=== PATIENT | female | born 1955 | race Caucasian/White ===

== ENCOUNTER 2023-06-05 15:57 | Inpatient (IN) | payer MEDICARE, SELFPAY ==
[2023-06-05] VITALS (20 sets, daily range): BP systolic 109–168; BP diastolic 80–96; PULSE 90–109; RESP 18–20; TEMP 36.7–37.1; O2SAT 92–98; BMI 31.0; BMI 30.3
--- NOTE | 2023-06-05 16:24 | ECG_ITS ---
[facility] Test Date: 2023-06-05 Pat Name: MIRANDA GILLILAND Department: Room: - Gender: Female Creative/Art Director: : 1955 Requested By: CIRO CLEARY Order Number: [id number] Reading MD: ANGELIKA MANUEL Measurements Intervals Hext Rate: 106 P: 78 LA: 152 QRS: 81 QRSD: 88 T: 79 QT: 334 QTc: 396 Interpretive Statements 1120 Sinus tachycardia 0102 ARTIFACT PRESENT 9140 abnormal rhythm ECG Compared to ECG 06/07/2021 00:46:59 No significant changes Electronically Signed On 06-06-2023 7:07:29 EST by ANGELIKA MANUEL
--- NOTE | 2023-06-05 16:25 | ED_ITS ---
Documented by User: Raya Stover 06/05/23 19:24 HPI - SOB/Dyspnea General Chief Complaint: Shortness of Breath/Dyspnea Stated Complaint: Shortness of Breath Time Seen by Provider: 06/05/23 16:24 Source: patient Mode of arrival: walk-in Limitations: no limitations History of Present Illness HPI Narrative: 67 year old female presents to the ED for cough, congestion, SOB, fatigue. Onset was 06/02/23. Denies fever, chills, edema, N/V/D. She was evaluated at an urgent care after the onset. States she tested negative for Covid-19 and influenza. She has hx asthma. She was placed on albuterol and a medrol Dosepak at the urgent care. Reports a pulmonary embolus 10 years ago. She is no longer on blood thinner medication. She was sent to the ED today by her pcp. Denies pain. MD elicited complaint: shortness of breath and cough Related Data Home Medications Medication Instructions Recorded Confirmed albuterol sulfate 90 mcg/actuation 1 inh inhalation DAILY PRN 06/05/23 06/05/23 aerosol inhaler bronchospasm lisinopril 10 1 tab PO DAILY 06/05/23 06/05/23 mg-hydrochlorothiazide 12.5 mg tablet methylprednisolone 4 mg tablets in 4 mg PO DAILY 06/05/23 06/05/23 a dose pack pyrilamine 7.5 mg-dextromethorphan 10 ml PO DAILY 06/05/23 06/05/23 7.5 mg/5 mL oral liquid (Talbott DM) Allergies Allergy/AdvReac Type Severity Reaction Status Date / Time No Known Drug Allergies Allergy Verified 06/05/23 16:10 Review of Systems ROS Constitutional Reports: chills and fatigue; Denies: fever Ears, nose, mouth, and throat Denies: throat pain or neck pain Cardiovascular Denies: chest pain, edema or lightheadedness Respiratory Reports: shortness of breath, cough and wheezing; Denies: stridor Gastrointestinal Denies: abdominal pain, nausea, vomiting or diarrhea Musculoskeletal Denies: back pain or neck pain Neurological Denies: headache, weakness in extremities or dizziness PFSH PFSH Social History Smoking status: Current every day smoker Exam Constitutional Vital Signs, click to edit/add: Last Vital Signs Pulse 100 H 06/05/23 19:48 Resp 20 06/05/23 19:48 BP 154/95 H 06/05/23 19:01 Pulse Ox 93 L 06/05/23 19:48 O2 Del Method Room Air 06/05/23 18:15 Common normals: oriented x3 General appearance: cooperative and ill appearing HENMT Nose: external nose normal External ear: external ears normal Mouth: oral and palatal mucosa normal, lip normal and tongue normal Eye Common normals: conjunctivae normal and no scleral icterus Neck & C-Spine Common normals: supple Chest Chest: symmetrical chest wall rise Respiratory Effort & inspection: tachypneic and labored; no stridor Auscultation: wheezes and diminished lung sounds Cardio Common normals: regular rhythm Rate: tachycardic Extremity General: no edema Neuro Common normals: oriented x3 Sensorium/orientation: awake and alert Course Vital Signs Vital signs: Vital Signs Pulse Rate 105 H 06/05/23 16:10 Respiratory Rate 06/05/23 16:10 Blood Pressure 130/96 H 06/05/23 16:10 Pulse Oximetry 93 L 06/05/23 16:10 Pulse Rate 100 H 06/05/23 19:48 Respiratory Rate 06/05/23 19:48 Blood Pressure 154/95 H 06/05/23 19:01 Pulse Oximetry 93 L 06/05/23 19:48 Oxygen Delivery Method Room Air 06/05/23 18:15 MDM - SOB/Dyspnea MDM Narrative Medical decision making narrative: Chest x-ray was negative for acute findings. Covid-19 and influenza were negative. The patient was given solumedrol, DuoNeb, and Albuterol with little improvement. She has been taking steroids and albuterol at home with no improvement. She has continued increased work of breathing, tachypnea. She will be admitted for further evaluation and treatment. I spoke with Eugenio Frank SANDING MACHINE OPERATOR who was covering for Dr. Duff. He accepted the patient for admission. Differential Diagnosis Differential diagnosis: Likely acute exacerbation of chronic obstructive airways disease, congestive heart failure, community acquired pneumonia, asthma with exacerbation and pulmonary embolism Medical Records Attestation: I reviewed the patient's medical records. Lab Data Attestation: I reviewed the patient's lab results. Labs: Lab Results 06/05/23 06/05/23 Range/Units 16:31 16:35 WBC 8.5 (4.0-11.0) 10^3/uL RBC 4.25 (4.20-5.40) 10^6/uL Hgb 14.4 (12.0-16.0) g/dL Hct 42.8 (36.0-48.0) % MCV 100.7 H (81.0-99.0) fL MCH 33.9 (26.7-34.0) pg MCHC 33.6 (29.9-35.2) g/dL RDW 12.8 (11.0-15.0) % Plt Count 192 (150-450) 10^3/uL MPV 9.1 L (9.5-13.5) fL Neut % (Auto) 82.8 H (43.0-75.0) % Lymph % (Auto) 10.9 L (20.5-60.0) % [place] % (Auto) 5.6 (1.7-12.0) % Eos % (Auto) 0.1 L (0.9-7.0) % Baso % (Auto) 0.4 (0.2-2.0) % Neut # (Auto) 7.1 H (1.4-6.5) 10^3/uL Lymph # (Auto) 0.9 L (1.2-3.8) 10^3/uL [place] # (Auto) 0.5 (0.3-0.8) 10^3/uL Eos # (Auto) 0.0 (0.0-0.7) 10^3/uL Baso # (Auto) 0.0 (0.0-0.1) 10^3/uL Abs Immat Gran (auto) 0.02 (0.00-0.03) 10^3/uL Imm/Tot Granulo (auto) 0.2 (0.0-0.5) % D-Dimer 0.26 (<=0.59) mg/L FEU Sodium 141 (136-145) mmol/L Potassium 4.2 (3.5-5.1) mmol/L Chloride 101 (98-107) mmol/L Carbon Dioxide 32.7 H (21.0-32.0) mmol/L Anion Gap 11.5 BUN 18.0 (7.0-18.0) mg/dL Creatinine 0.63 (0.55-1.02) mg/dL Est GFR ( Amer) >60 (>=60) Est GFR (Non-Af Amer) >60 (>=60) BUN/Creatinine Ratio 28.6 Glucose 104 (74-106) mg/dL Calcium 9.5 (8.5-10.1) mg/dL Troponin I High Sens 4.8 (4.0-51.3) pg/mL NT-Pro-B Natriuret Pep 235.0 (<=900.0) pg/mL SARS-CoV-2 (PCR) Negative (NEGATIVE) Influenza Type A Ag Negative Influenza Type B Ag Negative Imaging Data Chest x-ray: Attestation: I have reviewed the pertinent imaging results. Radiologist's impression: Procedure: XR chest 1V EXAM: XR chest 1V REASON FOR EXAM: Female, 67 years, cough, SOB. TECHNIQUE: A single AP view of the chest is performed. COMPARISON: 06/13/2021. FINDINGS: Cardiac monitoring leads overlie the chest. The lungs are expanded and clear. Normal pleura. The previously seen irregular cavitary lesion in the right upper lobe has resolved. Normal size heart. Normal mediastinum and sharon. Normal visualized pulmonary arteries. Normal visualized aortic arch and descending thoracic aorta. Normal visualized thoracic spine. Normal visualized ribs, clavicles, and shoulders. There is no demonstrated abnormality of the visualized soft tissue structures of the upper abdomen. XR/XR chest 1V IMPRESSION: No acute process in the chest. Electronically authenticated by: LILIANA AMAYA Date: 06/05/2023 17:41 ECG Data Attestation: ?I have reviewed the pertinent ECG results. Interpretation: Measurements Intervals Orr Rate: 106 P: 78 [place]: 152 QRS: 81 QRSD: 88 T: 79 QT: 334 QTc: 396 Interpretive Statements 1120 Sinus tachycardia 0102 ARTIFACT PRESENT 9140 abnormal rhythm ECG No previous ECG available for comparison Discharge Plan Discharge Chief Complaint: Shortness of Breath/Dyspnea Clinical Impression: Asthma with acute exacerbation Patient Disposition: Admitted as Observation Time of Disposition Decision: 18:32 Condition: Fair Documented by User: Slim Mensah MD 06/05/23 20:06 HPI - SOB/Dyspnea General Chief Complaint: Shortness of Breath/Dyspnea Stated Complaint: Shortness of Breath Time Seen by Provider: 06/05/23 16:24 Related Data Home Medications Medication Instructions Recorded Confirmed albuterol sulfate 90 mcg/actuation 1 inh inhalation DAILY PRN 06/05/23 06/05/23 aerosol inhaler bronchospasm lisinopril 10 1 tab PO DAILY 06/05/23 06/05/23 mg-hydrochlorothiazide 12.5 mg tablet methylprednisolone 4 mg tablets in 4 mg PO DAILY 06/05/23 06/05/23 a dose pack pyrilamine 7.5 mg-dextromethorphan 10 ml PO DAILY 06/05/23 06/05/23 7.5 mg/5 mL oral liquid (Talbott DM) Allergies Allergy/AdvReac Type Severity Reaction Status Date / Time No Known Drug Allergies Allergy Verified 06/05/23 16:10 [facility] Social History Smoking status: Current every day smoker Exam Constitutional Vital Signs, click to edit/add: Last Vital Signs Pulse 100 H 06/05/23 19:48 Resp 20 06/05/23 19:48 BP 154/95 H 06/05/23 19:01 Pulse Ox 93 L 06/05/23 19:48 O2 Del Method Room Air 06/05/23 18:15 Course Vital Signs Vital signs: Vital Signs Pulse Rate 105 H 06/05/23 16:10 Respiratory Rate 06/05/23 16:10 Blood Pressure 130/96 H 06/05/23 16:10 Pulse Oximetry 93 L 06/05/23 16:10 Pulse Rate 100 H 06/05/23 19:48 Respiratory Rate 20 06/05/23 19:48 Blood Pressure 154/95 H 06/05/23 19:01 Pulse Oximetry 93 L 06/05/23 19:48 Oxygen Delivery Method Room Air 06/05/23 18:15 MDM - SOB/Dyspnea MDM Narrative Medical decision making narrative: Chest x-ray was negative for acute findings. Covid-19 and influenza were negative. The patient was given solumedrol, DuoNeb, and Albuterol with little improvement. She has been taking steroids and albuterol at home with no improvement. She has continued increased work of breathing, tachypnea. She will be admitted for further evaluation and treatment. I spoke with Eugenio Frank SANDING MACHINE OPERATOR who was covering for Dr. Duff. He accepted the patient for admission. I, Dr Mensah, have reviewed the above progress note and course of action in the ER; agree with the above. I have personally seen and evaluated this patient, gone over history and physical, and discussed disposition and treatment plan with the patient. Lab Data Labs: Lab Results 06/05/23 06/05/23 Range/Units 16:31 16:35 WBC 8.5 (4.0-11.0) 10^3/uL RBC 4.25 (4.20-5.40) 10^6/uL Hgb 14.4 (12.0-16.0) g/dL Hct 42.8 (36.0-48.0) % MCV 100.7 H (81.0-99.0) fL MCH 33.9 (26.7-34.0) pg MCHC 33.6 (29.9-35.2) g/dL RDW 12.8 (11.0-15.0) % Plt Count 192 (150-450) 10^3/uL MPV 9.1 L (9.5-13.5) fL Neut % (Auto) 82.8 H (43.0-75.0) % Lymph % (Auto) 10.9 L (20.5-60.0) % [place] % (Auto) 5.6 (1.7-12.0) % Eos % (Auto) 0.1 L (0.9-7.0) % Baso % (Auto) 0.4 (0.2-2.0) % Neut # (Auto) 7.1 H (1.4-6.5) 10^3/uL Lymph # (Auto) 0.9 L (1.2-3.8) 10^3/uL [place] # (Auto) 0.5 (0.3-0.8) 10^3/uL Eos # (Auto) 0.0 (0.0-0.7) 10^3/uL Baso # (Auto) 0.0 (0.0-0.1) 10^3/uL Abs Immat Gran (auto) 0.02 (0.00-0.03) 10^3/uL Imm/Tot Granulo (auto) 0.2 (0.0-0.5) % D-Dimer 0.26 (<=0.59) mg/L FEU Sodium 141 (136-145) mmol/L Potassium 4.2 (3.5-5.1) mmol/L Chloride 101 (98-107) mmol/L Carbon Dioxide 32.7 H (21.0-32.0) mmol/L Anion Gap 11.5 BUN 18.0 (7.0-18.0) mg/dL Creatinine 0.63 (0.55-1.02) mg/dL Est GFR ( Amer) >60 (>=60) Est GFR (Non-Af Amer) >60 (>=60) BUN/Creatinine Ratio 28.6 Glucose 104 (74-106) mg/dL Calcium 9.5 (8.5-10.1) mg/dL Troponin I High Sens 4.8 (4.0-51.3) pg/mL NT-Pro-B Natriuret Pep 235.0 (<=900.0) pg/mL SARS-CoV-2 (PCR) Negative (NEGATIVE) Influenza Type A Ag Negative Influenza Type B Ag Negative ECG Data Attestation: I personally reviewed and interpreted this ECG as follows: (EKG interpretation. Sinus tachycardia at one 06, normal axis deviation. Artifact seen. QTC of 396.) Discharge Plan Discharge Chief Complaint: Shortness of Breath/Dyspnea Clinical Impression: Asthma with acute exacerbation Patient Disposition: Admitted as Observation Time of Disposition Decision: 18:32 Condition: Fair
[2023-06-05] MEDS: IPRATROPIUM/ALBUTEROL SULFATE 3 ML AMPUL.NEB IH ×2 (16:36→22:57)
[2023-06-05] MEDS: METHYLPREDNISOLONE SOD SUCC PF 125 MG/2 ML VIAL IVP (16:45)
[2023-06-05 16:52] LABS: Basophils Percent Auto 0.4 % (0.2-2.0); Eosinophils Percent Auto 0.1 % (0.9-7.0); Hematocrit 42.8 % (36.0-48.0); Hemoglobin 14.4 g/dL (12.0-16.0); Immature Granulocytes Abs Auto 0.02 10^3/uL (0.00-0.03); Immature Granulocytes Pct Auto 0.2 % (0.0-0.5); Lymphocytes Absolute Auto 0.9 10^3/uL (1.2-3.8); Lymphocytes Percent Auto 10.9 % (20.5-60.0); Mean Corpuscular HGB Conc 33.6 g/dL (29.9-35.2); Mean Corpuscular Hemoglobin 33.9 pg (26.7-34.0); Mean Corpuscular Volume 100.7 fL (81.0-99.0); Mean Platelet Volume 9.1 fL (9.5-13.5); Monocytes Absolute Auto 0.5 10^3/uL (0.3-0.8); Monocytes Percent Auto 5.6 % (1.7-12.0); Neutrophils Absolute Auto 7.1 10^3/uL (1.4-6.5); Neutrophils Percent Auto 82.8 % (43.0-75.0); Platelet Count 192 10^3/uL (150-450); Red Blood Count 4.25 10^6/uL (4.20-5.40); Red Cell Distribution Width 12.8 % (11.0-15.0); White Blood Count 8.5 10^3/uL (4.0-11.0)
--- NOTE | 2023-06-05 17:02 | XR_ITS ---
The [address] [address] Patient Name: MIRANAD GILLILAND MRN: [id number] date: 1955 Sex: F Assigned Patient Location: ED.MAIN Current Patient Location: ER Accession/Order Number: [id number] Exam Date: 06/05/2023 16:55 Report Date: 06/05/2023 17:41 At the request of: SATHYA HELM Procedure: XR chest 1V EXAM: XR chest 1V REASON FOR EXAM: Female, 67 years, cough, SOB. TECHNIQUE: A single AP view of the chest is performed. COMPARISON: 06/13/2021. FINDINGS: Cardiac monitoring leads overlie the chest. The lungs are expanded and clear. Normal pleura. The previously seen irregular cavitary lesion in the right upper lobe has resolved. Normal size heart. Normal mediastinum and sharon. Normal visualized pulmonary arteries. Normal visualized aortic arch and descending thoracic aorta. Normal visualized thoracic spine. Normal visualized ribs, clavicles, and shoulders. There is no demonstrated abnormality of the visualized soft tissue structures of the upper abdomen. XR/XR chest 1V IMPRESSION: No acute process in the chest. Electronically authenticated by: LILIANA AMAYA Date: 06/05/2023 17:41
[2023-06-05 17:06] LABS: D Dimer 0.26 mg/L FEU (<=0.59)
[2023-06-05 17:08] LABS: Influenza Virus A Antigen Negative; Influenza Virus B Antigen Negative; Internal Control Within Normal Limits; SARS-CoV-2 Ag NEGATIVE (NEGATIVE)
[2023-06-05 17:13] LABS: Anion Gap 11.5; BUN Creatinine Ratio 28.6; Calcium 9.5 mg/dL (8.5-10.1); Carbon Dioxide 32.7 mmol/L (21.0-32.0); Chloride 101 mmol/L (98-107); Estimated GFR (African America >60 (>=60); Estimated GFR (Non-African Ame >60 (>=60); Glucose 104 mg/dL (74-106); Potassium 4.2 mmol/L (3.5-5.1); Sodium 141 mmol/L (136-145); Troponin I High Sensitivity 4.8 pg/mL (4.0-51.3)
[2023-06-05] MEDS: ALBUTEROL SULFATE 2.5 MG/3 ML VIAL NEB IH (18:12)
[2023-06-05] MEDS: GUAIFENESIN 600 MG TAB.ER.12H PO (21:51)
[2023-06-06] VITALS (15 sets, daily range): BP systolic 148–185; BP diastolic 82–103; PULSE 89–107; RESP 18–20; TEMP 36.4–36.6; O2SAT 90–94; BMI 31.0
[2023-06-06] MEDS: METHYLPREDNISOLONE SOD SUCC PF 125 MG/2 ML VIAL 60 MG IVP ×3 (01:32→17:26)
[2023-06-06] MEDS: IPRATROPIUM/ALBUTEROL SULFATE 3 ML AMPUL.NEB IH ×6 (04:02→23:56)
[2023-06-06 05:26] LABS: Hematocrit 40.7 % (36.0-48.0); Hemoglobin 13.7 g/dL (12.0-16.0); Mean Corpuscular HGB Conc 33.7 g/dL (29.9-35.2); Mean Corpuscular Hemoglobin 33.6 pg (26.7-34.0); Mean Corpuscular Volume 99.8 fL (81.0-99.0); Mean Platelet Volume 9.2 fL (9.5-13.5); Platelet Count 162 10^3/uL (150-450); Red Blood Count 4.08 10^6/uL (4.20-5.40); Red Cell Distribution Width 12.6 % (11.0-15.0); White Blood Count 4.4 10^3/uL (4.0-11.0)
[2023-06-06 05:34] LABS: Anion Gap 9.9; BUN Creatinine Ratio 23.2; Calcium 9.4 mg/dL (8.5-10.1); Carbon Dioxide 32.6 mmol/L (21.0-32.0); Chloride 100 mmol/L (98-107); Estimated GFR (African America >60 (>=60); Estimated GFR (Non-African Ame >60 (>=60); Glucose 170 mg/dL (74-106); Potassium 3.5 mmol/L (3.5-5.1); Sodium 139 mmol/L (136-145)
[2023-06-06 05:47] LABS: Atypical Lymphocytes Abs Man 0.26; Lymphocytes Absolute Manual 0.22 10^3/uL (1.20-3.80); Monocytes Absolute Manual 0.04 10^3/uL (0.30-0.80); Segmented Neut Absolute Manual 3.87 10^3/uL (1.4-6.5)
[2023-06-06] MEDS: LISINOPRIL 10 MG TABLET PO (09:02)
[2023-06-06] MEDS: ENOXAPARIN SODIUM 40 MG/0.4 ML SYRINGE SUBQ (09:02)
[2023-06-06] MEDS: HYDROCHLOROTHIAZIDE 25 MG TABLET 12.5 MG PO (09:02)
[2023-06-06] MEDS: GUAIFENESIN 600 MG TAB.ER.12H PO ×2 (09:03→20:56)
--- NOTE | 2023-06-06 09:10 | CT_ITS ---
[address] [address] Patient Name: MIRANDA GILLILAND MRN: [id number] date: 1955 Sex: F Assigned Patient Location: [place] Current Patient Location: [place] Accession/Order Number: [id number] Exam Date: 06/06/2023 09:40 Report Date: 06/06/2023 10:08 At the request of: CIRO CLEARY Procedure: CT angio chest EXAMINATION: CT angio chest HISTORY: SOB, History of PE COMPARISON: 06/05/2023 chest x-ray. 06/13/2021 CT chest TECHNIQUE: Multi-planar CT images were created with IV contrast. Axial, Coronal, and Sagittal images. Dose reduction techniques were achieved by using automated exposure control and/or adjustment of mA and/or kV according to patient size and/or use of iterative reconstruction technique. FINDINGS: LUNGS: Resolution of the previously identified right upper lobe abscess with linear opacities likely representing residual scarring. Mild peribronchial thickening. Scattered punctate opacities with a peripheral predominance measuring up to 5 mm in size. PLEURA: Incidental azygos fissure. VASCULATURE: Normal postcontrast opacification of the central pulmonary arterial tree with no filling defects AFSHIN: No mass or adenopathy. MEDIASTINUM: No mass or adenopathy. CARDIAC: No enlargement or pericardial effusion. Moderate to heavy coronary atherosclerosis AORTA: No aneurysm or dissection. Moderate atherosclerosis CHEST WALL: No mass or axillary adenopathy. BONES: No bone lesion or fracture. LIMITED ABDOMEN: No suspicious findings. Limited images of the upper abdomen. OTHER: Negative. CT/CT angio chest IMPRESSION: No central pulmonary thromboembolic disease Scattered peripheral patchy infiltrates, consider atypical pneumonia/bronchiolitis Electronically authenticated by: CALI BRITO Date: 06/06/2023 10:08
[2023-06-06 09:31] LABS: Adenovirus NOT DETECTED (NOT DETECTE); Bordetella parapertussis NOT DETECTED (NOT DETECTE); Coronavirus 229E NOT DETECTED (NOT DETECTE); Coronavirus HKU1 NOT DETECTED (NOT DETECTE); Coronavirus NL63 NOT DETECTED (NOT DETECTE); Coronavirus OC43 NOT DETECTED (NOT DETECTE); Human Metapneumovirus NOT DETECTED (NOT DETECTE); Human Rhinovirus/Enterovirus NOT DETECTED (NOT DETECTE); Influenza A NOT DETECTED (NOT DETECTE); Influenza B NOT DETECTED (NOT DETECTE); Mycoplasma pneumoniae NOT DETECTED (NOT DETECTE); Parainfluenza Virus 1 NOT DETECTED (NOT DETECTE); Parainfluenza Virus 2 NOT DETECTED (NOT DETECTE); Parainfluenza Virus 3 NOT DETECTED (NOT DETECTE); Parainfluenza Virus 4 NOT DETECTED (NOT DETECTE); SARS-CoV-2 NOT DETECTED (NOT DETECTE)
--- NOTE | 2023-06-06 10:11 | CM.NOTE ---
Rounding with Dr. Duff. Pt. sitting up on the edge of bed. No oxygen on at this time. Discussed recent CT of chest and Dr. Duff awaiting results and respiratory panel. Patient discussed son passing away and patient getting custody of 16 year old grandson and feeling stressed. Nurse Giles does not feel patient needs a PT or OT eval, getting up around room without difficulty. No noted discharge needs at this time. Will continue to follow.
[2023-06-06 10:41] LABS: Respiratory Syncytial Virus DETECTED (NOT DETECTE)
--- NOTE | 2023-06-06 11:30 | CM.NOTE ---
Important Message From Medicare discussed with pt, pt verbalizes understanding and signs paper. Original given to pt and copy placed on pt's chart.
--- NOTE | 2023-06-06 11:44 | P.HP_ITS ---
H&P: HPI History of Present Illness Chief complaint: Shortness of Breath Asthma excerbation Narrative: 67 y/o female sent to ER for SOB. C/o cough, congestion, and rhinorrhea for several days. Seen at urgent care and Covid negative. Given albuterol and medrol but no improvement. Continued to have severe SOB and fatigue with exertion. Chest tight and hard to catch breath. Frequent dry cough. Scheduled in office but on arrival noticed to have increased work of breathing and tachypnea and directed to ER. Normal SpO2 on room air. Given solu-medrol and DuoNeb but continued symptoms. Chest x-ray and d-dimer negative. Admitted for treatment. Started solu-medrol and DuoNeb. History of PE and cavitary pneumonia in past and CT performed which showed atypical pneumonia. Feels slightly better this am but continued SOB. Review of Systems ROS Constitutional Denies: fever, chills or night sweats Cardiovascular Denies: chest pain, palpitations or edema Respiratory Reports: shortness of breath, cough and wheezing Gastrointestinal Denies: abdominal pain, nausea, vomiting or diarrhea Genitourinary Denies: painful urination [facility] [place] Medical History (Updated 06/06/23 @ 11:44 by Piter Duff MD) Prediabetes ?R73.03 - Prediabetes (ICD-10) COPD (chronic obstructive pulmonary disease) ?J44.9 - Chronic obstructive pulmonary disease, unspecified (ICD-10) Asthma with acute exacerbation ?J45.901 - Unspecified asthma with (acute) exacerbation (ICD-10) 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, unspecified ear (ICD-10) Pulmonary embolism ?I26.99 - Other pulmonary embolism without acute cor pulmonale (ICD-10) Surgical History (Updated 06/05/23 @ 21:12 by Ludy Graham RN) H/O tubal ligation ?Z98.51 - Tubal ligation status (ICD-10) History of tonsillectomy ?Z90.89 - Acquired absence of other organs (ICD-10) Family History (Updated 06/05/23 @ 21:13 by Ludy Graham RN) Mother Family history of cancer Father Family history of CHF (congestive heart failure) Family history of hypertension Family history of myocardial infarction Social History (Updated 06/05/23 @ 21:17 by Ludy Graham RN) Within the past year, how often did you have a drink containing alcohol: monthly or less Within the past year, how many standard drinks containing alcohol did you have on a typical day: 1 or 2 Within the past year, how often did you have six or more drinks on one occasion: never Total score: 0 Score interpretation: A score less than 3 is consistent with normal alcohol consumption. 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 Known occupational exposures/hazards: Yes Known occupational exposures/hazards details: silica , dust particles Highest level of school completed/degree received: high school graduate Are you now , , , , never or living with a partner: In a typical week, how many times do you talk on the telephone with family, friends, or neighbors: 3 or more times per week How often do you get together with friends or relatives: once per week How often do you attend caodaism or confucianism services: never Do you belong to any clubs or organizations such as caodaism groups unions, [employer] or athletic groups, or school groups: no Total score: 1 Score interpretation: A score of less than or equal to 1 indicates the most socially isolated. Little interest or pleasure in doing things: several days Feeling down, depressed, or hopeless: several days Feel stressed/tense/nervous/anxious/difficulty sleeping: to some extent Life stressors: recent of family or friend Life stressor details: son Do you think of yourself as: straight/heterosexual Gender Identity: female Meds Home Medications and Allergies Home Medications Medication Instructions Recorded Confirmed Type albuterol sulfate 90 mcg/actuation 2 inh inhalation Q4H PRN 06/05/23 06/06/23 History aerosol inhaler bronchospasm lisinopril 10 1 tab PO DAILY 06/05/23 06/05/23 History mg-hydrochlorothiazide 12.5 mg tablet methylprednisolone 4 mg tablets in 4 mg PO DAILY 06/05/23 06/06/23 History a dose pack omeprazole .ROUTE 06/05/23 History pyrilamine 7.5 mg-dextromethorphan 10 ml PO DAILY 06/05/23 06/06/23 History 7.5 mg/5 mL oral liquid ([place] [facility]) Allergies Allergy/AdvReac Type Severity Reaction Status Date / Time No Known Drug Allergies Allergy Verified 06/05/23 16:10 Exam Constitutional Vital Signs, click to edit/add: Last Vital Signs Temp 97.8 F 06/06/23 07:48 Pulse 89 06/06/23 07:48 Resp 18 06/06/23 07:49 BP 185/91 H 06/06/23 07:48 Pulse Ox 94 L 06/06/23 11:17 O2 Del Method Room Air 06/06/23 11:17 O2 Flow Rate 2 06/05/23 20:42 Documenting provider has reviewed patient's vital signs: yes Common normals: no apparent distress, oriented x3 and alert HENMT Common normals: normocephalic Eye Common normals: PERRL and EOMs intact bilaterally Respiratory Auscultation: wheezes and diminished lung sounds Cardio Common normals: regular rate, regular rhythm, no gallops, no murmurs and no rub GI Common normals: Normal to inspection, nondistended, normoactive bowel sounds present and non-tender Extremity Common normals: no pedal edema Results Labs Labs: Short CBC 06/05/23 06/06/23 Range/Units 16:31 05:06 WBC 8.5 4.4 (4.0-11.0) 10^3/uL Hgb 14.4 13.7 (12.0-16.0) g/dL Hct 42.8 40.7 (36.0-48.0) % Plt Count 192 162 (150-450) 10^3/uL BMP 06/05/23 06/06/23 16:31 05:06 Sodium 141 139 Potassium 4.2 3.5 Chloride 101 100 Carbon Dioxide 32.7 H 32.6 H BUN 18.0 16.0 Creatinine 0.63 0.69 Glucose 104 170 H Calcium 9.[address] scan - chest: Attestation: I have reviewed the pertinent imaging results. Assessment and Plan Assessment and Plan (1) COPD exacerbation: (2) RSV (respiratory syncytial virus infection): (3) Hypertension: (4) Personal history of pulmonary embolism: Plan Continue Solu-medrol and DuoNeb for COPD. CT showed pneumonia and respiratory panel positive for RSV. Add levaquin for possible bacterial infection. Resume home medication. Continued chest tightness and poor air movement and add PEP. Patient will require at least 2 midnights in the hospital for treatment which qualifies for inpatient status.
[2023-06-06] MEDS: LEVOFLOXACIN IN DEXTROSE 5 % 750 MG/150 ML IV.SOLN 100 MG IV (12:20)
--- OUTSIDE RECORDS SUMMARY | 2023-06-06 13:51 | XMS_ITS | CCD ---
Author Name Unknown Address [address] [facility] [address] [place] [address] Organization [facility] Care Team Providers Care Merchandise Processor Name Role Phone TORRES, DR REAGAN Vance Consulting Unavailable NADERER, DR CIRO Berg Admitting Unavailable NADERER, DR CIRO Berg Attending Unavailable [place], DR CALI Anthony Consulting Unavailable NADERER, DR CIRO Berg Consulting Unavailable SAMSA, OXANA Consulting Unavailable Policaro, Mulu Consulting Unavailable Fernando, Terell Consulting Unavailable ROBIN, DR ASTRID Vance Consulting Unavailable NADERERajiv, DR CIRO Berg Admitting Unavailable NADERERajiv, DR CIRO Berg Attending Unavailable NADERER, DR CIRO Berg Consulting Unavailable Problems Problem Classification Problem Date Documented Da te Episodic/Chronic Asthma (1 source) Mild intermittent asthma, uncomplicated; Translations: [MILD INTERMIT ASTHMA UNCOMPLICATED] Onset: 06-22-2021 Chronic Chronic obstructive pulmonary disease and bronchiectasis (1 source) Centrilobular emphysema; Translations: [CENTRILOBULAR EMPHYSEMA] Onset: 06-22-2021 Chronic E Codes: Adverse effects of medical drugs (1 source) Adverse effect of glucocorticoids and synthetic analogues, initial encounter; Translations: [ADVRS EFF GLUCOCORT SYN ANALOG INIT] Onset: 06-22-2021 Episodic Esophageal disorders (1 source) Gastro-esophageal reflux disease without esophagitis; Translations: [GERD WITHOUT ESOPHAGITIS] Onset: 06-22-2021 Chronic Mycoses (1 source) Candidal stomatitis; Translations: [CANDIDAL STOMATITIS] Onset: 06-22-2021 Episodic Other congenital anomalies (1 source) Accessory lobe of lung; Translations: [ACCESSORY LOBE OF LUNG] Onset: 06-22-2021 Chronic Other gastrointestinal disorders (4 sources) Other specified symptoms and signs involving the digestive system and abdomen; Translations: [OTH SPEC SX SIGNS DIGESTV SYS ABD] Onset: 05-16-2021 Episodic Pleurisy; pneumothorax; pulmonary collapse (1 source) Pyothorax without fistula; Translations: [PYOTHORAX WITHOUT FISTULA] Onset: 06-22-2021 Episodic Pneumonia (except that caused by tuberculosis or sexually transmitted disease) (3 sources) Pneumonia, unspecified organism; Translations: [PNEUMONIA UNSPECIFIED ORGANISM] Onset: 06-07-2021 Episodic Respiratory failure; insufficiency; arrest (adult) (1 source) Acute respiratory failure with hypoxia; Translations: [ACUTE RESPIRATORY FAIL W/HYPOXIA] Onset: 06-22-2021 Episodic Septicemia (except in labor) (2 sources) Sepsis due to Methicillin susceptible Staphylococcus aureus; Translations: [Severe sepsis without septic shock] Onset: 06-22-2021 Episodic Substance-related disorders (1 source) Nicotine dependence, cigarettes, uncomplicated; Translations: [NICOTINE DEPEND CIGARETTES UNCOMP] Onset: 06-22-2021 Chronic Unclassified (1 source) CONTACT W/AND (SUSP) EXPOS COVID-19; Translations: [CONTACT W/AND (SUSP) EXPOS COVID-19] Onset: 06-22-2021 Results Test Name Value Interpretation Reference Range Facility [id number] [facility] 06-14-2021 [id number], Serum 266 mg/dL Critically high 101-187 [facility] Comment on above: Result Comment: Perf ormed at: CB Performed By: #### C [facility] #### [facility] [address] [place] [address] Dr. Jessica Gonzalez Phenotype (PI) MM Normal [facility] Comment on above: Result Comment: Phen otype Population A-1-AT Concentration* Incidence % % of MM (Typical Range) MM 86.5% 100% (96 - 189) MS 8.0% 86% (83 - 161) MZ 3.9% 61% (60 - 111) FM 0.4% 100% (93 - 191) SZ 0.3% 41% (42 - 75) SS 0.1% 64% (62 - 119) ZZ 0.05% 19% (16 - 38) FS 0.05% 70% (70 - 128) FZ Unknown 46% (44 - 88) FF Unknown Unknown *A-1-AT concentration in the homozygous MM phenotype is taken as the reference normal. Percent deficiency in each phenotype is reported relative to this reference. Ranges used to confirm phenotype. Performed at: BN Performed By: #### C VDTB #### [facility] [address] [place] [address] Dr. Jessica Gonzalez CBC W MANUAL DIFFon 06-14-19 22 ATYPICAL LYMPH # Normal [facility] Comment on above: Performed By: #### C PATTIEMAN #### [facility] [address] [place] [address] Dr. Jessica Gonzalez ATYPICAL LYMPH % Normal [facility] Comment on above: Performed By: #### C PATTIEMAN #### [facility] [address] [place] [address] Dr. Jessica Gonzalez BAND # 1.2 103/ul Critically high 0.0-0.3 [facility] Comment on above: Performed By: #### C ANDRES #### [facility] [address] [place] [address] Dr. Jessica Gonzalez BAND % 6 % Critically high 0-5 [facility] Comment on above: Performed By: #### C ANDRES #### [facility] [address] [place] [address] Dr. Jessica Gonzalez BASOM # 0.00 103/ul Normal 0.00-0.10 [facility] Comment on above: Performed By: #### C ANDRES #### [facility] [address] [place] [address] Dr. Jessica Gonzalez BASOM % 0.0 % Critically low 0.2-2.0 [facility] Comment on above: Performed By: #### C ANDRES #### [facility] [address] [place] [address] Dr. Jessica Gonzalez BLAST # Normal [facility] Comment on above: Performed By: #### C ANDRES #### [facility] [address] [place] [address] Dr. Jessica Gonzalez BLAST % Normal [facility] Comment on above: Performed By: #### C ANDRES #### [facility] [address] [place] [address] Dr. Jessica Gonzalez CORRECTED WBC Normal 4.0-11.0 [facility] Comment on above: Performed By: #### C ANDRES #### [facility] [address] [address] [address] Jessica Gonzalez EOS # 0.00 103/ul Normal 0.00-0.70 [facility] Comment on above: Performed By: #### C ANDRES #### [facility] [address] [address] [address] Jessica Gonzalez EOS% 0.0 % Critically low 0.9-7.0 [facility] Comment on above: Performed By: #### C ANDRES #### [facility] [address] [address] [address] Jessica Gonzalez HCT 37.7 % Normal 36.0-48.0 [facility] Comment on above: Performed By: #### C ANDRES #### [facility] [address] [place] [address] Dr. Jessica Gonzalez HGB 12.6 g/dl Normal 12.0-16.0 [facility] Comment on above: Performed By: #### C ANDRES #### [facility] [address] [place] [address] Dr. Jessica Gonzalez LYMPHM # 1.76 103/ul Normal 1.20-3.80 [facility] Comment on above: Performed By: #### C ANDRES #### [facility] [address] [place] [address] Dr. Jessica Gonzalez LYMPHM% 9.0 % Critically low 20.5-60.0 [facility] Comment on above: Performed By: #### C ANDRES #### [facility] [address] [place] [address] Dr. Jessica Gonzalez MCH 33.4 pg Normal 26.7-34.0 [facility] Comment on above: Performed By: #### C ANDRES #### [facility] [address] [place] [address] Dr. Jessica Gonzalez MCHC 33.4 g/dl Normal 29.9-35.2 [facility] Comment on above: Performed By: #### C ANDRES #### [facility] [address] [place] [address] Dr. Jessica Gonzalez MCV 100.0 fL Critically high 81.0-99.0 [facility] Comment on above: Performed By: #### C BCMAN #### [facility] [address] [place] [address] Dr. Jessica Gonzalez METAMYELOCYTE # Normal [facility] Comment on above: Performed By: #### C BCMAN #### [facility] [address] [place] [address] Dr. Jessica Gonzalez METAMYELOCYTE % Normal [facility] Comment on above: Performed By: #### C ANDRES #### [facility] [address] [place] [address] Dr. Jessica Gonzalez MONOM# 0.98 103/ul Critically high 0.30-0.80 [facility] Comment on above: Performed By: #### C ANDRES #### [facility] [address] [place] [address] Dr. Jessica Gonzalez MONOM% 5.0 % Normal 1.7-12.0 [facility] Comment on above: Performed By: #### C ANDRES #### [facility] [address] [place] [address] Dr. Jessica Gonzalez MPV 9.3 fL Critically low 9.5-13.5 [facility] Comment on above: Performed By: #### C ANDRES #### [facility] [address] [place] [address] Dr. Jessica Gonzalez MYELOCYTE # Normal [facility] Comment on above: Performed By: #### C ANDRES #### [facility] [address] [place] [address] Dr. Jessica Gonzalez MYELOCYTE % Normal [facility] Comment on above: Performed By: #### C ANDRES #### [facility] [address] [place] [address] Dr. Jessica Gonzalez NRBC Normal [facility] Comment on above: Performed By: #### C ANDRES #### [facility] [address] [place] [address] Dr. Jessica Gonzalez PLT 271 103/ul Normal 150-450 [facility] Comment on above: Performed By: #### C BCMAN #### [facility] [address] [address] [address] Jessica Gonzalez RBC 3.77 106/ul Critically low 4.20-5.40 [facility] Comment on above: Performed By: #### C BCMAN #### [facility] [address] [address] [address] Jessica Gonzalez RDW 13.6 % Normal 11.0-15.0 [facility] Comment on above: Performed By: #### C BCMAN #### [facility] [address] [address] [address] Jessica Gonzalez SEG # 15.68 103/ul Critically high 1.40-6.50 [facility] Comment on above: Performed By: #### C PATTIEMAN #### [facility] [address] [address] [address] Jessica Gonzalez SEG % 80.0 % Critically high 43.0-75.0 [facility] Comment on above: Performed By: #### C BCMAN #### [facility] [address] [address] [address] Jessica Gonzalez WBC 19.6 103/ul Critically high 4.0-11.0 [facility] Comment on above: Performed By: #### C ANDRES #### [facility] [address] [address] [address] Jessica Gonzalez PROF CHEM 8 (BAS METB)on Anion gap [Moles/Vol] 12.0 mmol/L Normal [facility] Comment on above: Performed By: #### B MP #### [facility] [address] [address] [address] Jessica Gonzalez Calcium [Mass/Vol] 8.7 mg/dL Normal 8.4-10.2 [facility] Comment on above: Performed By: #### B MP #### [facility] [address] [address] [address] Jessica Gonzalez Chloride [Moles/Vol] 103 mmol/L Normal 98-107 [facility] Comment on above: Performed By: #### B MP #### [facility] [address] [address] [address] Jessica Gonzalez CO2 [Moles/Vol] 27.7 mmol/L Normal 22.0-30.0 [facility] Comment on above: Performed By: #### B MP #### [facility] [address] [address] [address] Jessica Gonzalez Creatinine [Mass/Vol] 0.85 mg/dL Normal 0.52-1.04 [facility] Comment on above: Performed By: #### B MP #### [facility] [address] [address] [address] Jessica Gonzalez EGFR-AF MAURITANIAN >60 Normal >=60 [facility] Comment on above: Performed By: #### B MP #### [facility] [address] [address] [address] Jessica Gonzalez EGFR-NON AF MAURITANIAN >60 Normal >=60 [facility] Comment on above: Performed By: #### B MP #### [facility] [address] [address] [address] Jessica Gonzalez Glucose [Mass/Vol] 156 mg/dL Critically high 74-106 [facility] Comment on above: Performed By: #### B MP #### [facility] [address] [address] [address] Jessica Gonzalez Potassium [Moles/Vol] 3.7 mmol/L Normal 3.4-5.0 [facility] Comment on above: Performed By: #### B MP #### [facility] [address] [address] [address] Jessica Gonzalez Sodium [Moles/Vol] 139 mmol/L Normal 137-145 [facility] Comment on above: Performed By: #### B MP #### [facility] [address] [address] [address] Jessica Gonzalez Urea nitrogen [Mass/Vol] 18.0 mg/dL Critically high 7.0-17.0 [facility] Comment on above: Performed By: #### B MP #### [facility] [address] [place] [address] Dr. Jessica Gonzalez Urea nitrogen/Creatinine [Mass ratio] 21.2 mg/mg Normal [facility] Comment on above: Performed By: #### B MP #### [facility] [address] [place] [address] Dr. Jessica Gonzalez CBC W MANUAL DIFFon 06-13-19 22 ATYPICAL LYMPH # Normal [facility] Comment on above: Performed By: #### C VDTBH #### [facility] [address] [place] [address] Dr. Jessica Gonzalez ATYPICAL LYMPH % Normal [facility] Comment on above: Performed By: #### C VDTBH #### [facility] [address] [place] [address] Dr. Jessica Gonzalez BAND # 2.0 103/ul Critically high 0.0-0.3 [facility] Comment on above: Performed By: #### C VDTBH #### [facility] [address] [place] [address] Dr. Jessica Gonzalez BAND % 11 % Critically high 0-5 [facility] Comment on above: Performed By: #### C VDTBH #### [facility] [address] [place] [address] Dr. Jessica Gonzalez BASOM # 0.00 103/ul Normal 0.00-0.10 [facility] Comment on above: Performed By: #### C VDTBH #### [facility] [address] [place] [address] Dr. Jessica Gonzalez BASOM % 0.0 % Critically low 0.2-2.0 [facility] Comment on above: Performed By: #### C VDTBH #### [facility] [address] [place] [address] Dr. Jessica Gonzalez BLAST # Normal [facility] Comment on above: Performed By: #### C VDTBH #### [facility] [address] [place] [address] Dr. Jessica Gonzalez BLAST % Normal [facility] Comment on above: Performed By: #### C VDTBH #### [facility] [address] [place] [address] Dr. Jessica Gonzalez CORRECTED WBC Normal 4.0-11.0 [facility] Comment on above: Performed By: #### C VDTBH #### [facility] [address] [place] [address] Dr. Jessica Gonzalez EOS # 0.18 103/ul Normal 0.00-0.70 [facility] Comment on above: Performed By: #### C VDTBH #### [facility] [address] [place] [address] Dr. Jessica Gonzalez EOS% 1.0 % Normal 0.9-7.0 [facility] Comment on above: Performed By: #### C VDTBH #### [facility] [address] [place] [address] Dr. Jessica Gonzalez HCT 37.5 % Normal 36.0-48.0 [facility] Comment on above: Performed By: #### C VDTBH #### [facility] [address] [place] [address] Dr. Jessica Gonzalez HGB 12.5 g/dl Normal 12.0-16.0 [facility] Comment on above: Performed By: #### C VDTBH #### [facility] [address] [place] [address] Dr. Jessica Gonzalez LYMPHM # 2.00 103/ul Normal 1.20-3.80 [facility] Comment on above: Performed By: #### C VDTBH #### [facility] [address] [place] [address] Dr. Jessica Gonzalez LYMPHM% 11.0 % Critically low 20.5-60.0 [facility] Comment on above: Performed By: #### C VDTBH #### [facility] [address] [place] [address] Dr. Jessica Gonzalez MCH 33.2 pg Normal 26.7-34.0 [facility] Comment on above: Performed By: #### C VDTBH #### [facility] [address] [place] [address] Dr. Jessica Gonzalez MCHC 33.3 g/dl Normal 29.9-35.2 [facility] Comment on above: Performed By: #### C VDTBH #### [facility] [address] [place] [address] Dr. Jessica Gonzalez MCV 99.7 fL Critically high 81.0-99.0 [facility] Comment on above: Performed By: #### C VDTBH #### [facility] [address] [place] [address] Dr. Jessica Gonzalez METAMYELOCYTE # Normal [facility] Comment on above: Performed By: #### C VDTBH #### [facility] [address] [place] [address] Dr. Jessica Gonzalez METAMYELOCYTE % Normal [facility] Comment on above: Performed By: #### C VDTBH #### [facility] [address] [place] [address] Dr. Jessica Gonzalez MONOM# 1.46 103/ul Critically high 0.30-0.80 [facility] Comment on above: Performed By: #### C VDTBH #### [facility] [address] [place] [address] Dr. Jessica Gonzalez MONOM% 8.0 % Normal 1.7-12.0 [facility] Comment on above: Performed By: #### C VDTBH #### [facility] [address] [place] [address] Dr. Jessica Gonzalez MPV 10.2 fL Normal 9.5-13.5 [facility] Comment on above: Performed By: #### C VDTBH #### [facility] [address] [place] [address] Dr. Jessica Gonzalez MYELOCYTE # Normal [facility] Comment on above: Performed By: #### C VDTBH #### [facility] [address] [place] [address] Dr. Jessica Gonzalez MYELOCYTE % Normal [facility] Comment on above: Performed By: #### C VDTBH #### [facility] [address] [place] [address] Dr. Jessica Gonzalez NRBC Normal [facility] Comment on above: Performed By: #### C VDTBH #### [facility] [address] [place] [address] Dr. Jessica Gonzalez PLT 223 103/ul Normal 150-450 [facility] Comment on above: Performed By: #### C VDTBH #### [facility] [address] [place] [address] Dr. Jessica Gonzalez RBC 3.76 106/ul Critically low 4.20-5.40 [facility] Comment on above: Performed By: #### C VDTBH #### [facility] [address] [place] [address] Dr. Jessica Gonzalez RDW 13.8 % Normal 11.0-15.0 [facility] Comment on above: Performed By: #### C VDTBH #### [facility] [address] [place] [address] Dr. Jessica Gonzalez SEG # 12.56 103/ul Critically high 1.40-6.50 [facility] Comment on above: Performed By: #### C VDTBH #### [facility] [address] [place] [address] Dr. Jessica Gonzalez SEG % 69.0 % Normal 43.0-75.0 [facility] Comment on above: Performed By: #### C VDTBH #### [facility] [address] [place] [address] Dr. Jessica Gonzalez WBC 18.2 103/ul Critically high 4.0-11.0 [facility] Comment on above: Performed By: #### C VDTBH #### [facility] [address] [place] [address] CHEST WO CONon 06-13-2021 CT CHEST WO CON EXAMINATION: CT CHES T WO CON HISTORY: SHORTNESS OF BREATH , right upper lobe pneumonia COMPARISON: 06/07/2021 TECHNIQUE: Multi-planar CT images were created with IV contrast. Axial, Coronal, and Sagittal images. Dose reduction techniques were achieved by using automated exposure control and/or adjustment of mA and/or kV according to patient size and/or use of iterative reconstruction technique. FINDINGS: LUNGS: There is been marked change in appearance of the right upper lobe infiltrate with a new 8.5 x 4.2 x 9.3 cm cavitary lesion having an irregular thickened wall with multiple septations. The wall measures up to 2.2 cm inferiorly. Some surrounding groundglass attenuation is noted. PLEURA: No mass, effusion, or pneumothorax. VASCULATURE: No abnormality. AFSHIN: No pathologic lymphadenopathy MEDIASTINUM: No pathologic lymphadenopathy CARDIAC: No enlargement or pericardial effusion. Moderate coronary atherosclerosis AORTA: No aortic aneurysm. Atherosclerosis. CHEST WALL: No mass or axillary adenopathy. BONES: No bone lesion or fracture. Moderate degenerative spondylosis LIMITED ABDOMEN: 2.1 cm hypodensity of the left kidney possibly a cyst. Extensive atherosclerosis. OTHER: Negative. IMPRESSION: New thick walled irregular cavitary lesion in the right upper lobe. Pulmonary abscess is favored Electronically authenticated by: CALI BRITO Date: 2021-06-13 09:23 Normal [facility] PROF CHEM 8 (BAS METB)on Anion gap [Moles/Vol] 11.7 mmol/L Normal [facility] Comment on above: Performed By: #### C VDTBH #### [facility] [address] [place] [address] Dr. Jessica Gonzalez Calcium [Mass/Vol] 8.9 mg/dL Normal 8.4-10.2 [facility] Comment on above: Performed By: #### C VDTBH #### [facility] [address] [place] [address] Dr. Jessica Gonzalez Chloride [Moles/Vol] 106 mmol/L Normal 98-107 [facility] Comment on above: Performed By: #### C VDTBH #### [facility] [address] [address] [address] Jessica Gonzalez CO2 [Moles/Vol] 26.1 mmol/L Normal 22.0-30.0 [facility] Comment on above: Performed By: #### C VDTBH #### [facility] [address] [address] [address] Jessica Gonzalez Creatinine [Mass/Vol] 0.81 mg/dL Normal 0.52-1.04 [facility] Comment on above: Performed By: #### C VDTBH #### [facility] [address] [address] [address] Jessica Gonzalez EGFR-AF MAURITANIAN >60 Normal >=60 [facility] Comment on above: Performed By: #### C VDTBH #### [facility] [address] [address] [address] Jessica Gonzalez EGFR-NON AF MAURITANIAN >60 Normal >=60 [facility] Comment on above: Performed By: #### C VDTBH #### [facility] [address] [address] [address] Jessica Gonzalez Glucose [Mass/Vol] 167 mg/dL Critically high 74-106 [facility] Comment on above: Performed By: #### C VDTBH #### [facility] [address] [place] [address] Dr. Jessica Gonzalez Potassium [Moles/Vol] 3.8 mmol/L Normal 3.4-5.0 [facility] Comment on above: Performed By: #### C VDTBH #### [facility] [address] [address] [address] Jessica Gonzalez Sodium [Moles/Vol] 140 mmol/L Normal 137-145 [facility] Comment on above: Performed By: #### C VDTBH #### [facility] [address] [address] [address] Jessica Gonzalez Urea nitrogen [Mass/Vol] 19.0 mg/dL Critically high 7.0-17.0 [facility] Comment on above: Performed By: #### C VDTBH #### [facility] [address] [address] [address] Jessica Gonzalez Urea nitrogen/Creatinine [Mass ratio] 23.5 mg/mg Normal [facility] Comment on above: Performed By: #### C VDTBH #### [facility] [address] [address] [address] Jessica Gnozalez XR CHEST 2 Von 06-13-2021 XR CHEST 2 V EXAM: XR CHEST 2 V HISTORY: Organized pneumonia COMPARISON: 06/10/2021 TECHNIQUE: PA and lateral FINDINGS: LUNGS: Interval improvement of right upper lobe pneumonia. The left lung is clear. VASCULATURE: No increased pulmonary vasculature. PLEURA: No pneumothorax, effusion, or pleural thickening. CARDIAC: No cardiomegaly or cardiac silhouette abnormality. MEDIASTINUM: No visible mass or adenopathy. BONES: No fracture or visible bone lesion. OTHER: Negative. IMPRESSION: Interval improvement of right upper lobe pneumonia Electronically authenticated by: CALI BRITO Date: 2021-06-13 07:00 Normal The [facility] CBC W MANUAL DIFFon 06-12-19 22 ATYPICAL LYMPH # Normal [facility] Comment on above: Performed By: #### C VDTBH #### [facility] [address] [place] [address] Dr. Jessica Gonzalez ATYPICAL LYMPH % Normal [facility] Comment on above: Performed By: #### C VDTBH #### [facility] [address] [place] [address] Dr. Jessica Gonzalez BAND # 1.3 103/ul Critically high 0.0-0.3 [facility] Comment on above: Performed By: #### C VDTBH #### [facility] [address] [place] [address] Dr. Jessica Gonzalez BAND % 8 % Critically high 0-5 [facility] Comment on above: Performed By: #### C VDTBH #### [facility] [address] [place] [address] Dr. Jessica Gonzalez BASOM # 0.00 103/ul Normal 0.00-0.10 [facility] Comment on above: Performed By: #### C VDTBH #### [facility] [address] [place] [address] Dr. Jessica Gonzalez BASOM % 0.0 % Critically low 0.2-2.0 The [facility] Comment on above: Performed By: #### C VDTBH #### [facility] [address] [place] [address] Dr. Jesscia Gonzalez BLAST # Normal [facility] Comment on above: Performed By: #### C VDTBH #### [facility] [address] [place] [address] Dr. Jessica Gonzalez BLAST % Normal [facility] Comment on above: Performed By: #### C VDTBH #### [facility] [address] [place] [address] Dr. Jessica Gonzalez CORRECTED WBC Normal 4.0-11.0 [facility] Comment on above: Performed By: #### C VDTBH #### [facility] [address] [place] [address] Dr. Jessica Gonzalez EOS # 0.00 103/ul Normal 0.00-0.70 [facility] Comment on above: Performed By: #### C VDTBH #### [facility] [address] [place] [address] Dr. Jessica Gonzalez EOS% 0.0 % Critically low 0.9-7.0 [facility] Comment on above: Performed By: #### C VDTBH #### [facility] [address] [place] [address] Dr. Jessica Gonzalez HCT 35.4 % Critically low 36.0-48.0 [facility] Comment on above: Performed By: #### C VDTBH #### [facility] [address] [place] [address] Dr. Jessica Gonzalez HGB 11.9 g/dl Critically low 12.0-16.0 [facility] Comment on above: Performed By: #### C VDTBH #### [facility] [address] [place] [address] Dr. Jessica Gonzalez LYMPHM # 0.63 103/ul Critically low 1.20-3.80 [facility] Comment on above: Performed By: #### C VDTBH #### [facility] [address] [place] [address] Dr. Jessica Gonzalez LYMPHM% 4.0 % Critically low 20.5-60.0 [facility] Comment on above: Performed By: #### C VDTBH #### [facility] [address] [place] [address] Dr. Jessica Gonzalez MCH 33.3 pg Normal 26.7-34.0 [facility] Comment on above: Performed By: #### C VDTBH #### [facility] [address] [place] [address] Dr. Jessica Gonzalez MCHC 33.6 g/dl Normal 29.9-35.2 [facility] Comment on above: Performed By: #### C VDTBH #### [facility] [address] [address] [address] Jessica Gonzalez MCV 99.2 fL Critically high 81.0-99.0 [facility] Comment on above: Performed By: #### C VDTBH #### [facility] [address] [place] [address] Dr. Jessica Gonzalez METAMYELOCYTE # Normal [facility] Comment on above: Performed By: #### C VDTBH #### [facility] [address] [place] [address] Dr. Jessica Gonzalez METAMYELOCYTE % Normal [facility] Comment on above: Performed By: #### C VDTBH #### [facility] [address] [place] [address] Dr. Jessica Gonzalze MONOM# 0.79 103/ul Normal 0.30-0.80 [facility] Comment on above: Performed By: #### C VDTBH #### [facility] [address] [place] [address] Dr. Jessica Gonzalez MONOM% 5.0 % Normal 1.7-12.0 [facility] Comment on above: Performed By: #### C VDTBH #### [facility] [address] [place] [address] Dr. Jessica Gonzalez MPV 9.4 fL Critically low 9.5-13.5 [facility] Comment on above: Performed By: #### C VDTBH #### [facility] [address] [place] [address] Dr. Jessica Gonzalez MYELOCYTE # Normal [facility] Comment on above: Performed By: #### C VDTBH #### [facility] [address] [address] [address] Jessica Gonzalez MYELOCYTE % Normal [facility] Comment on above: Performed By: #### C VDTBH #### [facility] [address] [id number] Jessica Gonzalez NRBC Normal [facility] Comment on above: Performed By: #### C VDTBH #### [facility] [address] [address] [address] Jessica Gonzalez PLT 241 103/ul Normal 150-450 [facility] Comment on above: Performed By: #### C VDTBH #### [facility] [address] [address] [address] Jessica Gonzalez RBC 3.57 106/ul Critically low 4.20-5.40 [facility] Comment on above: Performed By: #### C VDTBH #### [facility] [address] [address] [address] Jessica Gonzalez RDW 13.5 % Normal 11.0-15.0 [facility] Comment on above: Performed By: #### C VDTBH #### [facility] [address] [address] [address] Jessica Gonzalez SEG # 13.11 103/ul Critically high 1.40-6.50 [facility] Comment on above: Performed By: #### C VDTBH #### [facility] [address] [address] [address] Jessica Gonzalez SEG % 83.0 % Critically high 43.0-75.0 [facility] Comment on above: Performed By: #### C VDTBH #### [facility] [address] [address] [address] Jessica Gonzalez WBC 15.8 103/ul Critically high 4.0-11.0 [facility] Comment on above: Performed By: #### C VDTBH #### [facility] [address] [address] [address] Jessica Gonzalez PROF CHEM 8 (BAS METB)on Anion gap [Moles/Vol] 12.6 mmol/L Normal [facility] Comment on above: Performed By: #### B MP #### [facility] [address] [address] [address] Jessica Gonzalez Calcium [Mass/Vol] 8.9 mg/dL Normal 8.4-10.2 [facility] Comment on above: Performed By: #### B MP #### [facility] [address] [address] [address] Jessica Gonzalez Chloride [Moles/Vol] 106 mmol/L Normal 98-107 [facility] Comment on above: Performed By: #### B MP #### [facility] [address] [address] [address] Jessica Gonzalez CO2 [Moles/Vol] 26.0 mmol/L Normal 22.0-30.0 [facility] Comment on above: Performed By: #### B MP #### [facility] [address] [address] [address] Jessica Gonzalez Creatinine [Mass/Vol] 0.72 mg/dL Normal 0.52-1.04 [facility] Comment on above: Performed By: #### B MP #### [facility] [address] [address] [address] Jessica Gonzalez EGFR-AF MAURITANIAN >60 Normal >=60 [facility] Comment on above: Performed By: #### B MP #### [facility] [address] [address] [address] Jessica Gonzalez EGFR-NON AF MAURITANIAN >60 Normal >=60 [facility] Comment on above: Performed By: #### B MP #### [facility] [address] [address] [address] Jessica Gonzalez Glucose [Mass/Vol] 132 mg/dL Critically high 74-106 [facility] Comment on above: Performed By: #### B MP #### [facility] [address] [address] [address] Jessica Gonzalez Potassium [Moles/Vol] 3.6 mmol/L Normal 3.4-5.0 [facility] Comment on above: Performed By: #### B MP #### [facility] [address] [place] [address] Dr. Jessica Gonzalez Sodium [Moles/Vol] 141 mmol/L Normal 137-145 [facility] Comment on above: Performed By: #### B MP #### [facility] [address] [place] [address] Dr. Jessica Gonzalez Urea nitrogen [Mass/Vol] 21.0 mg/dL Critically high 7.0-17.0 [facility] Comment on above: Performed By: #### B MP #### [facility] [address] [place] [address] Dr. Jessica Gonzalez Urea nitrogen/Creatinine [Mass ratio] 29.2 mg/mg Normal [facility] Comment on above: Performed By: #### B MP #### [facility] [address] [place] [address] Dr. Jessica Gonzalez CBC AUTO DIFFon 06-11-2021 BASO # 0.0 103/ul Normal 0.0-0.1 [facility] Comment on above: Performed By: #### C VDTBH #### [facility] [address] [place] [address] Dr. Jessica Gonzalez Basophils/100 WBC (Bld) 0.1 % Critically low 0.2-2.0 [facility] Comment on above: Performed By: #### C VDTBH #### [facility] [address] [place] [address] Dr. Jessica Gonzalez EO # 0.0 103/ul Normal 0.0-0.7 [facility] Comment on above: Performed By: #### C VDTBH #### [facility] [address] [place] [address] Dr. Jessica Gonzalez Eosinophils/100 WBC (Bld) 0.1 % Critically low 0.9-7.0 [facility] Comment on above: Performed By: #### C VDTBH #### [facility] [address] [place] [address] Dr. Jessica Gonzalez Erythrocyte distribution width (RBC) [Ratio] 13.2 % Normal 11.0-15.0 [facility] Comment on above: Performed By: #### C VDTBH #### [facility] [address] [address] [address] Jessica Gonzalez Hematocrit (Bld) [Volume fraction] 36.3 % Normal 36.0-48.0 [facility] Comment on above: Performed By: #### C VDTBH #### [facility] [address] [place] [address] Dr. Jessica Gonzalez Hemoglobin (Bld) [Mass/Vol] 12.1 g/dL Normal 12.0-16.0 [facility] Comment on above: Performed By: #### C VDTBH #### [facility] [address] [place] [address] Dr. Jessica Gonzalez IG # 1.99 10e3/ul Critically high 0.00-0.03 [facility] Comment on above: Performed By: #### C VDTBH #### [facility] [address] [place] [address] Dr. Jessica Gonzalez IG % 11.1 % Critically high 0.0-0.5 [facility] Comment on above: Performed By: #### C VDTBH #### [facility] [address] [place] [address] Dr. Jessica Gonzalez LYMPH # 1.1 103/ul Critically low 1.2-3.8 [facility] Comment on above: Performed By: #### C VDTBH #### [facility] [address] [place] [address] Dr. Jessica Gonzalez Lymphocytes/100 WBC (Bld) 6.1 % Critically low 20.5-60.0 [facility] Comment on above: Performed By: #### C VDTBH #### [facility] [address] [place] [address] Dr. Jessica Gonzalez MANUAL DIFF REQ NO Normal [facility] Comment on above: Performed By: #### C VDTBH #### [facility] [address] [place] [address] Dr. Jessica Gonzalez MCH (RBC) [Entitic mass] 33.0 pg Normal 26.7-34.0 [facility] Comment on above: Performed By: #### C VDTBH #### [facility] [address] [place] [address] Dr. Jessica Gonzalez MCHC (RBC) [Mass/Vol] 33.3 g/dL Normal 29.9-35.2 [facility] Comment on above: Performed By: #### C VDTBH #### [facility] [address] [place] [address] Dr. Jessica Gonzalez MCV (RBC) [Entitic vol] 98.9 fL Normal 81.0-99.0 [facility] Comment on above: Performed By: #### C VDTBH #### [facility] [address] [place] [address] Dr. Jessica Gonzalez MONO # 0.5 103/ul Normal 0.3-0.8 [facility] Comment on above: Performed By: #### C VDTBH #### [facility] [address] [place] [address] Dr. Jessica Gonzalez Monocytes/100 WBC (Bld) 2.8 % Normal 1.7-12.0 [facility] Comment on above: Performed By: #### C VDTBH #### [facility] [address] [place] [address] Dr. Jessica Gonzalez NEUT # 14.3 103/ul Critically high 1.4-6.5 [facility] Comment on above: Performed By: #### C VDTBH #### [facility] [address] [place] [address] Dr. Jessica Gonzalez Neutrophils/100 WBC (Bld) 79.8 % Critically high 43.0-75.0 [facility] Comment on above: Performed By: #### C VDTBH #### [facility] [address] [place] [address] Dr. Jessica Gonzalez Platelet mean volume (Bld) [Entitic vol] 9.6 fL Normal 9.5-13.5 [facility] Comment on above: Performed By: #### C VDTBH #### [facility] [address] [place] [address] Dr. Jessica Gonzalez PLT 237 103/ul Normal 150-450 [facility] Comment on above: Performed By: #### C VDTBH #### [facility] [address] [place] [address] Dr. Jessica Gonzalez RBC 3.67 106/ul Critically low 4.20-5.40 [facility] Comment on above: Performed By: #### C VDTBH #### [facility] [address] [place] [address] Dr. Jessica Gonzalez WBC 18.0 103/ul Critically high 4.0-11.0 [facility] Comment on above: Performed By: #### C VDTBH #### [facility] [address] [place] [address] Dr. Jessica Gonzalez CULTURE SPUTUMon 06-11-2021 CULTURE SPUTUM Culture Observations : Normal respiratory eugenio also seen. Isolate 1 Staphylococcus aureus Moderate growth of ORGANISM 1 Staphylococcus aureus ANTIBIOTIC M.I.C RX STATUS Beta-Lactamase Pos POS F Cefoxitin Screen Neg NEG F Benzylpenicillin >=0.5 R F Gentamicin <=0.5 S F Ciprofloxacin 4 R F Levofloxacin 4 I F Moxifloxacin 1 S F Inducible Clindamycin Resistance Neg NEG F Erythromycin >=8 R F Clindamycin <=0.25 S F Quinupristin/Dalfopri stin <=0.25 S F Linezolid 1 S F Vancomycin <=0.5 S F Tetracycline <=1 S F Rifampicin <=0.5 S F Trimethoprim/Sulfamet hoxazole <=10 S F Oxacillin <=0.25 S F Normal [facility] Comment on above: Performed By: #### B MP #### [facility] [address] [place] [address] [id number] [address] Jessica Gonzalez PROF CHEM 8 (BAS METB)on Anion gap [Moles/Vol] 12.5 mmol/L Normal [facility] Comment on above: Performed By: #### B MP #### [facility] [address] [place] [address] Dr. Jessica Gonzalez Calcium [Mass/Vol] 9.2 mg/dL Normal 8.4-10.2 [facility] Comment on above: Performed By: #### B MP #### [facility] [address] [address] [address] Jessica Gonzalez Chloride [Moles/Vol] 107 mmol/L Normal 98-107 [facility] Comment on above: Performed By: #### B MP #### [facility] [address] [address] [address] Jessica Gonzalez CO2 [Moles/Vol] 25.3 mmol/L Normal 22.0-30.0 [facility] Comment on above: Performed By: #### B MP #### [facility] [address] [address] [address] Jessica Gonzalez Creatinine [Mass/Vol] 0.77 mg/dL Normal 0.52-1.04 [facility] Comment on above: Performed By: #### B MP #### [facility] [address] [address] [address] Jessica Gonzalez EGFR-AF MAURITANIAN >60 Normal >=60 [facility] Comment on above: Performed By: #### B MP #### [facility] [address] [address] [address] Jessica Gonzalez EGFR-NON AF MAURITANIAN >60 Normal >=60 [facility] Comment on above: Performed By: #### B MP #### [facility] [address] [address] [address] Jessica Gonzalez Glucose [Mass/Vol] 163 mg/dL Critically high 74-106 [facility] Comment on above: Performed By: #### B MP #### [facility] [address] [address] [address] Jessica Gonzalez Potassium [Moles/Vol] 3.8 mmol/L Normal 3.4-5.0 [facility] Comment on above: Performed By: #### B MP #### [facility] [address] [place] [address] Dr. Jessica Gonzalez Sodium [Moles/Vol] 141 mmol/L Normal 137-145 [facility] Comment on above: Performed By: #### B MP #### [facility] [address] [address] [address] Jessica Gonzalez Urea nitrogen [Mass/Vol] 19.0 mg/dL Critically high 7.0-17.0 [facility] Comment on above: Performed By: #### B MP #### [facility] [address] [place] [address] Dr. Jessica Gonzalez Urea nitrogen/Creatinine [Mass ratio] 24.7 mg/mg Normal [facility] Comment on above: Performed By: #### B MP #### [facility] [address] [place] [address] Dr. Jessica Gonzalez VANCOMYCIN TROUGHon 06-11-19 22 VANCOMYCIN TROUGH 9.1 ug/ml Normal 5.0-20.0 [facility] Comment on above: Performed By: #### V ANCT #### [facility] [address] [place] [address] Dr. Jessica Gonzalez CBC W MANUAL DIFFon 06-10-19 22 ATYPICAL LYMPH # Normal [facility] Comment on above: Performed By: #### B MP #### [facility] [address] [place] [address] Dr. Jessica Gonzalez ATYPICAL LYMPH % Normal [facility] Comment on above: Performed By: #### B MP #### [facility] [address] [place] [address] Dr. Jessica Gonzalez BAND # 1.2 103/ul Critically high 0.0-0.3 [facility] Comment on above: Performed By: #### B MP #### [facility] [address] [place] [address] Dr. Jessica Gonzalez BAND % 6 % Critically high 0-5 [facility] Comment on above: Performed By: #### B MP #### [facility] [address] [place] [address] Dr. Jessica Gonzalez BASOM # 0.00 103/ul Normal 0.00-0.10 [facility] Comment on above: Performed By: #### B MP #### [facility] [address] [place] [address] Dr. Jessica Gonzalez BASOM % 0.0 % Critically low 0.2-2.0 [facility] Comment on above: Performed By: #### B MP #### [facility] [address] [address] [address] Jessica Gonzalez BLAST # Normal [facility] Comment on above: Performed By: #### B MP #### [facility] [address] [address] [address] Jessica Gonzalez BLAST % Normal [facility] Comment on above: Performed By: #### B MP #### [facility] [address] [place] [address] Dr. Jessica Gonzalez CORRECTED WBC Normal 4.0-11.0 [facility] Comment on above: Performed By: #### B MP #### [facility] [address] [place] [address] Dr. Jessica Gonzalez EOS # 0.00 103/ul Normal 0.00-0.70 [facility] Comment on above: Performed By: #### B MP #### [facility] [address] [place] [address] Dr. Jessica Gonzalez EOS% 0.0 % Critically low 0.9-7.0 [facility] Comment on above: Performed By: #### B MP #### [facility] [address] [place] [address] Dr. Jessica Gonzalez HCT 34.2 % Critically low 36.0-48.0 [facility] Comment on above: Performed By: #### B MP #### [facility] [address] [place] [address] Dr. Jessica Gonzalez HGB 11.6 g/dl Critically low 12.0-16.0 [facility] Comment on above: Performed By: #### B MP #### [facility] [address] [place] [address] Dr. Jessica Gonzalez LYMPHM # 0.60 103/ul Critically low 1.20-3.80 [facility] Comment on above: Performed By: #### B MP #### [facility] [address] [place] [address] Dr. Jessica Gonzalez LYMPHM% 3.0 % Critically low 20.5-60.0 [facility] Comment on above: Performed By: #### B MP #### [facility] [address] [place] [address] Dr. Jessica Gonzalez MCH 33.5 pg Normal 26.7-34.0 [facility] Comment on above: Performed By: #### B MP #### [facility] [address] [place] [address] Dr. Jessica Gonzalez MCHC 33.9 g/dl Normal 29.9-35.2 [facility] Comment on above: Performed By: #### B MP #### [facility] [address] [place] [address] Dr. Jessica Gonzalez MCV 98.8 fL Normal 81.0-99.0 [facility] Comment on above: Performed By: #### B MP #### [facility] [address] [place] [address] Dr. Jessica Gonzalez METAMYELOCYTE # 0.2 103/ul Normal [facility] Comment on above: Performed By: #### B MP #### [facility] [address] [place] [address] Dr. Jessica Gonzalez METAMYELOCYTE % 1 % Normal [facility] Comment on above: Performed By: #### B MP #### [facility] [address] [place] [address] Dr. Jessica Gonzalez MONOM# 0.60 103/ul Normal 0.30-0.80 [facility] Comment on above: Performed By: #### B MP #### [facility] [address] [place] [address] Dr. Jessica Gonzalez MONOM% 3.0 % Normal 1.7-12.0 [facility] Comment on above: Performed By: #### B MP #### [facility] [address] [place] [address] Dr. Jessica Gonzalez MPV 9.7 fL Normal 9.5-13.5 [facility] Comment on above: Performed By: #### B MP #### [facility] [address] [place] [address] Dr. Jessica Gonzalez MYELOCYTE # Normal [facility] Comment on above: Performed By: #### B MP #### [facility] [address] [address] [address] Jessica Gonzalez MYELOCYTE % Normal [facility] Comment on above: Performed By: #### B MP #### [facility] [address] [address] [address] Jessica Gonzalez NRBC Normal [facility] Comment on above: Performed By: #### B MP #### [facility] [address] [address] [address] Jessica Gonzalez PLT 233 103/ul Normal 150-450 [facility] Comment on above: Performed By: #### B MP #### [facility] [address] [address] [address] Jessica Gonzalez RBC 3.46 106/ul Critically low 4.20-5.40 [facility] Comment on above: Performed By: #### B MP #### [facility] [address] [address] [address] Jessica Gonzalez RDW 13.1 % Normal 11.0-15.0 [facility] Comment on above: Performed By: #### B MP #### [facility] [address] [address] [address] Jessica Gonzalez SEG # 17.31 103/ul Critically high 1.40-6.50 [facility] Comment on above: Performed By: #### B MP #### [facility] [address] [address] [address] Jessica Gonzalez SEG % 87.0 % Critically high 43.0-75.0 [facility] Comment on above: Performed By: #### B MP #### [facility] [id number] Jessica Gonzalez WBC 19.9 103/ul Critically high 4.0-11.0 [facility] Comment on above: Performed By: #### B MP #### [facility] [address] [address] [address] Jessica Gonzalez PROF CHEM 8 (BAS METB)on Anion gap [Moles/Vol] 11.7 mmol/L Normal [facility] Comment on above: Performed By: #### C VDTBH #### [facility] [address] [place] [address] Dr. Jessica Gonzalez Calcium [Mass/Vol] 9.5 mg/dL Normal 8.4-10.2 [facility] Comment on above: Performed By: #### C VDTBH #### [facility] [address] [place] [address] Dr. Jessica Gonzalez Chloride [Moles/Vol] 104 mmol/L Normal 98-107 [facility] Comment on above: Performed By: #### C VDTBH #### [facility] [address] [place] [address] Dr. Jessica Gonzalez CO2 [Moles/Vol] 27.0 mmol/L Normal 22.0-30.0 [facility] Comment on above: Performed By: #### C VDTBH #### [facility] [address] [place] [address] Dr. Jessica Gonzalez Creatinine [Mass/Vol] 0.69 mg/dL Normal 0.52-1.04 [facility] Comment on above: Performed By: #### C VDTBH #### [facility] [address] [place] [address] Dr. Jessica Gonzalez EGFR-AF MAURITANIAN >60 Normal >=60 [facility] Comment on above: Performed By: #### C VDTBH #### [facility] [address] [place] [address] Dr. Jessica Gonzalez EGFR-NON AF MAURITANIAN >60 Normal >=60 [facility] Comment on above: Performed By: #### C VDTBH #### [facility] [address] [place] [address] Dr. Jessica Gonzalez Glucose [Mass/Vol] 163 mg/dL Critically high 74-106 [facility] Comment on above: Performed By: #### C VDTBH #### [facility] [address] [place] [address] Dr. Jessica Gonzalez Potassium [Moles/Vol] 3.7 mmol/L Normal 3.4-5.0 [facility] Comment on above: Performed By: #### C VDTBH #### [facility] [address] [place] [address] Dr. Jessica Gonzalez Sodium [Moles/Vol] 139 mmol/L Normal 137-145 [facility] Comment on above: Performed By: #### C VDTBH #### [facility] [address] [place] [address] Dr. Jessica Gonzalez Urea nitrogen [Mass/Vol] 20.0 mg/dL Critically high 7.0-17.0 [facility] Comment on above: Performed By: #### C VDTBH #### [facility] [address] [place] [address] Dr. Jessica Gonzalez Urea nitrogen/Creatinine [Mass ratio] 29.0 mg/mg Normal [facility] Comment on above: Performed By: #### C VDTBH #### [facility] [address] [place] [address] Dr. Jessica Gonzalez XR CHEST 2 Von 06-10-2021 XR CHEST 2 V EXAM: XR CHEST 2 V HISTORY: SHORTNESS OF BREATH COMPARISON: 06/08/2021 TECHNIQUE: PA and lateral FINDINGS: LUNGS: Moderate right upper lobe infiltrate, stable from the prior exam. The left lung is clear. VASCULATURE: No increased pulmonary vasculature. PLEURA: No pneumothorax, effusion, or pleural thickening. CARDIAC: No cardiomegaly or cardiac silhouette abnormality. MEDIASTINUM: No visible mass or adenopathy. BONES: No fracture or visible bone lesion. OTHER: Negative. IMPRESSION: Stable right upper lobe pneumonia Electronically authenticated by: CALI BRITO Date: 2021-06-10 07:02 Normal The [facility] AUTO DIFFon 06-09-2021 BASO # 0.1 103/ul Normal 0.0-0.1 [facility] Comment on above: Performed By: #### C BC #### [facility] [address] [place] [address] Dr. Jessica Gonzalez Basophils/100 WBC (Bld) 0.4 % Normal 0.2-2.0 [facility] Comment on above: Performed By: #### C BC #### [facility] [address] [place] [address] Dr. Jessica Gonzalez EO # 0.0 103/ul Normal 0.0-0.7 [facility] Comment on above: Performed By: #### C BC #### [facility] [address] [place] [address] Dr. Jessica Gonzalez Eosinophils/100 WBC (Bld) 0.0 % Critically low 0.9-7.0 [facility] Comment on above: Performed By: #### C BC #### [facility] [address] [place] [address] Dr. Jessica Gonzalez Erythrocyte distribution width (RBC) [Ratio] 12.8 % Normal 11.0-15.0 [facility] Comment on above: Performed By: #### C BC #### [facility] [address] [place] [address] Dr. Jessica Gonzalez Hematocrit (Bld) [Volume fraction] 37.2 % Normal 36.0-48.0 [facility] Comment on above: Performed By: #### C BC #### [facility] [address] [place] [address] Dr. Jessica Gonzalez Hemoglobin (Bld) [Mass/Vol] 12.6 g/dL Normal 12.0-16.0 [facility] Comment on above: Performed By: #### C BC #### [facility] [address] [place] [address] Dr. Jessica Gonzalez IG # 0.22 10e3/ul Critically high 0.00-0.03 [facility] Comment on above: Performed By: #### C BC #### [facility] [address] [place] [address] Dr. Jessica Gonzalez IG % 1.2 % Critically high 0.0-0.5 [facility] Comment on above: Performed By: #### C BC #### [facility] [address] [place] [address] Dr. Jessica Gonzalez LYMPH # 0.8 103/ul Critically low 1.2-3.8 [facility] Comment on above: Performed By: #### C BC #### [facility] [address] [address] [address] Jessica Gonzalez Lymphocytes/100 WBC (Bld) 4.2 % Critically low 20.5-60.0 [facility] Comment on above: Performed By: #### C BC #### [facility] [address] [address] [address] Jessica Gonzalez MANUAL DIFF REQ NO Normal [facility] Comment on above: Performed By: #### C BC #### [facility] [address] [address] [address] Jessica Gonzalez MCH (RBC) [Entitic mass] 33.4 pg Normal 26.7-34.0 [facility] Comment on above: Performed By: #### C BC #### [facility] [address] [place] [address] Dr. Jessica Gonzalez MCHC (RBC) [Mass/Vol] 33.9 g/dL Normal 29.9-35.2 [facility] Comment on above: Performed By: #### C BC #### [facility] [address] [place] [address] Dr. Jessica Gonzalez MCV (RBC) [Entitic vol] 98.7 fL Normal 81.0-99.0 [facility] Comment on above: Performed By: #### C BC #### [facility] [address] [place] [address] Dr. Jessica Gonzalez MONO # 0.4 103/ul Normal 0.3-0.8 [facility] Comment on above: Performed By: #### C BC #### [facility] [address] [place] [address] Dr. Jessica Gonzalez Monocytes/100 WBC (Bld) 2.3 % Normal 1.7-12.0 [facility] Comment on above: Performed By: #### C BC #### [facility] [address] [place] [address] Dr. Jessica Gonzalez NEUT # 17.0 103/ul Critically high 1.4-6.5 [facility] Comment on above: Performed By: #### C BC #### [facility] [address] [address] [address] Jessica Gonzalez Neutrophils/100 WBC (Bld) 91.9 % Critically high 43.0-75.0 [facility] Comment on above: Performed By: #### C BC #### [facility] [address] [address] [address] Jessica Gonzalez Platelet mean volume (Bld) [Entitic vol] 9.9 fL Normal 9.5-13.5 [facility] Comment on above: Performed By: #### C BC #### [facility] [address] [address] [address] Jessica Gonzalez PLT 247 103/ul Normal 150-450 [facility] Comment on above: Performed By: #### C BC #### [facility] [address] [place] [address] Dr. Jessica Gonzalez RBC 3.77 106/ul Critically low 4.20-5.40 [facility] Comment on above: Performed By: #### C BC #### [facility] [address] [address] [address] Jessica Gonzalez WBC 18.5 103/ul Critically high 4.0-11.0 [facility] Comment on above: Performed By: #### C BC #### [facility] [address] [place] [address] Dr. Jessica Gonzalez PROF CHEM 8 (BAS METB)on Anion gap [Moles/Vol] 15.3 mmol/L Normal [facility] Comment on above: Performed By: #### C VDTBH #### [facility] [address] [place] [address] Dr. Jessica Gonzalez Calcium [Mass/Vol] 9.8 mg/dL Normal 8.4-10.2 [facility] Comment on above: Performed By: #### C VDTBH #### [facility] [address] [place] [address] Dr. Jessica Gonzalez Chloride [Moles/Vol] 102 mmol/L Normal 98-107 [facility] Comment on above: Performed By: #### C VDTBH #### [facility] [address] [address] [address] Jessica Gonzalez CO2 [Moles/Vol] 24.1 mmol/L Normal 22.0-30.0 [facility] Comment on above: Performed By: #### C VDTBH #### [facility] [address] [address] [address] Jessica Gonzalez Creatinine [Mass/Vol] 0.83 mg/dL Normal 0.52-1.04 [facility] Comment on above: Performed By: #### C VDTBH #### [facility] [address] [address] [address] Jessica Gonzalez EGFR-AF MAURITANIAN >60 Normal >=60 [facility] Comment on above: Performed By: #### C VDTBH #### [facility] [address] [place] [address] Dr. Jessica Gonzalez EGFR-NON AF MAURITANIAN >60 Normal >=60 [facility] Comment on above: Performed By: #### C VDTBH #### [facility] [address] [place] [address] Dr. Jessica Gonzalez Glucose [Mass/Vol] 165 mg/dL Critically high 74-106 [facility] Comment on above: Performed By: #### C VDTBH #### [facility] [address] [place] [address] Dr. Jessica Gonzalez Potassium [Moles/Vol] 3.4 mmol/L Normal 3.4-5.0 [facility] Comment on above: Performed By: #### C VDTBH #### [facility] [address] [place] [address] Dr. Jessica Gonzalez Sodium [Moles/Vol] 138 mmol/L Normal 137-145 [facility] Comment on above: Performed By: #### C VDTBH #### [facility] [address] [place] [address] Dr. Jessica Gonzalez Urea nitrogen [Mass/Vol] 21.0 mg/dL Critically high 7.0-17.0 [facility] Comment on above: Performed By: #### C VDTBH #### [facility] [address] [place] [address] Dr. Jessica Gonzalez Urea nitrogen/Creatinine [Mass ratio] 25.3 mg/mg Normal [facility] Comment on above: Performed By: #### C VDTB #### [facility] [address] [place] [address] Dr. Jessica Gonzalez RESPIRATORY PANEL PLUSon Adenovirus Not detected Normal NOT DETECTED [facility] Comment on above: Performed By: #### S PUTGS #### [facility] [address] [place] [address] Dr. Jessica Jack. Parapertusis Not detected Normal NOT DETECTED [facility] Comment on above: Performed By: #### S PUTGS #### [facility] [address] [place] [address] Dr. Jessica Jack. Pertussis Not detected Normal NOT DETECTED [facility] Comment on above: Performed By: #### S PUTGS #### [facility] [address] [place] [address] Dr. Jessica Gonzalez Chlamydia Pneumoniae Not detected Normal NOT DETECTED [facility] Comment on above: Performed By: #### S PUTGS #### [facility] [address] [place] [address] Dr. Jessica Gonzalez Coronavirus 229E Not detected Normal NOT DETECTED The [facility] Comment on above: Performed By: #### S PUTGS #### [facility] [address] [place] [address] Dr. Jessica Gonzalez Coronavirus HKU1 Not detected Normal NOT DETECTED The [facility] Comment on above: Performed By: #### S PUTGS #### [facility] [address] [place] [address] Dr. Jessica Gonzalez Coronavirus NL63 Not detected Normal NOT DETECTED The [facility] Comment on above: Performed By: #### S PUTGS #### [facility] [address] [place] [address] Dr. Jessica Gonzalez Coronavirus OC43 Not detected Normal NOT DETECTED The [facility] Comment on above: Performed By: #### S PUTGS #### [facility] [address] [address] [address] Jessica Gonzalez Influenza A H1 2009 Not detected Normal NOT DETECTED [facility] Comment on above: Performed By: #### S PUTGS #### [facility] [address] [address] [address] Jessica Gonzalez Influenza A H3 Not detected Normal NOT DETECTED [facility] Comment on above: Performed By: #### S PUTGS #### [facility] [address] [address] [address] Jessica Gonzalez Influenza B Not detected Normal NOT DETECTED [facility] Comment on above: Performed By: #### S PUTGS #### [facility] [address] [place] [address] Dr. Jessica Gonzalez Metapneumovirus Not detected Normal NOT DETECTED [facility] Comment on above: Performed By: #### S PUTGS #### [facility] [address] [place] [address] Dr. Jessica Gonzalez Mycoplas. Pneumoniae Not detected Normal NOT DETECTED [facility] Comment on above: Performed By: #### S PUTGS #### [facility] [address] [place] [address] Dr. Jessica Gonzalez Parainfluenza 1 Not detected Normal NOT DETECTED [facility] Comment on above: Performed By: #### S PUTGS #### [facility] [address] [place] [address] Dr. Jessica Gonzalez Parainfluenza 2 Not detected Normal NOT DETECTED [facility] Comment on above: Performed By: #### S PUTGS #### [facility] [address] [place] [address] Dr. Jessica Gonzalez Parainfluenza 3 Not detected Normal NOT DETECTED [facility] Comment on above: Performed By: #### S PUTGS #### [facility] [address] [place] [address] Dr. Jessica Gonzalez Parainfluenza 4 Not detected Normal NOT DETECTED [facility] Comment on above: Performed By: #### S PUTGS #### [facility] [address] [place] [address] Dr. Jessica Gonzalez Rhino/Enterovirus Not detected Normal NOT DETECTED The [facility] Comment on above: Performed By: #### S PUTGS #### [facility] [address] [place] [address] Dr. Jessica Gonzalez RP2 Header 1 RESPIRATORY PANEL: VIRUSES Normal [facility] Comment on above: Performed By: #### S PUTGS #### [facility] [address] [place] [address] Dr. Jessica Gonzalez RP2 Header 2 RESPIRATORY PANEL: BACTERIA Normal [facility] Comment on above: Performed By: #### S PUTGS #### [facility] [address] [place] [address] Dr. Jessica Gonzalez RSV Not detected Normal NOT DETECTED [facility] Comment on above: Performed By: #### S PUTGS #### [facility] [address] [place] [address] Dr. Jessica Gonzalez SARS-CoV-2 (COVID-19) RNA MASON+probe Ql (Unsp spec) Not detected Normal NOT DETECTED The [facility] Comment on above: Performed By: #### S PUTGS #### [facility] [address] [place] [address] Dr. Jessica Gonzalez CBC W MANUAL DIFFon 06-08-19 22 ATYPICAL LYMPH # Normal [facility] Comment on above: Performed By: #### C VDTBH #### [facility] [address] [place] [address] Dr. Jessica Gonzalez ATYPICAL LYMPH % Normal [facility] Comment on above: Performed By: #### C VDTBH #### [facility] [address] [place] [address] Dr. Jessica Gonzalez BAND # 1.2 103/ul Critically high 0.0-0.3 [facility] Comment on above: Performed By: #### C VDTBH #### [facility] [address] [place] [address] Dr. Jessica Gonzalez BAND % 7 % Critically high 0-5 [facility] Comment on above: Performed By: #### C VDTBH #### [facility] [address] [place] [address] Dr. Jessica Gonzalez BASOM # 0.00 103/ul Normal 0.00-0.10 [facility] Comment on above: Performed By: #### C VDTBH #### [facility] [address] [place] [address] Dr. Jessica Gonzalez BASOM % 0.0 % Critically low 0.2-2.0 [facility] Comment on above: Performed By: #### C VDTBH #### [facility] [address] [place] [address] Dr. Jessica Gonzalez BLAST # Normal [facility] Comment on above: Performed By: #### C VDTBH #### [facility] [address] [place] [address] Dr. Jessica Gonzalez BLAST % Normal [facility] Comment on above: Performed By: #### C VDTBH #### [facility] [address] [place] [address] Dr. Jessica Gonzalez CORRECTED WBC Normal 4.0-11.0 [facility] Comment on above: Performed By: #### C VDTBH #### [facility] [address] [place] [address] Dr. Jessica Gonzalez EOS # 0.00 103/ul Normal 0.00-0.70 [facility] Comment on above: Performed By: #### C VDTBH #### [facility] [address] [place] [address] Dr. Jessica Gonzalez EOS% 0.0 % Critically low 0.9-7.0 [facility] Comment on above: Performed By: #### C VDTBH #### [facility] [address] [place] [address] Dr. Jessica Gonzalez HCT 37.1 % Normal 36.0-48.0 [facility] Comment on above: Performed By: #### C VDTBH #### [facility] [address] [place] [address] Dr. Jesscia Gonzalez HGB 12.3 g/dl Normal 12.0-16.0 [facility] Comment on above: Performed By: #### C VDTBH #### [facility] [address] [place] [address] Dr. Jessica Gonzalez LYMPHM # 1.17 103/ul Critically low 1.20-3.80 [facility] Comment on above: Performed By: #### C VDTBH #### [facility] [address] [place] [address] Dr. Jessica Gonzalez LYMPHM% 7.0 % Critically low 20.5-60.0 [facility] Comment on above: Performed By: #### C VDTBH #### [facility] [address] [place] [address] Dr. Jessica Gonzalez MCH 33.2 pg Normal 26.7-34.0 [facility] Comment on above: Performed By: #### C VDTBH #### [facility] [address] [place] [address] Dr. Jessica Gonzalez MCHC 33.2 g/dl Normal 29.9-35.2 [facility] Comment on above: Performed By: #### C VDTBH #### [facility] [address] [place] [address] Dr. Jessica Gonzalez MCV 100.3 fL Critically high 81.0-99.0 [facility] Comment on above: Performed By: #### C VDTBH #### [facility] [address] [place] [address] Dr. Jessica Gonzalez METAMYELOCYTE # Normal [facility] Comment on above: Performed By: #### C VDTBH #### [facility] [address] [place] [address] Dr. Jessica Gonzalez METAMYELOCYTE % Normal [facility] Comment on above: Performed By: #### C VDTBH #### [facility] [address] [place] [address] Dr. Jessica Gonzalez MONOM# 0.67 103/ul Normal 0.30-0.80 [facility] Comment on above: Performed By: #### C VDTBH #### [facility] [address] [place] [address] Dr. Jessica Gonzalez MONOM% 4.0 % Normal 1.7-12.0 [facility] Comment on above: Performed By: #### C VDTBH #### [facility] [address] [place] [address] Dr. Jessica Gonzalez MPV 9.5 fL Normal 9.5-13.5 [facility] Comment on above: Performed By: #### C VDTBH #### [facility] [address] [place] [address] Dr. Jessica Gonzalez MYELOCYTE # Normal [facility] Comment on above: Performed By: #### C VDTBH #### [facility] [address] [place] [address] Dr. Jessica Gonzalez MYELOCYTE % Normal [facility] Comment on above: Performed By: #### C VDTBH #### [facility] [address] [place] [address] Dr. Jessica Gonzalez NRBC Normal [facility] Comment on above: Performed By: #### C VDTBH #### [facility] [address] [place] [address] Dr. Jessica Gonzalez PLT 206 103/ul Normal 150-450 [facility] Comment on above: Performed By: #### C VDTBH #### [facility] [address] [place] [address] Dr. Jessica Gonzalez RBC 3.70 106/ul Critically low 4.20-5.40 [facility] Comment on above: Performed By: #### C VDTBH #### [facility] [address] [place] [address] Dr. Jessica Gonzalez RDW 12.4 % Normal 11.0-15.0 [facility] Comment on above: Performed By: #### C VDTBH #### [facility] [address] [place] [address] Dr. Jessica Gonzalez SEG # 13.69 103/ul Critically high 1.40-6.50 [facility] Comment on above: Performed By: #### C VDTBH #### [facility] [address] [place] [address] Dr. Jessica Gonzalez SEG % 82.0 % Critically high 43.0-75.0 [facility] Comment on above: Performed By: #### C VDTBH #### [facility] [address] [place] [address] Dr. Jessica Gonzalez WBC 16.7 103/ul Critically high 4.0-11.0 [facility] Comment on above: Performed By: #### C VDTBH #### [facility] [address] [place] [address] Dr. Jessica Gonzalez PROF CHEM 8 (BAS METB)on Anion gap [Moles/Vol] 14.4 mmol/L Normal [facility] Comment on above: Performed By: #### S PUTGS #### [facility] [address] [place] [address] Dr. Jessica Gonzalez Calcium [Mass/Vol] 9.8 mg/dL Normal 8.4-10.2 [facility] Comment on above: Performed By: #### S PUTGS #### [facility] [address] [place] [address] Dr. Jessica Gonzalez Chloride [Moles/Vol] 100 mmol/L Normal 98-107 [facility] Comment on above: Performed By: #### S PUTGS #### [facility] [address] [place] [address] Dr. Jessica Gonzalez CO2 [Moles/Vol] 25.7 mmol/L Normal 22.0-30.0 [facility] Comment on above: Performed By: #### S PUTGS #### [facility] [address] [place] [address] Dr. Jessica Gonzalez Creatinine [Mass/Vol] 0.87 mg/dL Normal 0.52-1.04 [facility] Comment on above: Performed By: #### S PUTGS #### [facility] [address] [place] [address] Dr. Jessica Gonzalez EGFR-AF MAURITANIAN >60 Normal >=60 [facility] Comment on above: Performed By: #### S PUTGS #### [facility] [address] [place] [address] Dr. Jessica Gonzalez EGFR-NON AF MAURITANIAN >60 Normal >=60 [facility] Comment on above: Performed By: #### S PUTGS #### [facility] [address] [address] [address] Jessica Gonzalez Glucose [Mass/Vol] 194 mg/dL Critically high 74-106 [facility] Comment on above: Performed By: #### S PUTGS #### [facility] [address] [address] [address] Jessica Gonzalez Potassium [Moles/Vol] 3.1 mmol/L Critically low 3.4-5.0 [facility] Comment on above: Performed By: #### S PUTGS #### [facility] [address] [address] [address] Jessica Gonzalez Sodium [Moles/Vol] 137 mmol/L Normal 137-145 [facility] Comment on above: Performed By: #### S PUTGS #### [facility] [address] [address] [address] Jessica Gonzalez Urea nitrogen [Mass/Vol] 17.0 mg/dL Normal 7.0-17.0 [facility] Comment on above: Performed By: #### S PUTGS #### [facility] [address] [place] [address] Dr. Jessica Gonzalez Urea nitrogen/Creatinine [Mass ratio] 19.5 mg/mg Normal [facility] Comment on above: Performed By: #### S PUTGS #### [facility] [address] [address] [address] Jessica Gonzalez SPUTUM GRAM STAINon 06-08-19 COMMENTS Normal [facility] Comment on above: Performed By: #### S PUTGS #### [facility] [address] [place] [address] Dr. Jessica Gonzalez DIPHTHEROIDS Normal [facility] Comment on above: Performed By: #### S PUTGS #### [facility] [address] [place] [address] Dr. Jessica Gonzalez EPITHELIALS <25 [facility] Comment on above: Performed By: #### S PUTGS #### [facility] [address] [address] [address] Jessica Gonzalez FUNGAL ELEMENTS Normal [facility] Comment on above: Performed By: #### S PUTGS #### [facility] [address] [address] [address] Jessica Gonzalez GRAM NEG BACILLI Normal [facility] Comment on above: Performed By: #### S PUTGS #### [facility] [address] [address] [address] Jessica Gonzalez GRAM NEG DIPPLOCOCCI Normal [facility] Comment on above: Performed By: #### S PUTGS #### [facility] [address] [address] [address] Jessica WILLIS POS BACILLI RARE Normal [facility] Comment on above: Performed By: #### S PUTGS #### [facility] [address] [place] [address] Dr. Jessica Gonzalez GRAM POSITIVE COCCI FEW Normal [facility] Comment on above: Performed By: #### S PUTGS #### [facility] [address] [address] [address] Jessica Gonzalez WBC (Bld) [#/Vol] 10*3/uL Normal [facility] Comment on above: Performed By: #### S PUTGS #### [facility] [address] [place] [address] Dr. Jessica Gonzalez XR CHEST 2 Von 06-08-2021 XR CHEST 2 V EXAM: XR CHEST 2 V HISTORY: SHORTNESS OF BREATH COMPARISON: 06/07/2021 TECHNIQUE: PA and lateral FINDINGS: LUNGS: Significant interval progression of right lower lobe infiltrate marginating the fissures. The left lung is clear. VASCULATURE: No increased pulmonary vasculature. PLEURA: No pneumothorax, effusion, or pleural thickening. CARDIAC: No cardiomegaly or cardiac silhouette abnormality. MEDIASTINUM: No visible mass or adenopathy. BONES: No fracture or visible bone lesion. OTHER: Negative. IMPRESSION: Progression of right upper lobar pneumonia Electronically authenticated by: CALI BRITO Date: 2021-06-08 06:56 Normal [facility] CBC AUTO DIFFon 06-07-2021 BASO # 0.0 103/ul Normal 0.0-0.1 [facility] Comment on above: Performed By: #### C BC #### [facility] [address] [place] [address] Dr. Jessica Gonzalez Basophils/100 WBC (Bld) 0.3 % Normal 0.2-2.0 [facility] Comment on above: Performed By: #### C BC #### [facility] [address] [place] [address] Dr. Jessica Gonzalez EO # 0.1 103/ul Normal 0.0-0.7 [facility] Comment on above: Performed By: #### C BC #### [facility] [address] [place] [address] Dr. Jessica Gonzalez Eosinophils/100 WBC (Bld) 0.5 % Critically low 0.9-7.0 [facility] Comment on above: Performed By: #### C BC #### [facility] [address] [place] [address] Dr. Jessica Gonzalez Erythrocyte distribution width (RBC) [Ratio] 12.4 % Normal 11.0-15.0 [facility] Comment on above: Performed By: #### C BC #### [facility] [address] [place] [address] Dr. Jessica Gonzalez Hematocrit (Bld) [Volume fraction] 40.5 % Normal 36.0-48.0 [facility] Comment on above: Performed By: #### C BC #### [facility] [address] [place] [address] Dr. Jessica Gonzalez Hemoglobin (Bld) [Mass/Vol] 14.0 g/dL Normal 12.0-16.0 [facility] Comment on above: Performed By: #### C BC #### [facility] [address] [place] [address] Dr. Jessica Gonzalez IG # 0.26 10e3/ul Critically high 0.00-0.03 [facility] Comment on above: Performed By: #### C BC #### [facility] [address] [place] [address] Dr. Jessica Gonzalez IG % 1.7 % Critically high 0.0-0.5 [facility] Comment on above: Performed By: #### C BC #### [facility] [address] [place] [address] Dr. Jessica Gonzalez LYMPH # 0.7 103/ul Critically low 1.2-3.8 [facility] Comment on above: Performed By: #### C BC #### [facility] [address] [place] [address] Dr. Jessica Gonzalez Lymphocytes/100 WBC (Bld) 4.6 % Critically low 20.5-60.0 [facility] Comment on above: Performed By: #### C BC #### [facility] [address] [place] [address] Dr. Jessica Gonzalez MANUAL DIFF REQ NO Normal [facility] Comment on above: Performed By: #### C BC #### [facility] [address] [place] [address] Dr. Jessica Gonzalez MCH (RBC) [Entitic mass] 34.2 pg Critically high 26.7-34.0 [facility] Comment on above: Performed By: #### C BC #### [facility] [address] [place] [address] Dr. Jessica Gonzalez MCHC (RBC) [Mass/Vol] 34.6 g/dL Normal 29.9-35.2 [facility] Comment on above: Performed By: #### C BC #### [facility] [address] [place] [address] Dr. Jessica Gonzalez MCV (RBC) [Entitic vol] 99.0 fL Normal 81.0-99.0 [facility] Comment on above: Performed By: #### C BC #### [facility] [address] [place] [address] Dr. Jessica Gonzalez MONO # 0.4 103/ul Normal 0.3-0.8 [facility] Comment on above: Performed By: #### C BC #### [facility] [address] [place] [address] Dr. Jessica Gonzalez Monocytes/100 WBC (Bld) 2.5 % Normal 1.7-12.0 [facility] Comment on above: Performed By: #### C BC #### [facility] [address] [place] [address] Dr. Jessica Gonzalez NEUT # 14.0 103/ul Critically high 1.4-6.5 [facility] Comment on above: Performed By: #### C BC #### [facility] [address] [place] [address] Dr. Jessica Gonzalez Neutrophils/100 WBC (Bld) 90.4 % Critically high 43.0-75.0 [facility] Comment on above: Performed By: #### C BC #### [facility] [address] [place] [address] Dr. Jessica Gonzalez Platelet mean volume (Bld) [Entitic vol] 9.6 fL Normal 9.5-13.5 [facility] Comment on above: Performed By: #### C BC #### [facility] [address] [place] [address] Dr. Jessica Gonzalez PLT 168 103/ul Normal 150-450 [facility] Comment on above: Performed By: #### C BC #### [facility] [address] [place] [address] Dr. Jessica Gonzalez RBC 4.09 106/ul Critically low 4.20-5.40 [facility] Comment on above: Performed By: #### C BC #### [facility] [address] [place] [address] Dr. Jessica Gonzalez WBC 15.5 103/ul Critically high 4.0-11.0 [facility] Comment on above: Performed By: #### C BC #### [facility] [address] [place] [address] Dr. Jessica Gonzalez CTA CHEST WO W CONon 022 CTA CHEST WO W CON CTA OF THE CHEST HISTORY: Chest pain COMPARISON: None. TECHNIQUE: CT angiography of the pulmonary arteries following the administration of intravenous contrast. Coronal and sagittal MIP images were performed. Dose reduction techniques were achieved by using automated exposure control and/or adjustment of mA and/or kV according to patient size and/or use of iterative reconstruction technique. FINDINGS: There is no acute pulmonary embolism. The evaluation of the thoracic aorta is limited with no IV contrast. There is an enlarged right hilar lymph node measuring 2.1 x 1.6 cm There is no pericardial effusion. There are emphysematous changes. There is a large right upper lobe consolidation. There is minimal bilateral pleural effusions. There are no pleural effusions. There is no pneumothorax. The liver is fatty. There are bilateral renal cysts. There are no acute bony abnormalities. IMPRESSION: No acute pulmonary embolism. Large right upper lobe pneumonia. Recommend follow-up to resolution. Right hilar enlarged lymph node measuring 2.1 x 1.6 cm which is likely reactive however this can be reassessed on a follow posttreatment chest CT. Emphysema. Fatty liver. Bilateral renal cysts. Electronically authenticated by: MULU GARCIA Date: 2021-06-07 05:08 Normal [facility] CULTURE BLOODon 06-07-2021 Microscopic examination of blood, culture Culture Observations: No growth at 5 days. Normal [facility] Comment on above: Performed By: #### B MP #### [facility] [address] [place] [address] Dr. Jessica Gonzalez Covid-19 PCR (CVDTBH)on SARS-CoV-2 (COVID-19) RNA MASON+probe Ql (Unsp spec) Not detected Normal NOT DETECTED [facility] Comment on above: Result Comment: When diagnostic testing is negative, the possibility of a false negative should be considered in the context of a patient's recent exposures and the presence of clinical signs and symptoms consistent with SARS-CoV-2. This test is not yet approved or cleared by the [place] FDA. When there are no FDA-approved or cleared tests available, and other criteria are met, FDA can make tests available under an emergency access mechanism called an Emergency Use Authorization (EUA). The EUA for this test is supported by the [place] of Health and Human Service's declaration that circumstances exist to justify the emergency use of in vitro diagnostics for the detection and/or diagnosis of the virus that causes COVID-19. This EUA will remain in effect for the duration of the COVID-19 declaration justifying emergency of IVDs, unless it is terminated or revoked by the FDA (after which the test may no longer be used). Performed By: #### C VDTBH #### [facility] [address] [place] [address] Dr. Jessica Gonzalez LACTATE/LACTIC ACIDon 2021 Lactate [Moles/Vol] 1.8 mmol/L Normal 0.7-2.0 [facility] Comment on above: Performed By: #### C VDTBH #### [facility] [address] [place] [address] Dr. Jessica Gonzalez PROF 14(COMP METB)on 022 Albumin [Mass/Vol] 3.1 g/dL Critically low 3.5-5.0 [facility] Comment on above: Performed By: #### C MP #### [facility] [address] [place] [address] Dr. Jessica Gonzalez Albumin/Globulin [Mass ratio] 0.8 {ratio} Normal [facility] Comment on above: Performed By: #### C MP #### [facility] [address] [place] [address] Dr. Jessica Gonzalez ALP [Catalytic activity/Vol] 89 U/L Normal 38-126 [facility] Comment on above: Performed By: #### C MP #### [facility] [address] [place] [address] Dr. Jessica Gonzalez ALT [Catalytic activity/Vol] 21 U/L Normal 9-52 [facility] Comment on above: Performed By: #### C MP #### [facility] [address] [place] [address] Dr. Jessica Gonzalez Anion gap [Moles/Vol] 13.2 mmol/L Normal [facility] Comment on above: Performed By: #### C MP #### [facility] [address] [place] [address] Dr. Jessica Gonzalez AST [Catalytic activity/Vol] 15 U/L Normal 14-36 [facility] Comment on above: Performed By: #### C MP #### [facility] [address] [place] [address] Dr. Jessica Gonzalez Bilirubin [Mass/Vol] 1.2 mg/dL Normal 0.2-1.3 [facility] Comment on above: Performed By: #### C MP #### [facility] [address] [address] [address] Jessica Gonzalez Calcium [Mass/Vol] 9.0 mg/dL Normal 8.4-10.2 [facility] Comment on above: Performed By: #### C MP #### [facility] [address] [address] [address] Jessica Gonzalez Chloride [Moles/Vol] 102 mmol/L Normal 98-107 [facility] Comment on above: Performed By: #### C MP #### [facility] [address] [address] [address] Jessica Gonzalez CO2 [Moles/Vol] 27.4 mmol/L Normal 22.0-30.0 [facility] Comment on above: Performed By: #### C MP #### [facility] [address] [address] [address] Jessica Gonzalez Creatinine [Mass/Vol] 1.05 mg/dL Critically high 0.52-1.04 [facility] Comment on above: Performed By: #### C MP #### [facility] [address] [address] [address] Jessica Gonzalez EGFR-AF MAURITANIAN >60 Normal >=60 [facility] Comment on above: Performed By: #### C MP #### [facility] [address] [address] [address] Jessica Gonzalez EGFR-NON AF MAURITANIAN 53 mL/min/1.73m2 Critically low >=60 [facility] Comment on above: Performed By: #### C MP #### [facility] [address] [address] [address] Jessica Gonzalez Globulin (S) [Mass/Vol] 3.9 g/dL Normal [facility] Comment on above: Performed By: #### C MP #### [facility] [address] [address] [address] Jessica Gonzalez Glucose [Mass/Vol] 133 mg/dL Critically high 74-106 [facility] Comment on above: Performed By: #### C MP #### [facility] [address] [address] [address] Jessica Gonzalez Potassium [Moles/Vol] 3.6 mmol/L Normal 3.4-5.0 [facility] Comment on above: Performed By: #### C MP #### [facility] [address] [address] [address] Jessica Gonzalez Protein [Mass/Vol] 7.0 g/dL Normal 6.1-8.2 [facility] Comment on above: Performed By: #### C MP #### [facility] [address] [address] [address] Jessica Gonzalez Sodium [Moles/Vol] 139 mmol/L Normal 137-145 [facility] Comment on above: Performed By: #### C MP #### [facility] [address] [address] [address] Jessica Gonzalez Urea nitrogen [Mass/Vol] 14.0 mg/dL Normal 7.0-17.0 [facility] Comment on above: Performed By: #### C MP #### [facility] [address] [address] [address] Jessica Gonzalez Urea nitrogen/Creatinine [Mass ratio] 13.3 mg/mg Normal [facility] Comment on above: Performed By: #### C MP #### [facility] [address] [address] [address] Jessica Gonzalez XR CHEST 1 Von 06-07-2021 XR CHEST 1 V EXAM: XR CHEST 1 V HISTORY: SHORTNESS OF BREATH acute dyspnea, cough COMPARISON: None. TECHNIQUE: Single frontal view chest x-ray FINDINGS:Right upper lobe pulmonary opacity/consolidation . No large effusions or pneumothorax. No acute bony abnormality. Cardiac size unremarkable. IMPRESSION: Right upper lobe pulmonary opacity/consolidation concerning for pneumonia versus focal edema although underlying lung lesion not excluded. CT chest to further clarify as indicated. Electronically authenticated by: TERELL BENITEZ Date: 2021-06-07 02:24 Normal [facility] Encounters Encounter Date Encounter Type Care Provider Facility Start: 06-07-2021 End: 06-15-2021 Evaluation and management of inpatient DR REAGAN MACDONALD Facility:[facility] Start: 05-16-2021 End: 05-17-[address] ASTRID KELLY Facility:[facility] Payers Date Payer Category Payer Unknown [id number] 1955 Unknown [id number] 1955 Unknown [id number] Clinical Note 05-16-2021 Note Date & Type Note Facility 05-16-2021 Note PROCEDURE: XR GI UPP ER AIR KUB DUAL CONTRAST, XR CINERADIOGRAPHY COMPARISON: None. HISTORY: Digestive system finding ; epigastric pain, sensation of food getting stuck in proximal esophagus, chronic symptoms which are increasing in frequency TECHNIQUE: An air contrast upper gastrointestinal series was performed in the usual manner. Standard level fluoroscopic mode of operation utilized. 1.5 minutes; 13 images FINDINGS: ESOPHAGUS: Several episodes of gastroesophageal reflux extending to midthoracic level. No visible mucosal irregularity, stricture,, dilatation, or hernia STOMACH: No obstruction, mass, or ulceration. Normal motility. DUODENUM:No ulceration or diverticulum. OTHER: Negative. IMPRESSION: 1. Moderate gastroesophageal reflux which may contribute to patient's symptoms by causing esophageal spasm. Electronically authenticated by: ASTRID KELLY Date: 2021-05-16 09:51 [facility] Clinical Note 05-16-2021 Note Date & Type Note Facility 05-16-2021 Note PROCEDURE: XR GI UPP ER AIR KUB DUAL CONTRAST, XR CINERADIOGRAPHY COMPARISON: None. HISTORY: Digestive system finding ; epigastric pain, sensation of food getting stuck in proximal esophagus, chronic symptoms which are increasing in frequency TECHNIQUE: An air contrast upper gastrointestinal series was performed in the usual manner. Standard level fluoroscopic mode of operation utilized. 1.5 minutes; 13 images FINDINGS: ESOPHAGUS: Several episodes of gastroesophageal reflux extending to midthoracic level. No visible mucosal irregularity, stricture,, dilatation, or hernia STOMACH: No obstruction, mass, or ulceration. Normal motility. DUODENUM:No ulceration or diverticulum. OTHER: Negative. IMPRESSION: 1. Moderate gastroesophageal reflux which may contribute to patient's symptoms by causing esophageal spasm. Electronically authenticated by: ASTRID KELLY Date: 2021-05-16 09:51 [facility] Summary Purpose Family History No Family History Records Found Advance Directives No Advanced Directives Records Found Additional Source Comments INFORMATION SOURCE (unrecogn ized section and content) DATE CREATED AUTHOR 06/23/2021 [facility] FOR RECORDS PERTAINING TO PATIENTS WHO ARE OR HAVE BEEN ENROLLED IN A CHEMICAL DEPENDENCY/SUBSTANCEABUSE PROGRAM, SOME INFORMATION MAY BE OMITTED. This clinical summary was aggregated from multiple sources. Caution should be exercised in using it in the provision of clinical care. This summary normalizes information from multiple sources, and as a consequence, information in this document may materially change the coding, format and clinical context of patient data. In addition, data may be omitted in some cases. CLINICAL DECISIONS SHOULD BE BASED ON THE PRIMARY CLINICAL RECORDS. [facility] [employer] [facility]. provides no warranty or guarantee of the accuracy or completeness of information in this document.
[2023-06-06] MEDS: CODEINE 10 MG/GUAIFENESIN 100 MG 5 ML CUP 10 ML PO (20:56)
[2023-06-06] MEDS: HYDRALAZINE HCL 20 MG/ML VIAL 10 MG IVP (22:20)
[2023-06-07 00:10] VITALS: PULSE 111; RESP 20; O2SAT 95
[2023-06-07] MEDS: METHYLPREDNISOLONE SOD SUCC PF 125 MG/2 ML VIAL 60 MG IVP ×2 (00:40→10:20)
[2023-06-07 04:04] VITALS: PULSE 100; RESP 20; O2SAT 90
[2023-06-07] MEDS: IPRATROPIUM/ALBUTEROL SULFATE 3 ML AMPUL.NEB IH ×3 (04:04→11:25)
[2023-06-07 04:16] VITALS: PULSE 110; RESP 20; O2SAT 94
[2023-06-07 04:31] VITALS: BP 148/83; PULSE 115; RESP 20; TEMP 36.6; O2SAT 93
[2023-06-07] MEDS: ACETAMINOPHEN 325 MG TABLET 650 MG PO (04:40)
[2023-06-07 06:00] LABS: Basophils Percent Auto 0.1 % (0.2-2.0); Hematocrit 44.4 % (36.0-48.0); Hemoglobin 14.6 g/dL (12.0-16.0); Immature Granulocytes Abs Auto 0.09 10^3/uL (0.00-0.03); Lymphocytes Absolute Auto 1.2 10^3/uL (1.2-3.8); Lymphocytes Percent Auto 12.2 % (20.5-60.0); Mean Corpuscular HGB Conc 32.9 g/dL (29.9-35.2); Mean Corpuscular Volume 100.2 fL (81.0-99.0); Mean Platelet Volume 9.3 fL (9.5-13.5); Monocytes Absolute Auto 0.1 10^3/uL (0.3-0.8); Neutrophils Absolute Auto 8.1 10^3/uL (1.4-6.5); Neutrophils Percent Auto 85.7 % (43.0-75.0); Platelet Count 234 10^3/uL (150-450); Red Blood Count 4.43 10^6/uL (4.20-5.40); Red Cell Distribution Width 12.6 % (11.0-15.0); White Blood Count 9.5 10^3/uL (4.0-11.0)
[2023-06-07 06:09] LABS: Anion Gap 12.3; BUN Creatinine Ratio 16.7; Calcium 10.2 mg/dL (8.5-10.1); Carbon Dioxide 32.5 mmol/L (21.0-32.0); Chloride 100 mmol/L (98-107); Estimated GFR (African America >60 (>=60); Estimated GFR (Non-African Ame >60 (>=60); Glucose 160 mg/dL (74-106); Potassium 3.8 mmol/L (3.5-5.1); Sodium 141 mmol/L (136-145)
[2023-06-07 07:36] VITALS: PULSE 102; O2SAT 92
[2023-06-07] MEDS: ENOXAPARIN SODIUM 40 MG/0.4 ML SYRINGE SUBQ (10:20)
[2023-06-07] MEDS: LISINOPRIL 10 MG TABLET PO (10:21)
[2023-06-07] MEDS: HYDROCHLOROTHIAZIDE 25 MG TABLET 12.5 MG PO (10:21)
[2023-06-07] MEDS: GUAIFENESIN 600 MG TAB.ER.12H PO (10:21)
--- NOTE | 2023-06-07 10:55 | CM.NOTE ---
Rounding with Dr. Duff, discussed discharge to home today. No discharge needs identified.
[2023-06-07 11:26] VITALS: PULSE 100; O2SAT 93
--- NOTE | 2023-06-07 12:01 | P.DS_ITS ---
DS: Providers Provider Date of admission: 06/06/23 11:21 Primary care physician: Piter Duff MD Consults: 06/05/23 Consult to Dietitian Routine Reason For Exam: over 30 pounds lost recently Reason for consultation: weight loss DS: Diagnosis Discharge Diagnosis (1) COPD exacerbation: (2) RSV (respiratory syncytial virus infection): (3) Hypertension: (4) Personal history of pulmonary embolism: DS: Summary Hospital Course Hospital Course: Reason for admission: See H&P for details. 67 y/o female sent to ER for SOB. C/o cough, congestion, and rhinorrhea for several days. Seen at urgent care and Covid negative. Given albuterol and medrol but no improvement. Continued to have severe SOB and fatigue with exertion. Chest tight and hard to catch breath. Frequent dry cough. Scheduled in office but on arrival noticed to have increased work of breathing and tachypnea and directed to ER. Normal SpO2 on room air. Given solu-medrol and DuoNeb but continued symptoms. Chest x-ray and d-dimer negative. Admitted for treatment. Hospital course: Started solu-medrol and DuoNeb. History of PE and cavitary pneumonia in past and CT performed which showed atypical pneumonia. Added levaquin. Respiratory panel obtained and positive for RSV. Patient slowly improved. Normal SpO2 on room air. Continued to have SOB and cough with exertion. Mild SOB with speech. Ambulating around room without difficulty. Afebrile. Discharged home in stable condition. Will take levaquin x 7 days and prednisone tapered over 12 days. Use DuoNeb aerosols every 4 hours PRN. Resume home medication as directed. F/u in office next week as scheduled. Time Spent with Patient Time attestation: Total time spent providing and/or coordinating discharge services: Exam Constitutional Vital Signs, click to edit/add: Last Vital Signs Temp 97.8 F 06/07/23 04:31 Pulse 100 H 06/07/23 11:26 Resp 20 06/07/23 04:31 BP 148/83 H 06/07/23 04:31 Pulse Ox 93 L 06/07/23 11:26 O2 Del Method Room Air 06/07/23 11:26 O2 Flow Rate 2 06/05/23 20:42 Documenting provider has reviewed patient's vital signs: yes Common normals: no apparent distress, oriented x3 and alert HENMT Common normals: normocephalic Eye Common normals: PERRL and EOMs intact bilaterally Respiratory Auscultation: wheezes and diminished lung sounds Cardio Common normals: regular rate, regular rhythm, no clicks, no murmurs and no rub GI Common normals: Normal to inspection, nondistended, normoactive bowel sounds present and non-tender Extremity Common normals: no pedal edema DS: Data Data Completed and Pending Labs on day of discharge: Labs from last 24 hours 06/07/23 05:00 WBC 9.5 RBC 4.43 Hgb 14.6 Hct 44.4 MCV 100.2 H MCH 33.0 MCHC 32.9 RDW 12.6 Plt Count 234 MPV 9.3 L Neut % (Auto) 85.7 H Lymph % (Auto) 12.2 L [place] % (Auto) 1.0 L Eos % (Auto) 0.0 L Baso % (Auto) 0.1 L Neut # (Auto) 8.1 H Lymph # (Auto) 1.2 [place] # (Auto) 0.1 L Eos # (Auto) 0.0 Baso # (Auto) 0.0 Abs Immat Gran (auto) 0.09 H Imm/Tot Granulo (auto) 1.0 H Sodium 141 Potassium 3.8 Chloride 100 Carbon Dioxide 32.5 H Anion Gap 12.3 BUN 15.0 Creatinine 0.90 Est GFR ( Amer) >60 Est GFR (Non-Af Amer) >60 BUN/Creatinine Ratio 16.7 Glucose 160 H Calcium 10.2 H Discharge Plan Discharge Disposition: Home, Self-Care Condition: Fair Discharge Medications: New ipratropium-albuterol 0.5 mg-3 mg(2.5 mg base)/3 mL Solution For Nebulization 3 ml inhalation Q4H PRN (Reason: Bronchospasm) Qty: 180 0RF prednisone 10 mg tablets,dose pack 10 mg PO DAILY Qty: 39 0RF Rx Instructions: 6 PO daily x 3 days, then 4 PO daily x 3 days, then 2 PO daily x 3 days, then 1 PO daily x 3 days levofloxacin 750 mg tablet 750 mg PO DAILY 7 Days Qty: 7 0RF Continued albuterol sulfate 90 mcg/actuation HFA aerosol inhaler 2 inh INHALATION Q4H PRN (Reason: bronchospasm) Rx Instructions: Q4-6 hours prn lisinopril-hydrochlorothiazide 10-12.5 mg tablet 1 tab PO DAILY [place] DM 7.5-7.5 mg/5 mL liquid 10 ml PO DAILY Rx Instructions: if taken as directed, therapy should last until 06/08/2023 omeprazole .ROUTE Discontinued methylprednisolone 4 mg tablets,dose pack 4 mg PO DAILY Rx Instructions: therapy should be finished by 06/09/2023 if taken as directed Activity: resume usual activities as tolerated Diet: advance to your usual diet Forms: Portal Instructions Follow Up Appointments: Jun.12 @ 1:45pm with Dr. Duff [phone]
== END 2023-06-07 12:37 | disposition home or self-care (01) | DRG 193 ==
LOC: ER 18:55 → MS 06-06 13:42
PROVIDERS: Nurse Practitioner Acute Care; Nurse Practitioner Family; Admitting Provider Family Medicine; Emergency Provider Emergency Medicine; PCP Family Medicine; Visit Provider Family Medicine
DX: J12.1 Respiratory syncytial virus pneumonia (principal); E43 Unspecified severe protein-calorie malnutrition; J44.0 Chronic obstructive pulmonary disease with (acute) lower respiratory infection; J44.1 Chronic obstructive pulmonary disease with (acute) exacerbation; I10 Essential (primary) hypertension; F17.200 Nicotine dependence, unspecified, uncomplicated; Z86.711 Personal history of pulmonary embolism; Z68.31 Body mass index [BMI] 31.0-31.9, adult; Z87.01 Personal history of pneumonia (recurrent); Z82.49 Family history of ischemic heart disease and other diseases of the circulatory system; Z63.4 Disappearance and death of family member; Z79.899 Other long term (current) drug therapy
CPT/HCPCS: 0202U; 36415; 71045; 71275; 80048; 83880; 84484; 85007; 85025; 85027; 85378; 87635; 87804; 87811; 93005; 94640; 94667; 94668; 94761; 96365; 96372; 96375; 96376; 99285; G0378; J0360; J1650; J2930; Q9967

== ENCOUNTER 2023-12-05 08:15 | Outpatient (OUT) | payer MEDICARE, SELFPAY ==
--- OUTSIDE RECORDS SUMMARY | 2023-12-05 08:24 | XMS_ITS | CCD ---
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 Name Role Phone TORRES, DR REAGAN Vance Consulting Unavailable NADJEFFRY, DR CIRO Berg Admitting Unavailable NADERERajiv, DR CIRO Berg Attending Unavailable ALISHA, DR CALI Anthony Consulting Unavailable NADERERajiv, DR CIRO Berg Consulting Unavailable SAM, OXANA Consulting Unavailable Policaro, Mulu Consulting Unavailable Terell King Consulting Unavailable ZIGLORY, DR ASTRID Vance Consulting Unavailable MADIHA, DR CIRO Berg Admitting Unavailable MADIHA, DR CIRO Berg Attending Unavailable MADIHA, DR CIRO Berg Consulting Unavailable Erma Shields Unavailable MADIHA, CIRO Attending Unavailable MADIHA, CIRO Attending Unavailable Medications Current Medications Medication Drug Class(es) Dates Sig (Normalized) Sig (Original) [id number] actuat albuterol 0.09 mg/actuat metered dose inhaler (2 sources) beta2-Adrenergic Agonist Start: 06-03-2023 take 2 puff(s) by inhalation every four to six hours as needed Albuterol Sulfate HFA 108 (90 Base) MCG/ACT 2 puffs as needed Inhalation every 4-6 hours for 14 days May, Active take 2 puff(s) by in halation every four hours as needed Ventolin HFA 108 (90 Base) MCG/ACT 2 puffs as needed Inhalation every 4 hrs Active dextromethorphan hydrobromide 1.5 mg/ml / pyrilamine maleate 1.5 mg/ml oral solution (1 source) Uncompetitive D-enxtwy-B-aspartate Receptor Antagonist, Sigma-1 Agonist Start: 06-03-2023 take 10 mL by mouth every eight hours [place] DM 7.5-7.5 MG/5ML 10 mL Orally every 8 hours for 5 days May, Active 60 actuat formoterol fumarate 0.005 mg/actuat / mometasone furoate 0.2 mg/actuat metered dose inhaler (1 source) Corticosteroid, beta2-Adrenergic Agonist take 2 puff(s) by inhalation twice daily Dulera 200-5 MCG/ACT 2 puffs Inhalation Twice a day Active lisinopril 20 mg oral tablet (1 source) Angiotensin Converting Enzyme Inhibitor take 1 tablet by mouth every twenty-four hours Lisinopril 20 MG 1 tablet Orally Once a day Active methylPREDNISolone 4 mg oral tablet (1 source) Corticosteroid Start: 06-03-2023 methylPREDNISolone 4 MG as directed Orally for 6 May, Active Completed/Discontinued Medications Medication Drug Class(es) Dates Sig (Normalized) Sig (Original) Dexamethasone (1 source) Corticosteroid Start: 06-03-2023 DEXAMETHASONE May, 1.5 mg nitrofurantoin, macrocrystals 25 mg / nitrofurantoin, monohydrate 75 mg oral capsule (1 source) Nitrofuran Antibacterial Start: 05-14-2016 take 1 capsule by mouth every twelve hours Macrobid 100 MG 1 capsule with food Orally every 12 hrs for 7 day(s) May, Not-Taking/PRN phenazopyridine hydrochloride 200 mg oral tablet (1 source) Start: 05-14-2016 take 1 tablet by mouth every eight hours Pyridium 200 MG 1 tablet after meals Orally Three times a day for 2 day(s) May, Not-Taking/PRN Problems Active Problems Problem Classification Problem Date Documented Da te Episodic/Chronic Asthma (3 sources) Mild intermittent asthma, uncomplicated; Translations: [Mild intermittent asthma] Onset: 06-22-2021 Chronic Chronic obstructive pulmonary disease [...] [CONTACT W/AND (SUSP) EXPOS COVID-19] Onset: 06-22-2021 Past or Other Problems Problem Classification Problem Date Documented Da te Episodic/Chronic Unclassified (1 source) Acute cough R05.1 Results Test Name Value Interpretation Reference Range Facility COVID + FLU Quick Testingon 06-03-2023 SARS-CoV-2 (COVID-19) RNA MASON+probe Ql (Unsp spec) Negative [employer] Other COVID + FLU Quick Testing Negative [employer] Other PTHIT-[id number] PHENOTYP INGon 06-14-2021 Tcfbi-9-[id number], Serum 266 mg/dL Critically high 101-187 [facility] Comment on above: Result Comment: Perf ormed at: CB Performed By: #### [facility] #### [facility] [address] [place] [address] Dr. Jessica Masters (PI) MM Normal [facility] Comment on above: Result Comment: Phen otype [...] BN Performed By: #### C VDTB #### [facility] [address] [place] [address] Dr. Jessica Gonzalez CBC W MANUAL DIFFon 06-14-19 22 ATYPICAL LYMPH # Normal [facility] Comment on above: Performed By: #### C ANDRES #### [facility] [address] [place] [address] Dr. Jessica Gonzalez ATYPICAL LYMPH % Normal [facility] Comment on above: Performed By: #### C ANDRES #### [facility] [address] [place] [address] Dr. Jessica Gonzalez BAND # 1.2 103/ul Critically high 0.0-0.3 [facility] [place] Comment on above: Performed By: #### C ANDRES #### [facility] [address] [place] [address] Dr. Jessica Gonzalez BAND % 6 % Critically high 0-5 [facility] [place] Comment on above: Performed By: #### C ANDRES #### [facility] [address] [place] [address] Dr. Jessica Gonzalez BASOM # 0.00 103/ul Normal 0.00-0.10 [facility] Comment on above: Performed By: #### C ANDRES #### [facility] [address] [place] [address] Dr. Jessica Gonzalez BASOM % 0.0 % Critically low 0.2-2.0 [facility] Comment on above: Performed By: #### C BCRODY #### [facility] [address] [place] [address] Dr. Jessica Gonzalez BLAST # Normal [facility] Comment on above: Performed By: #### C ANDRES #### [facility] [address] [place] [address] Dr. Jessica Gonzalez BLAST % Normal [facility] Comment on above: Performed By: #### C BCRODY #### [facility] [address] [place] [address] Dr. Jessica Gonzalez CORRECTED WBC Normal 4.0-11.0 [facility] Comment on above: Performed By: #### C ANDRES #### [facility] [address] [place] [address] Dr. Jessica Gonzalez EOS # 0.00 103/ul Normal 0.00-0.70 [facility] Comment on above: Performed By: #### C ANDRES #### [facility] [address] [place] [address] Dr. Jessica Gonzalez EOS% 0.0 % Critically low 0.9-7.0 [facility] Comment on above: Performed By: #### C ANDRES #### [facility] [address] [place] [address] Dr. Jessica Gonzalez HCT 37.7 % Normal 36.0-48.0 [facility] Comment on above: Performed By: #### C ANDRES #### [facility] [address] [place] [address] Dr. Jessica Gonzalez HGB 12.6 g/dl Normal 12.0-16.0 [facility] Comment on above: Performed By: #### C ANDRES #### [facility] [address] [place] [address] Dr. Jessica Gonzalez LYMPHM # 1.76 103/ul Normal 1.20-3.80 [facility] Comment on above: Performed By: #### C ANDRES #### [facility] [address] [place] [address] Dr. Jessica Gonzalez LYMPHM% 9.0 % Critically low 20.5-60.0 [facility] Comment on above: Performed By: #### C ANDRES #### [facility] [address] [address] [address] Jessica Gonzalez MCH 33.4 pg Normal 26.7-34.0 [facility] Comment on above: Performed By: #### C ANDRES #### [facility] [address] [address] [address] Jessica Gonzalez MCHC 33.4 g/dl Normal 29.9-35.2 [facility] Comment on above: Performed By: #### C ANDRES #### [facility] [address] [place] [address] Dr. Jessica Gonzalez MCV 100.0 fL Critically high 81.0-99.0 [facility] [place] Comment on above: Performed By: #### C ANDRES #### [facility] [address] [place] [address] Dr. Jessica Gonzalez METAMYELOCYTE # Normal [facility] [place] Comment on above: Performed By: #### C ANDRES #### [facility] [address] [place] [address] Dr. Jessica Gonzalez METAMYELOCYTE % Normal [facility] [place] Comment on above: Performed By: #### C ANDRES #### [facility] [address] [place] [address] Dr. Jessica Gonzalez MONOM# 0.98 103/ul Critically high 0.30-0.[address] [facility] Comment on above: Performed By: #### C ANDRES #### [facility] [address] [place] [address] Dr. Jessica Gonzalez MONOM% 5.0 % Normal 1.7-12.0 [facility] Comment on above: Performed By: #### C ANDRES #### [facility] [address] [place] [address] Dr. Jessica Gonzalez MPV 9.3 fL Critically low 9.5-13.5 [facility] Comment on above: Performed By: #### C ANDRES #### [facility] [address] [address] [address] Jessica Gonzalez MYELOCYTE # Normal [facility] Comment on above: Performed By: #### C ANDRES #### [facility] [address] [address] [address] Jessica Gonzalez MYELOCYTE % Normal [facility] Comment on above: Performed By: #### C ANDRES #### [facility] [address] [address] [address] Jessica Gonzalez NRBC Normal [facility] Comment on above: Performed By: #### C ANDRES #### [facility] [address] [address] [address] Jessica Gonzalez PLT 271 103/ul Normal 150-450 [facility] Comment on above: Performed By: #### C ANDRES #### [facility] [address] [address] [address] Jessica Gonzalez RBC 3.77 106/ul Critically low 4.20-5.40 [facility] Comment on above: Performed By: #### C ANDRES #### [facility] [address] [address] [address] Jessica Gonzalez RDW 13.6 % Normal 11.0-15.0 [facility] Comment on above: Performed By: #### C ANDRES #### [facility] [address] [address] [address] Jessica Gonzalez SEG # 15.68 103/ul Critically high 1.40-6.50 [facility] Comment on above: Performed By: #### C ANDRES #### [facility] [address] [address] [address] Jessica Gonzalez SEG % 80.0 % Critically high 43.0-75.0 [facility] [place] Comment on above: Performed By: #### C ANDRES #### [facility] [address] [address] [address] Jessica Gonzalez WBC 19.6 103/ul Critically high 4.0-11.[address] [facility] Comment on above: Performed By: #### C ANDRES #### [facility] [address] [address] [address] Jessica Gonzalez PROF CHEM 8 (BAS METB)on Anion gap [Moles/Vol] 12.0 mmol/L Normal [facility] Comment on above: Performed By: #### B MP #### [facility] [address] [address] [address] Jessica Gonzalez Calcium [Mass/Vol] 8.7 mg/dL Normal 8.4-10.2 [facility] Comment on above: Performed By: #### B MP #### [facility] [address] [address] [address] Jessica Gonzalez Chloride [Moles/Vol] 103 mmol/L Normal 98-107 [facility] Comment on above: Performed By: #### B MP #### [facility] [address] [place] [address] Dr. Jessica Gonzalez CO2 [Moles/Vol] 27.7 mmol/L Normal 22.0-30.[address] [facility] Comment on above: Performed By: #### B MP #### [facility] [address] [place] [address] Dr. Jessica Gonzalez Creatinine [Mass/Vol] 0.85 mg/dL Normal 0.52-1.04 [facility] Comment on above: Performed By: #### B MP #### [facility] [address] [place] [address] Dr. Jessica Gonzalez EGFR-AF MONTSERRATIAN >60 Normal >=[address] [facility] Comment on above: Performed By: #### B MP #### [facility] [address] [place] [address] Dr. Jessica Gonzalez EGFR-NON AF MONTSERRATIAN >60 Normal >=60 [facility] Comment on above: Performed By: #### B MP #### [facility] [address] [place] [address] Dr. Jessica Gonzalez Glucose [Mass/Vol] 156 mg/dL Critically high 74-106 [facility] Comment on above: Performed By: #### B MP #### [facility] [address] [address] [address] Jessica Gonzalez Potassium [Moles/Vol] 3.7 mmol/L Normal 3.4-5.0 [facility] Comment on above: Performed By: #### B MP #### [facility] [address] [place] [address] Dr. Jessica Gonzalez Sodium [Moles/Vol] 139 mmol/L Normal 137-145 [facility] Comment on above: Performed By: #### B MP #### [facility] [address] [place] [address] Dr. Jessica Gonzalez Urea nitrogen [Mass/Vol] 18.0 mg/dL Critically high 7.0-17.0 [facility] Comment on above: Performed By: #### B MP #### [facility] [address] [place] [address] Dr. Jessica Gonzalez Urea nitrogen/Creatinine [Mass ratio] 21.2 mg/mg Normal [facility] Comment on above: Performed By: #### B MP #### [facility] [address] [place] [address] Dr. Jessica Gonzalez CBC W MANUAL DIFFon 06-13-19 22 ATYPICAL LYMPH # Normal [facility] Comment on above: Performed By: #### C VDTBH #### [facility] [address] [place] [address] Dr. Jessica Gonzalez ATYPICAL LYMPH % Normal [facility] Comment on above: Performed By: #### C VDTBH #### [facility] [address] [place] [address] Dr. Jessica Gonzalez BAND # 2.0 103/ul Critically high 0.0-0.3 [facility] [place] Comment on above: Performed By: #### C VDTBH #### [facility] [address] [place] [address] Dr. Jessica Gonzalez BAND % 11 % Critically high 0-5 [facility] [place] Comment on above: Performed By: #### C VDTBH #### [facility] [address] [place] [address] Dr. Jessica Gonzalez BASOM # 0.00 103/ul Normal 0.00-0.10 [facility] Comment on above: Performed By: #### C VDTBH #### [facility] [address] [place] [address] Dr. Jessica Gonzalez BASOM % 0.0 % Critically low 0.2-2.0 [facility] Comment on above: Performed By: #### C VDTBH #### [facility] [address] [place] [address] Dr. Jessica Gonzalez BLAST # Normal [facility] Comment on above: Performed By: #### C VDTBH #### [facility] [address] [place] [address] Dr. Jessica Gonzalez BLAST % Normal [facility] Comment on above: Performed By: #### C VDTBH #### [facility] [address] [place] [address] Dr. Jsesica Gonzalez CORRECTED WBC Normal 4.0-11.0 [facility] Comment on above: Performed By: #### C VDTBH #### [facility] [address] [place] [address] Dr. Jessica Gonzalez EOS # 0.18 103/ul Normal 0.00-0.70 [facility] Comment on above: Performed By: #### C VDTBH #### [facility] [address] [place] [address] Dr. Jessica Gonzalez EOS% 1.0 % Normal 0.9-7.0 [facility] Comment on above: Performed By: #### C VDTBH #### [facility] [address] [place] [address] Dr. Jessica Gonzalez HCT 37.5 % Normal 36.0-48.0 [facility] Comment on above: Performed By: #### C VDTBH #### [facility] [address] [place] [address] Dr. Jessica Gonzalez HGB 12.5 g/dl Normal 12.0-16.0 [facility] Comment on above: Performed By: #### C VDTBH #### [facility] [address] [place] [address] Dr. Jessica Gonzalez LYMPHM # 2.00 103/ul Normal 1.20-3.80 [facility] Comment on above: Performed By: #### C VDTBH #### [facility] [address] [place] [address] Dr. Jessica Gonzalez LYMPHM% 11.0 % Critically low 20.5-60.0 [facility] Comment on above: Performed By: #### C VDTBH #### [facility] [address] [place] [address] Dr. Jessica Gonzalez MCH 33.2 pg Normal 26.7-34.0 [facility] Comment on above: Performed By: #### C VDTBH #### [facility] [address] [place] [address] Dr. Jessica Gonzalez MCHC 33.3 g/dl Normal 29.9-35.2 [facility] Comment on above: Performed By: #### C VDTBH #### [facility] [address] [place] [address] Dr. Jessica Gonzalez MCV 99.7 fL Critically high 81.0-99.0 [facility] Comment on above: Performed By: #### C VDTBH #### [facility] [address] [place] [address] Dr. Jessica Gonzalez METAMYELOCYTE # Normal [facility] [place] Comment on above: Performed By: #### C VDTBH #### [facility] [address] [place] [address] Dr. Jessica Gonzalez METAMYELOCYTE % Normal [facility] [place] Comment on above: Performed By: #### C VDTBH #### [facility] [address] [place] [address] Dr. Jessica Gonzalez MONOM# 1.46 103/ul Critically high 0.30-0.80 [facility] Comment on above: Performed By: #### C VDTBH #### [facility] [address] [place] [address] Dr. Jessica Gonzalez MONOM% 8.0 % Normal 1.7-12.0 [facility] Comment on above: Performed By: #### C VDTBH #### [facility] [address] [address] [address] Jessica Gonzalez MPV 10.2 fL Normal 9.5-13.5 [facility] Comment on above: Performed By: #### C VDTBH #### [facility] [address] [address] [address] Jessica Gonzalez MYELOCYTE # Normal [facility] Comment on above: Performed By: #### C VDTBH #### [facility] [address] [address] [address] Jessica Gonzalez MYELOCYTE % Normal [facility] Comment on above: Performed By: #### C VDTBH #### [facility] [address] [place] [address] Dr. Jessica Gonzalez NRBC Normal [facility] Comment on above: Performed By: #### C VDTBH #### [facility] [address] [place] [address] Dr. Jessica Gonzalez PLT 223 103/ul Normal 150-450 [facility] Comment on above: Performed By: #### C VDTBH #### [facility] [address] [address] [address] Jessica Gonzalez RBC 3.76 106/ul Critically low 4.20-5.40 [facility] Comment on above: Performed By: #### C VDTBH #### [facility] [address] [place] [address] Dr. Jessica Gonzalez RDW 13.8 % Normal 11.0-15.0 [facility] Comment on above: Performed By: #### C VDTBH #### [facility] [address] [place] [address] Dr. Jessica Gonzalez SEG # 12.56 103/ul Critically high 1.40-6.50 [facility] Comment on above: Performed By: #### C VDTBH #### [facility] [address] [address] [address] Jessica Gonzalez SEG % 69.0 % Normal 43.0-75.0 [facility] Comment on above: Performed By: #### C VDTBH #### [facility] [address] [address] [address] Jessica Gonzalez WBC 18.2 103/ul Critically high 4.0-11.[address] [facility] Comment on above: Performed By: #### C VDTBH #### [facility] [address] [address] [address] CHEST WO CONon 06-13-2021 CT CHEST WO CON EXAMINATION: CT CHEST WO CON HISTORY: SHORTNESS OF BREATH , [...] CALI BRITO Date: 2021-06-13 09:23 Normal [facility] PROF CHEM 8 (BAS METB)on Anion gap [Moles/Vol] 11.7 mmol/L Normal [facility] Comment on above: Performed By: #### C VDTBH #### [facility] [address] [place], [place] [address] Dr. Jessica Gonzalez Calcium [Mass/Vol] 8.9 mg/dL Normal 8.4-10.2 [facility] Comment on above: Performed By: #### C VDTBH #### [facility] [address] [address] [address] Jessica Gonzalez Chloride [Moles/Vol] 106 mmol/L Normal 98-107 [facility] Comment on above: Performed By: #### C VDTBH #### [facility] [address] [address] [address] Jessica Gonzalez CO2 [Moles/Vol] 26.1 mmol/L Normal 22.0-30.[address] [facility] Comment on above: Performed By: #### C VDTBH #### [facility] [address] [address] [address] Jessica Gonzalez Creatinine [Mass/Vol] 0.81 mg/dL Normal 0.52-1.04 [facility] Comment on above: Performed By: #### C VDTBH #### [facility] [address] [place] [address] Dr. Jessica Gonzalez EGFR-AF MONTSERRATIAN >60 Normal >=[address] [facility] Comment on above: Performed By: #### C VDTBH #### [facility] [address] [place] [address] Dr. Jessica Gonzalez EGFR-NON AF MONTSERRATIAN >60 Normal >=60 [facility] Comment on above: Performed By: #### C VDTBH #### [facility] [address] [address] [address] Jessica Gonzalez Glucose [Mass/Vol] 167 mg/dL Critically high 74-106 [facility] Comment on above: Performed By: #### C VDTBH #### [facility] [address] [place] [address] Dr. Jessica Gonzalez Potassium [Moles/Vol] 3.8 mmol/L Normal 3.4-5.0 [facility] Comment on above: Performed By: #### C VDTBH #### [facility] [address] [address] [address] Jessica Gonzalez Sodium [Moles/Vol] 140 mmol/L Normal 137-145 [facility] Comment on above: Performed By: #### C VDTBH #### [facility] [address] [address] [address] Jessica Gonzalez Urea nitrogen [Mass/Vol] 19.0 mg/dL Critically high 7.0-17.0 [facility] Comment on above: Performed By: #### C VDTBH #### [facility] [address] [address] [address] Jessica Gonzalez Urea nitrogen/Creatinine [Mass ratio] 23.5 mg/mg Normal [facility] Comment on above: Performed By: #### C VDTBH #### [facility] [address] [address] [address] Jessica Gonzalez XR CHEST 2 Von 06-13-2021 XR CHEST [...] CALI BRITO Date: 2021-06-13 07:00 Normal [facility] CBC W MANUAL DIFFon 06-12-19 22 ATYPICAL LYMPH # Normal [facility] Comment on above: Performed By: #### C VDTBH #### [facility] [address] [place] [address] Dr. Jessica Gonzalez ATYPICAL LYMPH % Normal [facility] Comment on above: Performed By: #### C VDTBH #### [facility] [address] [address] [address] Jessica Gonzalez BAND # 1.3 103/ul Critically high 0.0-0.3 [facility] [place] Comment on above: Performed By: #### C VDTBH #### [facility] [address] [address] [address] Jessica Gonzalez BAND % 8 % Critically high 0-5 [facility] [place] Comment on above: Performed By: #### C VDTBH #### [facility] [address] [address] [address] Jessica Gonzalez BASOM # 0.00 103/ul Normal 0.00-0.10 [facility] Comment on above: Performed By: #### C VDTBH #### [facility] [address] [place] [address] Dr. Jessica Gonzalez BASOM % 0.0 % Critically low 0.2-2.0 [facility] Comment on above: Performed By: #### C VDTBH #### [facility] [address] [place] [address] Dr. Jessica Gonzalez BLAST # Normal [facility] Comment on above: Performed By: #### C VDTBH #### [facility] [address] [place] [address] Dr. Jessica Gonzalez BLAST % Normal [facility] Comment on above: Performed By: #### C VDTBH #### [facility] [address] [place] [address] Dr. Jessica Gonzalez CORRECTED WBC Normal 4.0-11.0 [facility] Comment on above: Performed By: #### C VDTBH #### [facility] [address] [place] [address] Dr. Jessica Gonzalez EOS # 0.00 103/ul Normal 0.00-0.70 [facility] Comment on above: Performed By: #### C VDTBH #### [facility] [address] [place] [address] Dr. Jessica Gonzalez EOS% 0.0 % Critically low 0.9-7.0 [facility] Comment on above: Performed By: #### C VDTBH #### [facility] [address] [place] [address] Dr. Jessica Gonzalez HCT 35.4 % Critically low 36.0-48.0 [facility] Comment on above: Performed By: #### C VDTBH #### [facility] [address] [place] [address] Dr. Jessica Gonzalez HGB 11.9 g/dl Critically low 12.0-16.0 [facility] Comment on above: Performed By: #### C VDTBH #### [facility] [address] [address] [address] Jessica Gonzalez LYMPHM # 0.63 103/ul Critically low 1.20-3.80 [facility] Comment on above: Performed By: #### C VDTBH #### [facility] [address] [address] [address] Jessica Gonzalez LYMPHM% 4.0 % Critically low 20.5-60.0 [facility] Comment on above: Performed By: #### C VDTBH #### [facility] [address] [address] [address] Jessica Gonzalez MCH 33.3 pg Normal 26.7-34.0 [facility] Comment on above: Performed By: #### C VDTBH #### [facility] [address] [address] [address] Jessica Gonzalez MCHC 33.6 g/dl Normal 29.9-35.2 [facility] Comment on above: Performed By: #### C VDTBH #### [facility] [address] [address] [address] Jessica Gonzalez MCV 99.2 fL Critically high 81.0-99.0 [facility] Comment on above: Performed By: #### C VDTBH #### [facility] [address] [address] [address] Jessica Gonzalez METAMYELOCYTE # Normal [facility] [place] Comment on above: Performed By: #### C VDTBH #### [facility] [address] [address] [address] Jessica Gonzalez METAMYELOCYTE % Normal [facility] [place] Comment on above: Performed By: #### C VDTBH #### [facility] [address] [address] [address] Jessica Gonzalez MONOM# 0.79 103/ul Normal 0.30-0.80 [facility] Comment on above: Performed By: #### C VDTBH #### [facility] [address] [address] [address] Jessica Gonzalez MONOM% 5.0 % Normal 1.7-12.0 [facility] Comment on above: Performed By: #### C VDTBH #### [facility] [address] [place] [address] Dr. Jessica Gonzalez MPV 9.4 fL Critically low 9.5-13.5 [facility] Comment on above: Performed By: #### C VDTBH #### [facility] [address] [place] [address] Dr. Jessica Gonzalez MYELOCYTE # Normal [facility] Comment on above: Performed By: #### C VDTBH #### [facility] [address] [place] [address] Dr. Jessica Gonzalez MYELOCYTE % Normal [facility] Comment on above: Performed By: #### C VDTBH #### [facility] [address] [place] [address] Dr. Jessica Gonzalez NRBC Normal [facility] Comment on above: Performed By: #### C VDTBH #### [facility] [address] [place] [address] Dr. Jessica Gonzalez PLT 241 103/ul Normal 150-450 [facility] Comment on above: Performed By: #### C VDTBH #### [facility] [address] [place] [address] Dr. Jessica Gonzalez RBC 3.57 106/ul Critically low 4.20-5.40 [facility] [place] Comment on above: Performed By: #### C VDTBH #### [facility] [address] [place] [address] Dr. Jessica Gonzalez RDW 13.5 % Normal 11.0-15.0 [facility] Comment on above: Performed By: #### C VDTBH #### [facility] [address] [place] [address] Dr. Jessica Gonzalez SEG # 13.11 103/ul Critically high 1.40-6.50 [facility] Comment on above: Performed By: #### C VDTBH #### [facility] [address] [place] [address] Dr. Jessica Gonzalez SEG % 83.0 % Critically high 43.0-75.0 [facility] [place] Comment on above: Performed By: #### C VDTBH #### [facility] [address] [place] [address] Dr. Jessica Gonzalez WBC 15.8 103/ul Critically high 4.0-11.[address] [facility] Comment on above: Performed By: #### C VDTBH #### [facility] [address] [place] [address] Dr. Jessica Gonzalez PROF CHEM 8 (BAS METB)on Anion gap [Moles/Vol] 12.6 mmol/L Normal [facility] Comment on above: Performed By: #### B MP #### [facility] [address] [place] [address] Dr. Jessica Gonzalez Calcium [Mass/Vol] 8.9 mg/dL Normal 8.4-10.2 [facility] Comment on above: Performed By: #### B MP #### [facility] [address] [place] [address] Dr. Jessica Gonzalez Chloride [Moles/Vol] 106 mmol/L Normal 98-107 [facility] Comment on above: Performed By: #### B MP #### [facility] [address] [place] [address] Dr. Jessica Gonzalez CO2 [Moles/Vol] 26.0 mmol/L Normal 22.0-30.0 [facility] Comment on above: Performed By: #### B MP #### [facility] [address] [place] [address] Dr. Jessica Gonzalez Creatinine [Mass/Vol] 0.72 mg/dL Normal 0.52-1.04 [facility] Comment on above: Performed By: #### B MP #### [facility] [address] [place] [address] Dr. Jessica Gonzalez EGFR-AF MONTSERRATIAN >60 Normal >=60 [facility] Comment on above: Performed By: #### B MP #### [facility] [address] [address] [address] Jessica Gonzalez EGFR-NON AF MONTSERRATIAN >60 Normal >=60 [facility] Comment on above: Performed By: #### B MP #### [facility] [address] [address] [address] Jessica Gonzalez Glucose [Mass/Vol] 132 mg/dL Critically high 74-106 [facility] Comment on above: Performed By: #### B MP #### [facility] [address] [address] [address] Jessica Gonzalez Potassium [Moles/Vol] 3.6 mmol/L Normal 3.4-5.0 [facility] Comment on above: Performed By: #### B MP #### [facility] [address] [place] [address] [address] Jessica Gonzalez Sodium [Moles/Vol] 141 mmol/L Normal 137-145 [facility] Comment on above: Performed By: #### B MP #### [facility] [address] [address] [address] Jessica Gonzalez Urea nitrogen [Mass/Vol] 21.0 mg/dL Critically high 7.0-17.0 [facility] Comment on above: Performed By: #### B MP #### [facility] [address] [address] [address] Jessica Gonzalez Urea nitrogen/Creatinine [Mass ratio] 29.2 mg/mg Normal [facility] Comment on above: Performed By: #### B MP #### [facility] [address] [address] [address] Jessica Gonzalez CBC AUTO DIFFon 06-11-2021 BASO # 0.0 103/ul Normal 0.0-0.1 [facility] Comment on above: Performed By: #### C VDTBH #### [facility] [address] [address] [address] Jessica Gonzalez Basophils/100 WBC (Bld) 0.1 % Critically low 0.2-2.0 [facility] Comment on above: Performed By: #### C VDTBH #### [facility] [address] [place] [address] Dr. Jessica Gonzalez EO # 0.0 103/ul Normal 0.0-0.7 [facility] Comment on above: Performed By: #### C VDTBH #### [facility] [address] [place] [address] Dr. Jessica Gonzalez Eosinophils/100 WBC (Bld) 0.1 % Critically low 0.9-7.0 [facility] Comment on above: Performed By: #### C VDTBH #### [facility] [address] [place] [address] Dr. Jessica Gonzalez Erythrocyte distribution width (RBC) [Ratio] 13.2 % Normal 11.0-15.0 [facility] Comment on above: Performed By: #### C VDTBH #### [facility] [address] [place] [address] Dr. Jessica Gonzalez Hematocrit (Bld) [Volume fraction] 36.3 % Normal 36.0-48.0 [facility] Comment on above: Performed By: #### C VDTBH #### [facility] [address] [place] [address] Dr. Jessica Gonzalez Hemoglobin (Bld) [Mass/Vol] 12.1 g/dL Normal 12.0-16.0 [facility] Comment on above: Performed By: #### C VDTBH #### [facility] [address] [place] [address] Dr. Jessica Gonzalez IG # 1.99 10e3/ul Critically high 0.00-0.03 [facility] Comment on above: Performed By: #### C VDTBH #### [facility] [address] [place] [address] Dr. Jessica Gonzalez IG % 11.1 % Critically high 0.0-0.5 [facility] [place] Comment on above: Performed By: #### C VDTBH #### [facility] [address] [place] [address] Dr. Jessica Gonzalez LYMPH # 1.1 103/ul Critically low 1.2-3.8 [facility] Comment on above: Performed By: #### C VDTBH #### [facility] [address] [place] [address] Dr. Jessica Gonzalez Lymphocytes/100 WBC (Bld) 6.1 % Critically low 20.5-60.0 [facility] Comment on above: Performed By: #### C VDTBH #### [facility] [address] [place] [address] Dr. Jessica Gonzalez MANUAL DIFF REQ NO Normal [facility] [place] Comment on above: Performed By: #### C VDTBH #### [facility] [address] [place] [address] Dr. Jessica Gonzalez MCH (RBC) [Entitic mass] 33.0 pg Normal 26.7-34.0 [facility] Comment on above: Performed By: #### C VDTBH #### [facility] [address] [place] [address] Dr. Jessica Gonzalez MCHC (RBC) [Mass/Vol] 33.3 g/dL Normal 29.9-35.2 [facility] Comment on above: Performed By: #### C VDTBH #### [facility] [address] [place] [address] Dr. Jessica Gonzalez MCV (RBC) [Entitic vol] 98.9 fL Normal 81.0-99.0 [facility] Comment on above: Performed By: #### C VDTBH #### [facility] [address] [place] [address] Dr. Jessica Gonzalez MONO # 0.5 103/ul Normal 0.3-0.8 [facility] Comment on above: Performed By: #### C VDTBH #### [facility] [address] [place] [address] Dr. Jessica Gonzalez Monocytes/100 WBC (Bld) 2.8 % Normal 1.7-12.0 [facility] Comment on above: Performed By: #### C VDTBH #### [facility] [address] [place] [address] Dr. Jessica Gonzalez NEUT # 14.3 103/ul Critically high 1.4-6.5 [facility] Comment on above: Performed By: #### C VDTBH #### [facility] [address] [address] [address] Jessica Gonzalez Neutrophils/100 WBC (Bld) 79.8 % Critically high 43.0-75.0 [facility] Comment on above: Performed By: #### C VDTBH #### [facility] [address] [address] [address] Jessica Gonzalez Platelet mean volume (Bld) [Entitic vol] 9.6 fL Normal 9.5-13.5 [facility] Comment on above: Performed By: #### C VDTBH #### [facility] [address] [address] [address] Jessica Gonzalez PLT 237 103/ul Normal 150-450 [facility] Comment on above: Performed By: #### C VDTBH #### [facility] [address] [address] [address] Jessica Gonzalez RBC 3.67 106/ul Critically low 4.20-5.40 [facility] Comment on above: Performed By: #### C VDTBH #### [facility] [address] [address] [address] Jessica Gonzalez WBC 18.0 103/ul Critically high 4.0-11.[address] [facility] Comment on above: Performed By: #### C VDTBH #### [facility] [address] [address] [address] Jessica Gonzalez CULTURE SPUTUMon 06-11-2021 CULTURE SPUTUM Culture Observations: Normal respiratory eugenio also seen. Isolate 1 Staphylococcus aureus Moderate growth of ORGANISM 1 Staphylococcus aureus ANTIBIOTIC M.I.C RX STATUS Beta-Lactamase Pos POS F Cefoxitin Screen Neg NEG F Benzylpenicillin >=0.5 R F Gentamicin <=0.5 S F Ciprofloxacin 4 R F Levofloxacin 4 I F Moxifloxacin 1 S F Inducible Clindamycin Resistance Neg NEG F Erythromycin >=8 R F Clindamycin <=0.25 S F Quinupristin/Dalfopr istin <=0.25 S F Linezolid 1 S F Vancomycin <=0.5 S F Tetracycline <=1 S F Rifampicin <=0.5 S F Trimethoprim/Sulfame thoxazole <=10 S F Oxacillin <=0.25 S F Normal [facility] Comment on above: Performed By: #### B MP #### [facility] [address] [place] [address] Dr. Jessica Gonzalez PROF CHEM 8 (BAS METB)on Anion gap [Moles/Vol] 12.5 mmol/L Normal [facility] Comment on above: Performed By: #### B MP #### [facility] [address] [place] [address] Dr. Jessica Gonzalez Calcium [Mass/Vol] 9.2 mg/dL Normal 8.4-10.2 [facility] Comment on above: Performed By: #### B MP #### [facility] [address] [place] [address] Dr. Jessica Gonzalez Chloride [Moles/Vol] 107 mmol/L Normal 98-107 [facility] Comment on above: Performed By: #### B MP #### [facility] [address] [place] [address] Dr. Jessica Gonzalez CO2 [Moles/Vol] 25.3 mmol/L Normal 22.0-30.[address] [facility] Comment on above: Performed By: #### B MP #### [facility] [address] [place] [address] Dr. Jessica Gonzalez Creatinine [Mass/Vol] 0.77 mg/dL Normal 0.52-1.04 [facility] Comment on above: Performed By: #### B MP #### [facility] [address] [place] [address] Dr. Jessica Gonzalez EGFR-AF MONTSERRATIAN >60 Normal >=60 [facility] Comment on above: Performed By: #### B MP #### [facility] [address] [place] [address] Dr. Jessica Gonzalez EGFR-NON AF MONTSERRATIAN >60 Normal >=60 [facility] Comment on above: Performed By: #### B MP #### [facility] [address] [place] [address] Dr. Jessica Gonzalez Glucose [Mass/Vol] 163 mg/dL Critically high 74-106 [facility] Comment on above: Performed By: #### B MP #### [facility] [address] [address] [address] Jessica Gonzalez Potassium [Moles/Vol] 3.8 mmol/L Normal 3.4-5.0 [facility] Comment on above: Performed By: #### B MP #### [facility] [address] [address] [address] Jessica Gonzalez Sodium [Moles/Vol] 141 mmol/L Normal 137-145 [facility] Comment on above: Performed By: #### B MP #### [facility] [address] [place] [address] Dr. Jessica Gonzalez Urea nitrogen [Mass/Vol] 19.0 mg/dL Critically high 7.0-17.0 [facility] Comment on above: Performed By: #### B MP #### [facility] [address] [place] [address] Dr. Jessica Gonzalez Urea nitrogen/Creatinine [Mass ratio] 24.7 mg/mg Normal [facility] Comment on above: Performed By: #### B MP #### [facility] [address] [place] [address] Dr. Jessica Gonzalez VANCOMYCIN TROUGHon 06-11-19 22 VANCOMYCIN TROUGH 9.1 ug/ml Normal 5.0-20.0 [facility] Comment on above: Performed By: #### V ANCT #### [facility] [address] [place] [address] Dr. Jessica Gonzalez CBC W MANUAL DIFFon 06-10-19 22 ATYPICAL LYMPH # Normal [facility] Comment on above: Performed By: #### B MP #### [facility] [address] [place] [address] Dr. Jessica Gonzalez ATYPICAL LYMPH % Normal [facility] Comment on above: Performed By: #### B MP #### [facility] [address] [place] [address] Dr. Jessica Gonzalez BAND # 1.2 103/ul Critically high 0.0-0.3 [facility] Comment on above: Performed By: #### B MP #### [facility] [address] [address] [address] Jessica Gonzalez BAND % 6 % Critically high 0-5 [facility] Comment on above: Performed By: #### B MP #### [facility] [address] [address] [address] Jessica Gonzalez BASOM # 0.00 103/ul Normal 0.00-0.10 [facility] Comment on above: Performed By: #### B MP #### [facility] [address] [address] [address] Jessica Gonzalez BASOM % 0.0 % Critically low 0.2-2.0 [facility] Comment on above: Performed By: #### B MP #### [facility] [address] [place] [address] Dr. Jessica Gonzalez BLAST # Normal [facility] Comment on above: Performed By: #### B MP #### [facility] [address] [address] [address] Jessica Gonzalez BLAST % Normal [facility] Comment on above: Performed By: #### B MP #### [facility] [address] [place] [address] Dr. Jessica Gonzalez CORRECTED WBC Normal 4.0-11.0 [facility] Comment on above: Performed By: #### B MP #### [facility] [address] [place] [address] Dr. Jessica Gonzalez EOS # 0.00 103/ul Normal 0.00-0.70 [facility] Comment on above: Performed By: #### B MP #### [facility] [address] [place] [address] Dr. Jessica Gonzalez EOS% 0.0 % Critically low 0.9-7.0 [facility] Comment on above: Performed By: #### B MP #### [facility] [address] [place] [address] Dr. Jessica Gonzalez HCT 34.2 % Critically low 36.0-48.0 [facility] Comment on above: Performed By: #### B MP #### [facility] [address] [address] [address] Jessica Gonzalez HGB 11.6 g/dl Critically low 12.0-16.0 [facility] Comment on above: Performed By: #### B MP #### [facility] [address] [address] [address] Jessica Gonzalez LYMPHM # 0.60 103/ul Critically low 1.20-3.80 [facility] [place] Comment on above: Performed By: #### B MP #### [facility] [address] [place] [address] Dr. Jessica Gonzalez LYMPHM% 3.0 % Critically low 20.5-60.0 [facility] Comment on above: Performed By: #### B MP #### [facility] [address] [place] [address] Dr. Jessica Gonzalez MCH 33.5 pg Normal 26.7-34.0 [facility] Comment on above: Performed By: #### B MP #### [facility] [address] [place] [address] Dr. Jessica Gonzalez MCHC 33.9 g/dl Normal 29.9-35.2 [facility] Comment on above: Performed By: #### B MP #### [facility] [address] [place] [address] Dr. Jessica Gonzalez MCV 98.8 fL Normal 81.0-99.0 [facility] Comment on above: Performed By: #### B MP #### [facility] [address] [place] [address] Dr. Jessica Gonzalez METAMYELOCYTE # 0.2 103/ul Normal [facility] [place] Comment on above: Performed By: #### B MP #### [facility] [address] [place] [address] Dr. Jessica Gonzalez METAMYELOCYTE % 1 % Normal [facility] [place] Comment on above: Performed By: #### B MP #### [facility] [address] [place] [address] Dr. Jessica Gonzalez MONOM# 0.60 103/ul Normal 0.30-0.80 [facility] Comment on above: Performed By: #### B MP #### [facility] [address] [address] [address] Jessica Gonzalez MONOM% 3.0 % Normal 1.7-12.0 [facility] Comment on above: Performed By: #### B MP #### [facility] [address] [address] [address] Jessica Gonzalez MPV 9.7 fL Normal 9.5-13.5 [facility] Comment on above: Performed By: #### B MP #### [facility] [address] [address] [address] Jessica Gonzalez MYELOCYTE # Normal [facility] Comment on above: Performed By: #### B MP #### [facility] [address] [place] [address] Dr. Jessica Gonzalez MYELOCYTE % Normal [facility] Comment on above: Performed By: #### B MP #### [facility] [address] [place] [address] Dr. Jessica Gonzalez NRBC Normal [facility] Comment on above: Performed By: #### B MP #### [facility] [address] [place] [address] Dr. Jessica Gonzalez PLT 233 103/ul Normal 150-450 [facility] Comment on above: Performed By: #### B MP #### [facility] [address] [place] [address] Dr. Jessica Gonzalez RBC 3.46 106/ul Critically low 4.20-5.40 [facility] Comment on above: Performed By: #### B MP #### [facility] [address] [place] [address] Dr. Jessica Gonzalez RDW 13.1 % Normal 11.0-15.0 [facility] Comment on above: Performed By: #### B MP #### [facility] [address] [place] [address] Dr. Jessica Gonzalez SEG # 17.31 103/ul Critically high 1.40-6.50 [facility] Comment on above: Performed By: #### B MP #### [facility] [address] [address] [address] Jessica Gonzalez SEG % 87.0 % Critically high 43.0-75.0 [facility] Comment on above: Performed By: #### B MP #### [facility] [address] [address] [address] Jessica Gonzalez WBC 19.9 103/ul Critically high 4.0-11.[address] [facility] Comment on above: Performed By: #### B MP #### [facility] [address] [address] [address] Jessica Gonzalez PROF CHEM 8 (BAS METB)on Anion gap [Moles/Vol] 11.7 mmol/L Normal [facility] Comment on above: Performed By: #### C VDTBH #### [facility] [address] [place] [address] Dr. Jessica Gonzalez Calcium [Mass/Vol] 9.5 mg/dL Normal 8.4-10.2 [facility] Comment on above: Performed By: #### C VDTBH #### [facility] [address] [address] [address] Jessica Gonzalze Chloride [Moles/Vol] 104 mmol/L Normal 98-107 [facility] Comment on above: Performed By: #### C VDTBH #### [facility] Laboratory [address] [address] [address] Jessica Gonzalez CO2 [Moles/Vol] 27.0 mmol/L Normal 22.0-30.0 [facility] Comment on above: Performed By: #### C VDTBH #### [facility] [address] [address] [address] Jessica Gonzalez Creatinine [Mass/Vol] 0.69 mg/dL Normal 0.52-1.04 [facility] Comment on above: Performed By: #### C VDTBH #### [facility] [address] [address] [address] Jessica Gonzalez EGFR-AF MONTSERRATIAN >60 Normal >=[address] [facility] Comment on above: Performed By: #### C VDTBH #### [facility] [address] [address] [address] Jessica Gonzalez EGFR-NON AF MONTSERRATIAN >60 Normal >=60 [facility] Comment on above: Performed By: #### C VDTBH #### [facility] [address] [address] [address] Jessica Gonzalez Glucose [Mass/Vol] 163 mg/dL Critically high 74-106 [facility] Comment on above: Performed By: #### C VDTBH #### [facility] [address] [address] [address] Jessica Gonzalez Potassium [Moles/Vol] 3.7 mmol/L Normal 3.4-5.0 [facility] Comment on above: Performed By: #### C VDTBH #### [facility] [address] [place] [address] Dr. Jessica Gonzalez Sodium [Moles/Vol] 139 mmol/L Normal 137-145 [facility] Comment on above: Performed By: #### C VDTBH #### [facility] [address] [address] [address] Jessica Gonzalez Urea nitrogen [Mass/Vol] 20.0 mg/dL Critically high 7.0-17.0 [facility] Comment on above: Performed By: #### C VDTBH #### [facility] [address] [address] [address] Jessica Gonzalez Urea nitrogen/Creatinine [Mass ratio] 29.0 mg/mg Normal [facility] Comment on above: Performed By: #### C VDTBH #### [facility] [address] [address] [address] Jessica Gonzalez XR CHEST 2 Von [...] CALI BRITO Date: 2021-06-10 07:02 Normal [facility] CBC AUTO DIFFon 06-09-2021 BASO # 0.1 103/ul Normal 0.0-0.1 [facility] Comment on above: Performed By: #### C BC #### [facility] [address] [address] [address] Jessica Gonzalez Basophils/100 WBC (Bld) 0.4 % Normal 0.2-2.0 [facility] Comment on above: Performed By: #### C BC #### [facility] [address] [place] [address] Dr. Jessica Gonzalez EO # 0.0 103/ul Normal 0.0-0.7 [facility] Comment on above: Performed By: #### C BC #### [facility] [address] [place] [address] Dr. Jessica Gonzalez Eosinophils/100 WBC (Bld) 0.0 % Critically low 0.9-7.0 [facility] Comment on above: Performed By: #### C BC #### [facility] [address] [place] [address] Dr. Jessica Gonzalez Erythrocyte distribution width (RBC) [Ratio] 12.8 % Normal 11.0-15.0 [facility] Comment on above: Performed By: #### C BC #### [facility] [address] [place] [address] Dr. Jessica Gonzalez Hematocrit (Bld) [Volume fraction] 37.2 % Normal 36.0-48.0 [facility] Comment on above: Performed By: #### C BC #### [facility] [address] [place] [address] Dr. Jessica Gonzalez Hemoglobin (Bld) [Mass/Vol] 12.6 g/dL Normal 12.0-16.0 [facility] Comment on above: Performed By: #### C BC #### [facility] [address] [place] [address] Dr. Jessica Gonzalez IG # 0.22 10e3/ul Critically high 0.00-0.03 [facility] Comment on above: Performed By: #### C BC #### [facility] [address] [place] [address] Dr. Jessica Gonzalez IG % 1.2 % Critically high 0.0-0.5 [facility] Comment on above: Performed By: #### C BC #### [facility] [address] [place] [address] Dr. Jessica Gonzalez LYMPH # 0.8 103/ul Critically low 1.2-3.8 [facility] Comment on above: Performed By: #### C BC #### [facility] [address] [place] [address] Dr. Jessica Gonzalez Lymphocytes/100 WBC (Bld) 4.2 % Critically low 20.5-60.0 [facility] Comment on above: Performed By: #### C BC #### [facility] [address] [place] [address] Dr. Jessica Gonzalez MANUAL DIFF REQ NO Normal [facility] Comment on above: Performed By: #### C BC #### [facility] [address] [place] [address] Dr. Jessica Gonzalez MCH (RBC) [Entitic mass] 33.4 pg Normal 26.7-34.0 [facility] Comment on above: Performed By: #### C BC #### [facility] [address] [place] [address] Dr. Jessica Gonzalez MCHC (RBC) [Mass/Vol] 33.9 g/dL Normal 29.9-35.2 [facility] Comment on above: Performed By: #### C BC #### [facility] [address] [place] [address] Dr. Jessica Gonzalez MCV (RBC) [Entitic vol] 98.7 fL Normal 81.0-99.0 [facility] Comment on above: Performed By: #### C BC #### [facility] [address] [place] [address] Dr. Jessica Gonzalez MONO # 0.4 103/ul Normal 0.3-0.8 [facility] Comment on above: Performed By: #### C BC #### [facility] [address] [place] [address] Dr. Jessica Gonzalez Monocytes/100 WBC (Bld) 2.3 % Normal 1.7-12.0 [facility] Comment on above: Performed By: #### C BC #### [facility] [address] [place] [address] Dr. Jessica Gonzalez NEUT # 17.0 103/ul Critically high 1.4-6.[address] [facility] Comment on above: Performed By: #### C BC #### [facility] [address] [place] [address] Dr. Jessica Gonzalez Neutrophils/100 WBC (Bld) 91.9 % Critically high 43.0-75.0 [facility] Comment on above: Performed By: #### C BC #### [facility] [address] [place] [address] Dr. Jessica Gonzalez Platelet mean volume (Bld) [Entitic vol] 9.9 fL Normal 9.5-13.5 [facility] Comment on above: Performed By: #### C BC #### [facility] [address] [place] [address] Dr. Jessica Gonzalez PLT 247 103/ul Normal 150-450 [facility] Comment on above: Performed By: #### C BC #### [facility] [address] [place] [address] Dr. Jessica Gonzalez RBC 3.77 106/ul Critically low 4.20-5.40 [facility] [place] Comment on above: Performed By: #### C BC #### [facility] [address] [place] [address] Dr. Jessica Gonzalez WBC 18.5 103/ul Critically high 4.0-11.0 [facility] Comment on above: Performed By: #### C BC #### [facility] [address] [place] [address] Dr. Jessica Gonzalez PROF CHEM 8 (BAS METB)on Anion gap [Moles/Vol] 15.3 mmol/L Normal [facility] Comment on above: Performed By: #### C VDTBH #### [facility] [address] [place] [address] Dr. Jessica Gonzalez Calcium [Mass/Vol] 9.8 mg/dL Normal 8.4-10.2 [facility] Comment on above: Performed By: #### C VDTBH #### [facility] [address] [place] [address] Dr. Jessica Gonzalez Chloride [Moles/Vol] 102 mmol/L Normal 98-107 [facility] Comment on above: Performed By: #### C VDTBH #### [facility] [address] [place] [address] Dr. Jessica Gonzalez CO2 [Moles/Vol] 24.1 mmol/L Normal 22.0-30.[address] [facility] Comment on above: Performed By: #### C VDTBH #### [facility] [address] [place] [address] Dr. Jessica Gonzalez Creatinine [Mass/Vol] 0.83 mg/dL Normal 0.52-1.04 [facility] Comment on above: Performed By: #### C VDTBH #### [facility] [address] [place] [address] Dr. Jessica Gonzalez EGFR-AF MONTSERRATIAN >60 Normal >=[address] [facility] Comment on above: Performed By: #### C VDTBH #### [facility] [address] [place] [address] Dr. Jessica Gonzalez EGFR-NON AF MONTSERRATIAN >60 Normal >=60 [facility] Comment on above: Performed By: #### C VDTBH #### [facility] [address] [place] [address] Dr. Jessica Gonzalez Glucose [Mass/Vol] 165 mg/dL Critically high 74-106 [facility] Comment on above: Performed By: #### C VDTBH #### [facility] [address] [place] [address] Dr. Jessica Gonzalez Potassium [Moles/Vol] 3.4 mmol/L Normal 3.4-5.0 [facility] Comment on above: Performed By: #### C VDTBH #### [facility] [address] [place] [address] Dr. Jessica Gonzalez Sodium [Moles/Vol] 138 mmol/L Normal 137-145 [facility] Comment on above: Performed By: #### C VDTBH #### [facility] [address] [place] [address] Dr. Jessica Gonzalez Urea nitrogen [Mass/Vol] 21.0 mg/dL Critically high 7.0-17.0 [facility] Comment on above: Performed By: #### C VDTBH #### [facility] [address] [place] [address] Dr. Jessica Gonzalez Urea nitrogen/Creatinine [Mass ratio] 25.3 mg/mg Normal [facility] Comment on above: Performed By: #### C VDTBH #### [facility] [address] [place] [address] Dr. Jessica Gonzalez RESPIRATORY PANEL PLUSon Adenovirus Not detected Normal NOT DETECTED [facility] Comment on above: Performed By: #### S PUTGS #### [facility] [address] [place] [address] Dr. Jessica Jack. Parapertusis Not detected Normal NOT DETECTED [facility] Comment on above: Performed By: #### S PUTGS #### [facility] [address] [place] [address] Dr. Jessica Jack. Pertussis Not detected Normal NOT DETECTED [facility] Comment on above: Performed By: #### S PUTGS #### [facility] [address] [place] [address] Dr. Jessica Gonzalez Chlamydia Pneumoniae Not detected Normal NOT DETECTED [facility] Comment on above: Performed By: #### S PUTGS #### [facility] [address] [place] [address] Dr. Jessica Gonzalez Coronavirus 229E Not detected Normal NOT DETECTED [facility] Comment on above: Performed By: #### S PUTGS #### [facility] [address] [place] [address] Dr. Jessica Gonzalez Coronavirus HKU1 Not detected Normal NOT DETECTED [facility] Comment on above: Performed By: #### S PUTGS #### [facility] [address] [address] [address] Jessica Gonzalez Coronavirus NL63 Not detected Normal NOT DETECTED [facility] Comment on above: Performed By: #### S PUTGS #### [facility] [address] [place] [address] Dr. Jessica Gonzalez Coronavirus OC43 Not detected Normal NOT DETECTED [facility] Comment on above: Performed By: #### S PUTGS #### [facility] [address] [place] [address] Dr. Jessica Gonzalez Influenza A H1 2009 Not detected Normal NOT DETECTED [facility] Comment on above: Performed By: #### S PUTGS #### [facility] [address] [place] [address] Dr. Jessica Gonzalez Influenza A H3 Not detected Normal NOT DETECTED [facility] Comment on above: Performed By: #### S PUTGS #### [facility] [address] [place] [address] Dr. Jessica Gonzalez Influenza B Not detected Normal NOT DETECTED [facility] [place] Comment on above: Performed By: #### S PUTGS #### [facility] [address] [place] [address] Dr. Jessica Gonzalez Metapneumovirus Not detected Normal NOT DETECTED [facility] Comment on above: Performed By: #### S PUTGS #### [facility] [address] [place] [address] Dr. Jessica Gonzalez Mycoplas. Pneumoniae Not detected Normal NOT DETECTED [facility] Comment on above: Performed By: #### S PUTGS #### [facility] [address] [place] [address] Dr. Jessica Gonzalez Parainfluenza 1 Not detected Normal NOT DETECTED [facility] Comment on above: Performed By: #### S PUTGS #### [facility] [address] [place] [address] Dr. Jessica Gonzalez Parainfluenza 2 Not detected Normal NOT DETECTED [facility] Comment on above: Performed By: #### S PUTGS #### [facility] [address] [place] [address] Dr. Jessica Gonzalez Parainfluenza 3 Not detected Normal NOT DETECTED [facility] Comment on above: Performed By: #### S PUTGS #### [facility] [address] [place] [address] Dr. Jessica Gonzalez Parainfluenza 4 Not detected Normal NOT DETECTED [facility] Comment on above: Performed By: #### S PUTGS #### [facility] [address] [place] [address] Dr. Jessica Gonzalez Rhino/Enterovirus Not detected Normal NOT DETECTED [facility] Comment on above: Performed By: #### S PUTGS #### [facility] [address] [place] [address] Dr. Jessica Gonzalez RP2 Header 1 RESPIRATORY PANEL: VIRUSES Normal [facility] Comment on above: Performed By: #### S PUTGS #### [facility] [address] [place] [address] Dr. Jessica Gonzalez RP2 Header 2 RESPIRATORY PANEL: BACTERIA Normal [facility] Comment on above: Performed By: #### S PUTGS #### [facility] [address] [place] [address] Dr. Jessica Gonzalez RSV Not detected Normal NOT DETECTED [facility] Comment on above: Performed By: #### S PUTGS #### [facility] [address] [place] [address] Dr. Jessica Gonzalez SARS-CoV-2 (COVID-19) RNA MASON+probe Ql (Unsp spec) Not detected Normal NOT DETECTED [facility] Comment on above: Performed By: #### S PUTGS #### [facility] [address] [place] [address] Dr. Jessica Gonzalez CBC W MANUAL DIFFon 06-08-19 22 ATYPICAL LYMPH # Normal [facility] Comment on above: Performed By: #### C VDTBH #### [facility] [address] [place] [address] Dr. Jessica Gonzalez ATYPICAL LYMPH % Normal [facility] Comment on above: Performed By: #### C VDTBH #### [facility] [address] [place] [address] Dr. Jessica Gonzalez BAND # 1.2 103/ul Critically high 0.0-0.3 [facility] Comment on above: Performed By: #### C VDTBH #### [facility] [address] [place] [address] Dr. Jessica Gonzalez BAND % 7 % Critically high 0-5 [facility] Comment on above: Performed By: #### C VDTBH #### [facility] [address] [place] [address] Dr. Jessica Gonzalez BASOM # 0.00 103/ul Normal 0.00-0.10 [facility] Comment on above: Performed By: #### C VDTBH #### [facility] [address] [place] [address] Dr. Jessica Gonzalez BASOM % 0.0 % Critically low 0.2-2.0 [facility] Comment on above: Performed By: #### C VDTBH #### [facility] [address] [place] [address] Dr. Jessica Gonzalez BLAST # Normal [facility] Comment on above: Performed By: #### C VDTBH #### [facility] [address] [place] [address] Dr. Jessica Gonzalez BLAST % Normal [facility] Comment on above: Performed By: #### C VDTBH #### [facility] [address] [place] [address] Dr. Jessica Gonzalez CORRECTED WBC Normal 4.0-11.0 [facility] Comment on above: Performed By: #### C VDTBH #### [facility] [address] [place] [address] Dr. Jessica Gonzalez EOS # 0.00 103/ul Normal 0.00-0.70 [facility] Comment on above: Performed By: #### C VDTBH #### [facility] [address] [place], [place] [id number] Dr. Jessica Gonzalez EOS% 0.0 % Critically low 0.9-7.0 [facility] Comment on above: Performed By: #### C VDTBH #### [facility] [address] [place] [address] Dr. Jessica Gonzalez HCT 37.1 % Normal 36.0-48.0 [facility] Comment on above: Performed By: #### C VDTBH #### [facility] [address] [place] [address] Dr. Jessica Gonzalez HGB 12.3 g/dl Normal 12.0-16.0 [facility] Comment on above: Performed By: #### C VDTBH #### [facility] [address] [place] [address] Dr. Jessica Gonzalez LYMPHM # 1.17 103/ul Critically low 1.20-3.80 [facility] Comment on above: Performed By: #### C VDTBH #### [facility] [address] [place] [address] Dr. Jessica Gonzalez LYMPHM% 7.0 % Critically low 20.5-60.0 [facility] Comment on above: Performed By: #### C VDTBH #### [facility] [address] [place] [address] Dr. Jessica Gonzalez MCH 33.2 pg Normal 26.7-34.0 [facility] Comment on above: Performed By: #### C VDTBH #### [facility] [address] [place] [address] Dr. Jessica Gonzalez MCHC 33.2 g/dl Normal 29.9-35.2 [facility] Comment on above: Performed By: #### C VDTBH #### [facility] [address] [place] [address] Dr. Jessica Gonzalez MCV 100.3 fL Critically high 81.0-99.0 [facility] Comment on above: Performed By: #### C VDTBH #### [facility] [address] [place] [address] Dr. Jessica Gonzalez METAMYELOCYTE # Normal [facility] Comment on above: Performed By: #### C VDTBH #### [facility] [address] [place] [address] Dr. Jessica Gonzalez METAMYELOCYTE % Normal [facility] Comment on above: Performed By: #### C VDTBH #### [facility] [address] [address] [address] Jessica Gonzalez MONOM# 0.67 103/ul Normal 0.30-0.80 [facility] Comment on above: Performed By: #### C VDTBH #### [facility] [address] [place] [address] Dr. Jessica Gonzalez MONOM% 4.0 % Normal 1.7-12.0 [facility] Comment on above: Performed By: #### C VDTBH #### [facility] [address] [place] [address] Dr. Jessica Gonzalez MPV 9.5 fL Normal 9.5-13.5 [facility] Comment on above: Performed By: #### C VDTBH #### [facility] [address] [place] [address] Dr. Jessica Gonzalez MYELOCYTE # Normal [facility] Comment on above: Performed By: #### C VDTBH #### [facility] [address] [place] [address] Dr. Jessica Gonzalez MYELOCYTE % Normal [facility] Comment on above: Performed By: #### C VDTBH #### [facility] [address] [place] [address] Dr. Jessica Gonzalez NRBC Normal [facility] Comment on above: Performed By: #### C VDTBH #### [facility] [address] [place] [address] Dr. Jessica Gonzalez PLT 206 103/ul Normal 150-450 [facility] Comment on above: Performed By: #### C VDTBH #### [facility] [address] [place] [address] Dr. Jessica Gonzalez RBC 3.70 106/ul Critically low 4.20-5.40 [facility] Comment on above: Performed By: #### C VDTBH #### [facility] [address] [address] [address] Jessica Gonzalez RDW 12.4 % Normal 11.0-15.0 [facility] Comment on above: Performed By: #### C VDTBH #### [facility] [address] [address] [address] Jessica Gonzalez SEG # 13.69 103/ul Critically high 1.40-6.50 [facility] Comment on above: Performed By: #### C VDTBH #### [facility] [address] [address] [address] Jessica Gonzalez SEG % 82.0 % Critically high 43.0-75.0 [facility] [place] Comment on above: Performed By: #### C VDTBH #### [facility] [address] [address] [address] Jessica Gonzalez WBC 16.7 103/ul Critically high 4.0-11.[address] [facility] Comment on above: Performed By: #### C VDTBH #### [facility] [address] [address] [address] Jessica Gonzalez PROF CHEM 8 (BAS METB)on Anion gap [Moles/Vol] 14.4 mmol/L Normal [facility] Comment on above: Performed By: #### S PUTGS #### [facility] [address] [address] [address] Jessica Gonzalez Calcium [Mass/Vol] 9.8 mg/dL Normal 8.4-10.2 [facility] Comment on above: Performed By: #### S PUTGS #### [facility] [address] [address] [address] Jessica Gonzalez Chloride [Moles/Vol] 100 mmol/L Normal 98-107 [facility] Comment on above: Performed By: #### S PUTGS #### [facility] [address] [address] [address] Jessica Gonzalez CO2 [Moles/Vol] 25.7 mmol/L Normal 22.0-30.0 [facility] Comment on above: Performed By: #### S PUTGS #### [facility] [address] [address] [address] Jessica Gonzalez Creatinine [Mass/Vol] 0.87 mg/dL Normal 0.52-1.04 [facility] Comment on above: Performed By: #### S PUTGS #### [facility] [address] [address] [address] Jessica Gonzalez EGFR-AF MONTSERRATIAN >60 Normal >=[address] [facility] Comment on above: Performed By: #### S PUTGS #### [facility] [address] [address] [address] Jessica Gonzalez EGFR-NON AF MONTSERRATIAN >60 Normal >=60 [facility] Comment on above: Performed By: #### S PUTGS #### [facility] [address] [place] [address] Dr. Jessica Gonzalez Glucose [Mass/Vol] 194 mg/dL Critically high 74-106 [facility] Comment on above: Performed By: #### S PUTGS #### [facility] [address] [address] [address] Jessica Gonzalez Potassium [Moles/Vol] 3.1 mmol/L Critically low 3.4-5.0 [facility] Comment on above: Performed By: #### S PUTGS #### [facility] [address] [address] [address] Jessica Gonzalez Sodium [Moles/Vol] 137 mmol/L Normal 137-145 [facility] Comment on above: Performed By: #### S PUTGS #### [facility] [address] [address] [address] Jessica Gonzalez Urea nitrogen [Mass/Vol] 17.0 mg/dL Normal 7.0-17.0 [facility] Comment on above: Performed By: #### S PUTGS #### [facility] [address] [address] [address] Jessica Gonzalez Urea nitrogen/Creatinine [Mass ratio] 19.5 mg/mg Normal [facility] Comment on above: Performed By: #### S PUTGS #### [facility] [address] [address] [address] Jessica Gonzalez SPUTUM GRAM STAINon 06-08-19 COMMENTS Normal [facility] [facility] Comment on above: Performed By: #### S PUTGS #### [facility] [address] [address] [address] Jessica Gonzalez DIPHTHEROIDS Normal [facility] Comment on above: Performed By: #### S PUTGS #### [facility] [address] [address] [address] Jessica Gonzalez EPITHELIALS <25 Normal [facility] Comment on above: Performed By: #### S PUTGS #### [facility] [address] [address] [address] Jessica Gonzalez FUNGAL ELEMENTS Normal [facility] Comment on above: Performed By: #### S PUTGS #### [facility] [address] [address] [address] Jessica Gonzalez GRAM NEG BACILLI [facility] Comment on above: Performed By: #### S PUTGS #### [facility] [address] [address] [address] Jessica WILLIS NEG DIPPLOCOCCI Normal [facility] Comment on above: Performed By: #### S PUTGS #### [facility] [address] [address] [address] Jessica WILLIS POS BACILLI RARE [facility] Comment on above: Performed By: #### S PUTGS #### [facility] [address] [address] [address] Jessica Gonzalez GRAM POSITIVE COCCI FEW Normal [facility] Comment on above: Performed By: #### S PUTGS #### [facility] [address] [address] [address] Jessica Gonzalez WBC (Bld) [#/Vol] 10*3/uL Normal [facility] Comment on above: Performed By: #### S PUTGS #### [facility] [address] [address] [address] Jessica Gonzalez XR CHEST 2 Von [...] CALI BRITO Date: 2021-06-08 06:56 Normal [facility] CBC AUTO DIFFon 06-07-2021 BASO # 0.0 103/ul Normal 0.0-0.1 [facility] Comment on above: Performed By: #### C BC #### [facility] [address] [place] [address] Dr. Jessica Gonzalez Basophils/100 WBC (Bld) 0.3 % Normal 0.2-2.0 [facility] Comment on above: Performed By: #### C BC #### [facility] [address] [place] [address] Dr. Jessica Gonzalez EO # 0.1 103/ul Normal 0.0-0.7 [facility] Comment on above: Performed By: #### C BC #### [facility] [address] [place] [address] Dr. Jessica Gonzalez Eosinophils/100 WBC (Bld) 0.5 % Critically low 0.9-7.0 [facility] Comment on above: Performed By: #### C BC #### [facility] [address] [place] [address] Dr. Jessica Gonzalez Erythrocyte distribution width (RBC) [Ratio] 12.4 % Normal 11.0-15.0 [facility] Comment on above: Performed By: #### C BC #### [facility] [address] [place] [address] Dr. Jessica Gonzalez Hematocrit (Bld) [Volume fraction] 40.5 % Normal 36.0-48.0 [facility] Comment on above: Performed By: #### C BC #### [facility] [address] [address] [address] Jessica Gonzalez Hemoglobin (Bld) [Mass/Vol] 14.0 g/dL Normal 12.0-16.0 [facility] Comment on above: Performed By: #### C BC #### [facility] [address] [place] [address] Dr. Jessica Gonzalez IG # 0.26 10e3/ul Critically high 0.00-0.03 [facility] Comment on above: Performed By: #### C BC #### [facility] [address] [place] [address] Dr. Jessica Gonzalez IG % 1.7 % Critically high 0.0-0.5 [facility] Comment on above: Performed By: #### C BC #### [facility] [address] [place] [address] Dr. Jessica Gonzalez LYMPH # 0.7 103/ul Critically low 1.2-3.8 [facility] Comment on above: Performed By: #### C BC #### [facility] [address] [place] [address] Dr. Jessica Gonzalez Lymphocytes/100 WBC (Bld) 4.6 % Critically low 20.5-60.0 [facility] Comment on above: Performed By: #### C BC #### [facility] [address] [place] [address] Dr. Jessica Gonzalez MANUAL DIFF REQ NO Normal [facility] Comment on above: Performed By: #### C BC #### [facility] [address] [place] [address] Dr. Jessica Gonzalez MCH (RBC) [Entitic mass] 34.2 pg Critically high 26.7-34.0 [facility] Comment on above: Performed By: #### C BC #### [facility] [address] [place] [address] Dr. Jessica Gonzalez MCHC (RBC) [Mass/Vol] 34.6 g/dL Normal 29.9-35.2 [facility] Comment on above: Performed By: #### C BC #### [facility] [address] [address] [address] Jessica Gonzalez MCV (RBC) [Entitic vol] 99.0 fL Normal 81.0-99.0 [facility] Comment on above: Performed By: #### C BC #### [facility] [address] [address] [address] Jessica Gonzalez MONO # 0.4 103/ul Normal 0.3-0.8 [facility] Comment on above: Performed By: #### C BC #### [facility] [address] [address] [address] Jessica Gonzalez Monocytes/100 WBC (Bld) 2.5 % Normal 1.7-12.0 [facility] Comment on above: Performed By: #### C BC #### [facility] [address] [address] [address] Jessica Gonzalez NEUT # 14.0 103/ul Critically high 1.4-6.5 [facility] Comment on above: Performed By: #### C BC #### [facility] [address] [place] [address] Dr. Jessica Gonzalez Neutrophils/100 WBC (Bld) 90.4 % Critically high 43.0-75.0 [facility] Comment on above: Performed By: #### C BC #### [facility] [address] [address] [address] Jessica Gonzalez Platelet mean volume (Bld) [Entitic vol] 9.6 fL Normal 9.5-13.5 [facility] Comment on above: Performed By: #### C BC #### [facility] [address] [address] [address] Jessica Gonzalez PLT 168 103/ul Normal 150-450 [facility] Comment on above: Performed By: #### C BC #### [facility] [address] [address] [address] Jessica Gonzalez RBC 4.09 106/ul Critically low 4.20-5.40 [facility] [place] Comment on above: Performed By: #### C BC #### [facility] [address] [address] [address] Jessica Gonzalez WBC 15.5 103/ul Critically high 4.0-11.0 [facility] Comment on above: Performed By: #### C BC #### [facility] [address] [address] [address] Jessica Gonzalez CTA CHEST WO W [...] by: MULU GARCIA Date: 2021-06-07 05:08 Normal [facility] CULTURE BLOODon 06-07-2021 Microscopic examination of blood, culture Culture Observations: No growth at 5 days. Normal [facility] Comment on above: Performed By: #### B MP #### [facility] [address] [address] [address] Jessica Gonzalez Covid-19 PCR ([facility])on SARS-CoV-2 (COVID-19) RNA MASON+probe Ql (Unsp spec) Not detected Normal NOT DETECTED [facility] Comment on above: Result Comment: When [...] for this test is supported by the Engineering Production Worker of Health and Human Service's declaration that [...] longer be used). Performed By: #### C VDTB #### [facility] [address] [place] [address] Dr. Jessica Gonzalez LACTATE/LACTIC ACIDon 2021 Lactate [Moles/Vol] 1.8 mmol/L Normal 0.7-2.0 [facility] Comment on above: Performed By: #### C VDTB #### [facility] [address] [place] [address] Dr. Jessica Gonzalez PROF 14(COMP METB)on 022 Albumin [Mass/Vol] 3.1 g/dL Critically low 3.5-5.0 [facility] Comment on above: Performed By: #### C MP #### [facility] [address] [place] [address] Dr. Jessica Gonzalez Albumin/Globulin [Mass ratio] 0.8 {ratio} Normal [facility] Comment on above: Performed By: #### C MP #### [facility] [address] [place] [address] Dr. Jessica Gonzalez ALP [Catalytic activity/Vol] 89 U/L Normal 38-126 [facility] Comment on above: Performed By: #### C MP #### [facility] [address] [place] [address] Dr. Jessica Gonzlaez ALT [Catalytic activity/Vol] 21 U/L Normal 9-52 [facility] Comment on above: Performed By: #### C MP #### [facility] [address] [address] [address] Jessica Gonzalez Anion gap [Moles/Vol] 13.2 mmol/L Normal [facility] Comment on above: Performed By: #### C MP #### [facility] [address] [place] [address] Dr. Jessica Gonzalez AST [Catalytic activity/Vol] 15 U/L Normal 14-36 [facility] Comment on above: Performed By: #### C MP #### [facility] [address] [place] [address] Dr. Jessica Gonzalez Bilirubin [Mass/Vol] 1.2 mg/dL Normal 0.2-1.3 [facility] Comment on above: Performed By: #### C MP #### [facility] [address] [place] [address] Dr. Jessica Gonzalez Calcium [Mass/Vol] 9.0 mg/dL Normal 8.4-10.2 [facility] Comment on above: Performed By: #### C MP #### [facility] [address] [place] [address] Dr. Jessica Gonzalez Chloride [Moles/Vol] 102 mmol/L Normal 98-107 [facility] Comment on above: Performed By: #### C MP #### [facility] [address] [place] [address] Dr. Jessica Gonzalez CO2 [Moles/Vol] 27.4 mmol/L Normal 22.0-30.0 [facility] Comment on above: Performed By: #### C MP #### [facility] [address] [place] [address] Dr. Jessica Gonzalez Creatinine [Mass/Vol] 1.05 mg/dL Critically high 0.52-1.04 [facility] Comment on above: Performed By: #### C MP #### [facility] [address] [place] [address] Dr. Jessica Gonzalez EGFR-AF MONTSERRATIAN >60 Normal >=60 [facility] Comment on above: Performed By: #### C MP #### [facility] [address] [place] [address] Dr. Jessiac Gonzalez EGFR-NON AF MONTSERRATIAN 53 mL/min/1.73m2 Critically low >=60 [facility] Comment on above: Performed By: #### C MP #### [facility] [address] [address] [address] Jessica Gonzalez Globulin (S) [Mass/Vol] 3.9 g/dL Normal [facility] Comment on above: Performed By: #### C MP #### [facility] [address] [address] [address] Jessica Gonzalez Glucose [Mass/Vol] 133 mg/dL Critically high 74-106 [facility] Comment on above: Performed By: #### C MP #### [facility] [address] [address] [address] Jessica Gonzalez Potassium [Moles/Vol] 3.6 mmol/L Normal 3.4-5.0 [facility] Comment on above: Performed By: #### C MP #### [facility] [address] [address] [address] Jessica Gonzalez Protein [Mass/Vol] 7.0 g/dL Normal 6.1-8.2 [facility] Comment on above: Performed By: #### C MP #### [facility] [address] [address] [address] Jessica Gonzalez Sodium [Moles/Vol] 139 mmol/L Normal 137-145 [facility] Comment on above: Performed By: #### C MP #### [facility] [address] [address] [address] Jessica Gonzalez Urea nitrogen [Mass/Vol] 14.0 mg/dL Normal 7.0-17.0 [facility] Comment on above: Performed By: #### C MP #### [facility] [address] [place] [address] Dr. Jessica Gonzalez Urea nitrogen/Creatinine [Mass ratio] 13.3 mg/mg Normal [facility] Comment on above: Performed By: #### C MP #### [facility] [address] [place] [address] Dr. Jessica Gonzalez XR CHEST 1 Von 06-07-2021 XR CHEST 1 V EXAM: XR CHEST 1 V HISTORY: SHORTNESS OF BREATH acute dyspnea, cough COMPARISON: None. TECHNIQUE: Single frontal view chest x-ray FINDINGS:Right upper lobe pulmonary opacity/consolidatio n. No large effusions or pneumothorax. No acute bony abnormality. Cardiac size unremarkable. IMPRESSION: Right upper lobe pulmonary opacity/consolidatio n concerning for pneumonia versus focal edema although underlying lung lesion not excluded. CT chest to further clarify as indicated. Electronically authenticated by: TERLEL KING Date: 2021-06-07 02:24 Normal [facility] Vital Signs Date Time Vital Sign Value Performing Clinician Facility 06-03-2023 14:45-0500 Body height 172.72 cm Erma Shields Other [facility] Other 06-03-2023 14:45-0500 Body mass index (BMI) [Ratio] 31.17 kg/m2 Erma Shields Other [facility] Other 06-03-2023 14:45-0500 Body temperature 98.1 [degF] Erma Shields Other [facility] Other 06-03-2023 14:45-0500 Body weight 92.99 kg Erma Shields Other [facility] Other 06-03-2023 14:45-0500 Respiratory rate 18 /min Erma Shields Other [facility] [employer] [facility] [employer] [facility] Other 06-03-2023 14:45-0500 SaO2% (BldA) [Mass fraction] 95 % Erma Shields Other [facility] [employer] [facility] Other Encounters Encounter Date Encounter Type Care Provider Facility Start: 12-03-2023 End: 12-03-2023 ambulatory CIRO CLEARY Not Available Start: 06-12-2023 End: 06-12-2023 ambulatory CIRO CLEARY Not Available Start: 06-03-2023 End: 06-03-2023 ambulatory Erma Shields Other [facility] Other Start: 06-03-2023 Office outpatient ne w 30 minutes Erma Shields [facility] Start: 06-07-2021 End: 06-15-2021 Evaluation and management of inpatient DR REAGAN MACDONALD Facility:[facility] Start: 05-16-2021 End: 05-17-[address] ASTRID KELLY Facility:[facility] Payers Date Payer Category Payer Medicare [id number] 2023 Medicare [id number]. [id number] 1959 Unknown [id number] 1955 Unknown [id number] 1957 Unknown [id number] 1957 Unknown [id number] 1957 Unknown [id number] [id number] Social History Date Type Detail Facility Sex Assigned At [facility] Other Evaluation note 06-03-2023 Note Date & Type Note Facility 06-03-2023 Evaluation note Encounter Date Diagnosis Assessment Notes May, Mild intermittent asthma with acute exacerbation (ICD-10 - J45.21) Advised patient that rapid COVID/influenza A/B test was negative today in office. Discussed diagnosis with patient today in office. Dexamethasone injection provided in office. Advised that physical exam is consistent with acute asthma exacerbation. Will send in Rx of steroid. Advised patient to take medications as prescribed, reviewed side effects of steroid, take with food and plenty of water. Supportive care as directed, push fluids and rest, may use Tylenol as needed for fever/discomfort , cool mist humidifier. May use [place] as needed for cough, do not take any other OTCs while using [place]. Use Albuterol inhaler as directed. Patient to follow up with PCP in 2-3 days. Immediate eval if SOB, difficulty breathing, chest pain, dizziness, or other concerning symptoms. Patient verbalizes understanding and is agreeable to treatment plan. May, Acute cough (ICD-10 - R05.1) [facility] [employer] [facility] [employer] Other Clinical Note 05-16-2021 Note Date & Type [...] authenticated by: ASTRID KELLY Date: 2021-05-16 09:51 [facility] Clinical Note 05-16-2021 Note Date & Type [...] authenticated by: ASTRID KELLY Date: 2021-05-16 09:51 [facility] History general Narrative - Reported Note Date & Type Note Facility History general Narrative - Reported Type Medical History hypertension Medical History asthma Surgical History tonsillectomy Surgical History reconstructive ear surgery Surgical History neuroma in right foot Surgical History tubal ligation Surgical History vein ablasion right leg Hospitalization History cellulitis Hospitalization History [facility] Other Summary Purpose Family History No Family History Records FoundNo Family History Records Found Advance Directives No Advanced Directives Records FoundNo Advanced Directives Records Found Additional Source Comments INFORMATION SOURCE (unrecogn ized section and content) DATE CREATED AUTHOR 06/23/2021 [facility] DATE CREATED AUTHOR AUTHOR'S ORGANIZ ATION 12/04/2023 [facility] EPIC REASON FOR VISIT (unrecogniz ed section and content) FEVER, SOB, COUGH - HAS ASTH MA FOR RECORDS PERTAINING TO PATIENTS WHO ARE [...] BE BASED ON THE PRIMARY CLINICAL RECORDS. [employer] provides no warranty or guarantee of the accuracy or completeness of information in this document.
[2023-12-05 09:00] LABS: Basophils Percent Auto 0.7 % (0.2-2.0); Eosinophils Absolute Auto 0.1 10^3/uL (0.0-0.7); Eosinophils Percent Auto 1.1 % (0.9-7.0); Hematocrit 40.2 % (36.0-48.0); Hemoglobin 13.6 g/dL (12.0-16.0); Immature Granulocytes Abs Auto 0.01 10^3/uL (0.00-0.03); Immature Granulocytes Pct Auto 0.2 % (0.0-0.5); Lymphocytes Absolute Auto 1.5 10^3/uL (1.2-3.8); Lymphocytes Percent Auto 32.6 % (20.5-60.0); Mean Corpuscular HGB Conc 33.8 g/dL (29.9-35.2); Mean Corpuscular Hemoglobin 33.2 pg (26.7-34.0); Monocytes Absolute Auto 0.3 10^3/uL (0.3-0.8); Monocytes Percent Auto 5.5 % (1.7-12.0); Neutrophils Absolute Auto 2.7 10^3/uL (1.4-6.5); Neutrophils Percent Auto 59.9 % (43.0-75.0); Platelet Count 221 10^3/uL (150-450); Red Cell Distribution Width 12.6 % (11.0-15.0); White Blood Count 4.5 10^3/uL (4.0-11.0)
[2023-12-05 10:04] LABS: Estimated Average Glucose 108 mg/dL; Glycohemoglobin A1C 5.4 % (4.5-6.2)
[2023-12-05 10:18] LABS: Alanine Aminotransferase 25 U/L (14-59); Albumin Globulin Ratio 1.3; Albumin Level 3.4 g/dL (3.4-5.0); Alkaline Phosphatase 78 U/L (46-116); Anion Gap 10.1; Aspartate Amino Transferase 20 U/L (15-37); BUN Creatinine Ratio 20.3; Bilirubin Direct 0.1 mg/dL (0.0-0.2); Bilirubin Total 0.7 mg/dL (0.2-1.0); Calcium 8.9 mg/dL (8.5-10.1); Chloride 103 mmol/L (98-107); Chol HDL Ratio 5.5; Cholesterol 266 mg/dL (<=200); Estimated GFR (African America >60 (>=60); Estimated GFR (Non-African Ame >60 (>=60); Globulin 2.7 g/dL; Glucose 89 mg/dL (74-106); HDL Cholesterol 48 mg/dL (40-60); Potassium 4.1 mmol/L (3.5-5.1); Sodium 140 mmol/L (136-145); Thyroid Stimulating Hormone 1.023 uIU/mL (0.358-3.740); Total Protein 6.1 g/dL (6.4-8.2); Triglycerides 167 mg/dL (<=150); VLDL CHOLESTEROL 33.4 mg/dL
== END 2023-12-05 08:16 | disposition home or self-care (01) ==
LOC: LAB 08:16
PROVIDERS: PCP Family Medicine; Visit Provider Family Medicine
DX: R73.03 Prediabetes (principal); Z79.899 Other long term (current) drug therapy; E78.5 Hyperlipidemia, unspecified; E66.9 Obesity, unspecified
CPT/HCPCS: 36415; 80048; 80061; 80076; 83036; 84443; 85025

== ENCOUNTER 2024-07-04 08:31 | Outpatient (OUT) | payer MEDICARE, SELFPAY ==
--- OUTSIDE RECORDS SUMMARY | 2024-07-04 08:38 | XMS_ITS | CCD ---
Author Organization [facility] Care Team Providers Care Boarding Room Fixer Name Role Phone TORRES, DR REAGAN Vance Consulting Unavailable NADJEFFRY, DR PITER Berg Admitting Unavailable MADIHA, DR PITER Berg Attending Unavailable ALISHA, DR CALI Anthony Consulting Unavailable MADIHA, DR PITER Berg Consulting Unavailable SAMSA, OXANA Consulting Unavailable Policaro, Mulu Consulting Unavailable Benitez, Terell Consulting Unavailable ZIEBER, DR ASTRID Vance Consulting Unavailable MADIHA, DR PITER Berg Admitting Unavailable MADIHA, DR PITER Berg Attending Unavailable MADIHA, DR PITER Berg Consulting Unavailable Erma Shields Unavailable Piter Cleary MD Primary Care Provider [phone] PITER CLEARY Attending Unavailable PITER CLEARY Attending Unavailable MAGUI DOUGLAS Attending Unavailable PITER CLEARY Referring Unavailable MAGUI DOUGLAS Attending Unavailable MAGUI DOUGLAS Attending Unavailable MAGUI DOUGLAS Attending Unavailable PITER CLEARY Attending Unavailable Medications Current Medications Medication Drug Class(es) Dates Sig (Normalized) Sig (Original) [id number] 200 actuat albuterol 0.09 mg/actuat metered dose inhaler (8 sources) beta2-Adrenergic Agonist Start: 01-06-2024 Albuterol Sulfate Active 1 PUFF INHALATION every 6 to 8 hours January 06, 2024 12:00am Start: 06-03-2023 take 2 puff(s) by in halation every four hours albuterol HFA 90 mcg/act inhaler Inhale 2 puffs every 4 (four) hours if needed 06/03/2023 Active Start: 06-03-2023 take 2 puff(s) by in halation every four to six hours as needed Albuterol Sulfate HFA 108 (90 Base) MCG/ACT 2 puffs as needed Inhalation every 4-6 hours for 14 days May, Active take 2 puff(s) by in halation every four hours as needed Ventolin HFA 108 (90 Base) MCG/ACT 2 puffs as needed Inhalation every 4 hrs Active 24 hr buPROPion hydrochloride 150 mg extended release oral tablet (2 sources) Aminoketone take 1 tablet by mouth once daily buPROPion XL (Wellbutrin XL) 150 MG 24 hr tablet Take 150 mg by mouth Daily Active cholecalciferol 0.05 mg oral capsule (1 source) Vitamin D Start: take 50 ug by mouth once daily Cholecalciferol (Vitamin D3) Active 50 MCG PO Daily January 06, 2024 12:00am dextromethorphan hydrobromide 1.5 mg/ml / pyrilamine maleate 1.5 mg/ml oral solution (1 source) Uncompetitive R-qmesvi-G-aspartate Receptor Antagonist, Sigma-1 Agonist Start: take 10 mL by mouth every eight hours [place] DM 7.5-7.5 MG/5ML 10 mL Orally every 8 hours for 5 days May, Active Fluticasone Furoate-Vilanterol (6 sources) Corticosteroid, beta2-Adrenergic Agonist Start: Fluticasone Furoate-Vilanterol (Breo Ellipta) 200-25 mcg/dose blister with device Active 1 INH INHALATION Daily January 06, 2024 12:00am Start: 03-05-2023 End: 06-05-2024 take 1 puff(s) by inhalation in the morning Breo Ellipta 200-25 MCG/ACT aerosol powder Inhale 1 puff in the morning and 1 puff before bedtime. 03/05/2023 06/05/2024 Discontinued 60 actuat formoterol fumarate 0.005 mg/actuat / mometasone furoate 0.2 mg/actuat metered dose inhaler (1 source) Corticosteroid, beta2-Adrenergic Agonist take 2 puff(s) by inhalation twice daily Dulera 200-5 MCG/ACT 2 puffs Inhalation Twice a day Active hydroCHLOROthiazide 12.5 mg / lisinopril 20 mg oral tablet (6 sources) Thiazide Diuretic, Angiotensin Converting Enzyme Inhibitor Start: 2023 take 1 tablet by mouth once daily Lisinopril-[place] chlorothiazide Active 1 TAB PO Daily January 06, 2024 12:00am Start: 10-16-2023 End: 10-15-2024 take 1 tablet by mouth once daily lisinopril-hydroCHLOROthiazide 10-12.5 M G tablet Indications: Benign hypertension (CMS/HCC) Take 1 tablet by mouth Daily 30 tablet 11 10/16/2023 10/15/2024 Active ibuprofen 200 mg oral tablet (1 source) Nonsteroidal Anti-inflammatory Drug Start: 01-06-2024 take 200 mg by mouth every six hours Ibuprofen Active 200 MG PO Every 6 hours January 06, 2024 12:00am lisinopril 20 mg oral tablet (1 source) Angiotensin Converting Enzyme Inhibitor take 1 tablet by mouth every twenty-four hours Lisinopril 20 MG 1 tablet Orally Once a day Active magnesium oxide 250 mg oral tablet (1 source) Start: 01-06-2024 take 250 mg by mouth once daily Magnesium Oxide Active 250 MG PO Daily January 06, 2024 12:00am methylPREDNISolone 4 mg oral tablet (1 source) Corticosteroid Start: 06-03-2023 methylPREDNISolone 4 MG as directed Orally for May, Active Multivitamin (Daily Multi-Vitamin) tablet (1 source) Start: 01-06-2024 take 1 tablet by mouth once daily Multivitamin (Daily Multi-Vitamin) tablet Active 1 TAB PO Daily January 06, 2024 12:00am omeprazole 20 mg delayed release oral tablet (5 sources) Proton Pump Inhibitor take 1 tablet by mouth before mealtime omeprazole OTC (PriLOSEC OTC) 20 MG EC tablet Take 20 mg by mouth in the morning. Take before meals. Do not crush, chew, or split.. Active polymyxin b 23947 unt/ml / trimethoprim 1 mg/ml ophthalmic solution (1 source) Dihydrofolate Reductase Inhibitor Antibacterial, Polymyxin-class Antibacterial Start: 01-06-2024 Polymyxin B Sulf-Trimethoprim Active 1 DROPS OPHTHALMIC Every three hours 10 7 January 06, 2024 12:00am Apply 1 drop in each eye every 3 hours while awake, do not exceed 6 doses in a 24 hr period potassium citrate 99 mg oral tablet (1 source) Start: 01-06-2024 take 99 mg by mouth twice daily Potassium Citrate Active 99 MG PO Twice daily January 06, 2024 12:00am Trelegy Ellipta 200-62.5-25 MCG/ACT aerosol powder (2 sources) Start: 01-29-2024 Trelegy Ellipta 200-62.5-25 MCG/ACT aerosol powder 1 puff 1 (one) time each day at the same time 01/29/2024 Active triamcinolone acetonide 5 mg/ml topical cream (6 sources) Corticosteroid Start: 12-03-2023 triamcinolone (Kenalog) 0.5 % cream Indications: Dermatitis Apply topically 3 (three) times a day 30 g 1 12/03/2023 Active Vitamin B Complex (1 source) Start: 01-06-2024 take 1 tablet by mouth once daily Vitamin B Complex Active 1 TAB PO Daily January 06, 2024 12:00am Vitamins A,C,N-Jkuv-Avrjjg (Preservision Areds) 4,296 mcg-226 mg-90 mg capsule (1 source) Start: 01-06-2024 take 1 capsule by mouth once Vitamins A,C,W-Drxd-Kpapwf (Preservision Areds) 4,296 mcg-226 mg-90 mg capsule Active 1 CAP PO Once January 06, 2024 12:00am Completed/Discontinued Medications Medication Drug Class(es) Dates Sig [...] Classification Problem Date Documented Da te Episodic/Chronic Anxiety disorders (8 sources) Generalized anxiety disorder; Translations: [Generalized anxiety disorder] Onset: 12-03-2023 12-03-2023 Chronic Asthma (3 sources) Mild intermittent asthma, uncomplicated; Translations: [Mild intermittent asthma] Onset: 06-22-2021 Chronic Chronic obstructive pulmonary disease and bronchiectasis (13 sources) Centrilobular emphysema; Translations: [Chronic obstructive lung disease] Onset: 06-22-2021 Resolved: 12-03-2023 06-12-2023 Chronic Disorders of lipid metabolism (5 sources) Dyslipidemia; Translations: [Hyperlipidemia, unspecified] Onset: 06-05-2023 06-05-2023 Chronic E Codes: Adverse effects of medical drugs (1 source) Adverse effect of glucocorticoids and synthetic analogues, initial encounter; Translations: [ADVRS EFF GLUCOCORT SYN ANALOG INIT] Onset: 06-22-2021 Episodic Esophageal disorders (8 sources) Gastro-esophageal reflux disease without esophagitis; Translations: [Gastroesophageal reflux disease] Onset: 06-22-2021 06-05-2023 Chronic Essential hypertension (7 sources) Benign hypertension; Translations: [Essential (primary) hypertension] Onset: 06-05-2023 06-05-2023 Chronic Inflammation; infection of eye (except that caused by tuberculosis or sexually transmitteddisease) (2 sources) Acute conjunctivitis; Translations: [Unspecified acute conjunctivitis, bilateral] 01-06-2024 Episodic Mycoses (1 source) Candidal stomatitis; Translations: [CANDIDAL STOMATITIS] Onset: 06-22-2021 Episodic Other congenital anomalies (1 source) Accessory lobe of lung; Translations: [ACCESSORY LOBE OF LUNG] Onset: 06-22-2021 Chronic Other gastrointestinal disorders (4 sources) Other specified symptoms and signs involving the digestive system and abdomen; Translations: [OTH SPEC SX SIGNS DIGESTV SYS ABD] Onset: 05-16-2021 Episodic Other nutritional; endocrine; and metabolic disorders (5 sources) Body mass index 30+ - obesity; Translations: [Obesity, unspecified] Onset: 12-03-2023 12-03-2023 Chronic Other upper respiratory disease (5 sources) Allergic rhinitis due to pollen; Translations: [Allergic rhinitis due to pollen] Onset: 06-12-2023 06-12-2023 Chronic Pleurisy; pneumothorax; pulmonary collapse (1 source) Pyothorax without fistula; Translations: [PYOTHORAX WITHOUT FISTULA] Onset: 06-22-2021 Episodic Residual codes; unclassified (7 sources) Edema of lower extremity; Translations: [Localized edema] Onset: 06-05-2023 06-05-2023 Episodic Respiratory failure; insufficiency; arrest (adult) (1 [...] Classification Problem Date Documented Da te Episodic/Chronic Diabetes mellitus without complication (5 sources) Prediabetes; Translations: [Prediabetes] Onset: 06-05-2023 06-05-2023 Episodic Other aftercare (2 sources) Patient encounter status; Translations: [Other chcf (current) drug therapy] Onset: 12-03-2023 12-03-2023 Episodic Other aftercare (3 sources) Long-term current use of drug therapy; Translations: [Other chcf (current) drug therapy] Onset: 12-03-2023 12-03-2023 Episodic Pneumonia (except that caused by tuberculosis or sexually transmitted disease) (8 sources) Pneumonia, unspecified organism; Translations: [Pneumonia due to respiratory syncytial virus] Onset: 06-07-2021 Resolved: 12-03-2023 Episodic Unclassified (1 source) Acute cough R05.1 Results Test Name Value Interpretation Reference Range Facility COVID + FLU Quick Testingon 06-03-2023 SARS-CoV-2 (COVID-19) RNA MASON+probe Ql (Unsp spec) Negative [facility] Other COVID + FLU Quick Testing Negative [facility] Other [id number] PHENOTYP INGon 06-14-2021 [id number], Serum 266 mg/dL Critically high 101-187 [facility] Comment on above: Result Comment: Perf ormed at: CB Performed By: #### C [facility] #### [facility] [address] [place] [address] Dr. Jessica Gonzalez Phenotype (PI) MM Normal [facility] Comment on above: Result Comment: Phen otype [...] BN Performed By: #### C VDTB #### [facility] [address] [place] [address] Dr. Jessica Gonzalez CBC W MANUAL DIFFon 06-14-19 22 ATYPICAL LYMPH # Normal [facility] Comment on above: Performed By: #### C ANDRES #### [facility] [address] [place] [address] Dr. Jessica Gonzalez ATYPICAL LYMPH % Normal [facility] Comment on above: Performed By: #### C ANDRES #### [facility] [address] [place] [address] Dr. Jessica Gonzalez BAND # 1.2 103/ul Critically high 0.0-0.3 [facility] Comment on above: Performed By: #### C ANDRES #### [facility] [address] [place] [address] Dr. Jessica Gonzalez BAND % 6 % Critically high 0-5 [facility] Comment on above: Performed By: #### C ANDRES #### [facility] [address] [place] [address] Dr. Jessica Gonzalez BASOM # 0.00 103/ul Normal 0.00-0.10 [facility] Comment on above: Performed By: #### C BCRODY #### [facility] [address] [place] [address] Dr. Jessica Gonzalez BASOM % 0.0 % Critically low 0.2-2.0 [facility] Comment on above: Performed By: #### C BCRODY #### [facility] [address] [place] [address] Dr. Jessica Gonzalez BLAST # Normal [facility] Comment on above: Performed By: #### C ANDRES #### [facility] [address] [place] [address] Dr. Jessica Gonzalez BLAST % Normal [facility] Comment on above: Performed By: #### C ANDRES #### [facility] [address] [place] [address] Dr. Jesscia Gonzalez CORRECTED WBC Normal 4.0-11.0 [facility] Comment on above: Performed By: #### C ANDRES #### [facility] [address] [place] [address] Dr. Jessica Gonzalez EOS # 0.00 103/ul Normal 0.00-0.70 [facility] Comment on above: Performed By: #### C ANDRES #### [facility] [address] [place] [address] Dr. Jessica Gonzalez EOS% 0.0 % Critically low 0.9-7.0 [facility] Comment on above: Performed By: #### C ANDRES #### [facility] [address] [place] [address] Dr. Jessica Gonzalez HCT 37.7 % Normal 36.0-48.0 [facility] Comment on above: Performed By: #### C ANDRES #### [facility] [address] [place] [address] Dr. Jessica Gonzalez HGB 12.6 g/dl Normal 12.0-16.0 [facility] Comment on above: Performed By: #### C ANDRES #### [facility] [address] [place] [address] Dr. Jessica Gonzalez LYMPHM # 1.76 103/ul Normal 1.20-3.80 [facility] Comment on above: Performed By: #### C ANDRES #### [facility] [address] [address] [address] Jessica Gonzalez LYMPHM% 9.0 % Critically low 20.5-60.0 [facility] Comment on above: Performed By: #### C ANDRES #### [facility] [address] [place] [address] Dr. Jessica Gonzalez MCH 33.4 pg Normal 26.7-34.0 [facility] Comment on above: Performed By: #### C ANDRES #### [facility] [address] [place] [address] Dr. Jessica Gonzalez MCHC 33.4 g/dl Normal 29.9-35.2 [facility] Comment on above: Performed By: #### C ANDRES #### [facility] [address] [place] [address] Dr. Jessica Gonzalez MCV 100.0 fL Critically high 81.0-99.0 [facility] Comment on above: Performed By: #### C ANDRES #### [facility] [address] [place] [address] Dr. Jessica Gonzalez METAMYELOCYTE # Normal [facility] Comment on above: Performed By: #### C ANDRES #### [facility] [address] [place] [address] Dr. Jessica Gonzalez METAMYELOCYTE % Normal [facility] Comment on above: Performed By: #### C ANDRES #### [facility] [address] [address] [address] Jessica Gonzalez MONOM# 0.98 103/ul Critically high 0.30-0.80 [facility] Comment on above: Performed By: #### C ANDRES #### [facility] [address] [place] [address] Dr. Jessica Gonzalez MONOM% 5.0 % Normal 1.7-12.0 [facility] Comment on above: Performed By: #### C ANDRES #### [facility] [address] [place] [address] Dr. Jessica Gonzalez MPV 9.3 fL Critically low 9.5-13.5 [facility] Comment on above: Performed By: #### C ANDRES #### [facility] [address] [address] [address] Jessica Gonzalez MYELOCYTE # Normal [facility] Comment on above: Performed By: #### C ANDRES #### [facility] [address] [id number] [address] Jessica Gonzalez MYELOCYTE % Normal [facility] Comment on above: Performed By: #### C ANDRES #### [facility] [address] [address] [address] Jessica Gonzalez NRBC Normal [facility] Comment on above: Performed By: #### C ANDRES #### [facility] [address] [place] [address] Dr. Jessica Gonzalez PLT 271 103/ul Normal 150-450 [facility] Comment on above: Performed By: #### C ANDRES #### [facility] [address] [place] [address] Dr. Jessica Gonzalez RBC 3.77 106/ul Critically low 4.20-5.40 [facility] Comment on above: Performed By: #### C ANDRES #### [facility] [address] [place] [address] Dr. Jessica Gonzalez RDW 13.6 % Normal 11.0-15.0 [facility] Comment on above: Performed By: #### C ANDRES #### [facility] [address] [place] [address] Dr. Jessica Gonzalez SEG # 15.68 103/ul Critically high 1.40-6.50 [facility] Comment on above: Performed By: #### C ANDRES #### [facility] [address] [place] [address] Dr. Jessica Gonzalez SEG % 80.0 % Critically high 43.0-75.0 [facility] Comment on above: Performed By: #### C ANDRES #### [facility] [address] [place] [address] Dr. Jessica Gonzalez WBC 19.6 103/ul Critically high 4.0-11.0 [facility] Comment on above: Performed By: #### C BCMAN #### [facility] [address] [address] [address] Jessica Gonzalez PROF CHEM 8 (BAS METB)on Anion gap [Moles/Vol] 12.0 mmol/L Normal [facility] Comment on above: Performed By: #### B MP #### [facility] [address] [address] [address] Jessica Gonzalez Calcium [Mass/Vol] 8.7 mg/dL Normal 8.4-10.2 [facility] Comment on above: Performed By: #### B MP #### [facility] [address] [place] [address] Dr. Jessica Gonzalez Chloride [Moles/Vol] 103 mmol/L Normal 98-107 [facility] Comment on above: Performed By: #### B MP #### [facility] [address] [address] [address] Jessica Gonzalez CO2 [Moles/Vol] 27.7 mmol/L Normal 22.0-30.0 [facility] Comment on above: Performed By: #### B MP #### [facility] [address] [place] [address] Dr. Jessica Gonzalez Creatinine [Mass/Vol] 0.85 mg/dL Normal 0.52-1.04 [facility] Comment on above: Performed By: #### B MP #### [facility] [address] [place] [address] Dr. Jessica Gonzalez EGFR-AF NEW ZEALANDER >60 Normal >=60 [facility] Comment on above: Performed By: #### B MP #### [facility] [address] [place] [address] Dr. Jessica Gonzalez EGFR-NON AF NEW ZEALANDER >60 Normal >=60 [facility] Comment on above: Performed By: #### B MP #### [facility] [address] [place] [address] Dr. Jessica Gonzalez Glucose [Mass/Vol] 156 mg/dL Critically high 74-106 [facility] Comment on above: Performed By: #### B MP #### [facility] [address] [address] [address] Jessica Gonzalez Potassium [Moles/Vol] 3.7 mmol/L Normal 3.4-5.0 [facility] Comment on above: Performed By: #### B MP #### [facility] [address] [address] [address] Jessica Gonzalez Sodium [Moles/Vol] 139 mmol/L Normal 137-145 [facility] Comment on above: Performed By: #### B MP #### [facility] [address] [address] [address] Jessica Gonzalez Urea nitrogen [Mass/Vol] 18.0 mg/dL Critically high 7.0-17.0 [facility] Comment on above: Performed By: #### B MP #### [facility] [address] [address] [address] Jessica Gonzalez Urea nitrogen/Creatinine [Mass ratio] 21.2 mg/mg Normal [facility] Comment on above: Performed By: #### B MP #### [facility] [address] [address] [address] Jessica Gonzalez CBC W MANUAL DIFFon 06-13-19 22 ATYPICAL LYMPH # Normal [facility] Comment on above: Performed By: #### C VDTBH #### [facility] [address] [address] [address] Jessica Gonzalez ATYPICAL LYMPH % Normal [facility] Comment on above: Performed By: #### C VDTBH #### [facility] [address] [address] [address] Jessica Gonzalez BAND # 2.0 103/ul Critically high 0.0-0.3 [facility] Comment on above: Performed By: #### C VDTBH #### [facility] [address] [address] [address] Jessica Gonzalez BAND % 11 % Critically high 0-5 [facility] Comment on above: Performed By: #### C VDTBH #### [facility] [address] [place] [address] Dr. Jessica Gonzalez BASOM # 0.00 103/ul Normal 0.00-0.10 [facility] Comment on above: Performed By: #### C VDTBH #### [facility] [address] [place] [address] Dr. Jessica Gonzalez BASOM % 0.0 % Critically low 0.2-2.0 [facility] Comment on above: Performed By: #### C VDTBH #### [facility] [address] [place] [address] Dr. Jessica Gonzalez BLAST # Normal [facility] Comment on above: Performed By: #### C VDTBH #### [facility] [address] [place] [address] Dr. Jessica Gonzalez BLAST % Normal [facility] Comment on above: Performed By: #### C VDTBH #### [facility] [address] [place] [address] Dr. Jessica Gonzalez CORRECTED WBC Normal 4.0-11.0 [facility] Comment on above: Performed By: #### C VDTBH #### [facility] [address] [place] [address] Dr. Jessica Gonzalez EOS # 0.18 103/ul Normal 0.00-0.70 [facility] Comment on above: Performed By: #### C VDTBH #### [facility] [address] [place] [address] Dr. Jessica Gonzalez EOS% 1.0 % Normal 0.9-7.0 [facility] Comment on above: Performed By: #### C VDTBH #### [facility] [address] [place] [address] Dr. Jessica Gonzalez HCT 37.5 % Normal 36.0-48.0 [facility] Comment on above: Performed By: #### C VDTBH #### [facility] [address] [place] [address] Dr. Jessica Gonzalez HGB 12.5 g/dl Normal 12.0-16.0 [facility] Comment on above: Performed By: #### C VDTBH #### [facility] [address] [address] [address] Jessica Gonzalez LYMPHM # 2.00 103/ul Normal 1.20-3.80 [facility] Comment on above: Performed By: #### C VDTBH #### [facility] [address] [address] [address] Jessica Gonzalez LYMPHM% 11.0 % Critically low 20.5-60.0 [facility] Comment on above: Performed By: #### C VDTBH #### [facility] [address] [place] [address] Dr. Jessica Gonzalez MCH 33.2 pg Normal 26.7-34.0 [facility] Comment on above: Performed By: #### C VDTBH #### [facility] [address] [place] [address] Dr. Jessica Gonzalez MCHC 33.3 g/dl Normal 29.9-35.2 [facility] Comment on above: Performed By: #### C VDTBH #### [facility] [facility] [address] [place] [address] Dr. Jessica Gonzalez MCV 99.7 fL Critically high 81.0-99.0 [facility] Comment on above: Performed By: #### C VDTBH #### [facility] [address] [place] [address] Dr. Jessica Gonzalez METAMYELOCYTE # Normal [facility] Comment on above: Performed By: #### C VDTBH #### [facility] [address] [place] [address] Dr. Jessica Gonzalez METAMYELOCYTE % Normal [facility] Comment on above: Performed By: #### C VDTBH #### [facility] [address] [place] [address] Dr. Jessica Gonzalez MONOM# 1.46 103/ul Critically high 0.30-0.80 [facility] Comment on above: Performed By: #### C VDTBH #### [facility] [address] [place] [address] Dr. Jessica Gonzalez MONOM% 8.0 % Normal 1.7-12.0 [facility] Comment on above: Performed By: #### C VDTBH #### [facility] [address] [place] [address] Dr. Jessica Gonzalez MPV 10.2 fL Normal 9.5-13.5 [facility] Comment on above: Performed By: #### C VDTBH #### [facility] [address] [place] [address] Dr. Jessica Gonzalez MYELOCYTE # Normal [facility] Comment on above: Performed By: #### C VDTBH #### [facility] [address] [place] [address] Dr. Jessica Gonzalez MYELOCYTE % Normal [facility] Comment on above: Performed By: #### C VDTBH #### [facility] [address] [place] [address] Dr. Jessica Gonzalez NRBC Normal [facility] Comment on above: Performed By: #### C VDTBH #### [facility] [address] [place] [address] Dr. Jessica Gonzalez PLT 223 103/ul Normal 150-450 [facility] Comment on above: Performed By: #### C VDTBH #### [facility] [address] [place] [address] Dr. Jessica Gonzalez RBC 3.76 106/ul Critically low 4.20-5.40 [facility] Comment on above: Performed By: #### C VDTBH #### [facility] [address] [place] [address] Dr. Jessica Gonzalez RDW 13.8 % Normal 11.0-15.0 [facility] Comment on above: Performed By: #### C VDTBH #### [facility] [address] [place] [address] Dr. Jessica Gonzalez SEG # 12.56 103/ul Critically high 1.40-6.50 [facility] Comment on above: Performed By: #### C VDTBH #### [facility] [address] [place] [address] Dr. Jessica Gonzalez SEG % 69.0 % Normal 43.0-75.0 [facility] Comment on above: Performed By: #### C VDTBH #### [facility] [address] [place] [id number] [address] Jessica Gonzalez WBC 18.2 103/ul Critically high 4.0-11.0 [facility] Comment on above: Performed By: #### C VDTBH #### [facility] [address] [place] [id number] CHEST WO CONon [...] CALI BRITO Date: 2021-06-13 09:23 Normal [facility] PROF CHEM 8 (BAS METB)on Anion gap [Moles/Vol] 11.7 mmol/L Normal [facility] Comment on above: Performed By: #### C VDTBH #### [facility] [address] [place] [address] [id number] [address] Jessica Gonzalez Calcium [Mass/Vol] 8.9 mg/dL Normal 8.4-10.2 [facility] Comment on above: Performed By: #### C VDTBH #### [facility] [address] [place] [address] Dr. Jessica Gonzalez Chloride [Moles/Vol] 106 mmol/L Normal 98-107 [facility] Comment on above: Performed By: #### C VDTBH #### [facility] [address] [place] [address] Dr. Jessica Gonzalez CO2 [Moles/Vol] 26.1 mmol/L Normal 22.0-30.0 [facility] Comment on above: Performed By: #### C VDTBH #### [facility] [address] [place] [address] Dr. Jessica Gonzalez Creatinine [Mass/Vol] 0.81 mg/dL Normal 0.52-1.04 [facility] Comment on above: Performed By: #### C VDTBH #### [facility] [address] [place] [address] Dr. Jessica Gonzalez EGFR-AF NEW ZEALANDER >60 Normal >=60 [facility] Comment on above: Performed By: #### C VDTBH #### [facility] [address] [place] [address] Dr. Jessica Gonzalez EGFR-NON AF NEW ZEALANDER >60 Normal >=60 [facility] Comment on above: Performed By: #### C VDTBH #### [facility] [address] [place] [address] Dr. Jessica Gonzalez Glucose [Mass/Vol] 167 mg/dL Critically high 74-[address] [facility] Comment on above: Performed By: #### C VDTBH #### [facility] [address] [address] [address] Jessica Gonzalez Potassium [Moles/Vol] 3.8 mmol/L Normal 3.4-5.0 [facility] Comment on above: Performed By: #### C VDTBH #### [facility] [address] [place] [address] Dr. Jessica Gonzalez Sodium [Moles/Vol] 140 mmol/L Normal 137-145 [facility] Comment on above: Performed By: #### C VDTBH #### [facility] [address] [address] [address] Jessica Gonzalez Urea nitrogen [Mass/Vol] 19.0 mg/dL Critically high 7.0-17.0 [facility] Comment on above: Performed By: #### C VDTBH #### [facility] [address] [place] [address] Dr. Jessica Gonzalez Urea nitrogen/Creatinine [Mass ratio] 23.5 mg/mg Normal [facility] Comment on above: Performed By: #### C VDTBH #### [facility] [address] [place] [address] Dr. Jessica Gonzalez XR CHEST 2 Von [...] CALI BRITO Date: 2021-06-13 07:00 Normal [facility] CBC W MANUAL DIFFon 06-12-19 22 ATYPICAL LYMPH # Normal [facility] Comment on above: Performed By: #### C VDTBH #### [facility] [address] [place] [address] Dr. Jessica Gonzalez ATYPICAL LYMPH % Normal [facility] Comment on above: Performed By: #### C VDTBH #### [facility] [address] [place] [address] Dr. Jessica Gonzalez BAND # 1.3 103/ul Critically high 0.0-0.3 [facility] Comment on above: Performed By: #### C VDTBH #### [facility] [address] [place] [address] Dr. Jessica Gonzalez BAND % 8 % Critically high 0-5 [facility] Comment on above: Performed By: #### C VDTBH #### [facility] [address] [address] [address] Jessica Gonzalez BASOM # 0.00 103/ul Normal 0.00-0.10 [facility] Comment on above: Performed By: #### C VDTBH #### [facility] [address] [place] [address] Dr. Jessica Gonzalez BASOM % 0.0 % Critically low 0.2-2.0 [facility] Comment on above: Performed By: #### C VDTBH #### [facility] [address] [place] [address] Dr. Jessica Gonzalez BLAST # Normal [facility] Comment on above: Performed By: #### C VDTBH #### [facility] [address] [place] [address] Dr. Jessica Gonzalez BLAST % Normal [facility] Comment on above: Performed By: #### C VDTBH #### [facility] [address] [place] [address] Dr. Jessica Gonzalez CORRECTED WBC Normal 4.0-11.0 [facility] Comment on above: Performed By: #### C VDTBH #### [facility] [address] [place] [address] Dr. Jessica Gonzalez EOS # 0.00 103/ul Normal 0.00-0.70 [facility] Comment on above: Performed By: #### C VDTBH #### [facility] [address] [place] [address] Dr. Jessica Gonzalez EOS% 0.0 % Critically low 0.9-7.0 [facility] Comment on above: Performed By: #### C VDTBH #### [facility] [address] [place] [address] Dr. Jessica Gonzalez HCT 35.4 % Critically low 36.0-48.0 [facility] Comment on above: Performed By: #### C VDTBH #### [facility] [address] [place] [address] Dr. Jessica Gonzalez HGB 11.9 g/dl Critically low 12.0-16.0 [facility] Comment on above: Performed By: #### C VDTBH #### [facility] [address] [address] [address] Jessica Gonzalez LYMPHM # 0.63 103/ul Critically low 1.20-3.80 [facility] Comment on above: Performed By: #### C VDTBH #### [facility] [address] [address] [address] Jessica Gonzalez LYMPHM% 4.0 % Critically low 20.5-60.0 [facility] Comment on above: Performed By: #### C VDTBH #### [facility] [address] [place] [address] Dr. Jessica Gonzalez MCH 33.3 pg Normal 26.7-34.0 [facility] Comment on above: Performed By: #### C VDTBH #### [facility] [address] [address] [address] Jessica Gonzalez MCHC 33.6 g/dl Normal 29.9-35.2 [facility] Comment on above: Performed By: #### C VDTBH #### [facility] [address] [address] [address] Jessica Gonzalez MCV 99.2 fL Critically high 81.0-99.0 [facility] Comment on above: Performed By: #### C VDTBH #### [facility] [address] [address] [address] Jessica Gonzalez METAMYELOCYTE # Normal [facility] Comment on above: Performed By: #### C VDTBH #### [facility] [address] [address] [address] Jessica Gonzalez METAMYELOCYTE % Normal [facility] Comment on above: Performed By: #### C VDTBH #### [facility] [address] [address] [address] Jessica Gonzalez MONOM# 0.79 103/ul Normal 0.30-0.80 [facility] Comment on above: Performed By: #### C VDTBH #### [facility] [address] [address] [address] Jessica Gonzalez MONOM% 5.0 % Normal 1.7-12.0 [facility] Comment on above: Performed By: #### C VDTBH #### [facility] [address] [address] [address] Jessica Gonzalez MPV 9.4 fL Critically low 9.5-13.5 [facility] Comment on above: Performed By: #### C VDTBH #### [facility] [address] [place] [address] Dr. Jessica Gonzalez MYELOCYTE # Normal [facility] Comment on above: Performed By: #### C VDTBH #### [facility] [address] [place] [address] Dr. Jessica Gonzalez MYELOCYTE % Normal [facility] Comment on above: Performed By: #### C VDTBH #### [facility] [address] [place] [address] Dr. Jessica Gonzalez NRBC Normal [facility] Comment on above: Performed By: #### C VDTBH #### [facility] [address] [place] [address] Dr. Jessica Gonzalez PLT 241 103/ul Normal 150-450 [facility] Comment on above: Performed By: #### C VDTBH #### [facility] [address] [place] [address] Dr. Jessica Gonzalez RBC 3.57 106/ul Critically low 4.20-5.40 [facility] Comment on above: Performed By: #### C VDTBH #### [facility] [address] [address] [address] Jessica Gonzalez RDW 13.5 % Normal 11.0-15.0 [facility] Comment on above: Performed By: #### C VDTBH #### [facility] [address] [place] [address] Dr. Jessica Gonzalez SEG # 13.11 103/ul Critically high 1.40-6.50 [facility] Comment on above: Performed By: #### C VDTBH #### [facility] [address] [address] [address] Jessica Gonzalez SEG % 83.0 % Critically high 43.0-75.0 [facility] Comment on above: Performed By: #### C VDTBH #### [facility] [address] [address] [address] Jessica Gonzalez WBC 15.8 103/ul Critically high 4.0-11.0 [facility] Comment on above: Performed By: #### C VDTBH #### [facility] [address] [address] [address] Jessica Gonzalez PROF CHEM 8 (BAS METB)on Anion gap [Moles/Vol] 12.6 mmol/L Normal [facility] Comment on above: Performed By: #### B MP #### [facility] [address] [place] [address] Dr. Jessica Gonzalez Calcium [Mass/Vol] 8.9 mg/dL Normal 8.4-10.2 [facility] Comment on above: Performed By: #### B MP #### [facility] [address] [place] [address] Dr. Jessica Gonzalez Chloride [Moles/Vol] 106 mmol/L Normal 98-107 [facility] Comment on above: Performed By: #### B MP #### [facility] [address] [address] [address] Jessica Gonzalez CO2 [Moles/Vol] 26.0 mmol/L Normal 22.0-30.0 [facility] Comment on above: Performed By: #### B MP #### [facility] [address] [place] [address] Dr. Jessica Gonzalez Creatinine [Mass/Vol] 0.72 mg/dL Normal 0.52-1.04 [facility] Comment on above: Performed By: #### B MP #### [facility] [address] [place] [address] Dr. Jessica Gonzalez EGFR-AF NEW ZEALANDER >60 Normal >=60 [facility] Comment on above: Performed By: #### B MP #### [facility] [address] [address] [address] Jessica Gonzalez EGFR-NON AF NEW ZEALANDER >60 Normal >=60 [facility] Comment on above: Performed By: #### B MP #### [facility] [address] [address] [address] Jessica Gonzalez Glucose [Mass/Vol] 132 mg/dL Critically high 74-106 [facility] Comment on above: Performed By: #### B MP #### [facility] [address] [address] [address] Jessica Gonzalez Potassium [Moles/Vol] 3.6 mmol/L Normal 3.4-5.0 [facility] Comment on above: Performed By: #### B MP #### [facility] [address] [place] [address] Dr. Jessica Gonzalez Sodium [Moles/Vol] 141 mmol/L Normal 137-145 [facility] Comment on above: Performed By: #### B MP #### [facility] [address] [address] [address] Jessica Gonzalez Urea nitrogen [Mass/Vol] 21.0 mg/dL Critically high 7.0-17.0 [facility] Comment on above: Performed By: #### B MP #### [facility] [address] [address] [address] Jessica Gonzalez Urea nitrogen/Creatinine [Mass ratio] 29.2 mg/mg Normal [facility] Comment on above: Performed By: #### B MP #### [facility] [address] [address] [address] Jessica Gonzalez CBC AUTO DIFFon 06-11-2021 BASO # 0.0 103/ul Normal 0.0-0.1 [facility] Comment on above: Performed By: #### C VDTB #### [facility] [address] [address] [address] Jessica Gonzalez Basophils/100 WBC (Bld) 0.1 % Critically low 0.2-2.0 [facility] Comment on above: Performed By: #### C VDTBH #### [facility] [address] [place] [address] Dr. Jessica Gonzalez EO # 0.0 103/ul Normal 0.0-0.7 [facility] Comment on above: Performed By: #### C VDTBH #### [facility] [address] [place] [address] Dr. Jessica Gonzalez Eosinophils/100 WBC (Bld) 0.1 % Critically low 0.9-7.0 [facility] Comment on above: Performed By: #### C VDTBH #### [facility] [address] [place] [address] Dr. Jessica Gonzalez Erythrocyte distribution width (RBC) [Ratio] 13.2 % Normal 11.0-15.0 [facility] Comment on above: Performed By: #### C VDTBH #### [facility] [address] [place] [address] Dr. Jessica Gonzalez Hematocrit (Bld) [Volume fraction] 36.3 % Normal 36.0-48.0 [facility] Comment on above: Performed By: #### C VDTBH #### [facility] [address] [place] [address] Dr. Jessica Gonzalez Hemoglobin (Bld) [Mass/Vol] 12.1 g/dL Normal 12.0-16.0 [facility] Comment on above: Performed By: #### C VDTBH #### [facility] [address] [place] [address] Dr. Jessica Gonzalez IG # 1.99 10e3/ul Critically high 0.00-0.03 [facility] Comment on above: Performed By: #### C VDTBH #### [facility] [address] [place] [address] Dr. Jessica Gonzalez IG % 11.1 % Critically high 0.0-0.5 [facility] Comment on above: Performed By: #### C VDTBH #### [facility] [address] [place] [address] Dr. Jessica Gonzalez LYMPH # 1.1 103/ul Critically low 1.2-3.8 [facility] Comment on above: Performed By: #### C VDTBH #### [facility] [address] [place] [address] Dr. Jessica Gonzalez Lymphocytes/100 WBC (Bld) 6.1 % Critically low 20.5-60.0 [facility] Comment on above: Performed By: #### C VDTBH #### [facility] [address] [place] [address] Dr. Jessica Gonzalez MANUAL DIFF REQ NO Normal [facility] Comment on above: Performed By: #### C VDTBH #### [facility] [address] [place] [address] Dr. Jessica Gonzalez MCH (RBC) [Entitic mass] 33.0 pg Normal 26.7-34.0 [facility] Comment on above: Performed By: #### C VDTBH #### [facility] [address] [place] [address] Dr. Jessica Gonzalez MCHC (RBC) [Mass/Vol] 33.3 g/dL Normal 29.9-35.2 [facility] Comment on above: Performed By: #### C VDTBH #### [facility] [address] [place] [address] Dr. Jessica Gonzalez MCV (RBC) [Entitic vol] 98.9 fL Normal 81.0-99.0 [facility] Comment on above: Performed By: #### C VDTBH #### [facility] [address] [place] [address] Dr. Jessica Gonzalez MONO # 0.5 103/ul Normal 0.3-0.8 [facility] Comment on above: Performed By: #### C VDTBH #### [facility] [address] [place] [address] Dr. Jessica Gonzalez Monocytes/100 WBC (Bld) 2.8 % Normal 1.7-12.0 [facility] Comment on above: Performed By: #### C VDTBH #### [facility] [address] [place] [address] Dr. Jessiac Gonzalez NEUT # 14.3 103/ul Critically high 1.4-6.5 [facility] Comment on above: Performed By: #### C VDTBH #### [facility] [address] [place] [address] Dr. Jessica Gonzalez Neutrophils/100 WBC (Bld) 79.8 % Critically high 43.0-75.0 [facility] Comment on above: Performed By: #### C VDTBH #### [facility] [address] [address] [address] Jessica Gonzalez Platelet mean volume (Bld) [Entitic vol] 9.6 fL Normal 9.5-13.5 [facility] Comment on above: Performed By: #### C VDTBH #### [facility] [address] [place] [address] Dr. Jessica Gonzalez PLT 237 103/ul Normal 150-450 [facility] Comment on above: Performed By: #### C VDTBH #### [facility] [address] [place] [address] Dr. Jessica Gonzalez RBC 3.67 106/ul Critically low 4.20-5.40 [facility] Comment on above: Performed By: #### C VDTBH #### [facility] [address] [place] [address] Dr. Jessica Gonzalez WBC 18.0 103/ul Critically high 4.0-11.0 [facility] Comment on above: Performed By: #### C VDTBH #### [facility] [address] [place] [address] Dr. Jessica Gonzalez CULTURE SPUTUMon 06-11-2021 CULTURE [...] S F Oxacillin <=0.25 S F Normal [facility] Comment on above: Performed By: #### B MP #### [facility] [address] [address] [address] Jessica Gonzalez PROF CHEM 8 (BAS METB)on Anion gap [Moles/Vol] 12.5 mmol/L Normal [facility] Comment on above: Performed By: #### B MP #### [facility] [address] [address] [address] Jessica Gonzalez Calcium [Mass/Vol] 9.2 mg/dL Normal 8.4-10.2 [facility] Comment on above: Performed By: #### B MP #### [facility] [address] [place] [address] Dr. Jessica Gonzalez Chloride [Moles/Vol] 107 mmol/L Normal 98-107 [facility] Comment on above: Performed By: #### B MP #### [facility] [address] [address] [address] Jessica Gonzalez CO2 [Moles/Vol] 25.3 mmol/L Normal 22.0-30.0 [facility] Comment on above: Performed By: #### B MP #### [facility] [address] [address] [address] Jessica Gonzalez Creatinine [Mass/Vol] 0.77 mg/dL Normal 0.52-1.04 [facility] Comment on above: Performed By: #### B MP #### [facility] [address] [place] [address] Dr. Jessica Gonzalez EGFR-AF NEW ZEALANDER >60 Normal >=60 [facility] Comment on above: Performed By: #### B MP #### [facility] [address] [place] [address] Dr. Jessica Gonzalez EGFR-NON AF NEW ZEALANDER >60 Normal >=60 [facility] Comment on above: Performed By: #### B MP #### [facility] [address] [address] [address] Jessica Gonzalez Glucose [Mass/Vol] 163 mg/dL Critically high 74-[address] [facility] Comment on above: Performed By: #### B MP #### [facility] [address] [address] [address] Jessica Gonzalez Potassium [Moles/Vol] 3.8 mmol/L Normal 3.4-5.0 [facility] Comment on above: Performed By: #### B MP #### [facility] [address] [address] [address] Jessica Gonzalez Sodium [Moles/Vol] 141 mmol/L Normal 137-145 [facility] Comment on above: Performed By: #### B MP #### [facility] Laboratory [address] [place] [address] Dr. Jessica Gonzalez Urea nitrogen [Mass/Vol] 19.0 mg/dL Critically high 7.0-17.0 [facility] Comment on above: Performed By: #### B MP #### [facility] [address] [address] [address] Jessica Gonzalez Urea nitrogen/Creatinine [Mass ratio] 24.7 mg/mg Normal [facility] Comment on above: Performed By: #### B MP #### [facility] [address] [place] [address] Dr. Jessica Gonzalez VANCOMYCIN TROUGHon 06-11-19 22 VANCOMYCIN TROUGH 9.1 ug/ml Normal 5.0-20.0 [facility] Comment on above: Performed By: #### V ANCT #### [facility] [address] [place] [address] Dr. Jessica Gonzalez CBC W MANUAL DIFFon 06-10-19 22 ATYPICAL LYMPH # Normal [facility] Comment on above: Performed By: #### B MP #### [facility] [address] [place] [address] Dr. Jessica Gonzalez ATYPICAL LYMPH % Normal [facility] Comment on above: Performed By: #### B MP #### [facility] [address] [place] [address] Dr. Jessica Gonzalez BAND # 1.2 103/ul Critically high 0.0-0.3 [facility] Comment on above: Performed By: #### B MP #### [facility] [address] [place] [address] Dr. Jessica Gonzalez BAND % 6 % Critically high 0-5 [facility] Comment on above: Performed By: #### B MP #### [facility] [address] [place] [address] Dr. Jessica Gonzalez BASOM # 0.00 103/ul Normal 0.00-0.10 [facility] Comment on above: Performed By: #### B MP #### [facility] [address] [place] [address] Dr. Jessica Gonzalez BASOM % 0.0 % Critically low 0.2-2.0 [facility] Comment on above: Performed By: #### B MP #### [facility] [address] [place] [address] Dr. Jessica Gonzalez BLAST # Normal [facility] Comment on above: Performed By: #### B MP #### [facility] [address] [place] [address] Dr. Jessica Gonzalez BLAST % Normal [facility] Comment on above: Performed By: #### B MP #### [facility] [address] [place] [address] Dr. Jessica Gonzalez CORRECTED WBC Normal 4.0-11.0 [facility] Comment on above: Performed By: #### B MP #### [facility] [address] [place] [address] Dr. Jessica Gonzalez EOS # 0.00 103/ul Normal 0.00-0.70 [facility] Comment on above: Performed By: #### B MP #### [facility] [address] [place] [address] Dr. Jessica Gonzalez EOS% 0.0 % Critically low 0.9-7.0 [facility] Comment on above: Performed By: #### B MP #### [facility] [address] [place] [address] Dr. Jessica Gonzalez HCT 34.2 % Critically low 36.0-48.0 [facility] Comment on above: Performed By: #### B MP #### [facility] [address] [place] [address] Dr. Jessica Gonzalez HGB 11.6 g/dl Critically low 12.0-16.0 [facility] Comment on above: Performed By: #### B MP #### [facility] [address] [place] [address] Dr. Jessica Gonzalez LYMPHM # 0.60 103/ul Critically low 1.20-3.80 [facility] Comment on above: Performed By: #### B MP #### [facility] [address] [place] [address] Dr. Jessica Gonzalez LYMPHM% 3.0 % Critically low 20.5-60.0 [facility] Comment on above: Performed By: #### B MP #### [facility] [address] [place] [address] Dr. Jessica Gonzalez MCH 33.5 pg Normal 26.7-34.0 [facility] Comment on above: Performed By: #### B MP #### [facility] [address] [place] [address] Dr. Jessica Gonzalez MCHC 33.9 g/dl Normal 29.9-35.2 [facility] Comment on above: Performed By: #### B MP #### [facility] [address] [place] [address] Dr. Jessica Gonzalez MCV 98.8 fL Normal 81.0-99.0 [facility] Comment on above: Performed By: #### B MP #### [facility] [address] [place] [address] Dr. Jessica Gonzalez METAMYELOCYTE # 0.2 103/ul Normal [facility] Comment on above: Performed By: #### B MP #### [facility] [address] [place] [address] Dr. Jessica Gonzalez METAMYELOCYTE % 1 % Normal [facility] Comment on above: Performed By: #### B MP #### [facility] [address] [place] [address] Dr. Jessica Gonzalez MONOM# 0.60 103/ul Normal 0.30-0.80 [facility] Comment on above: Performed By: #### B MP #### [facility] [address] [place] [address] Dr. Jessica Gonzalez MONOM% 3.0 % Normal 1.7-12.0 [facility] Comment on above: Performed By: #### B MP #### [facility] [address] [place] [address] Dr. Jessica Gonzalez MPV 9.7 fL Normal 9.5-13.5 [facility] Comment on above: Performed By: #### B MP #### [facility] [address] [place] [address] Dr. Jessica Gonzalez MYELOCYTE # Normal [facility] Comment on above: Performed By: #### B MP #### [facility] [address] [place] [address] Dr. Jessica Gonzalez MYELOCYTE % Normal [facility] Comment on above: Performed By: #### B MP #### [facility] [address] [place] [address] Dr. Jessica Gonzalez NRBC Normal [facility] Comment on above: Performed By: #### B MP #### [facility] [address] [place] [address] Dr. Jessica Gonzalez PLT 233 103/ul Normal 150-450 [facility] Comment on above: Performed By: #### B MP #### [facility] [address] [place] [address] Dr. Jessica Gonzalez RBC 3.46 106/ul Critically low 4.20-5.40 [facility] Comment on above: Performed By: #### B MP #### [facility] [address] [place] [address] Dr. Jessica Gonzalez RDW 13.1 % Normal 11.0-15.0 [facility] Comment on above: Performed By: #### B MP #### [facility] [address] [place] [address] Dr. Jessica Gonzalez SEG # 17.31 103/ul Critically high 1.40-6.50 [facility] Comment on above: Performed By: #### B MP #### [facility] [address] [place] [address] Dr. Jessica Gonzalez SEG % 87.0 % Critically high 43.0-75.0 [facility] Comment on above: Performed By: #### B MP #### [facility] [address] [place] [address] Dr. Jessica Gonzalez WBC 19.9 103/ul Critically high 4.0-11.0 [facility] Comment on above: Performed By: #### B MP #### [facility] [address] [place] [address] Dr. Jessica Gonzalez PROF CHEM 8 (BAS METB)on Anion gap [Moles/Vol] 11.7 mmol/L Normal [facility] Comment on above: Performed By: #### C VDTBH #### [facility] [address] [place] [address] Dr. Jessica Gonzalez Calcium [Mass/Vol] 9.5 mg/dL Normal 8.4-10.2 [facility] Comment on above: Performed By: #### C VDTBH #### [facility] [address] [place] [address] Dr. Jessica Gonzalez Chloride [Moles/Vol] 104 mmol/L Normal 98-107 [facility] Comment on above: Performed By: #### C VDTBH #### [facility] [address] [place] [address] Dr. Jessica Gonzalez CO2 [Moles/Vol] 27.0 mmol/L Normal 22.0-30.0 [facility] Comment on above: Performed By: #### C VDTBH #### [facility] [address] [place] [address] Dr. Jessica Gonzalez Creatinine [Mass/Vol] 0.69 mg/dL Normal 0.52-1.04 [facility] Comment on above: Performed By: #### C VDTBH #### [facility] [address] [address] [address] Jessica Gonzalez EGFR-AF NEW ZEALANDER >60 Normal >=60 [facility] Comment on above: Performed By: #### C VDTBH #### [facility] [address] [place] [address] Dr. Jessica Gonzalez EGFR-NON AF NEW ZEALANDER >60 Normal >=60 [facility] Comment on above: Performed By: #### C VDTBH #### [facility] [address] [place] [address] Dr. Jessica Gonzalez Glucose [Mass/Vol] 163 mg/dL Critically high 74-[address] [facility] Comment on above: Performed By: #### C VDTBH #### [facility] [address] [place] [address] Dr. Jessica Gonzalez Potassium [Moles/Vol] 3.7 mmol/L Normal 3.4-5.0 [facility] Comment on above: Performed By: #### C VDTBH #### [facility] [address] [place] [address] Dr. Jessica Gonzalez Sodium [Moles/Vol] 139 mmol/L Normal 137-145 [facility] Comment on above: Performed By: #### C VDTBH #### [facility] [address] [place] [address] Dr. Jessica Gonzalez Urea nitrogen [Mass/Vol] 20.0 mg/dL Critically high 7.0-17.0 [facility] Comment on above: Performed By: #### C VDTBH #### [facility] [address] [place] [address] Dr. Jessica Gonzalez Urea nitrogen/Creatinine [Mass ratio] 29.0 mg/mg Normal [facility] Comment on above: Performed By: #### C VDTBH #### [facility] [address] [place] [address] Dr. Jessica Gonzalez XR CHEST 2 Von [...] CALI BRITO Date: 2021-06-10 07:02 Normal [facility] CBC AUTO DIFFon 06-09-2021 BASO # 0.1 103/ul Normal 0.0-0.1 [facility] Comment on above: Performed By: #### C BC #### [facility] [address] [place] [address] Dr. Jessica Gonzalez Basophils/100 WBC (Bld) 0.4 % Normal 0.2-2.0 [facility] Comment on above: Performed By: #### C BC #### [facility] [address] [place] [address] Dr. Jessica Gonzalez EO # 0.0 103/ul Normal 0.0-0.7 [facility] Comment on above: Performed By: #### C BC #### [facility] [address] [place] [address] Dr. Jessica Gonzalez Eosinophils/100 WBC (Bld) 0.0 % Critically low 0.9-7.0 [facility] Comment on above: Performed By: #### C BC #### [facility] [address] [place] [address] Dr. Jessica Gonzalez Erythrocyte distribution width (RBC) [Ratio] 12.8 % Normal 11.0-15.0 [facility] Comment on above: Performed By: #### C BC #### [facility] [address] [place] [address] Dr. Jessica Gonzalez Hematocrit (Bld) [Volume fraction] 37.2 % Normal 36.0-48.0 [facility] Comment on above: Performed By: #### C BC #### [facility] [address] [place] [address] Dr. Jessica Gonzalez Hemoglobin (Bld) [Mass/Vol] 12.6 g/dL Normal 12.0-16.0 [facility] Comment on above: Performed By: #### C BC #### [facility] [address] [address] [address] Jessica Gonzalez IG # 0.22 10e3/ul Critically high 0.00-0.03 [facility] Comment on above: Performed By: #### C BC #### [facility] [address] [place] [address] Dr. Jessica Gonzalez IG % 1.2 % Critically high 0.0-0.5 [facility] Comment on above: Performed By: #### C BC #### [facility] [address] [place] [address] Dr. Jessica Gonzalez LYMPH # 0.8 103/ul Critically low 1.2-3.8 [facility] Comment on above: Performed By: #### C BC #### [facility] [address] [place] [address] Dr. Jessica Gonzalez Lymphocytes/100 WBC (Bld) 4.2 % Critically low 20.5-60.0 [facility] Comment on above: Performed By: #### C BC #### [facility] [address] [place] [address] Dr. Jessica Gonzalez MANUAL DIFF REQ NO Normal [facility] Comment on above: Performed By: #### C BC #### [facility] [address] [place] [address] Dr. Jessica Gonzalez MCH (RBC) [Entitic mass] 33.4 pg Normal 26.7-34.0 [facility] Comment on above: Performed By: #### C BC #### [facility] [address] [place] [address] Dr. Jessica Gonzalez MCHC (RBC) [Mass/Vol] 33.9 g/dL Normal 29.9-35.2 [facility] Comment on above: Performed By: #### C BC #### [facility] [address] [place] [address] Dr. Jessica Gonzalez MCV (RBC) [Entitic vol] 98.7 fL Normal 81.0-99.0 [facility] Comment on above: Performed By: #### C BC #### [facility] [address] [address] [address] Jessica Gonzalez MONO # 0.4 103/ul Normal 0.3-0.8 [facility] Comment on above: Performed By: #### C BC #### [facility] [address] [address] [address] Jessica Gonzalez Monocytes/100 WBC (Bld) 2.3 % Normal 1.7-12.0 [facility] Comment on above: Performed By: #### C BC #### [facility] [address] [place] [address] Dr. Jessica Gonzalez NEUT # 17.0 103/ul Critically high 1.4-6.5 [facility] Comment on above: Performed By: #### C BC #### [facility] [address] [place] [address] Dr. Jessica Gonzalez Neutrophils/100 WBC (Bld) 91.9 % Critically high 43.0-75.0 [facility] Comment on above: Performed By: #### C BC #### [facility] [address] [place] [address] Dr. Jessica Gonzalez Platelet mean volume (Bld) [Entitic vol] 9.9 fL Normal 9.5-13.5 [facility] Comment on above: Performed By: #### C BC #### [facility] [address] [place] [address] Dr. Jessica Gonzalez PLT 247 103/ul Normal 150-450 [facility] Comment on above: Performed By: #### C BC #### [facility] [address] [place] [address] Dr. Jessica Gonzalez RBC 3.77 106/ul Critically low 4.20-5.40 [facility] Comment on above: Performed By: #### C BC #### [facility] [address] [place] [address] Dr. Jessica Gonzalez WBC 18.5 103/ul Critically high 4.0-11.0 [facility] Comment on above: Performed By: #### C BC #### [facility] [address] [place] [address] Dr. Jessica Gonzalez PROF CHEM 8 (BAS METB)on Anion gap [Moles/Vol] 15.3 mmol/L Normal [facility] Comment on above: Performed By: #### C VDTBH #### [facility] [address] [place] [address] Dr. Jessica Gonzalez Calcium [Mass/Vol] 9.8 mg/dL Normal 8.4-10.2 [facility] Comment on above: Performed By: #### C VDTBH #### [facility] [address] [place] [address] Dr. Jessica Gonzalez Chloride [Moles/Vol] 102 mmol/L Normal 98-107 [facility] Comment on above: Performed By: #### C VDTBH #### [facility] [address] [place] [address] Dr. Jessica Gonzalez CO2 [Moles/Vol] 24.1 mmol/L Normal 22.0-30.0 [facility] Comment on above: Performed By: #### C VDTBH #### [facility] [address] [place] [address] Dr. Jessica Gonzalez Creatinine [Mass/Vol] 0.83 mg/dL Normal 0.52-1.04 [facility] Comment on above: Performed By: #### C VDTBH #### [facility] [address] [place] [address] Dr. Jessica Gonzalez EGFR-AF NEW ZEALANDER >60 Normal >=60 [facility] Comment on above: Performed By: #### C VDTBH #### [facility] [address] [place] [address] Dr. Jessica Gonzalez EGFR-NON AF NEW ZEALANDER >60 Normal >=60 [facility] Comment on above: Performed By: #### C VDTBH #### [facility] [address] [place] [address] Dr. Jessica Gonzalez Glucose [Mass/Vol] 165 mg/dL Critically high 74-106 [facility] Comment on above: Performed By: #### C VDTBH #### [facility] [address] [place] [address] Dr. Jessica Gonzalez Potassium [Moles/Vol] 3.4 mmol/L Normal 3.4-5.0 [facility] Comment on above: Performed By: #### C VDTBH #### [facility] [address] [place] [address] Dr. Jessica Gonzalez Sodium [Moles/Vol] 138 mmol/L Normal 137-145 [facility] Comment on above: Performed By: #### C VDTBH #### [facility] [address] [place] [address] Dr. Jessica Gonzalez Urea nitrogen [Mass/Vol] 21.0 mg/dL Critically high 7.0-17.0 [facility] Comment on above: Performed By: #### C VDTBH #### [facility] [address] [place] [address] Dr. Jessica Gonzalez Urea nitrogen/Creatinine [Mass ratio] 25.3 mg/mg Normal [facility] Comment on above: Performed By: #### C VDTBH #### [facility] [address] [place] [address] Dr. Jessica Gonzalez RESPIRATORY PANEL PLUSon Adenovirus Not detected Normal NOT DETECTED [facility] Comment on above: Performed By: #### S PUTGS #### [facility] [address] [place] [address] Dr. Jessica Jack. Parapertusis Not detected Normal NOT DETECTED [facility] Comment on above: Performed By: #### S PUTGS #### [facility] [address] [place] [address] Dr. Jessica Gonzalez B. Pertussis Not detected Normal NOT DETECTED [facility] Comment on above: Performed By: #### S PUTGS #### [facility] [address] [place] [address] Dr. Jessica Gonzalez Chlamydia Pneumoniae Not detected Normal NOT DETECTED [facility] Comment on above: Performed By: #### S PUTGS #### [facility] [address] [place] [address] Dr. Jessica Gonzalez Coronavirus 229E Not detected Normal NOT DETECTED [facility] Comment on above: Performed By: #### S PUTGS #### [facility] [address] [address] [address] Jessica Gonzalez Coronavirus HKU1 Not detected Normal NOT DETECTED [facility] Comment on above: Performed By: #### S PUTGS #### [facility] [address] [address] [address] Jessica Gonzalez Coronavirus NL63 Not detected Normal NOT DETECTED [facility] Comment on above: Performed By: #### S PUTGS #### [facility] [address] [address] [address] Jessica Gonzalez Coronavirus OC43 Not detected Normal NOT DETECTED [facility] Comment on above: Performed By: #### S PUTGS #### [facility] [address] [place] [address] Dr. Jessica Gonzalez Influenza A H1 2009 Not detected Normal NOT DETECTED [facility] Comment on above: Performed By: #### S PUTGS #### [facility] [address] [place] [address] Dr. Jessica Gonzalez Influenza A H3 Not detected Normal NOT DETECTED [facility] Comment on above: Performed By: #### S PUTGS #### [facility] [address] [place] [address] Dr. Jessica Gonzalez Influenza B Not detected Normal NOT DETECTED [facility] Comment on above: Performed By: #### S PUTGS #### [facility] [address] [place] [address] Dr. Jessica Gonzalez Metapneumovirus Not detected Normal NOT DETECTED [facility] Comment on above: Performed By: #### S PUTGS #### [facility] [address] [address] [address] Jessica Gonzalez Mycoplas. Pneumoniae Not detected Normal NOT DETECTED [facility] Comment on above: Performed By: #### S PUTGS #### [facility] [address] [place] [address] Dr. Jessica Gonzalez Parainfluenza 1 Not detected Normal NOT DETECTED [facility] Comment on above: Performed By: #### S PUTGS #### [facility] [address] [place] [address] Dr. Jessica Gonzalez Parainfluenza 2 Not detected Normal NOT DETECTED [facility] Comment on above: Performed By: #### S PUTGS #### [facility] [address] [place] [address] Dr. Jessica Gonzalez Parainfluenza 3 Not detected Normal NOT DETECTED [facility] Comment on above: Performed By: #### S PUTGS #### [facility] [address] [place] [address] Dr. Jessica Gonzalez Parainfluenza 4 Not detected Normal NOT DETECTED [facility] Comment on above: Performed By: #### S PUTGS #### [facility] [address] [place] [address] Dr. Jessica Gonzalez Rhino/Enterovirus Not detected Normal NOT DETECTED [facility] Comment on above: Performed By: #### S PUTGS #### [facility] [address] [place] [address] Dr. Jessica Gonzalez RP2 Header 1 RESPIRATORY PANEL: VIRUSES Normal [facility] Comment on above: Performed By: #### S PUTGS #### [facility] [address] [place] [address] Dr. Jessica Gonzalez RP2 Header 2 RESPIRATORY PANEL: BACTERIA Normal [facility] Comment on above: Performed By: #### S PUTGS #### [facility] [address] [place] [address] Dr. Jessica Gonzalez RSV Not detected Normal NOT DETECTED [facility] Comment on above: Performed By: #### S PUTGS #### [facility] [address] [place] [address] Dr. Jessica Gonzalez SARS-CoV-2 (COVID-19) RNA MASON+probe Ql (Unsp spec) Not detected Normal NOT DETECTED [facility] Comment on above: Performed By: #### S PUTGS #### [facility] [address] [place] [address] Dr. Jessica Gonzalez CBC W MANUAL DIFFon 06-08-19 22 ATYPICAL LYMPH # Normal [facility] Comment on above: Performed By: #### C VDTBH #### [facility] [address] [address] [address] Jessica Gonzalez ATYPICAL LYMPH % Normal [facility] Comment on above: Performed By: #### C VDTBH #### [facility] [address] [address] [address] Jessica Gonzalez BAND # 1.2 103/ul Critically high 0.0-0.3 [facility] Comment on above: Performed By: #### C VDTBH #### [facility] [address] [address] [address] Jessica Gonzalez BAND % 7 % Critically high 0-5 [facility] Comment on above: Performed By: #### C VDTBH #### [facility] [address] [place] [address] Dr. Jessica Gonzalez BASOM # 0.00 103/ul Normal 0.00-0.10 [facility] Comment on above: Performed By: #### C VDTBH #### [facility] [address] [place] [address] Dr. Jessica Gonzalez BASOM % 0.0 % Critically low 0.2-2.0 [facility] Comment on above: Performed By: #### C VDTBH #### [facility] [address] [place] [address] Dr. Jessica Gonzalez BLAST # Normal [facility] Comment on above: Performed By: #### C VDTBH #### [facility] [address] [place] [address] Dr. Jessica Gonzalez BLAST % Normal [facility] Comment on above: Performed By: #### C VDTBH #### [facility] [address] [address] [address] Jessica Gonzalez CORRECTED WBC Normal 4.0-11.0 [facility] Comment on above: Performed By: #### C VDTBH #### [facility] [address] [place] [address] Dr. Jessica Gonzalez EOS # 0.00 103/ul Normal 0.00-0.70 [facility] Comment on above: Performed By: #### C VDTBH #### [facility] [address] [address] [address] Jessica Gonzalez EOS% 0.0 % Critically low 0.9-7.0 [facility] Comment on above: Performed By: #### C VDTBH #### [facility] [address] [address] [address] Jessica Gonzalez HCT 37.1 % Normal 36.0-48.0 [facility] Comment on above: Performed By: #### C VDTBH #### [facility] [address] [address] [address] Jessica Gonzalez HGB 12.3 g/dl Normal 12.0-16.0 [facility] Comment on above: Performed By: #### C VDTBH #### [facility] [address] [address] [address] Jessica Gonzalez LYMPHM # 1.17 103/ul Critically low 1.20-3.80 [facility] Comment on above: Performed By: #### C VDTBH #### [facility] [address] [address] [address] Jessica Gonzalez LYMPHM% 7.0 % Critically low 20.5-60.0 [facility] Comment on above: Performed By: #### C VDTBH #### [facility] [address] [address] [address] Jessica Gonzalez MCH 33.2 pg Normal 26.7-34.0 [facility] Comment on above: Performed By: #### C VDTBH #### [facility] [address] [address] [address] Jessica Gonzalez MCHC 33.2 g/dl Normal 29.9-35.2 [facility] Comment on above: Performed By: #### C VDTBH #### [facility] [address] [address] [address] Jessica Gonzalez MCV 100.3 fL Critically high 81.0-99.0 [facility] Comment on above: Performed By: #### C VDTBH #### [facility] [address] [place] [address] Dr. Jessica Gonzalez METAMYELOCYTE # Normal [facility] Comment on above: Performed By: #### C VDTBH #### [facility] [address] [place] [address] Dr. Jessica Gonzalez METAMYELOCYTE % Normal [facility] Comment on above: Performed By: #### C VDTBH #### [facility] [address] [place] [address] Dr. Jessica Gonzalez MONOM# 0.67 103/ul Normal 0.30-0.80 [facility] Comment on above: Performed By: #### C VDTBH #### [facility] [address] [place] [address] Dr. Jessica Gonzalez MONOM% 4.0 % Normal 1.7-12.0 [facility] Comment on above: Performed By: #### C VDTBH #### [facility] [address] [place] [address] Dr. Jessica Gonzalez MPV 9.5 fL Normal 9.5-13.5 [facility] Comment on above: Performed By: #### C VDTBH #### [facility] [address] [place] [address] Dr. Jessica Gonzalez MYELOCYTE # Normal [facility] Comment on above: Performed By: #### C VDTB #### [facility] [address] [place] [address] Dr. Jessica Gonzalez MYELOCYTE % Normal [facility] Comment on above: Performed By: #### C VDTBH #### [facility] [address] [place] [address] Dr. Jessica Gonzalez NRBC Normal [facility] Comment on above: Performed By: #### C VDTBH #### [facility] [address] [place] [address] Dr. Jessica Gonzalez PLT 206 103/ul Normal 150-450 [facility] Comment on above: Performed By: #### C VDTBH #### [facility] [address] [place] [address] Dr. Jessica Gonzalez RBC 3.70 106/ul Critically low 4.20-5.40 [facility] Comment on above: Performed By: #### C VDTBH #### [facility] [address] [address] [address] Jessica Gonzalez RDW 12.4 % Normal 11.0-15.0 [facility] Comment on above: Performed By: #### C VDTBH #### [facility] [address] [address] [address] Jessica Gonzalez SEG # 13.69 103/ul Critically high 1.40-6.50 [facility] Comment on above: Performed By: #### C VDTBH #### [facility] [address] [address] [address] Jessica Gonzalez SEG % 82.0 % Critically high 43.0-75.0 [facility] Comment on above: Performed By: #### C VDTBH #### [facility] [address] [address] [address] Jessica Gonzalez WBC 16.7 103/ul Critically high 4.0-11.0 [facility] Comment on above: Performed By: #### C VDTBH #### [facility] [address] [place] [address] Dr. Jessica Gonzalez PROF CHEM 8 (BAS METB)on Anion gap [Moles/Vol] 14.4 mmol/L Normal [facility] Comment on above: Performed By: #### S PUTGS #### [facility] [address] [place] [address] Dr. Jessica Gonzalez Calcium [Mass/Vol] 9.8 mg/dL Normal 8.4-10.2 [facility] Comment on above: Performed By: #### S PUTGS #### [facility] [address] [place] [address] Dr. Jessica Gonzalez Chloride [Moles/Vol] 100 mmol/L Normal 98-107 [facility] Comment on above: Performed By: #### S PUTGS #### [facility] [address] [address] [address] Jessica Gonzalez CO2 [Moles/Vol] 25.7 mmol/L Normal 22.0-30.0 [facility] Comment on above: Performed By: #### S PUTGS #### [facility] [address] [place] [address] Dr. Jessica Gonzalez Creatinine [Mass/Vol] 0.87 mg/dL Normal 0.52-1.04 [facility] Comment on above: Performed By: #### S PUTGS #### [facility] [address] [place] [address] Dr. Jessica Gonzalez EGFR-AF NEW ZEALANDER >60 Normal >=60 [facility] Comment on above: Performed By: #### S PUTGS #### [facility] [address] [place] [address] Dr. Jessica Gonzalez EGFR-NON AF NEW ZEALANDER >60 Normal >=60 [facility] Comment on above: Performed By: #### S PUTGS #### [facility] [address] [place] [address] Dr. Jessica Gonzalez Glucose [Mass/Vol] 194 mg/dL Critically high 74-[address] [facility] Comment on above: Performed By: #### S PUTGS #### [facility] [address] [place] [address] Dr. Jessica Gonzalez Potassium [Moles/Vol] 3.1 mmol/L Critically low 3.4-5.0 [facility] Comment on above: Performed By: #### S PUTGS #### [facility] [address] [place] [address] Dr. Jessica Gonzalez Sodium [Moles/Vol] 137 mmol/L Normal 137-145 [facility] Comment on above: Performed By: #### S PUTGS #### [facility] [address] [place] [address] Dr. Jessica Gonzalez Urea nitrogen [Mass/Vol] 17.0 mg/dL Normal 7.0-17.0 [facility] Comment on above: Performed By: #### S PUTGS #### [facility] [address] [place] [address] Dr. Jessica Gonzalez Urea nitrogen/Creatinine [Mass ratio] 19.5 mg/mg Normal [facility] Comment on above: Performed By: #### S PUTGS #### [facility] [address] [address] [address] Jessica Gonzalez SPUTUM GRAM STAINon 06-08-19 COMMENTS Normal [facility] Comment on above: Performed By: #### S PUTGS #### [facility] [address] [address] [address] Jessica Gonzalez DIPHTHEROIDS Normal [facility] Comment on above: Performed By: #### S PUTGS #### [facility] [address] [address] [address] Jessica Gonzalez EPITHELIALS <25 Normal [facility] Comment on above: Performed By: #### S PUTGS #### [facility] [address] [place] [address] Dr. Jessica Gonzalez FUNGAL ELEMENTS Normal [facility] Comment on above: Performed By: #### S PUTGS #### [facility] [address] [address] [address] Jessica Gonzalez GRAM NEG BACILLI [facility] Comment on above: Performed By: #### S PUTGS #### [facility] [address] [address] [address] Jessica Gonzalez GRAM NEG DIPPLOCOCCI Normal [facility] Comment on above: Performed By: #### S PUTGS #### [facility] [address] [place] [address] Dr. Jessica Gonzalez GRAM POS BACILLI RARE Normal [facility] Comment on above: Performed By: #### S PUTGS #### [facility] [address] [address] [address] Jessica Gonzalez GRAM POSITIVE COCCI FEW Normal [facility] Comment on above: Performed By: #### S PUTGS #### [facility] [address] [address] [address] Jessica Gonzalez WBC (Bld) [#/Vol] 10*3/uL [facility] Comment on above: Performed By: #### S PUTGS #### [facility] [address] [place] [address] Dr. Jessica Gonzalez XR CHEST 2 Von [...] CALI BRITO Date: 2021-06-08 06:56 Normal [facility] CBC AUTO DIFFon 06-07-2021 BASO # 0.0 103/ul Normal 0.0-0.1 [facility] Comment on above: Performed By: #### C BC #### [facility] [address] [place] [address] Dr. Jessica Gonzalez Basophils/100 WBC (Bld) 0.3 % Normal 0.2-2.0 [facility] Comment on above: Performed By: #### C BC #### [facility] [address] [place] [address] Dr. Jessica Gonzalez EO # 0.1 103/ul Normal 0.0-0.7 [facility] Comment on above: Performed By: #### C BC #### [facility] [address] [place] [address] Dr. Jessica Gonzalez Eosinophils/100 WBC (Bld) 0.5 % Critically low 0.9-7.0 [facility] Comment on above: Performed By: #### C BC #### [facility] [address] [place] [address] Dr. Jessica Gonzalez Erythrocyte distribution width (RBC) [Ratio] 12.4 % Normal 11.0-15.0 [facility] Comment on above: Performed By: #### C BC #### [facility] [address] [place] [address] Dr. Jessica Gonzalez Hematocrit (Bld) [Volume fraction] 40.5 % Normal 36.0-48.0 [facility] Comment on above: Performed By: #### C BC #### [facility] [address] [place] [address] Dr. Jessica Gonzalez Hemoglobin (Bld) [Mass/Vol] 14.0 g/dL Normal 12.0-16.0 [facility] Comment on above: Performed By: #### C BC #### [facility] [address] [address] [address] Jessica Gonzalez IG # 0.26 10e3/ul Critically high 0.00-0.03 [facility] Comment on above: Performed By: #### C BC #### [facility] [address] [place] [address] Dr. Jessica Gonzalez IG % 1.7 % Critically high 0.0-0.5 [facility] Comment on above: Performed By: #### C BC #### [facility] [address] [address] [address] Jessica Gonzalez LYMPH # 0.7 103/ul Critically low 1.2-3.8 [facility] Comment on above: Performed By: #### C BC #### [facility] [address] [place] [address] Dr. Jessica Gonzalez Lymphocytes/100 WBC (Bld) 4.6 % Critically low 20.5-60.0 [facility] Comment on above: Performed By: #### C BC #### [facility] [address] [place] [address] Dr. Jessica Gonzalez MANUAL DIFF REQ NO Normal [facility] Comment on above: Performed By: #### C BC #### [facility] [address] [place] [address] Dr. Jessica Gonzalez MCH (RBC) [Entitic mass] 34.2 pg Critically high 26.7-34.0 [facility] Comment on above: Performed By: #### C BC #### [facility] [address] [place] [address] Dr. Jessica Gonzalez MCHC (RBC) [Mass/Vol] 34.6 g/dL Normal 29.9-35.2 [facility] Comment on above: Performed By: #### C BC #### [facility] [address] [place] [address] Dr. Jessica Gonzalez MCV (RBC) [Entitic vol] 99.0 fL Normal 81.0-99.0 [facility] Comment on above: Performed By: #### C BC #### [facility] [address] [place] [address] Dr. Jessica Gonzalez MONO # 0.4 103/ul Normal 0.3-0.8 [facility] Comment on above: Performed By: #### C BC #### [facility] [address] [place] [address] Dr. Jessica Gonzalez Monocytes/100 WBC (Bld) 2.5 % Normal 1.7-12.0 [facility] Comment on above: Performed By: #### C BC #### [facility] [address] [place] [address] Dr. Jessica Gonzalez NEUT # 14.0 103/ul Critically high 1.4-6.5 [facility] Comment on above: Performed By: #### C BC #### [facility] [address] [place] [address] Dr. Jessica Gonzalez Neutrophils/100 WBC (Bld) 90.4 % Critically high 43.0-75.0 [facility] Comment on above: Performed By: #### C BC #### [facility] [address] [place] [address] Dr. Jessica Gonzalez Platelet mean volume (Bld) [Entitic vol] 9.6 fL Normal 9.5-13.5 [facility] Comment on above: Performed By: #### C BC #### [facility] [address] [place] [address] Dr. Jessica Gonzalez PLT 168 103/ul Normal 150-450 [facility] Comment on above: Performed By: #### C BC #### [facility] [address] [place] [address] Dr. Jessica Gonzalez RBC 4.09 106/ul Critically low 4.20-5.40 [facility] Comment on above: Performed By: #### C BC #### [facility] [address] [place], [place] [address] Dr. Jessica Gonzalez WBC 15.5 103/ul Critically high 4.0-11.0 [facility] Comment on above: Performed By: #### C BC #### [facility] [address] [place], [place] [address] Dr. Jessica Gonzalez CTA CHEST WO W [...] MULU GARCIA Date: 2021-06-07 05:08 Normal [facility] CULTURE BLOODon 06-07-2021 Microscopic examination of blood, culture Culture Observations: No growth at 5 days. Normal [facility] Comment on above: Performed By: #### B MP #### [facility] [address] [place], [place] [address] Dr. Jessica Gonzalez [facility]on SARS-CoV-2 (COVID-19) RNA MASON+probe Ql (Unsp spec) Not detected Normal NOT DETECTED [facility] Comment on above: Result Comment: When diagnostic [...] for this test is supported by the W[employer] and Human Service's declaration that [...] used). Performed By: #### C VDTBH #### [facility] [address] [place] [address] Dr. Jessica Gonzalez LACTATE/LACTIC ACIDon 2021 Lactate [Moles/Vol] 1.8 mmol/L Normal 0.7-2.0 [facility] Comment on above: Performed By: #### C VDTB #### [facility] [address] [place] [address] Dr. Jessica Gonzalez PROF 14(COMP METB)on 022 Albumin [Mass/Vol] 3.1 g/dL Critically low 3.5-5.0 [facility] Comment on above: Performed By: #### C MP #### [facility] [address] [place] [address] Dr. Jessica Gonzalez Albumin/Globulin [Mass ratio] 0.8 {ratio} Normal [facility] Comment on above: Performed By: #### C MP #### [facility] [address] [place] [address] Dr. Jessica Gonzalez ALP [Catalytic activity/Vol] 89 U/L Normal 38-126 [facility] Comment on above: Performed By: #### C MP #### [facility] [address] [place] [address] Dr. Jessica Gonzalez ALT [Catalytic activity/Vol] 21 U/L Normal 9-52 [facility] Comment on above: Performed By: #### C MP #### [facility] [address] [address] [address] Jessica Gonzalez Anion gap [Moles/Vol] 13.2 mmol/L Normal [facility] Comment on above: Performed By: #### C MP #### [facility] [address] [address] [address] Jessica Gonzalez AST [Catalytic activity/Vol] 15 U/L Normal 14-36 [facility] Comment on above: Performed By: #### C MP #### [facility] [address] [address] [address] Jessica Gonzalez Bilirubin [Mass/Vol] 1.2 mg/dL Normal 0.2-1.3 [facility] Comment on above: Performed By: #### C MP #### [facility] [address] [address] [address] Jessica Gonzalez Calcium [Mass/Vol] 9.0 mg/dL Normal 8.4-10.2 [facility] Comment on above: Performed By: #### C MP #### [facility] [address] [address] [address] Jessica Gonzalez Chloride [Moles/Vol] 102 mmol/L Normal 98-107 [facility] Comment on above: Performed By: #### C MP #### [facility] [address] [address] [address] Jessica Gonzalez CO2 [Moles/Vol] 27.4 mmol/L Normal 22.0-30.0 [facility] Comment on above: Performed By: #### C MP #### [facility] [address] [address] [address] Jessica Gonzalez Creatinine [Mass/Vol] 1.05 mg/dL Critically high 0.52-1.04 [facility] Comment on above: Performed By: #### C MP #### [facility] [address] [address] [address] Jessica Gonzalez EGFR-AF NEW ZEALANDER >60 Normal >=60 [facility] Comment on above: Performed By: #### C MP #### [facility] [address] [address] [address] Jessica Gonzalez EGFR-NON AF NEW ZEALANDER 53 mL/min/1.73m2 Critically low >=60 [facility] Comment on above: Performed By: #### C MP #### [facility] [address] [address] [address] Jessica Gonzalez Globulin (S) [Mass/Vol] 3.9 g/dL Normal [facility] Comment on above: Performed By: #### C MP #### [facility] [address] [address] [address] Jessica Gonzalez Glucose [Mass/Vol] 133 mg/dL Critically high 74-106 [facility] Comment on above: Performed By: #### C MP #### [facility] [address] [address] [address] Jessica Gonzalez Potassium [Moles/Vol] 3.6 mmol/L Normal 3.4-5.0 [facility] Comment on above: Performed By: #### C MP #### [facility] [address] [address] [address] Jessica Gonzalez Protein [Mass/Vol] 7.0 g/dL Normal 6.1-8.2 [facility] Comment on above: Performed By: #### C MP #### [facility] [address] [address] [address] Jessica Gonzalez Sodium [Moles/Vol] 139 mmol/L Normal 137-145 [facility] Comment on above: Performed By: #### C MP #### [facility] [address] [address] [address] Jessica Gonzalez Urea nitrogen [Mass/Vol] 14.0 mg/dL Normal 7.0-17.0 [facility] Comment on above: Performed By: #### C MP #### [facility] [address] [address] [address] Jessica Gonzalez Urea nitrogen/Creatinine [Mass ratio] 13.3 mg/mg Normal [facility] Comment on above: Performed By: #### C MP #### [facility] [address] [address] [address] Jessica Gonzalez XR CHEST 1 Von [...] by: TERELL BENITEZ Date: 2021-06-07 02:24 Normal [facility] Vital Signs Date Time Vital Sign Value Performing Clinician Facility 06-05-2024 09:22-0500 Body height 172.7 cm Piter Cleary MD Work Phone: [facility] 06-05-2024 09:22-0500 Body mass index (BMI) [Ratio] 32.08 kg/m2 Piter Cleary MD Work Phone: [facility] 06-05-2024 09:22-0500 Body temperature 97.11 [degF] Piter Cleary MD Work Phone: [facility] 06-05-2024 09:22-0500 Body weight 95.71 kg Piter Cleary MD Work Phone: [facility] 06-05-2024 09:22-0500 Diastolic blood pressure 68 mm[Hg] Piter Cleary MD Work Phone: [facility] 06-05-2024 09:22-0500 Heart rate 91 /min Piter Cleary MD Work Phone: [facility] 06-05-2024 09:22-0500 Respiratory rate 20 /min Piter Cleary MD Work Phone: [facility] 06-05-2024 09:22-0500 SaO2% (BldA) [Mass fraction] 97 % Piter Cleary MD Work Phone: [facility] 06-05-2024 09:22-0500 Systolic blood pressure 124 mm[Hg] Piter Cleary MD Work Phone: [facility] 01-06-2024 10:42-0400 Body height 172.72 cm [facility] 01-06-2024 10:42-0400 Body mass index (BMI) [Ratio] 29.8 kg/m2 [facility] 01-06-2024 10:42-0400 Body temperature 98.2 [degF] [facility] 01-06-2024 10:42-0400 Body weight 89.07 kg [facility] 01-06-2024 10:42-0400 Diastolic blood pressure 87 mm[Hg] [facility] 01-06-2024 10:42-0400 Heart rate 75 /min [facility] 01-06-2024 10:42-0400 Respiratory rate 16 /min [facility] 01-06-2024 10:42-0400 SaO2% (BldA) [Mass fraction] 96 % [facility] 01-06-2024 10:42-0400 Systolic blood pressure 146 mm[Hg] [facility] 06-03-2023 14:45-0500 Body height 172.72 cm Erma Cornelius Other [employer] [facility] [employer] Other 06-03-2023 14:45-0500 Body mass index (BMI) [Ratio] 31.17 kg/m2 Erma Shields Other [employer] Other 06-03-2023 14:45-0500 Body temperature 98.1 [degF] Erma Shields Other [employer] Other 06-03-2023 14:45-0500 Body weight 92.99 kg Erma Shields Other [employer] Other 06-03-2023 14:45-0500 Respiratory rate 18 /min Erma Shields Other [employer] Other 06-03-2023 14:45-3594 SaO2% (BldA) [Mass fraction] 95 % Erma Shields Other [facility] [employer] Other Encounters Encounter Date Encounter Type Care Provider Facility Start: 06-05-2024 End: 06-05-2024 Bamboo flowsyojana Cleary MD Work Phone: [facility] Start: 06-05-2024 End: 06-05-2024 Bamboo flowsyojana Cleary MD Work Phone: [facility] Start: 06-05-2024 End: 06-05-2024 Office outpatient visit 25 minutes Piter Cleary MD Work Phone: [facility] Comment on above: Benign hypertension (CMS/HCC) (Primary Dx); SHAN (generalized anxiety disorder) (CMS/HCC); Chronic obstructive pulmonary disease, unspecified COPD type (CMS/HCC); Lower extremity edema; Gastroesophageal reflux disease without esophagitis Start: 06-05-2024 End: 06-05-2024 ambulatory PITER CLEARY Not Available Start: 02-05-2024 End: 02-05-2024 Bamboo flowsheet Magui S Maspeth TEMPLATE LAYOUT WORKER-S Work Phone: [facility] Start: 02-05-2024 End: 02-05-2024 Bamboo flowsheet Magui S Stella TEMPLATE LAYOUT WORKER-S Work Phone: [facility] Start: 02-05-2024 End: 02-05-2024 ambulatory MAGUI S STELLA Not Available Start: 01-17-2024 End: 01-17-2024 ambulatory MAGUI S STELLA Not Available Start: 01-10-2024 End: 01-10-2024 ambulatory MAGUI S STELLA Not Available Start: 01-06-2024 End: 01-06-2024 ambulatory [facility] Work Phone: Start: 01-06-2024 End: 01-06-2024 Patient encounter procedure [facility] Work Phone: Start: 12-27-2023 End: 12-27-2023 ambulatory MAGUI DOUGLAS Not Available Start: 12-03-2023 End: 12-03-2023 ambulatory PITER MADIHA Not Available Start: 06-12-2023 End: 06-12-2023 ambulatory PITER CLEARY Not Available Start: 06-03-2023 End: 06-03-2023 ambulatory Erma Shields Other [employer] Other Start: 06-03-2023 Office outpatient ne w 30 minutes Erma Shields [facility] Start: 06-07-2021 End: 06-15-2021 Evaluation and management of inpatient DR REAGAN MACDONALD Facility:[facility]1 Start: 05-16-2021 End: 05-17-[address] ASTRID KELLY Facility:[facility]1 Procedures Date Procedure Procedure Detail Performing Clinician Start: 02-05-2024 End: 02-05-2024 Psychotherapy w/patient 60 minutes SHAN (generalized anxiety disorder) (CMS/HCC) Magui Adrian Stella TEMPLATE LAYOUT WORKER-S Work Phone: Comment on above: SHAN (generalized anx iety disorder) (CMS/HCC) Plan of Treatment Date Care Activity Detail Author Start: 10-23-2025 Screening for malign ant neoplasm of colon [facility] Start: 11-03-2024 End: 11-03-2024 Patient encounter procedure 11/03/2024 11:30 AM EDT Office Visit [facility] [address] [place] [id number] Piter Cleary MD [address] [place] [address] [facility] Start: 10-30-2024 Medicare Annual Well ness (AWV) Medicare Annual Wellness (AWV) [facility] Start: 06-09-2024 Screening for malign ant neoplasm of breast Mammogram [facility] Comment on above: Postponed from 10/02 (Patient Refused) Start: 06-05-2024 End: 06-05-2024 Patient encounter procedure [facility] Comment on above: Arrived Start: 02-05-2024 End: 02-05-2024 Social Work 02/05/2024 8:00 AM EDT Social Work [facility] [address] [place] [address] Magui Douglas LISW-S [address] [place] [address] Arrived [facility] Comment on above: Arrived Start: 02-03-2024 Influenza vaccination Influenza Vacc ine (#1) [facility] Start: 10-03-1961 Pneumococcal Vaccine : 65+ Years (1 of 2 - PCV) Pneumococcal Vaccine: 65+ Years (1 of 2 - PCV) [facility] Start: 1955 Screening for malign ant neoplasm of colon [facility] Immunizations Immunization Date Immunization Notes Care Provider Fa cility 05-09-2024 Pneumococcal Conjuga te PCV 20 Piter Cleary MD Work Phone: [facility] 03-03-2024 RSV, recombinant, pr otein subunit RSVpreF, adjuvant reconstitu, 120mcg/0.5mL, PF (Arexvy) Piter Cleary MD Work Phone: [facility] 02-15-2024 influenza, high dose seasonal, preservative-free Piter Cleary MD Work Phone: [facility] 02-15-2024 influenza virus vacc ine, unspecified formulation Piter Cleary MD Work Phone: [facility] 04-11-2023 influenza virus vacc ine, unspecified formulation Magui AVERYS Work Phone: [facility] Payers Date Payer Category Payer Medicare [id number] 2023 Medicare [employer] MEDICARE ADVANTAGE [facility] MEDICARE ADVANTAGE [id number] 2023-Present [address] [place] [address] [id number] 2023 Medicare (Managed Care) SKIP ALVAREZ ADVANTAGE [id number] 2023 Medicare [id number] 1959 Unknown [id number] 1955 Unknown [id number] .2.593 1957 Unknown [id number] [id number] .2.593 1957 Unknown [id number] [id number] .2.9 1957 Unknown [id number] [id number] .2.1259 1957 Unknown [id number] [id number] .2.1258 1957 Unknown [id number] [id number] .2.1259 1957 Unknown [id number] 2.16.840.1.260165.3.579 .2.1258 1957 Unknown [id number] 2.16.840.1.700947.3.579 .2.9 1957 Unknown [id number] [id number] .2.1259 Unknown Broadalbin [id number] Social History Date Type Detail Facility Start: 12-03-2023 End: 06-05-2024 Sex Assigned At [facility] Julian trivedi [employer] Other Start: 01-06-2024 [facility] Start: 1955 Sex Assigned At Female F [facility] Start: 06-12-[address] [facility] Ex-smoker [facility] History of tobacco use Cigarette Smoker [facility] Start: 06-12-2023 End: 06-05-2024 Cigarettes smoked current (pack per day) - Reported 0.5 [facility] Start: 1955 Sex assigned at Not on file [facility] History of Present illness Narrative 06-05-2024 Piter Cleary MD - 06/05/2024 10:05 AM Odette Cleary MD - 06/05/2024 10:05 AM Odette Cleary MD - 06/05/2024 10:04 AM Odette Cleary MD - 06/05/2024 10:04 AM EST Note Date & Type Note Facility 06-05-2024 History of Presen t illness Narrative Associated Problem(s): Lower extremity edema Edema stable and elevate legs PRN. Associated Problem(s): Gastroesophageal reflux disease Symptoms controlled with medication and continue. Associated Problem(s): SHAN (generalized anxiety disorder) ([facility]) Symptoms improved with wellbutrin and continue. Associated Problem(s): COPD (chronic obstructive pulmonary disease) (CMS/HCC) Breathing stable and continue trelegy. 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 Associated Problem(s): Benign hypertension (CMS/HCC) BP controlled and monitor PRN. Images from the original note were not included. Subjective Patient ID: Xuan Hidalgo is a 68 y.o. female who presents for Follow-up (6m). F/u HTN, anxiety, edema, COPD and GERD. Patient doing well today. Checking BP PRN and typically controlled. BP normal today. Taking medication daily and tolerating without side effects. Anxiety stable. Pulmonology added wellbutrin and seems to help. Not as stressed out or overwhelmed. Not as nervous or worry as much. Not as mendenhall or irritable. Edema controlled with medication. Mild swelling at end of day and if on feet a lot. Edema improved in am and with elevation. COPD controlled with inhalers. Mild SOB with exertion. No cough or sputum. Back on trelegy and helps with symptoms. GERD controlled with omeprazole. Denies epigastric pain or burning and not waking up with symptoms. Review of Systems Respiratory: Negative for cough, shortness of breath and wheezing. Cardiovascular: Negative for chest pain and palpitations. Gastrointestinal: Negative for abdominal pain, diarrhea, nausea and vomiting. Genitourinary: Negative for dysuria. Objective Physical Exam Constitutional: General: She is not in acute distress. Appearance: Normal appearance. HENT: Head: Normocephalic. Right Ear: Tympanic membrane normal. Left Ear: Tympanic membrane normal. Eyes: Extraocular Movements: Extraocular movements intact. Pupils: Pupils are equal, round, and reactive to light. Cardiovascular: Rate and Rhythm: Normal rate and regular rhythm. Heart sounds: No murmur heard. No friction rub. No gallop. Pulmonary: Effort: Pulmonary effort is normal. Breath sounds: Normal breath sounds. No wheezing, rhonchi or rales. Abdominal: General: Bowel sounds are normal. There is no distension. Palpations: Abdomen is soft. Tenderness: There is no abdominal tenderness. There is no guarding or rebound. Musculoskeletal: Cervical back: Neck supple. Right lower leg: No edema. Left lower leg: No edema. Neurological: Mental Status: She is alert. Assessment/Plan Problem List Items Addressed This Visit Benign hypertension (CMS/HCC) - Primary BP controlled and monitor PRN. Lower extremity edema Edema stable and elevate legs PRN. Gastroesophageal reflux disease Symptoms controlled with medication and continue. COPD (chronic obstructive pulmonary disease) (CMS/HCC) Breathing stable and continue trelegy. 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 SHAN (generalized anxiety disorder) ([facility]) Symptoms improved with wellbutrin and continue. documented in this encounter [facility] Evaluation note 06-03-2023 Note Date & Type [...] fever/discomfort , cool mist humidifier. May use Miramonte as needed for cough, do not take any other OTCs while using Miramonte. Use Albuterol inhaler as directed. Patient to follow up with PCP in 2-3 days. Immediate eval if SOB, difficulty breathing, chest pain, dizziness, or other concerning symptoms. Patient verbalizes understanding and is agreeable to treatment plan. May, Acute cough (ICD-10 - R05.1) [employer] Other Clinical Note 05-16-2021 Note Date & [...] authenticated by: ASTRID KELLY Date: 2021-05-16 09:51 [facility] Clinical Note 05-16-2021 Note Date [...] authenticated by: ASTRID KELLY Date: 2021-05-16 09:51 [facility] Evaluation note Note Date & Type Note Facility Evaluation note Diagnosis Onset Date Acute conjunctivitis, bilateral acute [facility] Work Phone: Evaluation note Note Date & Type Note Facility Evaluation note Diagnosis SHAN (generalized anxiety disorder) (CMS/HCC) Generalized anxiety disorder documented in this encounter [facility] Evaluation note Note Date & Type Note Facility Evaluation note Diagnosis RSV (respiratory syncytial virus pneumonia)- Primary Pneumonia due to respiratory syncytial virus COPD with acute exacerbation (CMS/HCC) Benign hypertension (CMS/HCC) Essential hypertension, benign Gastroesophageal reflux disease without esophagitis Esophageal reflux Chronic obstructive pulmonary disease, unspecified COPD type (CMS/HCC) Benign hypertension (CMS/HCC)- Primary Essential hypertension, benign Lower extremity edema Edema Chronic obstructive pulmonary disease, unspecified COPD type (CMS/HCC) Gastroesophageal reflux disease without esophagitis Esophageal reflux SHAN (generalized anxiety disorder) ([facility]) Generalized anxiety disorder Dyslipidemia ([facility]) Other and unspecified hyperlipidemia Encounter for long-term current use of medication Pre-diabetes Other abnormal glucose Obesity (BMI 30-39.9) Dermatitis Contact dermatitis and other eczema, due to unspecified cause Benign hypertension ([facility])- Primary Essential hypertension, benign SHAN (generalized anxiety disorder) ([facility]) Generalized anxiety disorder Chronic obstructive pulmonary disease, unspecified COPD type ([facility]) Lower extremity edema Edema Gastroesophageal reflux disease without esophagitis Esophageal reflux documented in this encounter [facility] History general Narrative - Reported Note Date & Type Note Facility History general Narrative - Reported Type Medical History hypertension Medical History asthma Surgical History tonsillectomy Surgical History reconstructive ear surgery Surgical History neuroma in right foot Surgical History tubal ligation Surgical History vein ablasion right leg Hospitalization History cellulitis Hospitalization History [facility] Other Summary Purpose Family History No Family History Records Found Relationship Condition Age at Onset Recorded Date/T anali father Unknown Advance Directives No Advanced Directives Records Found Advance Directive Response Recorded Date/ Time Advance Directives No January 05 024 9:43am Chief Complaint and Reason for Visit Chief Complaint Poss [place]art eye Reason for Visit Acute conjunctivitis , bilateral Additional Source Comments INFORMATION SOURCE (unrecogn ized section and content) DATE CREATED AUTHOR 06/23/2021 [facility] DATE CREATED AUTHOR AUTHOR'S ORGANIZ ATION 06/06/2024 [facility] EPIC REASON FOR VISIT (unrecogniz ed section and content) Reason Comments counseling session Reason Comments Follow-up 6m Care Teams (unrecognized sec tion and content) Team Status: Active Member Role Status Dates Piter Cleary MD Primary Care Provider Active Team Status: Inactive Member Role Status Dates Piter Cleary MD Primary Care Provider Active S tart: January 06, 2024 End: January 06, 2024 Gissel Perez APRN Attending Provider Active S tart: January 06, 2024 End: January 06, 2024 Boarding Room Fixer Relationship Specialty Start Date End Date Piter Cleary MD [address] [place] [address] PCP - General Family Medicine 12/03/23 Boarding Room Fixer Relationship Specialty Start Date End Date Piter Cleary MD [address] [place] [address] PCP - [facility] Medicine 12/03/23 Boarding Room Fixer Relationship Specialty Start Date End Date Piter Cleary MD [address] [place] [address] PCP - [facility] 12/03/23 Boarding Room Fixer Relationship Specialty Start Date End Date Piter Cleary MD [address] [place] [address] PCP - [facility] 12/03/23 Goals (unrecognized section and content) Goals may be documented in a n alternate section FOR RECORDS PERTAINING TO PATIENTS WHO ARE [...] PRIMARY CLINICAL RECORDS. [facility] [employer] [facility]. provides no warranty or guarantee of the accuracy or completeness of information in this document.
--- NOTE | 2024-07-04 08:39 | CT_ITS ---
The [address] [address] Patient Name: MIRANDA GILLILAND MRN: [id number] date: 1955 Sex: F Assigned Patient Location: CT Current Patient Location: CT Accession/Order Number: [id number] Exam Date: 07/04/2024 08:42 Report Date: 07/04/2024 09:09 At the request of: OXANA NEW Procedure: CT lung screening low-dose EXAM: CT lung screening low-dose HISTORY: Nicotine Dependence COMPARISON: CTA chest dated 06/06/[address] chest dated 06/13/2021. TECHNIQUE: Routine low-dose CT lung screen without intravenous contrast. Dose reduction techniques were achieved by using automated exposure control and/or adjustment of mA and/or kV according to patient size and/or use of iterative reconstruction technique. FINDINGS: Cardiovascular: There is a small pericardial effusion along the anterior aspect of the heart measuring up to 6.6 mm in thickness. Severe multivessel coronary calcifications. Mild to moderate aortic valvular calcification. Moderate atheromatous calcification or a second proximal abdominal aorta and the great vessels off the aortic arch and severe atheromatous calcification splenic artery. Lung: Centrilobular and paraseptal emphysema. Mild peribronchial thickening consistent with acute and/or chronic bronchitis. Stable stellate parenchymal scar within the right upper lung zone. Azygos lobe, a variant of normal. Nodules: Stable 2.9 mm noncalcified right upper lobe nodular density (series 4 image 35). Stable 2.8 mm noncalcified right upper lobe nodular density (series 4 image 92). Stable 2.1 mm noncalcified right middle lobe nodule (series 4 image 107). Lymphadenopathy: There are no pathologically enlarged lymph nodes. Other: The trachea, esophagus and imaged portions of the thyroid gland are unremarkable. Upper abdomen: Atherosclerotic disease as described. Osseous: The bony structures are osteopenic. There are bulky bridging paravertebral ossifications at numerous levels along the spine with the morphologic appearance of DISH. There are also mild discogenic degenerative changes at several levels along the spine. CT/CT lung screening low-dose IMPRESSION: Centrilobular and paraseptal emphysema. Mild peribronchial thickening consistent with acute and/or chronic bronchitis. Stable stellate parenchymal scar within the right upper lung zone. Stable noncalcified nodules ranging from 2.1 mm the 2.9 mm. There are no pathologically enlarged lymph nodes. There is a small pericardial effusion along the anterior aspect of the heart measuring up to 6.6 mm. There are severe multivessel coronary calcifications. Atherosclerotic disease as otherwise described. Chronic osseous findings as described. Lung rads score 2. A low-dose CT lung screen examination in 12 months is recommended. Electronically authenticated by: JENNIFER BARBA Date: 07/04/2024 09:09
== END 2024-07-04 08:32 | disposition home or self-care (01) ==
LOC: CT 08:31
PROVIDERS: PCP Family Medicine; Visit Provider Internal Medicine
DX: F17.219 Nicotine dependence, cigarettes, with unspecified nicotine-induced disorders (principal); Z12.2 Encounter for screening for malignant neoplasm of respiratory organs; J43.8 Other emphysema; I31.39 Other pericardial effusion (noninflammatory)
CPT/HCPCS: 71271

== ENCOUNTER 2024-11-07 08:33 | Outpatient (OUT) | payer MEDICARE, SELFPAY ==
--- OUTSIDE RECORDS SUMMARY | 2024-11-07 08:55 | XMS_ITS | CCD ---
Author Organization [facility] Care Team Providers Care Finish Carpenter Name Role Phone TORRES, DR REAGAN Vance Consulting Unavailable NADERERajiv, DR PIETR Berg Admitting Unavailable NADERERajiv, DR PITER Berg Attending Unavailable ALISHA, DR CALI Anthony Consulting Unavailable NADJEFFRY, DR PITER Berg Consulting Unavailable SAMSA, OXANA Consulting Unavailable Policaro, Mulu Consulting Unavailable Benitez, Terell Consulting Unavailable ZIEBER, DR ASTRID Vance Consulting Unavailable MADIHA, DR PITER Berg Admitting Unavailable MADIHA, DR PITER Berg Attending Unavailable MADIHA, DR IPTER Berg Consulting Unavailable Erma Shields Unavailable Piter Cleary MD Primary Care Provider Piter Cleary MD Unavailable PITER CLEARY Attending Unavailable PITER CLEARY Attending Unavailable MAGUI DOUGLAS Attending Unavailable PITER CLEARY Referring Unavailable MAGUI DOUGLAS Attending Unavailable MAGUI DOUGLAS Attending Unavailable MAGUI DOUGLAS Attending Unavailable PITER CLEARY Attending Unavailable Medications Current Medications Medication Drug Class(es) Dates Sig (Normalized) Sig (Original) [id number] 200 actuat albuterol 0.09 mg/actuat metered dose inhaler (12 sources) beta2-Adrenergic Agonist Start: 01-06-2024 Albuterol Sulfate [...] hydrochloride 150 mg extended release oral tablet (6 sources) Aminoketone End: 11-03-2024 take 1 tablet by mouth once daily buPROPion XL (Wellbutrin XL) 150 MG 24 hr tablet Take 150 mg by mouth Daily 11/03/2024 Discontinued cholecalciferol 0.05 mg oral capsule (1 source) Vitamin D Start: 01-06-2024 take 50 ug by mouth once daily Cholecalciferol (Vitamin D3) Active 50 MCG PO Daily January 06, 2024 12:00am dextromethorphan hydrobromide 1.5 mg/ml / pyrilamine maleate 1.5 mg/ml oral solution (1 source) Uncompetitive R-phucvh-X-asparta te Receptor Antagonist, Sigma-1 Agonist Start: 06-03-2023 take 10 mL by mouth every eight hours [place] DM 7.5-7.5 MG/5ML 10 mL Orally every 8 hours for 5 days May, Active Fluticasone Furoate-Vilanterol (6 sources) Corticosteroid, beta2-Adrenergic Agonist Start: 01-06-2024 Fluticasone Furoate-Vilanterol (Breo Ellipta) 200-25 mcg/dose blister [...] day Active hydroCHLOROthiazide 12.5 mg / lisinopril 10 mg oral tablet (12 sources) Thiazide Diuretic, Angiotensin Converting Enzyme Inhibitor Start: 2024 take 1 tablet by mouth once daily lisinopril-hydroC HLOROthiazide 10-12.5 MG tablet Indications: Benign hypertension (CMS/HCC) Take 1 tablet by mouth Daily 90 tablet 3 11/03/2024 Active Start: 11-03-2024 take 1 tablet by bin th once daily lisinopril-hydroCHLOROthiazide 10-12.5 M G tablet Indications: Benign hypertension (CMS/HCC) Take 1 tablet by mouth Daily 90 tablet 3 11/03/2024 Active Start: 01-06-2024 take 1 tablet by bin th once daily Lisinopril-Hydrochlorothiazide Active 1 TAB PO Daily January 06, 2024 12:00am Start: 10-16-2023 End: 08-28-2025 take 1 tablet by mouth once daily lisinopril-hydroCHLOROthiazide 10-12.5 M G tablet Indications: Benign hypertension (CMS/HCC) Take 1 tablet by mouth Daily 30 tablet 11 08/28/2024 11/03/2024 Discontinued ibuprofen 200 mg oral tablet (1 source) [...] omeprazole 20 mg delayed release oral tablet (9 sources) Proton Pump Inhibitor take 1 tablet by mouth before mealtime omeprazole OTC (PriLOSEC OTC) 20 MG EC tablet Take 20 mg by mouth in the morning. Take before meals. Do not crush, chew, or split.. Active polymyxin b 24383 unt/ml / trimethoprim 1 mg/ml ophthalmic solution [...] 12:00am Trelegy Ellipta 200-62.5-25 MCG/ACT aerosol powder (6 sources) Start: 01-29-2024 Trelegy Ellipta 200-62.5-25 MCG/ACT aerosol powder 1 puff 1 (one) time each day at the same time 01/29/2024 Active triamcinolone acetonide 5 mg/ml topical cream (10 sources) Corticosteroid Start: 12-03-2023 triamcinolone (Kenalog) 0.5 % cream Indications: Dermatitis Apply topically 3 (three) times a day 30 g 1 12/03/2023 Active Vitamin B Complex (1 source) Start: 01-06-2024 take 1 tablet by mouth once daily Vitamin B Complex Active 1 TAB PO Daily January 06, 2024 12:00am Vitamins A,C,S-Hgzx-Pnqfhf (Preservision Areds) 4,296 mcg-226 mg-90 mg capsule (1 source) Start: 01-06-2024 take 1 capsule by mouth once Vitamins A,C,J-Qaqr-Qmsvdg (Preservision Areds) 4,296 mcg-226 mg-90 mg capsule [...] Date Documented Da te Episodic/Chronic Anxiety disorders (12 sources) Generalized anxiety disorder; Translations: [Generalized anxiety disorder] Onset: 12-03-2023 12-03-2023 Chronic Asthma (3 sources) Mild intermittent asthma, uncomplicated; Translations: [Mild intermittent asthma] Onset: 06-22-2021 Chronic Chronic obstructive pulmonary disease and bronchiectasis (20 sources) Centrilobular emphysema; Translations: [Chronic obstructive lung disease] Onset: 06-22-2021 Resolved: 12-03-2023 06-12-2023 Chronic Diabetes mellitus without complication (11 sources) Prediabetes; Translations: [Prediabetes] Onset: 06-05-2023 06-05-2023 Episodic Disorders of lipid metabolism (11 sources) Dyslipidemia; Translations: [Hyperlipidemia, unspecified] Onset: 06-05-2023 06-05-2023 Chronic E Codes: Adverse effects of medical drugs (1 source) Adverse effect of glucocorticoids and synthetic analogues, initial encounter; Translations: [ADVRS EFF GLUCOCORT SYN ANALOG INIT] Onset: 06-22-2021 Episodic Esophageal disorders (12 sources) Gastro-esophageal reflux disease without esophagitis; Translations: [Gastroesophageal reflux disease] Onset: 06-22-2021 06-05-2023 Chronic Essential hypertension (13 sources) Benign hypertension; Translations: [Essential (primary) hypertension] Onset: 06-05-2023 06-05-2023 Chronic Inflammation; infection of eye (except that caused by tuberculosis or sexually transmitteddisease) (2 sources) Acute conjunctivitis; Translations: [Unspecified acute conjunctivitis, bilateral] 01-06-2024 Episodic Mycoses (1 source) Candidal stomatitis; Translations: [CANDIDAL STOMATITIS] Onset: 06-22-2021 Episodic Other aftercare (9 sources) Long-term current use of drug therapy; Translations: [Other nursing home (current) drug therapy] Onset: 12-03-2023 12-03-2023 Episodic Other congenital anomalies (1 source) Accessory lobe of lung; Translations: [ACCESSORY LOBE OF LUNG] Onset: 06-22-2021 Chronic Other gastrointestinal disorders (4 sources) Other specified symptoms and signs involving the digestive system and abdomen; Translations: [OTH SPEC SX SIGNS DIGESTV SYS ABD] Onset: 05-16-2021 Episodic Other nutritional; endocrine; and metabolic disorders (7 sources) Body mass index 30+ - obesity; Translations: [Obesity, unspecified] Onset: 12-03-2023 12-03-2023 Chronic Other nutritional; endocrine; and metabolic disorders (4 sources) Obesity caused by energy imbalance; Translations: [Class 1 obesity due to excess calories with serious comorbidity and body mass index (BMI) of 32.0 to 32.9 in adult] Onset: 12-03-2023 11-03-2024 Chronic Other upper respiratory disease (9 sources) Allergic rhinitis due to pollen; Translations: [Allergic rhinitis due to pollen] Onset: 06-12-2023 06-12-2023 Chronic Pleurisy; pneumothorax; pulmonary collapse (1 source) Pyothorax without fistula; Translations: [PYOTHORAX WITHOUT FISTULA] Onset: 06-22-2021 Episodic Respiratory failure; insufficiency; arrest (adult) (1 [...] Classification Problem Date Documented Da te Episodic/Chronic Mood disorders (2 sources) Mood disorders Onset: 11-03-2024 11-03-2024 Other aftercare (2 sources) Patient encounter status; Translations: [Other intermission coordinator (current) drug therapy] Onset: 12-03-2023 12-03-2023 Episodic Pneumonia (except that caused by tuberculosis or sexually transmitted disease) (12 sources) Pneumonia, unspecified organism; Translations: [Pneumonia due to respiratory syncytial virus] Onset: 06-07-2021 Resolved: 12-03-2023 Episodic Residual codes; unclassified (11 sources) Edema of lower extremity; Translations: [Localized edema] Onset: 06-05-2023 06-05-2023 Episodic Unclassified (1 source) Acute cough R05.1 Results Test Name Value Interpretation Reference Range Facility CT LUNG SCREENING LOW DOSEon 07-04-2024 [place] [address] CT Scan Report Signed Patient: MIRANDA GILLILAND MR#: [id number] : 1955 Acct:[id number] Age/Sex: 68 / F ADM Date: 07/04/24 Loc: CT Attending Dr: Oxana New D.O. Ordering Physician: Oxana New D.O. Date of Service: 07/04/24 Procedure(s): CT lung screening low-dose Accession Number(s): [id number] cc: Piter Cleary M.D. [place] [address] Patient Name: MIRANDA GILLILAND MRN: [id number] date: 1955 Sex: F Assigned Patient Location: CT Current Patient Location: CT Accession/Order Number: [id number] Exam Date: 07/04/2024 08:42 Report Date: 07/04/2024 09:09 At the request of: OXANA NEW Procedure: CT lung screening low-dose EXAM: CT lung screening low-dose HISTORY: Nicotine Dependence COMPARISON: CTA chest dated 06/06/[address] chest dated 06/13/2021. TECHNIQUE: Routine low-dose CT lung screen without intravenous contrast. Dose reduction techniques were achieved by using automated exposure control and/or adjustment of mA and/or kV according to patient size and/or use of iterative reconstruction technique. FINDINGS: Cardiovascular: There is a small pericardial effusion along the anterior aspect of the heart measuring up to 6.6 mm in thickness. Severe multivessel coronary calcifications. Mild to moderate aortic valvular calcification. Moderate atheromatous calcification or a second proximal abdominal aorta and the great vessels off the aortic arch and severe atheromatous calcification splenic artery. Lung: Centrilobular and paraseptal emphysema. Mild peribronchial thickening consistent with acute and/or chronic bronchitis. Stable stellate parenchymal scar within the right upper lung zone. Azygos lobe, a variant of normal. Nodules: Stable 2.9 mm noncalcified right upper lobe nodular density (series 4 image 35). Stable 2.8 mm noncalcified right upper lobe nodular density (series 4 image 92). Stable 2.1 mm noncalcified right middle lobe nodule (series 4 image 107). Lymphadenopathy: There are no pathologically enlarged lymph nodes. Other: The trachea, esophagus and imaged portions of the thyroid gland are unremarkable. Upper abdomen: Atherosclerotic disease as described. Osseous: The bony structures are osteopenic. There are bulky bridging paravertebral ossifications at numerous levels along the spine with the morphologic appearance of DISH. There are also mild discogenic degenerative changes at several levels along the spine. CT/CT lung screening low-dose IMPRESSION: Centrilobular and paraseptal emphysema. Mild peribronchial thickening consistent with acute and/or chronic bronchitis. Stable stellate parenchymal scar within the right upper lung zone. Stable noncalcified nodules ranging from 2.1 mm the 2.9 mm. There are no pathologically enlarged lymph nodes. There is a small pericardial effusion along the anterior aspect of the heart measuring up to 6.6 mm. There are severe multivessel coronary calcifications. Atherosclerotic disease as otherwise described. Chronic osseous findings as described. Lung rads score 2. A low-dose CT lung screen examination in 12 months is recommended. Electronically authenticated by: JENNIFER SMALLS Date: 07/04/2024 09:09 Dictated By: Jennifer Smalls M.D. Signed By: 07/04/24910 DD/ 8 TD/TT: Entry Level Manager: [facility] Radiology, Radiologist, MD - 07/04/[address] [address] [address] Scan Report Signed Patient: MIRANDA GILLILAND MR#: [id number] : 1955 Acct:[id number] Age/Sex: 68 / F ADM Date: 07/04/24 Loc: CT Attending Dr: Oxana New D.O. Ordering Physician: Oxana New D.O. Date of Service: 07/04/24 Procedure(s): CT lung screening low-dose Accession Number(s): [id number] cc: Piter Cleary M.D. [address] [address] Patient Name: MIRANDA GILLILAND MRN: [id number] date: 1955 Sex: F Assigned Patient Location: CT Current Patient Location: CT Accession/Order Number: [id number] Exam Date: 07/04/2024 08:42 Report Date: 07/04/2024 09:09 At the request of: OXANA NEW Procedure: CT lung screening low-dose EXAM: CT lung screening low-dose HISTORY: Nicotine Dependence COMPARISON: CTA chest dated 06/06/[address] chest dated 06/13/2021. TECHNIQUE: Routine low-dose CT lung screen without intravenous contrast. Dose reduction techniques were achieved by using automated exposure control and/or adjustment of mA and/or kV according to patient size and/or use of iterative reconstruction technique. FINDINGS: Cardiovascular: There is a small pericardial effusion along the anterior aspect of the heart measuring up to 6.6 mm in thickness. Severe multivessel coronary calcifications. Mild to moderate aortic valvular calcification. Moderate atheromatous calcification or a second proximal abdominal aorta and the great vessels off the aortic arch and severe atheromatous calcification splenic artery. Lung: Centrilobular and paraseptal emphysema. Mild peribronchial thickening consistent with acute and/or chronic bronchitis. Stable stellate parenchymal scar within the right upper lung zone. Azygos lobe, a variant of normal. Nodules: Stable 2.9 mm noncalcified right upper lobe nodular density (series 4 image 35). Stable 2.8 mm noncalcified right upper lobe nodular density (series 4 image 92). Stable 2.1 mm noncalcified right middle lobe nodule (series 4 image 107). Lymphadenopathy: There are no pathologically enlarged lymph nodes. Other: The trachea, esophagus and imaged portions of the thyroid gland are unremarkable. Upper abdomen: Atherosclerotic disease as described. Osseous: The bony structures are osteopenic. There are bulky bridging paravertebral ossifications at numerous levels along the spine with the morphologic appearance of DISH. There are also mild discogenic degenerative changes at several levels along the spine. CT/CT lung screening low-dose IMPRESSION: Centrilobular and paraseptal emphysema. Mild peribronchial thickening consistent with acute and/or chronic bronchitis. Stable stellate parenchymal scar within the right upper lung zone. Stable noncalcified nodules ranging from 2.1 mm the 2.9 mm. There are no pathologically enlarged lymph nodes. There is a small pericardial effusion along the anterior aspect of the heart measuring up to 6.6 mm. There are severe multivessel coronary calcifications. Atherosclerotic disease as otherwise described. Chronic osseous findings as described. Lung rads score 2. A low-dose CT lung screen examination in 12 months is recommended. Electronically authenticated by: JENNIFER SMALLS Date: 07/04/2024 09:09 Dictated By: Jennifer Smalls M.D. Signed By: 07/04/24910 DD/ 8 TD/TT: Entry Level Manager: [facility] Radiology Study observation (narrative) [facility] CT LUNG SCREENING LOW DOSEOr dered By: Radiologist Radiology on 07-04-2024 [facility] [employer] Work Phone: COVID + FLU Quick Testingon 06-03-2023 SARS-CoV-2 (COVID-19) RNA MASON+probe Ql (Unsp spec) Negative [facility] [employer] Other COVID + FLU Quick Testing Negative [employer] Other [id number] PHENOTYP INGon 06-14-2021 Qnokm-3-[id number], Serum 266 mg/dL Critically high 101-187 [facility] Comment on above: Result Comment: Perf ormed at: CB Performed By: #### C [facility] #### [facility] [address] [place] [address] [address] Jessica Gonzalez Phenotype (PI) MM Normal [facility] Comment on above: Result Comment: Phen otype [...] BN Performed By: #### C VDTB #### [facility] [address] [place] [address] Dr. Jessica Gonzalez CBC W MANUAL DIFFon 06-14-19 22 ATYPICAL LYMPH # Normal [facility] Comment on above: Performed By: #### C ANDRES #### [facility] [address] [place] [address] Dr. Jessica Gonzalez ATYPICAL LYMPH % Normal [facility] Comment on above: Performed By: #### C ANDRES #### [facility] [address] [place] [address] Dr. Jessica Gonzalez BAND # 1.2 103/ul Critically high 0.0-0.3 [facility] Comment on above: Performed By: #### C ANDRES #### [facility] [address] [place] [address] Dr. Jessica Gonzalez BAND % 6 % Critically high 0-5 [facility] Comment on above: Performed By: #### C ANDRES #### [facility] [address] [place] [address] Dr. Jessica Gonzalez BASOM # 0.00 103/ul Normal 0.00-0.10 [facility] Comment on above: Performed By: #### C ANDRES #### [facility] [address] [place] [address] Dr. Jessica Gonzalez BASOM % 0.0 % Critically low 0.2-2.0 [facility] Comment on above: Performed By: #### C ANDRES #### [facility] [address] [place] [address] Dr. Jessica Gonzalez BLAST # Normal [facility] Comment on above: Performed By: #### C ANDRES #### [facility] [address] [place] [address] Dr. Jessica Gonzalez BLAST % Normal [facility] Comment on above: Performed By: #### C ANDRES #### [facility] [address] [place] [address] Dr. Jessica Gonzalez CORRECTED WBC Normal 4.0-11.0 [facility] Comment on above: Performed By: #### C ANDRES #### [facility] [address] [place] [address] Dr. Jessica Gonzalez EOS # 0.00 103/ul Normal 0.00-0.70 [facility] Comment on above: Performed By: #### C ANDRES #### [facility] [address] [place] [address] Dr. Jessica Gonzalez EOS% 0.0 % Critically low 0.9-7.0 [facility] Comment on above: Performed By: #### C ANDRES #### [facility] [address] [place] [address] Dr. Jessica Gonzalez HCT 37.7 % Normal 36.0-48.0 [facility] Comment on above: Performed By: #### C ANDRES #### [facility] [address] [place] [address] Dr. Jessica Gonzalez HGB 12.6 g/dl Normal 12.0-16.0 [facility] Comment on above: Performed By: #### C ANDRES #### [facility] [address] [place] [address] Dr. Jessica Gonzalez LYMPHM # 1.76 103/ul Normal 1.20-3.[address] [facility] Comment on above: Performed By: #### C ANDRES #### [facility] [address] [place] [address] Dr. Jessica Gonzalez LYMPHM% 9.0 % Critically low 20.5-60.0 [facility] Comment on above: Performed By: #### C ANDRES #### [facility] [address] [place] [address] Dr. Jessica Gonzalez MCH 33.4 pg Normal 26.7-34.0 [facility] Comment on above: Performed By: #### C BCMAN #### [facility] [address] [place] [address] Dr. Jessica Gonzalez MCHC 33.4 g/dl Normal 29.9-35.2 [facility] Comment on above: Performed By: #### C BCMAN #### [facility] [address] [place] [address] Dr. Jessica Gonzalez MCV 100.0 fL Critically high 81.0-99.0 [facility] Comment on above: Performed By: #### C BCMAN #### [facility] [address] [place] [address] Dr. Jessica Gonzalez METAMYELOCYTE # Normal [facility] Comment on above: Performed By: #### C ANDRES #### [facility] [address] [place] [address] Dr. Jessica Gonzalez METAMYELOCYTE % Normal [facility] Comment on above: Performed By: #### C BCRODY #### [facility] [address] [place] [address] Dr. Jessica Gonzalez MONOM# 0.98 103/ul Critically high 0.30-0.80 [facility] Comment on above: Performed By: #### C BCMAN #### [facility] [address] [place] [address] Dr. Jessica Gonzalez MONOM% 5.0 % Normal 1.7-12.0 [facility] Comment on above: Performed By: #### C BCMAN #### [facility] [address] [place] [address] Dr. Jessica Gonzalez MPV 9.3 fL Critically low 9.5-13.5 [facility] Comment on above: Performed By: #### C BCMAN #### [facility] [address] [place] [address] Dr. Jessica Gonzalez MYELOCYTE # Normal [facility] Comment on above: Performed By: #### C ANDRES #### [facility] [address] [place] [address] Dr. Jessica Gonzalez MYELOCYTE % Normal [facility] Comment on above: Performed By: #### C ANDRES #### [facility] [address] [address] [address] Jessica Gonzalez NRBC Normal [facility] Comment on above: Performed By: #### C ANDRES #### [facility] [address] [place] [address] [address] Jessica Gonzalez PLT 271 103/ul Normal 150-[address] [facility] Comment on above: Performed By: #### C ANDRES #### [facility] [address] [address] [address] Jessica Gonzalez RBC 3.77 106/ul Critically low 4.20-5.40 [facility] Comment on above: Performed By: #### C ANDRES #### [facility] [address] [place] [address] Dr. Jessica Gonzalez RDW 13.6 % Normal 11.0-15.0 [facility] Comment on above: Performed By: #### C ANDRES #### [facility] [address] [place] [address] Dr. Jessica Gonzalez SEG # 15.68 103/ul Critically high 1.40-6.50 [facility] Comment on above: Performed By: #### C ANDRES #### [facility] [address] [place] [address] Dr. Jessica Gonzalez SEG % 80.0 % Critically high 43.0-75.0 [facility] Comment on above: Performed By: #### C ANDRES #### [facility] [address] [place] [address] Dr. Jessica Gonzalez WBC 19.6 103/ul Critically high 4.0-11.0 [facility] Comment on above: Performed By: #### C ANDRES #### [facility] [address] [place] [address] Dr. Jessica Gonzalez PROF CHEM 8 (BAS METB)on Anion gap [Moles/Vol] 12.0 mmol/L Normal [facility] Comment on above: Performed By: #### B MP #### [facility] [address] [place] [address] [address] Jessica Gonzalez Calcium [Mass/Vol] 8.7 mg/dL Normal 8.4-10.2 [facility] Comment on above: Performed By: #### B MP #### [facility] [address] [place] [address] [address] Jessica Gonzalez Chloride [Moles/Vol] 103 mmol/L Normal 98-107 [facility] Comment on above: Performed By: #### B MP #### [facility] [address] [address] [address] Jessica Gonzalez CO2 [Moles/Vol] 27.7 mmol/L Normal 22.0-30.0 [facility] Comment on above: Performed By: #### B MP #### [facility] [address] [place] [address] Dr. Jessica Gonzalez Creatinine [Mass/Vol] 0.85 mg/dL Normal 0.52-1.04 [facility] Comment on above: Performed By: #### B MP #### [facility] [address] [address] [address] Jessica Gonzalez EGFR-AF BURUNDIAN >60 Normal >=60 [facility] Comment on above: Performed By: #### B MP #### [facility] [address] [place] [address] Dr. Jessica Gonzalez EGFR-NON AF BURUNDIAN >60 Normal >=60 [facility] Comment on above: Performed By: #### B MP #### [facility] [address] [address] [address] Jessica Gonzalez Glucose [Mass/Vol] 156 mg/dL Critically high 74-106 [facility] Comment on above: Performed By: #### B MP #### [facility] [address] [address] [address] Jessica Gonzalez Potassium [Moles/Vol] 3.7 mmol/L Normal 3.4-5.0 [facility] Comment on above: Performed By: #### B MP #### [facility] [address] [address] [address] Jessica Gonzalez Sodium [Moles/Vol] 139 mmol/L Normal 137-145 [facility] Comment on above: Performed By: #### B MP #### [facility] [address] [place] [address] Dr. Jessica Gonzaelz Urea nitrogen [Mass/Vol] 18.0 mg/dL Critically high 7.0-17.0 [facility] Comment on above: Performed By: #### B MP #### [facility] [address] [place] [address] Dr. Jessica Gonzalez Urea nitrogen/Creatinine [Mass ratio] 21.2 mg/mg Normal [facility] Comment on above: Performed By: #### B MP #### [facility] [address] [place] [address] Dr. Jessica Gonzalez CBC W MANUAL DIFFon 06-13-19 22 ATYPICAL LYMPH # Normal [facility] Comment on above: Performed By: #### C VDTBH #### [facility] [address] [place] [address] Dr. Jessica Gonzalez ATYPICAL LYMPH % Normal [facility] Comment on above: Performed By: #### C VDTBH #### [facility] [address] [place] [address] Dr. Jessica Gonzalez BAND # 2.0 103/ul Critically high 0.0-0.3 [facility] Comment on above: Performed By: #### C VDTBH #### [facility] [address] [place] [address] Dr. Jessica Gonzalez BAND % 11 % Critically high 0-5 [facility] Comment on above: Performed By: #### C VDTBH #### [facility] [address] [place] [address] Dr. Jessica Gonzalez BASOM # 0.00 103/ul Normal 0.00-0.[address] [facility] Comment on above: Performed By: #### C VDTBH #### [facility] [address] [place] [address] Dr. Jessica Gonzalez BASOM % 0.0 % Critically low 0.2-2.0 [facility] Comment on above: Performed By: #### C VDTBH #### [facility] [address] [place] [address] Dr. Jessica Gonzalez BLAST # Normal [facility] Comment on above: Performed By: #### C VDTBH #### [facility] [address] [place] [address] Dr. Jessica Gonzalez BLAST % Normal [facility] Comment on above: Performed By: #### C VDTBH #### [facility] [address] [place] [address] Dr. Jessica Gonzalez CORRECTED WBC Normal 4.0-11.0 [facility] Comment on above: Performed By: #### C VDTBH #### [facility] [address] [place] [address] Dr. Jessica Gonzalez EOS # 0.18 103/ul Normal 0.00-0.70 [facility] Comment on above: Performed By: #### C VDTBH #### [facility] [address] [place] [address] Dr. Jessica Gonzalez EOS% 1.0 % Normal 0.9-7.0 [facility] Comment on above: Performed By: #### C VDTBH #### [facility] [address] [place] [address] Dr. Jessica Gonzalez HCT 37.5 % Normal 36.0-48.0 [facility] Comment on above: Performed By: #### C VDTBH #### [facility] [address] [place] [address] Dr. Jessica Gonzalez HGB 12.5 g/dl Normal 12.0-16.0 [facility] Comment on above: Performed By: #### C VDTBH #### [facility] [address] [place] [address] Dr. Jessica Gonzalez LYMPHM # 2.00 103/ul Normal 1.20-3.80 [facility] Comment on above: Performed By: #### C VDTBH #### [facility] [address] [place] [address] Dr. Jessica Gonzalez LYMPHM% 11.0 % Critically low 20.5-60.0 [facility] Comment on above: Performed By: #### C VDTBH #### [facility] [address] [place] [address] Dr. Jessica Gonzalez MCH 33.2 pg Normal 26.7-34.0 [facility] Comment on above: Performed By: #### C VDTBH #### [facility] [address] [place] [address] Dr. Jessica Gonzalez MCHC 33.3 g/dl Normal 29.9-35.2 [facility] Comment on above: Performed By: #### C VDTBH #### [facility] [address] [place] [address] Dr. Jessica Gonzalez MCV 99.7 fL Critically high 81.0-99.0 [facility] Comment on above: Performed By: #### C VDTBH #### [facility] [address] [place] [address] Dr. Jessica Gonzalez METAMYELOCYTE # Normal [facility] Comment on above: Performed By: #### C VDTBH #### [facility] [address] [place] [address] Dr. Jessica Gonzalez METAMYELOCYTE % Normal [facility] Comment on above: Performed By: #### C VDTBH #### [facility] [address] [place] [address] Dr. Jessica Gonzalez MONOM# 1.46 103/ul Critically high 0.30-0.80 [facility] Comment on above: Performed By: #### C VDTBH #### [facility] [address] [place] [address] Dr. Jessica Gonzalez MONOM% 8.0 % Normal 1.7-12.0 [facility] Comment on above: Performed By: #### C VDTBH #### [facility] [address] [place] [address] Dr. Jessica Gonzalez MPV 10.2 fL Normal 9.5-13.5 [facility] Comment on above: Performed By: #### C VDTBH #### [facility] [address] [address] [address] Jessica Gonzalez MYELOCYTE # Normal [facility] Comment on above: Performed By: #### C VDTBH #### [facility] [address] [address] [address] Jessica Gonzalez MYELOCYTE % Normal [facility] Comment on above: Performed By: #### C VDTBH #### [facility] [address] [address] [address] Jessica Gonzalez NRBC Normal [facility] Comment on above: Performed By: #### C VDTBH #### [facility] [address] [address] [address] Jessica Gonzalez PLT 223 103/ul Normal 150-450 [facility] Comment on above: Performed By: #### C VDTBH #### [facility] [address] [place] [address] Dr. Jessica Gonzalez RBC 3.76 106/ul Critically low 4.20-5.40 [facility] Comment on above: Performed By: #### C VDTBH #### [facility] [address] [place] [address] Dr. Jessica Gonzalez RDW 13.8 % Normal 11.0-15.0 [facility] Comment on above: Performed By: #### C VDTBH #### [facility] [address] [place] [address] Dr. Jessica Gonzalez SEG # 12.56 103/ul Critically high 1.40-6.50 [facility] Comment on above: Performed By: #### C VDTBH #### [facility] [address] [place] [address] Dr. Jessica Gonzalez SEG % 69.0 % Normal 43.0-75.0 [facility] Comment on above: Performed By: #### C VDTBH #### [facility] [address] [place] [address] Dr. Jessica Gonzalez WBC 18.2 103/ul Critically high 4.0-11.0 [facility] Comment on above: Performed By: #### C VDTBH #### [facility] [address] [address] [address] CHEST WO CONon [...] CALI BRITO Date: 2021-06-13 09:[address] [facility] PROF CHEM 8 (BAS METB)on Anion gap [Moles/Vol] 11.7 mmol/L Normal [facility] Comment on above: Performed By: #### C VDTBH #### [facility] [address] [place] [address] Dr. Jessica Gonzalez Calcium [Mass/Vol] 8.9 mg/dL Normal 8.4-10.2 [facility] Comment on above: Performed By: #### C VDTBH #### [facility] [address] [address] [address] Jessica Gonzalez Chloride [Moles/Vol] 106 mmol/L Normal 98-107 [facility] Comment on above: Performed By: #### C VDTBH #### [facility] [address] [address] [address] Jessica Gonzalez CO2 [Moles/Vol] 26.1 mmol/L Normal 22.0-30.0 [facility] Comment on above: Performed By: #### C VDTBH #### [facility] [address] [address] [address] Jessica Gonzalez Creatinine [Mass/Vol] 0.81 mg/dL Normal 0.52-1.04 [facility] Comment on above: Performed By: #### C VDTBH #### [facility] [address] [address] [address] Jessica Gonzalez EGFR-AF BURUNDIAN >60 Normal >=60 [facility] Comment on above: Performed By: #### C VDTBH #### [facility] [address] [place] [address] Dr. Jessica Gonzalez EGFR-NON AF BURUNDIAN >60 Normal >=60 [facility] Comment on above: Performed By: #### C VDTBH #### [facility] [address] [address] [address] Jessica Gonzalez Glucose [Mass/Vol] 167 mg/dL Critically high 74-106 [facility] Comment on above: Performed By: #### C VDTBH #### [facility] [address] [address] [address] Jessica Gonzalez Potassium [Moles/Vol] 3.8 mmol/L Normal 3.4-5.0 [facility] Comment on above: Performed By: #### C VDTBH #### [facility] [address] [address] [address] Jessica Gonzalez Sodium [Moles/Vol] 140 mmol/L Normal 137-145 [facility] Comment on above: Performed By: #### C VDTBH #### [facility] [address] [address] [address] Jessica Gonzalez Urea nitrogen [Mass/Vol] 19.0 mg/dL Critically high 7.0-17.0 [facility] Comment on above: Performed By: #### C VDTBH #### [facility] [address] [place] [address] Dr. Jessica Gonzalez Urea nitrogen/Creatinine [Mass ratio] 23.5 mg/mg Normal [facility] Comment on above: Performed By: #### C VDTBH #### [facility] [address] [place] [address] Dr. Jessica Gonzalez XR CHEST 2 Von [...] CALI BRITO Date: 2021-06-13 07:[address] [facility] CBC W MANUAL DIFFon 06-12-19 22 ATYPICAL LYMPH # Normal [facility] Comment on above: Performed By: #### C VDTBH #### [facility] [address] [place] [address] Dr. Jessica Gonzalez ATYPICAL LYMPH % Normal [facility] Comment on above: Performed By: #### C VDTBH #### [facility] [address] [place] [address] Dr. Jessica Gonzalez BAND # 1.3 103/ul Critically high 0.0-0.3 [facility] Comment on above: Performed By: #### C VDTBH #### [facility] [address] [place] [address] Dr. Jessica Gonzalez BAND % 8 % Critically high 0-5 [facility] Comment on above: Performed By: #### C VDTBH #### [facility] [address] [place] [address] Dr. Jessica Gonzalez BASOM # 0.00 103/ul Normal 0.00-0.[address] [facility] Comment on above: Performed By: #### C VDTBH #### [facility] [address] [place] [address] Dr. Jessica Gonzalez BASOM % 0.0 % Critically low 0.2-2.0 [facility] Comment on above: Performed By: #### C VDTBH #### [facility] [address] [place] [address] Dr. Jessica Gonzalez BLAST # Normal [facility] Comment on above: Performed By: #### C VDTBH #### [facility] [address] [address] [address] Jessica Gonzalez BLAST % Normal [facility] Comment on above: Performed By: #### C VDTBH #### [facility] [address] [address] [address] Jessica Gonzalez CORRECTED WBC Normal 4.0-11.0 [facility] Comment on above: Performed By: #### C VDTBH #### [facility] [address] [place] [address] Dr. Jessica Gonzalez EOS # 0.00 103/ul Normal 0.00-0.70 [facility] Comment on above: Performed By: #### C VDTBH #### [facility] [address] [place] [address] Dr. Jessica Gonzalez EOS% 0.0 % Critically low 0.9-7.0 [facility] Comment on above: Performed By: #### C VDTBH #### [facility] [address] [place] [address] Dr. Jessica Gonzalez HCT 35.4 % Critically low 36.0-48.0 [facility] Comment on above: Performed By: #### C VDTBH #### [facility] [address] [place] [address] Dr. Jessica Gonzalez HGB 11.9 g/dl Critically low 12.0-16.0 [facility] Comment on above: Performed By: #### C VDTBH #### [facility] [address] [place] [address] Dr. Jessica Gonzalez LYMPHM # 0.63 103/ul Critically low 1.20-3.80 [facility] Comment on above: Performed By: #### C VDTBH #### [facility] [address] [place] [address] Dr. Jessica Gonzalez LYMPHM% 4.0 % Critically low 20.5-60.0 [facility] Comment on above: Performed By: #### C VDTBH #### [facility] [address] [place] [address] Dr. Jessica Gonzalez MCH 33.3 pg Normal 26.7-34.0 [facility] Comment on above: Performed By: #### C VDTBH #### [facility] [address] [place] [address] Dr. Jessica Gonzalez MCHC 33.6 g/dl Normal 29.9-35.2 [facility] Comment on above: Performed By: #### C VDTBH #### [facility] [address] [place] [address] Dr. Jessica Gonzalez MCV 99.2 fL Critically high 81.0-99.0 [facility] Comment on above: Performed By: #### C VDTBH #### [facility] [address] [place] [address] Dr. Jessica Gonzalez METAMYELOCYTE # Normal [facility] Comment on above: Performed By: #### C VDTBH #### [facility] [address] [place] [address] Dr. Jessica Gonzalez METAMYELOCYTE % Normal [facility] Comment on above: Performed By: #### C VDTBH #### [facility] [address] [place] [address] Dr. Jessica Gonzalez MONOM# 0.79 103/ul Normal 0.30-0.80 [facility] Comment on above: Performed By: #### C VDTBH #### [facility] [address] [place] [address] Dr. Jessica Gonzalez MONOM% 5.0 % Normal 1.7-12.0 [facility] Comment on above: Performed By: #### C VDTBH #### [facility] [address] [place] [address] Dr. Jessica Gonzalez MPV 9.4 fL Critically low 9.5-13.5 [facility] Comment on above: Performed By: #### C VDTBH #### [facility] [address] [place] [address] Dr. Jessica Gonzalez MYELOCYTE # Normal [facility] Comment on above: Performed By: #### C VDTBH #### [facility] [address] [address] [address] Jessica Gonzalez MYELOCYTE % Normal [facility] Comment on above: Performed By: #### C VDTBH #### [facility] [address] [place] [address] Dr. Jessica Gonzalez NRBC Normal [facility] Comment on above: Performed By: #### C VDTBH #### [facility] [address] [place] [address] Dr. Jessica Gonzalez PLT 241 103/ul Normal 150-450 [facility] Comment on above: Performed By: #### C VDTBH #### [facility] [address] [place] [address] Dr. Jessica Gonzalez RBC 3.57 106/ul Critically low 4.20-5.40 [facility] Comment on above: Performed By: #### C VDTBH #### [facility] [address] [place] [address] Dr. Jessica Gonzalez RDW 13.5 % Normal 11.0-15.0 [facility] Comment on above: Performed By: #### C VDTBH #### [facility] [address] [place] [address] Dr. Jessica Gonzalez SEG # 13.11 103/ul Critically high 1.40-6.50 [facility] Comment on above: Performed By: #### C VDTBH #### [facility] [address] [place] [address] Dr. Jessica Gonzalez SEG % 83.0 % Critically high 43.0-75.0 [facility] Comment on above: Performed By: #### C VDTBH #### [facility] [address] [place] [address] Dr. Jessica Gonzalez WBC 15.8 103/ul Critically high 4.0-11.0 [facility] Comment on above: Performed By: #### C VDTB #### [facility] [address] [place] [address] Dr. Jessica Gonzalez PROF CHEM 8 (BAS METB)on Anion gap [Moles/Vol] 12.6 mmol/L Normal [facility] Comment on above: Performed By: #### B MP #### [facility] [address] [place] [address] Dr. Jessica Gonzalez Calcium [Mass/Vol] 8.9 mg/dL Normal 8.4-10.2 [facility] Comment on above: Performed By: #### B MP #### [facility] [address] [place] [address] Dr. Jessica Gonzalez Chloride [Moles/Vol] 106 mmol/L Normal 98-107 [facility] Comment on above: Performed By: #### B MP #### [facility] [address] [place] [address] Dr. Jessica Gonzalez CO2 [Moles/Vol] 26.0 mmol/L Normal 22.0-30.0 [facility] Comment on above: Performed By: #### B MP #### [facility] [address] [place] [address] Dr. Jessica Gonzalez Creatinine [Mass/Vol] 0.72 mg/dL Normal 0.52-1.04 [facility] Comment on above: Performed By: #### B MP #### [facility] [address] [place] [address] Dr. Jessica Gonzalez EGFR-AF BURUNDIAN >60 Normal >=60 [facility] Comment on above: Performed By: #### B MP #### [facility] [address] [place] [address] Dr. Jessica Gonzalez EGFR-NON AF BURUNDIAN >60 Normal >=60 [facility] Comment on above: Performed By: #### B MP #### [facility] [address] [place] [address] Dr. Jessica Gonzalez Glucose [Mass/Vol] 132 mg/dL Critically high 74-106 [facility] Comment on above: Performed By: #### B MP #### [facility] [address] [place] [address] Dr. Jessica Gonzalez Potassium [Moles/Vol] 3.6 mmol/L Normal 3.4-5.0 [facility] Comment on above: Performed By: #### B MP #### [facility] [address] [place] [address] Dr. Jessica Gonzalez Sodium [Moles/Vol] 141 mmol/L Normal 137-145 [facility] Comment on above: Performed By: #### B MP #### [facility] [address] [place] [address] Dr. Jessica Gonzalez Urea nitrogen [Mass/Vol] 21.0 mg/dL Critically high 7.0-17.0 [facility] Comment on above: Performed By: #### B MP #### [facility] [address] [place] [address] Dr. Jessica Gonzalez Urea nitrogen/Creatinine [Mass ratio] 29.2 mg/mg Normal [facility] Comment on above: Performed By: #### B MP #### [facility] [address] [place] [address] Dr. Jessica Gonzalez CBC AUTO DIFFon 06-11-2021 BASO # 0.0 103/ul Normal 0.0-0.1 [facility] Comment on above: Performed By: #### C VDTBH #### [facility] [address] [place] [address] Dr. Jessica Gonzalez Basophils/100 WBC (Bld) 0.1 % Critically low 0.2-2.0 [facility] Comment on above: Performed By: #### C VDTBH #### [facility] [address] [place] [address] Dr. Jessica Gonzalez EO # 0.0 103/ul Normal 0.0-0.7 [facility] Comment on above: Performed By: #### C VDTBH #### [facility] [address] [place] [address] Dr. Jessica Gonzalez Eosinophils/100 WBC (Bld) 0.1 % Critically low 0.9-7.0 [facility] Comment on above: Performed By: #### C VDTBH #### [facility] [address] [place] [address] Dr. Jessica Gonzalez Erythrocyte distribution width (RBC) [Ratio] 13.2 % Normal 11.0-15.0 [facility] Comment on above: Performed By: #### C VDTBH #### [facility] [address] [place] [address] Dr. Jessica Gonzalez Hematocrit (Bld) [Volume fraction] 36.3 % Normal 36.0-48.0 [facility] Comment on above: Performed By: #### C VDTBH #### [facility] [address] [place] [address] Dr. Jessica Gonzalez Hemoglobin (Bld) [Mass/Vol] 12.1 g/dL Normal 12.0-16.0 [facility] Comment on above: Performed By: #### C VDTBH #### [facility] [address] [place] [address] Dr. Jessica Gonzalez IG # 1.99 10e3/ul Critically high 0.00-0.03 [facility] Comment on above: Performed By: #### C VDTBH #### [facility] [address] [place] [address] Dr. Jessica Gonzalez IG % 11.1 % Critically high 0.0-0.5 [facility] Comment on above: Performed By: #### C VDTBH #### [facility] [address] [place] [address] Dr. Jessica Gonzalez LYMPH # 1.1 103/ul Critically low 1.2-3.8 [facility] Comment on above: Performed By: #### C VDTBH #### [facility] [address] [place] [address] Dr. Jessica Gonzalez Lymphocytes/100 WBC (Bld) 6.1 % Critically low 20.5-60.0 [facility] Comment on above: Performed By: #### C VDTBH #### [facility] [address] [place] [address] Dr. Jessica Gonzalez MANUAL DIFF REQ NO Normal [facility] Comment on above: Performed By: #### C VDTBH #### [facility] [address] [place] [address] Dr. Jessica Gonzalez MCH (RBC) [Entitic mass] 33.0 pg Normal 26.7-34.[address] [facility] Comment on above: Performed By: #### C VDTBH #### [facility] [address] [place] [address] Dr. Jessica Gonzalez MCHC (RBC) [Mass/Vol] 33.3 g/dL Normal 29.9-35.[address] [facility] Comment on above: Performed By: #### C VDTBH #### [facility] [address] [place] [address] Dr. Jessica Gonzalez MCV (RBC) [Entitic vol] 98.9 fL Normal 81.0-99.[address] [facility] Comment on above: Performed By: #### C VDTBH #### [facility] [address] [place] [address] Dr. Jessica Gonzalez MONO # 0.5 103/ul Normal 0.3-0.[address] [facility] Comment on above: Performed By: #### C VDTBH #### [facility] [address] [place] [address] Dr. Jessica Gonzalez Monocytes/100 WBC (Bld) 2.8 % Normal 1.7-12.[address] [facility] Comment on above: Performed By: #### C VDTBH #### [facility] [address] [place] [address] Dr. Jessica Gonzalez NEUT # 14.3 103/ul Critically high 1.4-6.5 [facility] Comment on above: Performed By: #### C VDTBH #### [facility] [address] [place] [address] Dr. Jessica Gonzalez Neutrophils/100 WBC (Bld) 79.8 % Critically high 43.0-75.[address] [facility] Comment on above: Performed By: #### C VDTBH #### [facility] [address] [address] [address] Jessica Gonzalez Platelet mean volume (Bld) [Entitic vol] 9.6 fL Normal 9.5-13.5 [facility] Comment on above: Performed By: #### C VDTBH #### [facility] [address] [address] [address] Jessica Gonzalez PLT 237 103/ul Normal 150-[address] [facility] Comment on above: Performed By: #### C VDTBH #### [facility] [address] [address] [address] Jessica Gonzalez RBC 3.67 106/ul Critically low 4.20-5.40 [facility] Comment on above: Performed By: #### C VDTBH #### [facility] [address] [place] [address] Dr. Jessica Gonzalez WBC 18.0 103/ul Critically high 4.0-11.0 [facility] Comment on above: Performed By: #### C VDTBH #### [facility] [address] [place] [address] Dr. Jessica Gonzalez CULTURE SPUTUMon 06-11-2021 CULTURE [...] S F Oxacillin <=0.25 S F Normal [facility] Comment on above: Performed By: #### B MP #### [facility] [address] [address] [address] Jessica Gonzalez PROF CHEM 8 (BAS METB)on Anion gap [Moles/Vol] 12.5 mmol/L Normal [facility] Comment on above: Performed By: #### B MP #### [facility] [address] [address] [address] Jessica Gonzalez Calcium [Mass/Vol] 9.2 mg/dL Normal 8.4-10.2 [facility] Comment on above: Performed By: #### B MP #### [facility] [address] [address] [address] Jessica Gonzalez Chloride [Moles/Vol] 107 mmol/L Normal 98-107 [facility] Comment on above: Performed By: #### B MP #### [facility] [address] [address] [address] Jessica Gonzalez CO2 [Moles/Vol] 25.3 mmol/L Normal 22.0-30.0 [facility] Comment on above: Performed By: #### B MP #### [facility] [address] [address] [address] Jessica Gonzalez Creatinine [Mass/Vol] 0.77 mg/dL Normal 0.52-1.04 [facility] Comment on above: Performed By: #### B MP #### [facility] [address] [address] [address] Jessica Gonzalez EGFR-AF BURUNDIAN >60 Normal >=60 [facility] Comment on above: Performed By: #### B MP #### [facility] [address] [address] [address] Jessica Gonzalez EGFR-NON AF [place]URUNDIAN >60 Normal >=60 [facility] Comment on above: Performed By: #### B MP #### [facility] Laboratory [address] [address] [address] Jessica Gonzalez Glucose [Mass/Vol] 163 mg/dL Critically high 74-106 [facility] Comment on above: Performed By: #### B MP #### [facility] [address] [place] [address] Dr. Jessica Gonzalez Potassium [Moles/Vol] 3.8 mmol/L Normal 3.4-5.0 [facility] Comment on above: Performed By: #### B MP #### [facility] [address] [address] [address] Jessica Gonzalez Sodium [Moles/Vol] 141 mmol/L Normal 137-145 [facility] Comment on above: Performed By: #### B MP #### [facility] [address] [address] [address] Jessica Gonzalez Urea nitrogen [Mass/Vol] 19.0 mg/dL Critically high 7.0-17.0 [facility] Comment on above: Performed By: #### B MP #### [facility] [address] [address] [address] Jessica Gonzalez Urea nitrogen/Creatinine [Mass ratio] 24.7 mg/mg Normal [facility] Comment on above: Performed By: #### B MP #### [facility] [address] [address] [address] Jessica Gonzalez VANCOMYCIN TROUGHon 06-11-19 22 VANCOMYCIN TROUGH 9.1 ug/ml Normal 5.0-20.0 [facility] Comment on above: Performed By: #### V ANCT #### [facility] [address] [address] [address] Jessica Gonzalez CBC W MANUAL DIFFon 06-10-19 22 ATYPICAL LYMPH # Normal [facility] Comment on above: Performed By: #### B MP #### [facility] [address] [address] [address] Jessica Gonzalez ATYPICAL LYMPH % Normal [facility] Comment on above: Performed By: #### B MP #### [facility] [address] [address] [address] Jessica Gonzalez BAND # 1.2 103/ul Critically high 0.0-0.3 [facility] Comment on above: Performed By: #### B MP #### [facility] [address] [address] [address] Jessica Gonzalez BAND % 6 % Critically high 0-5 [facility] Comment on above: Performed By: #### B MP #### [facility] [address] [address] [address] Jessica Gonzalez BASOM # 0.00 103/ul Normal 0.00-0.[address] [facility] Comment on above: Performed By: #### B MP #### [facility] [address] [place] [address] Dr. Jessica Gonzalez BASOM % 0.0 % Critically low 0.2-2.0 [facility] Comment on above: Performed By: #### B MP #### [facility] [address] [address] [address] Jessica Gonzalez BLAST # Normal [facility] Comment on above: Performed By: #### B MP #### [facility] [address] [place] [address] Dr. Jessica Gonzalez BLAST % Normal [facility] Comment on above: Performed By: #### B MP #### [facility] [address] [place] [address] Dr. Jessica Gonzalez CORRECTED WBC Normal 4.0-11.0 [facility] Comment on above: Performed By: #### B MP #### [facility] [address] [place] [address] Dr. Jessica Gonzalez EOS # 0.00 103/ul Normal 0.00-0.70 [facility] Comment on above: Performed By: #### B MP #### [facility] [address] [place] [address] Dr. Jessica Gonzalez EOS% 0.0 % Critically low 0.9-7.0 [facility] Comment on above: Performed By: #### B MP #### [facility] [address] [place] [address] Dr. Jessica Gonzalez HCT 34.2 % Critically low 36.0-48.0 [facility] Comment on above: Performed By: #### B MP #### [facility] [address] [place] [address] Dr. Jessica Gonzalez HGB 11.6 g/dl Critically low 12.0-16.0 [facility] Comment on above: Performed By: #### B MP #### [facility] [address] [address] [address] Jessica Gonzalez LYMPHM # 0.60 103/ul Critically low 1.20-3.80 [facility] Comment on above: Performed By: #### B MP #### [facility] [address] [place] [address] Dr. Jessica Gonzalez LYMPHM% 3.0 % Critically low 20.5-60.0 [facility] Comment on above: Performed By: #### B MP #### [facility] [address] [place] [address] Dr. Jessica Gonzalez MCH 33.5 pg Normal 26.7-34.0 [facility] Comment on above: Performed By: #### B MP #### [facility] [address] [place] [address] Dr. Jessica Gonzalez MCHC 33.9 g/dl Normal 29.9-35.[address] [facility] Comment on above: Performed By: #### B MP #### [facility] [address] [place] [address] Dr. Jessica Gonzalez MCV 98.8 fL Normal 81.0-99.[address] [facility] Comment on above: Performed By: #### B MP #### [facility] [address] [place] [address] Dr. Jessica Gonzalez METAMYELOCYTE # 0.2 103/ul Normal [facility] Comment on above: Performed By: #### B MP #### [facility] [address] [place] [address] Dr. Jessica Gonzalez METAMYELOCYTE % 1 % Normal [facility] Comment on above: Performed By: #### B MP #### [facility] [address] [place] [address] Dr. Jessica Gonzalez MONOM# 0.60 103/ul Normal 0.30-0.[address] [facility] Comment on above: Performed By: #### B MP #### [facility] [address] [place] [address] Dr. Jessica Gonzalez MONOM% 3.0 % Normal 1.7-12.[address] [facility] Comment on above: Performed By: #### B MP #### [facility] [address] [address] [address] Jessica Gonzalez MPV 9.7 fL Normal 9.5-13.5 [facility] Comment on above: Performed By: #### B MP #### [facility] [address] [address] [address] Jessica Gonzalez MYELOCYTE # Normal [facility] Comment on above: Performed By: #### B MP #### [facility] [address] [address] [address] Jessica Gonzalez MYELOCYTE % Normal [facility] Comment on above: Performed By: #### B MP #### [facility] [address] [place] [address] Dr. Jessica Gonzalez NRBC Normal [facility] Comment on above: Performed By: #### B MP #### [facility] [address] [place] [address] Dr. Jessica Gonzalez PLT 233 103/ul Normal 150-450 [facility] Comment on above: Performed By: #### B MP #### [facility] [address] [address] [address] Jessica Gonzalez RBC 3.46 106/ul Critically low 4.20-5.40 [facility] Comment on above: Performed By: #### B MP #### [facility] [address] [place] [address] Dr. Jessica Gonzalez RDW 13.1 % Normal 11.0-15.0 [facility] Comment on above: Performed By: #### B MP #### [facility] [address] [address] [address] Jessica Gonzalez SEG # 17.31 103/ul Critically high 1.40-6.50 [facility] Comment on above: Performed By: #### B MP #### [facility] [address] [place] [address] Dr. Jessica Gonzalez SEG % 87.0 % Critically high 43.0-75.0 [facility] Comment on above: Performed By: #### B MP #### [facility] [address] [place] [address] Dr. Jessica Gonzalez WBC 19.9 103/ul Critically high 4.0-11.0 [facility] Comment on above: Performed By: #### B #### [facility] [address] [place] [address] Dr. Jessica Gonzalez PROF CHEM 8 (BAS METB)on Anion gap [Moles/Vol] 11.7 mmol/L Normal [facility] Comment on above: Performed By: #### C VDTBH #### [facility] [address] [place] [address] Dr. Jessica Gonzalez Calcium [Mass/Vol] 9.5 mg/dL Normal 8.4-10.2 [facility] Comment on above: Performed By: #### C VDTBH #### [facility] [address] [place] [address] Dr. Jessica Gonzalez Chloride [Moles/Vol] 104 mmol/L Normal 98-107 [facility] Comment on above: Performed By: #### C VDTB #### [facility] [address] [place] [address] Dr. Jessica Gonzalez CO2 [Moles/Vol] 27.0 mmol/L Normal 22.0-30.0 [facility] Comment on above: Performed By: #### C VDTBH #### [facility] [address] [place] [address] Dr. Jessica Gonzalez Creatinine [Mass/Vol] 0.69 mg/dL Normal 0.52-1.04 [facility] Comment on above: Performed By: #### C VDTBH #### [facility] [address] [place] [address] Dr. Jessica Gonzalez EGFR-AF BURUNDIAN >60 Normal >=60 [facility] Comment on above: Performed By: #### C VDTBH #### [facility] [address] [place] [address] Dr. Jessica Gonzalez EGFR-NON AF BURUNDIAN >60 Normal >=[address] [facility] Comment on above: Performed By: #### C VDTBH #### [facility] [address] [address] [address] Jessica Gonzalez Glucose [Mass/Vol] 163 mg/dL Critically high 74-106 [facility] Comment on above: Performed By: #### C VDTBH #### [facility] [address] [place] [address] Dr. Jessica Gonzalez Potassium [Moles/Vol] 3.7 mmol/L Normal 3.4-5.0 [facility] Comment on above: Performed By: #### C VDTBH #### [facility] [address] [place] [address] Dr. Jessica Gonzalez Sodium [Moles/Vol] 139 mmol/L Normal 137-145 [facility] Comment on above: Performed By: #### C VDTBH #### [facility] [address] [place] [address] Dr. Jessica Gonzalez Urea nitrogen [Mass/Vol] 20.0 mg/dL Critically high 7.0-17.0 [facility] Comment on above: Performed By: #### C VDTBH #### [facility] [address] [place] [address] Dr. Jessica Gonzalez Urea nitrogen/Creatinine [Mass ratio] 29.0 mg/mg Normal [facility] Comment on above: Performed By: #### C VDTBH #### [facility] [address] [place] [address] Dr. Jessica Gonzalez XR CHEST 2 Von [...] by: CALI BRITO Date: 2021-06-10 07:02 Normal [facility] CBC AUTO DIFFon 06-09-2021 BASO # 0.1 103/ul Normal 0.0-0.1 [facility] Comment on above: Performed By: #### C BC #### [facility] [address] [place] [address] Dr. Jessica Gonzalez Basophils/100 WBC (Bld) 0.4 % Normal 0.2-2.0 [facility] Comment on above: Performed By: #### C BC #### [facility] [address] [place] [address] Dr. Jessica Gonzalez EO # 0.0 103/ul Normal 0.0-0.7 [facility] Comment on above: Performed By: #### C BC #### [facility] [address] [place] [address] Dr. Jessica Gonzalez Eosinophils/100 WBC (Bld) 0.0 % Critically low 0.9-7.0 [facility] Comment on above: Performed By: #### C BC #### [facility] [address] [place] [address] Dr. Jessica Gonzalez Erythrocyte distribution width (RBC) [Ratio] 12.8 % Normal 11.0-15.0 [facility] Comment on above: Performed By: #### C BC #### [facility] [address] [place] [address] Dr. Jessica Gonzalez Hematocrit (Bld) [Volume fraction] 37.2 % Normal 36.0-48.0 [facility] Comment on above: Performed By: #### C BC #### [facility] [address] [place] [address] Dr. Jessica Gonzalez Hemoglobin (Bld) [Mass/Vol] 12.6 g/dL Normal 12.0-16.0 [facility] Comment on above: Performed By: #### C BC #### [facility] [address] [place] [address] Dr. Jessica Gonzalez IG # 0.22 10e3/ul Critically high 0.00-0.03 [facility] Comment on above: Performed By: #### C BC #### [facility] [address] [place] [address] Dr. Jessica Gonzalez IG % 1.2 % Critically high 0.0-0.5 [facility] Comment on above: Performed By: #### C BC #### [facility] [address] [place] [address] Dr. Jessica Gonzalez LYMPH # 0.8 103/ul Critically low 1.2-3.8 [facility] Comment on above: Performed By: #### C BC #### [facility] [address] [place] [address] Dr. Jessica Gonzalez Lymphocytes/100 WBC (Bld) 4.2 % Critically low 20.5-60.0 [facility] Comment on above: Performed By: #### C BC #### [facility] [address] [place] [address] Dr. Jessica Gonzalez MANUAL DIFF REQ NO Normal [facility] Comment on above: Performed By: #### C BC #### [facility] [address] [place] [address] Dr. Jessica Gonzalez MCH (RBC) [Entitic mass] 33.4 pg Normal 26.7-34.0 [facility] Comment on above: Performed By: #### C BC #### [facility] [address] [place] [address] Dr. Jessica Gonzalez MCHC (RBC) [Mass/Vol] 33.9 g/dL Normal 29.9-35.2 [facility] Comment on above: Performed By: #### C BC #### [facility] [address] [place] [address] Dr. Jessica Gonzalez MCV (RBC) [Entitic vol] 98.7 fL Normal 81.0-99.0 [facility] Comment on above: Performed By: #### C BC #### [facility] [address] [place] [address] Dr. Jessica Gonzalez MONO # 0.4 103/ul Normal 0.3-0.8 [facility] Comment on above: Performed By: #### C BC #### [facility] [address] [place] [address] Dr. Jessica Gonzalez Monocytes/100 WBC (Bld) 2.3 % Normal 1.7-12.0 [facility] Comment on above: Performed By: #### C BC #### [facility] [address] [address] [address] Jessica Gonzalez NEUT # 17.0 103/ul Critically high 1.4-6.5 [facility] Comment on above: Performed By: #### C BC #### [facility] [address] [address] [address] Jessica Gonzalez Neutrophils/100 WBC (Bld) 91.9 % Critically high 43.0-75.0 [facility] Comment on above: Performed By: #### C BC #### [facility] [address] [address] [address] Jessica Gonzalez Platelet mean volume (Bld) [Entitic vol] 9.9 fL Normal 9.5-13.5 [facility] Comment on above: Performed By: #### C BC #### [facility] [address] [place] [address] Dr. Jessica Gonzalez PLT 247 103/ul Normal 150-450 [facility] Comment on above: Performed By: #### C BC #### [facility] [address] [address] [address] Jessica Gonzalez RBC 3.77 106/ul Critically low 4.20-5.40 [facility] Comment on above: Performed By: #### C BC #### [facility] [address] [address] [address] Jessica Gonzalez WBC 18.5 103/ul Critically high 4.0-11.0 [facility] Comment on above: Performed By: #### C BC #### [facility] [address] [place] [address] Dr. Jessica Gonzalez PROF CHEM 8 (BAS METB)on Anion gap [Moles/Vol] 15.3 mmol/L Normal [facility] Comment on above: Performed By: #### C VDTBH #### [facility] [address] [address] [address] Jessica Gonzalez Calcium [Mass/Vol] 9.8 mg/dL Normal 8.4-10.2 [facility] Comment on above: Performed By: #### C VDTBH #### [facility] [address] [address] [address] Jessica Gonzalez Chloride [Moles/Vol] 102 mmol/L Normal 98-107 [facility] Comment on above: Performed By: #### C VDTBH #### [facility] [address] [address] [address] Jessica Gonzalez CO2 [Moles/Vol] 24.1 mmol/L Normal 22.0-30.0 [facility] Comment on above: Performed By: #### C VDTBH #### [facility] [address] [address] [address] Jessica Gonzalez Creatinine [Mass/Vol] 0.83 mg/dL Normal 0.52-1.04 [facility] Comment on above: Performed By: #### C VDTBH #### [facility] [address] [place] [address] Dr. Jessica Gonzalez EGFR-AF BURUNDIAN >60 Normal >=60 [facility] Comment on above: Performed By: #### C VDTBH #### [facility] [address] [place] [address] Dr. Jessica Gonzalez EGFR-NON AF BURUNDIAN >60 Normal >=60 [facility] Comment on above: Performed By: #### C VDTBH #### [facility] [address] [place] [address] Dr. Jessica Gonzalez Glucose [Mass/Vol] 165 mg/dL Critically high 74-106 [facility] Comment on above: Performed By: #### C VDTBH #### [facility] [address] [address] [address] Jessica Gonzalez Potassium [Moles/Vol] 3.4 mmol/L Normal 3.4-5.0 [facility] Comment on above: Performed By: #### C VDTBH #### [facility] [address] [place] [address] Dr. Jessica Gonzalez Sodium [Moles/Vol] 138 mmol/L Normal 137-145 [facility] Comment on above: Performed By: #### C VDTBH #### [facility] [address] [place] [address] Dr. Jessica Gonzalez Urea nitrogen [Mass/Vol] 21.0 mg/dL Critically high 7.0-17.0 [facility] Comment on above: Performed By: #### C VDTBH #### [facility] [address] [place] [address] Dr. Jessica Gonzalez Urea nitrogen/Creatinine [Mass ratio] 25.3 mg/mg Normal [facility] Comment on above: Performed By: #### C VDTBH #### [facility] [address] [place] [address] Dr. Jessica Gonzalez RESPIRATORY PANEL PLUSon Adenovirus Not detected Normal NOT DETECTED [facility] Comment on above: Performed By: #### S PUTGS #### [facility] [address] [place] [address] Dr. Jessica Jack. Parapertusis Not detected Normal NOT DETECTED [facility] Comment on above: Performed By: #### S PUTGS #### [facility] [address] [place] [address] Dr. Jessica Geller Pertussis Not detected Normal NOT DETECTED [facility] Comment on above: Performed By: #### S PUTGS #### [facility] [address] [place] [address] Dr. Jessica Gonzalez Chlamydia Pneumoniae Not detected Normal NOT DETECTED [facility] Comment on above: Performed By: #### S PUTGS #### [facility] [address] [place] [address] Dr. Jessica Gonzalez Coronavirus 229E Not detected Normal NOT DETECTED [facility] Comment on above: Performed By: #### S PUTGS #### [facility] [address] [place] [address] Dr. Jessica Gonzalez Coronavirus HKU1 Not detected Normal NOT DETECTED [facility] Comment on above: Performed By: #### S PUTGS #### [facility] [address] [place] [address] Dr. Jessica Gonzalez Coronavirus NL63 Not detected Normal NOT DETECTED [facility] Comment on above: Performed By: #### S PUTGS #### [facility] [address] [address] [address] Jessica Gonzalez Coronavirus OC43 Not detected Normal NOT DETECTED [facility] Comment on above: Performed By: #### S PUTGS #### [facility] [address] [address] [address] Jessica Gonzalez Influenza A H1 2009 Not detected Normal NOT DETECTED [facility] Comment on above: Performed By: #### S PUTGS #### [facility] [address] [address] [address] Jessica Gonzalez Influenza A H3 Not detected Normal NOT DETECTED [facility] Comment on above: Performed By: #### S PUTGS #### [facility] [address] [place] [address] Dr. Jessica Gonzalez Influenza B Not detected Normal NOT DETECTED [facility] Comment on above: Performed By: #### S PUTGS #### [facility] [address] [place] [address] Dr. Jessica Gonzalez Metapneumovirus Not detected Normal NOT DETECTED [facility] Comment on above: Performed By: #### S PUTGS #### [facility] [address] [place] [address] Dr. Jessica Gonzalez Mycoplas. Pneumoniae Not detected Normal NOT DETECTED [facility] Comment on above: Performed By: #### S PUTGS #### [facility] [address] [place] [address] Dr. Jessica Gonzalez Parainfluenza 1 Not detected Normal NOT DETECTED [facility] Comment on above: Performed By: #### S PUTGS #### [facility] [address] [address] [address] Jessica Gonzalez Parainfluenza 2 Not detected Normal NOT DETECTED [facility] Comment on above: Performed By: #### S PUTGS #### [facility] [address] [place] [address] Dr. Jessica Gonzalez Parainfluenza 3 Not detected Normal NOT DETECTED [facility] Comment on above: Performed By: #### S PUTGS #### [facility] [address] [place] [address] Dr. Jessica Gonzalez Parainfluenza 4 Not detected Normal NOT DETECTED [facility] Comment on above: Performed By: #### S PUTGS #### [facility] [address] [place] [address] Dr. Jessica Gonzalez Rhino/Enterovirus Not detected Normal NOT DETECTED [facility] Comment on above: Performed By: #### S PUTGS #### [facility] [address] [place] [address] Dr. Jessica Gonzalez RP2 Header 1 RESPIRATORY PANEL: VIRUSES Normal [facility] Comment on above: Performed By: #### S PUTGS #### [facility] [address] [place] [address] Dr. Jessica Gonzalez RP2 Header 2 RESPIRATORY PANEL: BACTERIA Normal [facility] Comment on above: Performed By: #### S PUTGS #### [facility] [address] [place] [address] Dr. Jessica Gonzalez RSV Not detected Normal NOT DETECTED [facility] Comment on above: Performed By: #### S PUTGS #### [facility] [address] [place] [address] Dr. Jessica Gonzalez SARS-CoV-2 (COVID-19) RNA MASON+probe Ql (Unsp spec) Not detected Normal NOT DETECTED [facility] Comment on above: Performed By: #### S PUTGS #### [facility] [address] [place] [address] Dr. Jessica Gonzalez CBC W MANUAL DIFFon 06-08-19 22 ATYPICAL LYMPH # Normal [facility] Comment on above: Performed By: #### C VDTBH #### [facility] [address] [place] [address] Dr. Jessica Gonzalez ATYPICAL LYMPH % Normal [facility] Comment on above: Performed By: #### C VDTBH #### [facility] [address] [place] [address] Dr. Jessica Gonzalez BAND # 1.2 103/ul Critically high 0.0-0.3 [facility] Comment on above: Performed By: #### C VDTBH #### [facility] [address] [address] [address] Jessica Gonzalez BAND % 7 % Critically high 0-5 [facility] Comment on above: Performed By: #### C VDTBH #### [facility] [address] [place] [address] Dr. Jessica Gonzalez BASOM # 0.00 103/ul Normal 0.00-0.10 [facility] Comment on above: Performed By: #### C VDTBH #### [facility] [address] [place] [address] Dr. Jessica Gonzalez BASOM % 0.0 % Critically low 0.2-2.0 [facility] Comment on above: Performed By: #### C VDTBH #### [facility] [address] [place] [address] Dr. Jessica Gonzalez BLAST # Normal [facility] Comment on above: Performed By: #### C VDTBH #### [facility] [address] [place] [address] Dr. Jessica Gonzalez BLAST % Normal [facility] Comment on above: Performed By: #### C VDTBH #### [facility] [address] [place] [address] Dr. Jessica Gonzalez CORRECTED WBC Normal 4.0-11.0 [facility] Comment on above: Performed By: #### C VDTBH #### [facility] [address] [place] [address] Dr. Jessica Gonzalez EOS # 0.00 103/ul Normal 0.00-0.70 [facility] Comment on above: Performed By: #### C VDTBH #### [facility] [address] [place] [address] Dr. Jessica Gonzalez EOS% 0.0 % Critically low 0.9-7.0 [facility] Comment on above: Performed By: #### C VDTBH #### [facility] [address] [place] [address] Dr. Jessica Gonzalez HCT 37.1 % Normal 36.0-48.0 [facility] Comment on above: Performed By: #### C VDTBH #### [facility] [address] [place] [address] Dr. Jessica Gonzalez HGB 12.3 g/dl Normal 12.0-16.0 [facility] Comment on above: Performed By: #### C VDTBH #### [facility] [address] [place] [address] Dr. Jessica Gonzalez LYMPHM # 1.17 103/ul Critically low 1.20-3.80 [facility] Comment on above: Performed By: #### C VDTBH #### [facility] [address] [place] [address] Dr. Jessica Gonzalez LYMPHM% 7.0 % Critically low 20.5-60.0 [facility] Comment on above: Performed By: #### C VDTBH #### [facility] [address] [place] [address] Dr. Jessica Gonzalez MCH 33.2 pg Normal 26.7-34.0 [facility] Comment on above: Performed By: #### C VDTBH #### [facility] [address] [place] [address] Dr. Jessica Gonzalez MCHC 33.2 g/dl Normal 29.9-35.2 [facility] Comment on above: Performed By: #### C VDTBH #### [facility] [address] [place] [address] Dr. Jessica Gonzalez MCV 100.3 fL Critically high 81.0-99.0 [facility] Comment on above: Performed By: #### C VDTBH #### [facility] [address] [place] [address] Dr. Jessica Gonzalez METAMYELOCYTE # Normal [facility] Comment on above: Performed By: #### C VDTBH #### [facility] [address] [place] [address] Dr. Jessica Gonzalez METAMYELOCYTE % Normal [facility] Comment on above: Performed By: #### C VDTBH #### [facility] [address] [place] [address] Dr. Jessica Gonzalez MONOM# 0.67 103/ul Normal 0.30-0.80 [facility] Comment on above: Performed By: #### C VDTBH #### [facility] [address] [place] [address] Dr. Jessica Gonzalez MONOM% 4.0 % Normal 1.7-12.0 [facility] Comment on above: Performed By: #### C VDTBH #### [facility] [address] [place] [address] Dr. Jessica Gonzalez MPV 9.5 fL Normal 9.5-13.5 [facility] Comment on above: Performed By: #### C VDTBH #### [facility] [address] [place] [address] Dr. Jessica Gonzalez MYELOCYTE # Normal [facility] Comment on above: Performed By: #### C VDTBH #### [facility] [address] [place] [address] Dr. Jessica Gonzalez MYELOCYTE % Normal [facility] Comment on above: Performed By: #### C VDTBH #### [facility] [address] [place] [address] Dr. Jessica Gonzalez NRBC Normal [facility] Comment on above: Performed By: #### C VDTBH #### [facility] [address] [place] [address] Dr. Jessica Gonzalez PLT 206 103/ul Normal 150-450 [facility] Comment on above: Performed By: #### C VDTBH #### [facility] [address] [place] [address] Dr. Jessica Gonzalez RBC 3.70 106/ul Critically low 4.20-5.40 [facility] Comment on above: Performed By: #### C VDTBH #### [facility] [address] [place] [address] Dr. Jessica Gonzalez RDW 12.4 % Normal 11.0-15.0 [facility] Comment on above: Performed By: #### C VDTBH #### [facility] [address] [address] [address] Jessica Gonzalez SEG # 13.69 103/ul Critically high 1.40-6.50 [facility] Comment on above: Performed By: #### C VDTBH #### [facility] [address] [address] [address] Jessica Gonzalez SEG % 82.0 % Critically high 43.0-75.0 [facility] Comment on above: Performed By: #### C VDTBH #### [facility] [address] [address] [address] Jessica Gonzalez WBC 16.7 103/ul Critically high 4.0-11.0 [facility] Comment on above: Performed By: #### C VDTBH #### [facility] [address] [place] [address] Dr. Jessica Gonzalez PROF CHEM 8 (BAS METB)on Anion gap [Moles/Vol] 14.4 mmol/L Normal [facility] Comment on above: Performed By: #### S PUTGS #### [facility] [address] [place] [address] Dr. Jessica Gonzalez Calcium [Mass/Vol] 9.8 mg/dL Normal 8.4-10.2 [facility] Comment on above: Performed By: #### S PUTGS #### [facility] [address] [place] [address] Dr. Jessica Gonzalez Chloride [Moles/Vol] 100 mmol/L Normal 98-[address] [facility] Comment on above: Performed By: #### S PUTGS #### [facility] [address] [place] [address] Dr. Jessica Gonzalez CO2 [Moles/Vol] 25.7 mmol/L Normal 22.0-30.0 [facility] Comment on above: Performed By: #### S PUTGS #### [facility] [address] [place] [address] Dr. Jessica Gonzalez Creatinine [Mass/Vol] 0.87 mg/dL Normal 0.52-1.04 [facility] Comment on above: Performed By: #### S PUTGS #### [facility] [address] [address] [address] Jessica Gonzalez EGFR-AF BURUNDIAN >60 Normal >=60 [facility] Comment on above: Performed By: #### S PUTGS #### [facility] [address] [address] [address] Jessica Gonzalez EGFR-NON AF BURUNDIAN >60 Normal >=60 [facility] Comment on above: Performed By: #### S PUTGS #### [facility] [address] [address] [address] Jessica Gonzalez Glucose [Mass/Vol] 194 mg/dL Critically high 74-106 [facility] Comment on above: Performed By: #### S PUTGS #### [facility] [address] [address] [address] Jessica Gonzalez Potassium [Moles/Vol] 3.1 mmol/L Critically low 3.4-5.0 [facility] Comment on above: Performed By: #### S PUTGS #### [facility] [address] [address] [address] Jessica Gonzalez Sodium [Moles/Vol] 137 mmol/L Normal 137-145 [facility] Comment on above: Performed By: #### S PUTGS #### [facility] [address] [address] [address] Jessica Gonzalez Urea nitrogen [Mass/Vol] 17.0 mg/dL Normal 7.0-17.0 [facility] Comment on above: Performed By: #### S PUTGS #### [facility] [address] [address] [address] Jessica Gonzalez Urea nitrogen/Creatinine [Mass ratio] 19.5 mg/mg Normal [facility] Comment on above: Performed By: #### S PUTGS #### [facility] [address] [address] [address] Jessica Gonzalez SPUTUM GRAM STAINon 06-08-19 COMMENTS Normal [facility] Comment on above: Performed By: #### S PUTGS #### [facility] [address] [address] [address] Jessica Gonzalez DIPHTHEROIDS Normal [facility] Comment on above: Performed By: #### S PUTGS #### [facility] [address] [address] [address] Jessica Gonzalez EPITHELIALS <[address] [facility] Comment on above: Performed By: #### S PUTGS #### [facility] [address] [address] [address] Jessica Gonzalez FUNGAL ELEMENTS Normal [facility] Comment on above: Performed By: #### S PUTGS #### [facility] [address] [address] [address] Jessica Gonzalez GRAM NEG BACILLI Normal [facility] Comment on above: Performed By: #### S PUTGS #### [facility] [address] [place] [address] Dr. Jessica Gonzalez GRAM NEG DIPPLOCOCCI Normal [facility] Comment on above: Performed By: #### S PUTGS #### [facility] [address] [address] [address] Jessica Gonzalez GRAM POS BACILLI RARE Normal [facility] Comment on above: Performed By: #### S PUTGS #### [facility] [address] [address] [address] Jessica Gonzalez GRAM POSITIVE COCCI FEW Normal [facility] Comment on above: Performed By: #### S PUTGS #### [facility] [address] [address] [address] Jessica Gonzalez WBC (Bld) [#/Vol] 10*3/uL Normal [facility] Comment on above: Performed By: #### S PUTGS #### [facility] [address] [address] [address] Jessica Gonzalez XR CHEST 2 Von [...] CALI BRITO Date: 2021-06-08 06:[address] [facility] CBC AUTO DIFFon 06-07-2021 BASO # 0.0 103/ul Normal 0.0-0.[address] [facility] Comment on above: Performed By: #### C BC #### [facility] [address] [place] [address] Dr. Jessica Gonzalez Basophils/100 WBC (Bld) 0.3 % Normal 0.2-2.[address] [facility] Comment on above: Performed By: #### C BC #### [facility] [address] [place] [address] Dr. Jessica Gonzalez EO # 0.1 103/ul Normal 0.0-0.[address] [facility] Comment on above: Performed By: #### C BC #### [facility] [address] [place] [address] Dr. Jessica Gonzalez Eosinophils/100 WBC (Bld) 0.5 % Critically low 0.9-7.[address] [facility] Comment on above: Performed By: #### C BC #### [facility] [address] [place] [address] Dr. Jessica Gonzalez Erythrocyte distribution width (RBC) [Ratio] 12.4 % Normal 11.0-15.[address] [facility] Comment on above: Performed By: #### C BC #### [facility] [address] [place] [address] Dr. Jessica Gonzalez Hematocrit (Bld) [Volume fraction] 40.5 % Normal 36.0-48.[address] [facility] Comment on above: Performed By: #### C BC #### [facility] [address] [place] [address] Dr. Jessica Gonzalez Hemoglobin (Bld) [Mass/Vol] 14.0 g/dL Normal 12.0-16.[address] [facility] Comment on above: Performed By: #### C BC #### [facility] [address] [address] [address] Jessica Gonzalez IG # 0.26 10e3/ul Critically high 0.00-0.03 [facility] Comment on above: Performed By: #### C BC #### [facility] [address] [address] [address] Jessica Gonzalez IG % 1.7 % Critically high 0.0-0.5 [facility] Comment on above: Performed By: #### C BC #### [facility] [address] [address] [address] Jessica Gonzalez LYMPH # 0.7 103/ul Critically low 1.2-3.8 [facility] Comment on above: Performed By: #### C BC #### [facility] [address] [place] [address] Dr. Jessica Gonzalez Lymphocytes/100 WBC (Bld) 4.6 % Critically low 20.5-60.0 [facility] Comment on above: Performed By: #### C BC #### [facility] [address] [address] [address] Jessica Gonzalez MANUAL DIFF REQ NO Normal [facility] Comment on above: Performed By: #### C BC #### [facility] [address] [address] [address] Jessica Gonzalez MCH (RBC) [Entitic mass] 34.2 pg Critically high 26.7-34.0 [facility] Comment on above: Performed By: #### C BC #### [facility] [address] [address] [address] Jessica Gonzalez MCHC (RBC) [Mass/Vol] 34.6 g/dL Normal 29.9-35.[address] [facility] Comment on above: Performed By: #### C BC #### [facility] [address] [place] [address] Dr. Jessica Gonzalez MCV (RBC) [Entitic vol] 99.0 fL Normal 81.0-99.0 [facility] Comment on above: Performed By: #### C BC #### [facility] [address] [address] [address] Jessica Gonzalez MONO # 0.4 103/ul Normal 0.3-0.8 [facility] Comment on above: Performed By: #### C BC #### [facility] [address] [place] [address] Dr. Jessica Gonzalez Monocytes/100 WBC (Bld) 2.5 % Normal 1.7-12.0 [facility] Comment on above: Performed By: #### C BC #### [facility] [address] [place] [address] Dr. Jessica Gonzalez NEUT # 14.0 103/ul Critically high 1.4-6.5 [facility] Comment on above: Performed By: #### C BC #### [facility] [address] [place] [address] Dr. Jessica Gonzalez Neutrophils/100 WBC (Bld) 90.4 % Critically high 43.0-75.0 [facility] Comment on above: Performed By: #### C BC #### [facility] [address] [place] [address] Dr. Jessica Gonzalez Platelet mean volume (Bld) [Entitic vol] 9.6 fL Normal 9.5-13.[address] [facility] Comment on above: Performed By: #### C BC #### [facility] [address] [place] [address] Dr. Jessica Gonzalez PLT 168 103/ul Normal 150-[address] [facility] Comment on above: Performed By: #### C BC #### [facility] [address] [place] [address] Dr. Jessica Gonzalez RBC 4.09 106/ul Critically low 4.20-5.40 [facility] Comment on above: Performed By: #### C BC #### [facility] [address] [place] [address] Dr. Jessica Gonzalez WBC 15.5 103/ul Critically high 4.0-11.0 [facility] Comment on above: Performed By: #### C BC #### [facility] [address] [place] [address] Dr. Jessica Gonzalez CTA CHEST WO W [...] MULU GARCIA Date: 2021-06-07 05:[address] [facility] CULTURE BLOODon 06-07-2021 Microscopic examination of blood, culture Culture Observations: No growth at [address] [facility] Comment on above: Performed By: #### B MP #### [facility] [address] [address] [address] Jessica Gonzalez [facility]on SARS-CoV-2 (COVID-19) RNA MASON+probe Ql (Unsp spec) Not detected Normal NOT DETECTED [facility] Comment on above: Result Comment: When [...] for this test is supported by the [employer] of [employer] and Human Service's declaration that [...] used). Performed By: #### C VDTBH #### [facility] [address] [place] [address] Dr. Jessica Gonzalez LACTATE/LACTIC ACIDon 2021 Lactate [Moles/Vol] 1.8 mmol/L Normal 0.7-2.0 [facility] Comment on above: Performed By: #### C VDTBH #### [facility] [address] [place] [address] Dr. Jessica Gonzalez PROF 14(COMP METB)on 022 Albumin [Mass/Vol] 3.1 g/dL Critically low 3.5-5.[address] [facility] Comment on above: Performed By: #### C MP #### [facility] [address] [place] [address] Dr. Jessica Gonzalez Albumin/Globulin [Mass ratio] 0.8 {ratio} Normal [facility] Comment on above: Performed By: #### C MP #### [facility] [address] [place] [address] Dr. Jessica Gonzalez ALP [Catalytic activity/Vol] 89 U/L Normal 38-126 [facility] Comment on above: Performed By: #### C MP #### [facility] [address] [place] [address] Dr. Jessica Gonzalez ALT [Catalytic activity/Vol] 21 U/L Normal 9-52 [facility] Comment on above: Performed By: #### C MP #### [facility] [address] [place] [address] Dr. Jessica Gonzalez Anion gap [Moles/Vol] 13.2 mmol/L Normal [facility] Comment on above: Performed By: #### C MP #### [facility] [address] [place] [address] Dr. Jessica Gonzalez AST [Catalytic activity/Vol] 15 U/L Normal 14-36 [facility] Comment on above: Performed By: #### C MP #### [facility] [address] [address] [address] Jessica Gonzalez Bilirubin [Mass/Vol] 1.2 mg/dL Normal 0.2-1.3 [facility] Comment on above: Performed By: #### C MP #### [facility] [address] [address] [address] Jessica Gonzalez Calcium [Mass/Vol] 9.0 mg/dL Normal 8.4-10.2 [facility] Comment on above: Performed By: #### C MP #### [facility] [address] [address] [address] Jessica Gonzalez Chloride [Moles/Vol] 102 mmol/L Normal 98-107 [facility] Comment on above: Performed By: #### C MP #### [facility] [address] [address] [address] Jessica Gonzalez CO2 [Moles/Vol] 27.4 mmol/L Normal 22.0-30.0 [facility] Comment on above: Performed By: #### C MP #### [facility] [address] [address] [address] Jessica Gonzalez Creatinine [Mass/Vol] 1.05 mg/dL Critically high 0.52-1.04 [facility] Comment on above: Performed By: #### C MP #### [facility] [address] [address] [address] Jessica Gonzalez EGFR-AF BURUNDIAN >60 Normal >=60 [facility] Comment on above: Performed By: #### C MP #### [facility] [address] [address] [address] Jessica Gonzalez EGFR-NON AF BURUNDIAN 53 mL/min/1.73m2 Critically low >=60 [facility] Comment on above: Performed By: #### C MP #### [facility] [address] [address] [address] Jessica Gonzalez Globulin (S) [Mass/Vol] 3.9 g/dL Normal [facility] Comment on above: Performed By: #### C MP #### [facility] [address] [address] [address] Jessica Gonzalez Glucose [Mass/Vol] 133 mg/dL Critically high 74-106 [facility] Comment on above: Performed By: #### C MP #### [facility] [address] [address] [address] Jessica Gonzalez Potassium [Moles/Vol] 3.6 mmol/L Normal 3.4-5.0 [facility] Comment on above: Performed By: #### C MP #### [facility] [address] [address] [address] Jessica Gonzalez Protein [Mass/Vol] 7.0 g/dL Normal 6.1-8.2 [facility] Comment on above: Performed By: #### C MP #### [facility] [address] [address] [address] Jessica Gonzalez Sodium [Moles/Vol] 139 mmol/L Normal 137-145 [facility] Comment on above: Performed By: #### C MP #### [facility] [address] [address] [address] Jessica Gonzalez Urea nitrogen [Mass/Vol] 14.0 mg/dL Normal 7.0-17.0 [facility] Comment on above: Performed By: #### C MP #### [facility] [address] [address] [address] Jessica Gonzalez Urea nitrogen/Creatinine [Mass ratio] 13.3 mg/mg Normal [facility] Comment on above: Performed By: #### C MP #### [facility] [id number] Jessica Gonzalez XR CHEST 1 Von [...] by: TERELL BENITEZ Date: 2021-06-07 02:24 Normal [facility] Vital Signs Date Time Vital Sign Value Performing Clinician Facility 11-03-2024 11:37-0400 Body height 172.7 cm Piter Cleary MD Work Phone: [facility] 11-03-2024 11:37-0400 Body mass index (BMI) [Ratio] 32.39 kg/m2 Piter Cleary MD Work Phone: [facility] 11-03-2024 11:37-0400 Body temperature 97.11 [degF] Piter Cleary MD Work Phone: [facility] 11-03-2024 11:37-0400 Body weight 96.62 kg Piter Cleary MD Work Phone: [facility] 11-03-2024 11:37-0400 Diastolic blood pressure 68 mm[Hg] Piter Cleary MD Work Phone: [facility] 11-03-2024 11:37-0400 Heart rate 61 /min Piter Cleary MD Work Phone: [facility] 11-03-2024 11:37-0400 Respiratory rate 20 /min Piter Cleary MD Work Phone: [facility] 11-03-2024 11:37-0400 SaO2% (BldA) [Mass fraction] 97 % Piter Cleary MD Work Phone: [facility] 11-03-2024 11:37-0400 Systolic blood pressure 122 mm[Hg] Piter Cleary MD Work Phone: [facility] 06-05-2024 09:22-0500 Body height 172.7 cm Piter Cleary MD Work Phone: [facility] 06-05-2024 09:22-0500 Body mass index (BMI) [Ratio] 32.08 kg/m2 Piter Cleary MD Work Phone: [facility] 06-05-2024 09:22-0500 Body temperature 97.11 [degF] Piter Cleary MD Work Phone: [facility] 06-05-2024 09:22-0500 Body weight 95.71 kg Piter Cleary MD Work Phone: [facility] 06-05-2024 09:22-0500 Diastolic blood pressure 68 mm[Hg] Piter Cleary MD Work Phone: [facility] 06-05-2024 09:22-0500 Heart rate 91 /min Piter Cleary MD Work Phone: [facility] 06-05-2024 09:22-0500 Respiratory rate 20 /min Piter Cleary MD Work Phone: [facility] 06-05-2024 09:22-0500 SaO2% (BldA) [Mass fraction] 97 % Piter Cleary MD Work Phone: [facility] 06-05-2024 09:22-0500 Systolic blood pressure 124 mm[Hg] Piter Cleary MD Work Phone: [facility] 01-06-2024 10:42-0400 Body height 172.72 cm [facility] 01-06-2024 10:42-0400 Body mass index (BMI) [Ratio] 29.8 kg/m2 [facility] 01-06-2024 10:42-0400 Body temperature 98.2 [degF] [facility] 01-06-2024 10:42-0400 Body weight 89.07 kg [facility] 01-06-2024 10:42-0400 Diastolic blood pressure 87 mm[Hg] [facility] 01-06-2024 10:42-0400 Heart rate 75 /min [facility] 01-06-2024 10:42-0400 Respiratory rate 16 /min [facility] 01-06-2024 10:42-0400 SaO2% (BldA) [Mass fraction] 96 % [facility] 01-06-2024 10:42-0400 Systolic blood pressure 146 mm[Hg] [facility] 06-03-2023 14:45-0500 Body height 172.72 cm Erma Shields Other [employer] Other 06-03-2023 14:45-0500 Body mass index (BMI) [Ratio] 31.17 kg/m2 Erma Shields Other [employer] Other 06-03-2023 14:45-0500 Body temperature 98.1 [degF] Erma Shields Other [employer] Other 06-03-2023 14:45-0500 Body weight 92.99 kg Erma Shields Other [employer] Other 06-03-2023 14:45-0500 Respiratory rate 18 /min Erma Shields Other [employer] Other 06-03-2023 14:45-0500 SaO2% (BldA) [Mass fraction] 95 % Erma Shields Other [employer] Other Encounters Encounter Date Encounter Type Care Provider Facility Start: 11-03-2024 End: 11-03-2024 Bamboo flowsheet Piter Cleary MD Work Phone: [facility] Start: 11-03-2024 End: 11-03-2024 Bamboo flowsheet Piter Cleary MD Work Phone: [facility] Start: 11-03-2024 End: 11-03-2024 Patient encounter procedure Piter Cleary MD Work Phone: [facility] Work Phone: Start: 11-03-2024 End: 11-03-2024 Postop follow up visit related to original px Piter Cleary MD Work Phone: [facility] Comment on above: Medicare annual well ness visit, subsequent (Primary Dx); Benign hypertension (CMS/HCC); Class 1 obesity due to excess calories with serious comorbidity and body mass index (BMI) of 32.0 to 32.9 in adult; Chronic obstructive pulmonary disease, unspecified COPD type (CMS/HCC); Dyslipidemia (CMS/HCC); Encounter for long-term current use of medication; Pre-diabetes Start: 11-03-2024 End: 11-03-2024 ambulatory PITER CLEARY Not Available Start: 07-04-2024 End: 07-04-2024 Clinisync Result Encounter Generic External Data Provider [facility] Unsolicited Start: 07-04-2024 End: 07-04-2024 Clinisync Result Encounter Generic External Data Provider [facility] External [facility] Unsolicited Start: 06-05-2024 End: 06-05-2024 Bamboo flowsheet Piter Cleary MD Work Phone: [facility] Start: 06-05-2024 End: 06-05-2024 Bamboo flowsheet Piter Cleary MD Work Phone: [facility] Start: 06-05-2024 End: 06-05-2024 Office outpatient visit 25 minutes Piter Cleary MD Work Phone: [facility] Comment on above: Benign hypertension (CMS/HCC) (Primary Dx); SHAN (generalized anxiety disorder) (CMS/HCC); Chronic obstructive pulmonary disease, unspecified COPD type (CMS/HCC); Lower extremity edema; Gastroesophageal reflux disease without esophagitis Start: 06-05-2024 End: 06-05-2024 ambulatory PITER CLEARY Not Available Start: 02-05-2024 End: 02-05-2024 Bamboo flowsheet Magui Douglas [employer] Work Phone: [facility] Start: 02-05-2024 End: 02-05-2024 Bamboo flowsheet Magui Douglas [employer] Work Phone: [facility] Start: 02-05-2024 End: 02-05-2024 ambulatory MAGUI ARDONLIN Not Available Start: 01-17-2024 End: 01-17-2024 ambulatory MAGUI ARDONLIN Not Available Start: 01-10-2024 End: 01-10-2024 ambulatory MAGUI ARDONLIN Not Available Start: 01-06-2024 End: 01-06-2024 ambulatory [facility] Work Phone: Start: 01-06-2024 End: 01-06-2024 Patient encounter procedure [facility] Work Phone: Start: 12-27-2023 End: 12-27-2023 ambulatory MAGUI DOUGLAS Not Available Start: 12-03-2023 End: 12-03-2023 ambulatory PITER ROHITHJEFFRY Not Available Start: 06-03-2023 End: 06-03-2023 ambulatory Erma Shields Other [employer] Other Start: 06-03-2023 Office outpatient ne w 30 minutes Erma Shields [facility] Start: 06-07-2021 End: 06-15-2021 Evaluation and management of inpatient DR REAGAN MACDONALD Facility:H1 Start: 05-16-2021 End: 05-17-[address] ASTRID KELLY Facility:H1 Procedures Date Procedure Procedure Detail Performing Clinician Start: 07-04-2024 CT LUNG SCREENING LO W DOSE Generic External Data Provider Start: 02-05-2024 End: 02-05-2024 Psychotherapy w/patient 60 minutes SHAN (generalized anxiety disorder) (CMS/HCC) Magui Ardonlin [employer] Work Phone: Comment on above: SHAN (generalized anx iety disorder) (CMS/HCC) Plan of Treatment Date Care Activity Detail Author Start: 10-23-2025 Screening for malign ant neoplasm of colon [facility] Start: 05-07-2025 End: 05-07-2025 Patient encounter procedure 05/07/2025 9:00 AM EST Office Visit [facility] [address] [place] [address] Piter Cleary MD [address] [place] [address] [facility] Start: 11-03-2024 End: 11-03-2025 Basic metabolic 1998 panel - Serum or Plasma Basic metabolic panel Lab Routine Benign hypertension (CMS/HCC) Expected: 11/03/2024 (Approximate), Expires: 11/03/2025 [facility] Comment on above: Expected: 11/03/2024 (Approximate), Expires: 11/03/2025 Start: 11-03-2024 End: 11-03-2025 CBC W Auto Differential panel - Blood CBC and differential Lab Routine Encounter for long-term current use of medication Expected: 11/03/2024 (Approximate), Expires: 11/03/2025 [facility] Comment on above: Expected: 11/03/2024 (Approximate), Expires: 11/03/2025 Start: 11-03-2024 End: 11-03-2025 Hemoglobin A1c/Hemoglobin.total in Blood Hemoglobin A1c Lab Routine Pre-diabetes Expected: 11/03/2024 (Approximate), Expires: 11/03/2025 [facility] Work Phone: Comment on above: Expected: 11/03/2024 (Approximate), Expires: 11/03/2025 Start: 11-03-2024 End: 11-03-2025 Hepatic function 2000 panel - Serum or Plasma Hepatic function panel Lab Routine Encounter for long-term current use of medication Expected: 11/03/2024 (Approximate), Expires: 11/03/2025 [facility] Comment on above: Expected: 11/03/2024 (Approximate), Expires: 11/03/2025 Start: 11-03-2024 End: 11-03-2025 Lipid 1996 panel - Serum or Plasma Lipid panel Lab Routine Dyslipidemia (CMS/HCC) Expected: 11/03/2024 (Approximate), Expires: 11/03/2025 [facility] Comment on above: Expected: 11/03/2024 (Approximate), Expires: 11/03/2025 Start: 11-03-2024 End: 11-03-2025 Thyrotropin [Units/volume] in Serum or Plasma TSH Lab Routine Class 1 obesity due to excess calories with serious comorbidity and body mass index (BMI) of 32.0 to 32.9 in adult Expected: 11/03/2024 (Approximate), Expires: 11/03/2025 [facility] Comment on above: Expected: 11/03/2024 (Approximate), Expires: 11/03/2025 Start: 11-03-2024 End: 11-03-2024 Patient encounter procedure [facility] Comment on above: Arrived Start: 10-30-2024 Medicare Annual Wellness (AWV) Medicare Annual Wellness (AWV) [facility] Start: 06-09-2024 Screening for malign ant neoplasm of breast Mammogram [facility] Comment on above: Postponed from 10/02 (Patient Refused) Start: 06-05-2024 End: 06-05-2024 [facility] on above: Ar[facility] Start: 02-05-2024 End: 02-05-2024 Social Work 02/05/2024 8:[address] EDT Social Work [facility] [address] [place] [address] Magui Douglas, JAIRO-S [address] [place] [address] [facility] Comment on above: Arrived Start: 02-03-2024 Influenza vaccination Influenza Vacc ine (#1) [facility] Start: 10-03-1963 Pneumococcal Vaccine : 65+ Years (1 of 2 - PCV) Pneumococcal Vaccine: 65+ Years (1 of 2 - PCV) [facility] Start: 1955 Screening for malign ant neoplasm of colon [facility] Immunizations Immunization Date Immunization Notes Care Provider Fa cility 05-09-2024 Pneumococcal Conjuga te PCV 20 Piter Cleary MD Work Phone: [facility] 03-03-2024 RSV, recombinant, pr otein subunit RSVpreF, adjuvant reconstitu, 120mcg/0.5mL, PF (Arexvy) Piter Cleary MD Work Phone: [facility] 09-13-2024 influenza, high dose seasonal, preservative-free Piter Cleary MD Work Phone: [facility] 02-15-2024 influenza virus vacc ine, unspecified formulation Piter Cleary MD Work Phone: [facility] 04-11-2023 influenza virus vacc ine, unspecified formulation Magui GILLMayankS Work Phone: [facility] Healthcare Payers Date Payer Category Payer Medicare [employer] [id number] 2023-Present [address] [id number] 2023 Medicare (Managed Care) [facility] ADVANTAGE [id number] 2023 Medicare [id number] 1959 Unknown [id number] 1955 Unknown [id number] .[id number] 1957 Unknown [id number] .[id number] 1957 Unknown [id number] .2.1259 1957 Unknown [id number] .2.1259 1957 Unknown [id number] .2.1258 1957 Unknown [id number] [id number] .2.9 1957 Unknown [id number] [id number] .2.1258 1957 Unknown [id number] [id number] .2.1258 1957 Unknown [id number] .2.1258 Unknown Beason [id number] Social History Date Type Detail Facility Start: 12-03-2023 End: 11-03-2024 Sex Assigned At Latty [id number] Other Start: 01-06-2024 Tobacco smoking stat [facility] Smoker (finding) [facility] Start: 1955 Sex Assigned At Female F [facility] Start: 06-12-2023 Tobacco smoking stat [facility] Ex-smoker [facility] History of tobacco use Cigarette Smoker [facility] Start: 06-12-2023 End: 11-03-2024 Cigarettes smoked current (pack per day) - Reported 0.5 [facility] Start: 1955 Sex assigned at Not on file N [facility] Functional Status Date Assessment Result Facility 11-03-2024 Patient Health Quest ionnaire 2 item (PHQ-2) [Reported] [facility] History of Present illness Narrative 11-03-2024 Piter Cleary MD - 11/03/2024 12:15 PM Ciara Cleary MD - 11/03/2024 12:14 PM Ciara Cleary MD - 11/03/2024 12:14 PM Ciara Cleary MD - 11/03/2024 12:14 PM EDT Note Date & Type Note Facility 11-03-2024 History of Presen t illness Narrative Associated Problem(s): Medicare annual wellness visit, subsequent Due for labs. Discussed proper diet and regular aerobic exercise. Need aerobic exercise 5-6 days a week for 30 minutes at a time. Smaller portions and limit total calories. Cologuard normal October 2022. Tetanus every 10 years. Advised not to smoke. Associated Problem(s): COPD (chronic obstructive pulmonary disease) (CMS/[facility]) Breathing stable and continue trelegy. Follow up with habilitation assistant. Associated Problem(s): Class 1 obesity due to excess calories with serious comorbidity and body mass index (BMI) of 32.0 to 32.9 in adult Weight loss indicated. Associated Problem(s): Benign hypertension (CMS/[facility]) BP controlled and monitor PRN. Images from the original note were not included. Subjective Patient ID: Miranda Gilliland is a 69 y.o. female who presents for Medicare Annual Wellness Visit Subsequent (Wellness/). Presents for medicare annual wellness visit. Weight up 15 pounds in the past year. Active around house but no regular exercise or activity. Tries to watch diet and eat healthy. Increased fruits and vegetables. Smaller portions and limits snacking. Tries to limit total daily calories. Due for labs. Review of Systems Respiratory: Negative for cough, [...] There is no guarding or rebound. Musculoskeletal: General: No swelling or tenderness. Cervical back: Neck supple. Right lower leg: No edema. Left lower leg: No edema. Skin: Findings: No erythema or rash. Neurological: General: No focal deficit present. Mental Status: She is alert and oriented to person, place, and time. Cranial Nerves: No cranial nerve deficit. Motor: No weakness. Gait: Gait normal. Assessment/Plan Problem List Items Addressed This Visit Benign hypertension ([facility]/HCC) BP controlled and monitor PRN. Relevant Medications lisinopril-hydroCHLOROthiazide 10-12.5 MG tablet Other Relevant Orders Basic metabolic panel Dyslipidemia (CMS/HCC) Relevant Orders Lipid panel Pre-diabetes Relevant Orders Hemoglobin A1c COPD (chronic obstructive pulmonary disease) (CMS/HCC) Breathing stable and continue trelegy. Follow up with habilitation assistant. Encounter for long-term current use of medication Relevant Orders CBC and differential Hepatic function panel Class 1 obesity due to excess calories with serious comorbidity and body mass index (BMI) of 32.0 to 32.9 in adult Weight loss indicated. Relevant Orders TSH Medicare annual wellness visit, subsequent - Primary Due for labs. Discussed proper diet and regular aerobic exercise. Need aerobic exercise 5-6 days a week for 30 minutes at a time. Smaller portions and limit total calories. Cologuard normal October 2022. Tetanus every 10 years. Advised not to smoke. documented in this encounter [facility] History of Present illness Narrative 06-05-2024 [...] continue. Associated Problem(s): SHAN (generalized anxiety disorder) (CMS/HCC) Symptoms improved with wellbutrin and continue. Associated Problem(s): COPD (chronic obstructive pulmonary disease) (CMS/HCC) Breathing stable and continue trelegy. Refer to local habilitation assistant. Associated Problem(s): Benign hypertension (CMS/HCC) BP controlled and monitor PRN. Images from the original note were not included. Subjective Patient ID: Miranda Gilliland is a 68 y.o. female who presents [...] stable and continue trelegy. Refer to local habilitation assistant. SHAN (generalized anxiety disorder) (CMS/HCC) Symptoms improved with wellbutrin and continue. documented in this encounter [facility] Evaluation note 06-03-2023 Note Date & Type [...] fever/discomfort , cool mist humidifier. May use [place] as needed for cough, do not take any other OTCs while using [place]. Use Albuterol inhaler as directed. Patient to follow up with PCP in 2-3 days. Immediate eval if SOB, difficulty breathing, chest pain, dizziness, or other concerning symptoms. Patient verbalizes understanding and is agreeable to treatment plan. May, Acute cough (ICD-10 - R05.1) [employer] Other Clinical Note 05-16-2021 Note Date & [...] authenticated by: ASTRID KELLY Date: 2021-05-16 09:51 [facility] Clinical Note 05-16-2021 Note Date & [...] by: ASTRID KELLY Date: 2021-05-16 09:[address] [facility] Evaluation note Note Date & Type Note Facility Evaluation note Diagnosis Onset Date Acute conjunctivitis, bilateral acute [facility] Work Phone: Evaluation note Note Date & Type Note Facility Evaluation note Diagnosis SHAN (generalized anxiety disorder) ([facility]) Generalized anxiety disorder documented in this encounter [facility] Evaluation note Note Date & Type Note Facility Evaluation note Diagnosis RSV (respiratory syncytial virus pneumonia)- Primary Pneumonia due to respiratory syncytial virus COPD with acute exacerbation (CMS/HCC) Benign hypertension (CMS/HCC) Essential hypertension, benign Gastroesophageal reflux disease without esophagitis Esophageal reflux Chronic obstructive pulmonary disease, unspecified COPD type ([facility]/HCC) Benign hypertension ([facility]/HCC)- Primary Essential hypertension, benign Lower extremity edema Edema Chronic obstructive pulmonary disease, unspecified COPD type (CMS/HCC) Gastroesophageal reflux disease without esophagitis Esophageal reflux SHAN (generalized anxiety disorder) ([facility]) Generalized anxiety disorder Dyslipidemia ([facility]) Other and unspecified hyperlipidemia Encounter for long-term current use of medication Pre-diabetes Other abnormal glucose Obesity (BMI 30-39.9) Dermatitis Contact dermatitis and other eczema, due to unspecified cause Benign hypertension ([facility]/HCC)- Primary Essential hypertension, benign SHAN (generalized anxiety disorder) ([facility]/HCC) Generalized anxiety disorder Chronic obstructive pulmonary disease, unspecified COPD type ([facility]/HCC) Lower extremity edema Edema Gastroesophageal reflux disease without esophagitis Esophageal reflux documented in this encounter [facility] Evaluation note Note Date & Type Note Facility Evaluation note Diagnosis RSV (respiratory syncytial virus pneumonia)- Primary Pneumonia due to respiratory syncytial virus COPD with acute exacerbation (CMS/HCC) Benign hypertension ([facility]/HCC) Essential hypertension, benign Gastroesophageal reflux disease without esophagitis Esophageal reflux Chronic obstructive pulmonary disease, unspecified COPD type (CMS/HCC) Benign hypertension ([facility]/HCC)- Primary Essential hypertension, benign Lower extremity edema Edema Chronic obstructive pulmonary disease, unspecified COPD type (CMS/HCC) Gastroesophageal reflux disease without esophagitis Esophageal reflux SHAN (generalized anxiety disorder) ([facility]) Generalized anxiety disorder Dyslipidemia ([facility]) Other and unspecified hyperlipidemia Encounter for long-term current use of medication Pre-diabetes Other abnormal glucose Obesity (BMI 30-39.9) Dermatitis Contact dermatitis and other eczema, due to unspecified cause Benign hypertension ([facility])- Primary Essential hypertension, benign SHAN (generalized anxiety disorder) ([facility]) Generalized anxiety disorder Chronic obstructive pulmonary disease, unspecified COPD type ([facility]) Lower extremity edema Edema Gastroesophageal reflux disease without esophagitis Esophageal reflux Medicare annual wellness visit, subsequent- Primary Benign hypertension ([facility]) Essential hypertension, benign Class 1 obesity due to excess calories with serious comorbidity and body mass index (BMI) of 32.0 to 32.9 in adult Chronic obstructive pulmonary disease, unspecified COPD type ([facility]) Dyslipidemia ([facility]) Other and unspecified hyperlipidemia Encounter for long-term current use of medication Pre-diabetes Other abnormal glucose documented in this encounter [facility] History general Narrative - Reported Note Date & Type Note Facility History general Narrative - Reported Type Medical History hypertension Medical History asthma Surgical History tonsillectomy Surgical History reconstructive ear surgery Surgical History neuroma in right foot Surgical History tubal ligation Surgical History vein ablasion right leg Hospitalization History cellulitis Hospitalization History [facility] Other Summary Purpose Family History No Family History Records Found Relationship Condition Age at Onset Recorded Date/T anali father Unknown Advance Directives No Advanced Directives Records Found Advance Directive Response Recorded Date/ Time Advance Directives No January 05 9:43am Chief Complaint and Reason for Visit Chief Complaint Poss Nyssa eye Reason for Visit Acute conjunctivitis , bilateral Additional Source Comments INFORMATION SOURCE (unrecogn ized section and content) DATE CREATED AUTHOR 06/23/[address] [facility] [facility] DATE CREATED AUTHOR AUTHOR'S ORGANIZ ATION 11/03/2024 [facility] d[facility] Specialists EPIC REASON FOR VISIT (unrecogniz ed section and content) Reason Comments counseling session Reason Comments Follow-up 6m Reason Comments Medicare Annual Wellness Visit Subsequen t Wellness Care Teams (unrecognized sec tion and content) Team Status: Active Member Role Status Dates Piter Cleary MD Primary Care Provider Active Team Status: Inactive Member Role Status Dates Piter Cleary MD Primary Care Provider Active S tart: January 06, 2024 End: January 06, 2024 Gissel M Chris , [employer] Attending Provider Active S tart: January 06, 2024 End: January 06, 2024 Finish Carpenter Relationship Specialty Start Date End Date Piter Cleary MD [address] [place] [address] PCP - General Family Medicine 12/03/23 Finish Carpenter Relationship Specialty Start Date End Date Piter Cleary MD [address] [place] [address] PCP - General Family Medicine 12/03/23 Finish Carpenter Relationship Specialty Start Date End Date Piter Cleary MD [address] [place] [address] PCP - General Family Medicine 12/03/23 Finish Carpenter Relationship Specialty Start Date End Date Piter Cleary MD [address] [place] [address] PCP - General Family Medicine 12/03/23 Finish Carpenter Relationship Specialty Start Date End Date Piter Cleary MD [address] [place] [address] PCP - General Family Medicine 12/03/23 Finish Carpenter Relationship Specialty Start Date End Date Piter Cleary MD [address] [place] [address] PCP - General Family Medicine 12/03/23 Piter Cleary MD [address] [place] [address] PCP - Gregg YATES 06/04/24 Finish Carpenter Relationship Specialty Start Date End Date Piter Cleary MD [address] [place] [address] PCP - General Family Medicine 12/03/23 Piter Cleary MD [address] [place] [address] PCP - Gregg YATES 06/04/24 Goals (unrecognized section and content) Goals may [...] BE BASED ON THE PRIMARY CLINICAL RECORDS. [employer] [facility]. provides no warranty or guarantee of the accuracy or completeness of information in this document.
[2024-11-07 09:02] LABS: Basophils Percent Auto 0.6 % (0.2-2.0); Eosinophils Absolute Auto 0.1 10^3/uL (0.0-0.7); Eosinophils Percent Auto 1.3 % (0.9-7.0); Hematocrit 40.4 % (36.0-48.0); Hemoglobin 14.2 g/dL (12.0-16.0); Immature Granulocytes Abs Auto 0.01 10^3/uL (0.00-0.03); Immature Granulocytes Pct Auto 0.2 % (0.0-0.5); Lymphocytes Absolute Auto 1.3 10^3/uL (1.2-3.8); Lymphocytes Percent Auto 27.2 % (20.5-60.0); Mean Corpuscular HGB Conc 35.1 g/dL (29.9-35.2); Mean Corpuscular Hemoglobin 34.5 pg (26.7-34.0); Mean Corpuscular Volume 98.1 fL (81.0-99.0); Mean Platelet Volume 9.1 fL (9.5-13.5); Monocytes Absolute Auto 0.3 10^3/uL (0.3-0.8); Monocytes Percent Auto 5.9 % (1.7-12.0); Neutrophils Absolute Auto 3.1 10^3/uL (1.4-6.5); Neutrophils Percent Auto 64.8 % (43.0-75.0); Platelet Count 190 10^3/uL (150-450); Red Blood Count 4.12 10^6/uL (4.20-5.40); Red Cell Distribution Width 12.6 % (11.0-15.0); White Blood Count 4.8 10^3/uL (4.0-11.0)
[2024-11-07 10:30] LABS: Alanine Aminotransferase 26 U/L (14-59); Albumin Globulin Ratio 1.2; Albumin Level 3.3 g/dL (3.4-5.0); Alkaline Phosphatase 85 U/L (46-116); Anion Gap 9.6; Aspartate Amino Transferase 18 U/L (15-37); Bilirubin Direct 0.1 mg/dL (0.0-0.2); Bilirubin Total 0.4 mg/dL (0.2-1.0); Calcium 9.3 mg/dL (8.5-10.1); Carbon Dioxide 30.5 mmol/L (21.0-32.0); Chloride 106 mmol/L (98-107); Chol HDL Ratio 5.6; Cholesterol 231 mg/dL (<=200); Estimated GFR (African America >60 (>=60 mL/min/1.73m^2); Estimated GFR (Non-African Ame >60 (>=60 mL/min/1.73m^2); Globulin 2.8 g/dL; Glucose 100 mg/dL (74-106); HDL Cholesterol 41 mg/dL (40-60); Potassium 4.1 mmol/L (3.5-5.1); Sodium 142 mmol/L (136-145); Thyroid Stimulating Hormone 0.894 uIU/mL (0.358-3.740); Total Protein 6.1 g/dL (6.4-8.2); Triglycerides 321 mg/dL (<=150); VLDL CHOLESTEROL 64.2 mg/dL
[2024-11-07 13:02] LABS: Estimated Average Glucose 105 mg/dL; Glycohemoglobin A1C 5.3 % (4.5-6.2)
== END 2024-11-07 08:34 | disposition home or self-care (01) ==
LOC: LAB 08:35
PROVIDERS: PCP Family Medicine; Visit Provider Family Medicine
DX: R73.03 Prediabetes (principal); I10 Essential (primary) hypertension; Z79.899 Other long term (current) drug therapy; E78.5 Hyperlipidemia, unspecified; E66.811 Obesity, class 1; E66.09 Other obesity due to excess calories; Z68.32 Body mass index [BMI] 32.0-32.9, adult
CPT/HCPCS: 36415; 80048; 80061; 80076; 83036; 84443; 85025

== ENCOUNTER 2025-04-02 20:45 | Emergency (ER) | payer MEDICARE, SELFPAY ==
--- OUTSIDE RECORDS SUMMARY | 2012-10-23 06:48 | XMS_ITS | Continuity of Care Document ---
Author Organization [employer] [facility] Address [address] [facility] [place] [address] Phone Care Team Providers Care Key Account Executive Name Role Phone Unavailable Unavailable Unavailable Allergies, Adverse Reactions, Alerts Substance Reaction Status Criticality No Known allergies Medications Medication Instructions Dosage Effective Dates (start - stop) Status Comments Crestor 20 mg tablet take 1 tablet by oral route every day 20 MG - Active Joanne 180 mg tablet take 1 tablet by oral route every day - Active Trilipix 135 mg capsule,delayed release take 1 capsule by oral route every day - Active CoQ-10 100 mg capsule - Active ProAir HFA 90 mcg/actuation Aerosol Inhaler inhale 2 puff by inhalation route 2 times every day as needed 2 puff - Active montelukast 10 mg tablet take 1 tablet by oral route every day in the evening 10 MG - Active lisinopril-hydrochlo rothiazide 20 mg-12.5 mg tablet take 1 tablet by oral route every day 1.00 tablet - Active aspirin, buffered 81 mg tablet take by Oral route every day - Active Symbicort 80 mcg-4.5 mcg/actuation HFA Aerosol Inhaler inhale 2 puff by inhalation route 2 times every day in the morning and evening 2.00 puff - Active Procedures Procedure Date OFFICE/OUTPATIENT VISIT, EST OFFICE/OUTPATIENT VISIT, EST OFFICE/OUTPATIENT VISIT, EST OFFICE/OUTPATIENT VISIT, EST ROCEPHIN PER 250 MG Advance Directives Directive Yes / No Effective Date File Name Resuscitation Not Answered N/A N/A Life Support Not Answered N/A N/A Intubation Not Answered N/A N/A Antibiotics Not Answered N/A N/A IV Fluid Support Not Answered N/A N/A Tube Feed Not Answered N/A N/A Other Directive N/A N/A WARNING:The information contained in this section is historical and is provided for information only and does not constitute a legal document or any assurance that the information is still accurate. Please verify the information with the whitten of the legal document before using it for clinical purposes. Encounters Encounter Description Practice Location Reason(s) For Visit Diagnoses Date Provider Providers Copied on Encounter [facility], [address] [place] [address] [address], [place], [place], [id number] , tel:[phone] [facility] Hypertension, UnspecifiedAsth maOsteoarthrosi s, unspecified whether generalized or localized, involving unspecified siteCAD, UnspecifiedOthe r malignant neoplasm of unspecified siteDiabetes Mellitus Type 2, UncomplicatedGE RDRenal Insufficiency, AcuteUnspecifie d disorder of liverUnspecifie d disorder of thyroidVenous embolism and thrombosis of unspecified deep vessels of lower extremityAllerg ic rhinitis, cause unspecified No Information OFFICE/OUTPA TIENT VISIT, [facility], [address] [place] [address] [address], [place], [place], [id number] , [place] [phone] [facility] No Information 3 Corporate Phys[employer]. [address] [place] [address] [address], [place], [place], [id number], [place]. tel:[phone] Referring Provider: Physician , [address] [place] [address] [address], [place], [address] . tel:[phone] OFFICE/OUTPA TIENT VISIT, [facility], [address] [place] [address] B, [place], [place], [id number] , [place] [phone] [facility] No Information 2 Corporate Phys[employer]. [address] [place] [address] B, [place], [place], [id number], [place]. tel:[phone] Referring Provider: Physician , [address] [place] [address] B, [place], [address] . tel:[phone] OFFICE/OUTPA TIENT VISIT, [facility], [address] [place] [address] [address], [place], [place], [id number] , tel:[phone] [facility] No Information 2 1 2 Corporate Physician. [address] [place] [address] [address], [place], [place], [id number], [place]. tel:[phone] Referring Provider: Physician , [address] [place] [address] B, [place], [address] . tel:[phone] OFFICE/OUTPA TIENT VISIT, [facility], [address] [place] [address] [address], [place], [place], [id number] , tel:[phone] [facility] No Information 2 Corporate Physician. [address] [place] [address] B, [place], [place], [id number], [place]. tel:[phone] Referring Provider: Physician , [address] [place] [address] [address], [place], [address] . tel:[phone] Family History Family Member Type Diagnosis Age At Onset No Information Payers Payer name Insurance type Covered alliance party ID Vinny samaniego(s) [facility] [id number] Social History Type Description Quantity Date Captured Comments Sex Female Smoking Status No Information Chief Complaint And Reason For Visit No Information Reason For Referral Reason For Referral No Information History Of Present Illness Encounter Date Complaint History Of Prese nt Illness No Information Functional Status Date Functional Assessmen t No Information Instructions Date Instruction Additional Infor mation No Information Assessments Type Assessment Date No Information Patient Care Teams Name Effective Dates (start - stop) Status Members No Information
--- OUTSIDE RECORDS SUMMARY | 2024-07-21 05:00 | XMS_ITS ---
Author Organization [facility] [place] Address [address] [place] [address] Care Team Providers Care Genetic Counselor Name Role Phone Omega SPENCER, Piter Primary Care Provider Unavailab Cindi Mayberry Unavailable [phone] REASON FOR VISIT 6-12m Asthma f/u Encounters Encounter Location Date Provider Diagnosis [facility] [address] [place] [address] [address] [place] [address] 07/21/2024 Cindi Mccullough Plan Of Treatment No Information Progress Notes * KATHRODYXuan ADOB:06/1955 (69 yo F)Acc No.[id number]:07/21/2024 UNLOCKED PROGRESS NOTE Progress Note Patient: Xuan PERRY :?Cindi Mccullough NPDOB:1955???Age:68 Y ???Sex:FemaleDate:07/21/2024Phone:[phone]:[address] [place], [place]-[address]Pcp:Piter Duff MD Subjective: * Chief Complaints: * 1 . 6-12m Asthma f/u. * Medical History: Objective: * Vitals: Assessment: Plan: * Treatment: * * Electronic signature of Cindi Mccullough NP, [id number] on 04/02/2025 at 09:23 PM EDTSign off status: PendingVisit Status:?CANC (Cancelled) * Provider: Jez Mccullough NP Date: 0 07/21/2024 Generated for Printing/Faxing/eTransmitting on:?04/02/2025 09:23 PM EDT
[2025-04-02] VITALS (16 sets, daily range): BP systolic 138–233; BP diastolic 73–98; PULSE 76–98; TEMP 36.5; O2SAT 94–99; BMI 33.5
--- NOTE | 2025-04-02 21:02 | ECG_ITS ---
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 Measurements Intervals [place] Rate: 90 P: 90 SD: 152 QRS: 77 QRSD: 86 T: 78 QT: 346 QTc: 394 Interpretive Statements 1100 Sinus rhythm 0102 ARTIFACT PRESENT 9110 normal ECG Compared to ECG 06/05/2023 16:18:03 Sinus tachycardia no longer present Electronically Signed On 04-03-2025 6:28:19 EDT by KASSI AREVALO M.D.
--- NOTE | 2025-04-02 21:02 | XR_ITS ---
The [address] [address] Patient Name: MIRANDA GILLILAND MRN: [id number] date: 1955 Sex: F Assigned Patient Location: ER Current Patient Location: Accession/Order Number: [id number] Exam Date: 04/02/2025 21:27 Report Date: 04/02/2025 22:53 At the request of: SATHYA HELM Procedure: XR chest 1V PA CHEST: CLINICAL HISTORY: cough, SOB COMPARISON: CT chest 06/06/2023 Unremarkable cardiomediastinal. Lungs clear. No effusion or pneumothorax. XR/XR chest 1V IMPRESSION: Negative acute pleural-parenchymal disease. Impression dictated by: Jemal Serra M.D. 04/02/2025 10:53 PM Dictation Location: [place] [address] Electronically authenticated by: [id number] Date: 04/02/2025 22:53
--- NOTE | 2025-04-02 21:03 | ED_ITS ---
HPI - SOB/Dyspnea General Chief Complaint: Shortness of Breath/Dyspnea Stated Complaint: SOB Time Seen by Provider: 04/02/25 20:57 Source: patient Mode of arrival: walk-in History of Present Illness HPI Narrative: 69 year old female presents to the ED for SOB. She has had cough, sinus congestion/drainage, and SOB for 2-3 days. The SOB became worse today. She has hx COPD and asthma. She has been using her nebulizer without relief. Denies fever, chills, edema, N/V/D. Related Data Home Medications ?Medication ?Instructions ?Recorded ?Confirmed albuterol sulfate 90 mcg/actuation 2 inh inhalation Q4 H PRN 06/05/23 04/02/25 aerosol inhaler bronchospasm lisinopril 10 1 tab PO DAILY 06/05/2303/0625 mg-hydrochlorothiazide 12.5 mg tablet fluticasone fur. 200 mcg-umeclid 1 inh inhalation CESILIA Y 04/02/25 04/02/25 62.5 mcg-vilant 25 mcg inhalat.powder (Trelegy Ellipta) Previous Rx's ?Medication ?Instructions ?Recorded ipratropium 0.5 mg-albuterol 3 mg 3 ml inhalation Q4H PRN 06/07/23 (2.5 mg base)/3 mL nebulization Bronchospasm #180 mL soln levofloxacin 750 mg tablet 750 mg PO DAILY 7 days #7 t abs 06/07/23 Held on 04/02/25. Instructions: Doctor's Order azithromycin 250 mg tablet See Rx Instructions PO .COM PLEX #6 04/02/25 (Zithromax Z-[place]) tabs prednisone 10 mg tablet See Rx Instructions .Route 1 .COMPLEX #30 tabs Allergies Allergy/AdvReac Type Severity Reaction Status Date / Time No Known Drug Allergies Allergy Verified 06/05/23 16:10 Review of Systems ROS Constitutional Reports: fatigue; Denies: fever or chills Ears, nose, mouth, and throat Reports: nasal discharge and nasal congestion; Denies: throat pain, neck pain, ear pain or ear discharge Cardiovascular Denies: chest pain, palpitations, edema, swelling of feet/ankles or lightheadedness Respiratory Reports: shortness of breath, cough and wheezing Gastrointestinal Denies: abdominal pain, nausea, vomiting or diarrhea Musculoskeletal Denies: back pain Neurological Denies: headache or dizziness PFSH PFS Medical History (Updated 04/02/25 @ 22:10 by Raya Stover) COPD exacerbation ?J44.1 - Chronic obstructive pulmonary disease with (acute) exacerbation (ICD-10) Personal history of pulmonary embolism ?Z86.711 - Personal history of pulmonary embolism (ICD-10) Hypertension ?I10 - Essential (primary) hypertension (ICD-10) Prediabetes ?R73.03 - Prediabetes (ICD-10) COPD (chronic obstructive pulmonary disease) ?J44.9 - Chronic obstructive pulmonary disease, unspecified (ICD-10) Asthma with acute exacerbation ?J45.901 - Unspecified asthma with (acute) exacerbation (ICD-10) 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, unspecified ear (ICD-10) Pulmonary embolism ?I26.99 - Other pulmonary embolism without acute cor pulmonale (ICD-10) Surgical History (Updated 06/05/23 @ 21:12 by Ludy Graham RN) H/O tubal ligation ?Z98.51 - Tubal ligation status (ICD-10) History of tonsillectomy ?Z90.89 - Acquired absence of other organs (ICD-10) Family History (Updated 06/05/23 @ 21:13 by Ludy Graham RN) Mother Family history of cancer Father Family history of CHF (congestive heart failure) Family history of hypertension Family history of myocardial infarction Social History (Updated 06/05/23 @ 21:17 by Ludy Graham RN) Within the past year, how often did you have a drink containing alcohol: monthly or less Within the past year, how many standard drinks containing alcohol did you have on a typical day: 1 or 2 Within the past year, how often did you have six or more drinks on one occasion: never Total score: 0 Score interpretation: A score less than 3 is consistent with normal alcohol consumption. 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 Known occupational exposures/hazards: Yes Known occupational exposures/hazards details: silica , dust particles Highest level of school completed/degree received: high school graduate Are you now , , , , never or living with a partner: In a typical week, how many times do you talk on the telephone with family, friends, or neighbors: 3 or more times per week How often do you get together with friends or relatives: once per week How often do you attend gnosticism or cheondoism services: never Do you belong to any clubs or organizations such as gnosticism groups unions, fraternal or athletic groups, or school groups: no Total score: 1 Score interpretation: A score of less than or equal to 1 indicates the most socially isolated. Little interest or pleasure in doing things: several days Feeling down, depressed, or hopeless: several days Feel stressed/tense/nervous/anxious/difficulty sleeping: to some extent Life stressors: recent of family or friend Life stressor details: son Do you think of yourself as: straight/heterosexual Gender Identity: female Exam Constitutional Vital Signs, click to edit/add: Last Vital Signs Temp 97.7 F 04/02/25 20:48 Pulse 87 04/02/25 22:44 Resp 20 04/02/25 22:44 BP 162/87 H 04/02/25 22:44 Pulse Ox 95 04/02/25 22:44 O2 Del Method Room Air 04/02/25 22:44 Common normals: no apparent distress General appearance: cooperative HENMT Common normals: moist oral mucous membranes and oropharynx normal Eye Common normals: conjunctivae normal and no scleral icterus Respiratory Effort & inspection: tachypneic; not able to speak in complete sentences and no stridor Auscultation: wheezes and diminished lung sounds Cardio Common normals: regular rate and regular rhythm Extremity Common normals: no pedal edema Neuro Common normals: oriented x3 and moves all extremities Sensorium/orientation: awake and alert Course Vital Signs Vital signs: Vital Signs Temperature 97.7 F 04/02/25 20:48 Pulse Rate 98 H 04/02/25 20:48 Respiratory Rate 26 H 04/02/25 20:48 Blood Pressure 233/98 H 04/02/25 20:48 Pulse Oximetry 95 04/02/25 20:48 Oxygen Delivery Method Room Air 04/02/25 20:48 Temperature 97.7 F 04/02/25 20:48 Pulse Rate 87 04/02/25 22:44 Respiratory Rate 20 04/02/25 22:44 Blood Pressure 162/87 H 04/02/25 22:44 Pulse Oximetry 95 10/30/25 22:44 Oxygen Delivery Method Room Air 04/02/25 22:44 MDM - SOB/Dyspnea MDM Narrative Medical decision making narrative: Covid-19 and influenza were negative. She was given solumedrol and DuoNeb here in the ED. Medical Records Attestation: I reviewed the patient's medical records. Lab Data Attestation: I reviewed the patient's lab results. Labs: Lab Results 04/02/25 04/02/25 Range/Units 21:05 21:10 WBC 3.7 L (4.0-11.0) 10^3/uL RBC 4.06 L (4.20-5.40) 10^6/uL Hgb 13.9 (12.0-16.0) g/dL Hct 40.5 (36.0-48.0) % MCV 99.8 H (81.0-99.0) fL MCH 34.2 H (26.7-34.0) pg MCHC 34.3 (29.9-35.2) g/dL RDW 12.4 (11.0-15.0) % Plt Count 151 (150-450) 10^3/uL MPV 9.4 L (9.5-13.5) fL Neut % (Auto) 45.7 (43.0-75.0) % Lymph % (Auto) 43.6 (20.5-60.0) % [place] % (Auto) 9.6 (1.7-12.0) % Eos % (Auto) 0.8 L (0.9-7.0) % Baso % (Auto) 0.3 (0.2-2.0) % Neut # (Auto) 1.7 (1.4-6.5) 10^3/uL Lymph # (Auto) 1.6 (1.2-3.8) 10^3/uL [place] # (Auto) 0.4 (0.3-0.8) 10^3/uL Eos # (Auto) 0.0 (0.0-0.7) 10^3/uL Baso # (Auto) 0.0 (0.0-0.1) 10^3/uL Abs Immat Gran (auto) 0.00 (0.00-0.03) 10^3/uL Imm/Tot Granulo (auto) 0.0 (0.0-0.5) % Sodium 141 (136-145) mmol/L Potassium 3.9 (3.5-5.1) mmol/L Chloride 102 (98-107) mmol/L Carbon Dioxide 30.1 (21.0-32.0) mmol/L Anion Gap 12.8 BUN 13.0 (7.0-18.0) mg/dL Creatinine 0.87 (0.55-1.02) mg/dL Est GFR ( Amer) >60 (>=60 mL/min/1.73m^2) Est GFR (Non-Af Amer) >60 (>=60 mL/min/1.73m^2) BUN/Creatinine Ratio 14.9 Glucose 111 H (74-106) mg/dL Calcium 8.8 (8.5-10.1) mg/dL Total Bilirubin 0.3 (0.2-1.0) mg/dL AST 21 (15-37) U/L ALT 22 (14-59) U/L Alkaline Phosphatase 87 (46-116) U/L Troponin I High Sens 7.5 (4.0-51.3) pg/mL NT-Pro-B Natriuret Pep 55.0 (<=900.0) pg/mL Total Protein 6.6 (6.4-8.2) g/dL Albumin 3.5 (3.4-5.0) g/dL Globulin 3.1 g/dL Albumin/Globulin Ratio 1.1 Influenza Type A Ag Negative Influenza Type B Ag Negative SARS-CoV-2 Ag (CV2AG) Negative (NEGATIVE) Imaging Data Chest x-ray: Radiologist's impression: ITS Impressions Chest X-Ray 04/02/25 21:02 IMPRESSION: Negative acute pleural-parenchymal disease. Impression dictated by: Jemal Serra M.D. 04/02/2025 10:53 PM Dictation Location: [place] [address] Electronically authenticated by: [id number] Y Date: 04/02/2025 22:53 ECG Data Attestation: ?I have reviewed the pertinent ECG results. (EKG was reviewed by the attending physician. It showed sinus rhythm at a rate of 90. ) Interpretation: Measurements Intervals [place] Rate: 90 P: 90 NE: 152 QRS: 77 QRSD: 86 T: 78 QT: 346 QTc: 394 Interpretive Statements 1100 Sinus rhythm 0102 ARTIFACT PRESENT 9110 normal ECG No previous ECG available for comparison Discharge Plan Discharge Chief Complaint: Shortness of Breath/Dyspnea Clinical Impression: COPD exacerbation Patient Disposition: Home, Self-Care Time of Disposition Decision: 22:10 Condition: Good Mode of Transportation: Private Vehicle Prescriptions / Home Meds: New azithromycin [Zithromax Z-[place]] 250 mg tablet See Rx Instructions .ROUTE .COMPLEX Qty: 6 0RF Rx Instructions: For 250 mg dose pack: take 500 mg today (day 1), then 250 mg for 4 days (days 2-5) prednisone 10 mg tablet See Rx Instructions .ROUTE .COMPLEX Qty: 30 0RF Rx Instructions: Take 5 tablets on days 1-2, 4 tabs on days 3-4, 3 tabs on days 5-6, 2 tabs on days 7-8, 1 tab on days 9-10. No Action albuterol sulfate 90 mcg/actuation HFA aerosol inhaler 2 inh INHALATION Q4H PRN (Reason: bronchospasm) Rx Instructions: Q4-6 hours prn lisinopril-hydrochlorothiazide 10-12.5 mg tablet 1 tab PO DAILY ipratropium-albuterol 0.5 mg-3 mg(2.5 mg base)/3 mL Solution For Nebulization 3 ml inhalation Q4H PRN (Reason: Bronchospasm) Qty: 180 0RF levofloxacin 750 mg tablet 750 mg PO DAILY 7 Days Qty: 7 0RF Trelegy Ellipta 200-62.5-25 mcg blister with device 1 inh INHALATION DAILY Print Language: B[place] Instructions: COPD (Chronic Obstructive Pulmonary Disease) (ED) Additional Instructions: Return to the ED if condition worsens. Referrals: Piter Duff MD [Primary Care Provider, Family Practice] - 1 week Discharge Date/Time: 04/02/25 22:44
[2025-04-02] MEDS: IPRATROPIUM/ALBUTEROL SULFATE 3 ML AMPUL.NEB IH (21:21)
--- OUTSIDE RECORDS SUMMARY | 2025-04-02 21:22 | XMS_ITS | CCD ---
Author Organization [facility] Care Team Providers Care Hazardous Waste Material Technician Name Role Phone TORRES, DR REAGAN [employer] Unavailable MADIHA, DR PITER Berg [...] Attending Unavailable PITER CLEARY Attending Unavailable MAGUI MURDOCK Attending Unavailable MAGUI MURDOCK Attending Unavailable MAGUI MURDOCK Attending Unavailable PITER CLEARY Attending Unavailable Medications Current Medications MedicationDrug Class(es)DatesSig (Normalized)Sig (Original)[id number] 200 actuat albuterol 0.09 mg/actuat metered dose inhaler (16 sources)beta2-Adrenergic AgonistStart: 75-28-1807Rjyjvozfl Sulfate Active 1 PUFF INHALATION every 6 to 8 hours January 06, 2024 12:00amStart: 15-86-1931bsxl 2 puff(s) by inhalation every four hoursalbuterol HFA 90 mcg/act inhaler Inhale 2 puffs every 4 (four) hours if needed 06/03/2023 ActiveStart: 48-01-9565ocao 2 puff(s) by inhalation every four to six hours as neededAlbuterol Sulfate HFA 108 (90 Base) MCG/ACT 2 puffs as needed Inhalation every 4-6 hours for 14 days May, Activetake 2 puff(s) by inhalation every four hours as neededVentolin HFA 108 (90 Base) MCG/ACT 2 puffs as needed Inhalation every 4 hrs Bskkgf00 hr buPROPion hydrochloride 150 mg extended release oral tablet (6 sources)Aminoketone End: 82-36-9030srsm 1 tablet by mouth once dailybuPROPion XL (Wellbutrin XL) 150 MG 24 hr tablet Take 150 mg by mouth Daily 11/03/2024 Discontinued cholecalciferol 0.05 mg oral capsule (1 source)Vitamin DStart: 78-53-4537nsql 50 ug by mouth once daily Cholecalciferol (Vitamin D3) Active 50 MCG PO Daily January 06, 2024 12:00am dextromethorphan hydrobromide 1.5 mg/ml / pyrilamine maleate 1.5 mg/ml oral solution (1 source)Uncompetitive O-ubxadv-F-aspartate Receptor Antagonist, Sigma-1 AgonistStart: 18-84-9262tuvj 10 mL by mouth every eight hoursCapron DM 7.5-7.5 MG/5ML 10 mL Orally every 8 hours for 5 days May, Activefluticasone propionate 0.05 mg/actuat metered dose nasal spray (2 sources)CorticosteroidStart: 83-52-3301kzqv 2 spray(s) nasal route once daily fluticasone (Flonase) 50 MCG/ACT nasal spray Indications: Seasonal allergic rhinitis due to pollen Administer 2 sprays into each nostril Daily Shake gently. Before first use, prime pump. After use, clean tip and replace cap. 16 g 2 12/30/2024 ActiveFluticasone Furoate-Vilanterol (6 sources)Corticosteroid, beta2-Adrenergic AgonistStart: 98-79-7534Zxdqrnwxtit Furoate-Vilanterol (Breo Ellipta) 200-25 mcg/dose blister with device Active 1 INH INHALATION Daily January 06, 2024 12:00amStart: 03-05-2023 End: 67-20-7170btjg 1 puff(s) by inhalation in the morningBreo Ellipta 200-25 MCG/ACT aerosol powder Inhale 1 puff in the morning and 1 puff before bedtime. 1 06/05/2024 Zwwzfcgbvejv40 actuat formoterol fumarate 0.005 mg/actuat / mometasone furoate 0.2 mg/actuat metered dose inhaler (1 source)Corticosteroid, beta2-Adrenergic Agonisttake 2 puff(s) by inhalation twice dailyDulera 200-5 MCG/ACT 2 puffs Inhalation Twice a day Active hydroCHLOROthiazide 12.5 mg / lisinopril 10 mg oral tablet (16 sources)Thiazide Diuretic, Angiotensin Converting Enzyme InhibitorStart: 44-54-1107bwyq 1 tablet by mouth once dailyLisinopril-Hydrochlorothiazide Active 1 TAB PO Daily January 06, 2024 12:00amStart: 10-16-2023 End: 60-69-6245yjkh 1 tablet by mouth once dailylisinopril-hydroCHLOROthiazide 10-12.5 MG tablet Indications: Benign hypertension Take 1 tablet by mouth Daily 90 tablet 3 11/03/2024 Activeibuprofen 200 mg oral tablet (1 source)Nonsteroidal Anti-inflammatory DrugStart: 50-14-6441hrve 200 mg by mouth every six hoursIbuprofen Active 200 MG PO Every 6 hours January 06, 2024 12:00amlisinopril 20 mg oral tablet (1 source)Angiotensin Converting Enzyme Inhibitortake 1 tablet by mouth every twenty-four hoursLisinopril 20 MG 1 tablet Orally Once a day Activemagnesium oxide 250 mg oral tablet (1 source)Start: 70-46-9079uijp 250 mg by mouth once dailyMagnesium Oxide Active 250 MG PO Daily January 06, 2024 12:00ammethylPREDNISolone 4 mg oral tablet (1 source)CorticosteroidStart: 43-29-6728ytslyhFNCOCUHotwwr 4 MG as directed Orally for May, ActiveMultivitamin (Daily Multi-Vitamin) tablet (1 source)Start: 88-60-1437wgqn 1 tablet by mouth once dailyMultivitamin (Daily Multi-Vitamin) tablet Active 1 TAB PO Daily January 06, 2024 12:00amomeprazole 20 mg delayed release oral tablet (13 sources)Proton Pump Inhibitortake 1 tablet by mouth before mealtime omeprazole OTC (PriLOSEC OTC) 20 MG EC tablet Take 20 mg by mouth in the morning. Take before meals. Do not crush, chew, or split.. Activepolymyxin b 33383 unt/ml / trimethoprim 1 mg/ml ophthalmic solution (1 source)Dihydrofolate Reductase Inhibitor Antibacterial, Polymyxin-class AntibacterialStart: 16-48-4170Egvhyiobf B Sulf-Trimethoprim Active 1 DROPS OPHTHALMIC Every three hours 10 January 06, 2024 12:00am Apply 1 drop in each eye every 3 hours while awake, do not exceed 6 doses in a 24 hr periodpotassium citrate 99 mg oral tablet (1 source)Start: 30-85-9373yiue 99 mg by mouth twice dailyPotassium Citrate Active 99 MG PO Twice daily January 06, 2024 12:00amTrelegy Ellipta 200-62.5-25 MCG/ACT aerosol powder (10 sources)Start: 92-75-3186Oouqrva Ellipta 200-62.5-25 MCG/ACT aerosol powder 1 puff 1 (one) time each day at the same time 01/29/2024 Activetriamcinolone acetonide 5 mg/ml topical cream (14 sources)CorticosteroidStart: 32-81-8463rxcuqcrtvgxtx (Kenalog) 0.5 % cream Indications: Dermatitis Apply topically 3 (three) times a day 30 g 1 12/03/2023 ActiveVitamin B Complex (1 source)Start: 26-46-9937grge 1 tablet by mouth once dailyVitamin B Complex Active 1 TAB PO Daily January 06, 2024 12:00amVitamins A,C,F-Kcby-Rgychr (Preservision Areds) 4,296 mcg-226 mg-90 mg capsule (1 source)Start: 92-53-7131oqzv 1 capsule by mouth onceVitamins A,C,T-Vkwu-Dgfdll (Preservision Areds) 4,296 mcg-226 mg-90 mg capsule Active 1 CAP PO OnceAugust 2023 12:00am Completed/Discontinued Medications MedicationDrug Class(es)DatesSig (Normalized)Sig (Original)Dexamethasone (1 source)CorticosteroidStart: 12-55-6951OEWYVVJUDNTNH May, 1.5 mg nitrofurantoin, macrocrystals 25 mg / nitrofurantoin, monohydrate 75 mg oral capsule (1 source)Nitrofuran AntibacterialStart: 14-89-8675uvhi 1 capsule by mouth every twelve hoursMacrobid 100 MG 1 capsule with food Orally every 12 hrs for 7 day(s) May, Not-Taking/PRNphenazopyridine hydrochloride 200 mg oral tablet (1 source)Start: 98-57-7631obuq 1 tablet by mouth every eight hoursPyridium 200 MG 1 tablet after meals Orally Three times a day for 2 day(s) May, Not-Taking/PRN Problems Active Problems Problem ClassificationProblemDateDocumented DateEpisodic/ChronicAnxiety disorders (16 sources)Generalized anxiety disorder; Translations: [Generalized anxiety disorder]Onset: 961158-39-0153MrmwmhlHjgogt (3 sources)Mild intermittent asthma, uncomplicated; Translations: [Mild intermittent asthma]Onset: 59-28-0655NzlnqbwTscuzgq obstructive pulmonary disease and bronchiectasis (20 sources)Centrilobular emphysema; Translations: [Chronic obstructive lung disease]Onset: 06-22-2021 Resolved: 831933-40-5139QaoowgrXielqghxxp associated with dizziness or vertigo (4 sources)Lightheadedness; Translations: [Dizziness and giddiness]Onset: 151212-67-0180KlskqbfqQlqxrkeze of lipid metabolism (15 sources)Dyslipidemia; Translations: [Hyperlipidemia, unspecified]Onset: 952044-87-0158WcnujerS Codes: Adverse effects of medical drugs (1 source)Adverse effect of glucocorticoids and synthetic analogues, initial encounter; Translations: [ADVRS EFF GLUCOCORT SYN ANALOG INIT]Onset: 06-22-2021 EpisodicEsophageal disorders (16 sources)Gastro-esophageal reflux disease without esophagitis; Translations: [Gastroesophageal reflux disease]Onset: 995115-46-7636TwrxckhZaozkvxpf hypertension (17 sources)Benign hypertension; Translations: [Essential (primary) hypertension]Onset: 835759-45-3417MhvwvjnEnlgxhyruwhi; infection of eye (except that caused by tuberculosis or sexually transmitteddisease) (2 sources)Acute conjunctivitis; Translations: [Unspecified acute conjunctivitis, bilateral]68-94-4471XmqfdykhWiptimu (1 source)Candidal stomatitis; Translations: [CANDIDAL STOMATITIS]Onset: 63-01-8742SroobxkfFzxgv congenital anomalies (1 source)Accessory lobe of lung; Translations: [ACCESSORY LOBE OF LUNG]Onset: 85-38-6981NonhcqeTpamj gastrointestinal disorders (4 sources)Other specified symptoms and signs involving the digestive system and abdomen; Translations: [OTH SPEC SX SIGNS DIGESTV SYS ABD]Onset: 05-16-2021 EpisodicOther nutritional; endocrine; and metabolic disorders (7 sources)Body mass index 30+ - obesity; Translations: [Obesity, unspecified] Onset: 966685-81-6430NplldxnLrgux nutritional; endocrine; and metabolic disorders (8 sources)Obesity caused by energy imbalance; Translations: [Class 1 obesity due to excess calories with serious comorbidity and body mass index (BMI) of 32.0 to 32.9 in adult]Onset: 799763-26-7090EzwrgozZefjz upper respiratory disease (15 sources)Allergic rhinitis due to pollen; Translations: [Allergic rhinitis due to pollen]Onset: 637560-70-1159MfcrmfrYfpakivq; pneumothorax; pulmonary collapse (1 source)Pyothorax without fistula; Translations: [PYOTHORAX WITHOUT FISTULA] Onset: 04-17-0073ZzbxuklbNgzbyxrmumc failure; insufficiency; arrest (adult) (1 source)Acute respiratory failure with hypoxia; Translations: [ACUTE RESPIRATORY FAIL W/HYPOXIA]Onset: 28-02-2285WpnwttptIroodrvxdk (except in labor) (2 sources)Sepsis due to Methicillin susceptible Staphylococcus aureus; Translations: [Severe sepsis without septic shock]Onset: 65-12-3083Mbnnyeuv Substance-related disorders (1 source)Nicotine dependence, cigarettes, uncomplicated; Translations: [NICOTINE DEPEND CIGARETTES UNCOMP]Onset: 72-23-3093TivydsvNzlktmagikve (1 source)CONTACT W/AND (SUSP) EXPOS COVID-19; Translations: [CONTACT W/AND (SUSP) EXPOS COVID-19]Onset: 06-22-2021 Past or Other Problems Problem ClassificationProblemDateDocumented DateEpisodic/ChronicDiabetes mellitus without complication (15 sources)Prediabetes; Translations: [Prediabetes]Onset: 642888-21-4007 EpisodicMood disorders (6 sources)Mood disordersOnset: 175541-14-0632Favic aftercare (2 sources)Patient encounter status; Translations: [Other terminal carman (current) drug therapy]Onset: 635919-60-3694UmzuyremSjwgz aftercare (13 sources)Long-term current use of drug therapy; Translations: [Other correction (current) drug therapy]Onset: 028216-75-4954RpodeqsdRjgmtijfl (except that caused by tuberculosis or sexually transmitted disease) (16 sources)Pneumonia, unspecified organism; Translations: [Pneumonia due to respiratory syncytial virus]Onset: 06-07-2021 Resolved: 57-15-6952QdpdxppgDktfnyur codes; unclassified (15 sources)Edema of lower extremity; Translations: [Localized edema]Onset: 595317-59-1574QnozmshcXkedjvkyweah (1 source)Acute cough R05.1 Results Test NameValueInterpretationReference RangeFacilityALL CBC WITH AUTO DIFFon 81-68-0051CTUCNSAON ABSOLUTE OVBF1MMMD HealthcareBasophils/100 WBC (Bld)0.6 %0.2 - 2.0 %NOMS HealthcareEosinophils/100 WBC (Bld)1.3 %0.9 - 7.0 %[facility] Erythrocyte distribution width (RBC) [Ratio]12.6 %11.0 - 15.0 %[facility] Hematocrit (Bld) [Volume fraction]40.4 %36.0 - 48.0 %NOMSalem Memorial District HospitalHemoglobin (Bld) [Mass/Vol]14.2 g/dL12.0 - 16.0 g/dLNOSaint John's Breech Regional Medical CenterIMMATURE GRANULOCYTES ABS AUTO0.01NOMS HealthcareImmature granulocytes/100 WBC (Bld)0.2 %0.0 - 0.5 % [facility] HospitalInterpretation and review of laboratory resultsAbnormalNOAL HealthcareLYMPHOCYTES ABSOLUTE AUTO1.3NOMS HealthcareLymphocytes/100 WBC (Bld) 27.2 %20.5 - 60.0 %[facility] HospitalMCH (RBC) [Entitic mass]34.5 frYwap05.7 - 34.0 pgNOSaint John's Breech Regional Medical CenterMCHC (RBC) [Mass/Vol]35.1 g/dL29.9 - 35.2 g/dLNOMS Healthcare MCV (RBC) [Entitic vol]98.1 fL81.0 - 99.0 fLNOMS HealthcareMONOCYTES ABSOLUTE AUTO0.3NOMS HealthcareMonocytes/100 WBC (Bld)5.9 %1.7 - 12.0 %[facility] NEUTROPHILS ABSOLUTE AUTO3.1NOMS HealthcareNeutrophils/100 WBC (Bld)64.8 %43.0 - 75.0 %[facility] HealthcarePlatelet mean volume (Bld) [Entitic vol]9.1 fLLow9.5 - 13.5 fLNOMS HealthcareTBH EO #0.1NOMS HealthcareTBH [id number] HealthcareTBH RBC4.12 LowNOMS HealthcareTBH WBC4.8NOMS HealthcareCLINISYNCNMCALESTER REGIONAL [facility] [place] HealthcareCT LUNG SCREENING LOW DOSEon 00-05-8866UfyZelienople, [place] [address] CT Scan Report Signed Patient: MIRANDA GILLILAND MR#: [id number] : 1955 Acct:[id number] Age/Sex: 68 / F ADM Date: 07/04/24 Loc: CT Attending Dr: Oxana New D.O. Ordering Physician: Oxana New D.O. Date of Service: 07/04/24 Procedure(s): CT lung screening low-dose Accession Number(s): [id number] cc: Piter Cleary M.D. [place] [address] Patient Name: MIRANDA GILLILAND MRN: [facility]:[id number] date: 1955 Sex: F Assigned Patient Location: CT Current Patient Location: CT Accession/Order Number: [id number] Exam Date: 07/04/2024 08:42 Report Date: 07/04/2024 [...] months is recommended. Electronically authenticated by: JENNIFER BARBA Date: 07/04/2024 09:09 Dictated By: Jennifer Barba M.D. Signed By: 07/04/24910 DD/ 8 TD/TT: Pacs Administrator:TBHRadiology, Radiologist, - 07/04/[address] [place] [address] CT Scan Report Signed Patient: MIRANDA GILLILAND MR#: [id number] : 1955 Acct:[id number] Age/Sex: 68 / F ADM Date: 07/04/24 Loc: CT Attending Dr: Oxana New D.O. Ordering Physician: Oxana New D.O. Date of Service: 07/04/24 Procedure(s): CT lung screening low-dose Accession Number(s): [id number] cc: Piter Cleary M.D. [address] [address] Patient Name: MIRANDA GILLILAND MRN: [id number] date: 1955 Sex: F Assigned Patient Location: CT Current Patient Location: CT Accession/Order Number: [id number] Exam Date: 07/04/2024 08:42 Report Date: 07/04/2024 [...] months is recommended. Electronically authenticated by: JENNIFER BARBA Date: 07/04/2024 09:09 Dictated By: Jennifer Barba M.D. Signed By: 07/04/24910 DD/ 8 TD/TT: Pacs Administrator: [facility] HealthcareRadiology Study observation (narrative)[facility] HealthcareCT LUNG SCREENING LOW DOSEOrdered By: Radiologist Radiology on 85-63-5225RTHP [employer] Work Phone: cOVID + FLU Quick Testingon 57-47-6451MOYT-CoV-2 (COVID-19) RNA MASON+probe Ql (Unsp spec)NegativeNort [employer] Other COVID + FLU Quick TestingNegativeNokindred hospital [employer] Other [id number]-5-ANTITRYPSIN PHENOTYPINGon 06-14-2021 Dalfu-7-Fqmwkwoyoph, Lroki603 mg/dLCritically eqbi209-635VbcNationwide Children'S Hospital Comment on above:Result Comment: Performed at: CBPerformed By: #### CVDTBH #### [facility] [address] [place] [address] Dr. Jessiac GonzalezPhenotype (PI)MMSt. Mary's Medical CenterComment on above: Result Comment: Phenotype Population A-1-AT Concentration* Incidence % % of [...] Ranges used to confirm phenotype. Performed at: BNPerformed By: #### CVDTBH #### [facility] [address] [place] [address] Dr. Jessica Dowling W MANUAL DIFFon 54-81-7783THNEXUXO LYMPH #NormalNationwide Children'S HospitalComment on above:Performed By: #### CBCMAN #### [facility] [address] [place] [address] Dr. Jessica GonzalezATYPICAL LYMPH %NormalNationwide Children'S HospitalComment on above: Performed By: #### CBCMAN #### [facility] [address] [place] [address] Dr. Jessica Zaidi #1.2 103/ulCritically high0.0-0.3TUniversity Hospitals [facility] Comment on above:Performed By: #### CBCMAN #### [facility] [address] [place] [address] Dr. Jessica Zaidi %6 %Critically high0-5The [facility] HospitalComment on above: Performed By: #### CBCMAN #### [facility] [address] [place] [address] Dr. Jessica Jaime #0.00 103/ulNormal0.00-0.10The [facility] HospitalComment on above:Performed By: #### CBCMAN #### [facility] [address] [place] [address] Dr. Jessica Jaime %0.0 %Critically low0.2-2.0The [facility] HospitalComment on above:Performed By: #### CBCSUE #### [facility] [address] [place] [address] Dr. Jessica Sellers #NormalThe [facility] HospitalComment on above:Performed By: #### JAGRUTI #### [facility] [address] [place] [address] Dr. Jessica GonzalezBLAST %NormalThe [facility] HospitalComment on above:Performed By: #### JAGRUTI #### [facility] [address] [place] [address] Dr. Jessica GonzalezCORRECTED WBCNormal4.0-11.0The [facility] HospitalComment on above: Performed By: #### JAGRUTI #### [facility] [address] [place] [address] Dr. Jessica Chowdhury #0.00 103/ulNormal0.00-0.70The [facility] HospitalComment on above:Performed By: #### JAGRUTI #### [facility] [address] [place] [address] Dr. Jessica Chowdhury%0.0 %Critically low0.9-7.0The [facility] HospitalComment on above:Performed By: #### JAGRUTI #### [facility] [address] [place] [address] Dr. Jessica GonzalezHCT37.7 %Ijxule24.0-48.0The [facility] HospitalComment on above: Performed By: #### JAGRUTI #### [facility] [address] [place] [address] Dr. Jessica GonzalezHGB12.6 g/pmBynhqu96.0-16.0The [facility] HospitalComment on above: Performed By: #### JAGRUTI #### [facility] [address] [place] [address] Dr. Jessica Rodriguez #1.76 103/ulNormal1.20-3.80The [facility] HospitalComment on above:Performed By: #### JAGRUTI #### [facility] [address] [address] [address] Jessica Rodriguez%9.0 %Critically low20.5-60.0The [facility] HospitalComment on above:Performed By: #### CBCSUE #### [facility] [address] [address] [address] Jessica MeadH33.4 pzLoonjw65.7-34.0The [facility] HospitalComment on above: Performed By: #### CBCSUE #### [facility] [address] [address] [address] Jessica MeadHC33.4 g/aiIkawfr17.9-35.2The [facility] HospitalComment on above:Performed By: #### JAGRUTI #### [facility] [address] [address] [address] Jessica MeadV100.0 fLCritically high81.0-99.0The [facility] HospitalComment on above:Performed By: #### CBCSUE #### [facility] [address] [place] [address] Dr. Jessica TellesELOCYTE #NormalThe [facility] HospitalComment on above: Performed By: #### JAGRUTI #### [facility] [address] [place] [address] Dr. Jessica TellesELOCYTE %NormalThe [facility] HospitalComment on above: Performed By: #### JAGRUTI #### [facility] [address] [place] [address] Dr. Jessica Downing#0.98 103/ulCritically high0.30-0.80The [facility] Comment on above:Performed By: #### JAGRUTI #### [facility] [address] [place] [address] Dr. Jessica Downing%5.0 %Normal1.7-12.0The [facility] HospitalComment on above: Performed By: #### CBCSUE #### [facility] [address] [address] [address] Jessica LunaV9.3 fLCritically low9.5-13.5The [facility] HospitalComment on above:Performed By: #### JAGRUTI #### [facility] [address] [address] [address] Jessica Perez #NormalNationwide Children'S HospitalComment on above:Performed By: #### JAGRUTI #### [facility] [address] [address] [address] Jessica De AndaOCYTE %NormalThe [facility] HospitalComment on above:Performed By: #### JAGRUTI #### [facility] [address] [address] [address] Jessica ReyesNoMiddletown HospitalComment on above:Performed By: #### JAGRUTI #### [facility] [address] [place] [address] Dr. Jessica SahuT271 103/zyFnnual264-325Pdj [facility] HospitalComment on above: Performed By: #### JAGRUTI #### [facility] [address] [place] [address] Dr. Jessica DimasC3.77 106/ulCritically low4.20-5.40The [facility] HospitalComment on above:Performed By: #### JAGRUTI #### [facility] [address] [place] [address] Dr. Jessica GonzalezRDW13.6 %Vlvpnx10.0-15.0The [facility] HospitalComment on above: Performed By: #### JAGRUTI #### [facility] [address] [place] [address] Dr. Jessica Raygoza #15.68 103/ulCritically high1.40-6.50The [facility] on above:Performed By: #### JAGRUTI #### [facility] [address] [place] [address] Dr. Jessica Raygoza %80.0 %Critically high43.0-75.0The [facility] HospitalComment on above:Performed By: #### JAGRUTI #### [facility] [address] [place] [address] Dr. Jessica PérezBC19.6 103/ulCritically high4.0-11.0The [facility] HospitalComment on above:Performed By: #### CBCMAN #### [facility] [address] [place] [address] Dr. Jessica GonzalzePROF CHEM 8 (BAS METB)on 07-19-2472Pjeok gap [Moles/Vol]12.0 mmol/LNormalThe [facility] HospitalComment on above:Performed By: #### BMP #### [facility] [address] [place] [address] Dr. Jessica GonzalezCalcium [Mass/Vol]8.7 mg/dLNormal8.4-10.2The [facility] Comment on above:Performed By: #### BMP #### [facility] [address] [place] [address] Dr. Jessica GonzalezChloride [Moles/Vol]103 mmol/BLpbcij09-898Vpb [facility] Comment on above:Performed By: #### BMP #### [facility] [address] [place] [address] Dr. Jessica GonzalezCO2 [Moles/Vol]27.7 mmol/HUedkeo41.0-30.0The [facility] Comment on above:Performed By: #### BMP #### [facility] [address] [place] [address] Dr. Jessica GonzalezCreatinine [Mass/Vol]0.85 mg/dLNormal0.52-1.04The [facility] HospitalComment on above:Performed By: #### BMP #### [facility] [address] [place] [address] Dr. Jessica GaviriaGFR-AF EMIRATI>60Normal>=60The [facility] HospitalComment on above:Performed By: #### BMP #### [facility] [address] [place] [address] Dr. Jessica GaviriaGFR-NON AF EMIRATI>60Normal>=60The [facility] HospitalComment on above:Performed By: #### BMP #### [facility] [address] [place] [address] Dr. Jessica GonzalezGlucose [Mass/Vol]156 mg/dLCritically jdom86-099Pdx [facility] HospitalComment on above:Performed By: #### BMP #### [facility] [address] [place] [address] Dr. Jessica GonzalezPotassium [Moles/Vol]3.7 mmol/LNormal3.4-5.0[facility] Comment on above:Performed By: #### BMP #### [facility] [address] [place] [address] Dr. Jessica Garzadium [Moles/Vol]139 mmol/CXmquzb292-213GclNationwide Children'S Hospital Comment on above:Performed By: #### BMP #### [facility] [address] [place] [address] Dr. Jessica GonzalezUrea nitrogen [Mass/Vol]18.0 mg/dLCritically high7.0-17.0The [facility] HospitalComment on above:Performed By: #### BMP #### [facility] [address] [place] [address] Dr. Jessica Cantu nitrogen/Creatinine [Mass ratio]21.2 mg/mgNormalThSt. Anthony's HospitalComment on above:Performed By: #### BMP #### [facility] [address] [place] [address] Dr. Jessica Dowling W MANUAL DIFFon [id number] LYMPH #NormalNationwide Children'S HospitalComment on above:Performed By: #### CVDTBH #### [facility] [address] [place] [address] Dr. Jessica ChouYPICAL LYMPH %NormalThe [facility] HospitalComment on above: Performed By: #### CVDTBH #### [facility] [address] [place] [address] Dr. Jessica Zaidi #2.0 103/ulCritically high0.0-0.3TUniversity Hospitals [facility] Comment on above:Performed By: #### CVDTBH #### [facility] [address] [place] [address] Dr. Jessica Zaidi %11 %Critically high0-5The [facility] HospitalComment on above:Performed By: #### CVDTBH #### [facility] [address] [place] [address] Dr. Jessica Jaime #0.00 103/ulNormal0.00-0.10The [facility] HospitalComment on above:Performed By: #### CVDTBH #### [facility] [address] [place] [address] Dr. Jsesica Jaime %0.0 %Critically low0.2-2.0The [facility] HospitalComment on above:Performed By: #### CVDTBH #### [facility] [address] [place] [address] Dr. Jessica Sellers #NormalThe [facility] HospitalComment on above:Performed By: #### CVDTBH #### [facility] [address] [place] [address] Dr. Jessica Sellers %NormalThe [facility] HospitalComment on above:Performed By: #### CVDTBH #### [facility] [address] [place] [address] Dr. Jessica GonzalezCORRECTED WBCNormal4.0-11.0The [facility] HospitalComment on above: Performed By: #### CVDTBH #### [facility] [address] [place] [address] Dr. Jessica Chowdhury #0.18 103/ulNormal0.00-0.70The [facility] HospitalComment on above:Performed By: #### CVDTBH #### [facility] [address] [place] [address] Dr. Jessica Chowdhury%1.0 %Normal0.9-7.0The [facility] HospitalComment on above: Performed By: #### CVDTBH #### [facility] [address] [place] [address] Dr. Jessica GonzalezHCT37.5 %Iqbpmg68.0-48.0The [facility] HospitalComment on above: Performed By: #### CVDTBH #### [facility] [address] [place] [address] Dr. Jessica GonzalezHGB12.5 g/bkOdffel73.0-16.0The [facility] HospitalComment on above: Performed By: #### CVDTBH #### [facility] [address] [place] [address] Dr. Jessica Rodriguez #2.00 103/ulNormal1.20-3.80The [facility] HospitalComment on above:Performed By: #### CVDTBH #### [facility] [address] [place] [address] Dr. Jessica Rodriguez%11.0 %Critically low20.5-60.0The [facility] HospitalComment on above:Performed By: #### CVDTBH #### [facility] [address] [place] [address] Dr. Jessica MeadH33.2 heMibkes80.7-34.0The [facility] HospitalComment on above: Performed By: #### NOEMÍTBH #### [facility] [address] [place] [address] Dr. Jessica MeadHC33.3 g/lcQlxnvz38.9-35.2The [facility] HospitalComment on above:Performed By: #### CVDTBH #### [facility] [address] [place] [address] Dr. Jessica MeadV99.7 fLCritically high81.0-99.0The [facility] HospitalComment on above:Performed By: #### NOEMÍTBH #### [facility] [address] [place] [address] Dr. Jessica IbrahimOCYTE #NormalThe [facility] HospitalComment on above: Performed By: #### CVDTBH #### [facility] [address] [place] [address] Dr. Jessica IbrahimOCYTE %NormalThe [facility] HospitalComment on above: Performed By: #### CVDTBH #### [facility] [address] [place] [address] Dr. Jessica Downing#1.46 103/ulCritically high0.30-0.80The [facility] Comment on above:Performed By: #### CVDTBH #### [facility] [address] [address] [address] Jessica Downing%8.0 %Normal1.7-12.0The [facility] HospitalComment on above: Performed By: #### CVDTBH #### [facility] [address] [address] [address] Jessica GonzalezMPV10.2 fLNormal9.5-13.5The [facility] HospitalComment on above: Performed By: #### CVDTBH #### [facility] [address] [place] [address] Dr. Jessica De AndaOCYTE #NormalThe [facility] HospitalComment on above:Performed By: #### CVDTBH #### [facility] [address] [place] [address] Dr. Jessica De AndaOCYTE %NormalThe [facility] HospitalComment on above:Performed By: #### CVDTBH #### [facility] [address] [place] [address] Dr. Jessica GonzalezNRBCNormalThe [facility] HospitalComment on above:Performed By: #### CVDTBH #### [facility] [address] [place] [address] Dr. Jessica SahuT223 103/suNprkpp753-690Qcx [facility] HospitalComment on above: Performed By: #### CVDTBH #### [facility] [address] [place] [address] Dr. Jessica DimasC3.76 106/ulCritically low4.20-5.40The [facility] HospitalComment on above:Performed By: #### CVDTBH #### [facility] [address] [place] [address] Dr. Jessica GonzalezRDW13.8 %Kbkhjb89.0-15.0The [facility] HospitalComment on above: Performed By: #### CVDTBH #### [facility] [address] [place] [address] Dr. Jessica Raygoza #12.56 103/ulCritically high1.40-6.50The [facility] Comment on above:Performed By: #### CVDTBH #### [facility] [address], [place] [address] Dr. Jessica Raygoza %69.0 %Lprhjt77.0-75.0The [facility] HospitalComment on above: Performed By: #### CVDTBH #### [facility] [address] [place], [place] [address] Dr. Jessica GonzalezWBC18.2 103/ulCritically high4.0-11.0The [facility] HospitalComment on above:Performed By: #### CVDTBH #### [facility] [address] [place], [place] [address] Dr. Jessica GonzalezCT CHEST WO CONon [id number] CHEST WO CONEXAMINATION: CT CHEST WO CON HISTORY: SHORTNESS OF [...] Electronically authenticated by: CALI BRITO Date: 2021-06-13 09:23[facility] CenterPROF CHEM 8 (BAS METB)on [id number] gap [Moles/Vol]11.7 mmol/LNormalThe [facility] HospitalComment on above:Performed By: #### CVDTBH #### [facility] [address] [place] [address] Dr. Jessica GonzalezCalcium [Mass/Vol]8.9 mg/dLNormal8.4-10.2The [facility] Comment on above:Performed By: #### CVDTBH #### [facility] [address] [place] [address] Dr. Jessica GonzalezChloride [Moles/Vol]106 mmol/HQrwlfg48-294Kma [facility] Comment on above:Performed By: #### CVDTBH #### [facility] [address] [place] [address] Dr. Jessica GonzalezCO2 [Moles/Vol]26.1 mmol/YKngepx46.0-30.0The [facility] Comment on above:Performed By: #### CVDTBH #### [facility] [address] [place] [address] Dr. Jessica GonzalezCreatinine [Mass/Vol]0.81 mg/dLNormal0.52-1.04The [facility] HospitalComment on above:Performed By: #### CVDTBH #### [facility] [address] [place] [address] Dr. Jessica GaviriaGFR-AF EMIRATI>60Normal>=60The [facility] HospitalComment on above:Performed By: #### CVDTBH #### [facility] [address] [place] [address] Dr. Jessica GaviriaGFR-NON AF EMIRATI>60Normal>=60The [facility] HospitalComment on above:Performed By: #### CVDTBH #### [facility] [address] [place] [address] Dr. Jessica GonzalezGlucose [Mass/Vol]167 mg/dLCritically nusw83-861Kxq [facility] HospitalComment on above:Performed By: #### CVDTBH #### [facility] [address] [place] [address] Dr. Jessica GonzalezPotassium [Moles/Vol]3.8 mmol/LNormal3.4-5.0The [facility] Comment on above:Performed By: #### CVDTBH #### [facility] [address] [place] [address] Dr. Jessica GonzalezSodium [Moles/Vol]140 mmol/JQzrhaj115-917Dqx [facility] Comment on above:Performed By: #### CVDTBH #### [facility] [address] [place] [address] Dr. Jessica Cantu nitrogen [Mass/Vol]19.0 mg/dLCritically high7.0-17.0The [facility] HospitalComment on above:Performed By: #### CVDTBH #### [facility] [address] [place] [address] Dr. Jessica Cantu nitrogen/Creatinine [Mass ratio]23.5 mg/mgSt. Mary's Medical CenterComment on above:Performed By: #### CVDTBH #### [facility] [address] [place] [address] Dr. Jessica GonzalezXR CHEST 2 Von [id number] CHEST 2 VEXAM: XR CHEST 2 V HISTORY: Organized pneumonia [...] Electronically authenticated by: CALI BRITO Date: 2021-06-13 07:00[facility] W MANUAL DIFFon [id number] LYMPH #NormalThe [facility] HospitalComment on above:Performed By: #### CVDTBH #### [facility] [address] [place] [address] Dr. Jessica GonzalezATYPICAL LYMPH %NormalThe [facility] HospitalComment on above: Performed By: #### CVDTBH #### [facility] [address] [place] [address] Dr. Jessica Zaidi #1.3 103/ulCritically high0.0-0.3The [facility] Comment on above:Performed By: #### CVDTBH #### [facility] [address] [place] [address] Dr. Jessica Zaidi %8 %Critically high0-5The [facility] HospitalComment on above: Performed By: #### CVDTBH #### [facility] [address] [place] [address] Dr. Jessica Jaime #0.00 103/ulNormal0.00-0.10The [facility] HospitalComment on above:Performed By: #### CVDTBH #### [facility] [address] [place] [address] Dr. Jessica Jaime %0.0 %Critically low0.2-2.0The [facility] HospitalComment on above:Performed By: #### CVDTBH #### [facility] [address] [place] [address] Dr. Jessica Sellers #NormalThe [facility] HospitalComment on above:Performed By: #### CVDTBH #### [facility] [address] [place] [address] Dr. Jessica Sellers %NormalGalion Community Hospital HospitalComment on above:Performed By: #### CVDTBH #### [facility] [address] [place] [address] Dr. Jessica GonzalezCORRECTED WBCNormal4.0-11.0The [facility] HospitalComment on above: Performed By: #### CVDTBH #### [facility] [address] [place] [address] Dr. Jessica Chowdhury #0.00 103/ulNormal0.00-0.70The [facility] HospitalComment on above:Performed By: #### CVDTBH #### [facility] [address] [place] [address] Dr. Jessica Chowdhury%0.0 %Critically low0.9-7.0The [facility] HospitalComment on above:Performed By: #### CVDTBH #### [facility] [address] [address] [address] Jessica GonzalezHCT35.4 %Critically low36.0-48.0The [facility] HospitalComment on above:Performed By: #### CVDTBH #### [facility] [address] [address] [address] Jessica GonzalezHGB11.9 g/dlCritically low12.0-16.0The [facility] HospitalComment on above:Performed By: #### CVDTBH #### [facility] [address] [address] [address] Jessica Rodriguez #0.63 103/ulCritically low1.20-3.80The [facility] Comment on above:Performed By: #### CVDTBH #### [facility] [address] [address] [address] Jessica Rodriguez%4.0 %Critically low20.5-60.0The [facility] HospitalComment on above:Performed By: #### CVDTBH #### [facility] [address] [address] [address] Jessica MeadH33.3 whZxaxbj51.7-34.0The [facility] HospitalComment on above: Performed By: #### CVDTBH #### [facility] [address] [address] [address] Jessica MeadHC33.6 g/cdCsnonx34.9-35.2The [facility] HospitalComment on above:Performed By: #### CVDTBH #### [facility] [address] [address] [address] Jessica MeadV99.2 fLCritically high81.0-99.0The [facility] HospitalComment on above:Performed By: #### CVDTBH #### [facility] [address] [place] [address] Dr. Jessica NarvaezDECATUR MORGAN HOSPITAL-PARKWAY CAMPUSELOCYTE #NormalThe [facility] HospitalComment on above: Performed By: #### CVDTBH #### [facility] [address] [place] [address] Dr. Jessica NarvaezAMYELOCYTE %NormalNationwide Children'S HospitalComment on above: Performed By: #### CVDTBH #### [facility] [address] [place] [address] Dr. Jessica Downing#0.79 103/ulNormal0.30-0.80The [facility] HospitalComment on above:Performed By: #### CVDTBH #### [facility] [address] [place] [address] Dr. Jessica Downing%5.0 %Normal1.7-12.0The [facility] HospitalComment on above: Performed By: #### CVDTBH #### [facility] [address] [place] [address] Dr. Jessica GonzalezMPV9.4 fLCritically low9.5-13.5The [facility] HospitalComment on above:Performed By: #### CVDTBH #### [facility] [address] [place] [address] Dr. Jessica De AndaOCYTE #NormalThe [facility] HospitalComment on above:Performed By: #### CVDTBH #### [facility] [address] [place] [address] Dr. Jessica De AndaOCYTE %NormalThe [facility] HospitalComment on above:Performed By: #### CVDTBH #### [facility] [address] [place] [address] Dr. Jessica GonzalezNRBCNormalThe [facility] HospitalComment on above:Performed By: #### CVDTBH #### [facility] [address] [place] [address] Dr. Jessica GonzalezPLT241 103/gyWsjrvb305-853Gzm Mobile HospitalComment on above: Performed By: #### CVDTBH #### [facility] [address] [place] [address] Dr. Jessica GonzalezRBC3.57 106/ulCritically low4.20-5.40The [facility] HospitalComment on above:Performed By: #### CVDTBH #### [facility] [address] [address] [address] Jessica GonzalezRDW13.5 %Hnnwnx90.0-15.0The [facility] HospitalComment on above: Performed By: #### CVDTBH #### [facility] [address] [place] [address] Dr. Jessica Raygoza #13.11 103/ulCritically high1.40-6.50The [facility] Comment on above:Performed By: #### CVDTBH #### [facility] [address] [place] [address] Dr. Jessica Raygoza %83.0 %Critically high43.0-75.0The [facility] HospitalComment on above:Performed By: #### CVDTBH #### [facility] [address] [place] [address] Dr. Jessica GonzalezWBC15.8 103/ulCritically high4.0-11.0The [facility] HospitalComment on above:Performed By: #### CVDTBH #### [facility] [address] [place] [address] Dr. Jessica GonzalezPROF CHEM 8 (BAS METB)on [id number] gap [Moles/Vol]12.6 mmol/LNormalNationwide Children'S HospitalComment on above:Performed By: #### BMP #### [facility] [address] [place] [address] Dr. Jessica GonzalezCalcium [Mass/Vol]8.9 mg/dLNormal8.4-10.2[facility] Comment on above:Performed By: #### BMP #### [facility] [address] [place] [address] Dr. Jessica GonzalezChloride [Moles/Vol]106 mmol/QJtluut91-616Fne [facility] Comment on above:Performed By: #### BMP #### [facility] [address] [place] [address] Dr. Jessica GonzalezCO2 [Moles/Vol]26.0 mmol/PZgggpf81.0-30.0The [facility] Comment on above:Performed By: #### BMP #### [facility] [address] [address] [address] Jessica GonzalezCreatinine [Mass/Vol]0.72 mg/dLNormal0.52-1.04The [facility] HospitalComment on above:Performed By: #### BMP #### [facility] [address] [address] [address] Lopez ChangEGFR-AF EMIRATI>60Normal>=60The [facility] HospitalComment on above:Performed By: #### BMP #### [facility] [address] [address] [address] Jessica GaviriaGFR-NON AF EMIRATI>60Normal>=60The [facility] HospitalComment on above:Performed By: #### BMP #### [facility] [address] [address] [address] Jessica GonzalezGlucose [Mass/Vol]132 mg/dLCritically nsqi03-257Yyp [facility] HospitalComment on above:Performed By: #### BMP #### [facility] [address] [address] [address] Jessica GonzalezPotassium [Moles/Vol]3.6 mmol/LNormal3.4-5.0The [facility] Comment on above:Performed By: #### BMP #### [facility] [address] [place] [address] Dr. Jessica GonzalezSodium [Moles/Vol]141 mmol/KUwsgxc141-469Nvj [facility] Comment on above:Performed By: #### BMP #### [facility] [address] [address] [address] Jessica GonzalezUrea nitrogen [Mass/Vol]21.0 mg/dLCritically high7.0-17.0The [facility] HospitalComment on above:Performed By: #### BMP #### [facility] [address] [address] [address] Jessica GonzalezUrea nitrogen/Creatinine [Mass ratio]29.2 mg/mgNormalThe [facility] HospitalComment on above:Performed By: #### BMP #### [facility] [address] [place] [address] Dr. Jessica Dowling AUTO DIFFon [id number] #0.0 103/ulNormal0.0-0.1The [facility] HospitalComment on above:Performed By: #### CVDTBH #### [facility] [address] [place] [address] Dr. Jessica GonzalezBasophils/100 WBC (Bld)0.1 %Critically low0.2-2.0The [facility] HospitalComment on above:Performed By: #### CVDTBH #### [facility] [address] [place] [address] Dr. Jessica Golden #0.0 103/ulNormal0.0-0.7The [facility] HospitalComment on above: Performed By: #### CVDTBH #### [facility] [address] [place] [address] Dr. Jessica Gaviriaosinophils/100 WBC (Bld)0.1 %Critically low0.9-7.0The [facility] HospitalComment on above:Performed By: #### CVDTBH #### [facility] [address] [place] [address] Dr. Jessica Gaviriarythrocyte distribution width (RBC) [Ratio]13.2 %Sceilu15.0-15.[address] [facility] HospitalComment on above:Performed By: #### CVDTBH #### [facility] [address] [place] [address] Dr. Jessica GonzaelzHematocrit (Bld) [Volume fraction]36.3 %Oukjyo46.0-48.0Nationwide Children'S HospitalComment on above:Performed By: #### CVDTBH #### [facility] [address] [place] [address] Dr. Jessica GonzalezHemoglobin (Bld) [Mass/Vol]12.1 g/fNGsjxxw09.0-16.0N[facility] Children'S HospitalComment on above:Performed By: #### CVDTBH #### [facility] [address] [place] [address] Dr. Yilan ChangIG #1.99 10e3/ulCritically high0.00-0.03[facility] Comment on above:Performed By: #### CVDTBH #### [facility] [address] [place] [address] Dr. Jessica Davidson %11.1 %Critically high0.0-0.5The [facility] HospitalComment on above:Performed By: #### CVDTBH #### [facility] [address] [place] [address] Dr. Jessica Bonds #1.1 103/ulCritically low1.2-3.8The [facility] Comment on above:Performed By: #### CVDTBH #### [facility] [address] [place] [address] Dr. Jessica Galvanhocytes/100 WBC (Bld)6.1 %Critically low20.5-60.0The [facility] HospitalComment on above:Performed By: #### CVDTBH #### [facility] [address] [place] [address] Dr. Jessica ValenciaUAL DIFF REQNONormalThe [facility] HospitalComment on above: Performed By: #### CVDTBH #### [facility] [address] [place] [address] Dr. Jessica Mead (RBC) [Entitic mass]33.0 efCzsqql91.7-34.0The [facility] HospitalComment on above:Performed By: #### CVDTBH #### [facility] [address] [place] [address] Dr. Jessica Mead (RBC) [Mass/Vol]33.3 g/yZWpvdsy85.9-35.2The [facility] HospitalComment on above:Performed By: #### CVDTBH #### [facility] [address] [place] [address] Dr. Jessica Mead (RBC) [Entitic vol]98.9 jOFiwdba92.0-99.0The [facility] HospitalComment on above:Performed By: #### CVDTBH #### [facility] [address] [place] [address] Dr. Jessica Manriquez #0.5 103/ulNormal0.3-0.8The [facility] HospitalComment on above:Performed By: #### CVDTBH #### [facility] [address] [place] [address] Dr. Jessica Eastocytes/100 WBC (Bld)2.8 %Normal1.7-12.0[facility] Comment on above:Performed By: #### CVDTBH #### [facility] [address] [place] [address] Dr. Jessica Martin #14.3 103/ulCritically high1.4-6.5The [facility] Comment on above:Performed By: #### CVDTBH #### [facility] [address] [place] [address] Dr. Jessica Valdezutrophils/100 WBC (Bld)79.8 %Critically high43.0-75.0The [facility] HospitalComment on above:Performed By: #### CVDTBH #### [facility] [address] [place] [address] Dr. Jessica Quezada mean volume (Bld) [Entitic vol]9.6 fLNormal9.5-13.5The [facility] HospitalComment on above:Performed By: #### CVDTBH #### [facility] [address] [place] [address] Dr. Jessica GonzalezPLT237 103/eoMaqhvh111-564Tin [facility] HospitalComment on above: Performed By: #### CVDTBH #### [facility] [address] [place] [address] Dr. Jessica GonzalezRBC3.67 106/ulCritically low4.20-5.40The [facility] HospitalComment on above:Performed By: #### CVDTBH #### [facility] [address] [place] [address] Dr. Jessica GonzalezWBC18.0 103/ulCritically high4.0-11.0The [facility] HospitalComment on above:Performed By: #### CVDTBH #### [facility] [address] [place] [address] Dr. Jessica Proctor SPUTUMon [id number] SPUTUMCulture Observations: Normal respiratory eugenio also seen. Isolate [...] >=8 R F Clindamycin <=0.25 S F Quinupristin/Dalfopristin <=0.25 S F Linezolid 1 S F Vancomycin <=0.5 S F Tetracycline <=1 S F Rifampicin <=0.5 S F Trimethoprim/Sulfamethoxazole <=10 S F Oxacillin <=0.[address] [facility] HospitalComment on above:Performed By: #### BMP #### [facility] [address] [place] [address] Dr. Jessica GonzalezPROF CHEM 8 (BAS METB)on [id number] gap [Moles/Vol]12.5 mmol/LNormalNationwide Children'S HospitalComment on above:Performed By: #### BMP #### [facility] [address] [place] [address] Dr. Jessica GonzalezCalcium [Mass/Vol]9.2 mg/dLNormal8.4-10.2[facility] Comment on above:Performed By: #### BMP #### [facility] [address] [place] [address] Dr. Jessica GonzalezChloride [Moles/Vol]107 mmol/LToxafw10-169YmxNationwide Children'S Hospital Comment on above:Performed By: #### BMP #### [facility] [address] [place] [address] Dr. Jessica GonzalezCO2 [Moles/Vol]25.3 mmol/NIyaugg27.0-30.0[facility] Comment on above:Performed By: #### BMP #### [facility] [address] [place], [place] [id number] Dr. Jessica GonzalezCreatinine [Mass/Vol]0.77 mg/dLNormal0.52-1.04The [facility] HospitalComment on above:Performed By: #### BMP #### [facility] [address] [place] [address] Dr. Jessica GaviriaGFR-AF EMIRATI>60Normal>=60The [facility] HospitalComment on above:Performed By: #### BMP #### [facility] [address] [place] [address] Dr. Jessica GaviriaGFR-NON AF EMIRATI>60Normal>=60The [facility] HospitalComment on above:Performed By: #### BMP #### [facility] [address] [place] [address] Dr. Jessica GonzalezGlucose [Mass/Vol]163 mg/dLCritically rvsr02-201Wvu [facility] HospitalComment on above:Performed By: #### BMP #### [facility] [address] [place] [address] Dr. Jessica GonzalezPotassium [Moles/Vol]3.8 mmol/LNormal3.4-5.0The [facility] Comment on above:Performed By: #### BMP #### [facility] [address] [place] [address] Dr. Jessica GonzalezSodium [Moles/Vol]141 mmol/IJvlekf081-136Xyi [facility] Comment on above:Performed By: #### BMP #### [facility] [address] [place] [address] Dr. Jessica GonzalezUrea nitrogen [Mass/Vol]19.0 mg/dLCritically high7.0-17.0The [facility] HospitalComment on above:Performed By: #### BMP #### [facility] [address] [place] [address] Dr. Jessica Cantu nitrogen/Creatinine [Mass ratio]24.7 mg/mgNormalThe [facility] HospitalComment on above:Performed By: #### BMP #### [facility] [address] [place] [address] Dr. Jessica GonzalezVANCOMYCIN TROUGHon [id number] TROUGH9.1 ug/mlNormal 5.0-20.0The [facility] HospitalComment on above:Performed By: #### VANCT #### [facility] [address] [address] [address] Jessica Dowling W MANUAL DIFFon [id number] LYMPH #NormalThe Mobile HospitalComment on above:Performed By: #### BMP #### [facility] [address] [address] [address] Jessica ChouYPICAL LYMPH %NormalGalion Community Hospital HospitalComment on above: Performed By: #### BMP #### [facility] [address] [place] [address] Dr. Jessica Zaidi #1.2 103/ulCritically high0.0-0.3The [facility] Comment on above:Performed By: #### BMP #### [facility] [address] [place] [address] Dr. Jessica Zaidi %6 %Critically high0-5The [facility] HospitalComment on above: Performed By: #### BMP #### [facility] [address] [place] [address] Dr. Jessica Jaime #0.00 103/ulNormal0.00-0.10The [facility] HospitalComment on above:Performed By: #### BMP #### [facility] [address] [address] [address] Jessica Jaime %0.0 %Critically low0.2-2.0The [facility] HospitalComment on above:Performed By: #### BMP #### [facility] [address] [address] [address] Jessica Sellers #NormalGalion Community Hospital HospitalComment on above:Performed By: #### BMP #### [facility] [address] [place] [address] Dr. Jessica Sellers %NormalGalion Community Hospital HospitalComment on above:Performed By: #### BMP #### [facility] [address] [place] [address] Dr. Jessica MejiaRRECTED WBCNormal4.0-11.0The [facility] HospitalComment on above: Performed By: #### BMP #### [facility] [address] [place] [address] Dr. Jessica Chowdhury #0.00 103/ulNormal0.00-0.70The [facility] HospitalComment on above:Performed By: #### BMP #### [facility] [address] [place] [address] Dr. Jessica Chowdhury%0.0 %Critically low0.9-7.0The [facility] HospitalComment on above:Performed By: #### BMP #### [facility] [address] [place] [address] Dr. Jessica GuajardoT34.2 %Critically low36.0-48.0The [facility] HospitalComment on above:Performed By: #### BMP #### [facility] [address] [place] [address] Dr. Jessica GonzalezHGB11.6 g/dlCritically low12.0-16.0The [facility] HospitalComment on above:Performed By: #### BMP #### [facility] [address] [place] [address] Dr. Jessica Rodriguez #0.60 103/ulCritically low1.20-3.80The [facility] Comment on above:Performed By: #### BMP #### [facility] [address] [place] [address] Dr. Jessica Rodriguez%3.0 %Critically low20.5-60.0The [facility] HospitalComment on above:Performed By: #### BMP #### [facility] [address] [place] [address] Dr. Jessica MeadH33.5 xiQahvbg15.7-34.0The [facility] HospitalComment on above: Performed By: #### BMP #### [facility] [address] [place] [address] Dr. Jessica MeadHC33.9 g/pkWjkuaa46.9-35.2The [facility] HospitalComment on above:Performed By: #### BMP #### [facility] [address] [address] [address] Jessica MeadV98.8 iULnurct79.0-99.0The [facility] HospitalComment on above: Performed By: #### BMP #### [facility] [address] [address] [address] Jessica IbrahimOCYTE #0.2 103/ulNoMiddletown HospitalComment on above:Performed By: #### BMP #### [facility] [address] [place] [address] Dr. Jessica IbrahimOCYTE %1 %NormalNationwide Children'S HospitalComment on above: Performed By: #### BMP #### [facility] [address] [place] [address] Dr. Jessica Downing#0.60 103/ulNormal0.30-0.80The [facility] HospitalComment on above:Performed By: #### BMP #### [facility] [address] [place] [address] Dr. Jessica Downing%3.0 %Normal1.7-12.0[facility]S HospitalComwalter p. [facility] on above: Performed By: #### BMP #### [facility] [address] [place] [address] Dr. Jessica Palomino9.7 fLNormal9.5-13.5The [facility] HospitalComment on above: Performed By: #### BMP #### [facility] [address] [place] [address] Dr. Jessica Perez #NormalNationwide Children'S HospitalComwalter p. reuther psychiatric hospital on above:Performed By: #### BMP #### [facility] [address] [place] [address] Dr. Jessica Perez %NormalNationwide Children'S HospitalComment on above:Performed By: #### BMP #### [facility] [address] [place] [address] Dr. Jessica GonzalezNRPATTIENormalThe Nima HospitalComment on above:Performed By: #### BMP #### [facility] [address] [address] [address] Jessica GonzalezPLT233 103/qoQfhklp450-963Hjc [facility] HospitalComment on above: Performed By: #### BMP #### [facility] [address] [address] [address] Jessica GonzalezRBC3.46 106/ulCritically low4.20-5.40The [facility] HospitalComment on above:Performed By: #### BMP #### [facility] [address] [place] [address] Dr. Jessica GonzalezRDW13.1 %Bsjmdo84.0-15.0The [facility] HospitalComment on above: Performed By: #### BMP #### [facility] [address] [place] [address] Dr. Jessica Raygoza #17.31 103/ulCritically high1.40-6.50The [facility] Comment on above:Performed By: #### BMP #### [facility] [address] [place] [address] Dr. Jessica Raygoza %87.0 %Critically high43.0-75.0The [facility] HospitalComment on above:Performed By: #### BMP #### [facility] [address] [place] [address] Dr. Jessica GonzalezWBC19.9 103/ulCritically high4.0-11.0The [facility] HospitalComment on above:Performed By: #### BMP #### [facility] [address] [place] [address] Dr. Jessica GonzalezPROF CHEM 8 (BAS METB)on 21-97-6271Xmfsd gap [Moles/Vol]11.7 mmol/LNormalThe [facility] HospitalComment on above:Performed By: #### CVDTBH #### [facility] [address] [place] [address] Dr. Jessica GonzalezCalcium [Mass/Vol]9.5 mg/dLNormal8.4-10.2The [facility] Comment on above:Performed By: #### CVDTBH #### [facility] [address] [address] [address] Jessica GonzalezChloride [Moles/Vol]104 mmol/KGbzagt15-729Xsk [facility] Comment on above:Performed By: #### CVDTBH #### [facility] [address] [address] [address] Jessica GonzalezCO2 [Moles/Vol]27.0 mmol/NPkjbsr54.0-30.0The [facility] Comment on above:Performed By: #### CVDTBH #### [facility] [address] [address] [address] Jessica GonzalezCreatinine [Mass/Vol]0.69 mg/dLNormal0.52-1.04The [facility] HospitalComment on above:Performed By: #### CVDTBH #### [facility] [address] [address] [address] Jessica GaviriaGFR-AF EMIRATI>60Normal>=60The [facility] HospitalComment on above:Performed By: #### CVDTBH #### [facility] [address] [address] [address] Jessica GaviriaGFR-NON AF EMIRATI>60Normal>=60The [facility] HospitalComment on above:Performed By: #### CVDTBH #### [facility] [address] [address] [address] Jessica GonzalezGlucose [Mass/Vol]163 mg/dLCritically cfhc58-537Epx [facility] HospitalComment on above:Performed By: #### CVDTBH #### [facility] [address] [address] [address] Jessica GonzalezPotassium [Moles/Vol]3.7 mmol/LNormal3.4-5.0The [facility] Comment on above:Performed By: #### CVDTBH #### [facility] [address] [address] [address] Jessica GonzalezSodium [Moles/Vol]139 mmol/OBkesfk322-826Gcz [facility] Comment on above:Performed By: #### CVDTBH #### [facility] [address] [address] [address] Jessica GonzalezUrea nitrogen [Mass/Vol]20.0 mg/dLCritically high7.0-17.0The [facility] HospitalComment on above:Performed By: #### CVDTBH #### [facility] [address] [place] [address] Dr. Jessica GonzalezUrea nitrogen/Creatinine [Mass ratio]29.0 mg/mgNormMartin Memorial HospitalComment on above:Performed By: #### CVDTBH #### [facility] [address] [place] [address] Dr. Jessica GonzalezXR CHEST 2 Von [id number] CHEST 2 VEXAM: XR CHEST 2 V HISTORY: SHORTNESS OF [...] Electronically authenticated by: CALI BRITO Date: 2021-06-10 07:02[facility] AUTO DIFFon [id number] #0.1 103/ulNormal0.0-0.1The [facility] HospitalComment on above:Performed By: #### CBC #### [facility] [address] [place] [address] Dr. Jessica GonzalezBasophils/100 WBC (Bld)0.4 %Normal0.2-2.0The [facility] Comment on above:Performed By: #### CBC #### [facility] [address] [place] [address] Dr. Jessica Golden #0.0 103/ulNormal0.0-0.7The [facility] HospitalComment on above: Performed By: #### CBC #### [facility] [address] [place], [place] [address] Dr. Jessica Gaviriaosinophils/100 WBC (Bld)0.0 %Critically low0.9-7.0The [facility] HospitalComment on above:Performed By: #### CBC #### [facility] [address] [place] [address] Dr. Jessica Gaviriarythrocyte distribution width (RBC) [Ratio]12.8 %Woagub67.0-15.[address] [facility] HospitalComment on above:Performed By: #### CBC #### [facility] [address] [place] [address] Dr. Jessica GonzalezHematocrit (Bld) [Volume fraction]37.2 %Cuvcmn47.0-48.0The [facility] HospitalComment on above:Performed By: #### CBC #### [facility] [address] [place] [address] Dr. Jessica GonzalezHemoglobin (Bld) [Mass/Vol]12.6 g/kBQshgxm01.0-16.0The [facility] HospitalComment on above:Performed By: #### CBC #### [facility] [address] [place] [address] Dr. Jessica Davidson #0.22 10e3/ulCritically high0.00-0.03[facility] Comment on above:Performed By: #### CBC #### [facility] [address] [place] [address] Dr. Jessica Davidson %1.2 %Critically high0.0-0.5The [facility] HospitalComment on above:Performed By: #### CBC #### [facility] [address] [place] [address] Dr. Jessica PateMPH #0.8 103/ulCritically low1.2-3.8The [facility] Comment on above:Performed By: #### CBC #### [facility] [address] [place] [address] Dr. Jessica Patemphocytes/100 WBC (Bld)4.2 %Critically low20.5-60.0The [facility] HospitalComment on above:Performed By: #### CBC #### [facility] [address] [place] [address] Dr. Jessica Esapña DIFF REQNONormalThe [facility] HospitalComment on above: Performed By: #### CBC #### [facility] [address] [place] [address] Dr. Jessica Mead (RBC) [Entitic mass]33.4 zfInbthj25.7-34.0The [facility] HospitalComment on above:Performed By: #### CBC #### [facility] [address] [place] [address] Dr. Jessica Mead (RBC) [Mass/Vol]33.9 g/gGDgvxho26.9-35.2The [facility] HospitalComment on above:Performed By: #### CBC #### [facility] [address] [place] [address] Dr. Jessica Mead (RBC) [Entitic vol]98.7 rQKouwsg28.0-99.0[facility] HospitalComment on above:Performed By: #### CBC #### [facility] [address] [place] [address] Dr. Jessica Manriquez #0.4 103/ulNormal0.3-0.8The [facility] on above:Performed By: #### CBC #### [facility] [address] [place] [address] Dr. Jessica Eastocytes/100 WBC (Bld)2.3 %Normal1.7-12.0[facility] Comment on above:Performed By: #### CBC #### [facility] [address] [place] [address] Dr. Jessica Martin #17.0 103/ulCritically high1.4-6.5The [facility] Comment on above:Performed By: #### CBC #### [facility] [address] [place] [address] Dr. Jessica Valdezutrophils/100 WBC (Bld)91.9 %Critically high43.0-75.0The [facility] HospitalComment on above:Performed By: #### CBC #### [facility] [address] [address] [address] Jessica GonzalezPlatelet mean volume (Bld) [Entitic vol]9.9 fLNormal9.5-13.5The [facility] HospitalComment on above:Performed By: #### CBC #### [facility] [address] [address] [address] Jessica GonzalezPLT247 103/nhZjnpuc347-582Pzr [facility] HospitalComment on above: Performed By: #### CBC #### [facility] [address] [place] [address] Dr. Jessica GonzalezRBC3.77 106/ulCritically low4.20-5.40The [facility] HospitalComment on above:Performed By: #### CBC #### [facility] [address] [place] [address] Dr. Jessica GonzalezWBC18.5 103/ulCritically high4.0-11.0The [facility] HospitalComment on above:Performed By: #### CBC #### [facility] [address] [place] [address] Dr. Jessica GonzalezPROF CHEM 8 (BAS METB)on 97-73-1938Lefkg gap [Moles/Vol]15.3 mmol/LNormalThe [facility] HospitalComment on above:Performed By: #### CVDTBH #### [facility] [address] [place] [address] Dr. Jessica GonzalezCalcium [Mass/Vol]9.8 mg/dLNormal8.4-10.2The [facility] Comment on above:Performed By: #### CVDTBH #### [facility] [address] [place] [address] Dr. Jessica GonzalezChloride [Moles/Vol]102 mmol/XYvqbmx85-805Uml [facility] Comment on above:Performed By: #### CVDTBH #### [facility] [address] [place] [address] Dr. Jessica GonzalezCO2 [Moles/Vol]24.1 mmol/OUjkwea02.0-30.0[facility] Comment on above:Performed By: #### CVDTBH #### [facility] [address] [address] [address] Jessica GonzalezCreatinine [Mass/Vol]0.83 mg/dLNormal0.52-1.04The [facility] HospitalComment on above:Performed By: #### CVDTBH #### [facility] [address] [address] [address] Jessica GaviriaGFR-AF EMIRATI>60Normal>=60The [facility] HospitalComment on above:Performed By: #### CVDTBH #### [facility] [address] [place] [address] Dr. Jessica GaviriaGFR-NON AF EMIRATI>60Normal>=60The [facility] HospitalComment on above:Performed By: #### CVDTBH #### [facility] [address] [place] [address] Dr. Jessica GonzalezGlucose [Mass/Vol]165 mg/dLCritically jsmt66-944Vri [facility] HospitalComment on above:Performed By: #### CVDTBH #### [facility] [address] [place] [address] Dr. Jessica GonzalezPotassium [Moles/Vol]3.4 mmol/LNormal3.4-5.0[facility] Comment on above:Performed By: #### CVDTBH #### [facility] [address] [address] [address] Jessica GonzalezSodium [Moles/Vol]138 mmol/BJxmwyz128-852Jye [facility] Comment on above:Performed By: #### CVDTBH #### [facility] [address] [address] [address] Jessica GonzalezUrea nitrogen [Mass/Vol]21.0 mg/dLCritically high7.0-17.0The [facility] HospitalComment on above:Performed By: #### CVDTBH #### [facility] [address] [place] [address] Dr. Jessica GonzalezUrea nitrogen/Creatinine [Mass ratio]25.3 mg/mgNormalThe [facility] HospitalComment on above:Performed By: #### CVDTBH #### [facility] [address] [place] [address] Dr. Jessica GonzalezRESPIRATORY PANEL PLUSon [id number] detectedNormal NOT DETECTEDThe [facility] HospitalComment on above:Performed By: #### SPUTGS #### [facility] [address] [place] [address] Dr. Jessica Penn ParapertusisNot detectedNormalNOT DETECTEDThe [facility] HospitalComment on above:Performed By: #### SPUTGS #### [facility] [address] [place] [address] Dr. Jessica Penn PertussisNot detectedNormalNOT DETECTEDThe [facility] on above:Performed By: #### SPUTGS #### [facility] [address] [place] [address] Dr. Jessica GonzalezChlamydia PneumoniaeNot detectedNormalNOT DETECTEDThe [facility] HospitalComment on above:Performed By: #### SPUTGS #### [facility] [address] [place] [address] Dr. Jessica GonzalezCoronavirus 229ENot detectedNormalNOT DETECTEDThe [facility] HospitalComwalter p. [facility] on above:Performed By: #### SPUTGS #### [facility] [address] [place] [address] Dr. Jessica GonzalezCoronavirus VGE9Tec detectedNormalNOT DETECTEDThe [facility] HospitalComment on above:Performed By: #### SPUTGS #### [facility] [address] [place] [address] Dr. Jessica GonzalezCoronavirus AN91Gxj detectedNormalNOT DETECTEDThe [facility] HospitalComment on above:Performed By: #### SPUTGS #### [facility] [address] [place] [address] Dr. Jessica GonzalezCoronavirus GC96Dgr detectedNormalNOT DETECTEDThe [facility] HospitalComment on above:Performed By: #### SPUTGS #### [facility] [address] [place] [address] Dr. Jessica Berg H1 2009Not detectedNormalNOT DETECTEDThe [facility] HospitalComment on above:Performed By: #### SPUTGS #### [facility] [address] [address] [address] Jessica Berg H3Not detectedNormalNOT DETECTEDThe [facility] Comment on above:Performed By: #### SPUTGS #### [facility] [address] [address] [address] Jessica Powell BNot detectedNormalNOT DETECTEDThe [facility] Comment on above:Performed By: #### SPUTGS #### [facility] [address] [address] [address] Jessica CarrilloneumovirusNot detectedNormalNOT DETECTEDThe [facility] HospitalComwalter p[facility] on above:Performed By: #### SPUTGS #### [facility] [address] [address] [address] Jessica Garcia. PneumoniaeNot detectedNormalNOT DETECTEDThe [facility] HospitalComwalter p[facility] on above:Performed By: #### SPUTGS #### [facility] [address] [address] [address] Jessica Renteria 1Not detectedNormalNOT DETECTEDThe [facility] HospitalComwalter p[facility] on above:Performed By: #### SPUTGS #### [facility] [address] [address] [address] Jessica Renteria 2Not detectedNormalNOT DETECTEDThe [facility] HospitalComwalter p[facility] on above:Performed By: #### SPUTGS #### [facility] [address] [address] [address] Jessica Renteria 3Not detectedNormalNOT DETECTEDThe [facility] HospitalComwalter p[facility] on above:Performed By: #### SPUTGS #### [facility] [address] [address] [address] Jessica Renteria 4Not detectedNormalNOT DETECTEDThe [facility] HospitalComwalter p[facility] on above:Performed By: #### SPUTGS #### [facility] [address] [place] [address] Dr. Jessica Griffin/EnterovirusNot detectedNormalNOT DETECTEDThe [facility] HospitalComment on above:Performed By: #### SPUTGS #### [facility] [address] [place] [address] Dr. Jessica Watson Header 1RESPIRATORY PANEL: VIRUSESSt. [facility] Comment on above:Performed By: #### SPUTGS #### [facility] [address] [place] [address] Dr. Jessica Watson Header 2RESPIRATORY PANEL: BACTERIANoMiddletown HospitalComment on above:Performed By: #### SPUTGS #### [facility] [address] [place] [address] Dr. Jessica Traylor detectedNormalNOT DETECTEDThe [facility] HospitalComment on above:Performed By: #### SPUTSALIMA #### [facility] [address] [place] [address] Dr. Jessica Mmoin-CoV-2 (COVID-19) RNA MASON+probe Ql (Unsp spec)Not detected NormalNOT DETECTEDThe [facility] HospitalComment on above:Performed By: #### SPUTSALIMA #### [facility] [address] [place] [address] Dr. Jessica Dowling W MANUAL DIFFon [id number] LYMPH #NormalNationwide Children'S HospitalComwalter p. [facility] on above:Performed By: #### NOEMÍTBH #### [facility] [address] [place] [address] Dr. Jessica ChouYPICAL LYMPH %NormalThe [facility] HospitalComment on above: Performed By: #### NOEMÍTBH #### [facility] [address] [place] [address] Dr. Jessica Zaidi #1.2 103/ulCritically high0.0-0.3TUniversity Hospitals [facility] Comment on above:Performed By: #### NOEMÍTBH #### [facility] [address] [place] [address] Dr. Jessica Zaidi %7 %Critically high0-5The [facility] HospitalComment on above: Performed By: #### CVDTBH #### [facility] [address] [place] [address] Dr. Jessica Jaime #0.00 103/ulNormal0.00-0.10The [facility] HospitalComment on above:Performed By: #### CVDTBH #### [facility] [address] [place] [address] Dr. Jessica Jaime %0.0 %Critically low0.2-2.0The [facility] HospitalComment on above:Performed By: #### CVDTBH #### [facility] [address] [place] [address] Dr. Jessica Sellers #NormalThe [facility] HospitalComment on above:Performed By: #### CVDTBH #### [facility] [address] [place] [address] Dr. Jessica Sellers %NormalThe [facility] HospitalComment on above:Performed By: #### CVDTBH #### [facility] [address] [place] [address] Dr. Jessica GonzalezCORRECTED WBCNormal4.0-11.0The [facility] HospitalComment on above: Performed By: #### CVDTBH #### [facility] [address] [place] [address] Dr. Jessica Chowdhury #0.00 103/ulNormal0.00-0.70The [facility] HospitalComment on above:Performed By: #### CVDTBH #### [facility] [address] [place] [address] Dr. Jessica Chowdhury%0.0 %Critically low0.9-7.0The [facility] HospitalComment on above:Performed By: #### CVDTBH #### [facility] [address] [place] [address] Dr. Jessica GonzalezHCT37.1 %Rswjlh27.0-48.0The [facility] HospitalComment on above: Performed By: #### CVDTBH #### [facility] [address] [place] [address] Dr. Jessica GonzalezHGB12.3 g/cnIwenes90.0-16.0The [facility] HospitalComment on above: Performed By: #### CVDTBH #### [facility] [address] [place] [address] Dr. Jessica Rodriguez #1.17 103/ulCritically low1.20-3.80The [facility] Comment on above:Performed By: #### CVDTBH #### [facility] [address] [address] [address] Jessica Rodriguez%7.0 %Critically low20.5-60.0The [facility] HospitalComment on above:Performed By: #### CVDTBH #### [facility] [address] [place] [address] Dr. Jessica MeadH33.2 npKepmqr36.7-34.0The [facility] HospitalComment on above: Performed By: #### CVDTBH #### [facility] [address] [place] [address] Dr. Jessica MeadHC33.2 g/yoQewmkp15.9-35.2The [facility] HospitalComment on above:Performed By: #### CVDTBH #### [facility] [address] [place] [address] Dr. Jessica MeadV100.3 fLCritically high81.0-99.0The [facility] HospitalComment on above:Performed By: #### CVDTBH #### [facility] [address] [place] [address] Dr. Jessica IbrahimOCYTE #NormalThe [facility] HospitalComment on above: Performed By: #### CVDTBH #### [facility] [address] [place] [address] Dr. Jessica IbrahimOCYTE %NormalThe [facility] HospitalComment on above: Performed By: #### CVDTBH #### [facility] [address] [place] [address] Dr. Jessica Downing#0.67 103/ulNormal0.30-0.80The [facility] HospitalComment on above:Performed By: #### CVDTBH #### [facility] [address] [address] [address] Jessica Downing%4.0 %Normal1.7-12.0The [facility] HospitalComment on above: Performed By: #### CVDTBH #### [facility] [address] [place] [address] Dr. Jessica GonzalezMPV9.5 fLNormal9.5-13.5The [facility] HospitalComment on above: Performed By: #### CVDTBH #### [facility] [address] [place] [address] Dr. Jessica De AndaOCYTE #NormalThe [facility] HospitalComment on above:Performed By: #### CVDTBH #### [facility] [address] [place] [address] Dr. Jessica De AndaOCYTE %NormalThe [facility] HospitalComment on above:Performed By: #### CVDTBH #### [facility] [address] [place] [address] Dr. Jessica GonzalezNRBCNormalThe [facility] HospitalComment on above:Performed By: #### CVDTBH #### [facility] [address] [place] [address] Dr. Jessica SahuT206 103/jpZzpmqo125-662Xsa [facility] HospitalComment on above: Performed By: #### CVDTBH #### [facility] [address] [place] [address] Dr. Jessica GonzalezRBC3.70 106/ulCritically low4.20-5.40The [facility] HospitalComment on above:Performed By: #### CVDTBH #### [facility] [address] [place] [address] Dr. Jessica GonzalezRDW12.4 %Cauaht09.0-15.0The [facility] HospitalComment on above: Performed By: #### CVDTBH #### [facility] [address] [place] [address] Dr. Jessica Raygoza #13.69 103/ulCritically high1.40-6.50[facility] Comment on above:Performed By: #### CVDTBH #### [facility] [address] [place] [address] Dr. Jessica Raygoza %82.0 %Critically high43.0-75.0The [facility] HospitalComment on above:Performed By: #### CVDTBH #### [facility] [address] [place] [address] Dr. Jessica GonzalezWBC16.7 103/ulCritically high4.0-11.0The [facility] HospitalComment on above:Performed By: #### CVDTBH #### [facility] [address] [place] [address] Dr. Jessica LucasF CHEM 8 (BAS METB)on [id number] gap [Moles/Vol]14.4 mmol/LNormalThe [facility] HospitalComment on above:Performed By: #### SPUTGS #### [facility] [address] [place] [address] Dr. Jessica GonzalezCalcium [Mass/Vol]9.8 mg/dLNormal8.4-10.2[facility] Comment on above:Performed By: #### SPUTGS #### [facility] [address] [place] [address] Dr. Jessica GonzalezChloride [Moles/Vol]100 mmol/UZwpggf62-298PmwNationwide Children'S Hospital Comment on above:Performed By: #### SPUTGS #### [facility] [address] [place] [address] Dr. Jessica GonzalezCO2 [Moles/Vol]25.7 mmol/JKobaxx83.0-30.0[facility] Comment on above:Performed By: #### SPUTGS #### [facility] [address] [place] [address] Dr. Jessica GonzalezCreatinine [Mass/Vol]0.87 mg/dLNormal0.52-1.04The [facility] HospitalComment on above:Performed By: #### SPUTGS #### [facility] [address] [place] [address] Dr. Jessica GaviriaGFR-AF EMIRATI>60Normal>=60The [facility] HospitalComment on above:Performed By: #### SPUTGS #### [facility] [address] [place] [address] Dr. Jessica GaviriaGFR-NON AF EMIRATI>60Normal>=60The [facility] HospitalComment on above:Performed By: #### SPUTGS #### [facility] [address] [place] [address] Dr. Jessica GonzalezGlucose [Mass/Vol]194 mg/dLCritically qeja15-145Znc [facility] HospitalComment on above:Performed By: #### SPUTGS #### [facility] [address] [place] [address] Dr. Jessica GonzalezPotassium [Moles/Vol]3.1 mmol/LCritically low3.4-5.0[facility]S HospitalComment on above:Performed By: #### SPUTGS #### [facility] [address] [place] [address] Dr. Jessica GonzalezSodium [Moles/Vol]137 mmol/JJbmlip282-069UwyNationwide Children'S Hospital Comment on above:Performed By: #### SPUTGS #### [facility] [address] [place] [address] Dr. Jessica GonzalezUrea nitrogen [Mass/Vol]17.0 mg/dLNormal7.0-17.0[facility]S HospitalComwalter p. [facility] on above:Performed By: #### SPUTGS #### [facility] [address] [place] [address] Dr. Jessica GonzalezUrea nitrogen/Creatinine [Mass ratio]19.5 mg/mgNoMiddletown HospitalComwalter p. [facility] psychiatric hospital on above:Performed By: #### SPUTGS #### [facility] [address] [place] [address] Dr. Jessica PorterUTUM GRAM STAINon [id number] [place] [address] Comment on above:Performed By: #### SPUTGS #### [facility] [address] [place] [address] Dr. Jessica PughPHTHEROIDSSt. Mary's Medical CenterComment on above:Performed By: #### SPUTGS #### [facility] [address] [address] [address] Lopez ChangEPITHELIALS<25St. Mary's Medical CenterComment on above: Performed By: #### SPUTGS #### [facility] [address] [place] [address] Dr. Jessica GonzalezFUNGAL ELEMENTSSt. Mary's Medical CenterComment on above: Performed By: #### SPUTGS #### [facility] [address] [address] [address] Jessica Leslie NEG BACILLISt. Mary's Medical CenterComment on above: Performed By: #### SPUTGS #### [facility] [address] [place] [address] Dr. Jessica Leslie NEG DIPPLOCOCCISt. Mary's Medical CenterComment on above: Performed By: #### SPUTGS #### [facility] [address] [address] [address] Jessica Leslie POS BACILLIRARENormalNationwide Children'S HospitalComment on above: Performed By: #### SPUTGS #### [facility] [address] [address] [address] Jessica Leslie POSITIVE COCCIFEWSt. Mary's Medical CenterComment on above:Performed By: #### SPUTGS #### [facility] [address] [place] [address] Dr. Jessica Barrow (Bld) [#/Vol]10*3/uLSt. Mary's Medical CenterComment on above:Performed By: #### SPUTGS #### [facility] [address] [place] [address] Dr. Jessica GonzalezXR CHEST 2 Von [id number] CHEST 2 VEXAM: XR CHEST 2 V HISTORY: SHORTNESS OF [...] Electronically authenticated by: CALI BRITO Date: 2021-06-08 06:56[facility] AUTO DIFFon [id number] #0.0 103/ulNormal0.0-0.1The [facility] HospitalComment on above:Performed By: #### CBC #### [facility] [address] [place] [address] Dr. Jessica GonzalezBasophils/100 WBC (Bld)0.3 %Normal0.2-2.0The [facility] Comment on above:Performed By: #### CBC #### [facility] [address] [place] [address] Dr. Jessica Golden #0.1 103/ulNormal0.0-0.7The [facility] HospitalComment on above: Performed By: #### CBC #### [facility] [address] [address] [address] Jessica Gaviriaosinophils/100 WBC (Bld)0.5 %Critically low0.9-7.0The [facility] HospitalComment on above:Performed By: #### CBC #### [facility] [address] [place] [address] Dr. Jessica Gaviriarythrocyte distribution width (RBC) [Ratio]12.4 %Tcieaf63.0-15.[address] [facility] HospitalComment on above:Performed By: #### CBC #### [facility] [address] [place] [address] Dr. Jessica GonzalezHematocrit (Bld) [Volume fraction]40.5 %Uyeugo18.0-48.0The [facility] HospitalComment on above:Performed By: #### CBC #### [facility] [address] [place] [address] Dr. Jessica GonzalezHemoglobin (Bld) [Mass/Vol]14.0 g/cICytpyf02.0-16.0The [facility] HospitalComment on above:Performed By: #### CBC #### [facility] [address] [address] [address] Jessica Davidson #0.26 10e3/ulCritically high0.00-0.03The [facility] Comment on above:Performed By: #### CBC #### [facility] [address] [address] [address] Jessica Davidson %1.7 %Critically high0.0-0.5The [facility] HospitalComment on above:Performed By: #### CBC #### [facility] [address] [address] [address] Jessica Bonds #0.7 103/ulCritically low1.2-3.8The [facility] Comment on above:Performed By: #### CBC #### [facility] [address] [place] [address] Dr. Jessica Galvanhocytes/100 WBC (Bld)4.6 %Critically low20.5-60.0The [facility] HospitalComment on above:Performed By: #### CBC #### [facility] [address] [place] [address] Dr. Jessica España DIFF REQNONormalThe [facility] HospitalComment on above: Performed By: #### CBC #### [facility] [address] [address] [address] Jessica Mead (RBC) [Entitic mass]34.2 pgCritically high26.7-34.0The [facility] HospitalComment on above:Performed By: #### CBC #### [facility] [address] [place] [address] Dr. Jessica Mead (RBC) [Mass/Vol]34.6 g/aANzcrrr59.9-35.2The [facility] HospitalComment on above:Performed By: #### CBC #### [facility] [address] [place] [address] Dr. Jessica Mead (RBC) [Entitic vol]99.0 aNJzqlzc61.0-99.0The [facility] HospitalComment on above:Performed By: #### CBC #### [facility] [address] [place] [address] Dr. Jessica Manriquez #0.4 103/ulNormal0.3-0.8The [facility] HospitalComment on above:Performed By: #### CBC #### [facility] [address] [place] [address] Dr. Jessica Eastocytes/100 WBC (Bld)2.5 %Normal1.7-12.0[facility] Comment on above:Performed By: #### CBC #### [facility] [address] [place] [address] Dr. Jessica Martin #14.0 103/ulCritically high1.4-6.5The [facility] Comment on above:Performed By: #### CBC #### [facility] [address] [place] [address] Dr. Jessica Valdezutrophils/100 WBC (Bld)90.4 %Critically high43.0-75.0The [facility] HospitalComment on above:Performed By: #### CBC #### [facility] [address] [place] [address] Dr. Jessica Quezada mean volume (Bld) [Entitic vol]9.6 fLNormal9.5-13.5ThSt. Anthony's HospitalComment on above:Performed By: #### CBC #### [facility] [address] [place] [address] Dr. Jessica GonzalezPLT168 103/grDwtqia032-597Cun [facility] HospitalComment on above: Performed By: #### CBC #### [facility] [address] [place] [address] Dr. Jessica GonzalezRBC4.09 106/ulCritically low4.20-5.40The [facility] HospitalComment on above:Performed By: #### CBC #### [facility] [address] [place] [address] Dr. Jessica GonzalezWBC15.5 103/ulCritically high4.0-11.0The [facility] HospitalComment on above:Performed By: #### CBC #### [facility] [address] [place], [place] [address] Dr. Jessica Alvarenga CHEST WO W CONon [id number] CHEST WO W CONCTA OF THE CHEST HISTORY: Chest pain COMPARISON: [...] Electronically authenticated by: MULU GARCIA Date: 2021-06-07 05:08[facility] CenterCULTURE BLOODon [id number] examination of blood, cultureCulture Observations: No growth at [address] [facility] HospitalComment on above:Performed By: #### BMP #### [facility] [address] [place], [place] [address] Dr. Jessica Esquiveld-19 PCR (CVDTB)on [id number]-CoV-2 (COVID-19) RNA MASON+probe Ql (Unsp spec)Not detectedNormalNOT DETECTEDThe [facility] Comment on above:Result Comment: When diagnostic testing is negative, the [...] for this test is supported by the Customs Port Director of Health and Human Service's declaration that circumstances exist to justify the emergency use of in vitro diagnostics for the detection and/or diagnosis of the virus that causes COVID-19. This EUA will remain in effect for the duration of the COVID-19 declaration justifying emergency of IVDs, unless it is terminated or revoked by the FDA (after which the test may no longer be used).Performed By: #### CVDTBH #### [facility] [address] [place] [address] Dr. Jessica GonzalezLACTATE/LACTIC ACIDon 90-86-5114Exxkzpd [Moles/Vol]1.8 mmol/L Normal0.7-2.0The [facility] HospitalComment on above:Performed By: #### CVDTBH #### [facility] [address] [place] [address] Dr. Jessica GonzalezPROF 14(COMP METB)on [id number] [Mass/Vol]3.1 g/dL Critically low3.5-5.0The [facility] HospitalComment on above:Performed By: #### CMP #### [facility] [address] [place] [address] Dr. Jessica GonzalezAlbumin/Globulin [Mass ratio]0.8 {ratio}NormalThe [facility] HospitalComment on above:Performed By: #### CMP #### [facility] [address] [place] [address] Dr. Jessica Hartman [Catalytic activity/Vol]89 U/PXqrqve98-420Bzx [facility] HospitalComment on above:Performed By: #### CMP #### [facility] [address] [place] [address] Dr. Jessica Asif [Catalytic activity/Vol]21 U/LNormal9-52The [facility] Comment on above:Performed By: #### CMP #### [facility] [address] [address] [address] Jessica Mandujano gap [Moles/Vol]13.2 mmol/LNormalNationwide [facility] Comment on above:Performed By: #### CMP #### [facility] [address] [address] [address] Jessica GonzalezAST [Catalytic activity/Vol]15 U/CEcrpib71-97Was [facility] HospitalComment on above:Performed By: #### CMP #### [facility] [address] [address] [address] Jessica GonzalezBilirubin [Mass/Vol]1.2 mg/dLNormal0.2-1.3The [facility] Comment on above:Performed By: #### CMP #### [facility] [address] [place] [address] Dr. Jessica GonzalezCalcium [Mass/Vol]9.0 mg/dLNormal8.4-10.2[facility] Comment on above:Performed By: #### CMP #### [facility] [address] [place] [address] Dr. Jessica GonzalezChloride [Moles/Vol]102 mmol/TBtntcb34-304AzwNationwide Children'S Hospital Comment on above:Performed By: #### CMP #### [facility] [address] [place] [address] Dr. Jessica GonzalezCO2 [Moles/Vol]27.4 mmol/TAijzop55.0-30.0[facility] Comment on above:Performed By: #### CMP #### [facility] [address] [address] [address] Jessica GonzalezCreatinine [Mass/Vol]1.05 mg/dLCritically high0.52-1.04The [facility] HospitalComment on above:Performed By: #### CMP #### [facility] [address] [place] [address] Dr. Jessica GaviriaGFR-AF EMIRATI>60Normal>=60The [facility] HospitalComment on above:Performed By: #### CMP #### [facility] [address] [place] [address] Dr. Jessica GaviriaGFR-NON AF WPKAXNBQ74 mL/min/1.61k8Githraihhx low>=60The [facility] HospitalComment on above:Performed By: #### CMP #### [facility] [address] [address] [address] Jessica GonzalezGlobulin (S) [Mass/Vol]3.9 g/dLNormMartin Memorial HospitalComment on above:Performed By: #### CMP #### [facility] [address] [address] [address] Jessica GonzalezGlucose [Mass/Vol]133 mg/dLCritically mjun18-553Uuj [facility] HospitalComment on above:Performed By: #### CMP #### [facility] [address] [place] [address] Dr. Jessica GonzalezPotassium [Moles/Vol]3.6 mmol/LNormal3.4-5.0The [facility] Comment on above:Performed By: #### CMP #### [facility] [address] [place] [address] Dr. Jessica GonzalezProtein [Mass/Vol]7.0 g/dLNormal6.1-8.2The [facility] Comment on above:Performed By: #### CMP #### [facility] [address] [place] [address] Dr. Jessica GonzalezSodium [Moles/Vol]139 mmol/CFnlouo506-699Wln [facility] Comment on above:Performed By: #### CMP #### [facility] [address] [place] [address] Dr. Jessica GonzalezUrea nitrogen [Mass/Vol]14.0 mg/dLNormal7.0-17.0The [facility] HospitalComment on above:Performed By: #### CMP #### [facility] [address] [place] [address] Dr. Jessica GonzalezUrea nitrogen/Creatinine [Mass ratio]13.3 mg/mgNormMartin Memorial HospitalComment on above:Performed By: #### CMP #### [facility] [address] [place] [address] Dr. Yilan ChangXR CHEST 1 Von [id number] CHEST 1 VEXAM: XR CHEST 1 V HISTORY: SHORTNESS OF BREATH acute dyspnea, cough COMPARISON: None. TECHNIQUE: Single frontal view chest x-ray FINDINGS:Right upper lobe pulmonary opacity/consolidation. No large effusions or pneumothorax. No acute bony abnormality. Cardiac size unremarkable. IMPRESSION: Right upper lobe pulmonary opacity/consolidation concerning for pneumonia versus focal edema although underlying lung lesion not excluded. CT chest to further clarify as indicated. Electronically authenticated by: TERELL BENITEZ Date: 2021-06-07 02:24[facility] Vital Signs Date TimeVital SignValuePerforming ErmoquommLsnpaeun79-32-1218 13:44-0400Body sozjhp098.7 cmPiter Cleary MD Work Phone: [facility] [id number] 13:44-0400Body mass index (BMI) [Ratio]31.63 kg/m2Piter Cleary MD Work Phone: [facility] HospitalKhfxbaphzs04-42-6023 13:44-0400Body temperature 97.3 [degF]Piter Cleary MD Work Phone: [facility] HospitalTknjiqdupt85-47-4634 13:44-0400Body .35 kgPiter Cleary MD Work Phone: [facility] HospitalRcjdrnvkbr44-60-0590 13:44-0400Diastolic blood nhisyuqf27 mm[Hg]Piter Cleary MD Work Phone: [facility] HospitalTaxchmoois02-72-6259 13:44-0400Heart rate78 /min Piter Cleary MD Work Phone: [facility] HospitalOjxmcslmdk56-29-3416 13:44-0400Respiratory rate20 /minPiter Cleary MD Work Phone: [facility] HospitalBhtdhpvmnj21-15-8910 13:44-1922QoJ4% (BldA) [Mass fraction]97 %Piter Cleary MD Work Phone: [facility] HospitalGpxwkwcqql56-96-9202 13:44-0400Systolic blood xutwyhub583 mm[Hg]Piter Cleary MD Work Phone: [facility] HospitalFsgvrcoqbm55-23-8205 11:37-0400Body agmvsv350.7 cmPiter Cleary MD Work Phone: [facility] HospitalNryuqkvhcf34-18-4575 11:37-0400Body mass index (BMI) [Ratio]32.39 kg/m2Piter Cleary MD Work Phone: [facility] HospitalVyqbqcjlxw22-06-8481 11:37-0400Body temperature 97.11 [degF]Piter Cleary MD Work Phone: [facility] HospitalXvqfhwhuya25-54-4927 11:37-0400Body eaezwr96.62 kgPiter Cleary MD Work Phone: [facility] HospitalGxexzdosvx50-71-9655 11:37-0400Diastolic blood bfiueqrr97 mm[Hg]Piter Cleary MD Work Phone: [facility] HospitalNtnnruhvuy05-43-9065 11:37-0400Heart rate61 /min Piter Cleary MD Work Phone: [facility] HospitalIuyngczola47-77-6896 11:37-0400Respiratory rate20 /minPiter Cleary MD Work Phone: [facility] HospitalKosjoucuwm39-87-3434 11:37-6695RvX8% (BldA) [Mass fraction]97 %Piter Cleary MD Work Phone: [facility] HospitalKtmwlexfqy17-66-7289 11:37-0400Systolic blood idxedvug647 mm[Hg]Piter Cleary MD Work Phone: [facility] HospitalTmebwfrggw38-60-5170 09:22-0500Body .7 cmPiter Cleary MD Work Phone: [facility] HospitalWbdurpjuuj81-54-5932 09:22-0500Body mass index (BMI) [Ratio]32.08 kg/m2Piter Cleary MD Work Phone: [facility] HospitalXhotkzraii26-43-0102 09:22-0500Body temperature 97.11 [degF]Piter Cleary MD Work Phone: [facility] HospitalAailwhfwkp83-41-4924 09:22-0500Body lacpyx48.71 kgPiter Cleary MD Work Phone: [facility] HospitalRwdrlsqajx36-32-7862 09:22-0500Diastolic blood ntqajbzg69 mm[Hg]Piter Cleary MD Work Phone: [facility] HospitalBrvhhmyeap00-85-6852 09:22-0500Heart rate91 /min Piter Cleary MD Work Phone: [facility] HospitalJhxwgunppv45-25-9442 09:22-0500Respiratory rate20 /minPiter Cleary MD Work Phone: [facility] HospitalCcrvgevuxy35-92-9231 09:22-2455HlJ5% (BldA) [Mass fraction]97 %Piter Cleary MD Work Phone: [facility] HospitalMhgtwtmowc43-81-9646 09:22-0500Systolic blood aqycweyf219 mm[Hg]Piter Cleary MD Work Phone: [facility] HospitalDhuumaompc76-30-4525 10:42-0400Body [facility]aokri156.72 [facility] 10:42-0400Body mass index (BMI) [Ratio]29.8 kg/r3NmnyhjjneSub[facility]08-04-2024 10:42-0400Body fyttktrnsqr74.2 [degF][facility]08-04-2024 10:42-0400Body bjlpfa25.07 kgSub[facility]08-04-2024 10:42-0400Diastolic blood lczxxevs03 mm[Hg][facility]08-04-2024 10:42-0400 Heart rate75 /[facility]08-04-2024 10:42-0400 Respiratory rate16 /[facility]08-04-2024 10:42-0400 SaO2% (BldA) [Mass fraction]96 %[facility]08-04-2024 10:42-0400Systolic blood wcowswxc811 mm[Hg][facility] 06-03-2023 14:45-0500Body ewarje149.72 cmAdenny Shields Other [employer] Other 12-31-2023 14:45-0500Body mass index (BMI) [Ratio] 31.17 kg/c8JyviiErma Shields Other [employer] Other 12-31-2023 14:45-0500Body yaokfbotxir79.1 [degF]Erma Shields Other [employer] Other 12-31-2023 14:45-0500Body .99 kgErma Shields Other [employer] Other 12-31-2023 14:45-0500Respiratory rate18 /minErma Cornelius Other [facility] [employer] Other 12-31-2023 14:45-3562QaF3% (BldA) [Mass fraction]95 % Erma Shields Other [employer] Other Encounters Encounter DateEncounter TypeCare ProviderFacilityStart: 12-30-2024 End: 28-71-3909Lzigfn flowsAngelique Cleary MD Work Phone: [facility] CWM FMStart: 12-30-2024 End: 59-61-4858Ogyaog flowsheetPiter Cleary MD Work Phone: [facility] CWM FMStart: 12-30-2024 End: 67-40-1165Tsgcsg outpatient visit 15 minutesPiter Cleary MD Work Phone: [facility] CW FMComment on above:Lightheadedness (Primary Dx); Seasonal allergic rhinitis due to pollenStart: 12-30-2024 End: 09-78-3361gskktqopkuLPOZ NADERERNot AvailableStart: 11-07-2024 End: 53-75-3812Btvbihpip Result EncounterPiter Cleary MD Work Phone: [facility] External Department UnsolicitedStart: 11-07-2024 End: 49-38-4262Jtlyvdehm Result EncounterPiter Cleary MD Work Phone: [facility] External Department UnsolicitedStart: 11-03-2024 End: 35-77-8063Oklscj flowsAngelique Cleary MD Work Phone: [facility] CWM FMStart: 11-03-2024 End: 35-11-5912Ocdlga [place] Cleary MD Work Phone: [facility] CWM FMStart: 11-03-2024 End: 59-00-4123Mujmduq encounter procedurePiter Cleary MD Work Phone: [facility] Work Phone: Start: 11-03-2024 End: 49-09-2071Mjqtgg follow up visit related to original Nickie Cleary MD Work Phone: [facility] FMComment on above:Medicare annual wellness visit, subsequent (Primary Dx); Benign hypertension (CMS/HCC); Class 1 obesity due to excess calories with serious comorbidity and body mass index (BMI) of 32.0 to 32.9 in adult; Chronic obstructive pulmonary disease, unspecified COPD type (CMS/HCC); Dyslipidemia (CMS/HCC); Encounter for long-term current use of medication; Pre-diabetesStart: 11-03-2024 End: 21-43-8884cnvoegontbMKWB NADERERNot AvailableStart: 07-04-2024 End: 85-17-0624Hdzmyxmiu Result EncounterGeneric External Data ProviderNOMS External Department UnsolicitedStart: 07-04-2024 End: 74-96-1140Ohswzloei Result EncounterGeneric External Data ProviderNOMS External Department UnsolicitedStart: 06-05-2024 End: 49-94-1328Jnxxxq [place] Cleary MD Work Phone: [facility] CWM FMStart: 06-05-2024 End: 35-97-3207Wwkxoe flowsheetPiter Cleary MD Work Phone: [facility] CWM FMStart: 06-05-2024 End: 16-29-1363Rrcero outpatient visit 25 minutesPiter Cleary MD Work Phone: [facility] CWM FMComment on above:Benign hypertension (CMS/HCC) (Primary Dx); SHAN (generalized anxiety disorder) (CMS/HCC); Chronic obstructive pulmonary disease, unspecified COPD type (CMS/HCC); Lower extremity edema; Gastroesophageal reflux disease without esophagitisStart: 06-05-2024 End: 00-45-2755lepxazzvgiMSFW NADERERNot AvailableStart: 02-05-2024 End: 49-40-9428Asyqjr flowsheetKylie S Windsor [employer]FFIC CONTROL [employer]GER-S Work Phone: [facility] FNR BHStart: 02-05-2024 End: 67-30-2998Cmzfwh flowsheetKylie S Stella [employer] CONTR[employer]GER-S Work Phone: [facility] FNR BHStart: 02-05-2024 End: 80-64-1849kvsufhtbsuGLDPQ S LAUGHLINNot AvailableStart: 01-17-2024 End: 22-15-5954djxbwqwzeyXRPGK S LAUGHLINNot AvailableStart: 01-10-2024 End: 21-33-6343bafmvzwiwlYKELB S LAUGHLINNot AvailableStart: 01-06-2024 End: 16-40-5154vlposnpmibVdsmquddbPar[facility] Work Phone: Start: 01-06-2024 End: 05-80-0757Binlcec encounter procedureScionhealth [facility] Work Phone: Start: 06-03-2023 End: 10-28-6170ysqzbrvqdiFuyei Keller Other [place] [employer] Other Start: 85-44-7851Jxrhap outpatient new 30 minutesAmber KellerFPG Urgent Care ClydeStart: 06-07-2021 End: 35-04-0427Giilzdkhkj and management of inpatientDR REAGAN MACDONALDFacility:H1 Start: 05-16-2021 End: 68-26-1631mhgkuntqhlLL ASTRID Vance ROBINFacility:H1 Procedures DateProcedureProcedure DetailPerforming ClinicianStart: 25-10-9239FOL CBC WITH AUTO DIFFMarc Madiha SPENCER Work Phone: Start: 35-33-7969HC LUNG SCREENING LOW DOSEGeneric External Data ProviderStart: 02-05-2024 End: 61-64-9241Nqlyvolqpilng w/patient 60 minutesGAD (generalized anxiety disorder) ([facility]/HCC)Magui BOWDEN Work Phone: Comment on above:SHAN (generalized anxiety disorder) ([facility]) Plan of Treatment DateCare ActivityDetailAuthorStart: 06-02-2026Medicare Annual Wellness (AWV) Medicare Annual Wellness (AWV)[facility] HealthcareStart: 94-27-0950Pvkescnbp for malignant neoplasm of colonNOMS HealthcareStart: 05-07-2025 End: 07-09-9500Rtsokkb encounter /04/2025 9:00 AM EST Office Visit [facility] [address] [place] [address] Piter Cleary MD [address] [place] [id number] [facility] CW FMStart: 55-47-5100Kgzfshgoy vaccinationInfluenza Vaccine (#1)[facility] HealthcareStart: 12-30-2024 End: 36-79-5310Tfspfqh encounter kaanewhmw77/29/2025 1:45 PM EDT Office Visit [facility] [address] [place] [phone] Piter Cleary MD [address] [place] [address] [facility] FMComment on above:ArrivedStart: 11-03-2024 End: 42-83-0995Qawub metabolic 1998 panel - Serum or PlasmaBasic metabolic panel Lab Routine Benign hypertension (CMS/HCC) Expected: 11/03/2024 (Approximate), Expires: 11/03/2025[facility] HealthcareComment on above:Expected: 11/03/2024 (Approximate), Expires: 11/03/2025Start: 11-03-2024 End: 19-25-2055HXH W Auto Differential panel - BloodCBC and differential Lab Routine Encounter for long-term current use of medication Expected: 11/03/2024 (Approximate), Expires: 11/03/2025[facility] HealthcareComment on above:Expected: 11/03/2024 (Approximate), Expires: 11/03/2025Start: 11-03-2024 End: 95-19-0261Ybklkyzmyu A1c/Hemoglobin.total in BloodHemoglobin A1c Lab Routine Pre-diabetes Expected: 11/03/2024 (Approximate), Expires: 11/03/2025[facility] Healthcare Work Phone: Comment on above:Expected: 11/03/2024 (Approximate), Expires: 11/03/2025Start: 11-03-2024 End: 00-02-4938Zwyxqld function 2000 panel - Serum or PlasmaHepatic function panel Lab Routine Encounter for long-term current use of medication Expected: 11/03/2024 (Approximate), Expires: 11/03/2025[facility] HealthcareComment on above: Expected: 11/03/2024 (Approximate), Expires: 11/03/2025Start: 11-03-2024 End: 05-07-4779Hlizr 1996 panel - Serum or PlasmaLipid panel Lab Routine Dyslipidemia (CMS/HCC) Expected: 11/03/2024 (Approximate), Expires: 11/03/2025 [facility] HealthcareComment on above:Expected: 11/03/2024 (Approximate), Expires: 11/03/2025Start: 11-03-2024 End: 92-71-8051Lucvwfnssty [Units/volume] in Serum or PlasmaTSH Lab Routine Class 1 obesity due to excess calories with serious comorbidity and body mass index(BMI) of 32.0 to 32.9 in adult Expected: 11/03/2024 (Approximate), Expires: 11/03/2025[facility] HealthcareComment on above:Expected: 11/03/2024 (Approximate), Expires: 11/03/2025Start: 11-03-2024 End: 81-30-1568Nbxjyfh encounter procedureNOMS CWM FMComment on above:Arrived Start: 05-29-2025Medicare Annual Wellness (AWV)Medicare Annual Wellness (AWV) NOM HealthcareStart: 89-64-7477Baqrdmaay for malignant neoplasm of breast MammogramNOMS HealthcareComment on above:Postponed from 1997 (Patient Refused)Start: 06-05-2024 End: 52-83-1783Aqpinah encounter procedureNOMS CWM FMComment on above:Arrived Start: 02-05-2024 End: 85-78-4664Azpjkv Work02/05/2024 8:00 AM EDT Social Work [facility] [address] [place] [address] Magui Murdock, JAIRO-S [address] [place] [address] [facility] Comment on above:ArrivedStart: 22-72-1328Xmakcwdqw vaccinationInfluenza Vaccine (#1)[facility] HealthcareStart: 93-95-0402Wrmembkqcyvk Vaccine: 65+ Years (1 of 2 - PCV)Pneumococcal Vaccine: 65+ Years (1 of 2 - PCV)[facility] HealthcareStart: 43-09-4890Dtdojawkl for malignant neoplasm of colonNOAL Healthcare Immunizations Immunization DateImmunizationNotesCare OskopqldNfdazcly11-24-3938Trrsinhnsgcv Conjugate PCV 20Marc Madiha SPENCER Work Phone: [facility] Xzfpasylci08-97-9004JCA, recombinant, protein subunit RSVpreF, adjuvant reconstitu, 120mcg/0.5mL, PF (Arexvy)Piter Cleary MD Work Phone: [facility] HospitalDziujauitp60-22-0653tjhepsfqj, high dose seasonal, preservative-freePiter Cleary MD Work Phone: [facility] HospitalYkfhqzwsdt64-97-7482udefrctfp virus vaccine, unspecified formulationPiter Cleary MD Work Phone: noSaint [facility] CenterFbfobknwpj20-92-8469wpkhdkhia virus vaccine, unspecified formulationMagui BOWDEN Work Phone: [facility] Payers DatePayer CategoryPayerPolicy [id number] MEDICARE ADVANTAGE AN[employer]M MEDICARE ADVANTAGE [id number] 2023-Present [address] [place] [id number] 2024Medicare (Managed Care)[employer]IC[employer] ADVANTAGE Member Subscriber Plan / Payer (Effective 2023-) Name: Marielysue Miranda Relation to Subscriber: Self Name: Miranda Gilliland Payer ID: Not on file Group ID: [id number] Type: Not on file Address: [address] [place] [id number] .[id number] [id number] .[id number] .[id number] 2.16.840.1.215576.3.57[id number] 2.16.840.1.467410.3.57[id number] 2.16.840.1.589657.3.57[id number] 2.16.840.1.307720.3.57[id number] 2.16.840.1.813573.3.57[id number] 2.16.840.1.740073.3.57[id number] Social History DateTypeDetailFacilityStart: 12-03-2023 End: 74-57-3840Aev Assigned At BirthNokindred hospital [employer] Other Start: 45-46-9715Ldfmngh smoking status NHISSmoker (finding)[facility] Centertart: 46-15-3883Bih Assigned At [facility] Systemtart: 36-95-3909Mygaovp smoking status NHISEx-smokerNOMS HealthcareHistory of tobacco useCigarette SmokerNOAL HealthcareStart: 06-12-2023 End: 99-32-9491Wmrwvarovf smoked current (pack per day) - Reported0.5NOAL HealthcareStart: 54-86-0834Xkq assigned at birthNot on [facility] Functional Status LzcxLxhyfssiwgAfhotmSnvlctjj45-15-5329Dlrvdkh Health Questionnaire 2 item (PHQ- 2) [Reported][facility] Clinical Notes 05-16-2021 to 12-30-2024 Note Date & PuywSpdkJwyqqqyw06-59-6837 History of Present illness Narrative* Piter Cleary MD - 12/30/2024 2:18 PM EDTAssociated Problem(s): Seasonal allergic rhinitis due to pollen Increased symptoms and add flonase. * Piter Cleary MD - 12/30/2024 2:18 PM EDTAssociated Problem(s): Lightheadedness Symptoms with position changes and possibly related to sinus symptoms. Add flonase and monitor. If persist will stop hydrochlorothiazide. * Piter Cleary MD - 12/30/2024 1:45 PM EDT Images from the original note were not included. Subjective Patient ID: Miranda Gilliland is a 69 y.o. female who presents for Vertigo (Dizziness after sittingfor prolonged time/Twitch in face) and Cough. C/o lightheaded off and on for almost 2 months. Notice when sitting then stand up. Feels very lightheaded and like will pass out of worsens. No motion or spinning. No palpitations or heart racing. Notice if active and only sit few minutes doesn't happen. If sit for an hour or more then stand will have severe symptoms. Often need to stay still and resolves after few seconds. C/o increased congestion and sinus symptoms. Developed cough from postnasal drip. No SOB. Ears plugged. Using OTC allergy pill but no change. Review of Systems Respiratory: Negative for cough, [...] Assessment/Plan Problem List Items Addressed This Visit Seasonal allergic rhinitis due to pollen Increased symptoms and add flonase. Relevant Medications fluticasone (Flonase) 50 MCG/ACT nasal spray Lightheadedness - Primary Symptoms with position changes and possibly related to sinus symptoms. Add flonase and monitor. If persist will stop hydrochlorothiazide. documented in this encounterWright Memorial HospitalQchkxdktko98-67-8012 History of Present illness Narrative* Piter Cleary MD - 11/03/2024 12:15 PM EDTAssociated Problem(s): Medicare annual wellness visit, subsequent Due for labs. Discussed proper diet and regular aerobic exercise. Need aerobic exercise 5-6 days a week for 30 minutes at a time. Smaller portions and limit total calories. Cologuard normal October 2022.Tetanus every 10 years. Advised not to smoke. * Piter Cleary MD - 11/03/2024 12:14 PM EDTAssociated Problem(s): COPD (chronic obstructive pulmonary disease) ([facility]) Breathing stable and continue trelegy. Follow up with slide fastener repairer. * Piter Cleary MD - 11/03/2024 12:14 PM EDTAssociated Problem(s): Class 1 obesity due to excess calories with serious comorbidity and body mass index (BMI) of 32.0 to 32.9 in adult Weight loss indicated. * Piter Cleary MD - 11/03/2024 12:14 PM EDTAssociated Problem(s): Benign hypertension (CMS/HCC) BP controlled and monitor PRN. * Piter Cleary MD - 11/03/2024 11:30 AM EDT Images from the original note were not [...] List Items Addressed This Visit Benign hypertension ([facility]) BP controlled and monitor PRN. Relevant Medications lisinopril-hydroCHLOROthiazide 10-12.5 MG tablet Other Relevant Orders Basic metabolic panel Dyslipidemia ([facility]/HCC) Relevant Orders Lipid panel Pre-diabetes Relevant Orders Hemoglobin A1c COPD (chronic obstructive pulmonary disease) ([facility]) Breathing stable and continue trelegy. Follow up with slide fastener repairer. Encounter for long-term current use of medication [...] and limit total calories. Cologuard normal October 2022.Tetanus every 10 years. Advised not to smoke. documented in this encounterWright Memorial HospitalVyrrhhdssd04-28-2211 History of Present illness Narrative* Piter Cleary MD - 06/05/2024 10:05 AM ESTAssociated Problem(s): Lower extremity edema Edema stable and elevate legs PRN. * Piter Cleary MD - 06/05/2024 10:05 AM ESTAssociated Problem(s): Gastroesophageal reflux disease Symptoms controlled with medication and continue. * Piter Cleary MD - 06/05/2024 10:04 AM ESTAssociated Problem(s): SHAN (generalized anxiety disorder) ([facility]) Symptoms improved with wellbutrin and continue. * Piter Cleary MD - 06/05/2024 10:04 AM ESTAssociated Problem(s): COPD (chronic obstructive pulmonary disease) (CMS/HCC) Breathing stable and continue trelegy. Refer to local slide fastener repairer. * Piter Cleary MD - 06/05/2024 10:04 AM ESTAssociated Problem(s): Benign hypertension (CMS/HCC) BP controlled and monitor PRN. * Piter Cleary MD - 06/05/2024 9:15 AM EST Images from the original note were not [...] stable and continue trelegy. Refer to local slide fastener repairer. SHAN (generalized anxiety disorder) ([facility]) Symptoms improved with wellbutrin and continue. documented in this encounterWright Memorial HospitalRzxcbyzqei42-77-7252 Evaluation note* Encounter Date Diagnosis Assessment Notes Treatment Notes Treatment Clinical Notes May, Mild intermittent asthma with ac klamath exacerbation (ICD-10 - J45.21) Advised patient that [...] rest, may use Tylenol as needed for fever/discomfort, cool mist humidifier. May use [place] as needed for cough, do not take any other OTCs while using [place]. Use Albuterol inhaler as directed. Patient to follow up with PCP in 2-3 days. Immediate eval if SOB, difficulty breathing, chest pain, dizziness, or other concerning symptoms. Patient verbalizes understanding and is agreeable to treatment plan. 31 Dec, 2023Acute cough (ICD-10 - R05.1) [employer] Other 12-13-2021 NotePROCEDURE: XR GI UPPER AIR KUB DUAL CONTRAST, XR CINERADIOGRAPHY COMPARISON: [...] Electronically authenticated by: ASTRID KELLY Date: 2021-05-16 09:51[facility]12-13-2021 NotePROCEDURE: XR GI UPPER AIR KUB DUAL CONTRAST, XR CINERADIOGRAPHY COMPARISON: [...] Electronically authenticated by: ASTRID KELLY Date: 2021-05-16 09:51[facility]* Diagnosis Onset Date Resolution Status Acute conjunctivitis, bilateral acute [facility] Work Phone: Evaluation note* Diagnosis SHAN (generalized anxiety disorder) ([facility]/HCC) Generalized anxiety disorder documented in this encounter [facility] HealthcareEvaluation note* Diagnosis RSV (respiratory syncytial virus pneumonia)- Primary Pneumonia due to respiratory syncytial virus COPD with acute exacerbation ([facility]) Benign hypertension ([facility]) Essential hypertension, benign Gastroesophageal reflux disease without esophagitis Esophageal reflux Chronic obstructive pulmonary disease, unspecified COPD type ([facility]) Benign hypertension ([facility])- Primary Essential hypertension, benign Lower extremity edema Edema Chronic obstructive pulmonary disease, unspecified COPD type ([facility]) Gastroesophageal reflux disease without esophagitis Esophageal reflux SHAN (generalized anxiety disorder) ([facility]) Generalized anxiety disorder Dyslipidemia ([facility]) Other and unspecified hyperlipidemia Encounter for long-term current use of medication Pre-diabetes Other abnormal glucose Obesity (BMI 30-39.9) Dermatitis Contact dermatitis and other eczema, due to unspecified cause Benign hypertension ([facility])- Primary Essential hypertension, benign SHAN (generalized anxiety disorder) ([facility]) Generalized anxiety disorder Chronic obstructive pulmonary disease, unspecified COPD type ([facility]) Lower extremity edema Edema Gastroesophageal reflux disease without esophagitis Esophageal reflux documented in this encounter [facility] HealthcareEvaluation note* Diagnosis RSV (respiratory syncytial virus pneumonia)- Primary Pneumonia due to respiratory syncytial virus COPD with acute exacerbation ([facility]) Benign hypertension ([facility]) Essential hypertension, benign Gastroesophageal reflux disease without esophagitis Esophageal reflux Chronic obstructive pulmonary disease, unspecified COPD type ([facility]) Benign hypertension ([facility])- Primary Essential hypertension, benign Lower extremity edema Edema Chronic obstructive pulmonary disease, unspecified COPD type ([facility]) Gastroesophageal reflux disease without esophagitis Esophageal reflux SHAN (generalized anxiety disorder) ([facility]) Generalized anxiety disorder Dyslipidemia ([facility]) Other and unspecified hyperlipidemia Encounter for long-term current use of medication Pre-diabetes Other abnormal glucose Obesity (BMI 30-39.9) Dermatitis Contact dermatitis and other eczema, due to unspecified cause Benign hypertension ([facility])- Primary Essential hypertension, benign SHAN (generalized anxiety disorder) ([facility]) Generalized anxiety disorder Chronic obstructive pulmonary disease, unspecified COPD type ([facility]) Lower extremity edema Edema Gastroesophageal reflux disease without esophagitis Esophageal reflux Medicare annual wellness visit, subsequent- Primary Benign hypertension ([facility]) Essential hypertension, benign Class 1 obesity due to excess calories with serious comorbidity and body mass index (BMI) of 32.0 to 32.9 in adult Chronic obstructive pulmonary disease, unspecified COPD type ([facility]) Dyslipidemia ([facility]) Other and unspecified hyperlipidemia Encounter for long-term current use of medication Pre-diabetes Other abnormal glucose documented in this encounter [facility] HealthcareEvaluation note* Diagnosis RSV (respiratory syncytial virus pneumonia)- Primary Pneumonia due to respiratory syncytial virus COPD with acute exacerbation (HCC) Benign hypertension Essential hypertension, benign Gastroesophageal reflux disease without esophagitis Esophageal reflux Chronic obstructive pulmonary disease, unspecified COPD type (HCC) Benign hypertension- Primary Essential hypertension, benign Lower extremity edema Edema Chronic obstructive pulmonary disease, unspecified COPD type (HCC) Gastroesophageal reflux disease without esophagitis Esophageal reflux SHAN (generalized anxiety disorder) Generalized anxiety disorder Dyslipidemia Other and unspecified hyperlipidemia Encounter for long-term current use of medication Pre-diabetes Other abnormal glucose Obesity (BMI 30-39.9) Dermatitis Contact dermatitis and other eczema, due to unspecified cause Benign hypertension- Primary Essential hypertension, benign SHAN (generalized anxiety disorder) Generalized anxiety disorder Chronic obstructive pulmonary disease, unspecified COPD type (HCC) Lower extremity edema Edema Gastroesophageal reflux disease without esophagitis Esophageal reflux Medicare annual wellness visit, subsequent- Primary Benign hypertension Essential hypertension, benign Class 1 obesity due to excess calories with serious comorbidity and body mass index (BMI) of 32.0 to 32.9 in adult Chronic obstructive pulmonary disease, unspecified COPD type (HCC) Dyslipidemia Other and unspecified hyperlipidemia Encounter for long-term current use of medication Pre-diabetes Other abnormal glucose Lightheadedness- Primary Dizziness and giddiness Seasonal allergic rhinitis due to pollen documented in this encounter [facility] N[facility]ative - Reported* Type Description Date Medical History hypertension Medical HistoryasthmaSurgical HistorytonsillectomySurgical Historyreconstructive ear surgerySurgical Historyneuroma in right footSurgical Historytubal ligation Surgical Historyvein ablasion right legHospitalization Historycellulitis Hospitalization History [facility] Other Summary Purpose Family History No Family History Records Found Relationship Condition Age at Onset Recorded Date/T anali father Unknown Advance Directives No Advanced Directives Records Found Advance Directive Response Recorded Date/ Time Advance Directives No January 05 024 9:43am Chief Complaint and Reason for Visit Chief Complaint Poss Nebo eye Reason for Visit Acute conjunctivitis , bilateral Additional Source Comments INFORMATION SOURCE (unrecogn ized section and content) DATE CREATED AUTHOR 06/23/[address] [facility] DATE CREATED AUTHOR AUTHOR'S ORGANIZ ATION 01/01/2025 [facility] EPIC REASON FOR VISIT (unrecogniz ed section and content) ReasonCommentscounseling sessionReasonCommentsFollow-up6mReasonCommentsMedicare Annual Wellness Visit SubsequentWellnessReasonCommentsVertigoDizziness after sitting for prolonged timeTwitch in faceCough Care Teams (unrecognized sec tion and content) Team Status: Active Member Role Status Dates Piter Cleary MD Primary Care Provider Active Team Status: Inactive Member Role Status Dates Piter Cleary MD Primary Care Provider Active S tart: January 06, 2024 End: January 05manda Francie Perez , APRNAttending ProviderActiveStart: January 06, 2024 End: January 06, 2024Team MemberRelationshipSpecialtyStart DateEnd Date Piter Cleary MD [address] [place] [address] PCP - GeneralFamily Medicine12/03/23Team MemberRelationshipSpecialtyStart DateEnd Date Piter Cleary MD [address] [place] [address] PCP - GeneralFamily Medicine12/03/23Team MemberRelationshipSpecialtyStart DateEnd Date Piter Cleary MD [address] [place] [address] PCP - GeneralFamily Medicine12/03/23Team MemberRelationshipSpecialtyStart DateEnd Date Piter Cleary MD [address] [place] [address] PCP - GeneralFamily Medicine12/03/23Team MemberRelationshipSpecialtyStart DateEnd Date Piter Cleary MD [address] [place] [address] PCP - GeneralFamily Medicine12/03/23Team MemberRelationshipSpecialtyStart DateEnd Date Piter Cleary MD [address] [place] [address] PCP - [facility]12/03/23 Piter Cleary MD [address] [place] [address] PCP - [place]06/04/24Team MemberRelationshipSpecialtyStart DateEnd Date Piter Cleary MD [address] [place] [address] PCP - [facility]12/03/23 Piter Cleary MD [address] [place] [address] PCP - [place]06/04/24Team MemberRelationshipSpecialtyStart DateEnd Date Piter Cleary MD [address] [place] [address] PCP - [facility]12/03/23 Piter Cleary MD [address] [place] [address] PCP - [place]06/04/24Team MemberRelationshipSpecialtyStart DateEnd Date Piter Cleary MD [address] [place] [address] PCP - [facility]12/03/23 Piter Cleary MD [address] [place] [address] PCP - Gregg YATES06/04/24Team MemberRelationshipSpecialtyStart DateEnd Date Piter Cleary MD [address] [place] [address] [facility] Piter Cleary MD [address] [place] [address] PCP - Gregg YATES06/04/24 Goals (unrecognized section and content) Goals may [...] BE BASED ON THE PRIMARY CLINICAL RECORDS. [facility]. provides no warranty or guarantee of the accuracy or completeness of information in this document.
--- OUTSIDE RECORDS SUMMARY | 2025-04-02 21:23 | XMS_ITS | Clinical Summary ---
Author Organization [facility] Address [address] [place] [address] Care Team Providers Care Laborer Yard Name Role Phone Unavailable Primary Care Provider Unavailabl e Social History Tobacco UseTypesPacks/DayYears UsedDateSmoking Tobacco: Never AssessedUT Safety & EnvironmentAnswerDate RecordedFear of Current or Ex-PartnerNot on file 07/26/2023Emotionally AbusedNot on file07/26/2023hysically AbusedNot on file 07/26/2023Sexually AbusedNot on file07/26/2023hysically or Sexually AbusedNot on file07/26/2023CommentsUnknownSex and Gender InformationValueDate RecordedSex Assigned at BirthNot on fileLegal FevMlqlst68/30/2022 12:42 AM EDT Gender IdentityNot on fileSexual OrientationNot on file Plan of Treatment Not on file
--- OUTSIDE RECORDS SUMMARY | 2025-04-02 21:24 | XMS_ITS | Clinical Summary ---
Author Organization [facility] Address [id number] [place] [address] Care Team Providers Care Multimedia Designer Name Role Phone Piter Duff MD Primary Care Provider [phone] Allergies Active AllergyReactionsCriticalityNoted DateCommentsCat DanderEye Swelling 06/15/2021 Medications * This document contains information received from the source organization and may not represent a complete record from that organization. MedicationSigDispense QuantityRefillsLast FilledStart DateEnd DateStatus PROAIR HFA 90 mcg/actuation inhaler Indications:chronic obstructive pulmonary diseaseInhale 2 puffs 4 (four) times a day Indications: chronic obstructive pulmonary disease. 04/16/2018Active lisinopril-hydroCHLOROthiazide (PRINZIDE,ZESTORETIC) 20-12.5 mg per tablet Take 1 tablet by mouth daily.Active omeprazole (PriLOSEC) 40 mg capsule Indications:gastroesophageal reflux diseaseTake 40 mg by mouth daily Indications: gastroesophageal reflux disease.Active fluticasone furoate-vilanteroL (BREO ELLIPTA) 200-25 mcg/dose blister with device Inhale 1 puff daily. 30 each 06/19/2021ctive ipratropium-albuteroL (DUO-NEB) 0.5 mg-3 mg(2.5 mg base)/3 mL nebulizer Indications:Cavitary lesion of lungInhale 3 mL by nebulization every 4 (four) hours as needed for wheezing. 60 mL 06/18/2021ctive furosemide (LASIX) 40 mg tablet Take 1 tablet (40 mg total) by mouth daily. 30 tablet 06/18/2021ctive Additional Information Patient not taking.Reported on 07/14/2021 Active Problems ProblemNoted DateDiagnosed DateAbscess of upper lobe of right lung without ngqrbcoyo58/04/2022OVID-19008/05/2021cute respiratory failure with hypoxia 2Cavitary lesion of lung06/15/2021 Overview (06/15/2021): Added automatically from request for surgery [id number] Resolved Problems ProblemNoted DateDiagnosed DateResolved DateAdjustment disorder with anxiety Immunizations ImmunizationAdministration DatesNext DueInfluenza, Im Trivalent Preservative 03/24/2021 Family History Medical HistoryRelationNameCommentsBipolar disorderMotherRelationNameStatus CommentsMother Social History Tobacco UseTypesPacks/DayYears UsedDateSmoking Tobacco: Every DayCigarettes Smokeless Tobacco: FormerAlcohol UseStandard Drinks/WeekCommentsYes0 (1 standard drink = 0.6 oz pure alcohol)rareChildcareAnswerDate RecordedChildcareUnknown 11/01/2018EmploymentAnswerDate RgglxehdVkgrsrbmoiGgbaife09/31/2019Purpose - Life AnswerDate RecordedPurpose and direction in yfpdWazdtmp36/11/2021 CommentsNoSex and Gender InformationValueDate RecordedSex Assigned at BirthNot on fileLegal CkhOjdydf19/06/2015 11:59 AM EDTGender IdentityNot on fileSexual OrientationNot on file Last Filed Vital Signs Vital SignReadingTime TakenCommentsBlood Gskxktal805/7203 9:51 AM EST Mqvex0653 9:51 AM AQGBtqpahnaiws94 ??C (96.8 ??F)08/04/2021 9:51 AM EST Respiratory Zwre257107/14/2021 9:00 AM ESTOxygen Yrysytgvhv54%08/04/2021 9:51 AM ESTInhaled Oxygen Concentration--Yfttsy57.8 kg (220 lb)07/14/2021 9:00 AM EST Yiehfi189.7 cm (5' 8 )07/14/2021 9:00 AM ESTBody Mass Index33.45007/14/2021 9:00 AM EST Plan of Treatment Health MaintenanceDue DateLast DoneCommentsDepression Ytsxwxaou76/01/1970Tobacco Wdcxlodxp04/01/1970Adult BMI Nymmuygpw75/01/1976DTaP,Tdap and Td Vaccines (1 - Tdap)1976Zoster (Shingles) Vaccine (1 of 2)10/03/2007Fall Risk Screening 2022Influenza Wofmlah19/ Medical Devices Not on file Insurance Advance Directives * Full Code (Latest Code Status on File) Date ActivatedDate InactivatedComments06/15/2021 2:23 AM06/18/2021 8:05 PM Care Teams Team MemberRelationshipSpecialtyStart DateEnd Date Piter Duff MD PCP - GeneralFamily Medicine07/11/18
--- OUTSIDE RECORDS SUMMARY | 2025-04-02 21:24 | XMS_ITS | Clinical Summary ---
Author Organization [facility] Address [address] [place] [address], [address] [place] [address] Care Team Providers Care Appointment Clerk Name Role Phone Unavailable Primary Care Provider Unavailabl e Social History Tobacco UseTypesPacks/DayYears UsedDateSmoking Tobacco: Never Assessed CommentsUnknownSex and Gender InformationValueDate RecordedSex Assigned at Not on fileLegal JffJtqskl21/12/2013 8:37 PM ESTGender IdentityNot on fileSexual OrientationNot on file Plan of Treatment Not on file
--- OUTSIDE RECORDS SUMMARY | 2025-04-02 21:24 | XMS_ITS | Clinical Summary ---
Author Organization [facility] Address [address] [place] [address] Care Team Providers Care Spinning Operator Name Role Phone Piter Duff MD Primary Care Provider [phone] Piter Duff MD Unavailable Allergies No known active allergies Medications MedicationSigDispense QuantityRefillsLast FilledStart DateEnd DateStatus albuterol HFA 90 mcg/act inhaler Inhale 2 puffs every 4 (four) hours if danfdh923Active omeprazole OTC (PriLOSEC OTC) 20 MG EC tablet Take 20 mg by mouth in the morning. Take before meals. Do not crush, chew, or split..Active triamcinolone (Kenalog) 0.5 % cream Indications:DermatitisApply topically 3 (three) times a day 30 g 4Active Trelegy Ellipta 200-62.5-25 MCG/ACT aerosol powder 1 puff 1 (one) time each day at the same time4Active lisinopril-hydroCHLOROthiazide 10-12.5 MG tablet Indications:Benign hypertensionTake 1 tablet by mouth Daily 90 tablet 5Active fluticasone (Flonase) 50 MCG/ACT nasal spray Indications:Seasonal allergic rhinitis due to pollenAdminister 2 sprays into each nostril Daily Shake gently. Before first use, prime pump. After use, clean tip and replace cap. 16 g 5Active Active Problems ProblemNoted DateDiagnosed UipmLopwfjiekxcdybk21/29/2025 Assessment & Plan (12/30/2024 2:18 PM EDT): Symptoms with position changes and possibly related to sinus symptoms. Add flonase and monitor. If persist will stop hydrochlorothiazide. Medicare annual wellness visit, qprnrirwny22/02/2025 Assessment & Plan (11/03/2024 12:15 PM EDT): Due for labs. Discussed proper diet and regular aerobic exercise. Need aerobic exercise 5-6 days a week for 30 minutes at a time. Smaller portions and limit total calories. Cologuard normal October 2022.Tetanus every 10 years. Advised not to smoke. Encounter for long-term current use of mqcefqlntg61/01/2024lass 1 obesity due to excess calories with serious comorbidity and body mass index (BMI) of 32.0 to 32.9 in adult12/03/2023 Assessment & Plan (11/03/2024 12:14 PM EDT): Weight loss indicated. SHAN (generalized anxiety disorder)12/03/2023 Assessment & Plan (06/05/2024 10:04 AM EST): Symptoms improved with wellbutrin and continue. Assessment & Plan (12/03/2023 1:57 PM EDT): Increased symptoms and refer for counseling. COPD (chronic obstructive pulmonary disease)06/12/2023 Assessment & Plan (11/03/2024 12:14 PM EDT): Breathing stable and continue trelegy. Follow up with escalator mechanic. Assessment & Plan (06/05/2024 10:04 AM EST): Breathing stable and continue trelegy. Refer to local escalator mechanic. Assessment & Plan (12/03/2023 1:57 PM EDT): Breathing stable and continue breo. Refer to local escalator mechanic. Assessment & Plan (06/12/2023 2:15 PM EST): Breathing stable and continue breo. Refer to local escalator mechanic. Seasonal allergic rhinitis due to fatdqr9106/12/2023 Assessment & Plan (12/30/2024 2:18 PM EDT): Increased symptoms and add flonase. Benign zcpnlgwzigyc04/02/2024 Assessment & Plan (11/03/2024 12:14 PM EDT): BP controlled and monitor PRN. Assessment & Plan (06/05/2024 10:04 AM EST): BP controlled and monitor PRN. Assessment & Plan (12/03/2023 1:56 PM EDT): BP controlled and monitor PRN. Assessment & Plan (06/12/2023 2:14 PM EST): BP elevated but previously controlled and monitor PRN. Lower extremity edema06/05/2023 Assessment & Plan (06/05/2024 10:05 AM EST): Edema stable and elevate legs PRN. Assessment & Plan (12/03/2023 1:57 PM EDT): Edema stable and elevate legs PRN. Riudigrqtsqe60/02/2024Gastroesophageal reflux qdngpzg5306/05/2023 Assessment & Plan (06/05/2024 10:05 AM EST): Symptoms controlled with medication and continue. Assessment & Plan (12/03/2023 1:57 PM EDT): Symptoms controlled with medication and continue. Assessment & Plan (06/12/2023 2:15 PM EST): Symptoms controlled with medication and continue. Pre-czxjvhem86/02/2024 Resolved Problems ProblemNoted DateDiagnosed DateResolved DateRSV (respiratory syncytial virus pneumonia)/06/2023 Assessment & Plan (06/12/2023 2:15 PM EST): Recent infection and improving. Monitor. COPD with acute vkmdmvvtuhcz76 Assessment & Plan (06/12/2023 2:15 PM EST): Recent exacerbation but improved. Complete medication as directed. Immunizations ImmunizationAdministration DatesNext DueInfluenza, High Dose Seasonal, Preservative Free02/15/2024neumococcal Conjugate PCV 4RSV, recombinant, protein subunit RSVpreF, adjuvant reconstitu, 120mcg/0.5mL, PF (Arexvy)03/03/2024 Family History Medical HistoryRelationNameCommentsHeart diseaseFatherHypertensionFatherOther FatherCerebrovascular DiseaseCancerMotherColon cancerRelationNameStatusComments FatherDeceasedMother Social History Tobacco UseTypesPacks/DayYears UsedDateSmoking Tobacco: FormerCigarettes0.530 Tobacco Cessation:Counseling Given: Not Answered PHQ-2AnswerDate RecordedPatient Health Questionnaire-2 Ldfmm986 CommentsUnknownSex and Gender InformationValueDate RecordedSex Assigned at Not on fileLegal ShyHcuxkq72/11/2023 8:07 AM ESTGender IdentityNot on fileSexual OrientationNot on file Last Filed Vital Signs Vital SignReadingTime TakenCommentsBlood Zufjnict555/8412/30/2024 1:44 PM EDT Qlysn762312/30/2024 1:44 PM TKPNgawzhxurmq14.3 ??C (97.3 ??F)12/30/2024 1:44 PM EDTRespiratory Ttgw968012/30/2024 1:44 PM EDTOxygen Yyudrxujwg17%12/30/2024 1:44 PM EDTInhaled Oxygen Concentration--Zjvtyf77.3 kg (208 lb)12/30/2024 1:44 PM EDT Ablemy401.7 cm (5' 8 )12/30/2024 1:44 PM EDTBody Mass Index31.63012/30/2024 1:44 PM EDT Plan of Treatment Health MaintenanceDue DateLast DoneCommentsCT Hsymotvymydo78/01/1958Colonoscopy 1957FIT1957FOBT1957 7343Chcqobikbbazy65/01/1958Influenza Vaccine (#1)/2024, 04/11/2023, 03/24/2021olorectal Cancer Screening 10/23/2025FIT-DNA6010/23/2022Medicare Annual Wellness (AWV)11/03/2025 11/03/2024, 10/31/2023, 10/10/2022neumococcal Vaccine: 65+ YearsCompleted 05/09/2024MammogramDiscontinued Insurance Care Teams Team MemberRelationshipSpecialtyStart DateEnd Date Piter Dfuf MD [facility] - [facility] Piter Duff MD [address] [facility] [place] [address] PCP - Gregg YATES06/04/24
--- OUTSIDE RECORDS SUMMARY | 2025-04-02 21:24 | XMS_ITS | Patient Health Record ---
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 Phone Piter Duff MD Primary Care Provider Unavail Cindi Mayberry Unavailable [phone] [facility] Unavailable [phone] Allergies Allergen (clinical drug ingredient) Drug/Non Drug Allergy documented on EMR Reaction Allergy Type Onset Date Status Cat dander Cats (uncoded) Unknown Allergy ActiveMolds (uncoded)UnknownAllergyActivePerfumePerfume (uncoded)UnknownAllergy Active Results Component Value Reference Range Notes CT Chest Low Dose for Screen ing* Reviewed date:07/07/2024 08:04:55 AM Interpretation: Performing Lab: Notes/Report: CT lung screening low-dose Reviewed date:07/08/2024 07:35:03 AM Interpretation: Performing Lab: Notes/Report: Source Facility: [place] [address] [place] [address] CT Scan Report Signed Patient: MIRANDA GILLILAND MR#: [id number] : 1955 Acct:[id number] Age/Sex: 68 / F ADM Date: 07/04/24 Loc: CT Attending Dr: Oxana New D.O. Ordering Physician: [facility]ana New D.O. Date of Service: 07/04/24 Procedure(s): CT lung screening low-dose Accession Number(s): [id number] cc: Piter Duff M.D. The [address] [address] Patient Name: MIRANDA GILLILAND MRN: [id number] date: 1955 Sex: F Assigned Patient Location: CT Current Patient Location: CT Accession/Order Number: [id number] Exam Date: 07/04/2024 08:42 Report Date: 07/04/2024 [...] M.D. 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: Reason For Referral No Information Medications Medication SIG (Take, Route, Frequency, Duration) Notes Start Date End Date Status Joanne 180 mg 1 tablet Oral QD ActiveVitamin C 500 mg1 capsule QD ActiveVitamin DActive Ibuprofen 200 lzflgstac81/01/1900ActiveVitamin E 400 unit1 capsule QD ActiveLisinopril-hydroCHLOROthiazide 20-12.5 MG1 tablet Orally Once a day; Duration: 30 day(s)ActiveMagnesiumActiveMultivitamintablet Oral Active [place] 3 350-400 mg1 capsule Oral QD ActivePotassiumActivePreserVision AREDS -as directed OrallyActiveAlbuterol Sulfate HFA 108 (90 Base) MCG/ACT2 puffs as needed for SOB Inhalation Q4H; Duration: 90 daysActiveAlbuterol Sulfate (2.5 MG/3ML) 0.083%3mL Inhalation QID; Duration: 3 days01/29/2024ctiveTrelegy Ellipta 200-62.5-25 MCG/ACT 1 puff Inhalation Once a day; Duration: 90 days Rinse after use 01/29/2024ctive Immunizations Vaccine Route Administration Date Status Comme nts Arexvy Unknown 03/03/2024 Administered Flu, Fluad (85530) 65 yrs + High Dose Seasonal (0326-9992)Udruffx1402/15/2024 AdministeredFlu, Fluad (84438) 65 yrs+, single-dose syringe (1210-2878)Unknown 04/11/2023dministeredPneumococcal (Prevnar 20)Hipdoev1205/09/2024dministered Social History Tobacco Use: Social History Observation Description Date Details (start date - stop date) Current Smoker NA - NA Tobacco Control (Standard) Question Answer Notes Tobacco use: Current every day smoker Additional Findings: Tobacco userLight cigarette smoker (1-9 cigs/day) Problems Problem Type SNOMED Code ICD Code Onset Dates Problem Status W/U Status Risk Notes Problem Centrilobular emphysema (43130450) Centri lobular emphysema (J43.2) ActiveconfirmedProblemUncomplicated moderate persistent asthma (649799309) Moderate persistent asthma, uncomplicated (J45.40)ActiveconfirmedProblemLong- term current use of inhaled steroid (690380598)prison (current) use of inhaled steroids (Z79.51)ActiveconfirmedProblemAllergic rhinitis (04337430) Allergic rhinitis (J30.9)ActiveconfirmedProblemMental disorder caused by drug (352217076)Cigarette nicotine dependence with nicotine-induced disorder (F17.219)ActiveconfirmedProblemHistory of pulmonary embolus (173035755)History of pulmonary embolism (Z86.711)ActiveconfirmedProblemHistory of respiratory disease (708824780)History of lung abscess (Z87.09)ActiveconfirmedProblem Multiple pulmonary nodules (210100891)Multiple pulmonary nodules (R91.8)Active confirmedProblemUncomplicated moderate persistent asthma (391172092)Moderate persistent asthma in adult without complication (J45.40)ActiveconfirmedProblem 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)Activeconfirmed Vital Signs Heart Rate 86 /min 10/28/2024 Nibxofxcsaw96.8 degrees Cridqlflsl37/27/2025Respiratory Rate18 /min10/28/2024 Blood pressure gxrziwplm28 mm Hg10/28/20248771Bzlhqxpq56 %10/28/20242551Axcjay14 in 10/28/2024lood pressure qiqzzync228 mm Hg10/28/20247769Vycxza105.8 lbs10/28/2024MI 32.5 kg/m210/28/2024 Procedures Procedure Date Ordered Date Performed Result Body Sit e Smoking/Tobacco Counseling 3 min up to 10-performed 10/28/2024 10/28/2024 N/A Encounters Encounter Location Date Provider Diagnosis [facility] [address] [place] [address] 04/30/2024 [facility] Moderate persistent asthma in adult without complication J45.40 ; Centrilobular emphysema J43.2 ; Cigarette nicotine dependence with nicotine-induced disorder F17.219 ; Encounter for immunization Z23 ; Encounter for screening for malignant neoplasm of respiratory organs Z12.2 ; Azygos lobe Q33.1 ; History of lung abscess Z87.09 ; History of pulmonary embolism Z86.711 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.51 [facility] [address] [place] [address] 10/28/2024 [facility] Moderate persistent asthma in adult without complication J45.40 ; Centrilobular emphysema J43.2 ; Cigarette nicotine dependence with nicotine-induced disorder F17.219 ; Multiple pulmonary nodules R91.8 ; Encounter for screening for malignant neoplasm of respiratory organs Z12.2 ; Azygos lobe Q33.1 ; History of lung abscess Z87.09 ; History of pulmonary embolism Z86.711 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 04/30/2024Moderate persistent asthma in adult without complication (ICD-10 - J45.40) Prior treatments: Trelegy > Breo greater than Dulera, Symbicort; albuterol, Primatene Mist Patient has had excellent symptom control with Trelegy, unfortunately is quite expensive. She did pay dfz-ws-nebvml the nearly $500 for 3-month supply. She does want a look into any alternatives thatI mentioned last visit. I stated that she can look into having Breo plus Spiriva Respimat 1.25, or even Incruse (which would then literally equal Trelegy). I wrote these names down for her and she states she is going to contact her insurance about coverage. She does have a several month supply of Trelegy left, and that gives us some wiggle room to figure out a more affordable option for her. 10/28/2024entrilobular emphysema (ICD-10 - J43.2) Asthma-COPD overlap. 10/28/2024Moderate persistent asthma in adult without complication (ICD-10 - J45.40) Prior treatments: Trelegy > Breo greater than Dulera, Symbicort; albuterol, Primatene Mist Trelegy is helping, but continues to require albuterol HFA 3-4 times a day, and when really bad, using the nebulizer. Next step after this would be to look into biologics, but she has never had an elevated eosinophil count, so that eliminates completely Nucala and Fasenra. She does not feel she requires prednisone, so no to Dupixent. Ohtuvayre is available for her COPD component. Explained the easiest and cheapest option is to quit smoking - she is near that point with the #/day she smokes. Sheelected to remain on Trelegy and work at smoking cessation. Mrbf-ug-wfji encounter performed with the patient to document continued need for a nebulizer with nebulized medications. -Current nebulized medications: Albuterol -Symptom control: Improved with use -Reported side or adverse effects: Denies -Recommendations: Renew, replace, reorder nebulizer and supplies as needed. 10/28/2024igarette nicotine dependence with nicotine-induced disorder (ICD-10 - F17.219) Discussed smoking yet cessation again for 4 minutes. Wellbutrin XL 300mg caused jitters, no issues at 150mg strength. Smoking 1/4ppd or less. She is asking about stopping Wellbutrin altogether. This is not my recommendation since she is still trying to stop smoking, but she was fairly committed to this. As this is her choice, will stop Wellbutrin XL. I brought up alternatives such as nicotine replacement therapy. She has dentures, so did not want the gum. With the amount of cigarettes she is smoking, even step 3 7mg patch may be too much. Discussed her breathing may never improve until she completely stops smoking. She elected to just work on it on her own at this time. 04/30/2024igarette nicotine dependence with nicotine-induced disorder (ICD-10 - F17.219) Discussed smoking cessation again. She has had benefit from Wellbutrin XL 150, which she has been able to decrease cigarette use to 1 pack lasting for about 5 days. She asked about a higher dose. We started at the lower dose to see it was tolerable, and she states she had no adverse effects. She just had a 150mg prescription filled, so I suggested she double up on the dose for 1-2 weeks to see how she is. If she tolerates it, then I will send in 300mg dose. She was advised to continue working on smoking cessation. 04/30/2024Encounter for immunization (ICD-10 - Z23) Discussed pulmonary-related vaccines today which involved shared clinical decision-making with the patient. -Influenza: Patient is up-to-date. -Pneumococcal: Reviewed the patient's pneumococcal vaccination record. The CDC currently recommendsPCV-20 vaccination regardless of past pneumococcal vaccinations.Patient voiced agreement to proceedwith vaccine. Prevnar 20 was sent into her pharmacy. -Respiratory Syncytial Virus (RSV): Arexvy was filled this morning. -Tdap: Last Tdap was 5 years ago, so she has coverage for another 5 years. -COVID-19: This is the most contentious vaccine. There are case reports of serious adverse events with the COVID-19 vaccines. There are risks with david COVID-19 as well, with the potential fordeath. I explained that the CDC recommends vaccination with boosters and I deferred the choice to the patient. 10/28/2024Multiple pulmonary nodules (ICD-10 - R91.8) Unchanged nodules, largest @ 2.9mm from 07/04/2024 compared to 06/06/2023. Next LDCT due 06/2025. 04/30/2024Encounter for screening for malignant neoplasm of respiratory organs (ICD-10 - Z12.2) LDCT scheduled for June 2024. 10/28/2024Encounter for screening for malignant neoplasm of respiratory organs (ICD-10 - Z12.2) ~1ppd x 35 years Low-dose CT (LDCT) was recommended for lung cancer screening. The patient meets criteria including age 50-77, a smoking history of at least 20 pack-years, is currently smoking or has ceased smoking within the past 15 years, and has no signs or symptoms of lung cancer. Shared decision making performed with the patient. After LDCT has been completed, will review report and/or imaging and provide appropriate recommendations for the patient, including additional follow up if needed. Patient was counseled on smoking cessation/continued tobacco abstinence. LDCT due 06/2025. 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 10/28/2024zygos lobe (ICD-10 - Q33.1) Incidental finding. 04/30/2024History of lung abscess (ICD-10 - Z87.09) June 2021. Attributed to MSSA and presumptive anaerobic bacteria from aspiration. She did not require thoracotomy. Follow-up chest CT in 06/05/2023 shows resolution of the right upper lobe abscess with remnant scarring. No further follow-up is required. 10/28/2024History of lung abscess (ICD-10 - Z87.09) June 2021. Attributed to MSSA and presumptive anaerobic bacteria from aspiration. She did not require thoracotomy. Completely resolved on subsequent imaging. 10/28/2024History of pulmonary embolism (ICD-10 - Z86.711)04/30/2024History of pulmonary embolism (ICD-10 - Z86.711)04/30/2024Long term (current) use of inhaled steroids (ICD-10 - Z79.51) Patient was counseled to rinse & gargle with water after inhaled corticosteroid use. 10/28/2024Long term (current) use of inhaled steroids (ICD-10 - Z79.51) Patient was counseled to rinse & gargle with water after inhaled corticosteroid use. 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
[2025-04-02 21:29] LABS: Hematocrit 40.5 % (36.0-48.0); Hemoglobin 13.9 g/dL (12.0-16.0); Immature Granulocytes Abs Auto 0.00 10^3/uL (0.00-0.03); Immature Granulocytes Pct Auto 0.0 % (0.0-0.5); Lymphocytes Absolute Auto 1.6 10^3/uL (1.2-3.8); Mean Corpuscular HGB Conc 34.3 g/dL (29.9-35.2); Mean Corpuscular Hemoglobin 34.2 pg (26.7-34.0); Mean Corpuscular Volume 99.8 fL (81.0-99.0); Platelet Count 151 10^3/uL (150-450); Red Blood Count 4.06 10^6/uL (4.20-5.40); White Blood Count 3.7 10^3/uL (4.0-11.0)
[2025-04-02] MEDS: METHYLPREDNISOLONE SOD SUCC PF 125 MG/2 ML VIAL IVP (21:40)
[2025-04-02 21:43] LABS: SARS-CoV-2 Ag NEGATIVE (NEGATIVE)
[2025-04-02 21:52] LABS: Alanine Aminotransferase 22 U/L (14-59); Albumin Globulin Ratio 1.1; Albumin Level 3.5 g/dL (3.4-5.0); Alkaline Phosphatase 87 U/L (46-116); Anion Gap 12.8; Aspartate Amino Transferase 21 U/L (15-37); Blood Urea Nitrogen 13.0 mg/dL (7.0-18.0); Calcium 8.8 mg/dL (8.5-10.1); Carbon Dioxide 30.1 mmol/L (21.0-32.0); Chloride 102 mmol/L (98-107); Estimated GFR (African America >60 (>=60 mL/min/1.73m^2); Estimated GFR (Non-African Ame >60 (>=60 mL/min/1.73m^2); Globulin 3.1 g/dL; Glucose 111 mg/dL (74-106); NT Pro B Type Natriuretic Pept 55.0 pg/mL (<=900.0); Potassium 3.9 mmol/L (3.5-5.1); Sodium 141 mmol/L (136-145); Total Protein 6.6 g/dL (6.4-8.2)
== END 2025-04-02 22:44 | disposition home or self-care (01) ==
PROVIDERS: Nurse Practitioner Family; Emergency Provider Internal Medicine; PCP Family Medicine
DX: J44.1 Chronic obstructive pulmonary disease with (acute) exacerbation (principal); F17.200 Nicotine dependence, unspecified, uncomplicated
CPT/HCPCS: 36415; 71045; 80053; 83880; 84484; 85025; 87804; 87811; 93005; 94640; 96374; 99285; J2919

== ENCOUNTER 2025-04-03 15:47 | Inpatient (IN) | payer MEDICARE, SELFPAY ==
--- OUTSIDE RECORDS SUMMARY | 2012-10-23 06:48 | XMS_ITS | Continuity of Care Document ---
Author Organization [employer] [facility] Address [address] [facility] [place] [address] Phone Care Team Providers Care Choir Accompanist Name Role Phone Unavailable Unavailable Unavailable Allergies, Adverse Reactions, Alerts Substance Reaction Status Criticality No Known allergies Medications Medication Instructions Dosage Effective Dates (start - stop) Status Comments ProAir HFA 90 mcg/actuation Aerosol Inhaler inhale 2 puff by inhalation route 2 times every day as needed 2 puff - Active CoQ-10 100 mg capsule - Active Trilipix 135 mg capsule,delayed release take 1 capsule by oral route every day - Active Joanne 180 mg tablet take 1 tablet by oral route every day - Active Crestor 20 mg tablet take 1 tablet by oral route every day 20 MG - Active montelukast 10 mg tablet take [...] Diagnoses Date Provider Providers Copied on Encounter [facility] [employer] [facility], [address] [place] [address] [address], [place], [place], [id number] , tel:[phone] [facility] Hypertension, UnspecifiedAsth maOsteoarthrosi s, unspecified whether generalized or localized, involving unspecified siteCAD, UnspecifiedOthe r malignant neoplasm of unspecified siteDiabetes Mellitus Type 2, UncomplicatedGE RDRenal Insufficiency, AcuteUnspecifie d disorder of liverUnspecifie d disorder of thyroidVenous embolism and thrombosis of unspecified deep vessels of lower extremityAllerg ic rhinitis, cause unspecified No Information OFFICE/OUTPA TIENT VISIT, [facility] [employer] [facility], [address] [place] [address] [address], [place], [place], [id number] , [place] [phone] [facility] No Information 3 Corporate Physician. [address] [place] [address] [address], [place], [place], [id number], [place]. tel:[phone] Referring Provider: Physician , [address] [place] [address] [address], [place], [address] . tel:[phone] OFFICE/OUTPA TIENT VISIT, [facility] [employer] [facility], [address] [place] [address] B, [place], [place], [id number] , [place] [phone] [facility] No Information 2 Corporate Physician. [address] [place] [address] B, [place], [place], [id number], [place]. tel:[phone] Referring Provider: Physician , [address] [place] [address] B, [place], [address] . tel:[phone] OFFICE/OUTPA TIENT VISIT, [facility], [address] [place] [address] [address], [place], [place], [id number] , tel:[phone] [facility] No Information 2 1 2 Corporate Physician. [address] [place] [address] [address], [place], [place], [id number], [place]. tel:[phone] Referring Provider: Physician , [address] [place] [address] B, [place], [address] . tel:[phone] OFFICE/OUTPA TIENT VISIT, [facility], [address] [place] [address] [address], [place], [place], [id number] , tel:[phone] [facility] No Information 2 Corporate Physician. [address] [place] [address] B, [place], [place], [id number], [place]. tel:[phone] Referring Provider: Physician , [address] [place] [address] [address], [place], [address] . tel:[phone] Family History Family Member Type Diagnosis Age At Onset No Information Payers Payer name Insurance type Covered constitution party ID Vinny samaniego(s) [facility] [id number] Social History Type Description Quantity Date Captured [...]
--- OUTSIDE RECORDS SUMMARY | 2024-07-21 05:00 | XMS_ITS ---
Author Organization [facility] in [place] Address [address] [place] [address] Care Team Providers Care Concrete Conveyor Operator Name Role Phone Omega SPENCER, Piter Primary Care Provider Unavailab Cindi Mayberry Unavailable [phone] REASON FOR VISIT 6-12m Asthma f/u Encounters Encounter Location Date Provider Diagnosis [facility] [address] [place] [address] [address] [place] [address] 07/21/2024 Cindi Mccullough Plan Of Treatment No Information Progress Notes * KATHRODYXuan ADOB:06/1955 (69 yo F)Acc No.[id number]:07/21/2024 UNLOCKED PROGRESS NOTE Progress Note Patient: Xuan PERRY :?Cindi Mccullough NPDOB:1955???Age:68 Y ???Sex:FemaleDate:07/21/2024Phone:[phone]:[address] [place], [place]-[address]Pcp:Piter Duff MD Subjective: * Chief Complaints: * 1 . 6-12m Asthma f/u. * Medical History: Objective: * Vitals: Assessment: Plan: * Treatment: * * Electronic signature of Cindi Mccullough NP, [id number] on 04/03/2025 at 04:30 PM EDTSign off status: PendingVisit Status:?CANC (Cancelled) * Provider: Jez Mccullough NP Date: 0 07/21/2024 Generated for Printing/Faxing/eTransmitting on:?04/03/2025 04:30 PM EDT
[2025-04-03] VITALS (20 sets, daily range): BP systolic 154–167; BP diastolic 90–101; PULSE 88–120; TEMP 36.9–37; O2SAT 89–98; BMI 33.5; BMI 31.0
--- NOTE | 2025-04-03 16:04 | ECG_ITS ---
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 Measurements Intervals [place] Rate: 111 P: 80 DE: 156 QRS: 81 QRSD: 90 T: 77 QT: 328 QTc: 394 Interpretive Statements 1120 Sinus tachycardia 0102 ARTIFACT PRESENT 9140 abnormal rhythm ECG Compared to ECG 04/02/2025 20:56:37 Sinus rhythm no longer present Electronically Signed On 04-03-2025 18:08:44 EDT by KASSI AREVALO M.D.
--- NOTE | 2025-04-03 16:05 | XR_ITS ---
The [address] [address] Patient Name: MIRANDA GILLILAND MRN: [id number] date: 1955 Sex: F Assigned Patient Location: ER Current Patient Location: ED.MAIN Accession/Order Number: [id number] Exam Date: 04/03/2025 16:55 Report Date: 04/03/2025 18:05 At the request of: MALAIKA RAMIREZ MD Procedure: XR chest 1V PA CHEST: CLINICAL HISTORY: sob COMPARISON: 04/02/2025 Unremarkable cardiomediastinal silhouette. Lungs clear. No effusion or pneumothorax. XR/XR chest 1V IMPRESSION: NEGATIVE FOR ACUTE PLEURAL-PARENCHYMAL DISEASE Impression dictated by: Jemal Serra M.D. 04/03/2025 6:05 PM Dictation Location: [place] [address] Electronically authenticated by: [id number] Y Date: 04/03/2025 18:05
[2025-04-03 16:18] LABS: Hematocrit 43.9 % (36.0-48.0); Hemoglobin 15.3 g/dL (12.0-16.0); Immature Granulocytes Abs Auto 0.03 10^3/uL (0.00-0.03); Immature Granulocytes Pct Auto 0.4 % (0.0-0.5); Lymphocytes Absolute Auto 0.9 10^3/uL (1.2-3.8); Mean Corpuscular HGB Conc 34.9 g/dL (29.9-35.2); Mean Corpuscular Hemoglobin 33.8 pg (26.7-34.0); Mean Corpuscular Volume 97.1 fL (81.0-99.0); Platelet Count 186 10^3/uL (150-450); Red Blood Count 4.52 10^6/uL (4.20-5.40); White Blood Count 8.5 10^3/uL (4.0-11.0)
[2025-04-03 16:22] LABS: ABG PCO2 39.7 mmHg (35.0-45.0); Allen Test POSITIVE (POSITIVE); HCO3 ABG 26.0 mmol/L (22.0-26.0); Oxygen Saturation ABG 98.2 %; PO2 ABG 95.5 mmHg (80.0-100.0)
[2025-04-03 16:23] LABS: Liters per Minute 2L; O2 Mode NC; Puncture Site RR
[2025-04-03] MEDS: IPRATROPIUM/ALBUTEROL SULFATE 3 ML AMPUL.NEB IH ×2 (16:26→18:48)
--- OUTSIDE RECORDS SUMMARY | 2025-04-03 16:30 | XMS_ITS | Clinical Summary ---
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 Role Phone Unavailable Primary Care Provider Unavailabl e Social History Tobacco UseTypesPacks/DayYears UsedDateSmoking Tobacco: Never AssessedUT Safety & EnvironmentAnswerDate RecordedFear of Current or Ex-PartnerNot on file 07/26/2023Emotionally AbusedNot on file07/26/2023hysically AbusedNot on file 07/26/2023Sexually AbusedNot on file07/26/2023hysically or Sexually AbusedNot on file07/26/2023CommentsUnknownSex and Gender InformationValueDate RecordedSex Assigned at BirthNot on fileLegal DzzYsvbxm52/30/2022 12:42 AM EDT Gender IdentityNot on fileSexual OrientationNot on file Plan of Treatment Not on file
--- OUTSIDE RECORDS SUMMARY | 2025-04-03 16:31 | XMS_ITS | CCD ---
Author Organization [facility] Care Team Providers Care Beater Out Leveling Machine Name Role Phone TORRES, DR REAGAN Vance [...] Unavailable Medications Current Medications MedicationDrug Class(es)DatesSig (Normalized)Sig (Original)[id number] 200 actuat albuterol 0.09 mg/actuat metered dose inhaler (16 sources)beta2-Adrenergic AgonistStart: 27-95-3937Kdkfxtjbg Sulfate Active 1 PUFF INHALATION every 6 to 8 hours January 06, 2024 12:00amStart: 78-85-1213nnxs 2 puff(s) by inhalation every four hoursalbuterol HFA 90 mcg/act inhaler Inhale 2 puffs every 4 (four) hours if needed 06/03/2023 ActiveStart: 88-52-0256wecy 2 puff(s) by inhalation every four to six hours as neededAlbuterol Sulfate HFA 108 (90 Base) MCG/ACT 2 puffs as needed Inhalation every 4-6 hours for 14 days May, Activetake 2 puff(s) by inhalation every four hours as neededVentolin HFA 108 (90 Base) MCG/ACT 2 puffs as needed Inhalation every 4 hrs Gyadrv52 hr buPROPion hydrochloride 150 mg extended release oral tablet (6 sources)Aminoketone End: 11-00-1611tbrt 1 tablet by mouth once dailybuPROPion XL (Wellbutrin XL) 150 MG 24 hr tablet Take 150 mg by mouth Daily 11/03/2024 Discontinued cholecalciferol 0.05 mg oral capsule (1 source)Vitamin DStart: 70-68-1277vyos 50 ug by mouth once daily Cholecalciferol (Vitamin D3) Active 50 MCG PO Daily January 06, 2024 12:00am dextromethorphan hydrobromide 1.5 mg/ml / pyrilamine maleate 1.5 mg/ml oral solution (1 source)Uncompetitive G-ewsfaj-R-aspartate Receptor Antagonist, Sigma-1 AgonistStart: 69-55-1871rakf 10 mL by mouth every eight hoursCapron DM 7.5-7.5 MG/5ML 10 mL Orally every 8 hours for 5 days May, Activefluticasone propionate 0.05 mg/actuat metered dose nasal spray (2 sources)CorticosteroidStart: 17-13-3121uqko 2 spray(s) nasal route once daily fluticasone (Flonase) 50 MCG/ACT nasal spray Indications: Seasonal allergic rhinitis due to pollen Administer 2 sprays into each nostril Daily Shake gently. Before first use, prime pump. After use, clean tip and replace cap. 16 g 2 12/30/2024 ActiveFluticasone Furoate-Vilanterol (6 sources)Corticosteroid, beta2-Adrenergic AgonistStart: 72-96-8571Seywsrdldgy Furoate-Vilanterol (Breo Ellipta) 200-25 mcg/dose blister with device Active 1 INH INHALATION Daily January 06, 2024 12:00amStart: 03-05-2023 End: 66-56-5197obsa 1 puff(s) by inhalation in the morningBreo Ellipta 200-25 MCG/ACT aerosol powder Inhale 1 puff in the morning and 1 puff before bedtime. 1 06/05/2024 Wxgjegfyxssi26 actuat formoterol fumarate 0.005 mg/actuat / mometasone furoate 0.2 mg/actuat metered dose inhaler (1 source)Corticosteroid, beta2-Adrenergic Agonisttake 2 puff(s) by inhalation twice dailyDulera 200-5 MCG/ACT 2 puffs Inhalation Twice a day Active hydroCHLOROthiazide 12.5 mg / lisinopril 10 mg oral tablet (16 sources)Thiazide Diuretic, Angiotensin Converting Enzyme InhibitorStart: 96-17-8537tsws 1 tablet by mouth once dailyLisinopril-Hydrochlorothiazide Active 1 TAB PO Daily January 06, 2024 12:00amStart: 10-16-2023 End: 47-58-9656cpge 1 tablet by mouth once dailylisinopril-hydroCHLOROthiazide 10-12.5 MG tablet Indications: Benign hypertension Take 1 tablet by mouth Daily 90 tablet 3 11/03/2024 Activeibuprofen 200 mg oral tablet (1 source)Nonsteroidal Anti-inflammatory DrugStart: 13-63-6210wznp 200 mg by mouth every six hoursIbuprofen Active 200 MG PO Every 6 hours January 06, 2024 12:00amlisinopril 20 mg oral tablet (1 source)Angiotensin Converting Enzyme Inhibitortake 1 tablet by mouth every twenty-four hoursLisinopril 20 MG 1 tablet Orally Once a day Activemagnesium oxide 250 mg oral tablet (1 source)Start: 51-37-8202xdcc 250 mg by mouth once dailyMagnesium Oxide Active 250 MG PO Daily January 06, 2024 12:00ammethylPREDNISolone 4 mg oral tablet (1 source)CorticosteroidStart: 97-21-6974hbwdvcKYJGZGTnlcam 4 MG as directed Orally for May, ActiveMultivitamin (Daily Multi-Vitamin) tablet (1 source)Start: 93-67-5139dxhf 1 tablet by mouth once dailyMultivitamin (Daily Multi-Vitamin) tablet Active 1 TAB PO Daily January 06, 2024 12:00amomeprazole 20 mg delayed release oral tablet (13 sources)Proton Pump Inhibitortake 1 tablet by mouth before mealtime omeprazole OTC (PriLOSEC OTC) 20 MG EC tablet Take 20 mg by mouth in the morning. Take before meals. Do not crush, chew, or split.. Activepolymyxin b 16564 unt/ml / trimethoprim 1 mg/ml ophthalmic solution (1 source)Dihydrofolate Reductase Inhibitor Antibacterial, Polymyxin-class AntibacterialStart: 61-78-0190Lemparjxc B Sulf-Trimethoprim Active 1 DROPS OPHTHALMIC Every three hours 10 January 06, 2024 12:00am Apply 1 drop in each eye every 3 hours while awake, do not exceed 6 doses in a 24 hr periodpotassium citrate 99 mg oral tablet (1 source)Start: 62-32-3280zyjx 99 mg by mouth twice dailyPotassium Citrate Active 99 MG PO Twice daily January 06, 2024 12:00amTrelegy Ellipta 200-62.5-25 MCG/ACT aerosol powder (10 sources)Start: 03-44-3565Mshmsqz Ellipta 200-62.5-25 MCG/ACT aerosol powder 1 puff 1 (one) time each day at the same time 01/29/2024 Activetriamcinolone acetonide 5 mg/ml topical cream (14 sources)CorticosteroidStart: 25-70-1602ouhhbctfskcnv (Kenalog) 0.5 % cream Indications: Dermatitis Apply topically 3 (three) times a day 30 g 1 12/03/2023 ActiveVitamin B Complex (1 source)Start: 54-84-2704yyaa 1 tablet by mouth once dailyVitamin B Complex Active 1 TAB PO Daily January 06, 2024 12:00amVitamins A,C,P-Ljkt-Mlfkxe (Preservision Areds) 4,296 mcg-226 mg-90 mg capsule (1 source)Start: 45-39-4840yyme 1 capsule by mouth onceVitamins A,C,T-Zxuu-Zacwri (Preservision Areds) 4,296 mcg-226 mg-90 mg capsule Active 1 CAP PO OnceAugust 2023 12:00am Completed/Discontinued Medications MedicationDrug Class(es)DatesSig (Normalized)Sig (Original)Dexamethasone (1 source)CorticosteroidStart: 74-50-0319SLRFKCCKNRHPV May, 1.5 mg nitrofurantoin, macrocrystals 25 mg / nitrofurantoin, monohydrate 75 mg oral capsule (1 source)Nitrofuran AntibacterialStart: 43-54-5139uyyk 1 capsule by mouth every twelve hoursMacrobid 100 MG 1 capsule with food Orally every 12 hrs for 7 day(s) May, Not-Taking/PRNphenazopyridine hydrochloride 200 mg oral tablet (1 source)Start: 48-19-2864apqk 1 tablet by mouth every eight hoursPyridium 200 MG 1 tablet after meals Orally Three times a day for 2 day(s) May, Not-Taking/PRN Problems Active Problems Problem ClassificationProblemDateDocumented DateEpisodic/ChronicAnxiety disorders (16 sources)Generalized anxiety disorder; Translations: [Generalized anxiety disorder]Onset: 566132-79-0143JwkdimsHbsoti (3 sources)Mild intermittent asthma, uncomplicated; Translations: [Mild intermittent asthma]Onset: 21-68-8240EtawjpyBscdjeh obstructive pulmonary disease and bronchiectasis (20 sources)Centrilobular emphysema; Translations: [Chronic obstructive lung disease]Onset: 06-22-2021 Resolved: 700236-67-9347HfbktviSycrydlwlf associated with dizziness or vertigo (4 sources)Lightheadedness; Translations: [Dizziness and giddiness]Onset: 242719-79-1694IdgpfejfDsrhzaiti of lipid metabolism (15 sources)Dyslipidemia; Translations: [Hyperlipidemia, unspecified]Onset: 710103-60-8055TbcltzbJ Codes: Adverse effects of medical drugs (1 source)Adverse effect of glucocorticoids and synthetic analogues, initial encounter; Translations: [ADVRS EFF GLUCOCORT SYN ANALOG INIT]Onset: 06-22-2021 EpisodicEsophageal disorders (16 sources)Gastro-esophageal reflux disease without esophagitis; Translations: [Gastroesophageal reflux disease]Onset: 779944-68-2732TjsbmasMrkmtgsov hypertension (17 sources)Benign hypertension; Translations: [Essential (primary) hypertension]Onset: 639963-15-2267RcvwxvmXdqnxyalmxha; infection of eye (except that caused by tuberculosis or sexually transmitteddisease) (2 sources)Acute conjunctivitis; Translations: [Unspecified acute conjunctivitis, bilateral]39-77-1162CrvuwpgdCfoofwn (1 source)Candidal stomatitis; Translations: [CANDIDAL STOMATITIS]Onset: 18-07-6726AycjhkuqCcpzb congenital anomalies (1 source)Accessory lobe of lung; Translations: [ACCESSORY LOBE OF LUNG]Onset: 75-62-9310LesvetnNxncr gastrointestinal disorders (4 sources)Other specified symptoms and signs involving the digestive system and abdomen; Translations: [OTH SPEC SX SIGNS DIGESTV SYS ABD]Onset: 05-16-2021 EpisodicOther nutritional; endocrine; and metabolic disorders (7 sources)Body mass index 30+ - obesity; Translations: [Obesity, unspecified] Onset: 690626-11-6826TexnkurZnajz nutritional; endocrine; and metabolic disorders (8 sources)Obesity caused by energy imbalance; Translations: [Class 1 obesity due to excess calories with serious comorbidity and body mass index (BMI) of 32.0 to 32.9 in adult]Onset: 908237-05-5459AdmeismCifnx upper respiratory disease (15 sources)Allergic rhinitis due to pollen; Translations: [Allergic rhinitis due to pollen]Onset: 626440-20-7988VttcrnjTwrtiuqo; pneumothorax; pulmonary collapse (1 source)Pyothorax without fistula; Translations: [PYOTHORAX WITHOUT FISTULA] Onset: 09-15-8184AlohqueuWmhxdfgbivk failure; insufficiency; arrest (adult) (1 source)Acute respiratory failure with hypoxia; Translations: [ACUTE RESPIRATORY FAIL W/HYPOXIA]Onset: 49-59-4781MdcpgyxsBnxbfubfwx (except in labor) (2 sources)Sepsis due to Methicillin susceptible Staphylococcus aureus; Translations: [Severe sepsis without septic shock]Onset: 73-32-6556Wnfifwhs Substance-related disorders (1 source)Nicotine dependence, cigarettes, uncomplicated; Translations: [NICOTINE DEPEND CIGARETTES UNCOMP]Onset: 82-69-3243XumnytfCgherlxrrbyi (1 source)CONTACT W/AND (SUSP) EXPOS COVID-19; Translations: [CONTACT W/AND (SUSP) EXPOS COVID-19]Onset: 06-22-2021 Past or Other Problems Problem ClassificationProblemDateDocumented DateEpisodic/ChronicDiabetes mellitus without complication (15 sources)Prediabetes; Translations: [Prediabetes]Onset: 053177-53-4047 EpisodicMood disorders (6 sources)Mood disordersOnset: 221423-09-0201Kswef aftercare (2 sources)Patient encounter status; Translations: [Other exterminator (current) drug therapy]Onset: 196871-68-2947AvayajihJpnpn aftercare (13 sources)Long-term current use of drug therapy; Translations: [Other chcf (current) drug therapy]Onset: 974558-29-7095YtudcqwfEleejborl (except that caused by tuberculosis or sexually transmitted disease) (16 sources)Pneumonia, unspecified organism; Translations: [Pneumonia due to respiratory syncytial virus]Onset: 06-07-2021 Resolved: 70-80-2586YuqkjppuGoncuubr codes; unclassified (15 sources)Edema of lower extremity; Translations: [Localized edema]Onset: 489348-31-9567BnyuqqvwKvkkpagyibjn (1 source)Acute cough R05.1 Results Test NameValueInterpretationReference RangeFacilityALL CBC WITH AUTO DIFFon 26-40-2930KBFXJEJGU ABSOLUTE QUCD9YFFX HealthcareBasophils/100 WBC (Bld)0.6 %0.2 - 2.0 %NOMS HealthcareEosinophils/100 WBC (Bld)1.3 %0.9 - 7.0 %[facility] Erythrocyte distribution width (RBC) [Ratio]12.6 %11.0 - 15.0 %[facility] Hematocrit (Bld) [Volume fraction]40.4 %36.0 - 48.0 %NOMSaint John'S Breech Regional Medical CenterHemoglobin (Bld) [Mass/Vol]14.2 g/dL12.0 - 16.0 g/dLNOSainte Genevieve County Memorial HospitalIMMATURE GRANULOCYTES ABS AUTO0.01NOMS HealthcareImmature granulocytes/100 WBC (Bld)0.2 %0.0 - 0.5 % [facility] HospitalInterpretation and review of laboratory resultsAbnormalNOAR HealthcareLYMPHOCYTES ABSOLUTE AUTO1.3NOMS HealthcareLymphocytes/100 WBC (Bld) 27.2 %20.5 - 60.0 %[facility] HospitalMCH (RBC) [Entitic mass]34.5 cmMkwp34.7 - 34.0 pgNOSainte Genevieve County Memorial HospitalMCHC (RBC) [Mass/Vol]35.1 g/dL29.9 - 35.2 g/dLNOMS Healthcare MCV (RBC) [Entitic vol]98.1 fL81.0 - 99.0 fLNOMS HealthcareMONOCYTES ABSOLUTE AUTO0.3NOMS HealthcareMonocytes/100 WBC (Bld)5.9 %1.7 - 12.0 %[facility] NEUTROPHILS ABSOLUTE AUTO3.1NOMS HealthcareNeutrophils/100 WBC (Bld)64.8 %43.0 - 75.0 %[facility] HealthcarePlatelet mean volume (Bld) [Entitic vol]9.1 fLLow9.5 - 13.5 fLNOMS HealthcareTBH EO #0.1NOMS HealthcareTBH FHR540OTGQ HealthcareTBH RBC4.12 LowNOMS HealthcareTBH WBC4.8NOMS HealthcareCLINISYNCNOU MEDICAL [facility] HealthcareCT LUNG SCREENING LOW DOSEon 20-04-0549[place] [address] [place] Scan Report Signed Patient: MIRANDA GILLILAND MR#: [id number] : 1955 Acct:[id number] Age/Sex: 68 / F ADM Date: 07/04/24 Loc: CT Attending Dr: Oxana New D.O. Ordering Physician: Oxana New D.O. Date of Service: 07/04/24 Procedure(s): CT lung screening low-dose Accession Number(s): [id number] cc: Piter Cleary M.D. [place] [address] Patient Name: MIRANDA GILLILAND MRN: [facility]:[id number] date: 1955 Sex: F Assigned Patient Location: CT Current Patient Location: CT Accession/Order Number: [id number] Exam Date: 07/04/2024 08:42 Report Date: 07/04/2024 [...] M.D. Signed By: 07/04/24910 DD/ 8 TD/TT: Substation Manager:TBHRadiology, Radiologist, - 07/04/[address] [place] [address] CT Scan Report Signed Patient: MIRANDA GILLILAND MR#: [id number] : 1955 Acct:[id number] Age/Sex: 68 / F ADM Date: 07/04/24 Loc: CT Attending Dr: Oxana New D.O. Ordering Physician: Oxana New D.O. Date of Service: 07/04/24 Procedure(s): CT lung screening low-dose Accession Number(s): [id number] cc: Piter Cleary M.D. [address] [address] Patient Name: MIRANDA GILLILAND MRN: [id number] date: 1955 Sex: F Assigned Patient Location: CT Current Patient Location: CT Accession/Order Number: [id number] Exam Date: 07/04/2024 08:42 Report Date: 07/04/2024 [...] M.D. Signed By: 07/04/24910 DD/ 8 TD/TT: Substation Manager: [facility] HealthcareRadiology Study observation (narrative)[facility] HealthcareCT LUNG SCREENING LOW DOSEOrdered By: Radiologist Radiology on 61-81-4925OPHD [employer] Work Phone: cOVID + FLU Quick Testingon 88-79-6012NMDI-CoV-2 (COVID-19) RNA MASON+probe Ql (Unsp spec)NegativeNort [employer] Other COVID + FLU Quick TestingNegativeNonevada regional medical center [employer] Other 869-1384KLDRX-2-ANTITRYPSIN PHENOTYPINGon 06-14-2021 Gauuv-6-Czcewvimbfi, Xgylb378 mg/dLCritically wzas064-187MfqKettering Health [facility] Comment on above:Result Comment: Performed at: CBPerformed By: #### CVDTBH #### [facility] [address] [place] [address] Dr. Jessica GonzalezPhenotype (PI)MMSelect Medical Specialty Hospital - TrumbullComment on above: Result Comment: Phenotype Population A-1-AT [...] Performed at: BNPerformed By: #### CVDTBH #### [facility] [address] [place] [address] Dr. Jessica Dowling W MANUAL DIFFon 05-40-6038RRKEZJIQ LYMPH #NormalKettering Health Washington TownshipComment on above:Performed By: #### CBCMAN #### [facility] [address] [place] [address] Dr. Jessica GonzalezATYPICAL LYMPH %NormalKettering Health Washington TownshipComment on above: Performed By: #### CBCMAN #### [facility] [address] [place] [address] Dr. Jessica Zaidi #1.2 103/ulCritically high0.0-0.3TGreen [facility] Comment on above:Performed By: #### CBCMAN #### [facility] [address] [place] [address] Dr. Jessica Zaidi %6 %Critically high0-5The [facility] CenterComment on above: Performed By: #### CBCMAN #### [facility] [address] [place] [address] Dr. Jessica Jaime #0.00 103/ulNormal0.00-0.10The [facility] CenterComment on above:Performed By: #### CBCMAN #### [facility] [address] [place] [address] Dr. Jessica Jaime %0.0 %Critically low0.2-2.0The [facility] CenterComment on above:Performed By: #### CBCSUE #### [facility] [address] [place] [address] Dr. Jessica Sellers #NormalThe [facility] CenterComment on above:Performed By: #### JAGRUTI #### [facility] [address] [place] [address] Dr. Jessica GonzalezBLAST %NormalThe [facility] CenterComment on above:Performed By: #### JAGRUTI #### [facility] [address] [place] [address] Dr. Jessica GonzalezCORRECTED WBCNormal4.0-11.0The [facility] CenterComment on above: Performed By: #### JAGRUTI #### [facility] [address] [place] [address] Dr. Jessica Chowdhury #0.00 103/ulNormal0.00-0.70The [facility] CenterComment on above:Performed By: #### JAGRUTI #### [facility] [address] [place] [address] Dr. Jessica Chowdhury%0.0 %Critically low0.9-7.0The [facility] CenterComment on above:Performed By: #### JAGRUTI #### [facility] [address] [place] [address] Dr. Jessica GonzalezHCT37.7 %Rupqzo71.0-48.0The [facility] CenterComment on above: Performed By: #### JAGRUTI #### [facility] [address] [place] [address] Dr. Jessica GonzalezHGB12.6 g/ppMobwlx81.0-16.0The [facility] CenterComment on above: Performed By: #### JAGRUTI #### [facility] [address] [place] [address] Dr. Jessica Rodriguez #1.76 103/ulNormal1.20-3.80The [facility] CenterComment on above:Performed By: #### JAGRUTI #### [facility] [address] [address] [address] Jessica Rodriguez%9.0 %Critically low20.5-60.0The [facility] CenterComment on above:Performed By: #### CBCSUE #### [facility] [address] [place] [address] [address] Jessica MeadH33.4 spRnzsdb72.7-34.0The [facility] CenterComment on above: Performed By: #### CBCSUE #### [facility] [address] [address] [address] Jessica MeadHC33.4 g/vkYfhaqe68.9-35.2The [facility] CenterComment on above:Performed By: #### JAGRUTI #### [facility] [address] [address] [address] Jessica MeadV100.0 fLCritically high81.0-99.0The [facility] CenterComment on above:Performed By: #### CBCSUE #### [facility] [address] [place] [address] Dr. Jessica TellesELOCYTE #NormalThe [facility] CenterComment on above: Performed By: #### JAGRUTI #### [facility] [address] [place] [address] Dr. Jessica TellesELOCYTE %NormalThe [facility] CenterComment on above: Performed By: #### JAGRUTI #### [facility] [address] [place] [address] Dr. Jessica Downing#0.98 103/ulCritically high0.30-0.80The [facility] Comment on above:Performed By: #### JAGRUTI #### [facility] [address] [place] [address] Dr. Jessica Downing%5.0 %Normal1.7-12.0The [facility] CenterComment on above: Performed By: #### CBCSUE #### [facility] [address] [address] [address] Jessica LunaV9.3 fLCritically low9.5-13.5The [facility] CenterComment on above:Performed By: #### JAGRUTI #### [facility] [address] [address] [address] Jessica Perez #NormalKettering Health Washington TownshipComment on above:Performed By: #### JAGRUTI #### [facility] [address] [address] [address] Jessica De AndaOCYTE %NormalThe [facility] CenterComment on above:Performed By: #### JAGRUTI #### [facility] [address] [address] [address] Jessica ReyesNoMercy Health Perrysburg HospitalComment on above:Performed By: #### JAGRUTI #### [facility] [address] [place] [address] Dr. Jessica SahuT271 103/lgUlgett937-277Ssq [facility] CenterComment on above: Performed By: #### JAGRUTI #### [facility] [address] [place] [address] Dr. Jessica DimasC3.77 106/ulCritically low4.20-5.40The [facility] CenterComment on above:Performed By: #### JAGRUTI #### [facility] [address] [place] [address] Dr. Jessica GonzalezRDW13.6 %Pvuuml32.0-15.0The [facility] CenterComment on above: Performed By: #### JAGRUTI #### [facility] [address] [place] [address] Dr. Jessica Raygoza #15.68 103/ulCritically high1.40-6.50The [facility] on above:Performed By: #### JAGRUTI #### [facility] [address] [place] [address] Dr. Jessica Raygoza %80.0 %Critically high43.0-75.0The [facility] CenterComment on above:Performed By: #### JAGRUTI #### [facility] [address] [place] [address] Dr. Jessica PérezBC19.6 103/ulCritically high4.0-11.0The [facility] CenterComment on above:Performed By: #### CBCMAN #### [facility] [address] [place] [address] Dr. Jessica GonzalezPROF CHEM 8 (BAS METB)on 21-74-7731Lthjx gap [Moles/Vol]12.0 mmol/LNormalThe [facility] CenterComment on above:Performed By: #### BMP #### [facility] [address] [place] [address] Dr. Jessica GonzalezCalcium [Mass/Vol]8.7 mg/dLNormal8.4-10.2The [facility] Comment on above:Performed By: #### BMP #### [facility] [address] [place] [address] Dr. Jessica GonzalezChloride [Moles/Vol]103 mmol/TUgrtsj31-639Usx [facility] Comment on above:Performed By: #### BMP #### [facility] [address] [place] [address] Dr. Jessica GonzalezCO2 [Moles/Vol]27.7 mmol/KMcmfbk20.0-30.0The [facility] Comment on above:Performed By: #### BMP #### [facility] [address] [place] [address] Dr. Jessica GonzalezCreatinine [Mass/Vol]0.85 mg/dLNormal0.52-1.04The [facility] CenterComment on above:Performed By: #### BMP #### [facility] [address] [place] [address] Dr. Jessica GaviriaGFR-AF JAPANESE>60Normal>=60The [facility] CenterComment on above:Performed By: #### BMP #### [facility] [address] [place] [address] Dr. Jessica GaviriaGFR-NON AF JAPANESE>60Normal>=60The [facility] CenterComment on above:Performed By: #### BMP #### [facility] [address] [place] [address] Dr. Jessica GonzalezGlucose [Mass/Vol]156 mg/dLCritically btio62-022Zhz [facility] CenterComment on above:Performed By: #### BMP #### [facility] [address] [place] [address] Dr. Jessica GonzalezPotassium [Moles/Vol]3.7 mmol/LNormal3.4-5.0[facility] Comment on above:Performed By: #### BMP #### [facility] [address] [place] [address] Dr. Jessica Garzadium [Moles/Vol]139 mmol/RPdyybc628-360XfoKettering Health Washington [facility] Comment on above:Performed By: #### BMP #### [facility] [address] [place] [address] Dr. Jessica GonzalezUrea nitrogen [Mass/Vol]18.0 mg/dLCritically high7.0-17.0The [facility] CenterComment on above:Performed By: #### BMP #### [facility] [address] [place] [address] Dr. Jessica Cantu nitrogen/Creatinine [Mass ratio]21.2 mg/mgNormalThChillicothe VA Medical CenterComment on above:Performed By: #### BMP #### [facility] [address] [place] [address] Dr. Jessica Dowling W MANUAL DIFFon 84-32-3076ZIDJFPPV LYMPH #NormalKettering Health Washington TownshipComment on above:Performed By: #### CVDTBH #### [facility] [address] [place] [address] Dr. Jessica ChouYPICAL LYMPH %NormalThe [facility] CenterComment on above: Performed By: #### CVDTBH #### [facility] [address] [place] [address] Dr. Jessica Zaidi #2.0 103/ulCritically high0.0-0.3TG[facility] Comment on above:Performed By: #### CVDTBH #### [facility] [address] [place] [address] Dr. Jessica Zaidi %11 %Critically high0-5The [facility] CenterComment on above:Performed By: #### CVDTBH #### [facility] [address] [place] [address] Dr. Jessica Jaime #0.00 103/ulNormal0.00-0.10The [facility] CenterComment on above:Performed By: #### CVDTBH #### [facility] [address] [place] [address] Dr. Jessica Jaime %0.0 %Critically low0.2-2.0The [facility] Medical CenterComment on above:Performed By: #### CVDTBH #### [facility] [address] [place] [address] Dr. Jessica Sellers #NormalThe [facility] Medical CenterComment on above:Performed By: #### CVDTBH #### [facility] [address] [place] [address] Dr. Jessica Sellers %NormalThe [facility] CenterComment on above:Performed By: #### CVDTBH #### [facility] [address] [place] [address] Dr. Jessica GonzalezCORRECTED WBCNormal4.0-11.0The [facility] CenterComment on above: Performed By: #### CVDTBH #### [facility] [address] [place] [address] Dr. Jessica Chowdhury #0.18 103/ulNormal0.00-0.70The [facility] CenterComment on above:Performed By: #### CVDTBH #### [facility] [address] [place] [address] Dr. Jessica Chowdhury%1.0 %Normal0.9-7.0The [facility] CenterComment on above: Performed By: #### CVDTBH #### [facility] [address] [place] [address] Dr. Jessica GonzalezHCT37.5 %Wpthuu14.0-48.0The [facility] CenterComment on above: Performed By: #### CVDTBH #### [facility] [address] [place] [address] Dr. Jessica GonzalezHGB12.5 g/nqAqyfnp49.0-16.0The [facility] CenterComment on above: Performed By: #### CVDTBH #### [facility] [address] [place] [address] Dr. Jessica Rodriguez #2.00 103/ulNormal1.20-3.80The [facility] CenterComment on above:Performed By: #### CVDTBH #### [facility] [address] [place] [address] Dr. Jessica Rodriguez%11.0 %Critically low20.5-60.0The [facility] CenterComment on above:Performed By: #### CVDTBH #### [facility] [address] [place] [address] Dr. Jessica MeadH33.2 dvPoaubp59.7-34.0The [facility] CenterComment on above: Performed By: #### NOEMÍTBH #### [facility] [address] [place] [address] Dr. Jessica MaedHC33.3 g/vhRkzblb81.9-35.2The [facility] CenterComment on above:Performed By: #### CVDTBH #### [facility] [address] [place] [address] Dr. Jessica MeadV99.7 fLCritically high81.0-99.0The [facility] CenterComment on above:Performed By: #### NOEMÍTBH #### [facility] [address] [place] [address] Dr. Jessica IbrahimOCYTE #NormalThe [facility] CenterComment on above: Performed By: #### CVDTBH #### [facility] [address] [place] [address] Dr. Jessica IbrahimOCYTE %NormalThe [facility] CenterComment on above: Performed By: #### CVDTBH #### [facility] [address] [place] [address] Dr. Jessica Downing#1.46 103/ulCritically high0.30-0.80The [facility] Comment on above:Performed By: #### CVDTBH #### [facility] [address] [address] [address] Jessica Downing%8.0 %Normal1.7-12.0The [facility] CenterComment on above: Performed By: #### CVDTBH #### [facility] [address] [address] [address] Jessica GonzalezMPV10.2 fLNormal9.5-13.5The [facility] CenterComment on above: Performed By: #### CVDTBH #### [facility] [address] [place] [address] Dr. Jessica De AndaOCYTE #NormalThe [facility] CenterComment on above:Performed By: #### CVDTBH #### [facility] [address] [place] [address] Dr. Jessica De AndaOCYTE %NormalThe [facility] CenterComment on above:Performed By: #### CVDTBH #### [facility] [address] [place] [address] Dr. Jessica GonzalezNRBCNormalThe [facility] CenterComment on above:Performed By: #### CVDTBH #### [facility] [address] [place] [address] Dr. Jessica SahuT223 103/gqLgkfug546-291Fha [facility] CenterComment on above: Performed By: #### CVDTBH #### [facility] [address] [place] [address] Dr. Jessica DimasC3.76 106/ulCritically low4.20-5.40The [facility] CenterComment on above:Performed By: #### CVDTBH #### [facility] [address] [place] [address] Dr. Jessica GonzalezRDW13.8 %Kdqhlq07.0-15.0The [facility] CenterComment on above: Performed By: #### CVDTBH #### [facility] [address] [place] [address] Dr. Jessica Raygoza #12.56 103/ulCritically high1.40-6.50The [facility] Comment on above:Performed By: #### CVDTBH #### [facility] [address] [place], [place] [address] Dr. Jessica Raygoza %69.0 %Mqinnn54.0-75.0The [facility] Medical CenterComment on above: Performed By: #### CVDTBH #### [facility] [address] [place], [place] [address] Dr. Jessica GonzalezWBC18.2 103/ulCritically high4.0-11.0The [facility] CenterComment on above:Performed By: #### CVDTBH #### [facility] [address] [place], [place] [address] Dr. Jessica GonzalezCT CHEST WO CONon [id number] CHEST WO CONEXAMINATION: CT CHEST WO CON [...] mass, effusion, or pneumothorax. VASCULATURE: No abnormality. FASHIN: No pathologic lymphadenopathy MEDIASTINUM: No pathologic lymphadenopathy [...] Electronically authenticated by: CALI BRITO Date: 2021-06-13 09:23[facility]ullPROF [facility] 8 (BAS METB)on [id number] gap [Moles/Vol]11.7 mmol/LNormalThe [facility] Medical CenterComment on above:Performed By: #### CVDTBH #### [facility] [address] [place] [address] Dr. Jessica GonzalezCalcium [Mass/Vol]8.9 mg/dLNormal8.4-10.2The [facility] Comment on above:Performed By: #### CVDTBH #### [facility] [address] [place] [address] Dr. Jessica GonzalezChloride [Moles/Vol]106 mmol/DWltnvj40-890Xzy [facility] Comment on above:Performed By: #### CVDTBH #### [facility] [address] [place] [address] Dr. Jessica GonzalezCO2 [Moles/Vol]26.1 mmol/BVwkkue66.0-30.0The [facility] Comment on above:Performed By: #### CVDTBH #### [facility] [address] [place] [address] Dr. Jessica GonzalezCreatinine [Mass/Vol]0.81 mg/dLNormal0.52-1.04The [facility] CenterComment on above:Performed By: #### CVDTBH #### [facility] [address] [place] [address] Dr. Jessica GaviriaGFR-AF JAPANESE>60Normal>=60The [facility] CenterComment on above:Performed By: #### CVDTBH #### [facility] [address] [place] [address] Dr. Jessica GaviriaGFR-NON AF JAPANESE>60Normal>=60The [facility] CenterComment on above:Performed By: #### CVDTBH #### [facility] [address] [place] [address] Dr. Jessica GonzalezGlucose [Mass/Vol]167 mg/dLCritically hvfy25-092Smk [facility] CenterComment on above:Performed By: #### CVDTBH #### [facility] [address] [place] [address] Dr. Jessica GonzalezPotassium [Moles/Vol]3.8 mmol/LNormal3.4-5.0The [facility] Comment on above:Performed By: #### CVDTBH #### [facility] [address] [place] [address] Dr. Jessica GonzalezSodium [Moles/Vol]140 mmol/AXqugsw328-861Lqi [facility] Comment on above:Performed By: #### CVDTBH #### [facility] [address] [place] [address] Dr. Jessica Cantu nitrogen [Mass/Vol]19.0 mg/dLCritically high7.0-17.0The [facility] CenterComment on above:Performed By: #### CVDTBH #### [facility] [address] [place] [address] Dr. Jessica Cantu nitrogen/Creatinine [Mass ratio]23.5 mg/mgSelect Medical Specialty Hospital - TrumbullComment on above:Performed By: #### CVDTBH #### [facility] [address] [place] [address] Dr. Jessica GonzalezXR CHEST 2 Von [id number] CHEST 2 VEXAM: XR CHEST 2 V [...] Electronically authenticated by: CALI BRITO Date: 2021-06-13 07:00[facility] W MANUAL DIFFon [id number] LYMPH #NormalThe [facility] CenterComment on above:Performed By: #### CVDTBH #### [facility] [address] [place] [address] Dr. Jessica GonzalezATYPICAL LYMPH %NormalThe [facility] CenterComment on above: Performed By: #### CVDTBH #### [facility] [address] [place] [address] Dr. Jessica Zaidi #1.3 103/ulCritically high0.0-0.3The [facility] Comment on above:Performed By: #### CVDTBH #### [facility] [address] [place] [address] Dr. Jessica Zaidi %8 %Critically high0-5The [facility] HospitalComment on above: Performed By: #### CVDTBH #### [facility] [address] [place] [address] Dr. Jessica Jaime #0.00 103/ulNormal0.00-0.10The [facility] HospitalComment on above:Performed By: #### CVDTBH #### [facility] [address] [place] [address] Dr. Jessica Jamie %0.0 %Critically low0.2-2.0The [facility] CenterComment on above:Performed By: #### CVDTBH #### [facility] [address] [place] [address] Dr. Jessica Sellers #NormalThe [facility] HospitalComment on above:Performed By: #### CVDTBH #### [facility] [address] [place] [address] Dr. Jessica Sellers %NormalCoshocton Regional Medical Center HospitalComment on above:Performed By: #### CVDTBH #### [facility] [address] [place] [address] Dr. Jessica GonzalezCORRECTED WBCNormal4.0-11.0The [facility] CenterComment on above: Performed By: #### CVDTBH #### [facility] [address] [place] [address] Dr. Jessica Chowdhury #0.00 103/ulNormal0.00-0.70The [facility] CenterComment on above:Performed By: #### CVDTBH #### [facility] [address] [place] [address] Dr. Jessica Chowdhury%0.0 %Critically low0.9-7.0The [facility] HospitalComment on above:Performed By: #### CVDTBH #### [facility] [address] [address] [address] Jessica GonzalezHCT35.4 %Critically low36.0-48.0The [facility] CenterComment on above:Performed By: #### CVDTBH #### [facility] [address] [address] [address] Jessica GonzalezHGB11.9 g/dlCritically low12.0-16.0The [facility] CenterComment on above:Performed By: #### CVDTBH #### [facility] [address] [address] [address] Jessica Rodriguez #0.63 103/ulCritically low1.20-3.80The [facility] Comment on above:Performed By: #### CVDTBH #### [facility] [address] [address] [address] Jessica Rodriguez%4.0 %Critically low20.5-60.0The [facility] CenterComment on above:Performed By: #### CVDTBH #### [facility] [address] [address] [address] Jessica MeadH33.3 fcXzlytl17.7-34.0The [facility] CenterComment on above: Performed By: #### CVDTBH #### [facility] [address] [address] [address] Jessica MeadHC33.6 g/wpLojxxu56.9-35.2The [facility] CenterComment on above:Performed By: #### CVDTBH #### [facility] [address] [address] [address] Jessica MeadV99.2 fLCritically high81.0-99.0The [facility] CenterComment on above:Performed By: #### CVDTBH #### [facility] [address] [place] [address] Dr. Jessica NarvaezSEARCY HOSPITALELOCYTE #NormalThe [facility] CenterComment on above: Performed By: #### CVDTBH #### [facility] [address] [place] [address] Dr. Jessica NarvaezAMYELOCYTE %NormalKettering Health Washington TownshipComment on above: Performed By: #### CVDTBH #### [facility] [address] [place] [address] Dr. Jessica Downing#0.79 103/ulNormal0.30-0.80The [facility] HospitalComment on above:Performed By: #### CVDTBH #### [facility] [address] [place] [address] Dr. Jessica Downing%5.0 %Normal1.7-12.0The [facility] CenterComment on above: Performed By: #### CVDTBH #### [facility] [address] [place] [address] Dr. Jessica GonzalezMPV9.4 fLCritically low9.5-13.5The [facility] CenterComment on above:Performed By: #### CVDTBH #### [facility] [address] [place] [address] Dr. Jessica De AndaOCYTE #NormalThe [facility] CenterComment on above:Performed By: #### CVDTBH #### [facility] [address] [place] [address] Dr. Jessica De AndaOCYTE %NormalThe [facility] CenterComment on above:Performed By: #### CVDTBH #### [facility] [address] [place] [address] Dr. Jessica GonzalezNRBCNormalThe [facility] CenterComment on above:Performed By: #### CVDTBH #### [facility] [address] [place] [address] Dr. Jessica GonzalezPLT241 103/pzGwutyl675-794Klj [facility] HospitalComment on above: Performed By: #### CVDTBH #### [facility] [address] [place] [address] Dr. Jessica GonzalezRBC3.57 106/ulCritically low4.20-5.40The [facility] CenterComment on above:Performed By: #### CVDTBH #### [facility] [address] [address] [address] Jessica GonzalezRDW13.5 %Vvtkts22.0-15.0The [facility] CenterComment on above: Performed By: #### CVDTBH #### [facility] [address] [place] [address] Dr. Jessica Raygoza #13.11 103/ulCritically high1.40-6.50The [facility] Comment on above:Performed By: #### CVDTBH #### [facility] [address] [place] [address] Dr. Jessica Raygoza %83.0 %Critically high43.0-75.0The [facility] CenterComment on above:Performed By: #### CVDTBH #### [facility] [address] [place] [address] Dr. Jessica GonzalezWBC15.8 103/ulCritically high4.0-11.0The [facility] CenterComment on above:Performed By: #### CVDTBH #### [facility] [address] [place] [address] Dr. Jessica GonzalezPROF CHEM 8 (BAS METB)on 06-39-0905Lfnof gap [Moles/Vol]12.6 mmol/LNormalKettering Health Washington TownshipComment on above:Performed By: #### BMP #### [facility] [address] [place] [address] Dr. Jessica GonzalezCalcium [Mass/Vol]8.9 mg/dLNormal8.4-10.2[facility] Comment on above:Performed By: #### BMP #### [facility] [address] [place] [address] Dr. Jessica GonzalezChloride [Moles/Vol]106 mmol/DWsrvwg78-099Bil [facility] Comment on above:Performed By: #### BMP #### [facility] [address] [place] [address] Dr. Jessica GonzalezCO2 [Moles/Vol]26.0 mmol/OKmlnkb79.0-30.0The [facility] Comment on above:Performed By: #### BMP #### [facility] [address] [address] [address] Jessica GonzalezCreatinine [Mass/Vol]0.72 mg/dLNormal0.52-1.04The [facility] CenterComment on above:Performed By: #### BMP #### [facility] [address] [address] [address] Lopez ChangEGFR-AF JAPANESE>60Normal>=60The [facility] CenterComment on above:Performed By: #### BMP #### [facility] [address] [address] [address] Jessica GaviriaGFR-NON AF JAPANESE>60Normal>=60The [facility] CenterComment on above:Performed By: #### BMP #### [facility] [address] [address] [address] Jessica GonzalezGlucose [Mass/Vol]132 mg/dLCritically abco84-879Ibt [facility] CenterComment on above:Performed By: #### BMP #### [facility] [address] [address] [address] Jessica GonzalezPotassium [Moles/Vol]3.6 mmol/LNormal3.4-5.0The [facility] Comment on above:Performed By: #### BMP #### [facility] [address] [place] [address] Dr. Jessica GonzalezSodium [Moles/Vol]141 mmol/HFgznhx807-952Unr [facility] Comment on above:Performed By: #### BMP #### [facility] [address] [address] [address] Jessica GonzalezUrea nitrogen [Mass/Vol]21.0 mg/dLCritically high7.0-17.0The [facility] CenterComment on above:Performed By: #### BMP #### [facility] [address] [address] [address] Jessica GonzalezUrea nitrogen/Creatinine [Mass ratio]29.2 mg/mgNormalThe [facility] CenterComment on above:Performed By: #### BMP #### [facility] [address] [place] [address] Dr. Jessica Dowling AUTO DIFFon [id number] #0.0 103/ulNormal0.0-0.1The [facility] CenterComment on above:Performed By: #### CVDTBH #### [facility] [address] [place] [address] Dr. Jessica GonzalezBasophils/100 WBC (Bld)0.1 %Critically low0.2-2.0The [facility] CenterComment on above:Performed By: #### CVDTBH #### [facility] [address] [place] [address] Dr. Jessica Golden #0.0 103/ulNormal0.0-0.7The [facility] CenterComment on above: Performed By: #### CVDTBH #### [facility] [address] [place] [address] Dr. Jessica Gaviriaosinophils/100 WBC (Bld)0.1 %Critically low0.9-7.0The [facility] CenterComment on above:Performed By: #### CVDTBH #### [facility] [address] [place] [address] Dr. Jessica Gaviriarythrocyte distribution width (RBC) [Ratio]13.2 %Ehilds42.0-15.0 The [facility] CenterComment on above:Performed By: #### CVDTBH #### [facility] [address] [place] [address] Dr. Jessica GonzalezHematocrit (Bld) [Volume fraction]36.3 %Kxzrki97.0-48.0[facility] TownshipComment on above:Performed By: #### CVDTBH #### [facility] [address] [place] [address] Dr. Jessica GonzalezHemoglobin (Bld) [Mass/Vol]12.1 g/tPXuytas21.0-16.0[facility] TownshipComment on above:Performed By: #### CVDTBH #### [facility] [address] [place] [address] Dr. Yilan ChangIG #1.99 10e3/ulCritically high0.00-0.03[facility] Comment on above:Performed By: #### CVDTBH #### [facility] [address] [place] [address] Dr. Jessica Davidson %11.1 %Critically high0.0-0.5The [facility] CenterComment on above:Performed By: #### CVDTBH #### [facility] [address] [place] [address] Dr. Jessica Bonds #1.1 103/ulCritically low1.2-3.8The [facility] Comment on above:Performed By: #### CVDTBH #### [facility] [address] [place] [address] Dr. Jessica Galvanhocytes/100 WBC (Bld)6.1 %Critically low20.5-60.0The [facility] CenterComment on above:Performed By: #### CVDTBH #### [facility] [address] [place] [address] Dr. Jessica ValenciaUAL DIFF REQNONormalThe [facility] CenterComment on above: Performed By: #### CVDTBH #### [facility] [address] [place] [address] Dr. Jessica Mead (RBC) [Entitic mass]33.0 laFeqzox27.7-34.0The [facility] CenterComment on above:Performed By: #### CVDTBH #### [facility] [address] [place] [address] Dr. Jessica Mead (RBC) [Mass/Vol]33.3 g/oFTnlwjw89.9-35.2The [facility] CenterComment on above:Performed By: #### CVDTBH #### [facility] [address] [place] [address] Dr. Jessica Mead (RBC) [Entitic vol]98.9 fPCtbqdv63.0-99.0The [facility] CenterComment on above:Performed By: #### CVDTBH #### [facility] [address] [place] [address] Dr. Jessica Manriquez #0.5 103/ulNormal0.3-0.8The [facility] CenterComment on above:Performed By: #### CVDTBH #### [facility] [address] [place] [address] Dr. Jessica Eastocytes/100 WBC (Bld)2.8 %Normal1.7-12.0[facility] Comment on above:Performed By: #### CVDTBH #### [facility] [address] [place] [address] Dr. Jessica Martin #14.3 103/ulCritically high1.4-6.5The [facility] Comment on above:Performed By: #### CVDTBH #### [facility] [address] [place] [address] Dr. Jessica Valdezutrophils/100 WBC (Bld)79.8 %Critically high43.0-75.0The [facility] CenterComment on above:Performed By: #### CVDTBH #### [facility] [address] [place] [address] Dr. Jessica Quezada mean volume (Bld) [Entitic vol]9.6 fLNormal9.5-13.5The [facility] CenterComment on above:Performed By: #### CVDTBH #### [facility] [address] [place] [address] Dr. Jessica GonzalezPLT237 103/wkBrfune605-039Tmv [facility] CenterComment on above: Performed By: #### CVDTBH #### [facility] [address] [place] [address] Dr. Jessica GonzalezRBC3.67 106/ulCritically low4.20-5.40The [facility] CenterComment on above:Performed By: #### CVDTBH #### [facility] [address] [place] [address] Dr. Jessica GonzalezWBC18.0 103/ulCritically high4.0-11.0The [facility] CenterComment on above:Performed By: #### CVDTBH #### [facility] [address] [place] [address] Dr. Jessica Proctor SPUTUMon [id number] SPUTUMCulture Observations: Normal respiratory eugenio also seen. [...] <=10 S F Oxacillin <=0.25 S FNormalThe [facility] CenterComment on above:Performed By: #### BMP #### [facility] [address] [place] [address] Dr. Jessica GonzalezPROF CHEM 8 (BAS METB)on [id number] gap [Moles/Vol]12.5 mmol/LNormalKettering Health Washington TownshipComment on above:Performed By: #### BMP #### [facility] [address] [place] [address] Dr. Jessica GonzalezCalcium [Mass/Vol]9.2 mg/dLNormal8.4-10.2[facility] Comment on above:Performed By: #### BMP #### [facility] [address] [place] [address] Dr. Jessica GonzalezChloride [Moles/Vol]107 mmol/VBgpzpa39-926WxcKettering Health [facility] Township Comment on above:Performed By: #### BMP #### [facility] [address] [place] [address] Dr. Jessica GonzalezCO2 [Moles/Vol]25.3 mmol/SMghkti29.0-30.0[facility] Comment on above:Performed By: #### BMP #### [facility] [address] [place], [place] [id number] Dr. Jessica GonzalezCreatinine [Mass/Vol]0.77 mg/dLNormal0.52-1.04The [facility] CenterComment on above:Performed By: #### BMP #### [facility] [address] [place] [address] Dr. Jessica GaviriaGFR-AF JAPANESE>60Normal>=60The [facility] CenterComment on above:Performed By: #### BMP #### [facility] [address] [place] [address] Dr. Jessica GaviriaGFR-NON AF JAPANESE>60Normal>=60The [facility] CenterComment on above:Performed By: #### BMP #### [facility] [address] [place] [address] Dr. Jessica GonzalezGlucose [Mass/Vol]163 mg/dLCritically lhgr29-210Mgs [facility] CenterComment on above:Performed By: #### BMP #### [facility] [address] [place] [address] Dr. Jessica GonzalezPotassium [Moles/Vol]3.8 mmol/LNormal3.4-5.0The [facility] Comment on above:Performed By: #### BMP #### [facility] [address] [place] [address] Dr. Jessica GonzalezSodium [Moles/Vol]141 mmol/BJgpqwm418-199Tnr [facility] Comment on above:Performed By: #### BMP #### [facility] [address] [place] [address] Dr. Jessica GonzalezUrea nitrogen [Mass/Vol]19.0 mg/dLCritically high7.0-17.0The [facility] CenterComment on above:Performed By: #### BMP #### [facility] [address] [place] [address] Dr. Jessica Cantu nitrogen/Creatinine [Mass ratio]24.7 mg/mgNormalThe [facility] CenterComment on above:Performed By: #### BMP #### [facility] [address] [place] [address] Dr. Jessica GonzalezVANCOMYCIN TROUGHon [id number] TROUGH9.1 ug/mlNormal 5.0-20.0The [facility] HospitalComment on above:Performed By: #### VANCT #### [facility] [address] [address] [address] Jessica Dowling W MANUAL DIFFon [id number] LYMPH #NormalThe Gorham HospitalComment on above:Performed By: #### BMP #### [facility] [address] [address] [address] Jessica ChouYPICAL LYMPH %NormalCoshocton Regional Medical Center HospitalComment on above: Performed By: #### BMP #### [facility] [address] [place] [address] Dr. Jessica Zaidi #1.2 103/ulCritically high0.0-0.3The [facility] Comment on above:Performed By: #### BMP #### [facility] [address] [place] [address] Dr. Jessica Zaidi %6 %Critically high0-5The [facility] CenterComment on above: Performed By: #### BMP #### [facility] [address] [place] [address] Dr. Jessica Jaime #0.00 103/ulNormal0.00-0.10The [facility] CenterComment on above:Performed By: #### BMP #### [facility] [address] [address] [address] Jessica Jaime %0.0 %Critically low0.2-2.0The [facility] CenterComment on above:Performed By: #### BMP #### [facility] [address] [address] [address] Jessica Sellers #NormalCoshocton Regional Medical Center HospitalComment on above:Performed By: #### BMP #### [facility] [address] [place] [address] Dr. Jessica Sellers %NormalCoshocton Regional Medical Center HospitalComment on above:Performed By: #### BMP #### [facility] [address] [place] [address] Dr. Jessica MejiaRRECTED WBCNormal4.0-11.0The [facility] CenterComment on above: Performed By: #### BMP #### [facility] [address] [place] [address] Dr. Jessica Chowdhury #0.00 103/ulNormal0.00-0.70The [facility] HospitalComment on above:Performed By: #### BMP #### [facility] [address] [place] [address] Dr. Jessica Chowdhury%0.0 %Critically low0.9-7.0The [facility] CenterComment on above:Performed By: #### BMP #### [facility] [address] [place] [address] Dr. Jessica GuajardoT34.2 %Critically low36.0-48.0The [facility] CenterComment on above:Performed By: #### BMP #### [facility] [address] [place] [address] Dr. Jessica GonzalezHGB11.6 g/dlCritically low12.0-16.0The [facility] CenterComment on above:Performed By: #### BMP #### [facility] [address] [place] [address] Dr. Jessica Rodriguez #0.60 103/ulCritically low1.20-3.80The [facility] Comment on above:Performed By: #### BMP #### [facility] [address] [place] [address] Dr. Jessica Rodriguez%3.0 %Critically low20.5-60.0The [facility] CenterComment on above:Performed By: #### BMP #### [facility] [address] [place] [address] Dr. Jessica MeadH33.5 kvDoqofb94.7-34.0The [facility] CenterComment on above: Performed By: #### BMP #### [facility] [address] [place] [address] Dr. Jessica MeadHC33.9 g/aoHvtrfr50.9-35.2The [facility] CenterComment on above:Performed By: #### BMP #### [facility] [address] [address] [address] Jessica MeadV98.8 qUIyuwpq09.0-99.0The [facility] CenterComment on above: Performed By: #### BMP #### [facility] [address] [address] [address] Jessica IbrahimOCYTE #0.2 103/ulNoMercy Health Perrysburg HospitalComment on above:Performed By: #### BMP #### [facility] [address] [place] [address] Dr. Jessica IbrahimOCYTE %1 %NormalKettering Health Washington TownshipComment on above: Performed By: #### BMP #### [facility] [address] [place] [address] Dr. Jessica Downing#0.60 103/ulNormal0.30-0.80The [facility] CenterComment on above:Performed By: #### BMP #### [facility] [address] [place] [address] Dr. Jessica Downing%3.0 %Normal1.7-12.0[facility] TownshipCommymichigan medical [facility] [place] on above: Performed By: #### BMP #### [facility] [address] [place] [address] Dr. Jessica Palomino9.7 fLNormal9.5-13.5The [facility] CenterComment on above: Performed By: #### BMP #### [facility] [address] [place] [address] Dr. Jessica Perez #NormalKettering Health Washington TownshipCommymichigan medical center [place] on above:Performed By: #### BMP #### [facility] [address] [place] [address] Dr. Jessica Perez %NormalKettering Health Washington TownshipComment on above:Performed By: #### BMP #### [facility] [address] [place] [address] Dr. Jessica GonzalezNRPATTIENormalThe Nima HospitalComment on above:Performed By: #### BMP #### [facility] [address] [address] [address] Jessica GonzalezPLT233 103/bhSjpxxa563-147Tcn [facility] CenterComment on above: Performed By: #### BMP #### [facility] [address] [address] [address] Jessica GonzalezRBC3.46 106/ulCritically low4.20-5.40The [facility] CenterComment on above:Performed By: #### BMP #### [facility] [address] [place] [address] Dr. Jessica GonzalezRDW13.1 %Wzrdkq17.0-15.0The [facility] CenterComment on above: Performed By: #### BMP #### [facility] [address] [place] [address] Dr. Jessica Raygoza #17.31 103/ulCritically high1.40-6.50The [facility] Comment on above:Performed By: #### BMP #### [facility] [address] [place] [address] Dr. Jessica Raygoza %87.0 %Critically high43.0-75.0The [facility] CenterComment on above:Performed By: #### BMP #### [facility] [address] [place] [address] Dr. Jessica GonzalezWBC19.9 103/ulCritically high4.0-11.0The [facility] CenterComment on above:Performed By: #### BMP #### [facility] [address] [place] [address] Dr. Jessica GonzalezPROF CHEM 8 (BAS METB)on 72-38-5344Sqrhi gap [Moles/Vol]11.7 mmol/LNormalThe [facility] CenterComment on above:Performed By: #### CVDTBH #### [facility] [address] [place] [address] Dr. Jessica GonzalezCalcium [Mass/Vol]9.5 mg/dLNormal8.4-10.2The [facility] Comment on above:Performed By: #### CVDTBH #### [facility] [address] [address] [address] Jessica GonzalezChloride [Moles/Vol]104 mmol/NLgpmgb80-582Ysn [facility] Comment on above:Performed By: #### CVDTBH #### [facility] [address] [address] [address] Jessica GonzalezCO2 [Moles/Vol]27.0 mmol/VDqppml25.0-30.0The [facility] Comment on above:Performed By: #### CVDTBH #### [facility] [address] [address] [address] Jessica GonzalezCreatinine [Mass/Vol]0.69 mg/dLNormal0.52-1.04The [facility] CenterComment on above:Performed By: #### CVDTBH #### [facility] [address] [address] [address] Jessica GaviriaGFR-AF JAPANESE>60Normal>=60The [facility] CenterComment on above:Performed By: #### CVDTBH #### [facility] [address] [address] [address] Jesscia GaviriaGFR-NON AF JAPANESE>60Normal>=60The [facility] CenterComment on above:Performed By: #### CVDTBH #### [facility] [address] [address] [address] Jessica GonzalezGlucose [Mass/Vol]163 mg/dLCritically npzc04-380Krb [facility] CenterComment on above:Performed By: #### CVDTBH #### [facility] [address] [address] [address] Jessica GonzalezPotassium [Moles/Vol]3.7 mmol/LNormal3.4-5.0The [facility] Comment on above:Performed By: #### CVDTBH #### [facility] [address] [address] [address] Jessica GonzalezSodium [Moles/Vol]139 mmol/ERvallr448-965Jdt [facility] Comment on above:Performed By: #### CVDTBH #### [facility] [address] [address] [address] Jessica GonzalezUrea nitrogen [Mass/Vol]20.0 mg/dLCritically high7.0-17.0The [facility] CenterComment on above:Performed By: #### CVDTBH #### [facility] [address] [place] [address] Dr. Jessica GonzalezUrea nitrogen/Creatinine [Mass ratio]29.0 mg/mgNormGlenbeigh HospitalComment on above:Performed By: #### CVDTBH #### [facility] [address] [place] [address] Dr. Jessica GonzalezXR CHEST 2 Von [id number] CHEST 2 VEXAM: XR CHEST 2 V [...] Electronically authenticated by: CALI BRITO Date: 2021-06-10 07:02[facility] AUTO DIFFon [id number] #0.1 103/ulNormal0.0-0.1The [facility] CenterComment on above:Performed By: #### CBC #### [facility] [address] [place] [address] Dr. Jessica GonzalezBasophils/100 WBC (Bld)0.4 %Normal0.2-2.0The [facility] Comment on above:Performed By: #### CBC #### [facility] [address] [place] [address] Dr. Jessica Golden #0.0 103/ulNormal0.0-0.7The [facility] CenterComment on above: Performed By: #### CBC #### [facility] [address] [place], [place] [id number] Dr. Jessica Gaviriaosinophils/100 WBC (Bld)0.0 %Critically low0.9-7.0The [facility] CenterComment on above:Performed By: #### CBC #### [facility] [address] [place] [address] Dr. Jessica Gaviriarythrocyte distribution width (RBC) [Ratio]12.8 %Dpggrw67.0-15.0 The [facility] CenterComment on above:Performed By: #### CBC #### [facility] [address] [place] [address] Dr. Jessica GonzalezHematocrit (Bld) [Volume fraction]37.2 %Ozspzo54.0-48.0The [facility] CenterComment on above:Performed By: #### CBC #### [facility] [address] [place] [address] Dr. Jessica GonzalezHemoglobin (Bld) [Mass/Vol]12.6 g/aNTjleyx59.0-16.0The [facility] CenterComment on above:Performed By: #### CBC #### [facility] [address] [place] [address] Dr. Jessica Davidson #0.22 10e3/ulCritically high0.00-0.03[facility] Comment on above:Performed By: #### CBC #### [facility] [address] [place] [address] Dr. Jessica Davidson %1.2 %Critically high0.0-0.5The [facility] CenterComment on above:Performed By: #### CBC #### [facility] [address] [place] [address] Dr. Jessica PateMPH #0.8 103/ulCritically low1.2-3.8The [facility] Comment on above:Performed By: #### CBC #### [facility] [address] [place] [address] Dr. Jessica Patemphocytes/100 WBC (Bld)4.2 %Critically low20.5-60.0The [facility] CenterComment on above:Performed By: #### CBC #### [facility] [address] [place] [address] Dr. Jessica España DIFF REQNONormalThe [facility] CenterComment on above: Performed By: #### CBC #### [facility] [address] [place] [address] Dr. Jessica Mead (RBC) [Entitic mass]33.4 juWfzcrt69.7-34.0The [facility] CenterComment on above:Performed By: #### CBC #### [facility] [address] [place] [address] Dr. Jessica Mead (RBC) [Mass/Vol]33.9 g/oIYjjfdu96.9-35.2The [facility] CenterComment on above:Performed By: #### CBC #### [facility] [address] [place] [address] Dr. Jessica Mead (RBC) [Entitic vol]98.7 gTCwdvza35.0-99.0[facility] TownshipComment on above:Performed By: #### CBC #### [facility] [address] [place] [address] Dr. Jessica Manriquez #0.4 103/ulNormal0.3-0.8The [facility] on above:Performed By: #### CBC #### [facility] [address] [place] [address] Dr. Jessica Eastocytes/100 WBC (Bld)2.3 %Normal1.7-12.0[facility] Comment on above:Performed By: #### CBC #### [facility] [address] [place] [address] Dr. Jessica Martin #17.0 103/ulCritically high1.4-6.5The [facility] Comment on above:Performed By: #### CBC #### [facility] [address] [place] [address] Dr. Jessica Valdezutrophils/100 WBC (Bld)91.9 %Critically high43.0-75.0The [facility] HospitalComment on above:Performed By: #### CBC #### [facility] [address] [address] [address] Jessica GonzalezPlatelet mean volume (Bld) [Entitic vol]9.9 fLNormal9.5-13.5The [facility] CenterComment on above:Performed By: #### CBC #### [facility] [address] [address] [address] Jessica GonzalezPLT247 103/ntXajist767-123Zlt [facility] CenterComment on above: Performed By: #### CBC #### [facility] [address] [place] [address] Dr. Jessica GonzalezRBC3.77 106/ulCritically low4.20-5.40The [facility] CenterComment on above:Performed By: #### CBC #### [facility] [address] [place] [address] Dr. Jessica GonzalezWBC18.5 103/ulCritically high4.0-11.0The [facility] CenterComment on above:Performed By: #### CBC #### [facility] [address] [place] [address] Dr. Jessica GonzalezPROF CHEM 8 (BAS METB)on 54-78-6155Zijjg gap [Moles/Vol]15.3 mmol/LNormalThe [facility] CenterComment on above:Performed By: #### CVDTBH #### [facility] [address] [place] [address] Dr. Jessica GonzalezCalcium [Mass/Vol]9.8 mg/dLNormal8.4-10.2The [facility] Comment on above:Performed By: #### CVDTBH #### [facility] [address] [place] [address] Dr. Jessica GonzalezChloride [Moles/Vol]102 mmol/DDucahn06-625Ezp [facility] Comment on above:Performed By: #### CVDTBH #### [facility] [address] [place] [address] Dr. Jessica GonzalezCO2 [Moles/Vol]24.1 mmol/JOcvdvb88.0-30.0[facility] Comment on above:Performed By: #### CVDTBH #### [facility] [address] [address] [address] Jessica GonzalezCreatinine [Mass/Vol]0.83 mg/dLNormal0.52-1.04The [facility] CenterComment on above:Performed By: #### CVDTBH #### [facility] [address] [address] [address] Jessica GaviriaGFR-AF JAPANESE>60Normal>=60The [facility] CenterComment on above:Performed By: #### CVDTBH #### [facility] [address] [place] [address] Dr. Jessica GaviriaGFR-NON AF JAPANESE>60Normal>=60The [facility] CenterComment on above:Performed By: #### CVDTBH #### [facility] [address] [place] [address] Dr. Jessica GonzalezGlucose [Mass/Vol]165 mg/dLCritically nizi41-126Jrb [facility] CenterComment on above:Performed By: #### CVDTBH #### [facility] [address] [place] [address] Dr. Jessica GonzalezPotassium [Moles/Vol]3.4 mmol/LNormal3.4-5.0[facility] Comment on above:Performed By: #### CVDTBH #### [facility] [address] [address] [address] Jessica GonzalezSodium [Moles/Vol]138 mmol/NDgccjq716-659Oik [facility] Comment on above:Performed By: #### CVDTBH #### [facility] [address] [address] [address] Jessica GonzalezUrea nitrogen [Mass/Vol]21.0 mg/dLCritically high7.0-17.0The [facility] CenterComment on above:Performed By: #### CVDTBH #### [facility] [address] [place] [address] Dr. Jessica GonzalezUrea nitrogen/Creatinine [Mass ratio]25.3 mg/mgNormalThe [facility] CenterComment on above:Performed By: #### CVDTBH #### [facility] [address] [place] [address] Dr. Jessica GonzalezRESPIRATORY PANEL PLUSon 14-07-0392PanquuobujCcx detectedNormal NOT DETECTEDThe [facility] CenterComment on above:Performed By: #### SPUTGS #### [facility] [address] [place] [address] Dr. Jessica Penn ParapertusisNot detectedNormalNOT DETECTEDThe [facility] CenterComment on above:Performed By: #### SPUTGS #### [facility] [address] [place] [address] Dr. Jessica Penn PertussisNot detectedNormalNOT DETECTEDThe [facility] on above:Performed By: #### SPUTGS #### [facility] [address] [place] [address] Dr. Jessica GonzalezChlamydia PneumoniaeNot detectedNormalNOT DETECTEDThe [facility] CenterComment on above:Performed By: #### SPUTGS #### [facility] [address] [place] [address] Dr. Jessica GonzalezCoronavirus 229ENot detectedNormalNOT DETECTEDThe [facility] CenterCommymichigan medical center [facility] on above:Performed By: #### SPUTGS #### [facility] [address] [place] [address] Dr. Jessica GonzalezCoronavirus ZJN5Olv detectedNormalNOT DETECTEDThe [facility] CenterComment on above:Performed By: #### SPUTGS #### [facility] [address] [place] [address] Dr. Jessica GonzalezCoronavirus OP88Fqx detectedNormalNOT DETECTEDThe [facility] CenterComment on above:Performed By: #### SPUTGS #### [facility] [address] [place] [address] Dr. Jessica GonzalezCoronavirus CD96Flp detectedNormalNOT DETECTEDThe [facility] CenterComment on above:Performed By: #### SPUTGS #### [facility] [address] [place] [address] Dr. Jessica Berg H1 2009Not detectedNormalNOT DETECTEDThe [facility] CenterComment on above:Performed By: #### SPUTGS #### [facility] [address] [address] [address] Jessica Berg H3Not detectedNormalNOT DETECTEDThe [facility] Comment on above:Performed By: #### SPUTGS #### [facility] [address] [address] [address] Jessica Powell BNot detectedNormalNOT DETECTEDThe [facility] Comment on above:Performed By: #### SPUTGS #### [facility] [address] [address] [address] Jessica CarrilloneumovirusNot detectedNormalNOT DETECTEDThe [facility] CenterCommymichigan [facility] on above:Performed By: #### SPUTGS #### [facility] [address] [address] [address] Jessica Garcia. PneumoniaeNot detectedNormalNOT DETECTEDThe [facility] CenterCommymichigan [facility] [place] on above:Performed By: #### SPUTGS #### [facility] [address] [address] [address] Jessica Renteria 1Not detectedNormalNOT DETECTEDThe [facility] CenterCommymichigan medical [facility] [place] on above:Performed By: #### SPUTGS #### [facility] [address] [address] [address] Jessica Renteria 2Not detectedNormalNOT DETECTEDThe [facility] CenterCommymichigan medical [facility] [place] on above:Performed By: #### SPUTGS #### [facility] [address] [address] [address] Jessica Renteria 3Not detectedNormalNOT DETECTEDThe [facility] CenterCommymichigan medical center [place] on above:Performed By: #### SPUTGS #### [facility] [address] [address] [address] Jessica Renteria 4Not detectedNormalNOT DETECTEDThe [facility] CenterCommymichigan medical center [place] on above:Performed By: #### SPUTGS #### [facility] [address] [place] [address] Dr. Jessica Griffin/EnterovirusNot detectedNormalNOT DETECTEDThe [facility] CenterComment on above:Performed By: #### SPUTGS #### [facility] [address] [place] [address] Dr. Jessica Watson Header 1RESPIRATORY PANEL: VIRUSESSelect Medical Specialty [facility] Comment on above:Performed By: #### SPUTGS #### [facility] [address] [place] [address] Dr. Jessica Watson Header 2RESPIRATORY PANEL: BACTERIANoMercy Health Perrysburg HospitalComment on above:Performed By: #### SPUTGS #### [facility] [address] [place] [address] Dr. Jessica Traylor detectedNormalNOT DETECTEDThe [facility] CenterComment on above:Performed By: #### SPUTSALIMA #### [facility] [address] [place] [address] Dr. Jessica Momin-CoV-2 (COVID-19) RNA MASON+probe Ql (Unsp spec)Not detected NormalNOT DETECTEDThe [facility] CenterComment on above:Performed By: #### SPUTSALIMA #### [facility] [address] [place] [address] Dr. Jessica Dowling W MANUAL DIFFon [id number] LYMPH #NormalKettering Health Washington TownshipCommymichigan medical center [facility]a on above:Performed By: #### NOEMÍTBH #### [facility] [address] [place] [address] Dr. Jessica ChouYPICAL LYMPH %NormalThe [facility] CenterComment on above: Performed By: #### NOEMÍTBH #### [facility] [address] [place] [address] Dr. Jessica Zaidi #1.2 103/ulCritically high0.0-0.3TGreen [facility] Comment on above:Performed By: #### NOEMÍTBH #### [facility] [address] [place] [address] Dr. Jessica Zaidi %7 %Critically high0-5The [facility] CenterComment on above: Performed By: #### CVDTBH #### [facility] [address] [place] [address] Dr. Jessica Jaime #0.00 103/ulNormal0.00-0.10The [facility] HospitalComment on above:Performed By: #### CVDTBH #### [facility] [address] [place] [address] Dr. Jessica Jaime %0.0 %Critically low0.2-2.0The [facility] HospitalComment on above:Performed By: #### CVDTBH #### [facility] [address] [place] [address] Dr. Jessica Sellers #NormalThe [facility]ham HospitalComment on above:Performed By: #### CVDTBH #### [facility] [address] [place] [address] Dr. Jessica Sellers %NormalThe [facility] HospitalComment on above:Performed By: #### CVDTBH #### [facility] [address] [place] [address] Dr. Jessica GonzalezCORRECTED WBCNormal4.0-11.0The [facility] CenterComment on above: Performed By: #### CVDTBH #### [facility] [address] [place] [address] Dr. Jessica Chowdhury #0.00 103/ulNormal0.00-0.70The [facility] CenterComment on above:Performed By: #### CVDTBH #### [facility] [address] [place] [address] Dr. Jessica Chowdhury%0.0 %Critically low0.9-7.0The [facility] HospitalComment on above:Performed By: #### CVDTBH #### [facility] [address] [place] [address] Dr. Jessica GonzalezHCT37.1 %Yqlwve09.0-48.0The [facility] CenterComment on above: Performed By: #### CVDTBH #### [facility] [address] [place] [address] Dr. Jessica GonzalezHGB12.3 g/wxYgohbo36.0-16.0The [facility] CenterComment on above: Performed By: #### CVDTBH #### [facility] [address] [place] [address] Dr. Jessica Rodriguez #1.17 103/ulCritically low1.20-3.80The [facility] Comment on above:Performed By: #### CVDTBH #### [facility] [address] [address] [address] Jessica Rodriguez%7.0 %Critically low20.5-60.0The [facility] CenterComment on above:Performed By: #### CVDTBH #### [facility] [address] [place] [address] Dr. Jessica MeadH33.2 rrFtihbe69.7-34.0The [facility] CenterComment on above: Performed By: #### CVDTBH #### [facility] [address] [place] [address] Dr. Jessica MeadHC33.2 g/thUhggsl73.9-35.2The [facility] CenterComment on above:Performed By: #### CVDTBH #### [facility] [address] [place] [address] Dr. Jessica MeadV100.3 fLCritically high81.0-99.0The [facility] CenterComment on above:Performed By: #### CVDTBH #### [facility] [address] [place] [address] Dr. Jessica IbrahimOCYTE #NormalThe [facility] CenterComment on above: Performed By: #### CVDTBH #### [facility] [address] [place] [address] Dr. Jessica IbrahimOCYTE %NormalThe [facility] CenterComment on above: Performed By: #### CVDTBH #### [facility] [address] [place] [address] Dr. Jessica Downing#0.67 103/ulNormal0.30-0.80The [facility] CenterComment on above:Performed By: #### CVDTBH #### [facility] [address] [address] [address] Jessica Downing%4.0 %Normal1.7-12.0The [facility] CenterComment on above: Performed By: #### CVDTBH #### [facility] [address] [place] [address] Dr. Jessica GonzalezMPV9.5 fLNormal9.5-13.5The [facility] CenterComment on above: Performed By: #### CVDTBH #### [facility] [address] [place] [address] Dr. Jessica De AndaOCYTE #NormalThe [facility] CenterComment on above:Performed By: #### CVDTBH #### [facility] [address] [place] [address] Dr. Jessica De AndaOCYTE %NormalThe [facility] CenterComment on above:Performed By: #### CVDTBH #### [facility] [address] [place] [address] Dr. Jessica GonzalezNRBCNormalThe [facility] CenterComment on above:Performed By: #### CVDTBH #### [facility] [address] [place] [address] Dr. Jessica SahuT206 103/kfNqhrri117-836Rzi [facility] CenterComment on above: Performed By: #### CVDTBH #### [facility] [address] [place] [address] Dr. Jessica GonzalezRBC3.70 106/ulCritically low4.20-5.40The [facility] CenterComment on above:Performed By: #### CVDTBH #### [facility] [address] [place] [address] Dr. Jessica GonzalezRDW12.4 %Offcud03.0-15.0The [facility] CenterComment on above: Performed By: #### CVDTBH #### [facility] [address] [place] [address] Dr. Jessica Raygoza #13.69 103/ulCritically high1.40-6.50[facility] Comment on above:Performed By: #### CVDTBH #### [facility] [address] [place] [address] Dr. Jessica Raygoza %82.0 %Critically high43.0-75.0The [facility] CenterComment on above:Performed By: #### CVDTBH #### [facility] [address] [place] [address] Dr. Jessica GonzalezWBC16.7 103/ulCritically high4.0-11.0The [facility] CenterComment on above:Performed By: #### CVDTBH #### [facility] [address] [place] [address] Dr. Jessica LucasF CHEM 8 (BAS METB)on 48-19-8414Ojlxn gap [Moles/Vol]14.4 mmol/LNormalThe [facility] CenterComment on above:Performed By: #### SPUTGS #### [facility] [address] [place] [address] Dr. Jessica GonzalezCalcium [Mass/Vol]9.8 mg/dLNormal8.4-10.2[facility] Comment on above:Performed By: #### SPUTGS #### [facility] [address] [place] [address] Dr. Jessica GonzalezChloride [Moles/Vol]100 mmol/GNqzmrc06-246XkvKettering Health [facility] Comment on above:Performed By: #### SPUTGS #### [facility] [address] [place] [address] Dr. Jessica GonzalezCO2 [Moles/Vol]25.7 mmol/BJhzapa23.0-30.0[facility] Comment on above:Performed By: #### SPUTGS #### [facility] [address] [place] [address] Dr. Jessica GonzalezCreatinine [Mass/Vol]0.87 mg/dLNormal0.52-1.04The [facility] CenterComment on above:Performed By: #### SPUTGS #### [facility] [address] [place] [address] Dr. Jessica GaviriaGFR-AF JAPANESE>60Normal>=60The [facility] CenterComment on above:Performed By: #### SPUTGS #### [facility] [address] [place] [address] Dr. Jessica GaviriaGFR-NON AF JAPANESE>60Normal>=60The [facility] CenterComment on above:Performed By: #### SPUTGS #### [facility] [address] [place] [address] Dr. Jessica GonzalezGlucose [Mass/Vol]194 mg/dLCritically fnwq54-802Sdq [facility] CenterComment on above:Performed By: #### SPUTGS #### [facility] [address] [place] [address] Dr. Jessica GonzalezPotassium [Moles/Vol]3.1 mmol/LCritically low3.4-5.0[facility] TownshipComment on above:Performed By: #### SPUTGS #### [facility] [address] [place] [address] Dr. Jessica GonzalezSodium [Moles/Vol]137 mmol/MMlmvqs086-001IjjKettering Health [facility] Comment on above:Performed By: #### SPUTGS #### [facility] [address] [place] [address] Dr. Jessica GonzalezUrea nitrogen [Mass/Vol]17.0 mg/dLNormal7.0-17.0[facility] TownshipCommymichigan medical center [place] on above:Performed By: #### SPUTGS #### [facility] [address] [place] [address] Dr. Jessica GonzalezUrea nitrogen/Creatinine [Mass ratio]19.5 mg/mgNoMercy Health Perrysburg HospitalCommymichigan medical center [place] on above:Performed By: #### SPUTGS #### [facility] [address] [place] [address] Dr. Jessica PorterUTUM GRAM STAINon 32-00-0682VYBFXZAWWxuvviOfo[address] [place] [address] Comment on above:Performed By: #### SPUTGS #### [facility] [address] [place] [address] Dr. Jessica PughPHTHEROIDSSelect Medical Specialty Hospital - TrumbullComment on above:Performed By: #### SPUTGS #### [facility] [address] [address] [address] Lopez ChangEPITHELIALS<25[facility] - TrumbullComment on above: Performed By: #### SPUTGS #### [facility] [address] [place] [address] Dr. Jessica GonzalezFUNGAL ELEMENTSSelect Medical Specialty Hospital - TrumbullComment on above: Performed By: #### SPUTGS #### [facility] [address] [address] [address] Jessica Leslie NEG BACILLISelect Medical Specialty Hospital - TrumbullComment on above: Performed By: #### SPUTGS #### [facility] [address] [place] [address] Dr. Jessica Leslie NEG DIPPLOCOCCISelect Medical Specialty Hospital - TrumbullComment on above: Performed By: #### SPUTGS #### [facility] [address] [address] [address] Jessica Leslie POS BACILLIRARENormalKettering Health Washington TownshipComment on above: Performed By: #### SPUTGS #### [facility] [address] [address] [address] Jessica Leslie POSITIVE COCCIFEWSelect Medical Specialty Hospital - TrumbullComment on above:Performed By: #### SPUTGS #### [facility] [address] [place] [address] Dr. Jessica Barrow (Bld) [#/Vol]10*3/uLSelect Medical Specialty Hospital - TrumbullComment on above:Performed By: #### SPUTGS #### [facility] [address] [place] [address] Dr. Jessica GonzalezXR CHEST 2 Von 82-31-0638XW CHEST 2 VEXAM: XR CHEST 2 V [...] Electronically authenticated by: CALI BRITO Date: 2021-06-08 06:56[facility] AUTO DIFFon [id number] #0.0 103/ulNormal0.0-0.1The [facility] CenterComment on above:Performed By: #### CBC #### [facility] [address] [place] [address] Dr. Jessica GonzalezBasophils/100 WBC (Bld)0.3 %Normal0.2-2.0The [facility] Comment on above:Performed By: #### CBC #### [facility] [address] [place] [address] Dr. Jessica Golden #0.1 103/ulNormal0.0-0.7The [facility] CenterComment on above: Performed By: #### CBC #### [facility] [address] [address] [address] Jessica Gaviriaosinophils/100 WBC (Bld)0.5 %Critically low0.9-7.0The [facility] CenterComment on above:Performed By: #### CBC #### [facility] [address] [place] [address] Dr. Jessica Gaviriarythrocyte distribution width (RBC) [Ratio]12.4 %Shrfbe35.0-15.0 The [facility] CenterComment on above:Performed By: #### CBC #### [facility] [address] [place] [address] Dr. Jessica GonzalezHematocrit (Bld) [Volume fraction]40.5 %Xztqss63.0-48.0The [facility] CenterComment on above:Performed By: #### CBC #### [facility] [address] [place] [address] Dr. Jessica GonzalezHemoglobin (Bld) [Mass/Vol]14.0 g/lHMeocke35.0-16.0The [facility] HospitalComment on above:Performed By: #### CBC #### [facility] [address] [address] [address] Jessica Davidson #0.26 10e3/ulCritically high0.00-0.03The [facility] Comment on above:Performed By: #### CBC #### [facility] [address] [address] [address] Jessica Davidson %1.7 %Critically high0.0-0.5The [facility] CenterComment on above:Performed By: #### CBC #### [facility] [address] [address] [address] Jessica Bonds #0.7 103/ulCritically low1.2-3.8The [facility] Comment on above:Performed By: #### CBC #### [facility] [address] [place] [address] Dr. Jessica Galvanhocytes/100 WBC (Bld)4.6 %Critically low20.5-60.0The [facility] CenterComment on above:Performed By: #### CBC #### [facility] [address] [place] [address] Dr. Jessica España DIFF REQNONormalThe [facility] CenterComment on above: Performed By: #### CBC #### [facility] [address] [address] [address] Jessica Mead (RBC) [Entitic mass]34.2 pgCritically high26.7-34.0The [facility] CenterComment on above:Performed By: #### CBC #### [facility] [address] [place] [address] Dr. Jessica Mead (RBC) [Mass/Vol]34.6 g/tZMkeghq39.9-35.2The [facility] CenterComment on above:Performed By: #### CBC #### [facility] [address] [place] [address] Dr. Jessica Mead (RBC) [Entitic vol]99.0 tSNqeiht58.0-99.0The [facility] CenterComment on above:Performed By: #### CBC #### [facility] [address] [place] [address] Dr. Jessica Manriquez #0.4 103/ulNormal0.3-0.8The [facility] CenterComment on above:Performed By: #### CBC #### [facility] [address] [place] [address] Dr. Jessica Eastocytes/100 WBC (Bld)2.5 %Normal1.7-12.0[facility] Comment on above:Performed By: #### CBC #### [facility] [address] [place] [address] Dr. Jessica Martin #14.0 103/ulCritically high1.4-6.5The [facility] Comment on above:Performed By: #### CBC #### [facility] [address] [place] [address] Dr. Jessica Valdezutrophils/100 WBC (Bld)90.4 %Critically high43.0-75.0The [facility] CenterComment on above:Performed By: #### CBC #### [facility] [address] [place] [address] Dr. Jessica Quezada mean volume (Bld) [Entitic vol]9.6 fLNormal9.5-13.5ThChillicothe VA Medical CenterComment on above:Performed By: #### CBC #### [facility] [address] [place] [address] Dr. Jessica GonzalezPLT168 103/wjRafuag048-082Zrf [facility] CenterComment on above: Performed By: #### CBC #### [facility] [address] [place] [address] Dr. Jessica GonzalezRBC4.09 106/ulCritically low4.20-5.40The [facility] CenterComment on above:Performed By: #### CBC #### [facility] [address] [place] [address] Dr. Jessica GonzalezWBC15.5 103/ulCritically high4.0-11.0The [facility] CenterComment on above:Performed By: #### CBC #### [facility] [address] [place], [place] [address] Dr. Jessica Alvarenga CHEST WO W CONon 23-47-6527NZE CHEST WO W CONCTA OF THE CHEST [...] Electronically authenticated by: MULU GARCIA Date: 2021-06-07 05:08[facility] TrumbullCULTURE BLOODon 37-77-1903Dtultnizygu examination of blood, cultureCulture Observations: No growth at 5 days.NormalThe [facility] CenterComment on above:Performed By: #### BMP #### [facility] [address] [place], [place] [address] Dr. Jessica Esquiveld-19 PCR (CVDTB)on 59-66-3752LDFM-CoV-2 (COVID-19) RNA MASON+probe Ql (Unsp spec)Not detectedNormalNOT DETECTEDThe [facility] Comment on above:Result Comment: When diagnostic testing [...] for this test is supported by the Operations Intelligence Superintendent of Health and Human Service's declaration that [...] longer be used).Performed By: #### CVDTBH #### [facility] [address] [place] [address] Dr. Jessica GonzalezLACTATE/LACTIC ACIDon 13-79-0816Aklckzh [Moles/Vol]1.8 mmol/L Normal0.7-2.0The [facility] CenterComment on above:Performed By: #### CVDTBH #### [facility] [address] [place] [address] Dr. Jessica GonzalezPROF 14(COMP METB)on 95-07-4913Pioqfrd [Mass/Vol]3.1 g/dL Critically low3.5-5.0The [facility] CenterComment on above:Performed By: #### CMP #### [facility] [address] [place] [address] Dr. Jessica GonzalezAlbumin/Globulin [Mass ratio]0.8 {ratio}NormalThe [facility] CenterComment on above:Performed By: #### CMP #### [facility] [address] [place] [address] Dr. Jessica Hartman [Catalytic activity/Vol]89 U/GYrfluu59-494Mud [facility] CenterComment on above:Performed By: #### CMP #### [facility] [address] [place] [address] Dr. Jessica Asif [Catalytic activity/Vol]21 U/LNormal9-52The [facility] Comment on above:Performed By: #### CMP #### [facility] [address] [address] [address] Jessica Mandujano gap [Moles/Vol]13.2 mmol/LNormalK[facility] Comment on above:Performed By: #### CMP #### [facility] [address] [address] [address] Jessica GonzalezAST [Catalytic activity/Vol]15 U/FYspxya57-67Mei [facility] CenterComment on above:Performed By: #### CMP #### [facility] [address] [address] [address] Jessica GonzalezBilirubin [Mass/Vol]1.2 mg/dLNormal0.2-1.3The [facility] Comment on above:Performed By: #### CMP #### [facility] [address] [place] [address] Dr. Jessica GonzalezCalcium [Mass/Vol]9.0 mg/dLNormal8.4-10.2[facility] Comment on above:Performed By: #### CMP #### [facility] [address] [place] [address] Dr. Jessica GonzalezChloride [Moles/Vol]102 mmol/SNkdgnz72-825TblKettering Health [facility] Township Comment on above:Performed By: #### CMP #### [facility] [address] [place] [address] Dr. Jessica GonzalezCO2 [Moles/Vol]27.4 mmol/RUochgi13.0-30.0[facility] Comment on above:Performed By: #### CMP #### [facility] [address] [address] [address] Jessica GonzalezCreatinine [Mass/Vol]1.05 mg/dLCritically high0.52-1.04The [facility] CenterComment on above:Performed By: #### CMP #### [facility] [address] [place] [address] Dr. Jessica GaviriaGFR-AF JAPANESE>60Normal>=60The [facility] CenterComment on above:Performed By: #### CMP #### [facility] [address] [place] [address] Dr. Jessica GaviriaGFR-NON AF XXGEDYFJ38 mL/min/1.75f6Wimygdapkc low>=60The [facility] CenterComment on above:Performed By: #### CMP #### [facility] [address] [address] [address] Jessica GonzalezGlobulin (S) [Mass/Vol]3.9 g/dLNormGlenbeigh HospitalComment on above:Performed By: #### CMP #### [facility] [address] [address] [address] Jessica GonzalezGlucose [Mass/Vol]133 mg/dLCritically gcxp95-565Fjh [facility] CenterComment on above:Performed By: #### CMP #### [facility] [address] [place] [address] Dr. Jessica GonzalezPotassium [Moles/Vol]3.6 mmol/LNormal3.4-5.0The [facility] Comment on above:Performed By: #### CMP #### [facility] [address] [place] [address] Dr. Jessica GonzalezProtein [Mass/Vol]7.0 g/dLNormal6.1-8.2The [facility] Comment on above:Performed By: #### CMP #### [facility] [address] [place] [address] Dr. Jessica GonzalezSodium [Moles/Vol]139 mmol/RMdgdji517-810Ird [facility] Comment on above:Performed By: #### CMP #### [facility] [address] [place] [address] Dr. Jessica GonzalezUrea nitrogen [Mass/Vol]14.0 mg/dLNormal7.0-17.0The [facility] CenterComment on above:Performed By: #### CMP #### [facility] [address] [place] [address] Dr. Jessica GonzalezUrea nitrogen/Creatinine [Mass ratio]13.3 mg/mgNormGlenbeigh HospitalComment on above:Performed By: #### CMP #### [facility] [address] [place] [address] Dr. Yilan ChangXR CHEST 1 Von [id number] CHEST 1 VEXAM: XR CHEST 1 V [...] Electronically authenticated by: TERELL BENITEZ Date: 2021-06-07 02:24[facility] Vital Signs Date TimeVital SignValuePerforming NzprvfrspSwacsmld53-28-9631 13:44-0400Body lxgafv639.7 cmPiter Cleary MD Work Phone: [facility] HospitalOpgyxevbia12-93-5678 13:44-0400Body mass index (BMI) [Ratio]31.63 kg/m2Piter Cleary MD Work Phone: [facility] HospitalXsoueapgrk15-08-8005 13:44-0400Body temperature 97.3 [degF]Piter Cleary MD Work Phone: [facility] HospitalXtghwcgmeu30-85-0172 13:44-0400Body ruslrn73.35 kgPiter Cleary MD Work Phone: [facility] HospitalIenmzbholw86-67-8477 13:44-0400Diastolic blood nwoosvrb87 mm[Hg]Piter Cleary MD Work Phone: [facility] HospitalIasgxgakqm84-30-1258 13:44-0400Heart rate78 /min Piter Cleary MD Work Phone: [facility] HospitalMdflcnlgis34-44-7538 13:44-0400Respiratory rate20 /minPiter Cleary MD Work Phone: [facility] HospitalCzepymcjxx25-49-5262 13:44-1934YpV0% (BldA) [Mass fraction]97 %Piter Cleary MD Work Phone: [facility] HospitalZprzofedhq37-65-9169 13:44-0400Systolic blood fqroqiau720 mm[Hg]Piter Cleary MD Work Phone: [facility] HospitalTpzkzzzldi47-82-5970 11:37-0400Body edmfdv731.7 cmPiter Cleary MD Work Phone: [facility] HospitalVyxjvtrxiw79-30-2160 11:37-0400Body mass index (BMI) [Ratio]32.39 kg/m2Piter Cleary MD Work Phone: [facility] HospitalZygrkxgsll78-48-0466 11:37-0400Body temperature 97.11 [degF]Piter Cleary MD Work Phone: [facility] HospitalSmmojwlkge75-39-1064 11:37-0400Body .62 kgPiter Cleary MD Work Phone: [facility] HospitalKrvbnzbkqu70-15-0728 11:37-0400Diastolic blood bbucaoyd61 mm[Hg]Piter Cleary MD Work Phone: [facility] HospitalObzlyuumpb47-64-0725 11:37-0400Heart rate61 /min Piter Cleary MD Work Phone: [facility] HospitalPolkmbfact03-00-6483 11:37-0400Respiratory rate20 /minPiter Cleary MD Work Phone: [facility] HospitalZlynaauucd96-28-7236 11:37-6691GxL4% (BldA) [Mass fraction]97 %Piter Cleary MD Work Phone: [facility] HospitalMznqxhlgom47-11-3335 11:37-0400Systolic blood mm[Hg]Piter Cleary MD Work Phone: [facility] HospitalFpobwpdcxf58-39-4964 09:22-0500Body dauoyo857.7 cmPiter Cleary MD Work Phone: [facility] HospitalYubhbhdknd92-99-5970 09:22-0500Body mass index (BMI) [Ratio]32.08 kg/m2Piter Cleary MD Work Phone: [facility] HospitalItlituevkg15-41-8373 09:22-0500Body temperature 97.11 [degF]Piter Cleary MD Work Phone: [facility] HospitalQdpynnwygd91-00-5528 09:22-0500Body istzqu31.71 kgPiter Cleary MD Work Phone: [facility] HospitalCjrtckdqbg46-29-3941 09:22-0500Diastolic blood eklkmeoz48 mm[Hg]Piter Cleary MD Work Phone: [facility] HospitalHinndorsol30-32-9098 09:22-0500Heart rate91 /min Piter Cleary MD Work Phone: [facility] HospitalPvunaqjllq55-10-1926 09:22-0500Respiratory rate20 /minPiter Cleary MD Work Phone: [facility] HospitalPsikhfgzfy24-51-4827 09:22-3418LfR3% (BldA) [Mass fraction]97 %Piter Cleary MD Work Phone: [facility] HospitalWdrteszptg87-06-2268 09:22-0500Systolic blood igzhmfei756 mm[Hg]Piter Cleary MD Work Phone: [facility] HospitalMbqdvhersu13-99-3108 10:42-0400Body .72 cmThe [facility]08-04-2024 10:42-0400Body mass index (BMI) [Ratio]29.8 kg/z9JllwlkflfThe [facility] Hospital08-04-2024 10:42-0400Body eyvhkgwmlte87.2 [degF][facility]08-04-2024 10:42-0400Body ypnkmd29.07 kgThe [facility]08-04-2024 10:42-0400Diastolic blood aymbsaqz21 mm[Hg][facility]08-04-2024 10:42-0400 Heart rate75 /[facility]08-04-2024 10:42-0400 Respiratory rate16 /[facility]08-04-2024 10:42-0400 SaO2% (BldA) [Mass fraction]96 %[facility]08-04-2024 10:42-0400Systolic blood qmjfydqo039 mm[Hg][facility] 06-03-2023 14:45-0500Body hmaazr906.72 cmAdenny Shields Other [place] [employer] Other 12-31-2023 14:45-0500Body mass index (BMI) [Ratio] 31.17 kg/r2RdigrErma Shields Other noWev[employer] Other 12-31-2023 14:45-0500Body peupuhykzju96.1 [degF]Erma Shields Other noCrowdComp[employer] Other 12-31-2023 14:45-0500Body zgbsci92.99 kgErma Shields Other noWevod Other 12-31-2023 14:45-0500Respiratory rate18 /minErma Cornelius Other [facility] [employer] Other 12-31-2023 14:45-9596NjW6% (BldA) [Mass fraction]95 % Erma Shields Other [employer] Other Encounters Encounter DateEncounter TypeCare ProviderFacilityStart: 12-30-2024 End: 62-32-0049Zmnxkc flowsAngelique Cleary MD Work Phone: [facility] CWM FMStart: 12-30-2024 End: 27-93-1437Gmwwbk flowsheetPiter Cleary MD Work Phone: [facility] CWM FMStart: 12-30-2024 End: 22-57-6710Ccayoz outpatient visit 15 minutesPiter Cleary MD Work Phone: [facility] CW FMComment on above:Lightheadedness (Primary Dx); Seasonal allergic rhinitis due to pollenStart: 12-30-2024 End: 11-95-2654xuzbfgsqbzYHZT NADERERNot AvailableStart: 11-07-2024 End: 94-38-0806Wgnsseyme Result EncounterPiter Cleary MD Work Phone: [facility] External Department UnsolicitedStart: 11-07-2024 End: 58-89-0453Zmqafvxcg Result EncounterPiter Cleary MD Work Phone: [facility] External Department UnsolicitedStart: 11-03-2024 End: 84-93-8576Ezchmq flowsAngelique Cleary MD Work Phone: [facility] CWM FMStart: 11-03-2024 End: 78-87-9544Vjzzbv Jackson Cleary MD Work Phone: [facility] CWM FMStart: 11-03-2024 End: 50-04-2797Xubadmx encounter procedurePiter Cleary MD Work Phone: [facility] Work Phone: Start: 11-03-2024 End: 69-31-5310Azyybx follow up visit related to original Nickie [...] current use of medication; Pre-diabetesStart: 11-03-2024 End: 31-33-1925cmslocqapuAKWG NADERERNot AvailableStart: 07-04-2024 End: 67-53-6217Jyqrwalqx Result EncounterGeneric External Data ProviderNOMS External Department UnsolicitedStart: 07-04-2024 End: 02-27-7588Djonglynr Result EncounterGeneric External Data ProviderNOMS External Department UnsolicitedStart: 06-05-2024 End: 29-95-0150Zbokwu Jackson Cleary MD Work Phone: [facility] CWM FMStart: 06-05-2024 End: 58-95-4877Uvuvke flowsheetPiter Cleary MD Work Phone: [facility] CWM FMStart: 06-05-2024 End: 53-21-1569Deybgm outpatient visit 25 minutesPiter Cleary MD Work Phone: [facility] CWM FMComment on above:Benign hypertension (CMS/HCC) (Primary Dx); SHAN (generalized anxiety disorder) (CMS/HCC); Chronic obstructive pulmonary disease, unspecified COPD type (CMS/HCC); Lower extremity edema; Gastroesophageal reflux disease without esophagitisStart: 06-05-2024 End: 53-93-5986htsxagaqgxJRCX NADERERNot AvailableStart: 02-05-2024 End: 75-36-8538Pywcww flowsheetKylie S [employer] FINISHER APPRENTICE-S Work Phone: [facility] FNR BHStart: 02-05-2024 End: 34-14-9416Ppgfmd flowsheetKylie S Stella WOOD FINISHER APPRENTICE-S Work Phone: [facility] FNR BHStart: 02-05-2024 End: 56-10-5901sfajdrbyaqUUMZP S LAUGHLINNot AvailableStart: 01-17-2024 End: 34-15-6586satoaulvgpAGFGL S LAUGHLINNot AvailableStart: 01-10-2024 End: 89-30-3786qzdapldezdECCTL S LAUGHLINNot AvailableStart: 01-06-2024 End: 11-08-7751ktguuhoiudRbijlsmxbLancaster [facility] Hospital Work Phone: Start: 01-06-2024 End: 45-41-2173Qhbteog encounter procedureVidant [facility] Work Phone: Start: 06-03-2023 End: 38-27-6178ohsusbivtlEcvqh Keller Other [employer] Other Start: 54-25-9524Ikrmho outpatient new 30 minutesAmber KellerFPG Urgent Care ClydeStart: 06-07-2021 End: 34-19-5963Lepquwkuuy and management of inpatientDR REAGAN MACDONALDFacility:H1 Start: 05-16-2021 End: 30-71-4130ppugigreqyGJ ASTRID Vance ROBINFacility:H1 Procedures DateProcedureProcedure DetailPerforming ClinicianStart: 30-84-0308NCJ CBC WITH AUTO DIFFMarc Madiha SPENCER Work Phone: Start: 18-66-3743GU LUNG SCREENING LOW DOSEGeneric External Data ProviderStart: 02-05-2024 End: 72-68-3808Fiaznzevqsdbk w/patient 60 minutesGAD (generalized anxiety disorder) ([facility]/HCC)Magui BOWDEN Work Phone: Comment on above:SHAN (generalized anxiety disorder) ([facility]) Plan of Treatment DateCare ActivityDetailAuthorStart: 06-02-2026Medicare Annual Wellness (AWV) Medicare Annual Wellness (AWV)[facility] HealthcareStart: 70-83-0983Sfydxdpod for malignant neoplasm of colonNOMS HealthcareStart: 05-07-2025 End: 42-66-0921Iqfezas encounter iazdacpjq36/04/2025 9:00 AM EST Office Visit [facility] [address] [place] [address] Piter Cleary MD [address] [place] [address] [facility] CW FMStart: 76-87-0353Ytrzmwtrp vaccinationInfluenza Vaccine (#1)[facility] HealthcareStart: 12-30-2024 End: 60-01-2145Wikwqhq encounter mrigrfuof29/29/2025 1:45 PM EDT Office Visit [facility] [address] [place] [address] Piter Cleary MD [address] [place] [address] [facility] FMComment on above:ArrivedStart: 11-03-2024 End: 54-80-2005Rktpb metabolic 1998 panel - Serum or PlasmaBasic metabolic panel Lab Routine Benign hypertension (CMS/HCC) Expected: 11/03/2024 (Approximate), Expires: 11/03/2025[facility] HealthcareComment on above:Expected: 11/03/2024 (Approximate), Expires: 11/03/2025Start: 11-03-2024 End: 53-48-5784SPY W Auto Differential panel - BloodCBC and differential Lab Routine Encounter for long-term current use of medication Expected: 11/03/2024 (Approximate), Expires: 11/03/2025[facility] HealthcareComment on above:Expected: 11/03/2024 (Approximate), Expires: 11/03/2025Start: 11-03-2024 End: 47-72-2200Ixqtjmuhgd A1c/Hemoglobin.total in BloodHemoglobin A1c Lab Routine Pre-diabetes Expected: 11/03/2024 (Approximate), Expires: 11/03/2025[facility] Healthcare Work Phone: Comment on above:Expected: 11/03/2024 (Approximate), Expires: 11/03/2025Start: 11-03-2024 End: 59-12-2096Avxejvu function 2000 panel - Serum or PlasmaHepatic function panel Lab Routine Encounter for long-term current use of medication Expected: 11/03/2024 (Approximate), Expires: 11/03/2025[facility] HealthcareComment on above: Expected: 11/03/2024 (Approximate), Expires: 11/03/2025Start: 11-03-2024 End: 55-41-1302Ugtht 1996 panel - Serum or PlasmaLipid panel Lab Routine Dyslipidemia (CMS/HCC) Expected: 11/03/2024 (Approximate), Expires: 11/03/2025 [facility] HealthcareComment on above:Expected: 11/03/2024 (Approximate), Expires: 11/03/2025Start: 11-03-2024 End: 36-23-5316Rmrctbnkxnb [Units/volume] in Serum or PlasmaTSH Lab Routine Class 1 obesity due to excess calories with serious comorbidity and body mass index(BMI) of 32.0 to 32.9 in adult Expected: 11/03/2024 (Approximate), Expires: 11/03/2025[facility] HealthcareComment on above:Expected: 11/03/2024 (Approximate), Expires: 11/03/2025Start: 11-03-2024 End: 98-27-1331Uvupyiz encounter procedureNOMS CWM FMComment on above:Arrived Start: 05-29-2025Medicare Annual Wellness (AWV)Medicare Annual Wellness (AWV) [facility]OM HealthcareStart: 24-75-0369Oafwvlnvx for malignant neoplasm of breast MammogramNOMS HealthcareComment on above:Postponed from 1997 (Patient Refused)Start: 06-05-2024 End: 21-03-3834Ameroew encounter procedureNOMS CWM FMComment on above:Arrived Start: 02-05-2024 End: 53-14-9785Wazvdh Work02/05/2024 8:00 AM EDT Social Work [facility] [address] [place] [address] Magui Murdock, JAIRO-S [address] [place] [address] [facility] Comment on above:ArrivedStart: 46-05-1360Nduaaqjaz vaccinationInfluenza Vaccine (#1)[facility] HealthcareStart: 56-78-6838Raqjxczqawnu Vaccine: 65+ Years (1 of 2 - PCV)Pneumococcal Vaccine: 65+ Years (1 of 2 - PCV)[facility] HealthcareStart: 74-12-2036Wuqefmtzg for malignant neoplasm of colonNOAR Healthcare Immunizations Immunization DateImmunizationNotesCare LizkwlagDzwqsyhm66-84-5444Hqhzudezagax Conjugate PCV 20Marc Madiha SPENCER Work Phone: [facility] Xqfuqdvxel55-65-2715UJG, recombinant, protein subunit RSVpreF, adjuvant reconstitu, 120mcg/0.5mL, PF (Arexvy)Piter Cleary MD Work Phone: [facility] HospitalPfruiobrsq86-41-2387rzsqieeht, high dose seasonal, preservative-freePiter Cleary MD Work Phone: [facility] HospitalVqseovzmsc92-86-4039knqtitruh virus vaccine, unspecified formulationPiter Cleary MD Work Phone: noS[facility] HospitalQgkbynsfef96-62-4118iamvyjjfe virus vaccine, unspecified formulationMagui BOWDEN Work Phone: [facility] Payers DatePayer CategoryPayerPolicy [id number] MEDICARE ADVANTAGE ANTHEM MEDICARE ADVANTAGE [id number] 2023-Present [address] [place] [id number] 2024Medicare (Managed Care)[employer]HEM MEDICARE ADVANTAGE Member Subscriber Plan / Payer (Effective 2023-) Name: Marielysue Miranda Relation to Subscriber: Self Name: Miranda Gilliland Payer ID: Not on file Group ID: [id number] Type: Not on file Address: [address] [place] [id number] 1956 [id number] .[id number] [id number] 2.[id number] 2.16.840.1.396257.3.57[id number] 2.16.840.1.557545.3.57[id number] 2.16.840.1.499900.3.57[id number] 2.16.840.1.71[id number] Social History DateTypeDetailFacilityStart: 12-03-2023 End: 79-02-5083Asu [facility] Perfect Escapes Other Start: 35-32-9034Cclmfnc smoking status NHISSmoker (finding)[facility] Hospitaltart: 08-57-9691Igy [facility]tart: 86-23-1199Fmbnkdb smoking status NHISEx-smokerNOMS HealthcareHistory of tobacco useCigarette SmokerNOAR HealthcareStart: 06-12-2023 End: 82-04-5765Nttzdtcjro smoked current (pack per day) - Reported0.5NOAR HealthcareStart: 04-37-4421Sud assigned at birthNot on [facility] [place] Functional Status IxbsJvukwgkemiQybgrwYgailygs53-11-4722Nwufwyl Health Questionnaire 2 item (PHQ- 2) [Reported]Critical access hospital Clinical Notes 05-16-2021 to 12-30-2024 Note Date & QlexBafaWfqkmygk34-97-5031 History of Present illness Narrative* Piter Cleary [...] persist will stop hydrochlorothiazide. documented in this encounterBarnes-Jewish HospitalUqmwulfdyi55-05-1109 History of Present illness Narrative* Piter Cleary [...] EDTAssociated Problem(s): COPD (chronic obstructive pulmonary disease) ([facility]) Breathing stable and continue trelegy. Follow up with weed cooking operator. * Piter Cleary MD - 11/03/2024 12:14 [...] List Items Addressed This Visit Benign hypertension ([facility]) BP controlled and monitor PRN. Relevant Medications lisinopril-hydroCHLOROthiazide 10-12.5 MG tablet Other Relevant Orders Basic metabolic panel Dyslipidemia ([facility]/HCC) Relevant Orders Lipid panel Pre-diabetes Relevant Orders Hemoglobin A1c COPD (chronic obstructive pulmonary disease) ([facility]) Breathing stable and continue trelegy. Follow up with weed cooking operator. Encounter for long-term current use of medication [...] Advised not to smoke. documented in this encounterBarnes-Jewish HospitalEnociybdog05-24-4277 History of Present illness Narrative* Piter Cleary MD - 06/05/2024 10:05 AM ESTAssociated Problem(s): Lower extremity edema Edema stable and elevate legs PRN. * Piter Cleary MD - 06/05/2024 10:05 AM ESTAssociated Problem(s): Gastroesophageal reflux disease Symptoms controlled with medication and continue. * Piter Cleary MD - 06/05/2024 10:04 AM ESTAssociated Problem(s): SHAN (generalized anxiety disorder) ([facility]) Symptoms improved with wellbutrin and continue. * Piter Cleary MD - 06/05/2024 10:04 AM ESTAssociated Problem(s): COPD (chronic obstructive pulmonary disease) (CMS/HCC) Breathing stable and continue trelegy. Refer to local weed cooking operator. * Piter Cleary MD - 06/05/2024 10:04 [...] stable and continue trelegy. Refer to local weed cooking operator. SHAN (generalized anxiety disorder) ([facility]) Symptoms improved with wellbutrin and continue. documented in this encounterBarnes-Jewish HospitalStzuvfbhat01-37-3009 Evaluation note* Encounter Date Diagnosis Assessment Notes Treatment Notes Treatment Clinical Notes May, Mild intermittent asthma with ac [employer] exacerbation (ICD-10 - J45.21) Advised patient that [...] for fever/discomfort, cool mist humidifier. May use Brandywine as needed for cough, do not take any other OTCs while using Brandywine. Use Albuterol inhaler as directed. Patient to follow up with PCP in 2-3 days. Immediate eval if SOB, difficulty breathing, chest pain, dizziness, or other concerning symptoms. Patient verbalizes understanding and is agreeable to treatment plan. 31 Dec, 2023Acute cough (ICD-10 - R05.1) [facility] Other 12-13-2021 NotePROCEDURE: XR GI UPPER AIR [...] Electronically authenticated by: ASTRID KELLY Date: 2021-05-16 09:51[facility]12-13-2021 NotePROCEDURE: XR GI UPPER AIR KUB DUAL [...] Electronically authenticated by: ASTRID KELLY Date: 2021-05-16 09:51[facility]* Diagnosis Onset Date Resolution Status Acute conjunctivitis, bilateral acute [facility] Work Phone: Evaluation note* Diagnosis SHAN (generalized anxiety disorder) ([facility]/HCC) Generalized anxiety disorder documented in this encounter [facility] HealthcareEvaluation note* Diagnosis RSV (respiratory syncytial virus pneumonia)- Primary Pneumonia due to respiratory syncytial virus COPD with acute exacerbation ([facility]) Benign hypertension ([facility]) Essential hypertension, benign Gastroesophageal reflux disease without esophagitis Esophageal reflux Chronic obstructive pulmonary disease, unspecified COPD type ([facility]) Benign hypertension ([facility])- Primary Essential hypertension, benign Lower extremity edema Edema Chronic obstructive pulmonary disease, unspecified COPD type ([facility]) Gastroesophageal reflux disease without esophagitis Esophageal reflux SHAN (generalized anxiety disorder) ([facility]) Generalized anxiety disorder Dyslipidemia ([facility]) Other and unspecified hyperlipidemia Encounter for long-term current use of medication Pre-diabetes Other abnormal glucose Obesity (BMI 30-39.9) Dermatitis Contact dermatitis and other eczema, due to unspecified cause Benign hypertension ([facility])- Primary Essential hypertension, benign SHAN (generalized anxiety disorder) ([facility]) Generalized anxiety disorder Chronic obstructive pulmonary disease, unspecified COPD type ([facility]) Lower extremity edema Edema Gastroesophageal reflux disease without esophagitis Esophageal reflux documented in this encounter [facility] HealthcareEvaluation note* Diagnosis RSV (respiratory syncytial virus pneumonia)- Primary Pneumonia due to respiratory syncytial virus COPD with acute exacerbation ([facility]) Benign hypertension ([facility]) Essential hypertension, benign Gastroesophageal reflux disease without esophagitis Esophageal reflux Chronic obstructive pulmonary disease, unspecified COPD type ([facility]) Benign hypertension ([facility])- Primary Essential hypertension, benign Lower extremity edema Edema Chronic obstructive pulmonary disease, unspecified COPD type ([facility]) Gastroesophageal reflux disease without esophagitis Esophageal reflux SHAN (generalized anxiety disorder) ([facility]) Generalized anxiety disorder Dyslipidemia ([facility]) Other and unspecified hyperlipidemia Encounter for long-term current use of medication Pre-diabetes Other abnormal glucose Obesity (BMI 30-39.9) Dermatitis Contact dermatitis and other eczema, due to unspecified cause Benign hypertension ([facility])- Primary Essential hypertension, benign SHAN (generalized anxiety disorder) ([facility]) Generalized anxiety disorder Chronic obstructive pulmonary disease, unspecified COPD type ([facility]) Lower extremity edema Edema Gastroesophageal reflux disease without esophagitis Esophageal reflux Medicare annual wellness visit, subsequent- Primary Benign hypertension ([facility]) Essential hypertension, benign Class 1 obesity due to excess calories with serious comorbidity and body mass index (BMI) of 32.0 to 32.9 in adult Chronic obstructive pulmonary disease, unspecified COPD type ([facility]) Dyslipidemia ([facility]) Other and unspecified hyperlipidemia Encounter for long-term current use of medication Pre-diabetes Other abnormal glucose documented in this encounter [facility] HealthcareEvaluation note* Diagnosis RSV (respiratory syncytial [...] Historyvein ablasion right legHospitalization Historycellulitis Hospitalization History [facility] Other Summary Purpose Family History No Family History Records Found Relationship Condition Age at Onset Recorded Date/T anali father Unknown Advance Directives No Advanced Directives Records Found Advance Directive Response Recorded Date/ Time Advance Directives No January 05 024 9:43am Chief Complaint and Reason for Visit Chief Complaint Poss [place] eye Reason for Visit Acute conjunctivitis , bilateral Additional Source Comments INFORMATION SOURCE (unrecogn ized section and content) DATE CREATED AUTHOR 06/23/2021 [facility] DATE CREATED AUTHOR AUTHOR'S ORGANIZ ATION 01/01/2025 [facility] EPIC REASON FOR VISIT (unrecogniz [...] Piter Cleary MD [address] [place] [address] PCP - GeneralFamily Medicine12/03/23Team MemberRelationshipSpecialtyStart DateEnd Date Piter Cleary MD [address] [place] [address] PCP - GeneralFamily Medicine12/03/23Team MemberRelationshipSpecialtyStart DateEnd Date Piter Cleary MD [address] [place] [address] PCP - GeneralFamily Medicine12/03/23Team MemberRelationshipSpecialtyStart DateEnd Date Piter Cleary MD [address] [place] [address] PCP - GeneralFamily Medicine12/03/23Team MemberRelationshipSpecialtyStart DateEnd Date Piter Cleary MD [address] [place] [address] PCP - GeneralFamily Medicine12/03/23Team MemberRelationshipSpecialtyStart DateEnd Date Piter Cleary MD [address] [place] [address] PCP - [facility]12/03/23 Piter Cleary MD [address] [place] [address] PCP - [place]06/04/24Team MemberRelationshipSpecialtyStart DateEnd Date Piter Cleary MD [address] [place] [address] PCP - [facility]12/03/23 Piter Cleary MD [address] [place] [address] PCP - [place]06/04/24Team MemberRelationshipSpecialtyStart DateEnd Date Piter Cleary MD [address] [place] [address] PCP - [facility]12/03/23 Piter Cleary MD [address] [place] [address] PCP - [place]06/04/24Team MemberRelationshipSpecialtyStart DateEnd Date Piter Cleary MD [address] [place] [address] PCP - [facility]12/03/23 Piter Cleary MD [address] [place] [address] PCP - Gregg YATES06/04/24Team MemberRelationshipSpecialtyStart DateEnd Date Piter Cleary MD [address] [place] [address] [facility] Piter Cleary MD [address] [place] [address] PCP - Gregg YATES06/04/24 Goals (unrecognized [...] BE BASED ON THE PRIMARY CLINICAL RECORDS. [facility]. provides no warranty or guarantee of the accuracy or completeness of information in this document.
--- OUTSIDE RECORDS SUMMARY | 2025-04-03 16:31 | XMS_ITS | Patient Health Record ---
Author Organization [facility] in [place] Address [address] [place] [address] Care Team Providers Care Die Welder Name Role Phone Piter Duff MD Primary Care Provider Unavailab rodriguez Cindi Mccullough Unavailable [phone] Oxana New Unavailable [phone] Allergies Allergen (clinical drug ingredient) Drug/Non Drug Allergy documented on EMR Reaction Allergy Type Onset Date Status Cat dander Cats (uncoded) Unknown Allergy ActiveMolds (uncoded)UnknownAllergyActivePerfumePerfume (uncoded)UnknownAllergy Active Results Component Value Reference Range Notes CT lung screening low-dose Reviewed date:07/08/2024 07:35:03 AM Interpretation: Performing Lab: Notes/Report: Source Facility: [place] [address] CT Scan Report Signed Patient: MIRANDA GILLILAND MR#: [id number] : 1955 Acct:[id number] Age/Sex: 68 / F ADM Date: 07/04/24 Loc: CT Attending Dr: Oxana New D.O. Ordering Physician: Oxana New D.O. Date of Service: 07/04/24 Procedure(s): CT lung screening low-dose Accession Number(s): [id number] cc: Piter Duff M.D. [place] [address] Patient Name: MIRANDA GILLILAND MRN: [facility]:[id number] date: 1955 Sex: F Assigned Patient Location: CT Current Patient Location: CT Accession/Order Number: [id number] Exam Date: 07/04/2024 08:42 Report Date: 07/04/2024 [...] M.D. Signed By: 07/04/24910 DD/ 8 TD/TT: Insurance Account Assistant: CT Chest Low Dose for Screen ing* Reviewed date:07/07/2024 08:04:55 AM Interpretation: Performing Lab: Notes/Report: Reason For Referral No Information Medications Medication SIG (Take, Route, Frequency, Duration) Notes Start Date End Date Status Joanne 180 mg 1 tablet Oral QD ActiveVitamin C 500 mg1 capsule QD ActiveVitamin DActive Ibuprofen 200 ooqzonqdg30/01/1900ActiveVitamin E 400 unit1 capsule QD ActiveLisinopril-hydroCHLOROthiazide 20-12.5 MG1 tablet Orally Once a day; Duration: 30 day(s)ActiveMagnesiumActiveMultivitamintablet Oral Active [place] 3 350-400 mg1 capsule Oral QD ActivePotassiumActivePreserVision [...] nts Arexvy Unknown 03/03/2024 Administered Flu, Fluad (21520) 65 yrs + High Dose Seasonal (4025-9796)Jsbvifz3002/15/2024 AdministeredFlu, Fluad (70612) 65 yrs+, single-dose syringe (7690-0136)Unknown 04/11/2023dministeredPneumococcal (Prevnar 20)Xkjhpkl1605/09/2024dministered Social History Tobacco Use: Social History Observation Description Date Details (start date - stop date) Current Smoker NA - NA Tobacco Control (Standard) Question Answer Notes Tobacco use: Current every day smoker Additional Findings: Tobacco userLight cigarette smoker (1-9 cigs/day) Problems Problem Type SNOMED Code ICD Code Onset Dates Problem Status W/U Status Risk Notes Problem Centrilobular emphysema (07042826) Centri lobular emphysema (J43.2) ActiveconfirmedProblemUncomplicated moderate persistent asthma (401294010) Moderate persistent asthma, uncomplicated (J45.40)ActiveconfirmedProblemLong- term current use of inhaled steroid (672850245)detention (current) use of inhaled steroids (Z79.51)ActiveconfirmedProblemAllergic rhinitis (65134083) Allergic rhinitis (J30.9)ActiveconfirmedProblemMental disorder caused by drug (750565603)Cigarette nicotine dependence with nicotine-induced disorder (F17.219)ActiveconfirmedProblemHistory of pulmonary embolus (865016266)History of pulmonary embolism (Z86.711)ActiveconfirmedProblemHistory of respiratory disease (122312227)History of lung abscess (Z87.09)ActiveconfirmedProblem Multiple pulmonary nodules (608350927)Multiple pulmonary nodules (R91.8)Active confirmedProblemUncomplicated moderate persistent asthma (147123499)Moderate persistent asthma in adult without complication (J45.40)ActiveconfirmedProblem 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)Activeconfirmed Vital Signs Heart Rate 86 /min 10/28/2024 Hfmkfjgcvay34.8 degrees Krszkvvhvi58/27/2025Respiratory Rate18 /min10/28/2024 Blood pressure aissmfsgu69 mm Hg10/28/20246101Ykmcqgqb50 %10/28/20248351Vxrtmh51 in 10/28/2024lood pressure xzrudyxm795 mm Hg10/28/20247163Filbpr080.8 lbs10/28/2024MI 32.5 kg/m210/28/2024 Procedures Procedure Date Ordered Date Performed Result Body Sit e Smoking/Tobacco Counseling 3 min up to 10-performed 10/28/2024 10/28/2024 N/A Encounters Encounter Location Date Provider Diagnosis Pulmonary Medicine [place] [address] [place] [address] 07/08/2024 [facility] Pulmonary Medicine [address] [place] [address]/07/2025 [facility] Medicine [address] [place] [address] 04/30/2024[facility] SamsaModerate persistent asthma in adult without complication J45.40 ; Centrilobular emphysema J43.2 ; Cigarette nicotine dependence with nicotine-induced disorder F17.219 ; Encounter for immunization Z23; Encounter for screening for malignant neoplasm of respiratory organs Z12.2 ; Azygos lobe Q33.1 ; History of lung abscess Z87.09 ; History of pulmonary embolism Z86.711 and detention (current) use of inhaled steroids Z79.51Pulmonary [facility] [address] [place] [address]/27/2025[facility] asthma in [facility] without complication J45.40 ; Centrilobular emphysema J43.2 ; Cigarette nicotine dependence with nicotine-induced disorder F17.219 ; Multiple pulmonary nodules R91.8 ; Encounter for screening for malignant neoplasm of respiratory organs Z12.2 ; Azygos lobe Q33.1 ; History of lung abscess Z87.09 ; History of pulmonary embolism Z86.711 and long 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 She did pay gyg-uu-pttorp the nearly $500 for 3-month supply. She [...] out a more affordable option for her. 4Centrilobular emphysema (ICD-10 - J43.2) Asthma-COPD overlap. 10/28/2024Moderate [...] on Trelegy and work at smoking cessation. Qglj-xw-kqeg encounter performed with the patient to document continued need for a nebulizer with nebulized medications. -Current nebulized medications: Albuterol -Symptom control: Improved with use -Reported side or adverse effects: Denies -Recommendations: Renew, replace, reorder nebulizer and supplies as needed. 5Centrilobular emphysema (ICD-10 - J43.2) Asthma-COPD overlap. 10/28/2024igarette nicotine dependence with nicotine-induced disorder (ICD-10 [...] compared to 06/06/2023. Next LDCT due 06/2025. 10/28/2024Encounter for screening for malignant neoplasm of [...] smoking cessation/continued tobacco abstinence. LDCT due 06/2025. 04/30/2024Encounter for screening for malignant neoplasm of respiratory organs (ICD-10 - Z12.2) LDCT scheduled for June 2024. 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 5Azygos lobe (ICD-10 - Q33.1) Incidental finding. 10/28/2024History of lung abscess (ICD-10 - Z87.09) June 2021. Attributed to MSSA and presumptive anaerobic bacteria from aspiration. She did not require thoracotomy. Completely resolved on subsequent imaging. 04/30/2024History of lung abscess (ICD-10 - Z87.09) June 2021. Attributed to MSSA and presumptive anaerobic bacteria from aspiration. She did not require thoracotomy. Follow-up chest CT in 06/05/2023 shows resolution of the right upper lobe abscess with remnant scarring. No further follow-up is required. 04/30/2024History of pulmonary embolism (ICD-10 - Z86.711)10/28/2024History of pulmonary embolism (ICD-10 - Z86.711)10/28/2024Long term (current) use of inhaled steroids (ICD-10 - Z79.51) Patient was counseled to rinse & gargle with water after inhaled corticosteroid use. 04/30/2024Long term (current) use of inhaled steroids (ICD-10 - Z79.51) Patient was counseled to rinse & gargle with water after inhaled corticosteroid use. 10/28/2024Other Plan Of Treatment No Information Insurance Providers Payer Name Payer Address Payer Phone Subscriber Number Group Number Insured Name Patient Relationship to Insured Coverage Start Date Coverage End Date [employer] MEDICARE [address] [place] [address] [id number] [facility] Miranda Gilliland Self - patient is the insured Medical (General) History Medical History History ICD Code Centrilobular emphysema J43.2 Moderate persistent asthma, uncomplicate d J45.40 Hyperlipidemia E78.5 Hypertension I10 Allergic rhinitis J30.9 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
--- OUTSIDE RECORDS SUMMARY | 2025-04-03 16:31 | XMS_ITS | Clinical Summary ---
Author Organization [facility] Address [address] [place] [address] Care Team Providers Care Carpet Layer Helper Name Role Phone Piter Duff MD Primary Care Provider Piter Duff MD Unavailable Allergies No known active allergies Medications MedicationSigDispense QuantityRefillsLast FilledStart DateEnd DateStatus albuterol HFA 90 mcg/act inhaler Inhale 2 puffs every 4 (four) hours if fdsujc083Active omeprazole OTC (PriLOSEC OTC) 20 MG EC [...] 16 g 5Active Active Problems ProblemNoted DateDiagnosed SzuiHwfizhevmfyubwl59/29/2025 Assessment & Plan (12/30/2024 2:18 PM EDT): Symptoms with position changes and possibly related to sinus symptoms. Add flonase and monitor. If persist will stop hydrochlorothiazide. Medicare annual wellness visit, lxtmsnmweh65/02/2025 Assessment & Plan (11/03/2024 12:15 PM EDT): Due for labs. Discussed proper diet and regular aerobic exercise. Need aerobic exercise 5-6 days a week for 30 minutes at a time. Smaller portions and limit total calories. Cologuard normal October 2022.Tetanus every 10 years. Advised not to smoke. Encounter for long-term current use of ubcwehtxjf42/01/2024lass 1 obesity due to excess calories with [...] stable and continue trelegy. Follow up with drafter chief design. Assessment & Plan (06/05/2024 10:04 AM EST): Breathing stable and continue trelegy. Refer to local drafter chief design. Assessment & Plan (12/03/2023 1:57 PM EDT): Breathing stable and continue breo. Refer to local drafter chief design. Assessment & Plan (06/12/2023 2:15 PM EST): Breathing stable and continue breo. Refer to local drafter chief design. Seasonal allergic rhinitis due to vpujpq1106/12/2023 Assessment & Plan (12/30/2024 2:18 PM EDT): Increased symptoms and add flonase. Benign sidyunwggsgp73/02/2024 Assessment & Plan (11/03/2024 12:14 PM EDT): [...] EDT): Edema stable and elevate legs PRN. Hvfbtuooufzx20/02/2024Gastroesophageal reflux rcxnixg5906/05/2023 Assessment & Plan (06/05/2024 10:05 AM EST): Symptoms controlled with medication and continue. Assessment & Plan (12/03/2023 1:57 PM EDT): Symptoms controlled with medication and continue. Assessment & Plan (06/12/2023 2:15 PM EST): Symptoms controlled with medication and continue. Pre-bdidvoph64/02/2024 Resolved Problems ProblemNoted DateDiagnosed DateResolved DateRSV (respiratory syncytial virus pneumonia)/06/2023 Assessment & Plan (06/12/2023 2:15 PM EST): Recent infection and improving. Monitor. COPD with acute xhacwwiwpzcs70 Assessment & Plan (06/12/2023 2:15 PM EST): Recent exacerbation but improved. Complete medication as directed. Immunizations ImmunizationAdministration DatesNext DueInfluenza, High Dose Seasonal, Preservative Free02/15/2024neumococcal Conjugate PCV 4RSV, recombinant, protein subunit RSVpreF, adjuvant reconstitu, 120mcg/0.5mL, PF (Arexvy)03/03/2024 Family History Medical HistoryRelationNameCommentsHeart diseaseFatherHypertensionFatherOther FatherCerebrovascular DiseaseCancerMotherColon cancerRelationNameStatusComments FatherDeceasedMother Social History Tobacco UseTypesPacks/DayYears UsedDateSmoking Tobacco: FormerCigarettes0.530 Tobacco Cessation:Counseling Given: Not Answered PHQ-2AnswerDate RecordedPatient Health Questionnaire-2 Sgjvt002 CommentsUnknownSex and Gender InformationValueDate RecordedSex Assigned at Not on fileLegal EufAoxrxn65/11/2023 8:07 AM ESTGender IdentityNot on fileSexual OrientationNot on file Last Filed Vital Signs Vital SignReadingTime TakenCommentsBlood Cjsvpxbm685/8412/30/2024 1:44 PM EDT Ubdbt737312/30/2024 1:44 PM WRWZamznfwmuih99.3 ??C (97.3 ??F)12/30/2024 1:44 PM EDTRespiratory Xrnp410512/30/2024 1:44 PM EDTOxygen Lvkgkkgtci11%12/30/2024 1:44 PM EDTInhaled Oxygen Concentration--Ghaexx23.3 kg (208 lb)12/30/2024 1:44 PM EDT Ntguxg015.7 cm (5' 8 )12/30/2024 1:44 PM EDTBody Mass Index31.63012/30/2024 1:44 PM EDT Plan of Treatment Health MaintenanceDue DateLast DoneCommentsCT Kzxyqxjpwdax20/01/1958Colonoscopy 1955FIT1955FOBT1955 3445Wzqffykmjytja15/01/1956Influenza Vaccine (#1)/2024, 04/11/2023, 03/24/2021olorectal Cancer Screening 10/23/2025FIT-DNA6010/23/2022Medicare Annual Wellness (AWV)11/03/2025 11/03/2024, 10/31/2023, 10/10/2022neumococcal Vaccine: 65+ YearsCompleted 05/09/2024MammogramDiscontinued Insurance Care Teams Team MemberRelationshipSpecialtyStart DateEnd Date Piter Duff MD [facility] - [facility] Piter Duff MD [address] [facility] [place] [address] PCP - Gregg YATES06/04/24
--- OUTSIDE RECORDS SUMMARY | 2025-04-03 16:31 | XMS_ITS | Clinical Summary ---
Author Organization [facility] Address [address] [place] [address], [address] [place] [address] Care Team Providers Care Pain Medicine Physician Name Role Phone Unavailable Primary Care Provider Unavailabl e Social History Tobacco UseTypesPacks/DayYears UsedDateSmoking Tobacco: Never Assessed CommentsUnknownSex and Gender InformationValueDate RecordedSex Assigned at Not on fileLegal CjpJzkpix43/12/2013 8:37 PM ESTGender IdentityNot on fileSexual OrientationNot on file Plan of Treatment Not on file
--- OUTSIDE RECORDS SUMMARY | 2025-04-03 16:31 | XMS_ITS | Clinical Summary ---
Author Organization [facility] Address [id number] [place] [address] Care Team Providers Care Manager Administration Name Role Phone Piter Duff MD Primary Care Provider [phone] Allergies Active AllergyReactionsCriticalityNoted DateCommentsCat DanderEye Swelling 06/15/2021 [...] of upper lobe of right lung without lbrtnfizc01/04/2022OVID-19008/05/2021cute respiratory failure with hypoxia 2Cavitary lesion of lung06/15/2021 Overview (06/15/2021): Added automatically from request for surgery [id number] Resolved Problems ProblemNoted DateDiagnosed DateResolved DateAdjustment disorder with anxiety Immunizations ImmunizationAdministration DatesNext DueInfluenza, Im Trivalent Preservative 03/24/2021 Family History Medical HistoryRelationNameCommentsBipolar disorderMotherRelationNameStatus CommentsMother Social History Tobacco UseTypesPacks/DayYears UsedDateSmoking Tobacco: Every DayCigarettes Smokeless Tobacco: FormerAlcohol UseStandard Drinks/WeekCommentsYes0 (1 standard drink = 0.6 oz pure alcohol)rareChildcareAnswerDate RecordedChildcareUnknown 11/01/2018EmploymentAnswerDate IwdxjawyXfjfczaemvStrnynq32/31/2019Purpose - Life AnswerDate RecordedPurpose and direction in vqhmAblzzvg03/11/2021 CommentsNoSex and Gender InformationValueDate RecordedSex Assigned at BirthNot on fileLegal XlgWvthqf40/06/2015 11:59 AM EDTGender IdentityNot on fileSexual OrientationNot on file Last Filed Vital Signs Vital SignReadingTime TakenCommentsBlood Iohbnlap575/7203 9:51 AM EST Hcmxy9234 9:51 AM WEIWqspupznptw00 ??C (96.8 ??F)08/04/2021 9:51 AM EST Respiratory Eics161807/14/2021 9:00 AM ESTOxygen Wxoidsbjfd46%08/04/2021 9:51 AM ESTInhaled Oxygen Concentration--Ytcgoj31.8 kg (220 lb)07/14/2021 9:00 AM EST Wvxpfo832.7 cm (5' 8 )07/14/2021 9:00 AM ESTBody Mass Index33.45007/14/2021 9:00 AM EST Plan of Treatment Health MaintenanceDue DateLast DoneCommentsDepression Kpxzmkxvv37/01/1970Tobacco Rwdzvqnbp36/01/1970Adult BMI Sldlhkagq46/01/1976DTaP,Tdap and Td Vaccines (1 - Tdap)1976Zoster (Shingles) Vaccine (1 of 2)10/03/2007Fall Risk Screening 2022Influenza Jckzkez20/ Medical Devices Not on file Insurance Advance Directives * Full Code (Latest Code Status on File) Date ActivatedDate InactivatedComments06/15/2021 2:23 AM06/18/2021 8:05 PM Care Teams Team MemberRelationshipSpecialtyStart DateEnd Date Piter Duff MD PCP - GeneralFamily Medicine07/11/18
[2025-04-03 16:32] LABS: INR 0.94; Prothrombin Time 10.0 sec (9.0-11.6)
[2025-04-03 16:33] LABS: Alanine Aminotransferase 26 U/L (14-59); Albumin Globulin Ratio 1.2; Albumin Level 4.0 g/dL (3.4-5.0); Alkaline Phosphatase 95 U/L (46-116); Anion Gap 14.3; Aspartate Amino Transferase 20 U/L (15-37); Blood Urea Nitrogen 13.0 mg/dL (7.0-18.0); Calcium 10.0 mg/dL (8.5-10.1); Carbon Dioxide 29.8 mmol/L (21.0-32.0); Chloride 101 mmol/L (98-107); Estimated GFR (African America >60 (>=60 mL/min/1.73m^2); Estimated GFR (Non-African Ame >60 (>=60 mL/min/1.73m^2); Globulin 3.4 g/dL; Glucose 101 mg/dL (74-106); Potassium 4.1 mmol/L (3.5-5.1); Sodium 141 mmol/L (136-145); Total Protein 7.4 g/dL (6.4-8.2)
[2025-04-03] MEDS: METHYLPREDNISOLONE SOD SUCC PF 125 MG/2 ML VIAL IVP (16:37)
[2025-04-03] MEDS: MAGNESIUM SULFATE IN WATER 2 GM/50 ML PREMIX IV (17:13)
--- NOTE | 2025-04-03 17:22 | ED.SOB1 ---
HPI - SOB/Dyspnea General Chief Complaint: Shortness of Breath/Dyspnea Stated Complaint: SOB Time Seen by Provider: 04/03/25 16:03 Source: patient Mode of arrival: walk-in Limitations: no limitations History of Present Illness HPI Narrative: pt is a 69 years old female with history of COPD is coming to the ER after she was already evaluated yesterday for shortness of breath, have a history of COPD, the patient is not oxygen dependent but upon arrival she was found to be tachypneic her pulse ox was 89% and she was in one-word sentences Patient has been coughing only clear phlegm No chest pain no nausea no vomiting no other concerns. The patient also have a history of sinus congestion and drainage Patient have history of asthma and COPD and she was working outside on Sunday which was almost 5 days ago and the cold cleaning the gutter when this all symptoms started a day later Related Data Home Medications ?Medication ?Instructions ?Recorded ?Confirmed albuterol sulfate 90 mcg/actuation 2 inh inhalation Q4H PRN 06/05/23 04/03/25 aerosol inhaler bronchospasm lisinopril 10 1 tab PO DAILY 06/05/23 04/03/25 mg-hydrochlorothiazide 12.5 mg tablet fluticasone fur. 200 mcg-umeclid 1 inh inhalation DAILY 04/02/25 04/03/25 62.5 mcg-vilant 25 mcg inhalat.powder (Trelegy Ellipta) albuterol sulfate 2.5 mg/3 mL mg 04/03/25 (0.083 %) solution for nebulization cholecalciferol (vitamin D3) 50 50 mcg PO DAILY 04/03/25 04/03/25 mcg (2,000 unit) capsule ibuprofen 200 mg tablet (Addaprin) 200 mg PO TID-QID PRN pain 04/03/25 04/03/25 magnesium 250 mg tablet 250 mg PO DAILY 04/03/25 04/03/25 gmpzxxps-boyb-wymw 8 mg-folic 400 1 tab PO DAILY 04/03/25 04/03/25 mcg-K 50 mcg-lutein 300 mcg tablet ([facility] [employer] [facility]) potassium 99 mg tablet mg 04/03/25 Previous Rx's ?Medication ?Instructions ?Recorded azithromycin 250 mg tablet See Rx Instructions PO .COMPLEX #6 04/02/25 (Zithromax Z-[place]) tabs prednisone 10 mg tablet See Rx Instructions .Route 04/02/25 .COMPLEX #30 tabs Allergies Allergy/AdvReac Type Severity Reaction Status Date / Time No Known Drug Allergies Allergy Verified 04/03/25 15:51 Review of Systems ROS Status of ROS 10 or more systems reviewed and unremarkable except as noted in history and below [facility] Medical History (Updated 04/03/25 @ 18:20 by Cynthia Dobbs MD) COPD exacerbation ?J44.1 - Chronic obstructive pulmonary disease with (acute) exacerbation (ICD-10) Personal history of pulmonary embolism ?Z86.711 - Personal history of pulmonary embolism (ICD-10) Hypertension ?I10 - Essential (primary) hypertension (ICD-10) Prediabetes ?R73.03 - Prediabetes (ICD-10) COPD (chronic obstructive pulmonary disease) ?J44.9 - Chronic obstructive pulmonary disease, unspecified (ICD-10) Asthma with acute exacerbation ?J45.901 - Unspecified asthma with (acute) exacerbation (ICD-10) 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, unspecified ear (ICD-10) Pulmonary embolism ?I26.99 - Other pulmonary embolism without acute cor pulmonale (ICD-10) Surgical History H/O tubal ligation ?Z98.51 - Tubal ligation status (ICD-10) History of tonsillectomy ?Z90.89 - Acquired absence of other organs (ICD-10) Family History (Updated 06/05/23 @ 21:13 by Ludy Graham RN) Mother Family history of cancer Father Family history of CHF (congestive heart failure) Family history of hypertension Family history of myocardial infarction Social History (Updated 06/05/23 @ 21:17 by Ludy Graham RN) Within the past year, how often did you have a drink containing alcohol: monthly or less Within the past year, how many standard drinks containing alcohol did you have on a typical day: 1 or 2 Within the past year, how often did you have six or more drinks on one occasion: never Total score: 0 Score interpretation: A score less than 3 is consistent with normal alcohol consumption. 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 Known occupational exposures/hazards: Yes Known occupational exposures/hazards details: silica , dust particles Highest level of school completed/degree received: high school graduate Are you now , , , , never or living with a partner: In a typical week, how many times do you talk on the telephone with family, friends, or neighbors: 3 or more times per week How often do you get together with friends or relatives: once per week How often do you attend jainism or moravian services: never Do you belong to any clubs or organizations such as jainism groups unions, [employer] or athletic groups, or school groups: no Total score: 1 Score interpretation: A score of less than or equal to 1 indicates the most socially isolated. Little interest or pleasure in doing things: several days Feeling down, depressed, or hopeless: several days Feel stressed/tense/nervous/anxious/difficulty sleeping: to some extent Life stressors: recent of family or friend Life stressor details: son Do you think of yourself as: straight/heterosexual Gender Identity: female Exam Narrative Exam Narrative: Nurses notes and vital signs reviewed and patient is not hypoxic. General: Well-appearing and in no apparent distress. Skin: Warm, dry, no pallor noted. No rash. Head: Normocephalic, atraumatic. Neck: Supple, non-tender. Eye: Pupils are equal, round and EOMI. No scleral icterus. Cardiovascular: Regular Rate and Rhythm without murmur, gallop or rub. Respiratory: Use accessory muscles leaning forward and speaking in one-word sentences the patient is tachypneic, bilateral expiratory lung wheezes in both lung brooks Back: No midline thoracic or lumbar vertebral tenderness. No CVA tenderness Musculoskeletal: normal ROM, no calf or popliteal tenderness, no lower extremity edema/swelling GI: Abdomen is soft, non-distended. Normal bowel sounds. No masses appreciated. No tenderness to palpation. No rebound, guarding, or rigidity noted. Neurological: A&O x4. No cranial nerve dysfunction observed. Constitutional Vital Signs, click to edit/add: Last Vital Signs Temp 98.4 F 04/03/25 15:51 Pulse 92 H 04/03/25 17:30 Resp 19 04/03/25 17:30 BP 158/101 H 04/03/25 17:21 Pulse Ox 96 04/03/25 17:30 O2 Del Method Nasal Cannula 04/03/25 16:27 O2 Flow Rate 2 04/03/25 17:21 Course Vital Signs Vital signs: Vital Signs Temperature 98.4 F 04/03/25 15:51 Pulse Rate 120 H 04/03/25 15:51 Respiratory Rate 28 H 04/03/25 15:51 Blood Pressure 165/95 H 04/03/25 15:51 Pulse Oximetry 89 L 04/03/25 15:51 Oxygen Delivery Method Room Air 04/03/25 15:51 Temperature 98.4 F 04/03/25 15:51 Pulse Rate 92 H 04/03/25 17:30 Respiratory Rate 19 04/03/25 17:30 Blood Pressure 158/101 H 04/03/25 17:21 Pulse Oximetry 96 04/03/25 17:30 Oxygen Delivery Method Nasal Cannula 04/03/25 16:27 Oxygen Delivery Flow Rate 2 04/03/25 17:21 MDM - SOB/Dyspnea MDM Narrative Medical decision making narrative: Patient EKG in the ER upon arrival is showing sinus rhythm with a heart rate of [address] elevation and no depression X-ray showed no acute pathology Patient presenting to us with a failure of outpatient treatment her COPD exacerbation got worse She was provided with 2 breathing treatment as well as Solu-Medrol and magnesium IV after which she was feeling better but she still having wheezing bilaterally Right now she is speaking in full sentences and she was requesting to eat but she still need to be admitted for further evaluation of her COPD The patient CBC and chemistry as well as troponin and BNP are negative Patient case was discussed with and he agreed on admitting the patient Lab Data Labs: Lab Results 04/03/25 04/03/25 Range/Units 16:13 16:15 WBC 8.5 (4.0-11.0) 10^3/uL RBC 4.52 (4.20-5.40) 10^6/uL Hgb 15.3 (12.0-16.0) g/dL Hct 43.9 (36.0-48.0) % MCV 97.1 (81.0-99.0) fL MCH 33.8 (26.7-34.0) pg MCHC 34.9 (29.9-35.2) g/dL RDW 12.1 (11.0-15.0) % Plt Count 186 (150-450) 10^3/uL MPV 9.1 L (9.5-13.5) fL Neut % (Auto) 85.4 H (43.0-75.0) % Lymph % (Auto) 10.7 L (20.5-60.0) % Sampson % (Auto) 3.4 (1.7-12.0) % Eos % (Auto) 0.0 L (0.9-7.0) % Baso % (Auto) 0.1 L (0.2-2.0) % Neut # (Auto) 7.2 H (1.4-6.5) 10^3/uL Lymph # (Auto) 0.9 L (1.2-3.8) 10^3/uL Sampson # (Auto) 0.3 (0.3-0.8) 10^3/uL Eos # (Auto) 0.0 (0.0-0.7) 10^3/uL Baso # (Auto) 0.0 (0.0-0.1) 10^3/uL Abs Immat Gran (auto) 0.03 (0.00-0.03) 10^3/uL Imm/Tot Granulo (auto) 0.4 (0.0-0.5) % PT 10.0 (9.0-11.6) sec INR 0.94 Puncture Site Rr ABG pH 7.426 (7.350-7.450) ABG pCO2 39.7 (35.0-45.0) mmHg ABG pO2 95.5 (80.0-100.0) mmHg ABG HCO3 26.0 (22.0-26.0) mmol/L ABG O2 Saturation 98.2 % ABG Base Excess 1.7 (-2.0-2.0) mmol/L Guillermo Test Positive (POSITIVE) O2 Liters/Min 2l Sodium 141 (136-145) mmol/L Potassium 4.1 (3.5-5.1) mmol/L Chloride 101 (98-107) mmol/L Carbon Dioxide 29.8 (21.0-32.0) mmol/L Anion Gap 14.3 BUN 13.0 (7.0-18.0) mg/dL Creatinine 0.68 (0.55-1.02) mg/dL Est GFR ( Amer) >60 (>=60 mL/min/1.73m^2) Est GFR (Non-Af Amer) >60 (>=60 mL/min/1.73m^2) BUN/Creatinine Ratio 19.1 Glucose 101 (74-106) mg/dL Calcium 10.0 (8.5-10.1) mg/dL Total Bilirubin 0.4 (0.2-1.0) mg/dL AST 20 (15-37) U/L ALT 26 (14-59) U/L Alkaline Phosphatase 95 (46-116) U/L Troponin I High Sens 7.3 (4.0-51.3) pg/mL NT-Pro-B Natriuret Pep 200.0 (<=900.0) pg/mL Total Protein 7.4 (6.4-8.2) g/dL Albumin 4.0 (3.4-5.0) g/dL Globulin 3.4 g/dL Albumin/Globulin Ratio 1.2 Discharge Plan Discharge Chief Complaint: Shortness of Breath/Dyspnea Clinical Impression: COPD exacerbation, Hypoxemia Patient Disposition: Admitted As Inpatient Time of Disposition Decision: 18:20
[2025-04-03 17:52] LABS: NT Pro B Type Natriuretic Pept 200.0 pg/mL (<=900.0)
--- OUTSIDE RECORDS SUMMARY | 2025-04-03 20:40 | XMS_ITS | CCD ---
Author Organization [facility] Care Team Providers Care Qa Architect Name Role Phone TORRES, DR REAGAN Vance [...] Unavailable Piter Cleary MD Primary Care Provider [phone] Piter Cleary MD Unavailable PITER CLEARY Attending Unavailable PITER CLEARY Attending Unavailable MAGUI MURDOCK Attending Unavailable MAGUI MURDOCK Attending Unavailable MAGUI MURDOCK Attending Unavailable PITER CLEARY Attending Unavailable Medications Current Medications MedicationDrug Class(es)DatesSig (Normalized)Sig (Original)[id number] 200 actuat albuterol 0.09 mg/actuat metered dose inhaler (16 sources)beta2-Adrenergic AgonistStart: 28-95-2055Ppjlmjmin Sulfate Active 1 PUFF INHALATION every 6 to 8 hours January 06, 2024 12:00amStart: 29-07-3917qlrd 2 puff(s) by inhalation every four hoursalbuterol HFA 90 mcg/act inhaler Inhale 2 puffs every 4 (four) hours if needed 06/03/2023 ActiveStart: 59-69-5953lhhq 2 puff(s) by inhalation every four to six hours as neededAlbuterol Sulfate HFA 108 (90 Base) MCG/ACT 2 puffs as needed Inhalation every 4-6 hours for 14 days May, Activetake 2 puff(s) by inhalation every four hours as neededVentolin HFA 108 (90 Base) MCG/ACT 2 puffs as needed Inhalation every 4 hrs Ljwuvz99 hr buPROPion hydrochloride 150 mg extended release oral tablet (6 sources)Aminoketone End: 14-51-4126outm 1 tablet by mouth once dailybuPROPion XL (Wellbutrin XL) 150 MG 24 hr tablet Take 150 mg by mouth Daily 11/03/2024 Discontinued cholecalciferol 0.05 mg oral capsule (1 source)Vitamin DStart: 11-49-3520vpwh 50 ug by mouth once daily Cholecalciferol (Vitamin D3) Active 50 MCG PO Daily January 06, 2024 12:00am dextromethorphan hydrobromide 1.5 mg/ml / pyrilamine maleate 1.5 mg/ml oral solution (1 source)Uncompetitive O-yfgldw-M-aspartate Receptor Antagonist, Sigma-1 AgonistStart: 33-15-1342mvni 10 mL by mouth every eight hoursCapron DM 7.5-7.5 MG/5ML 10 mL Orally every 8 hours for 5 days May, Activefluticasone propionate 0.05 mg/actuat metered dose nasal spray (2 sources)CorticosteroidStart: 81-83-0246reks 2 spray(s) nasal route once daily fluticasone (Flonase) 50 MCG/ACT nasal spray Indications: Seasonal allergic rhinitis due to pollen Administer 2 sprays into each nostril Daily Shake gently. Before first use, prime pump. After use, clean tip and replace cap. 16 g 2 12/30/2024 ActiveFluticasone Furoate-Vilanterol (6 sources)Corticosteroid, beta2-Adrenergic AgonistStart: 29-93-9429Jvmdtdnvmyv Furoate-Vilanterol (Breo Ellipta) 200-25 mcg/dose blister with device Active 1 INH INHALATION Daily January 06, 2024 12:00amStart: 03-05-2023 End: 25-69-0636fffg 1 puff(s) by inhalation in the morningBreo Ellipta 200-25 MCG/ACT aerosol powder Inhale 1 puff in the morning and 1 puff before bedtime. 1 06/05/2024 Zxqdnwmkzgbw39 actuat formoterol fumarate 0.005 mg/actuat / mometasone furoate 0.2 mg/actuat metered dose inhaler (1 source)Corticosteroid, beta2-Adrenergic Agonisttake 2 puff(s) by inhalation twice dailyDulera 200-5 MCG/ACT 2 puffs Inhalation Twice a day Active hydroCHLOROthiazide 12.5 mg / lisinopril 10 mg oral tablet (16 sources)Thiazide Diuretic, Angiotensin Converting Enzyme InhibitorStart: 58-59-3528kpdc 1 tablet by mouth once dailyLisinopril-Hydrochlorothiazide Active 1 TAB PO Daily January 06, 2024 12:00amStart: 10-16-2023 End: 52-20-7452pudy 1 tablet by mouth once dailylisinopril-hydroCHLOROthiazide 10-12.5 MG tablet Indications: Benign hypertension Take 1 tablet by mouth Daily 90 tablet 3 11/03/2024 Activeibuprofen 200 mg oral tablet (1 source)Nonsteroidal Anti-inflammatory DrugStart: 27-04-0824iios 200 mg by mouth every six hoursIbuprofen Active 200 MG PO Every 6 hours January 06, 2024 12:00amlisinopril 20 mg oral tablet (1 source)Angiotensin Converting Enzyme Inhibitortake 1 tablet by mouth every twenty-four hoursLisinopril 20 MG 1 tablet Orally Once a day Activemagnesium oxide 250 mg oral tablet (1 source)Start: 61-52-2608cuaf 250 mg by mouth once dailyMagnesium Oxide Active 250 MG PO Daily January 06, 2024 12:00ammethylPREDNISolone 4 mg oral tablet (1 source)CorticosteroidStart: 16-46-7819nfkzueSFWMVCGxfueo 4 MG as directed Orally for May, ActiveMultivitamin (Daily Multi-Vitamin) tablet (1 source)Start: 73-27-1799aopg 1 tablet by mouth once dailyMultivitamin (Daily Multi-Vitamin) tablet Active 1 TAB PO Daily January 06, 2024 12:00amomeprazole 20 mg delayed release oral tablet (13 sources)Proton Pump Inhibitortake 1 tablet by mouth before mealtime omeprazole OTC (PriLOSEC OTC) 20 MG EC tablet Take 20 mg by mouth in the morning. Take before meals. Do not crush, chew, or split.. Activepolymyxin b 31215 unt/ml / trimethoprim 1 mg/ml ophthalmic solution (1 source)Dihydrofolate Reductase Inhibitor Antibacterial, Polymyxin-class AntibacterialStart: 11-61-9327Jrimcqvaa B Sulf-Trimethoprim Active 1 DROPS OPHTHALMIC Every three hours 10 January 06, 2024 12:00am Apply 1 drop in each eye every 3 hours while awake, do not exceed 6 doses in a 24 hr periodpotassium citrate 99 mg oral tablet (1 source)Start: 69-86-1636jwta 99 mg by mouth twice dailyPotassium Citrate Active 99 MG PO Twice daily January 06, 2024 12:00amTrelegy Ellipta 200-62.5-25 MCG/ACT aerosol powder (10 sources)Start: 28-27-1834Wetylac Ellipta 200-62.5-25 MCG/ACT aerosol powder 1 puff 1 (one) time each day at the same time 01/29/2024 Activetriamcinolone acetonide 5 mg/ml topical cream (14 sources)CorticosteroidStart: 63-00-0203ictmwmexpqnen (Kenalog) 0.5 % cream Indications: Dermatitis Apply topically 3 (three) times a day 30 g 1 12/03/2023 ActiveVitamin B Complex (1 source)Start: 39-85-3070shcr 1 tablet by mouth once dailyVitamin B Complex Active 1 TAB PO Daily January 06, 2024 12:00amVitamins A,C,Y-Dins-Lumncx (Preservision Areds) 4,296 mcg-226 mg-90 mg capsule (1 source)Start: 01-23-6125hqql 1 capsule by mouth onceVitamins A,C,S-Riht-Dgahdg (Preservision Areds) 4,296 mcg-226 mg-90 mg capsule Active 1 CAP PO OnceAugust 2023 12:00am Completed/Discontinued Medications MedicationDrug Class(es)DatesSig (Normalized)Sig (Original)Dexamethasone (1 source)CorticosteroidStart: 09-18-9961JBTMUNRXERZWM May, 1.5 mg nitrofurantoin, macrocrystals 25 mg / nitrofurantoin, monohydrate 75 mg oral capsule (1 source)Nitrofuran AntibacterialStart: 73-07-4479eooz 1 capsule by mouth every twelve hoursMacrobid 100 MG 1 capsule with food Orally every 12 hrs for 7 day(s) May, Not-Taking/PRNphenazopyridine hydrochloride 200 mg oral tablet (1 source)Start: 48-62-9466bbis 1 tablet by mouth every eight hoursPyridium 200 MG 1 tablet after meals Orally Three times a day for 2 day(s) May, Not-Taking/PRN Problems Active Problems Problem ClassificationProblemDateDocumented DateEpisodic/ChronicAnxiety disorders (16 sources)Generalized anxiety disorder; Translations: [Generalized anxiety disorder]Onset: 969678-75-6809ScofzgoYukmiv (3 sources)Mild intermittent asthma, uncomplicated; Translations: [Mild intermittent asthma]Onset: 57-36-9825HxkmwkhMytigej obstructive pulmonary disease and bronchiectasis (20 sources)Centrilobular emphysema; Translations: [Chronic obstructive lung disease]Onset: 06-22-2021 Resolved: 289515-74-8718RxfpxxzPhmflejpgb associated with dizziness or vertigo (4 sources)Lightheadedness; Translations: [Dizziness and giddiness]Onset: 398674-04-9109UtjwechqVmyfvtuhr of lipid metabolism (15 sources)Dyslipidemia; Translations: [Hyperlipidemia, unspecified]Onset: 057181-28-2154NrpawosA Codes: Adverse effects of medical drugs (1 source)Adverse effect of glucocorticoids and synthetic analogues, initial encounter; Translations: [ADVRS EFF GLUCOCORT SYN ANALOG INIT]Onset: 06-22-2021 EpisodicEsophageal disorders (16 sources)Gastro-esophageal reflux disease without esophagitis; Translations: [Gastroesophageal reflux disease]Onset: 200263-60-5957ZhzlgebUzmxxzwtn hypertension (17 sources)Benign hypertension; Translations: [Essential (primary) hypertension]Onset: 071671-20-0483ZxcakrcRfbdhorhrlwm; infection of eye (except that caused by tuberculosis or sexually transmitteddisease) (2 sources)Acute conjunctivitis; Translations: [Unspecified acute conjunctivitis, bilateral]07-84-3708DkubekxcNupkvpz (1 source)Candidal stomatitis; Translations: [CANDIDAL STOMATITIS]Onset: 42-52-2318RqvvvxxdWcqst congenital anomalies (1 source)Accessory lobe of lung; Translations: [ACCESSORY LOBE OF LUNG]Onset: 95-97-3127WcgonbqVjxya gastrointestinal disorders (4 sources)Other specified symptoms and signs involving the digestive system and abdomen; Translations: [OTH SPEC SX SIGNS DIGESTV SYS ABD]Onset: 05-16-2021 EpisodicOther nutritional; endocrine; and metabolic disorders (7 sources)Body mass index 30+ - obesity; Translations: [Obesity, unspecified] Onset: 385038-87-9480ObsvpngXtpav nutritional; endocrine; and metabolic disorders (8 sources)Obesity caused by energy imbalance; Translations: [Class 1 obesity due to excess calories with serious comorbidity and body mass index (BMI) of 32.0 to 32.9 in adult]Onset: 896045-73-6143XfpakloTybkb upper respiratory disease (15 sources)Allergic rhinitis due to pollen; Translations: [Allergic rhinitis due to pollen]Onset: 696960-75-4575UxmvcrgOtgtrjtj; pneumothorax; pulmonary collapse (1 source)Pyothorax without fistula; Translations: [PYOTHORAX WITHOUT FISTULA] Onset: 47-84-2608ZyojrvkbMcriltjxptr failure; insufficiency; arrest (adult) (1 source)Acute respiratory failure with hypoxia; Translations: [ACUTE RESPIRATORY FAIL W/HYPOXIA]Onset: 46-46-2622BmieravzAoqffoqxdd (except in labor) (2 sources)Sepsis due to Methicillin susceptible Staphylococcus aureus; Translations: [Severe sepsis without septic shock]Onset: 09-11-6718Cnfjodev Substance-related disorders (1 source)Nicotine dependence, cigarettes, uncomplicated; Translations: [NICOTINE DEPEND CIGARETTES UNCOMP]Onset: 81-20-9951PetpooaFtazjnatzjsg (1 source)CONTACT W/AND (SUSP) EXPOS COVID-19; Translations: [CONTACT W/AND (SUSP) EXPOS COVID-19]Onset: 06-22-2021 Past or Other Problems Problem ClassificationProblemDateDocumented DateEpisodic/ChronicDiabetes mellitus without complication (15 sources)Prediabetes; Translations: [Prediabetes]Onset: 472654-31-7947 EpisodicMood disorders (6 sources)Mood disordersOnset: 710821-08-5719Expjk aftercare (2 sources)Patient encounter status; Translations: [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]Onset: 143191-35-4231FagtlhacIhdwd aftercare (13 sources)Long-term current use of drug therapy; Translations: [Other [place] [facility] (current) drug therapy]Onset: 380351-13-6920VvgbecsqWngdaalcw (except that caused by tuberculosis or sexually transmitted disease) (16 sources)Pneumonia, unspecified organism; Translations: [Pneumonia due to respiratory syncytial virus]Onset: 06-07-2021 Resolved: 38-76-4566VjtobctmSohfkrbn codes; unclassified (15 sources)Edema of lower extremity; Translations: [Localized edema]Onset: 777354-97-0666FegtmjxlTgoltwismslp (1 source)Acute cough R05.1 Results Test NameValueInterpretationReference RangeFacilityALL CBC WITH AUTO DIFFon 41-19-1872FSZYJOUQM ABSOLUTE EESU8HHJT HealthcareBasophils/100 WBC (Bld)0.6 %0.2 - 2.0 %NOMS HealthcareEosinophils/100 WBC (Bld)1.3 %0.9 - 7.0 %[facility] Erythrocyte distribution width (RBC) [Ratio]12.6 %11.0 - 15.0 %[facility] Hematocrit (Bld) [Volume fraction]40.4 %36.0 - 48.0 %NOMHawthorn Children'S Psychiatric HospitalHemoglobin (Bld) [Mass/Vol]14.2 g/dL12.0 - 16.0 g/dLNOHCA Midwest DivisionIMMATURE GRANULOCYTES ABS AUTO0.01NOMS HealthcareImmature granulocytes/100 WBC (Bld)0.2 %0.0 - 0.5 % [facility]SullivanInterpretation and review of laboratory resultsAbnormalNOIL HealthcareLYMPHOCYTES ABSOLUTE AUTO1.3NOMS HealthcareLymphocytes/100 WBC (Bld) 27.2 %20.5 - 60.0 %[facility]ullivanMCH (RBC) [Entitic mass]34.5 teYfil19.7 - 34.0 pgNOHCA Midwest DivisionMCHC (RBC) [Mass/Vol]35.1 g/dL29.9 - 35.2 g/dLNOMS Healthcare MCV (RBC) [Entitic vol]98.1 fL81.0 - 99.0 fLNOMS HealthcareMONOCYTES ABSOLUTE AUTO0.3NOMS HealthcareMonocytes/100 WBC (Bld)5.9 %1.7 - 12.0 %[facility] NEUTROPHILS ABSOLUTE AUTO3.1NOMS HealthcareNeutrophils/100 WBC (Bld)64.8 %43.0 - 75.0 %[facility] HealthcarePlatelet mean volume (Bld) [Entitic vol]9.1 fLLow9.5 - 13.5 fLNOMS HealthcareTBH EO #0.1NOMS HealthcareTBH [id number] HealthcareTBH RBC4.12 LowNOMS HealthcareTBH WBC4.8NOMS HealthcareCLINISYNCNST. AN[facility] HealthcareCT LUNG SCREENING LOW DOSEon 20-59-[place] [address] CT Scan Report Signed Patient: MIRANDA GILLILAND MR#: [id number] : 1955 Acct:[id number] Age/Sex: 68 / F ADM Date: 07/04/24 Loc: CT Attending Dr: Oxana New D.O. Ordering Physician: Oxana New D.O. Date of Service: 07/04/24 Procedure(s): CT lung screening low-dose Accession Number(s): [id number] cc: Piter Cleary M.D. [place] [address] Patient Name: MIRANDA GILLILAND MRN: [facility]:[id number] date: 1955 Sex: F Assigned Patient Location: CT Current Patient Location: CT Accession/Order Number: [id number] Exam Date: 07/04/2024 08:42 Report Date: 07/04/2024 [...] M.D. Signed By: 07/04/24910 DD/ 8 TD/TT: Rn Surgery Icu:TBHRadiology, Radiologist, - 07/04/[address] [place] [address] CT Scan Report Signed Patient: MIRANDA GILLILAND MR#: [id number] : 1955 Acct:[id number] Age/Sex: 68 / F ADM Date: 07/04/24 Loc: CT Attending Dr: Oxana New D.O. Ordering Physician: Oxana New D.O. Date of Service: 07/04/24 Procedure(s): CT lung screening low-dose Accession Number(s): [id number] cc: Piter Cleary M.D. [address] [address] Patient Name: MIRANDA GILLILAND MRN: [id number] date: 1955 Sex: F Assigned Patient Location: CT Current Patient Location: CT Accession/Order Number: [id number] Exam Date: 07/04/2024 08:42 Report Date: 07/04/2024 [...] M.D. Signed By: 07/04/24910 DD/ 8 TD/TT: Rn Surgery Icu: [facility] HealthcareRadiology Study observation (narrative)[facility] HealthcareCT LUNG SCREENING LOW DOSEOrdered By: Radiologist Radiology on 46-38-1009CS[employer] Work Phone: cOVID + FLU Quick Testingon 75-95-4946MBNY-CoV-2 (COVID-19) RNA MASON+probe Ql (Unsp spec)NegativeNort [employer] [place] Other COVID + FLU Quick TestingNegativeNotwo [facility] [employer] [place] [employer] Other 074-7871OIQKM-8-ANTITRYPSIN PHENOTYPINGon 06-14-2021 Ovgcb-5-Npgwllykese, Dpksx283 mg/dLCritically gwee534-013[facility] Comment on above:Result Comment: Performed at: CBPerformed By: #### CVDTBH #### [facility] [address] [place] [address] Dr. Jessica GonzalezPhenotype (PI)MMMercy Health Defiance HospitalComment on above: Result Comment: Phenotype Population A-1-AT [...] Performed at: BNPerformed By: #### CVDTBH #### [facility] [address] [place] [address] Dr. Jessica Dowling W MANUAL DIFFon 88-40-4649SXMCMHLS LYMPH #NormalGenesis HospitalComment on above:Performed By: #### CBCMAN #### [facility] [address] [place] [address] Dr. Jessica GonzalezATYPICAL LYMPH %NormalGenesis HospitalComment on above: Performed By: #### CBCMAN #### [facility] [address] [place] [address] Dr. Jessica Zaidi #1.2 103/ulCritically high0.0-0.3TGenesis Hospital Comment on above:Performed By: #### CBCMAN #### [facility] [address] [place] [address] Dr. Jessica Zaidi %6 %Critically high0-5The [facility] DublinComment on above: Performed By: #### CBCMAN #### [facility] [address] [place] [address] Dr. Jessica Jaime #0.00 103/ulNormal0.00-0.10The [facility] DublinComment on above:Performed By: #### CBCMAN #### [facility] [address] [place] [address] Dr. Jessica Jaime %0.0 %Critically low0.2-2.0The [facility] DublinComment on above:Performed By: #### CBCSUE #### [facility] [address] [place] [address] Dr. Jessica Sellers #NormalThe [facility] DublinComment on above:Performed By: #### JAGRUTI #### [facility] [address] [place] [address] Dr. Jessica GonzalezBLAST %NormalThe [facility] DublinComment on above:Performed By: #### JAGRUTI #### [facility] [address] [place] [address] Dr. Jessica GonzalezCORRECTED WBCNormal4.0-11.0The [facility] DublinComment on above: Performed By: #### JAGRUTI #### [facility] [address] [place] [address] Dr. Jessica Chowdhury #0.00 103/ulNormal0.00-0.70The [facility] DublinComment on above:Performed By: #### JAGRUTI #### [facility] [address] [place] [address] Dr. Jessica Chowdhury%0.0 %Critically low0.9-7.0The [facility] DublinComment on above:Performed By: #### JAGRUTI #### [facility] [address] [place] [address] Dr. Jessica GonzalezHCT37.7 %Wxvbru64.0-48.0The [facility] DublinComment on above: Performed By: #### JAGRUTI #### [facility] [address] [place] [address] Dr. Jessica GonzalezHGB12.6 g/alSzbcmk61.0-16.0The [facility] DublinComment on above: Performed By: #### JAGRUTI #### [facility] [address] [place] [address] Dr. Jessica Rodriguez #1.76 103/ulNormal1.20-3.80The [facility] DublinComment on above:Performed By: #### JAGRUTI #### [facility] [address] [address] [address] Jessica Rodriguez%9.0 %Critically low20.5-60.0The [facility] DublinComment on above:Performed By: #### CBCSUE #### [facility] [address] [place] [address] [address] Jessica MeadH33.4 dxHbrucg96.7-34.0The [facility] DublinComment on above: Performed By: #### CBCSUE #### [facility] [address] [place] [address] [address] Jessica MeadHC33.4 g/avBwhwgw40.9-35.2The [facility] DublinComment on above:Performed By: #### JAGRUTI #### [facility] [address] [address] [address] Jessica MeadV100.0 fLCritically high81.0-99.0The [facility] DublinComment on above:Performed By: #### CBCSUE #### [facility] [address] [place] [address] Dr. Jessica TellesELOCYTE #NormalThe [facility] DublinComment on above: Performed By: #### JAGRUTI #### [facility] [address] [place] [address] Dr. Jessica TellesELOCYTE %NormalThe [facility] DublinComment on above: Performed By: #### JAGRUTI #### [facility] [address] [place] [address] Dr. Jessica Downing#0.98 103/ulCritically high0.30-0.80The [facility] Comment on above:Performed By: #### JAGRUTI #### [facility] [address] [place] [address] Dr. Jessica Downing%5.0 %Normal1.7-12.0The [facility] DublinComment on above: Performed By: #### CBCSUE #### [facility] [address] [place] [address] [address] Jessica LunaV9.3 fLCritically low9.5-13.5The [facility] DublinComment on above:Performed By: #### JAGRUTI #### [facility] [address] [place] [address] [address] Jessica Perez #NormalGenesis HospitalComment on above:Performed By: #### JAGRUTI #### [facility] [address] [address] [address] Jessica De AndaOCYTE %NormalThe [facility] DublinComment on above:Performed By: #### JAGRUTI #### [facility] [address] [address] [address] Jessica ReyesNoUC Medical CenterComment on above:Performed By: #### JAGRUTI #### [facility] [address] [place] [address] Dr. Jessica SahuT271 103/cwUcfben479-654Zcb [facility] DublinComment on above: Performed By: #### JAGRUTI #### [facility] [address] [place] [address] Dr. Jessica DimasC3.77 106/ulCritically low4.20-5.40The [facility] DublinComment on above:Performed By: #### JAGRUTI #### [facility] [address] [place] [address] Dr. Jessica GonzalezRDW13.6 %Dnghfc48.0-15.0The [facility] DublinComment on above: Performed By: #### JAGRUTI #### [facility] [address] [place] [address] Dr. Jessica Raygoza #15.68 103/ulCritically high1.40-6.50The [facility] on above:Performed By: #### JAGRUTI #### [facility] [address] [place] [address] Dr. Jessica Raygoza %80.0 %Critically high43.0-75.0The [facility] DublinComment on above:Performed By: #### JAGRUTI #### [facility] [address] [place] [address] Dr. Jessica PérezBC19.6 103/ulCritically high4.0-11.0The [facility] DublinComment on above:Performed By: #### CBCMAN #### [facility] [address] [place] [address] Dr. Jessica GonzalezPROF CHEM 8 (BAS METB)on 02-97-0281Smlnd gap [Moles/Vol]12.0 mmol/LNormalThe [facility] DublinComment on above:Performed By: #### BMP #### [facility] [address] [place] [address] Dr. Jsesica GonzalezCalcium [Mass/Vol]8.7 mg/dLNormal8.4-10.2The [facility] Comment on above:Performed By: #### BMP #### [facility] [address] [place] [address] Dr. Jessica GonzalezChloride [Moles/Vol]103 mmol/DGzszid98-309Ejh [facility] Comment on above:Performed By: #### BMP #### [facility] [address] [place] [address] Dr. Jessica GonzalezCO2 [Moles/Vol]27.7 mmol/BAjezhn00.0-30.0The [facility] Comment on above:Performed By: #### BMP #### [facility] [address] [place] [address] Dr. Jessica GonzalezCreatinine [Mass/Vol]0.85 mg/dLNormal0.52-1.04The [facility] DublinComment on above:Performed By: #### BMP #### [facility] [address] [place] [address] Dr. Jessica GaviriaGFR-AF AFGHAN>60Normal>=60The [facility] [place] DublinComment on above:Performed By: #### BMP #### [facility] [address] [place] [address] Dr. Jessica GaviriaGFR-NON AF AFGHAN>60Normal>=60The [facility] [place] DublinComment on above:Performed By: #### BMP #### [facility] [address] [place] [address] Dr. Jessica GonzalezGlucose [Mass/Vol]156 mg/dLCritically [id number] [facility] [place] DublinComment on above:Performed By: #### BMP #### [facility] [address] [place] [address] Dr. Jessica GonzalezPotassium [Moles/Vol]3.7 mmol/LNormal3.4-5.0[facility] Comment on above:Performed By: #### BMP #### [facility] [address] [place] [address] Dr. Jessica Garzadium [Moles/Vol]139 mmol/UXjxvqs713-953XrdGenesis Hospital Comment on above:Performed By: #### BMP #### [facility] [address] [place] [address] Dr. Jessica GonzalezUrea nitrogen [Mass/Vol]18.0 mg/dLCritically high7.0-17.0The [facility] [place] DublinComment on above:Performed By: #### BMP #### [facility] [address] [place] [address] Dr. Jessica Cantu nitrogen/Creatinine [Mass ratio]21.2 mg/mgNormalThWood County HospitalComment on above:Performed By: #### BMP #### [facility] [address] [place] [address] Dr. Jessica Dowling W MANUAL DIFFon [id number] LYMPH #NormalGenesis HospitalComment on above:Performed By: #### CVDTBH #### [facility] [address] [place] [address] Dr. Jessica ChouYPICAL LYMPH %NormalThe [facility] [place] DublinComment on above: Performed By: #### CVDTBH #### [facility] [address] [place] [address] Dr. Jessica Zaidi #2.0 103/ulCritically high0.0-0.3TGenesis Hospital Comment on above:Performed By: #### CVDTBH #### [facility] [address] [place] [address] Dr. Jessica Zaidi %11 %Critically high0-5The [facility] [place] DublinComment on above:Performed By: #### CVDTBH #### [facility] [address] [place] [address] Dr. Jessica Jaime #0.00 103/ulNormal0.00-0.10The [facility] [place] DublinComment on above:Performed By: #### CVDTBH #### [facility] [address] [place] [address] Dr. Jessica Jaime %0.0 %Critically low0.2-2.0The [facility] [place] - DublinComment on above:Performed By: #### CVDTBH #### [facility] [address] [place] [address] Dr. Jessica Sellers #NormalThe [facility] [place] DublinComment on above:Performed By: #### CVDTBH #### [facility] [address] [place] [address] Dr. Jessica Sellers %NormalThe [facility] [place] DublinComment on above:Performed By: #### CVDTBH #### [facility] [address] [place] [address] Dr. Jessica GonzalezCORRECTED WBCNormal4.0-11.0The [facility] [place] DublinComment on above: Performed By: #### CVDTBH #### [facility] [address] [place] [address] Dr. Jessica Chowdhury #0.18 103/ulNormal0.00-0.70The [facility] [place] DublinComment on above:Performed By: #### CVDTBH #### [facility] [address] [place] [address] Dr. Jessica Chowdhury%1.0 %Normal0.9-7.0The [facility] [place] DublinComment on above: Performed By: #### CVDTBH #### [facility] [address] [place] [address] Dr. Jessica GonzalezHCT37.5 %Ytyzxq09.0-48.0The [facility] DublinComment on above: Performed By: #### CVDTBH #### [facility] [address] [place] [address] Dr. Jessica GonzalezHGB12.5 g/zyIjgmnq12.0-16.0The [facility] [place] DublinComment on above: Performed By: #### CVDTBH #### [facility] [address] [place] [address] Dr. Jessica Rodriguez #2.00 103/ulNormal1.20-3.80The [facility] [place] DublinComment on above:Performed By: #### CVDTBH #### [facility] [address] [place] [address] Dr. Jessica Rodriguez%11.0 %Critically low20.5-60.0The [facility] [place] DublinComment on above:Performed By: #### CVDTBH #### [facility] [address] [place] [address] Dr. Jessica MeadH33.2 kqKavavl98.7-34.0The [facility] DublinComment on above: Performed By: #### NOEMÍTBH #### [facility] [address] [place] [address] Dr. Jessica MeadHC33.3 g/ojQnsygp27.9-35.2The [facility] [place] DublinComment on above:Performed By: #### CVDTBH #### [facility] [address] [place] [address] Dr. Jessica MeadV99.7 fLCritically high81.0-99.0The [facility] [place] DublinComment on above:Performed By: #### NOEMÍTBH #### [facility] [address] [place] [address] Dr. Jessica IbrahimOCYTE #NormalThe [facility] [place] DublinComment on above: Performed By: #### CVDTBH #### [facility] [address] [place] [address] Dr. Jessica IbrahimOCYTE %NormalThe [facility] [place] DublinComment on above: Performed By: #### CVDTBH #### [facility] [address] [place] [address] Dr. Jessica Downing#1.46 103/ulCritically high0.30-0.80The [facility] Comment on above:Performed By: #### CVDTBH #### [facility] [address] [address] [address] Jessica Downing%8.0 %Normal1.7-12.0The [facility] DublinComment on above: Performed By: #### CVDTBH #### [facility] [address] [address] [address] Jessica GonzalezMPV10.2 fLNormal9.5-13.5The [facility] DublinComment on above: Performed By: #### CVDTBH #### [facility] [address] [place] [address] Dr. Jessica De AndaOCYTE #NormalThe [facility] DublinComment on above:Performed By: #### CVDTBH #### [facility] [address] [place] [address] Dr. Jessica De AndaOCYTE %NormalThe [facility] DublinComment on above:Performed By: #### CVDTBH #### [facility] [address] [place] [address] Dr. Jessica GonzalezNRBCNormalThe [facility] DublinComment on above:Performed By: #### CVDTBH #### [facility] [address] [place] [address] Dr. Jessica SahuT223 103/imGlvfia408-715Ozc [facility] DublinComment on above: Performed By: #### CVDTBH #### [facility] [address] [place] [address] Dr. Jessica DimasC3.76 106/ulCritically low4.20-5.40The [facility] DublinComment on above:Performed By: #### CVDTBH #### [facility] [address] [place] [address] Dr. Jessica GonzalezRDW13.8 %Xpavbe77.0-15.0The [facility] DublinComment on above: Performed By: #### CVDTBH #### [facility] [address] [place] [address] Dr. Jessica Raygoza #12.56 103/ulCritically high1.40-6.50The [facility] Comment on above:Performed By: #### CVDTBH #### [facility] [address], [place] [address] Dr. Jessica Raygoza %69.0 %Mfrhei95.0-75.0The [facility] DublinComment on above: Performed By: #### CVDTBH #### [facility] [address], [place] [address] Dr. Jessica GonzalezWBC18.2 103/ulCritically high4.0-11.0The [facility] [place] DublinComment on above:Performed By: #### CVDTBH #### [facility] [address], [place] [address] Dr. Jessica GonzalezCT CHEST WO CONon [id number] CHEST WO CONEXAMINATION: CT CHEST WO CON [...] Electronically authenticated by: CALI BRITO Date: 2021-06-13 09:23[facility] HospitalPROF CHEM 8 (BAS METB)on [id number] gap [Moles/Vol]11.7 mmol/LNormalThe [facility] DublinComment on above:Performed By: #### CVDTBH #### [facility] [address] [place] [address] Dr. Jessica GonzalezCalcium [Mass/Vol]8.9 mg/dLNormal8.4-10.2The [facility] Comment on above:Performed By: #### CVDTBH #### [facility] [address] [place] [address] Dr. Jessica GonzalezChloride [Moles/Vol]106 mmol/EStxfpj97-151Yba [facility] Comment on above:Performed By: #### CVDTBH #### [facility] [address] [place] [address] Dr. Jessica GonzalezCO2 [Moles/Vol]26.1 mmol/PJppdkr17.0-30.0The [facility] Comment on above:Performed By: #### CVDTBH #### [facility] [address] [place] [address] Dr. Jessica GonzalezCreatinine [Mass/Vol]0.81 mg/dLNormal0.52-1.04The [facility] DublinComment on above:Performed By: #### CVDTBH #### [facility] [address] [place] [address] Dr. Jessica GaviriaGFR-AF AFGHAN>60Normal>=60The [facility] [place] DublinComment on above:Performed By: #### CVDTBH #### [facility] [address] [place] [address] Dr. Jessica GaviriaGFR-NON AF AFGHAN>60Normal>=60The [facility] DublinComment on above:Performed By: #### CVDTBH #### [facility] [address] [place] [address] Dr. Jessica GonzalezGlucose [Mass/Vol]167 mg/dLCritically amzu26-598Pup [facility] DublinComment on above:Performed By: #### CVDTBH #### [facility] [address] [place] [address] Dr. Jessica GonzalezPotassium [Moles/Vol]3.8 mmol/LNormal3.4-5.0The [facility] Comment on above:Performed By: #### CVDTBH #### [facility] [address] [place] [address] Dr. Jessica GonzalezSodium [Moles/Vol]140 mmol/JHxqleq418-016Szh [facility] Comment on above:Performed By: #### CVDTBH #### [facility] [address] [place] [address] Dr. Jessica Cantu nitrogen [Mass/Vol]19.0 mg/dLCritically high7.0-17.0The [facility] [place] DublinComment on above:Performed By: #### CVDTBH #### [facility] [address] [place] [address] Dr. Jessica Cantu nitrogen/Creatinine [Mass ratio]23.5 mg/mgMercy Health Defiance HospitalComment on above:Performed By: #### CVDTBH #### [facility] [address] [place] [address] Dr. Jessica GonzalezXR CHEST 2 Von [id number] CHEST 2 VEXAM: XR CHEST 2 V [...] Electronically authenticated by: CALI BRITO Date: 2021-06-13 07:00[facility] W MANUAL DIFFon [id number] LYMPH #NormalThe [facility] [place] DublinComment on above:Performed By: #### CVDTBH #### [facility] [address] [place] [address] Dr. Jessica GonzalezATYPICAL LYMPH %NormalThe [facility] [place] DublinComment on above: Performed By: #### CVDTBH #### [facility] [address] [place] [address] Dr. Jessica Zaidi #1.3 103/ulCritically high0.0-0.3The [facility] Comment on above:Performed By: #### CVDTBH #### [facility] [address] [place] [address] Dr. Jessica Zaidi %8 %Critically high0-5The [facility] HospitalComment on above: Performed By: #### CVDTBH #### [facility] [address] [place] [address] Dr. Jessica Jaime #0.00 103/ulNormal0.00-0.10The [facility] HospitalComment on above:Performed By: #### CVDTBH #### [facility] [address] [place] [address] Dr. Jessica Jaime %0.0 %Critically low0.2-2.0The [facility] DublinComment on above:Performed By: #### CVDTBH #### [facility] [address] [place] [address] Dr. Jessica Sellers #NormalThe [facility] HospitalComment on above:Performed By: #### CVDTBH #### [facility] [address] [place] [address] Dr. Jessica Sellers %NormalCleveland Clinic Marymount Hospital HospitalComment on above:Performed By: #### CVDTBH #### [facility] [address] [place] [address] Dr. Jessica GonzalezCORRECTED WBCNormal4.0-11.0The [facility] DublinComment on above: Performed By: #### CVDTBH #### [facility] [address] [place] [address] Dr. Jessica Chowdhury #0.00 103/ulNormal0.00-0.70The [facility] [place] DublinComment on above:Performed By: #### CVDTBH #### [facility] [address] [place] [address] Dr. Jessica Chowdhury%0.0 %Critically low0.9-7.0The [facility] HospitalComment on above:Performed By: #### CVDTBH #### [facility] [address] [address] [address] Jessica GonzalezHCT35.4 %Critically low36.0-48.0The [facility] [place] DublinComment on above:Performed By: #### CVDTBH #### [facility] [address] [address] [address] Jessica GonzalezHGB11.9 g/dlCritically low12.0-16.0The [facility] [place] DublinComment on above:Performed By: #### CVDTBH #### [facility] [address] [address] [address] Jessica Rodriguez #0.63 103/ulCritically low1.20-3.80The [facility] Comment on above:Performed By: #### CVDTBH #### [facility] [address] [address] [address] Jessica Rodriguez%4.0 %Critically low20.5-60.0The [facility] DublinComment on above:Performed By: #### CVDTBH #### [facility] [address] [address] [address] Jessica MeadH33.3 hdDvpqhs69.7-34.0The [facility] DublinComment on above: Performed By: #### CVDTBH #### [facility] [address] [address] [address] Jessica MeadHC33.6 g/jyNamtbx12.9-35.2The [facility] DublinComment on above:Performed By: #### CVDTBH #### [facility] [address] [address] [address] Jessica MeadV99.2 fLCritically high81.0-99.0The [facility] [place] DublinComment on above:Performed By: #### CVDTBH #### [facility] [address] [place] [address] Dr. Jessica NarvaezCHILDREN'S OF ALABAMA RUSSELL CAMPUSELOCYTE #NormalThe [facility] DublinComment on above: Performed By: #### CVDTBH #### [facility] [address] [place] [address] Dr. Jessica NarvaezAMYELOCYTE %NormalGenesis HospitalComment on above: Performed By: #### CVDTBH #### [facility] [address] [place] [address] Dr. Jessica Downing#0.79 103/ulNormal0.30-0.80The [facility] HospitalComment on above:Performed By: #### CVDTBH #### [facility] [address] [place] [address] Dr. Jessica Downing%5.0 %Normal1.7-12.0The [facility] DublinComment on above: Performed By: #### CVDTBH #### [facility] [address] [place] [address] Dr. Jessica GonzalezMPV9.4 fLCritically low9.5-13.5The [facility] DublinComment on above:Performed By: #### CVDTBH #### [facility] [address] [place] [address] Dr. Jessica De AndaOCYTE #NormalThe [facility] DublinComment on above:Performed By: #### CVDTBH #### [facility] [address] [place] [address] Dr. Jessica De AndaOCYTE %NormalThe [facility] DublinComment on above:Performed By: #### CVDTBH #### [facility] [address] [place] [address] Dr. Jessica GonzalezNRBCNormalThe [facility] DublinComment on above:Performed By: #### CVDTBH #### [facility] [address] [place] [address] Dr. Jessica GonzalezPLT241 103/hdWjoqbk989-874Xcl [facility] HospitalComment on above: Performed By: #### CVDTBH #### [facility] [address] [place] [address] Dr. Jessica GonzalezRBC3.57 106/ulCritically low4.20-5.40The [facility] DublinComment on above:Performed By: #### CVDTBH #### [facility] [address] [address] [address] Jessica GonzalezRDW13.5 %Ixpfry51.0-15.0The [facility] DublinComment on above: Performed By: #### CVDTBH #### [facility] [address] [place] [address] Dr. Jessica Raygoza #13.11 103/ulCritically high1.40-6.50The [facility] Comment on above:Performed By: #### CVDTBH #### [facility] [address] [place] [address] Dr. Jessica Raygoza %83.0 %Critically high43.0-75.0The [facility] DublinComment on above:Performed By: #### CVDTBH #### [facility] [address] [place] [address] Dr. Jessica GonzalezWBC15.8 103/ulCritically high4.0-11.0The [facility] DublinComment on above:Performed By: #### CVDTBH #### [facility] [address] [place] [address] Dr. Jessica GonzalezPROF CHEM 8 (BAS METB)on [id number] gap [Moles/Vol]12.6 mmol/LNormalGenesis HospitalComment on above:Performed By: #### BMP #### [facility] [address] [place] [address] Dr. Jessica GonzalezCalcium [Mass/Vol]8.9 mg/dLNormal8.4-10.2[facility] Comment on above:Performed By: #### BMP #### [facility] [address] [place] [address] Dr. Jessica GonzalezChloride [Moles/Vol]106 mmol/XNuqgml33-306Fpp [facility] Comment on above:Performed By: #### BMP #### [facility] [address] [place] [address] Dr. Jessica GonzalezCO2 [Moles/Vol]26.0 mmol/KFjvrbn45.0-30.0The [facility] Comment on above:Performed By: #### BMP #### [facility] [address] [address] [address] Jessica GonzalezCreatinine [Mass/Vol]0.72 mg/dLNormal0.52-1.04The [facility] DublinComment on above:Performed By: #### BMP #### [facility] [address] [address] [address] Lopez ChangEGFR-AF AFGHAN>60Normal>=60The [facility] DublinComment on above:Performed By: #### BMP #### [facility] [address] [address] [address] Jessica GaviriaGFR-NON AF AFGHAN>60Normal>=60The [facility] DublinComment on above:Performed By: #### BMP #### [facility] [address] [address] [address] Jessica GonzalezGlucose [Mass/Vol]132 mg/dLCritically tuxu94-106Cul [facility] DublinComment on above:Performed By: #### BMP #### [facility] [address] [address] [address] Jessica GonzalezPotassium [Moles/Vol]3.6 mmol/LNormal3.4-5.0The [facility] Comment on above:Performed By: #### BMP #### [facility] [address] [place] [address] Dr. Jessica GonzalezSodium [Moles/Vol]141 mmol/CZhtwza164-503Ycb [facility] Comment on above:Performed By: #### BMP #### [facility] [address] [address] [address] Jessica GonzalezUrea nitrogen [Mass/Vol]21.0 mg/dLCritically high7.0-17.0The [facility] DublinComment on above:Performed By: #### BMP #### [facility] [address] [address] [address] Jessica GonzalezUrea nitrogen/Creatinine [Mass ratio]29.2 mg/mgNormalThe [facility] DublinComment on above:Performed By: #### BMP #### [facility] [address] [place] [address] Dr. Jessica Dowling AUTO DIFFon [id number] #0.0 103/ulNormal0.0-0.1The [facility] DublinComment on above:Performed By: #### CVDTBH #### [facility] [address] [place] [address] Dr. Jessica GonzalezBasophils/100 WBC (Bld)0.1 %Critically low0.2-2.0The [facility] DublinComment on above:Performed By: #### CVDTBH #### [facility] [address] [place] [address] Dr. Jessica Golden #0.0 103/ulNormal0.0-0.7The [facility] DublinComment on above: Performed By: #### CVDTBH #### [facility] [address] [place] [address] Dr. Jessica Gaviriaosinophils/100 WBC (Bld)0.1 %Critically low0.9-7.0The [facility] DublinComment on above:Performed By: #### CVDTBH #### [facility] [address] [place] [address] Dr. Jessica Gaviriarythrocyte distribution width (RBC) [Ratio]13.2 %Ceclic43.0-15.0 The [facility] DublinComment on above:Performed By: #### CVDTBH #### [facility] [address] [place] [address] Dr. Jessica GonzalezHematocrit (Bld) [Volume fraction]36.3 %Haegvf57.0-48.0[facility] HospitalComment on above:Performed By: #### CVDTBH #### [facility] [address] [place] [address] Dr. Jessica GonzalezHemoglobin (Bld) [Mass/Vol]12.1 g/oNQzusul77.0-16.0[facility] HospitalComment on above:Performed By: #### CVDTBH #### [facility] [address] [place] [address] Dr. Yilan ChangIG #1.99 10e3/ulCritically high0.00-0.03[facility] Comment on above:Performed By: #### CVDTBH #### [facility] [address] [place] [address] Dr. Jessica Davidson %11.1 %Critically high0.0-0.5The [facility] DublinComment on above:Performed By: #### CVDTBH #### [facility] [address] [place] [address] Dr. Jessica Bonds #1.1 103/ulCritically low1.2-3.8The [facility] Comment on above:Performed By: #### CVDTBH #### [facility] [address] [place] [address] Dr. Jessica Galvanhocytes/100 WBC (Bld)6.1 %Critically low20.5-60.0The [facility] DublinComment on above:Performed By: #### CVDTBH #### [facility] [address] [place] [address] Dr. Jessica ValenciaUAL DIFF REQNONormalThe [facility] DublinComment on above: Performed By: #### CVDTBH #### [facility] [address] [place] [address] Dr. Jessica Mead (RBC) [Entitic mass]33.0 qaBesufc73.7-34.0The [facility] DublinComment on above:Performed By: #### CVDTBH #### [facility] [address] [place] [address] Dr. Jessica Mead (RBC) [Mass/Vol]33.3 g/ePMdrjvg47.9-35.2The [facility] DublinComment on above:Performed By: #### CVDTBH #### [facility] [address] [place] [address] Dr. Jessica Mead (RBC) [Entitic vol]98.9 iYPinzyp93.0-99.0The [facility] DublinComment on above:Performed By: #### CVDTBH #### [facility] [address] [place] [address] Dr. Jessica Manriquez #0.5 103/ulNormal0.3-0.8The [facility] DublinComment on above:Performed By: #### CVDTBH #### [facility] [address] [place] [address] Dr. Jessica Eastocytes/100 WBC (Bld)2.8 %Normal1.7-12.0[facility] Comment on above:Performed By: #### CVDTBH #### [facility] [address] [place] [address] Dr. Jessica Martin #14.3 103/ulCritically high1.4-6.5The [facility] Comment on above:Performed By: #### CVDTBH #### [facility] [address] [place] [address] Dr. Jessica Valdezutrophils/100 WBC (Bld)79.8 %Critically high43.0-75.0The [facility] DublinComment on above:Performed By: #### CVDTBH #### [facility] [address] [place] [address] Dr. Jessica Quezada mean volume (Bld) [Entitic vol]9.6 fLNormal9.5-13.5The [facility] DublinComment on above:Performed By: #### CVDTBH #### [facility] [address] [place] [address] Dr. Jessica GonzalezPLT237 103/djHdojeq335-628Qbi [facility] DublinComment on above: Performed By: #### CVDTBH #### [facility] [address] [place] [address] Dr. Jessica GonzalezRBC3.67 106/ulCritically low4.20-5.40The [facility] DublinComment on above:Performed By: #### CVDTBH #### [facility] [address] [place] [address] Dr. Jessica GonzalezWBC18.0 103/ulCritically high4.0-11.0The [facility] DublinComment on above:Performed By: #### CVDTBH #### [facility] [address] [place] [address] Dr. Jessica Proctor SPUTUMon [id number] SPUTUMCulture Observations: Normal respiratory eugenio also seen. [...] <=10 S F Oxacillin <=0.25 S FNormalThe [facility] DublinComment on above:Performed By: #### BMP #### [facility] [address] [place] [address] Dr. Jessica GonzalezPROF CHEM 8 (BAS METB)on [id number] gap [Moles/Vol]12.5 mmol/LNormalGenesis HospitalComment on above:Performed By: #### BMP #### [facility] [address] [place] [address] Dr. Jessica GonzalezCalcium [Mass/Vol]9.2 mg/dLNormal8.4-10.2[facility] Comment on above:Performed By: #### BMP #### [facility] [address] [place] [address] Dr. Jessica GonzalezChloride [Moles/Vol]107 mmol/EFymiik12-889FxnGenesis Hospital Comment on above:Performed By: #### BMP #### [facility] [address] [place] [address] Dr. Jessica GonzalezCO2 [Moles/Vol]25.3 mmol/WOmuhtv04.0-30.0[facility] Comment on above:Performed By: #### BMP #### [facility] [address] [place], [place] [address] Dr. Jessica GonzalezCreatinine [Mass/Vol]0.77 mg/dLNormal0.52-1.04The [facility] DublinComment on above:Performed By: #### BMP #### [facility] [address] [place] [address] Dr. Jessica GaviriaGFR-AF AFGHAN>60Normal>=60The [facility] DublinComment on above:Performed By: #### BMP #### [facility] [address] [place] [address] Dr. Jessica GaviriaGFR-NON AF AFGHAN>60Normal>=60The [facility] DublinComment on above:Performed By: #### BMP #### [facility] [address] [place] [address] Dr. Jessica GonzalezGlucose [Mass/Vol]163 mg/dLCritically flck64-748Zzz [facility] DublinComment on above:Performed By: #### BMP #### [facility] [address] [place] [address] Dr. Jessica GonzalezPotassium [Moles/Vol]3.8 mmol/LNormal3.4-5.0The [facility] Comment on above:Performed By: #### BMP #### [facility] [address] [place] [address] Dr. Jessica GonzalezSodium [Moles/Vol]141 mmol/MQdwsao538-056Mzb [facility] Comment on above:Performed By: #### BMP #### [facility] [address] [place] [address] Dr. Jessica GonzalezUrea nitrogen [Mass/Vol]19.0 mg/dLCritically high7.0-17.0The [facility] DublinComment on above:Performed By: #### BMP #### [facility] [address] [place] [address] Dr. Jessica Cantu nitrogen/Creatinine [Mass ratio]24.7 mg/mgNormalThe [facility] DublinComment on above:Performed By: #### BMP #### [facility] [address] [place] [address] Dr. Jessica GonzalezVANCOMYCIN TROUGHon [id number] TROUGH9.1 ug/mlNormal 5.0-20.0The [facility] HospitalComment on above:Performed By: #### VANCT #### [facility] [address] [address] [address] Jessica Dowling W MANUAL DIFFon [id number] LYMPH #NormalThe [facility] HospitalComment on above:Performed By: #### BMP #### [facility] [address] [address] [address] Jessica ChouYPICAL LYMPH %NormalCleveland Clinic Marymount Hospital HospitalComment on above: Performed By: #### BMP #### [facility] [address] [place] [address] Dr. Jessica Zaidi #1.2 103/ulCritically high0.0-0.3The [facility] Comment on above:Performed By: #### BMP #### [facility] [address] [place] [address] Dr. Jessica Zaidi %6 %Critically high0-5The [facility] DublinComment on above: Performed By: #### BMP #### [facility] [address] [place] [address] Dr. Jessica Jaime #0.00 103/ulNormal0.00-0.10The [facility] DublinComment on above:Performed By: #### BMP #### [facility] [address] [address] [address] Jessica Jaime %0.0 %Critically low0.2-2.0The [facility] DublinComment on above:Performed By: #### BMP #### [facility] [address] [address] [address] Jessica Sellers #NormalCleveland Clinic Marymount Hospital HospitalComment on above:Performed By: #### BMP #### [facility] [address] [place] [address] Dr. Jessica Sellers %NormalCleveland Clinic Marymount Hospital HospitalComment on above:Performed By: #### BMP #### [facility] [address] [place] [address] Dr. Jessica MeijaRRECTED WBCNormal4.0-11.0The [facility] DublinComment on above: Performed By: #### BMP #### [facility] [address] [place] [address] Dr. Jessica Chowdhury #0.00 103/ulNormal0.00-0.70The [facility] HospitalComment on above:Performed By: #### BMP #### [facility] [address] [place] [address] Dr. Jessica Chowdhury%0.0 %Critically low0.9-7.0The [facility] DublinComment on above:Performed By: #### BMP #### [facility] [address] [place] [address] Dr. Jessica GuajardoT34.2 %Critically low36.0-48.0The [facility] DublinComment on above:Performed By: #### BMP #### [facility] [address] [place] [address] Dr. Jessica GonzalezHGB11.6 g/dlCritically low12.0-16.0The [facility] DublinComment on above:Performed By: #### BMP #### [facility] [address] [place] [address] Dr. Jessica Rodriguez #0.60 103/ulCritically low1.20-3.80The [facility] Comment on above:Performed By: #### BMP #### [facility] [address] [place] [address] Dr. Jessica Rodriguez%3.0 %Critically low20.5-60.0The [facility] DublinComment on above:Performed By: #### BMP #### [facility] [address] [place] [address] Dr. Jessica MeadH33.5 cmVjrmfd53.7-34.0The [facility] DublinComment on above: Performed By: #### BMP #### [facility] [address] [place] [address] Dr. Jessica MeadHC33.9 g/liEwczch14.9-35.2The [facility] DublinComment on above:Performed By: #### BMP #### [facility] [address] [address] [address] Jessica MeadV98.8 rTOyepjh29.0-99.0The [facility] DublinComment on above: Performed By: #### BMP #### [facility] [address] [address] [address] Jessica IbrahimOCYTE #0.2 103/ulNoUC Medical CenterComment on above:Performed By: #### BMP #### [facility] [address] [place] [address] Dr. Jessica IbrahimOCYTE %1 %NormalGenesis HospitalComment on above: Performed By: #### BMP #### [facility] [address] [place] [address] Dr. Jessica Downing#0.60 103/ulNormal0.30-0.80The [facility] DublinComment on above:Performed By: #### BMP #### [facility] [address] [place] [address] Dr. Jessica Downing%3.0 %Normal1.7-12.0[facility] HospitalComforest health [facility] on above: Performed By: #### BMP #### [facility] [address] [place] [address] Dr. Jessica Palomino9.7 fLNormal9.5-13.5The [facility] DublinComment on above: Performed By: #### BMP #### [facility] [address] [place] [address] Dr. Jessica Perez #NormalGenesis HospitalComforest health medical center on above:Performed By: #### BMP #### [facility] [address] [place] [address] Dr. Jessica Perez %NormalGenesis HospitalComment on above:Performed By: #### BMP #### [facility] [address] [place] [address] Dr. Jessica GonzalezNRPATTIENormalThe Nima HospitalComment on above:Performed By: #### BMP #### [facility] [address] [address] [address] Jessica GonzalezPLT233 103/txCozylr535-641Sog [facility] DublinComment on above: Performed By: #### BMP #### [facility] [address] [address] [address] Jessica GonzalezRBC3.46 106/ulCritically low4.20-5.40The [facility] DublinComment on above:Performed By: #### BMP #### [facility] [address] [place] [address] Dr. Jessica GonzalezRDW13.1 %Jssvlw63.0-15.0The [facility] DublinComment on above: Performed By: #### BMP #### [facility] [address] [place] [address] Dr. Jessica Raygoza #17.31 103/ulCritically high1.40-6.50The [facility] Comment on above:Performed By: #### BMP #### [facility] [address] [place] [address] Dr. Jessica Raygoza %87.0 %Critically high43.0-75.0The [facility] DublinComment on above:Performed By: #### BMP #### [facility] [address] [place] [address] Dr. Jessica GonzalezWBC19.9 103/ulCritically high4.0-11.0The [facility] DublinComment on above:Performed By: #### BMP #### [facility] [address] [place] [address] Dr. Jessica GonzalezPROF CHEM 8 (BAS METB)on 44-67-5964Yxurz gap [Moles/Vol]11.7 mmol/LNormalThe [facility] DublinComment on above:Performed By: #### CVDTBH #### [facility] [address] [place] [address] Dr. Jessica GonzalezCalcium [Mass/Vol]9.5 mg/dLNormal8.4-10.2The [facility] Comment on above:Performed By: #### CVDTBH #### [facility] [address] [address] [address] Jessica GonzalezChloride [Moles/Vol]104 mmol/ZHzlfzr69-968Hvj [facility] Comment on above:Performed By: #### CVDTBH #### [facility] [address] [address] [address] Jessica GonzalezCO2 [Moles/Vol]27.0 mmol/VFirzqb90.0-30.0The [facility] Comment on above:Performed By: #### CVDTBH #### [facility] [address] [address] [address] Jessica GonzalezCreatinine [Mass/Vol]0.69 mg/dLNormal0.52-1.04The [facility] DublinComment on above:Performed By: #### CVDTBH #### [facility] [address] [address] [address] Jessica GaviriaGFR-AF AFGHAN>60Normal>=60The [facility] DublinComment on above:Performed By: #### CVDTBH #### [facility] [address] [address] [address] Jessica GaviriaGFR-NON AF AFGHAN>60Normal>=60The [facility] DublinComment on above:Performed By: #### CVDTBH #### [facility] [address] [address] [address] Jessica GonzalezGlucose [Mass/Vol]163 mg/dLCritically lgop11-044Kop [facility] DublinComment on above:Performed By: #### CVDTBH #### [facility] [address] [address] [address] Jessica GonzalezPotassium [Moles/Vol]3.7 mmol/LNormal3.4-5.0The [facility] Comment on above:Performed By: #### CVDTBH #### [facility] [address] [address] [address] Jesscia GonzalezSodium [Moles/Vol]139 mmol/KLjwkcr856-648Vpj [facility] Comment on above:Performed By: #### CVDTBH #### [facility] [address] [address] [address] Jessica GonzalezUrea nitrogen [Mass/Vol]20.0 mg/dLCritically high7.0-17.0The [facility] DublinComment on above:Performed By: #### CVDTBH #### [facility] [address] [place] [address] Dr. Jessica GonzalezUrea nitrogen/Creatinine [Mass ratio]29.0 mg/mgNormLicking Memorial HospitalComment on above:Performed By: #### CVDTBH #### [facility] [address] [place] [address] Dr. Jessica GonzalezXR CHEST 2 Von [id number] CHEST 2 VEXAM: XR CHEST 2 V [...] Electronically authenticated by: CALI BRITO Date: 2021-06-10 07:02[facility] AUTO DIFFon [id number] #0.1 103/ulNormal0.0-0.1The [facility] DublinComment on above:Performed By: #### CBC #### [facility] [address] [place] [address] Dr. Jessica GonzalezBasophils/100 WBC (Bld)0.4 %Normal0.2-2.0The [facility] Comment on above:Performed By: #### CBC #### [facility] [address] [place] [address] Dr. Jessica Golden #0.0 103/ulNormal0.0-0.7The [facility] DublinComment on above: Performed By: #### CBC #### [facility] [address] [place], [place] [address] Dr. Jessica Gaviriaosinophils/100 WBC (Bld)0.0 %Critically low0.9-7.0The [facility] DublinComment on above:Performed By: #### CBC #### [facility] [address] [place] [address] Dr. Jessica Gaviriarythrocyte distribution width (RBC) [Ratio]12.8 %Updfuw25.0-15.0 The [facility] DublinComment on above:Performed By: #### CBC #### [facility] [address] [place] [address] Dr. Jessica GonzalezHematocrit (Bld) [Volume fraction]37.2 %Obotlg11.0-48.0The [facility] DublinComment on above:Performed By: #### CBC #### [facility] [address] [place] [address] Dr. Jessica GonzalezHemoglobin (Bld) [Mass/Vol]12.6 g/sAMylmca35.0-16.0The [facility] DublinComment on above:Performed By: #### CBC #### [facility] [address] [place] [address] Dr. Jessica Davidson #0.22 10e3/ulCritically high0.00-0.03[facility] Comment on above:Performed By: #### CBC #### [facility] [address] [place] [address] Dr. Jessica Davidson %1.2 %Critically high0.0-0.5The [facility] DublinComment on above:Performed By: #### CBC #### [facility] [address] [place] [address] Dr. Jessica PateMPH #0.8 103/ulCritically low1.2-3.8The [facility] Comment on above:Performed By: #### CBC #### [facility] [address] [place] [address] Dr. Jessica Patemphocytes/100 WBC (Bld)4.2 %Critically low20.5-60.0The [facility] DublinComment on above:Performed By: #### CBC #### [facility] [address] [place] [address] Dr. Jessica España DIFF REQNONormalThe [facility] DublinComment on above: Performed By: #### CBC #### [facility] [address] [place] [address] Dr. Jessica Mead (RBC) [Entitic mass]33.4 tcIlqopj85.7-34.0The [facility] DublinComment on above:Performed By: #### CBC #### [facility] [address] [place] [address] Dr. Jessica Mead (RBC) [Mass/Vol]33.9 g/rOYegmea09.9-35.2The [facility] DublinComment on above:Performed By: #### CBC #### [facility] [address] [place] [address] Dr. Jessica Mead (RBC) [Entitic vol]98.7 vEUxngem33.0-99.0[facility] HospitalComment on above:Performed By: #### CBC #### [facility] [address] [place] [address] Dr. Jessica Manriquez #0.4 103/ulNormal0.3-0.8The [facility] on above:Performed By: #### CBC #### [facility] [address] [place] [address] Dr. Jessica Eastocytes/100 WBC (Bld)2.3 %Normal1.7-12.0[facility] Comment on above:Performed By: #### CBC #### [facility] [address] [place] [address] Dr. Jessica Martin #17.0 103/ulCritically high1.4-6.5The [facility] Comment on above:Performed By: #### CBC #### [facility] [address] [place] [address] Dr. Jessica Valdezutrophils/100 WBC (Bld)91.9 %Critically high43.0-75.0The [facility] HospitalComment on above:Performed By: #### CBC #### [facility] [address] [address] [address] Jessica GonzalezPlatelet mean volume (Bld) [Entitic vol]9.9 fLNormal9.5-13.5The [facility] DublinComment on above:Performed By: #### CBC #### [facility] [address] [address] [address] Jessica GonzalezPLT247 103/rmSrrmoz289-792Cdl [facility] DublinComment on above: Performed By: #### CBC #### [facility] [address] [place] [address] Dr. Jessica GonzalezRBC3.77 106/ulCritically low4.20-5.40The [facility] DublinComment on above:Performed By: #### CBC #### [facility] [address] [place] [address] Dr. Jessica GonzalezWBC18.5 103/ulCritically high4.0-11.0The [facility] DublinComment on above:Performed By: #### CBC #### [facility] [address] [place] [address] Dr. Jessica GonzalezPROF CHEM 8 (BAS METB)on [id number] gap [Moles/Vol]15.3 mmol/LNormalThe [facility] DublinComment on above:Performed By: #### CVDTBH #### [facility] [address] [place] [address] Dr. Jessica GonzalezCalcium [Mass/Vol]9.8 mg/dLNormal8.4-10.2The [facility] Comment on above:Performed By: #### CVDTBH #### [facility] [address] [place] [address] Dr. Jessica GonzalezChloride [Moles/Vol]102 mmol/ZNrnbkv16-210Mvh [facility] Comment on above:Performed By: #### CVDTBH #### [facility] [address] [place] [address] Dr. Jessica GonzalezCO2 [Moles/Vol]24.1 mmol/QFxcuyn74.0-30.0[facility] Comment on above:Performed By: #### CVDTBH #### [facility] [address] [address] [address] Jessica GonzalezCreatinine [Mass/Vol]0.83 mg/dLNormal0.52-1.04The [facility] DublinComment on above:Performed By: #### CVDTBH #### [facility] [address] [address] [address] Jessica GaviriaGFR-AF AFGHAN>60Normal>=60The [facility] DublinComment on above:Performed By: #### CVDTBH #### [facility] [address] [place] [address] Dr. Jessica GaviriaGFR-NON AF AFGHAN>60Normal>=60The [facility] DublinComment on above:Performed By: #### CVDTBH #### [facility] [address] [place] [address] Dr. Jessica GonzalezGlucose [Mass/Vol]165 mg/dLCritically poou05-241Hxm [facility] DublinComment on above:Performed By: #### CVDTBH #### [facility] [address] [place] [address] Dr. Jessica GonzalezPotassium [Moles/Vol]3.4 mmol/LNormal3.4-5.0[facility] Comment on above:Performed By: #### CVDTBH #### [facility] [address] [address] [address] Jessica GonzalezSodium [Moles/Vol]138 mmol/NKprmvm565-817Eyl [facility] Comment on above:Performed By: #### CVDTBH #### [facility] [address] [address] [address] Jessica GonzalezUrea nitrogen [Mass/Vol]21.0 mg/dLCritically high7.0-17.0The [facility] DublinComment on above:Performed By: #### CVDTBH #### [facility] [address] [place] [address] Dr. Jessica GonzalezUrea nitrogen/Creatinine [Mass ratio]25.3 mg/mgNormalThe [facility] DublinComment on above:Performed By: #### CVDTBH #### [facility] [address] [place] [address] Dr. Jessica GonzalezRESPIRATORY PANEL PLUSon [id number] detectedNormal NOT DETECTEDThe [facility] DublinComment on above:Performed By: #### SPUTGS #### [facility] [address] [place] [address] Dr. Jessica Penn ParapertusisNot detectedNormalNOT DETECTEDThe [facility] DublinComment on above:Performed By: #### SPUTGS #### [facility] [address] [place] [address] Dr. Jessica Penn PertussisNot detectedNormalNOT DETECTEDThe [facility] on above:Performed By: #### SPUTGS #### [facility] [address] [place] [address] Dr. Jessica GonzalezChlamydia PneumoniaeNot detectedNormalNOT DETECTEDThe [facility] DublinComment on above:Performed By: #### SPUTGS #### [facility] [address] [place] [address] Dr. Jessica GonzalezCoronavirus 229ENot detectedNormalNOT DETECTEDThe [facility]Com[facility] on above:Performed By: #### SPUTGS #### [facility] [address] [place] [address] Dr. Jessica GonzalezCoronavirus ECQ4Zkx detectedNormalNOT DETECTEDThe [facility] DublinComment on above:Performed By: #### SPUTGS #### [facility] [address] [place] [address] Dr. Jessica GonzalezCoronavirus QS32Mzx detectedNormalNOT DETECTEDThe [facility] DublinComment on above:Performed By: #### SPUTGS #### [facility] [address] [place] [address] Dr. Jessica GonzalezCoronavirus VW85Pjd detectedNormalNOT DETECTEDThe [facility] DublinComment on above:Performed By: #### SPUTGS #### [facility] [address] [place] [address] Dr. Jessica Berg H1 2009Not detectedNormalNOT DETECTEDThe [facility] DublinComment on above:Performed By: #### SPUTGS #### [facility] [address] [address] [address] Jessica [place] H3Not detectedNormalNOT DETECTEDThe [facility] Comment on above:Performed By: #### SPUTGS #### [facility] [address] [address] [address] Jessica Powell BNot detectedNormalNOT DETECTEDThe [facility] Comment on above:Performed By: #### SPUTGS #### [facility] [address] [address] [address] Jessica CarrilloneumovirusNot detectedNormalNOT DETECTEDThe [facility]Com[facility] on above:Performed By: #### SPUTGS #### [facility] [address] [address] [address] Jessica Garcia. PneumoniaeNot detectedNormalNOT DETECTEDThe [facility] on above:Performed By: #### SPUTGS #### [facility] [address] [address] [address] Jessica Renteria 1Not detectedNormalNOT DETECTEDThe [facility] on above:Performed By: #### SPUTGS #### [facility] [address] [address] [address] Jessica Renteria 2Not detectedNormalNOT DETECTEDThe [facility] on above:Performed By: #### SPUTGS #### [facility] [address] [address] [address] Jessica Renteria 3Not detectedNormalNOT DETECTEDThe [facility] on above:Performed By: #### SPUTGS #### [facility] [address] [address] [address] Jessica Renteria 4Not detectedNormalNOT DETECTEDThe [facility] on above:Performed By: #### SPUTGS #### [facility] [address] [place] [address] Dr. Jessica Griffin/EnterovirusNot detectedNormalNOT DETECTEDThe [facility] DublinComment on above:Performed By: #### SPUTGS #### [facility] [address] [place] [address] Dr. Jessica Watson Header 1RESPIRATORY PANEL: [facility]USESMercy [facility] Comment on above:Performed By: #### SPUTGS #### [facility] [address] [place] [address] Dr. Jessica Watson Header 2RESPIRATORY PANEL: BACTERIANoUC Medical CenterComment on above:Performed By: #### SPUTGS #### [facility] [address] [place] [address] Dr. Jessica Traylor detectedNormalNOT DETECTEDThe [facility] DublinComment on above:Performed By: #### SPUTSALIMA #### [facility] [address] [place] [address] Dr. Jessica Momin-CoV-2 (COVID-19) RNA MASON+probe Ql (Unsp spec)Not detected NormalNOT DETECTEDThe [facility] DublinComment on above:Performed By: #### SPUTSALIMA #### [facility] [address] [place] [address] Dr. Jessica Dowling W MANUAL DIFFon [id number] LYMPH #NormalGenesis HospitalComforest health medical center on above:Performed By: #### NOEMÍTBH #### [facility] [address] [place] [address] Dr. Jessica ChouYPICAL LYMPH %NormalThe [facility] DublinComment on above: Performed By: #### NOEMÍTBH #### [facility] [address] [place] [address] Dr. Jessica Zaidi #1.2 103/ulCritically high0.0-0.3TGen[facility] Hospital Comment on above:Performed By: #### NOEMÍTBH #### [facility] [address] [place] [address] Dr. Jessica Zaidi %7 %Critically high0-5The [facility] DublinComment on above: Performed By: #### CVDTBH #### [facility] [address] [place] [address] Dr. Jessica Jaime #0.00 103/ulNormal0.00-0.10The [facility] HospitalComment on above:Performed By: #### CVDTBH #### [facility] [address] [place] [address] Dr. Jessica Jaime %0.0 %Critically low0.2-2.0The [facility] HospitalComment on above:Performed By: #### CVDTBH #### [facility] [address] [place] [address] Dr. Jessica Sellers #NormalThe [facility] HospitalComment on above:Performed By: #### CVDTBH #### [facility] [address] [place] [address] Dr. Jessica Sellers %NormalThe [facility] HospitalComment on above:Performed By: #### CVDTBH #### [facility] [address] [place] [address] Dr. Jessica GonzalezCORRECTED WBCNormal4.0-11.0The [facility] DublinComment on above: Performed By: #### CVDTBH #### [facility] [address] [place] [address] Dr. Jessica Chowdhury #0.00 103/ulNormal0.00-0.70The [facility] DublinComment on above:Performed By: #### CVDTBH #### [facility] [address] [place] [address] Dr. Jessica Chowdhury%0.0 %Critically low0.9-7.0The [facility] HospitalComment on above:Performed By: #### CVDTBH #### [facility] [address] [place] [address] Dr. Jessica GonzalezHCT37.1 %Mbfzfm10.0-48.0The [facility] DublinComment on above: Performed By: #### CVDTBH #### [facility] [address] [place] [address] Dr. Jessica GonzalezHGB12.3 g/reRufgmc84.0-16.0The [facility] DublinComment on above: Performed By: #### CVDTBH #### [facility] [address] [place] [address] Dr. Jessica Rodriguez #1.17 103/ulCritically low1.20-3.80The [facility] Comment on above:Performed By: #### CVDTBH #### [facility] [address] [address] [address] Jessica Rodriguez%7.0 %Critically low20.5-60.0The [facility] DublinComment on above:Performed By: #### CVDTBH #### [facility] [address] [place] [address] Dr. Jessica MeadH33.2 qlBuvscg06.7-34.0The [facility] DublinComment on above: Performed By: #### CVDTBH #### [facility] [address] [place] [address] Dr. Jessica MeadHC33.2 g/ufRfyali56.9-35.2The [facility] DublinComment on above:Performed By: #### CVDTBH #### [facility] [address] [place] [address] Dr. Jessica MeadV100.3 fLCritically high81.0-99.0The [facility] DublinComment on above:Performed By: #### CVDTBH #### [facility] [address] [place] [address] Dr. Jessica IbrahimOCYTE #NormalThe [facility] DublinComment on above: Performed By: #### CVDTBH #### [facility] [address] [place] [address] Dr. Jessica IbrahimOCYTE %NormalThe [facility] DublinComment on above: Performed By: #### CVDTBH #### [facility] [address] [place] [address] Dr. Jessica Downing#0.67 103/ulNormal0.30-0.80The [facility] DublinComment on above:Performed By: #### CVDTBH #### [facility] [address] [address] [address] Jessica Downing%4.0 %Normal1.7-12.0The [facility] DublinComment on above: Performed By: #### CVDTBH #### [facility] [address] [place] [address] Dr. Jessica GonzalezMPV9.5 fLNormal9.5-13.5The [facility] DublinComment on above: Performed By: #### CVDTBH #### [facility] [address] [place] [address] Dr. Jessica De AndaOCYTE #NormalThe [facility] DublinComment on above:Performed By: #### CVDTBH #### [facility] [address] [place] [address] Dr. Jessica De AndaOCYTE %NormalThe [facility] DublinComment on above:Performed By: #### CVDTBH #### [facility] [address] [place] [address] Dr. Jessica GonzalezNRBCNormalThe [facility] DublinComment on above:Performed By: #### CVDTBH #### [facility] [address] [place] [address] Dr. Jessica SahuT206 103/yiUpcccy538-975Sgs [facility] DublinComment on above: Performed By: #### CVDTBH #### [facility] [address] [place] [address] Dr. Jessica GonzalezRBC3.70 106/ulCritically low4.20-5.40The [facility] DublinComment on above:Performed By: #### CVDTBH #### [facility] [address] [place] [address] Dr. Jessica GonzalezRDW12.4 %Lnojdu44.0-15.0The [facility] DublinComment on above: Performed By: #### CVDTBH #### [facility] [address] [place] [address] Dr. Jessica Raygoza #13.69 103/ulCritically high1.40-6.50[facility] Comment on above:Performed By: #### CVDTBH #### [facility] [address] [place] [address] Dr. Jessica Raygoza %82.0 %Critically high43.0-75.0The [facility] DublinComment on above:Performed By: #### CVDTBH #### [facility] [address] [place] [address] Dr. Jessica GonzalezWBC16.7 103/ulCritically high4.0-11.0The [facility] DublinComment on above:Performed By: #### CVDTBH #### [facility] [address] [place] [address] Dr. Jessica LucasF CHEM 8 (BAS METB)on [id number] gap [Moles/Vol]14.4 mmol/LNormalThe [facility] DublinComment on above:Performed By: #### SPUTGS #### [facility] [address] [place] [address] Dr. Jessica GonzalezCalcium [Mass/Vol]9.8 mg/dLNormal8.4-10.2[facility] Comment on above:Performed By: #### SPUTGS #### [facility] [address] [place] [address] Dr. Jessica GonzalezChloride [Moles/Vol]100 mmol/BDrfxah56-148ZktGenesis Hospital Comment on above:Performed By: #### SPUTGS #### [facility] [address] [place] [address] Dr. Jessica GonzalezCO2 [Moles/Vol]25.7 mmol/RMagtpg46.0-30.0[facility] Comment on above:Performed By: #### SPUTGS #### [facility] [address] [place] [address] Dr. Jessica GonzalezCreatinine [Mass/Vol]0.87 mg/dLNormal0.52-1.04The [facility] DublinComment on above:Performed By: #### SPUTGS #### [facility] [address] [place] [address] Dr. Jessica GaviriaGFR-AF AFGHAN>60Normal>=60The [facility] DublinComment on above:Performed By: #### SPUTGS #### [facility] [address] [place] [address] Dr. Jessica GaviriaGFR-NON AF AFGHAN>60Normal>=60The [facility] DublinComment on above:Performed By: #### SPUTGS #### [facility] [address] [place] [address] Dr. Jessica GonzalezGlucose [Mass/Vol]194 mg/dLCritically wvbx62-593Znm [facility] DublinComment on above:Performed By: #### SPUTGS #### [facility] [address] [place] [address] Dr. Jessica GonzalezPotassium [Moles/Vol]3.1 mmol/LCritically low3.4-5.0[facility] HospitalComment on above:Performed By: #### SPUTGS #### [facility] [address] [place] [address] Dr. Jessica GonzalezSodium [Moles/Vol]137 mmol/CFplyoy154-959JnuGenesis Hospital Comment on above:Performed By: #### SPUTGS #### [facility] [address] [place] [address] Dr. Jessica GonzalezUrea nitrogen [Mass/Vol]17.0 mg/dLNormal7.0-17.0[facility] [facility] on above:Performed By: #### SPUTGS #### [facility] [address] [place] [address] Dr. Jessica GonzalezUrea nitrogen/Creatinine [Mass ratio]19.5 mg/mgNoUC Medical CenterComforest health medical center on above:Performed By: #### SPUTGS #### [facility] [address] [place] [address] Dr. Jessica PorterUTUM GRAM STAINon [id number]f[address] [place] [address] Comment on above:Performed By: #### SPUTGS #### [facility] [address] [place] [address] Dr. Jessica PughPHTHEROIDSMercy Health Defiance HospitalComment on above:Performed By: #### SPUTGS #### [facility] [address] [address] [address] Lopez ChangEPITHELIALS<25Mer[facility] Defiance HospitalComment on above: Performed By: #### SPUTGS #### [facility] [address] [place] [address] Dr. Jessica GonzalezFUNGAL ELEMENTSMercy Health Defiance HospitalComment on above: Performed By: #### SPUTGS #### [facility] [address] [address] [address] Jessica Leslie NEG BACILLIMercy Health Defiance HospitalComment on above: Performed By: #### SPUTGS #### [facility] [address] [place] [address] Dr. Jessica Leslie NEG DIPPLOCOCCIMercy Health Defiance HospitalComment on above: Performed By: #### SPUTGS #### [facility] [address] [address] [address] Jessica Leslie POS BACILLIRARENormalGenesis HospitalComment on above: Performed By: #### SPUTGS #### [facility] [address] [address] [address] Jessica Leslie POSITIVE COCCIFEWMercy Health Defiance HospitalComment on above:Performed By: #### SPUTGS #### [facility] [address] [place] [address] Dr. Jessica Barrow (Bld) [#/Vol]10*3/uLMercy Health Defiance HospitalComment on above:Performed By: #### SPUTGS #### [facility] [address] [place] [address] Dr. Jessica GonzalezXR CHEST 2 Von [id number] CHEST 2 VEXAM: XR CHEST 2 V [...] Electronically authenticated by: CALI BRITO Date: 2021-06-08 06:56[facility] AUTO DIFFon 07-53-9538LOFJ #0.0 103/ulNormal0.0-0.1The [facility] DublinComment on above:Performed By: #### CBC #### [facility] [address] [place] [address] Dr. Jessica GonzalezBasophils/100 WBC (Bld)0.3 %Normal0.2-2.0The [facility] Comment on above:Performed By: #### CBC #### [facility] [address] [place] [address] Dr. Jessica Golden #0.1 103/ulNormal0.0-0.7The [facility] DublinComment on above: Performed By: #### CBC #### [facility] [address] [address] [address] Jessica Gaviriaosinophils/100 WBC (Bld)0.5 %Critically low0.9-7.0The [facility] DublinComment on above:Performed By: #### CBC #### [facility] [address] [place] [address] Dr. Jessica Gaviriarythrocyte distribution width (RBC) [Ratio]12.4 %Aelzcs60.0-15.0 The [facility] DublinComment on above:Performed By: #### CBC #### [facility] [address] [place] [address] Dr. Jessica GonzalezHematocrit (Bld) [Volume fraction]40.5 %Owdqzr38.0-48.0The [facility] DublinComment on above:Performed By: #### CBC #### [facility] [address] [place] [address] Dr. Jessica GonzalezHemoglobin (Bld) [Mass/Vol]14.0 g/kIAwfjfc11.0-16.0The [facility] HospitalComment on above:Performed By: #### CBC #### [facility] [address] [address] [address] Jessica Davidson #0.26 10e3/ulCritically high0.00-0.03The [facility] Comment on above:Performed By: #### CBC #### [facility] [address] [address] [address] Jessica Davidson %1.7 %Critically high0.0-0.5The [facility] DublinComment on above:Performed By: #### CBC #### [facility] [address] [address] [address] Jessica Bonds #0.7 103/ulCritically low1.2-3.8The [facility] Comment on above:Performed By: #### CBC #### [facility] [address] [place] [address] Dr. Jessica Galvanhocytes/100 WBC (Bld)4.6 %Critically low20.5-60.0The [facility] DublinComment on above:Performed By: #### CBC #### [facility] [address] [place] [address] Dr. Jessica España DIFF REQNONormalThe [facility] DublinComment on above: Performed By: #### CBC #### [facility] [address] [address] [address] Jessica Mead (RBC) [Entitic mass]34.2 pgCritically high26.7-34.0The [facility] DublinComment on above:Performed By: #### CBC #### [facility] [address] [place] [address] Dr. Jessica Mead (RBC) [Mass/Vol]34.6 g/hTOxoxsx16.9-35.2The [facility] DublinComment on above:Performed By: #### CBC #### [facility] [address] [place] [address] Dr. Jessica Mead (RBC) [Entitic vol]99.0 kIJdzwmj46.0-99.0The [facility] DublinComment on above:Performed By: #### CBC #### [facility] [address] [place] [address] Dr. Jessica Manriquez #0.4 103/ulNormal0.3-0.8The [facility] DublinComment on above:Performed By: #### CBC #### [facility] [address] [place] [address] Dr. Jessica Eastocytes/100 WBC (Bld)2.5 %Normal1.7-12.0[facility] Comment on above:Performed By: #### CBC #### [facility] [address] [place] [address] Dr. Jessica Martin #14.0 103/ulCritically high1.4-6.5The [facility] Comment on above:Performed By: #### CBC #### [facility] [address] [place] [address] Dr. Jessica Valdezutrophils/100 WBC (Bld)90.4 %Critically high43.0-75.0The [facility] DublinComment on above:Performed By: #### CBC #### [facility] [address] [place] [address] Dr. Jessica Quezada mean volume (Bld) [Entitic vol]9.6 fLNormal9.5-13.5ThWood County HospitalComment on above:Performed By: #### CBC #### [facility] [address] [place] [address] Dr. Jessica GonzalezPLT168 103/vwOhiigg602-586Evb [facility] DublinComment on above: Performed By: #### CBC #### [facility] [address] [place] [address] Dr. Jessica GonzalezRBC4.09 106/ulCritically low4.20-5.40The [facility] DublinComment on above:Performed By: #### CBC #### [facility] [address] [place] [address] Dr. Jessica GonzalezWBC15.5 103/ulCritically high4.0-11.0The [facility] DublinComment on above:Performed By: #### CBC #### [facility] [address], [place] [address] Dr. Jessica Alvarenga CHEST WO W CONon 00-12-4043ITH CHEST WO W CONCTA OF THE CHEST [...] Electronically authenticated by: MULU GARCIA Date: 2021-06-07 05:08[facility] HospitalCULTURE BLOODon 27-02-7020Qgfzdydtnlg examination of blood, cultureCulture Observations: No growth at 5 days.NormalThe [facility] DublinComment on above:Performed By: #### BMP #### [facility] [address], [place] [address] Dr. Jessica Esquiveld-19 PCR (CVDTB)on 04-17-0161ZGQD-CoV-2 (COVID-19) RNA MASON+probe Ql (Unsp spec)Not detectedNormalNOT DETECTEDThe [facility] Comment on above:Result Comment: When diagnostic testing [...] for this test is supported by the Bin Operator of Health and Human Service's declaration that [...] longer be used).Performed By: #### CVDTBH #### [facility] [address] [place] [address] Dr. Jessica GonzalezLACTATE/LACTIC ACIDon 22-06-5029Vkxwhbl [Moles/Vol]1.8 mmol/L Normal0.7-2.0The [facility] DublinComment on above:Performed By: #### CVDTBH #### [facility] [address] [place] [address] Dr. Jessica GonzalezPROF 14(COMP METB)on 89-99-6101Rjayegf [Mass/Vol]3.1 g/dL Critically low3.5-5.0The [facility] DublinComment on above:Performed By: #### CMP #### [facility] [address] [place] [address] Dr. Jessica GonzalezAlbumin/Globulin [Mass ratio]0.8 {ratio}NormalThe [facility] DublinComment on above:Performed By: #### CMP #### [facility] [address] [place] [address] Dr. Jessica Hartman [Catalytic activity/Vol]89 U/QWmmszk27-480Ylh [facility] DublinComment on above:Performed By: #### CMP #### [facility] [address] [place] [address] Dr. Jessica Asif [Catalytic activity/Vol]21 U/LNormal9-52The [facility] Comment on above:Performed By: #### CMP #### [facility] [address] [address] [address] Jessica Mandujano gap [Moles/Vol]13.2 mmol/LNormalGenesis Hospital Comment on above:Performed By: #### CMP #### [facility] [address] [address] [address] Jessica GonzalezAST [Catalytic activity/Vol]15 U/RBjhctl54-33Ssq [facility] DublinComment on above:Performed By: #### CMP #### [facility] [address] [address] [address] Jessica GonzalezBilirubin [Mass/Vol]1.2 mg/dLNormal0.2-1.3The [facility] Comment on above:Performed By: #### CMP #### [facility] [address] [place] [address] Dr. Jessica GonzalezCalcium [Mass/Vol]9.0 mg/dLNormal8.4-10.2[facility] Comment on above:Performed By: #### CMP #### [facility] [address] [place] [address] Dr. Jessica GonzalezChloride [Moles/Vol]102 mmol/AYnzdmr07-078JlsGenesis Hospital Comment on above:Performed By: #### CMP #### [facility] [address] [place] [address] Dr. Jessica GonzalezCO2 [Moles/Vol]27.4 mmol/ULpdmck07.0-30.0[facility] Comment on above:Performed By: #### CMP #### [facility] [address] [address] [address] Jessica GonzalezCreatinine [Mass/Vol]1.05 mg/dLCritically high0.52-1.04The [facility] DublinComment on above:Performed By: #### CMP #### [facility] [address] [place] [address] Dr. Jessica GaviriaGFR-AF AFGHAN>60Normal>=60The [facility] DublinComment on above:Performed By: #### CMP #### [facility] [address] [place] [address] Dr. Jessica GaviriaGFR-NON AF BMLEURFP70 mL/min/1.04a8Vxmzuiqbfj low>=60The [facility] DublinComment on above:Performed By: #### CMP #### [facility] [address] [address] [address] Jessica GnozalezGlobulin (S) [Mass/Vol]3.9 g/dLNormLicking Memorial HospitalComment on above:Performed By: #### CMP #### [facility] [address] [address] [address] Jessica GonzalezGlucose [Mass/Vol]133 mg/dLCritically yxkf94-768Eri [facility] DublinComment on above:Performed By: #### CMP #### [facility] [address] [place] [address] Dr. Jessica GonzalezPotassium [Moles/Vol]3.6 mmol/LNormal3.4-5.0The [facility] Comment on above:Performed By: #### CMP #### [facility] [address] [place] [address] Dr. Jessica GonzalezProtein [Mass/Vol]7.0 g/dLNormal6.1-8.2The [facility] Comment on above:Performed By: #### CMP #### [facility] [address] [place] [address] Dr. Jessica GonzalezSodium [Moles/Vol]139 mmol/BJbvfsa846-552Whu [facility] Comment on above:Performed By: #### CMP #### [facility] [address] [place] [address] Dr. Jessica GonzalezUrea nitrogen [Mass/Vol]14.0 mg/dLNormal7.0-17.0The [facility] DublinComment on above:Performed By: #### CMP #### [facility] [address] [place] [address] Dr. Jessica GonzalezUrea nitrogen/Creatinine [Mass ratio]13.3 mg/mgNormLicking Memorial HospitalComment on above:Performed By: #### CMP #### [facility] [address] [place] [address] Dr. Yilan ChangXR CHEST 1 Von 28-55-5512OT CHEST 1 VEXAM: XR CHEST 1 V [...] Electronically authenticated by: TERELL BENITEZ Date: 2021-06-07 02:24[facility] Vital Signs Date TimeVital SignValuePerforming YfntvnrlpQvnmsypv18-59-1379 13:44-0400Body nkvtlu277.7 cmPiter Cleary MD Work Phone: [facility]ullivanOabtxxujur27-68-4722 13:44-0400Body mass index (BMI) [Ratio]31.63 kg/m2Piter Cleary MD Work Phone: [facility]-SullivanInaugxzqzh75-38-3937 13:44-0400Body temperature 97.3 [degF]Piter Cleary MD Work Phone: [facility]-SullivanMozptsvqoz50-19-4557 13:44-0400Body akigfj85.35 kgPiter Cleary MD Work Phone: [facility]SullivanIfvdhllbss91-63-2967 13:44-0400Diastolic blood mm[Hg]Piter Cleary MD Work Phone: [facility]-SullivanKhbmnnpjdj44-84-2607 13:44-0400Heart rate78 /min Piter Cleary MD Work Phone: [facility]-SullivanLiukjvxqwm23-29-1517 13:44-0400Respiratory rate20 /minPiter Cleary MD Work Phone: [facility]-SullivanJyqsliuyqn46-45-9400 13:44-6237JzH5% (BldA) [Mass fraction]97 %Piter Cleary MD Work Phone: [facility]-SullivanXjoenbfowu55-81-8741 13:44-0400Systolic blood nrvedidf173 mm[Hg]Piter Cleary MD Work Phone: [facility]SullivanHhabbwtnzo51-19-1876 11:37-0400Body ranxoi879.7 cmPiter Cleary MD Work Phone: [facility]-SullivanLjwqilsrvf70-43-5606 11:37-0400Body mass index (BMI) [Ratio]32.39 kg/m2Piter Cleary MD Work Phone: [facility]-SullivanQzsusoasrg02-04-3751 11:37-0400Body temperature 97.11 [degF]Piter Cleary MD Work Phone: [facility]-SullivanUcyzrsrbhe54-09-5066 11:37-0400Body .62 kgPiter Cleary MD Work Phone: [facility]-SullivanGrqqvysmid62-09-3400 11:37-0400Diastolic blood qhlvnvec20 mm[Hg]Piter Cleary MD Work Phone: [facility]-SullivanReyetihuew37-87-6178 11:37-0400Heart rate61 /min Piter Cleary MD Work Phone: [facility]SullivanAikgjljpox72-79-1699 11:37-0400Respiratory rate20 /minPiter Cleary MD Work Phone: [facility]-SullivanDcveeatopa73-11-3304 11:37-0590ZvO6% (BldA) [Mass fraction]97 %Piter Cleary MD Work Phone: [facility]-SullivanDqxtceynjg38-71-1197 11:37-0400Systolic blood vvfhcgam034 mm[Hg]Piter Cleary MD Work Phone: [facility]-SullivanVzhcpaxans25-82-2558 09:22-0500Body .7 cmPiter Cleary MD Work Phone: [facility]SullivanWggsjgptjn98-64-1601 09:22-0500Body mass index (BMI) [Ratio]32.08 kg/m2Piter Cleary MD Work Phone: [facility]-SullivanVrcwfblnzg79-22-4798 09:22-0500Body temperature 97.11 [degF]Piter Cleary MD Work Phone: [facility]SullivanKsqkccxczi99-33-2092 09:22-0500Body juuxlw96.71 kgPiter Cleary MD Work Phone: [facility]SullivanOdjntubwqq19-12-4314 09:22-0500Diastolic blood prrxztab89 mm[Hg]Piter Cleary MD Work Phone: [facility]-SullivanSgedtlkure15-64-5478 09:22-0500Heart rate91 /min Piter Cleary MD Work Phone: [facility]-SullivanEdpokcrire76-08-5432 09:22-0500Respiratory rate20 /minPiter Cleary MD Work Phone: [facility]-SullivanHafbzmetpf31-75-4419 09:22-5496PwX4% (BldA) [Mass fraction]97 %Piter Cleary MD Work Phone: [facility]-SullivanXyepwihdtc37-38-0186 09:22-0500Systolic blood mm[Hg]Piter Cleary MD Work Phone: [facility]-SullivanXuwoemvqqh93-04-5667 10:42-0400Body .72 [facility] 10:42-0400Body mass index (BMI) [Ratio]29.8 kg/u4QgyeiqyzeBerger Hospital08-04-2024 10:42-0400Body vmcbhgtloza73.2 [degF][facility]08-04-2024 10:42-0400Body gplabm43.07 kgBerger Hospital08-04-2024 10:42-0400Diastolic blood lmgerwdd19 mm[Hg][facility]08-04-2024 10:42-0400 Heart rate75 /[facility]08-04-2024 10:42-0400 Respiratory rate16 /[facility]08-04-2024 10:42-0400 SaO2% (BldA) [Mass fraction]96 %[facility]08-04-2024 10:42-0400Systolic blood yxtsygqt691 mm[Hg][facility] 06-03-2023 14:45-0500Body kaffqc508.72 cmAdenny Shields Other [employer] Other 12-31-2023 14:45-0500Body mass index (BMI) [Ratio] 31.17 kg/c1ZcpchErma Shields Other [address] Other 12-31-2023 14:45-0500Body vgfyhiuxwki28.1 [degF]Erma Shields Other [facility] [employer] Other 12-31-2023 14:45-0500Body jjzkuo82.99 kgErma Shields Other [address] Other 12-31-2023 14:45-0500Respiratory rate18 /minErma Cornelius Other [facility] [employer] Other 12-31-2023 14:45-7682DiV4% (BldA) [Mass fraction]95 % Erma Shields Other [employer] Other Encounters Encounter DateEncounter TypeCare ProviderFacilityStart: 12-30-2024 End: 17-56-1962Vuuojx flowsAngelique Cleary MD Work Phone: [facility] CWM FMStart: 12-30-2024 End: 40-60-1963Gwmwrt flowsheetPiter Cleary MD Work Phone: [facility] CWM FMStart: 12-30-2024 End: 20-77-7373Yviewq outpatient visit 15 minutesPiter Cleary MD Work Phone: [facility] CW FMComment on above:Lightheadedness (Primary Dx); Seasonal allergic rhinitis due to pollenStart: 12-30-2024 End: 57-70-0686vzxkxfuaqqPQLL NADERERNot AvailableStart: 11-07-2024 End: 24-75-0807Enhlpswhz Result EncounterPiter Cleary MD Work Phone: noms External Department UnsolicitedStart: 11-07-2024 End: 32-66-9513Tyvdrvzhk Result EncounterPiter Cleary MD Work Phone: [facility] External Department UnsolicitedStart: 11-03-2024 End: 05-22-6633Fpdurd flowsAngelique Cleary MD Work Phone: [facility] CWM FMStart: 11-03-2024 End: 27-00-0082Jzgjyq Jackson Cleary MD Work Phone: [facility] CWM FMStart: 11-03-2024 End: 86-56-4190Vqyrwao encounter procedurePiter Cleary MD Work Phone: [facility] Work Phone: Start: 11-03-2024 End: 10-16-4684Vymkjf follow up visit related to original Nickie Cleary MD Work Phone: [facility] FMComment on above:Medicare annual wellness visit, subsequent (Primary Dx); Benign hypertension (CMS/HCC); Class 1 obesity due to excess calories with serious comorbidity and body mass index (BMI) of 32.0 to 32.9 in adult; Chronic obstructive pulmonary disease, unspecified COPD type (CMS/HCC); Dyslipidemia (CMS/HCC); Encounter for long-term current use of medication; Pre-diabetesStart: 11-03-2024 End: 47-22-5518umoxcayjifLWEF NADERERNot AvailableStart: 07-04-2024 End: 76-14-5997Coulzzzaa Result EncounterGeneric External Data ProviderNOMS External Department UnsolicitedStart: 07-04-2024 End: 51-38-4826Ejkzdvbbn Result EncounterGeneric External Data ProviderNOMS External Department UnsolicitedStart: 06-05-2024 End: 05-49-1097Hkgoqj Jackson Cleary MD Work Phone: [facility] CWM FMStart: 06-05-2024 End: 93-67-6599Djmdou flowsheetPiter Cleary MD Work Phone: [facility] CWM FMStart: 06-05-2024 End: 87-29-3932Awthnl outpatient visit 25 minutesPiter Cleary MD Work Phone: [facility] CWM FMComment on above:Benign hypertension (CMS/HCC) (Primary Dx); SHAN (generalized anxiety disorder) (CMS/HCC); Chronic obstructive pulmonary disease, unspecified COPD type (CMS/HCC); Lower extremity edema; Gastroesophageal reflux disease without esophagitisStart: 06-05-2024 End: 29-85-2856ngzvfvxrjdPCFK NADERERNot AvailableStart: 02-05-2024 End: 93-52-3828Mgofse flowsheetKylie S [place] [employer] Work Phone: noms FNR BHStart: 02-05-2024 End: 41-98-8929Muhebh flowsheetKylie S Stella [employer] Work Phone: [facility] FNR BHStart: 02-05-2024 End: 61-59-2027myclbwriraRAIIS S LAUGHLINNot AvailableStart: 01-17-2024 End: 31-62-9059hqtdgcmozfFFDPD S LAUGHLINNot AvailableStart: 01-10-2024 End: 73-17-6842dbgmwigwaiYQWLY S LAUGHLINNot AvailableStart: 01-06-2024 End: 39-91-7866iqsbzphdkgNfuhtqhviGenesis Hospital Work Phone: Start: 01-06-2024 End: 04-07-4271Yrwuoyc encounter procedureNovant [facility] Work Phone: Start: 06-03-2023 End: 57-40-4221rlfkofwvuuNyfgv Keller Other Viv[employer] Other Start: 08-91-2495Bgeoun outpatient new 30 minutesAmber KellerFPG Urgent Care ClydeStart: 06-07-2021 End: 73-59-2935Gtefwwcvor and management of inpatientDR REAGAN MACDONALDFacility:H1 Start: 05-16-2021 End: 04-56-1851tszucilszlZI ASTRID Vance ROBINFacility:H1 Procedures DateProcedureProcedure DetailPerforming ClinicianStart: 34-31-7532UHT CBC WITH AUTO DIFFMarc Madiha SPENCER Work Phone: Start: 94-59-4914PE LUNG SCREENING LOW DOSEGeneric External Data ProviderStart: 02-05-2024 End: 51-06-2681Kntbolyekhwok w/patient 60 minutesGAD (generalized anxiety disorder) ([facility]/HCC)Magui BOWDEN Work Phone: Comment on above:SHAN (generalized anxiety disorder) ([facility]) Plan of Treatment DateCare ActivityDetailAuthorStart: 06-02-2026Medicare Annual Wellness (AWV) Medicare Annual Wellness (AWV)[facility] HealthcareStart: 27-98-5427Pprncywwl for malignant neoplasm of colonNOMS HealthcareStart: 05-07-2025 End: 93-99-1027Anddmwl encounter givosqait53/04/2025 9:00 AM EST Office Visit [facility] [address] [place] [address] Piter Cleary MD [address] [place] [address] [facility] FMStart: 03-68-8248Xgpneikym vaccinationInfluenza Vaccine (#1)[facility] HealthcareStart: 12-30-2024 End: 82-05-7807Okjwolz encounter oeqwvdqzb17/29/2025 1:45 PM EDT Office Visit [facility] [address] [place] [address] Piter Cleary MD [address] [place] [address] [facility] FMComment on above:ArrivedStart: 11-03-2024 End: 59-91-4520Kjquf metabolic 1998 panel - Serum or PlasmaBasic metabolic panel Lab Routine Benign hypertension (CMS/HCC) Expected: 11/03/2024 (Approximate), Expires: 11/03/2025[facility] HealthcareComment on above:Expected: 11/03/2024 (Approximate), Expires: 11/03/2025Start: 11-03-2024 End: 07-48-9379ETC W Auto Differential panel - BloodCBC and differential Lab Routine Encounter for long-term current use of medication Expected: 11/03/2024 (Approximate), Expires: 11/03/2025[facility] HealthcareComment on above:Expected: 11/03/2024 (Approximate), Expires: 11/03/2025Start: 11-03-2024 End: 40-56-1410Kmxkaituyq A1c/Hemoglobin.total in BloodHemoglobin A1c Lab Routine Pre-diabetes Expected: 11/03/2024 (Approximate), Expires: 11/03/2025[facility] Healthcare Work Phone: Comment on above:Expected: 11/03/2024 (Approximate), Expires: 11/03/2025Start: 11-03-2024 End: 30-87-0884Uuqojhj function 2000 panel - Serum or PlasmaHepatic function panel Lab Routine Encounter for long-term current use of medication Expected: 11/03/2024 (Approximate), Expires: 11/03/2025[facility] HealthcareComment on above: Expected: 11/03/2024 (Approximate), Expires: 11/03/2025Start: 11-03-2024 End: 57-68-8751Ptsho 1996 panel - Serum or PlasmaLipid panel Lab Routine Dyslipidemia (CMS/HCC) Expected: 11/03/2024 (Approximate), Expires: 11/03/2025 [facility] HealthcareComment on above:Expected: 11/03/2024 (Approximate), Expires: 11/03/2025Start: 11-03-2024 End: 98-67-2882Qadqxamobgw [Units/volume] in Serum or PlasmaTSH Lab Routine Class 1 obesity due to excess calories with serious comorbidity and body mass index(BMI) of 32.0 to 32.9 in adult Expected: 11/03/2024 (Approximate), Expires: 11/03/2025[facility] HealthcareComment on above:Expected: 11/03/2024 (Approximate), Expires: 11/03/2025Start: 11-03-2024 End: 82-14-2017Lahjxry encounter procedureNOMS CWM FMComment on above:Arrived Start: 05-29-2025Medicare Annual Wellness (AWV)Medicare Annual Wellness (AWV) NOM HealthcareStart: 12-99-0376Xzwbdhqvs for malignant neoplasm of breast MammogramNOMS HealthcareComment on above:Postponed from 1997 (Patient Refused)Start: 06-05-2024 End: 54-35-2469Pyvpazd encounter procedureNOMS CWM FMComment on above:Arrived Start: 02-05-2024 End: 56-48-9367Fkdjjr Work02/05/2024 8:00 AM EDT Social Work [facility] [address] [place] [address] Magui Murdock, JAIRO-S [address] [place] [address] [facility] Comment on above:ArrivedStart: 56-58-4022Pwekyieil vaccinationInfluenza Vaccine (#1)[facility] HealthcareStart: 29-70-6343Mxrbarlwgctt Vaccine: 65+ Years (1 of 2 - PCV)Pneumococcal Vaccine: 65+ Years (1 of 2 - PCV)[facility] HealthcareStart: 36-16-4871Brzvzwnkf for malignant neoplasm of colonNOIL Healthcare Immunizations Immunization DateImmunizationNotesCare XfdgpevjAkdbthpa79-96-0580Fcvvphhfcpat Conjugate PCV 20Marc Madiha SPENCER Work Phone: [facility] Ehotnkobey64-66-9625LFP, recombinant, protein subunit RSVpreF, adjuvant reconstitu, 120mcg/0.5mL, PF (Arexvy)Piter Cleary MD Work Phone: [facility]ullivanBfbdftzvbh74-33-8067mvhgfvqsg, high dose seasonal, preservative-freePiter Cleary MD Work Phone: [facility]ullivanFzwkhsvxpx39-53-8841mfkjaizqg virus vaccine, unspecified formulationPiter Cleary MD Work Phone: noH[facility] DivisionMhezzsnimo11-31-0796nkrvrplir virus vaccine, unspecified formulationMagui BOWDEN Work Phone: [facility] Payers DatePayer CategoryPayerPolicy [id number] MEDICARE ADVANTAGE ANTHEM MEDICARE ADVANTAGE [id number] 2023-Present [address] [place] [id number] 2024Medicare (Managed Care)ANTHEM MEDICARE ADVANTAGE Member Subscriber Plan / Payer (Effective 2023-) Name: Marielysue Miradna Relation to Subscriber: Self Name: Miranda Gilliland Payer ID: Not on file Group ID: [id number] Type: Not on file Address: [address] [place] [id number] [id number] .[id number] [id number] 2.16.840.1.122796.3.57[id number] 2.16.840.1.125438.3.57[id number] 2.16.840.1.686996.3.57[id number] 2.16.840.1.516094.3.57[id number] 2.16.840.1.772044.3.57[id number] Social History DateTypeDetailFacilityStart: 12-03-2023 End: 02-82-0364Fbj Assigned At BirthNotwo [facility] [employer] [place] [employer] Other Start: 60-04-2835Urduhzn smoking status NHISSmoker (finding)[facility]: 31-64-2896Dhz [facility]: 06-92-6997Qepeubw smoking status NHISEx-smokerNOMS HealthcareHistory of tobacco useCigarette SmokerNOIL HealthcareStart: 06-12-2023 End: 71-21-3674Tmsdlwydse smoked current (pack per day) - Reported0.5NOIL HealthcareStart: 58-08-6295Alv assigned at birthNot on [facility] Functional Status PwehFdgxputtipOsfuczKatalawv45-68-6698Susgsdn Health Questionnaire 2 item (PHQ- 2) [Reported][facility] Clinical Notes 05-16-2021 to 12-30-2024 Note Date & FbzlFfpwWeyrtvnn94-15-6116 History of Present illness Narrative* Piter Cleary [...] persist will stop hydrochlorothiazide. documented in this encounterMissouri [facility] Hospital-SullivanGpxpdnovxt78-19-8139 History of Present illness Narrative* Piter Cleary [...] EDTAssociated Problem(s): COPD (chronic obstructive pulmonary disease) ([facility]) Breathing stable and continue trelegy. Follow up with community relations manager. * Piter Cleary MD - 11/03/2024 12:14 [...] List Items Addressed This Visit Benign hypertension ([facility]) BP controlled and monitor PRN. Relevant Medications lisinopril-hydroCHLOROthiazide 10-12.5 MG tablet Other Relevant Orders Basic metabolic panel Dyslipidemia ([facility]) Relevant Orders Lipid panel Pre-diabetes Relevant Orders Hemoglobin A1c COPD (chronic obstructive pulmonary disease) ([facility]) Breathing stable and continue trelegy. Follow up with community relations manager. Encounter for long-term current use of medication [...] Advised not to smoke. documented in this encounterMissouri Baptist Hospital-SullivanVesylaqipf39-51-8033 History of Present illness Narrative* Piter Cleary MD - 06/05/2024 10:05 AM ESTAssociated Problem(s): Lower extremity edema Edema stable and elevate legs PRN. * Piter Cleary MD - 06/05/2024 10:05 AM ESTAssociated Problem(s): Gastroesophageal reflux disease Symptoms controlled with medication and continue. * Piter Cleary MD - 06/05/2024 10:04 AM ESTAssociated Problem(s): SHAN (generalized anxiety disorder) ([facility]) Symptoms improved with wellbutrin and continue. * Piter Cleary MD - 06/05/2024 10:04 AM ESTAssociated Problem(s): COPD (chronic obstructive pulmonary disease) (CMS/HCC) Breathing stable and continue trelegy. Refer to local community relations manager. * Piter Cleary MD - 06/05/2024 10:04 [...] stable and continue trelegy. Refer to local community relations manager. SHAN (generalized anxiety disorder) ([facility]) Symptoms improved with wellbutrin and continue. documented in this encounterMissouri Baptist Hospital-SullivanSmtvminbgn42-30-8459 Evaluation note* Encounter Date Diagnosis Assessment Notes Treatment Notes Treatment Clinical Notes May, Mild intermittent asthma with ac [place] exacerbation (ICD-10 - J45.21) Advised patient that [...] for fever/discomfort, cool mist humidifier. May use [place] as needed for cough, do not take any other OTCs while using [place]. Use Albuterol inhaler as directed. Patient to follow up with PCP in 2-3 days. Immediate eval if SOB, difficulty breathing, chest pain, dizziness, or other concerning symptoms. Patient verbalizes understanding and is agreeable to treatment plan. 31 Dec, 2023Acute cough (ICD-10 - R05.1) [employer] Other 12-13-2021 NotePROCEDURE: XR GI UPPER AIR [...] Electronically authenticated by: ASTRID KELLY Date: 2021-05-16 09:51[facility]12-13-2021 NotePROCEDURE: XR GI UPPER AIR KUB [...] Electronically authenticated by: ASTRID KELLY Date: 2021-05-16 09:51[facility] Diagnosis Onset Date Resolution Status Acute conjunctivitis, bilateral acute [facility] Work Phone: Evaluation note* Diagnosis SHAN (generalized anxiety disorder) ([facility]) Generalized anxiety disorder documented in this encounter [facility] HealthcareEvaluation note* Diagnosis RSV (respiratory syncytial virus pneumonia)- Primary Pneumonia due to respiratory syncytial virus COPD with acute exacerbation ([facility]) Benign hypertension ([facility]) Essential hypertension, benign Gastroesophageal reflux disease without esophagitis Esophageal reflux Chronic obstructive pulmonary disease, unspecified COPD type ([facility]) Benign hypertension ([facility])- Primary Essential hypertension, benign Lower extremity edema Edema Chronic obstructive pulmonary disease, unspecified COPD type ([facility]) Gastroesophageal reflux disease without esophagitis Esophageal reflux SHAN (generalized anxiety disorder) ([facility]) Generalized anxiety disorder Dyslipidemia ([facility]) Other and unspecified hyperlipidemia Encounter for long-term current use of medication Pre-diabetes Other abnormal glucose Obesity (BMI 30-39.9) Dermatitis Contact dermatitis and other eczema, due to unspecified cause Benign hypertension ([facility])- Primary Essential hypertension, benign SHAN (generalized anxiety disorder) ([facility]) Generalized anxiety disorder Chronic obstructive pulmonary disease, unspecified COPD type ([facility]) Lower extremity edema Edema Gastroesophageal reflux disease without esophagitis Esophageal reflux documented in this encounter [facility] HealthcareEvaluation note* Diagnosis RSV (respiratory syncytial virus pneumonia)- Primary Pneumonia due to respiratory syncytial virus COPD with acute exacerbation ([facility]) Benign hypertension ([facility]) Essential hypertension, benign Gastroesophageal reflux disease without esophagitis Esophageal reflux Chronic obstructive pulmonary disease, unspecified COPD type ([facility]) Benign hypertension ([facility])- Primary Essential hypertension, benign Lower extremity edema Edema Chronic obstructive pulmonary disease, unspecified COPD type ([facility]) Gastroesophageal reflux disease without esophagitis Esophageal reflux SHAN (generalized anxiety disorder) ([facility]) Generalized anxiety disorder Dyslipidemia ([facility]) Other and unspecified hyperlipidemia Encounter for long-term current use of medication Pre-diabetes Other abnormal glucose Obesity (BMI 30-39.9) Dermatitis Contact dermatitis and other eczema, due to unspecified cause Benign hypertension ([facility])- Primary Essential hypertension, benign SHAN (generalized anxiety disorder) ([facility]) Generalized anxiety disorder Chronic obstructive pulmonary disease, unspecified COPD type ([facility]) Lower extremity edema Edema Gastroesophageal reflux disease without esophagitis Esophageal reflux Medicare annual wellness visit, subsequent- Primary Benign hypertension ([facility]) Essential hypertension, benign Class 1 obesity due to excess calories with serious comorbidity and body mass index (BMI) of 32.0 to 32.9 in adult Chronic obstructive pulmonary disease, unspecified COPD type ([facility]) Dyslipidemia ([facility]) Other and unspecified hyperlipidemia Encounter for long-term current use of medication Pre-diabetes Other abnormal glucose documented in this encounter [facility] HealthcareEvaluation note* Diagnosis RSV (respiratory syncytial virus [...] Historyvein ablasion right legHospitalization Historycellulitis Hospitalization History [employer] Other Summary Purpose Family History No Family History Records Found Relationship Condition Age at Onset Recorded Date/T anali father Unknown Advance Directives No Advanced Directives Records Found Advance Directive Response Recorded Date/ Time Advance Directives No January 05 024 9:43am Chief Complaint and Reason for Visit Chief Complaint Poss [place] eye Reason for Visit Acute conjunctivitis , bilateral Additional Source Comments INFORMATION SOURCE (unrecogn ized section and content) DATE CREATED AUTHOR 06/23/2021 [facility] DATE CREATED AUTHOR AUTHOR'S ORGANIZ ATION 01/01/2025 [facility] EPIC REASON FOR VISIT (unrecogniz [...] Piter Cleary MD [address] [place] [address] PCP - GeneralFamily Medicine12/03/23Team MemberRelationshipSpecialtyStart DateEnd Date Piter Cleary MD [address] [place] [address] PCP - GeneralFamily Medicine12/03/23Team MemberRelationshipSpecialtyStart DateEnd Date Piter Cleary MD [address] [place] [address] PCP - GeneralFamily Medicine12/03/23Team MemberRelationshipSpecialtyStart DateEnd Date Piter Cleary MD [address] [place] [address] PCP - GeneralFamily Medicine12/03/23Team MemberRelationshipSpecialtyStart DateEnd Date Piter Cleary MD [address] [place] [address] PCP - GeneralFamily Medicine12/03/23Team MemberRelationshipSpecialtyStart DateEnd Date Piter Cleary MD [address] [place] [address] PCP - [facility]12/03/23 Piter Cleary MD [address] [place] [address] PCP - [place]06/04/24Team MemberRelationshipSpecialtyStart DateEnd Date Piter Cleary MD [address] [place] [address] PCP - [facility]12/03/23 Piter Cleary MD [address] [place] [address] PCP - [place]06/04/24Team MemberRelationshipSpecialtyStart DateEnd Date Piter Cleary MD [address] [place] [address] PCP - [facility]12/03/23 Piter Cleary MD [address] [place] [address] PCP - [place]06/04/24Team MemberRelationshipSpecialtyStart DateEnd Date Piter Cleary MD [address] [place] [address] PCP - [facility]12/03/23 Piter Cleary MD [address] [place] [address] PCP - [facility] YATES06/04/24Team MemberRelationshipSpecialtyStart DateEnd Date Piter Cleary MD [address] [place] [address] [facility] Piter Cleary MD [address] [place] [address] PCP - Gregg YATES06/04/24 Goals (unrecognized [...] ON THE PRIMARY CLINICAL RECORDS. [facility]. provides no warranty or guarantee of the accuracy or completeness of information in this document.
[2025-04-04] VITALS (21 sets, daily range): BP systolic 132–161; BP diastolic 79–87; PULSE 78–110; TEMP 36.4–36.8; O2SAT 93–96
[2025-04-04] MEDS: AMLODIPINE BESYLATE 5 MG TABLET 2.5 MG PO ×2 (01:34→09:20)
[2025-04-04] MEDS: DOXYCYCLINE MONOHYDRATE 100 MG CAPSULE PO ×3 (01:34→21:47)
[2025-04-04] MEDS: ENOXAPARIN SODIUM 40 MG/0.4 ML SYRINGE SUBQ ×2 (01:35→09:21)
[2025-04-04] MEDS: IPRATROPIUM/ALBUTEROL SULFATE 3 ML AMPUL.NEB IH ×3 (05:16→21:53)
[2025-04-04 06:51] LABS: Hematocrit 44.7 % (36.0-48.0); Hemoglobin 15.0 g/dL (12.0-16.0); Immature Granulocytes Abs Auto 0.09 10^3/uL (0.00-0.03); Immature Granulocytes Pct Auto 0.6 % (0.0-0.5); Lymphocytes Absolute Auto 1.5 10^3/uL (1.2-3.8); Mean Corpuscular HGB Conc 33.6 g/dL (29.9-35.2); Mean Corpuscular Hemoglobin 33.6 pg (26.7-34.0); Mean Corpuscular Volume 100.0 fL (81.0-99.0); Platelet Count 198 10^3/uL (150-450); Red Blood Count 4.47 10^6/uL (4.20-5.40); White Blood Count 14.9 10^3/uL (4.0-11.0)
[2025-04-04 07:11] LABS: Alanine Aminotransferase 25 U/L (14-59); Albumin Globulin Ratio 1.3; Albumin Level 4.0 g/dL (3.4-5.0); Alkaline Phosphatase 91 U/L (46-116); Anion Gap 12.8; Aspartate Amino Transferase 21 U/L (15-37); Blood Urea Nitrogen 19.0 mg/dL (7.0-18.0); Calcium 9.5 mg/dL (8.5-10.1); Carbon Dioxide 30.5 mmol/L (21.0-32.0); Chloride 101 mmol/L (98-107); Estimated GFR (African America >60 (>=60 mL/min/1.73m^2); Estimated GFR (Non-African Ame >60 (>=60 mL/min/1.73m^2); Globulin 3.2 g/dL; Glucose 125 mg/dL (74-106); Magnesium 2.3 mg/dL (1.8-2.4); Potassium 4.3 mmol/L (3.5-5.1); Sodium 140 mmol/L (136-145); Total Protein 7.2 g/dL (6.4-8.2)
--- NOTE | 2025-04-04 08:00 | ECG_ITS ---
[facility] Test Date: 2025-04-04 Pat Name: MIRANDA GILLILAND Department: Room: [facility] Gender: Female Forensic Engineer: : [id number] Requested By: [id number] Order Number: [id number] Reading MD: KASSI AREVALO M.D. Measurements Intervals Alvin Rate: 80 P: 72 NM: 157 QRS: 66 QRSD: 93 T: 74 QT: 365 QTc: 422 Interpretive Statements SINUS RHYTHM POSSIBLE LEFT ATRIAL ENLARGEMENT [-0.1mV P WAVE IN V1/V2] Borderline ECG Compared to ECG 04/03/2025 15:58:09 Sinus tachycardia no longer present Electronically Signed On 04-04-2025 8:44:08 EDT by KASSI AREVALO M.D.
[2025-04-04] MEDS: LISINOPRIL 10 MG TABLET PO (09:20)
[2025-04-04] MEDS: HYDROCHLOROTHIAZIDE 25 MG TABLET 12.5 MG PO (09:20)
[2025-04-04] MEDS: MAGNESIUM OXIDE 400 MG TABLET PO (09:20)
[2025-04-04] MEDS: METHYLPREDNISOLONE SOD SUCC PF 40 MG/ML VIAL IVP (09:21)
--- NOTE | 2025-04-04 13:40 | PM.HP ---
HPI H&P: HPI History of Present Illness Chief complaint: Copdexacerbation hypoxemia Narrative: This is a 69-year-old woman who came to the emergency room twice now with an exacerbation of COPD. On the first ER visit she was felt to be well enough to go home. She says that she picked up her prescriptions. And a few hours later she had such increased work of breathing and tightness in her chest that she came back to the emergency room. She reports that she had some asthma when she was younger. Around the time there was COVID she had to be hospitalized in [place] in 2019 for what sounds like an unusual lung lesion (that was not related to COVID) and they watch this for a while and then released her. She also had RSV a few years ago. She is to [facility] with Dr. Carreno. Last weekend she was walking around at a tourist attraction in [place] and can walk a long distance without any restriction in her breathing or shortness of breath. Then on Sunday she was cleaning out her gutters and began feeling some postnasal drip and began feeling some shortness of breath. And then her shortness of breath got worse over the last few days. There was 1 day where she had some light loose bowel movements but no soraida diarrhea. She has not had soraida fevers or chills or arthralgias or myalgias. She says that she is vaccinated for everything including RSV and the flu this year and pneumonia and COVID. She was admitted through the emergency room yesterday on April 03. This afternoon on April 04 she says that she still is not feeling much relief. She has a very harsh cough but can barely expectorate any mucus. She has increased work of breathing just walking through the room to sit on the toilet. She has to take a break for 5 minutes before she can ambulate some more again. She is relying on supplemental oxygen. She denies any nausea or vomiting. She denies any diarrhea or constipation. Quality: Safe Use of Opioids Is the patient undergoing opioid medication assisted treatment that includes methadone, buprenorphine, and/or naltrexone: No Opioid HPI Opioid Management Most Recent Pain and Opioid Data: Last Pain Scale 0 Today, 09:21 Last Pain Assessment Today, 13:09 Last ORT Total Score 0 04/03/25, 21:04 Last ORT Risk Category Low Risk 04/03/25, 21:04 Review of Systems ROS Narrative 10 point review of systems is negative except as mentioned elsewhere in this documentation. 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, unspecified ear (ICD-10) Pulmonary embolism ?I26.99 - Other pulmonary embolism without acute cor pulmonale (ICD-10) Surgical History H/O tubal ligation ?Z98.51 - Tubal ligation status (ICD-10) History of tonsillectomy ?Z90.89 - Acquired absence of other organs (ICD-10) Family History Mother Family history of cancer Father Family history of CHF (congestive heart failure) Family history of hypertension Family history of myocardial infarction Social History Within the past year, how often did you have a drink containing alcohol: monthly or less Within the past year, how many standard drinks containing alcohol did you have on a typical day: 1 or 2 Within the past year, how often did you have six or more drinks on one occasion: never Total score: 0 Score interpretation: A score less than 3 is consistent with normal alcohol consumption. 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 Known occupational exposures/hazards: Yes Known occupational exposures/hazards details: silica , dust particles Highest level of school completed/degree received: some college, no degree Are you now , , , , never or living with a partner: In a typical week, how many times do you talk on the telephone with family, friends, or neighbors: 3 or more times per week How often do you get together with friends or relatives: once per week How often do you attend moravian or jainism services: never Do you belong to any clubs or organizations such as moravian groups unions, [employer] or athletic groups, or school groups: no Total score: 1 Score interpretation: A score of less than or equal to 1 indicates the most socially isolated. Little interest or pleasure in doing things: not at all Feeling down, depressed, or hopeless: not at all Feel stressed/tense/nervous/anxious/difficulty sleeping: to some extent Life stressors: recent of family or friend Life stressor details: son Do you think of yourself as: straight/heterosexual Gender Identity: female Meds Home Medications and Allergies Home Medications ?Medication ?Instructions ?Recorded ?Confirmed ?Type albuterol sulfate 90 mcg/actuation 2 inh inhalation Q4H PRN 06/05/23 04/03/25 History aerosol inhaler bronchospasm lisinopril 10 1 tab PO DAILY 06/05/23 04/03/25 History mg-hydrochlorothiazide 12.5 mg tablet azithromycin 250 mg tablet See Rx Instructions PO .COMPLEX #6 04/02/25 Rx (Zithromax Z-[place]) tabs fluticasone fur. 200 mcg-umeclid 1 inh inhalation DAILY 04/02/25 04/03/25 History 62.5 mcg-vilant 25 mcg inhalat.powder (Trelegy Ellipta) prednisone 10 mg tablet See Rx Instructions .Route 04/02/25 04/03/25 Rx .COMPLEX #30 tabs albuterol sulfate 2.5 mg/3 mL mg 04/03/25 History (0.083 %) solution for nebulization cholecalciferol (vitamin D3) 50 50 mcg PO DAILY 04/03/25 04/03/25 History mcg (2,000 unit) capsule ibuprofen 200 mg tablet (Addaprin) 200 mg PO TID-QID PRN pain 04/03/25 04/03/25 History magnesium 250 mg tablet 250 mg PO DAILY 04/03/25 04/03/25 History jrulsqof-fapd-rgld 8 mg-folic 400 1 tab PO DAILY 04/03/25 04/03/25 History mcg-K 50 mcg-lutein 300 mcg tablet ([facility]) potassium 99 mg tablet mg 04/03/25 History Allergies Allergy/AdvReac Type Severity Reaction Status Date / Time No Known Drug Allergies Allergy Verified 04/03/25 15:51 Exam Narrative Exam Narrative: Seen in room 216 she is sitting upright in a chair beside the window, with increased work of breathing and accessory muscle use. Head: Normocephalic atraumatic. Eyes EOMI. PERRLA. Mouth: Oropharynx is clear. Mucous membranes are moist. Neck: No thyromegaly. No JVD. Pulmonary: Faint light wheezes throughout all lung brooks. Very diminished breath sounds were all. Very tight. Using accessory muscles to breathe. Has a deep harsh cough but can barely expectorate any mucus. Cardiac: Heart sounds are somewhat distant. No rubs or gallops to auscultation. GI: Abdomen soft, normal bowel sounds to auscultation. Lower extremities: No pitting edema or ankles bilaterally. Skin: Warm and dry and well-perfused. No systemic rashes or lesions. Neurologic: A and O x 3. Psychiatric: Mildly anxious regarding her condition, as expected. Constitutional Vital Signs, click to edit/add: Last Vital Signs Temp 97.8 F 04/04/25 13:09 Pulse 78 04/04/25 13:09 Resp 18 04/04/25 13:09 BP 150/83 H 04/04/25 13:09 Pulse Ox 94 L 04/04/25 13:09 O2 Del Method Nasal Cannula 04/04/25 13:09 O2 Flow Rate 2 04/04/25 13:09 Results Labs Labs: Short CBC 04/03/25 04/04/25 Range/Units 16:13 05:53 WBC 8.5 14.9 H (4.0-11.0) 10^3/uL Hgb 15.3 15.0 (12.0-16.0) g/dL Hct 43.9 44.7 (36.0-48.0) % Plt Count 186 198 (150-450) 10^3/uL BMP 04/03/25 04/04/25 16:13 05:53 Sodium 141 140 Potassium 4.1 4.3 Chloride 101 101 Carbon Dioxide 29.8 30.5 BUN 13.0 19.0 H Creatinine 0.68 0.83 Glucose 101 125 H Calcium 10.0 9.5 Liver Function 04/03/25 04/04/25 Range/Units 16:13 05:53 Total Bilirubin 0.4 0.4 (0.2-1.0) mg/dL AST 20 21 (15-37) U/L ALT 26 25 (14-59) U/L Alkaline Phosphatase 95 91 (46-116) U/L Albumin 4.0 4.0 (3.4-5.0) g/dL ABG ABG results: 04/03/25 16:15 ABG pH 7.426 ABG pCO2 39.7 ABG pO2 95.5 ABG HCO3 26.0 ABG O2 Saturation 98.2 ABG Base Excess 1.7 Assessment and Plan Assessment and Plan (1) COPD exacerbation: (2) Hypoxemia: (3) Hypertension: (4) Prediabetes: Plan Assessment: Acute exacerbation of COPD. Possibility of bacterial bronchitis versus viral syndrome. Clinical history to suggest some asthma when she was much younger. Hypertension. Prediabetes. Acute hypoxic respiratory failure, due to the acute exacerbation of COPD. Plan: Continue inpatient hospital care. Increase corticosteroids from 40 mg IV every 8 hours to 60 mg IV 4 times daily. Will use Lasix 40 mg every morning to help reduce edema development from corticosteroids. GI protection with Protonix 40 mg p.o. daily. DVT prophylaxis with Lovenox 40 mg subcutaneously daily. Continue doxycycline 100 mg p.o. twice daily. DuoNebs scheduled 4 times a day with albuterol nebulizer every 3 hours as needed coughing or wheezing attacks. Encouraged early ambulation, as tolerated. Guaifenesin 1200 mg p.o. twice daily as a mucolytic. Sputum culture is ordered although I am not certain if she will be able to fully expectorate any mucus.
[2025-04-04] MEDS: METHYLPREDNISOLONE SOD SUCC PF 40 MG/ML VIAL 80 MG IVP ×2 (17:26→21:48)
[2025-04-04] MEDS: IBUPROFEN 200 MG TABLET PO (17:27)
[2025-04-04] MEDS: ALBUTEROL SULFATE 2.5 MG/3 ML VIAL NEB IH (18:52)
[2025-04-05] VITALS (27 sets, daily range): BP systolic 130–179; BP diastolic 73–87; PULSE 69–104; TEMP 36.5–36.7; O2SAT 92–98
[2025-04-05] MEDS: IPRATROPIUM/ALBUTEROL SULFATE 3 ML AMPUL.NEB IH ×4 (05:05→20:12)
[2025-04-05] MEDS: PANTOPRAZOLE SODIUM 40 MG TABLET.DR PO (05:56)
[2025-04-05] MEDS: METHYLPREDNISOLONE SOD SUCC PF 40 MG/ML VIAL 80 MG IVP ×4 (05:56→22:44)
[2025-04-05 06:29] LABS: Hematocrit 41.6 % (36.0-48.0); Hemoglobin 14.0 g/dL (12.0-16.0); Immature Granulocytes Abs Auto 0.05 10^3/uL (0.00-0.03); Immature Granulocytes Pct Auto 0.4 % (0.0-0.5); Lymphocytes Absolute Auto 1.0 10^3/uL (1.2-3.8); Mean Corpuscular HGB Conc 33.7 g/dL (29.9-35.2); Mean Corpuscular Hemoglobin 33.3 pg (26.7-34.0); Mean Corpuscular Volume 99.0 fL (81.0-99.0); Platelet Count 194 10^3/uL (150-450); Red Blood Count 4.20 10^6/uL (4.20-5.40); White Blood Count 12.6 10^3/uL (4.0-11.0)
[2025-04-05 06:44] LABS: INR 0.93; Partial Thromboplastin Time 27.6 sec (22.3-36.2); Prothrombin Time 9.9 sec (9.0-11.6)
[2025-04-05 06:51] LABS: Anion Gap 13.7; Blood Urea Nitrogen 23.0 mg/dL (7.0-18.0); Calcium 9.6 mg/dL (8.5-10.1); Carbon Dioxide 28.7 mmol/L (21.0-32.0); Chloride 101 mmol/L (98-107); Estimated GFR (African America >60 (>=60 mL/min/1.73m^2); Estimated GFR (Non-African Ame >60 (>=60 mL/min/1.73m^2); Glucose 134 mg/dL (74-106); Potassium 4.4 mmol/L (3.5-5.1); Sodium 139 mmol/L (136-145)
[2025-04-05] MEDS: ENOXAPARIN SODIUM 40 MG/0.4 ML SYRINGE SUBQ (08:41)
[2025-04-05] MEDS: MAGNESIUM OXIDE 400 MG TABLET PO (08:41)
[2025-04-05] MEDS: CHOLECALCIFEROL (VITAMIN D3) 25 MCG/1,000 UNITS TABLET 50 MCG PO (08:42)
[2025-04-05] MEDS: LISINOPRIL 10 MG TABLET PO (08:42)
[2025-04-05] MEDS: DOXYCYCLINE MONOHYDRATE 100 MG CAPSULE PO ×2 (08:44→20:33)
[2025-04-05] MEDS: FUROSEMIDE 40 MG/4 ML VIAL IVP (08:44)
[2025-04-05] MEDS: HYDROCHLOROTHIAZIDE 25 MG TABLET 12.5 MG PO (08:44)
[2025-04-05] MEDS: AMLODIPINE BESYLATE 5 MG TABLET 2.5 MG PO (08:44)
[2025-04-05] MEDS: MULTIVITAMIN TABLET 1 TAB PO (08:45)
--- NOTE | 2025-04-05 12:06 | PM.IMPN1 ---
Progress Note: A&P Assessment and Plan (1) COPD exacerbation: (2) Hypoxemia: (3) Hypertension: (4) Prediabetes: Plan Assessment: Acute (and rather severe) sudden exacerbation of COPD. Possibility of bacterial bronchitis Clinical history to suggest some asthma when she was much younger. Hypertension. Prediabetes. Acute hypoxic respiratory failure, due to the acute exacerbation of COPD. Plan: Continue inpatient hospital care. Continue increased corticosteroids from 40 mg IV every 8 hours to 60 mg IV 4 times daily for today. IV Lasix 40 mg every morning to help reduce edema from corticosteroids. GI protection with Protonix 40 mg p.o. daily. DVT prophylaxis with Lovenox 40 mg subcutaneously daily. Continue doxycycline 100 mg twice daily. DuoNebs scheduled 4 times a day with albuterol nebulizer every 3 hours as needed coughing or wheezing attacks. Encouraged early ambulation, as tolerated. Guaifenesin 1200 mg p.o. twice daily as a mucolytic. Sputum culture is ordered.... although I am not certain if she will be able to fully expectorate any mucus. Internal Medicine - PN: Subj Subjective Interval history: Today the patient is noticing some improvement in her breathing. Yesterday she was very frustrated because she felt like her breathing was not getting better. The patient also got a lot of instruction and teaching from the respiratory therapist today, which she appreciates. The patient still does not really have much of a cough. She is using less accessory muscles today. She is noticing a brisk diuresis from the Lasix that she got this morning. I discussed with the patient that I think at baseline her COPD is pretty well-controlled. If she could ambulate all through the long walkways and sidewalks at the [employer] she went to last weekend in [place] without any difficulty and before that she really never had to use her rescue inhaler or her home nebulizer then I suspect that her control of COPD at baseline is pretty good. But this exacerbation was particularly bad. She reports really poor sleep last night. She got frustrated with that and got up and took a shower F-4 in the morning she tells me. No other problems going on at this time: No diarrhea. No chest pain. No fevers or chills. On lab work: When she first presented to the ER her white blood count was 8.5. Yesterday morning it was up to 14.9. So I suspect that there was infection present that just did not show up in her leukocytosis when she was in the ER. Today it is white blood count is a little bit better at 12.6. Hemoglobin is good at 14.0. Potassium is in the normal at 4.4. BUN is rising a little bit going from 13-23 due to corticosteroids. Creatinine is staying stable at 0.68, 0.83, and 0.69. Exam Narrative Exam Narrative: General: Looking a little bit more comfortable today with less tripod positioning and a little bit less accessory muscle use with each breath. Pulmonary: Faint tiny wheezes throughout all lung brooks. Very diminished breath sounds were all. Very tight. Using accessory muscles to breathe. Has a deep harsh cough but can barely expectorate any mucus. Overall listening to her lungs they are about to 25% improved today compared to when I auscultated them yesterday. Cardiac: Heart sounds are somewhat distant. No rubs or gallops to auscultation. GI: Abdomen soft, normal bowel sounds to auscultation. Lower extremities: No pitting edema or ankles bilaterally. Skin: Warm and dry and well-perfused. No systemic rashes or lesions. Constitutional Vital Signs, click to edit/add: Last Vital Signs Temp 98.0 F 04/05/25 11:16 Pulse 96 H 04/05/25 11:49 Resp 18 04/05/25 11:16 BP 130/87 04/05/25 11:16 Pulse Ox 93 L 04/05/25 11:16 O2 Del Method Nasal Cannula 04/05/25 11:16 O2 Flow Rate 1 04/05/25 11:16 Internal Medicine - PN: Obj Da Labs Labs: Laboratory Results - last 24 hr 04/05/25 06:02 WBC 12.6 H RBC 4.20 Hgb 14.0 Hct 41.6 MCV 99.0 MCH 33.3 MCHC 33.7 RDW 12.3 Plt Count 194 MPV 9.5 Neut % (Auto) 90.7 H Lymph % (Auto) 7.6 L Nobles % (Auto) 1.2 L Eos % (Auto) 0.0 L Baso % (Auto) 0.1 L Neut # (Auto) 11.4 H Lymph # (Auto) 1.0 L Nobles # (Auto) 0.2 L Eos # (Auto) 0.0 Baso # (Auto) 0.0 Abs Immat Gran (auto) 0.05 H Imm/Tot Granulo (auto) 0.4 PT 9.9 INR 0.93 APTT 27.6 D-Dimer 0.21 Sodium 139 Potassium 4.4 Chloride 101 Carbon Dioxide 28.7 Anion Gap 13.7 BUN 23.0 H Creatinine 0.69 Est GFR ( Amer) >60 Est GFR (Non-Af Amer) >60 BUN/Creatinine Ratio 33.3 Glucose 134 H Calcium 9.6 Troponin I High Sens 6.2
[2025-04-05] MEDS: IBUPROFEN 200 MG TABLET PO (20:33)
[2025-04-06] VITALS (25 sets, daily range): BP systolic 130–168; BP diastolic 78–87; PULSE 61–105; TEMP 36.4–36.7; O2SAT 90–95
[2025-04-06] MEDS: IPRATROPIUM/ALBUTEROL SULFATE 3 ML AMPUL.NEB IH ×3 (05:19→21:11)
[2025-04-06] MEDS: METHYLPREDNISOLONE SOD SUCC PF 40 MG/ML VIAL 80 MG IVP (05:27)
[2025-04-06 05:30] LABS: Hematocrit 40.9 % (36.0-48.0); Hemoglobin 13.9 g/dL (12.0-16.0); Immature Granulocytes Abs Auto 0.12 10^3/uL (0.00-0.03); Immature Granulocytes Pct Auto 0.9 % (0.0-0.5); Lymphocytes Absolute Auto 0.9 10^3/uL (1.2-3.8); Mean Corpuscular HGB Conc 34.0 g/dL (29.9-35.2); Mean Corpuscular Hemoglobin 33.4 pg (26.7-34.0); Mean Corpuscular Volume 98.3 fL (81.0-99.0); Platelet Count 203 10^3/uL (150-450); Red Blood Count 4.16 10^6/uL (4.20-5.40); White Blood Count 13.9 10^3/uL (4.0-11.0)
[2025-04-06] MEDS: PANTOPRAZOLE SODIUM 40 MG TABLET.DR PO (05:30)
[2025-04-06 05:39] LABS: Anion Gap 12.0; Blood Urea Nitrogen 31.0 mg/dL (7.0-18.0); Calcium 9.4 mg/dL (8.5-10.1); Carbon Dioxide 30.4 mmol/L (21.0-32.0); Chloride 100 mmol/L (98-107); Estimated GFR (African America >60 (>=60 mL/min/1.73m^2); Estimated GFR (Non-African Ame >60 (>=60 mL/min/1.73m^2); Glucose 123 mg/dL (74-106); Potassium 4.4 mmol/L (3.5-5.1); Sodium 138 mmol/L (136-145)
--- NOTE | 2025-04-06 07:50 | CM.NOTE ---
Rounds made with Dr. Fuller, discussed plan of care with pt. Pt continues to dyspnea at rest and requiring oxygen. No discharge today.
[2025-04-06] MEDS: ENOXAPARIN SODIUM 40 MG/0.4 ML SYRINGE SUBQ (08:49)
[2025-04-06] MEDS: CHOLECALCIFEROL (VITAMIN D3) 25 MCG/1,000 UNITS TABLET 50 MCG PO (08:49)
[2025-04-06] MEDS: DOXYCYCLINE MONOHYDRATE 100 MG CAPSULE PO ×2 (08:49→21:25)
[2025-04-06] MEDS: FUROSEMIDE 40 MG/4 ML VIAL IVP (08:50)
[2025-04-06] MEDS: LISINOPRIL 10 MG TABLET PO ×2 (08:50→21:25)
[2025-04-06] MEDS: AMLODIPINE BESYLATE 5 MG TABLET 2.5 MG PO ×2 (08:50→10:29)
[2025-04-06] MEDS: MAGNESIUM OXIDE 400 MG TABLET PO (08:50)
[2025-04-06] MEDS: HYDROCHLOROTHIAZIDE 25 MG TABLET 12.5 MG PO (08:50)
[2025-04-06] MEDS: MULTIVITAMIN TABLET 1 TAB PO (08:50)
--- NOTE | 2025-04-06 09:32 | P.PN_ITS ---
Progress Note: Subjective Subjective Interval history: Patient continues to have wheezing, dry cough. No chest pain palpitation. No abdominal pain, nausea or vomiting. Exam Narrative Exam Narrative: [pt is awake and alert. oriented to place, time and person, patient continues to have moderate respiratory distress and tachypnea. Respiratory is about 22. HEENT: [place] conjunctiva and NL buccal mucosa Neck: Supple, no tenderness Endocrine: No Thyromegaly. Vascular: No JVD or carotid bruit. Lymphatic: No cervical lymphadenopathy. Chest: Diminished breath sound. Bilateral wheezing. Heart RRR, no extra sound or murmur. Abd: Soft, no tenderness, no rebound and no rigidity. Increase abd girth therefore clinically I could not exclude the possibility of intra abd mass or organomegaly. LE: No cyanosis or clubbing, no varices or edema. Neuro: A A O. Nl speech, comprehension and attention. Nl and symetrical motor and tone examination through out. []] Constitutional Vital Signs, click to edit/add: Last Vital Signs Temp 97.7 F 04/06/25 07:14 Pulse 96 H 04/06/25 07:53 Resp 18 04/06/25 07:14 BP 150/82 H 04/06/25 07:14 Pulse Ox 93 L 04/06/25 07:14 O2 Del Method Nasal Cannula 04/06/25 07:14 O2 Flow Rate 1 04/06/25 07:14 Progress Note: Objective Labs Labs: Short CBC 04/06/25 Range/Units 05:06 WBC 13.9 H (4.0-11.0) 10^3/uL Hgb 13.9 (12.0-16.0) g/dL Hct 40.9 (36.0-48.0) % Plt Count 203 (150-450) 10^3/uL BMP 04/06/25 05:06 Sodium 138 Potassium 4.4 Chloride 100 Carbon Dioxide 30.4 BUN 31.0 H Creatinine 0.74 Glucose 123 H Calcium 9.4 Progress Note: A&P Assessment and Plan (1) COPD exacerbation: (2) Hypoxemia: (3) Hypertension: (4) Prediabetes: Plan Acute COPD exacerbation with acute bronchitis COVID and influenza A and B are negative Requested RSV. Could not exclude other possible viral etiology such as parainfluenza, rhino, mid human pneumo virus, pertussis, adenovirus and others. These are not tested here at [place]. Continue albuterol, Atrovent, doxycycline and Solu-Medrol. Add Pulmicort inhaler twice a day. D-dimer is negative. The likelihood of PE is low. Acute, probable chronic hypoxic respiratory failure. Likely secondary to above. Patient never been on oxygen Home O2 evaluation prior to discharge Hypertension, poor control. Increase lisinopril up to 10 mg twice a day. Increase amlodipine up to 5 mg daily. Continue to monitor and adjust. Tobacco addiction Counseling and education were provided Patient has been a smoker for a long time. NicoDerm patch. High risk of lung cancer Recommend yearly low-dose radiation CAT scan of the chest to screen for lung cancer. Last 1 was completed 10 months ago. CAT scan done showed small lung nodules. Recommend repeat in June or July to be arranged by PCP and/or industrial safety engineer. Chronic, subacute medical conditions not listed above, abnormal labs and imaging. These would need to be addressed. Could be addressed later on or in the outpatient setting by PCP collaboration with other needed outpatient pro viders when time and condition are appropriate.
[2025-04-06] MEDS: BUDESONIDE 0.5 MG/2 ML AMPULE NEB IH ×2 (10:51→21:11)
[2025-04-06] MEDS: ALBUTEROL SULFATE 2.5 MG/3 ML VIAL NEB IH (10:51)
[2025-04-06] MEDS: METHYLPREDNISOLONE SOD SUCC PF 125 MG/2 ML VIAL 40 MG IVP (13:27)
[2025-04-06] MEDS: METHYLPREDNISOLONE SOD SUCC PF 40 MG/ML VIAL IVP (21:26)
[2025-04-07] VITALS (17 sets, daily range): BP systolic 146–167; BP diastolic 74–88; PULSE 62–103; TEMP 36.3–36.8; O2SAT 90–93
[2025-04-07] MEDS: METHYLPREDNISOLONE SOD SUCC PF 40 MG/ML VIAL IVP ×2 (06:03→17:36)
[2025-04-07] MEDS: PANTOPRAZOLE SODIUM 40 MG TABLET.DR PO (06:03)
--- NOTE | 2025-04-07 08:20 | CM.NOTE ---
Rounds made with Dr. Fuller, discussed plan of care with pt. Pt continues to require oxygen, no discharge today.
[2025-04-07] MEDS: IPRATROPIUM/ALBUTEROL SULFATE 3 ML AMPUL.NEB IH ×3 (08:51→20:05)
[2025-04-07] MEDS: BUDESONIDE 0.5 MG/2 ML AMPULE NEB IH ×2 (08:51→20:05)
[2025-04-07] MEDS: MAGNESIUM OXIDE 400 MG TABLET PO (08:53)
[2025-04-07] MEDS: MULTIVITAMIN TABLET 1 TAB PO (08:53)
[2025-04-07] MEDS: HYDROCHLOROTHIAZIDE 25 MG TABLET 12.5 MG PO (08:53)
[2025-04-07] MEDS: LISINOPRIL 20 MG TABLET PO (08:53)
[2025-04-07] MEDS: DOXYCYCLINE MONOHYDRATE 100 MG CAPSULE PO ×2 (08:53→21:15)
[2025-04-07] MEDS: ENOXAPARIN SODIUM 40 MG/0.4 ML SYRINGE SUBQ (08:53)
[2025-04-07] MEDS: AMLODIPINE BESYLATE 5 MG TABLET PO (08:53)
[2025-04-07] MEDS: CHOLECALCIFEROL (VITAMIN D3) 25 MCG/1,000 UNITS TABLET 50 MCG PO (08:54)
--- NOTE | 2025-04-07 10:54 | PM.PN ---
Progress Note: Subjective Subjective Interval history: Patient continues to have wheezing, dry cough. Much less intense than before. No chest pain palpitation. No abdominal pain, nausea or vomiting. Exam Narrative Exam Narrative: [pt is awake and alert. oriented to place, time and person, patient appears to be more comfortable than yesterday. Less tachypneic. She is up in a chair. HEENT: [place] conjunctiva and NL buccal mucosa Neck: Supple, no tenderness Endocrine: No Thyromegaly. Vascular: No JVD or carotid bruit. Lymphatic: No cervical lymphadenopathy. Chest: Diminished breath sound. Bilateral wheezing. Improved bilateral breath entry and diminished wheezing compared to 04/06 Heart RRR, no extra sound or murmur. Abd: Soft, no tenderness, no rebound and no rigidity. Increase abd girth therefore clinically I could not exclude the possibility of intra abd mass or organomegaly. LE: No cyanosis or clubbing, no varices or edema. Neuro: A A O. Nl speech, comprehension and attention. Nl and symetrical motor and tone examination through out. []] Constitutional Vital Signs, click to edit/add: Last Vital Signs Temp 97.8 F 04/07/25 08:44 Pulse 103 H 04/07/25 10:00 Resp 18 04/07/25 09:43 BP 152/88 H 04/07/25 08:44 Pulse Ox 92 L 04/07/25 09:43 O2 Del Method Room Air 04/07/25 09:43 O2 Flow Rate 0.5 04/07/25 09:02 Progress Note: A&P Assessment and Plan (1) COPD exacerbation: (2) Hypoxemia: (3) Hypertension: (4) Prediabetes: Plan Acute COPD exacerbation with acute bronchitis COVID and influenza A and B are negative Requested RSV. This came back negative. Could not exclude other possible viral etiology such as parainfluenza, rhino, mid human pneumo virus, pertussis, adenovirus and others. These are not tested here at [place]. Continue albuterol, Atrovent, doxycycline and Solu-Medrol. Add Pulmicort inhaler twice a day. D-dimer is negative. The likelihood of PE is low. Symptoms started to improve Continue current treatment. Potential discharge tomorrow. Acute, probable chronic hypoxic respiratory failure. Likely secondary to above. Patient never been on oxygen Home O2 evaluation prior to discharge Hypertension, poor control. Increase lisinopril up to 20 mg daily Patient continues to have borderline tachycardia. Changed amlodipine 5 mg daily to Cardizem CD 180 mg daily. Tobacco addiction Counseling and education were provided Patient has been a smoker for a long time. NicoDerm patch. High risk of lung cancer Recommend yearly low-dose radiation CAT scan of the chest to screen for lung cancer. Last 1 was completed 10 months ago. CAT scan done showed small lung nodules. Recommend repeat in June or July to be arranged by PCP and/or insecticide sprayer. Chronic, subacute medical conditions not listed above, abnormal labs and imaging. These would need to be addressed. Could be addressed later on or in the outpatient setting by PCP collaboration with other needed outpatient providers when time and condition are appropriate. Potential discharge in a.m.
--- NOTE | 2025-04-07 11:52 | CM.NOTE ---
CM in to speak with pt regarding chronic disease and management. Pt has COPD. Pt states she is very active at home. Pt does have plater helper, follows with Dr. Carreno. Pt has appointment scheduled for Apr 22 at 9:00am. Discussed with pt about pulmonary rehab and provided pt with informational pamphlet. Pt off oxygen at this time. Pt denies any discharge needs at this time. Pt voices about loss of her son and starting to smoke again. Pt verbalizes that she is quitting, pt denies need for nicotine patch. CM provides support.
--- NOTE | 2025-04-07 12:57 | CM.NOTE ---
Important Message From [employer] discussed with pt, pt verbalizes understanding and signs form. Original given to pt and copy placed on pt's chart.
[2025-04-07] MEDS: DILTIAZEM HCL 60 MG TABLET 30 MG PO ×2 (15:28→21:15)
[2025-04-07] MEDS: ALPRAZOLAM 0.5 MG TABLET PO (21:16)
[2025-04-08] VITALS (9 sets, daily range): BP systolic 137–160; BP diastolic 79–90; PULSE 74–97; TEMP 36.3–36.7; O2SAT 90–95
[2025-04-08] MEDS: PANTOPRAZOLE SODIUM 40 MG TABLET.DR PO (05:37)
[2025-04-08] MEDS: METHYLPREDNISOLONE SOD SUCC PF 40 MG/ML VIAL IVP ×3 (05:37→21:21)
--- NOTE | 2025-04-08 07:40 | CM.NOTE ---
Rounds made with Dr. Fuller, pt c/o increased work of breathing today. No discharge today.
--- NOTE | 2025-04-08 09:13 | P.PN_ITS ---
Progress Note: Subjective Subjective Interval history: Patient continues to have wheezing, dry cough. May be worse compared to yesterday as per patient. No chest pain palpitation. No abdominal pain, nausea or vomiting. Exam Narrative Exam Narrative: [pt is awake and alert. oriented to place, time and person, patient appears to be more comfortable than yesterday. Less tachypneic. She is up in a chair. HEENT: [place] conjunctiva and NL buccal mucosa Neck: Supple, no tenderness Endocrine: No Thyromegaly. Vascular: No JVD or carotid bruit. Lymphatic: No cervical lymphadenopathy. Chest: Diminished breath sound. Bilateral wheezing. Same as yesterday. Heart RRR, no extra sound or murmur. Abd: Soft, no tenderness, no rebound and no rigidity. Increase abd girth therefore clinically I could not exclude the possibility of intra abd mass or organomegaly. LE: No cyanosis or clubbing, no varices or edema. Neuro: A A O. Nl speech, comprehension and attention. Nl and symetrical motor and tone examination through out. []] Constitutional Vital Signs, click to edit/add: Last Vital Signs Temp 97.7 F 04/08/25 07:23 Pulse 79 04/08/25 07:23 Resp 20 04/08/25 07:23 BP 152/79 H 04/08/25 07:23 Pulse Ox 90 L 04/08/25 07:23 O2 Del Method Room Air 04/08/25 07:23 O2 Flow Rate 0.5 04/07/25 09:02 Progress Note: A&P Assessment and Plan (1) COPD exacerbation: (2) Hypoxemia: (3) Hypertension: (4) Prediabetes: Plan Acute COPD exacerbation with acute bronchitis COVID and influenza A and B are negative Requested RSV. This came back negative. Could not exclude other possible viral etiology such as parainfluenza, rhino, mid human pneumo virus, pertussis, adenovirus and others. These are not tested here at [facility]. Continue albuterol, Atrovent, doxycycline and Solu-Medrol. Added Pulmicort inhaler twice a day. D-dimer is negative. The likelihood of PE is low. Symptoms started to improve Continue current treatment. Extended hospitalization another day. Potential discharge tomorrow. Acute, probable chronic hypoxic respiratory failure. Likely secondary to above. Patient never been on oxygen Home O2 evaluation prior to discharge Hypertension, poor control. Increased lisinopril up to 20 mg daily Patient continues to have borderline tachycardia. Changed amlodipine 5 mg daily to Cardizem CD 180 mg daily. Increased Cardizem up to 240 mg daily. Tobacco addiction Counseling and education were provided Patient has been a smoker for a long time. NicoDerm patch. High risk of lung cancer Recommend yearly low-dose radiation CAT scan of the chest to screen for lung cancer. Last 1 was completed 10 months ago. CAT scan done showed small lung nodules. Recommend repeat in June or July to be arranged by PCP and/or review scheduling coordinator. Chronic, subacute medical conditions not listed above, abnormal labs and imaging. These would need to be addressed. Could be addressed later on or in the outpatient setting by PCP collaboration with other needed outpatient providers when time and condition are appropriate. Potential discharge in a.m.
[2025-04-08] MEDS: MAGNESIUM OXIDE 400 MG TABLET PO (09:48)
[2025-04-08] MEDS: MULTIVITAMIN TABLET 1 TAB PO (09:48)
[2025-04-08] MEDS: HYDROCHLOROTHIAZIDE 25 MG TABLET 12.5 MG PO (09:48)
[2025-04-08] MEDS: ENOXAPARIN SODIUM 40 MG/0.4 ML SYRINGE SUBQ (09:48)
[2025-04-08] MEDS: DOXYCYCLINE MONOHYDRATE 100 MG CAPSULE PO ×2 (09:48→21:21)
[2025-04-08] MEDS: CHOLECALCIFEROL (VITAMIN D3) 25 MCG/1,000 UNITS TABLET 50 MCG PO (09:48)
[2025-04-08] MEDS: LISINOPRIL 20 MG TABLET PO (09:48)
[2025-04-08] MEDS: BUDESONIDE 0.5 MG/2 ML AMPULE NEB IH ×2 (11:09→22:12)
[2025-04-08] MEDS: IPRATROPIUM/ALBUTEROL SULFATE 3 ML AMPUL.NEB IH ×3 (11:09→22:12)
[2025-04-08] MEDS: ALPRAZOLAM 0.5 MG TABLET 1 MG PO (21:22)
[2025-04-09 03:56] VITALS: BP 130/82; PULSE 78; TEMP 36.6; O2SAT 90
[2025-04-09 04:52] VITALS: PULSE 88; O2SAT 91
[2025-04-09] MEDS: IPRATROPIUM/ALBUTEROL SULFATE 3 ML AMPUL.NEB IH ×2 (04:52→11:38)
[2025-04-09] MEDS: PANTOPRAZOLE SODIUM 40 MG TABLET.DR PO (05:37)
[2025-04-09] MEDS: METHYLPREDNISOLONE SOD SUCC PF 40 MG/ML VIAL IVP (05:39)
[2025-04-09 07:55] VITALS: BP 165/90; PULSE 92; TEMP 36.6; O2SAT 91
[2025-04-09] MEDS: ENOXAPARIN SODIUM 40 MG/0.4 ML SYRINGE SUBQ (08:16)
[2025-04-09] MEDS: MULTIVITAMIN TABLET 1 TAB PO (08:17)
[2025-04-09] MEDS: HYDROCHLOROTHIAZIDE 25 MG TABLET 12.5 MG PO (08:17)
[2025-04-09] MEDS: LISINOPRIL 20 MG TABLET PO (08:17)
[2025-04-09] MEDS: DILTIAZEM HCL 240 MG CAP.ER.24H PO (08:17)
[2025-04-09] MEDS: MAGNESIUM OXIDE 400 MG TABLET PO (08:19)
[2025-04-09] MEDS: DOXYCYCLINE MONOHYDRATE 100 MG CAPSULE PO (08:19)
[2025-04-09] MEDS: CHOLECALCIFEROL (VITAMIN D3) 25 MCG/1,000 UNITS TABLET 50 MCG PO (08:19)
--- NOTE | 2025-04-09 08:30 | CM.NOTE ---
Rounds made with Dr. Fuller, pt will discharge to home. Pt will have f/u scheduled with Dr. Carreno and PCP. Pt has home nebulizer machine, Dr. Fuller will send medication for nebulizer. Discussed discharge medications with pt. Pt verbalizes understanding. Pt will have walk test prior to discharge for any home oxygen needs.
[2025-04-09 09:26] VITALS: O2SAT 92
--- NOTE | 2025-04-09 09:51 | CM.NOTE ---
Message Dr. Fuller on pt's walk test. Pt does not qualify for home oxygen. No other discharge needs at this time.
--- NOTE | 2025-04-09 10:29 | PM.DS1 ---
DS: Providers Provider Date of admission: 04/03/25 20:26 Primary care physician: Piter Duff MD DS: Diagnosis Discharge Diagnosis (1) COPD exacerbation: (2) Hypoxemia: (3) Hypertension: (4) Prediabetes: Plan As listed above, below and others that are not listed DS: Summary Hospital Course Hospital Course: Ms. Hidalgo is a 69-year-old female with a known diagnosis of COPD. She came in with shortness of breath, cough and congestion. Acute COPD exacerbation with acute bronchitis COVID and influenza A and B are negative Requested RSV. This came back negative. Could not exclude other possible viral etiology such as parainfluenza, rhino, mid human pneumo virus, pertussis, adenovirus and others. These are not tested here at [facility]. Continue albuterol, Atrovent, doxycycline and Solu-Medrol. Added Pulmicort inhaler twice a day. D-dimer is negative. The likelihood of PE is low. Symptoms started to improve Continue current treatment. Significant improvement over the last 24 hours. Complete resolution of bilateral wheezing. Patient did not qualify for oxygen. Patient will be discharged home today to follow-up with the pulmonary team Acute hypoxic respiratory failure secondary to above. D-dimer is negative. The likelihood of PE is low. Likely secondary to above. Patient never been on oxygen Home O2 evaluation prior to discharge Patient did not qualify for oxygen on discharge. Hypertension, poor control. Increased lisinopril up to 20 mg daily Patient continues to have borderline tachycardia. Changed amlodipine 5 mg daily to Cardizem CD 180 mg daily. Patient will be discharged home on the lisinopril 10/12.5 twice a day and Cardizem 180 mg daily. She was on lisinopril 10/12.51 daily prior to admission. Tobacco addiction Counseling and education were provided Patient has been a smoker for a long time. NicoDerm patch. High risk of lung cancer Recommend yearly low-dose radiation CAT scan of the chest to screen for lung cancer. Last 1 was completed 10 months ago. CAT scan done showed small lung nodules. Recommend repeat in June or July to be arranged by PCP and/or online publisher. Chronic, subacute medical conditions not listed above, abnormal labs and imaging. These would need to be addressed. Could be addressed later on or in the outpatient setting by PCP collaboration with other needed outpatient providers when time and condition are appropriate. Patient has medical issues as listed above and others that are not listed. All appear to be stable. Patient is feeling great. Back to baseline state. Complete resolution of wheezing. Complete resolution of hypoxemia. No tachypnea. At this time, I do not have any clear or strong clinical justification to extend inpatient hospitalization. Patient however will require close and frequent monitoring as well as additional work-up, investigation and therapeutic intervention that could take place from this point on post discharge. That is to prevent relapse, decompensation, rehospitalization and other medical implications.. I instructed patient to ask her primary care doctor to obtain [facility] record entirely to address abnormalities seen on labs and imaging that I have and have not addressed during this hospitalization, follow-up on pending blood work, imaging and pathology is if available and to follow-up on needed medical care in the outpatient setting. Time Spent with Patient Time attestation: Total time spent providing and/or coordinating discharge services: Exam Constitutional Vital Signs, click to edit/add: Last Vital Signs Temp 97.8 F 04/09/25 07:55 Pulse 92 H 04/09/25 07:55 Resp 20 04/09/25 07:55 BP 165/90 H 04/09/25 07:55 Pulse Ox 91 L 04/09/25 07:55 O2 Del Method Room Air 04/09/25 07:55 O2 Flow Rate 0.5 04/07/25 09:02 Discharge Plan Discharge Disposition: Home, Self-Care Discharge Medications: New ipratropium-albuterol 0.5 mg-3 mg(2.5 mg base)/3 mL Solution For Nebulization 3 ml inhalation Q6H PRN (Reason: Wheezing or shortness of breath) Qty: 180 2RF diltiazem HCl 180 mg Capsule,Extended Release 24hr 180 mg PO QD Qty: 30 2RF prednisone 20 mg tablet 20 mg PO .as directed Qty: 15 0RF Rx Instructions: Take 1 tablet twice a day for 4 days Then 1 tablet daily for 4 days Then half a tablet daily for 6 days Continued albuterol sulfate 90 mcg/actuation HFA aerosol inhaler 2 inh INHALATION Q4H PRN (Reason: bronchospasm) Rx Instructions: Q4-6 hours prn [facility] 8 mg iron-400 mcg-50 mcg tablet 1 tab PO DAILY potassium 99 mg tablet cholecalciferol (vitamin D3) 50 mcg (2,000 unit) capsule 50 mcg PO DAILY magnesium 250 mg tablet 250 mg PO DAILY ibuprofen [Addaprin] 200 mg tablet 200 mg PO TID-QID PRN (Reason: pain) Madilerajan Ellipta 200-62.5-25 mcg blister with device 1 inh INHALATION DAILY azithromycin [Zithromax Z-[place]] 250 mg tablet See Rx Instructions .ROUTE .COMPLEX Qty: 6 0RF Rx Instructions: For 250 mg dose pack: take 500 mg today (day 1), then 250 mg for 4 days (days 2-5) Changed lisinopril-hydrochlorothiazide 10-12.5 mg tablet 1 tab PO BID Qty: 60 1RF Discontinued albuterol sulfate 2.5 mg /3 mL (0.083 %) solution for nebulization prednisone 10 mg tablet See Rx Instructions .ROUTE .COMPLEX Qty: 30 0RF Rx Instructions: Take 5 tablets on days 1-2, 4 tabs on days 3-4, 3 tabs on days 5-6, 2 tabs on days 7-8, 1 tab on days 9-10. Print Language: Malay Patient Instructions: Prednisone (By mouth), Acute Bronchitis (GEN), COPD (Chronic Obstructive Pulmonary Disease) (DC) Activity Restrictions/Additional Instructions: I may not have addressed or treated all of your medical illnesses or the abnormal blood work or imaging studies during this hospitalization. Please ask your primary care provider to obtain [facility] records entirely to follow up on all of the abnormal physical, laboratory, and imaging findings that I have not addressed. Please return back to the emergency room or seek medical attention if your symptoms worsen or return. Please continue to try to quit smoking. I made some adjustment on your blood pressure medications. Your primary care doctor will need to continue to adjust blood pressure medications to keep your blood pressure under control. Please continue to have every year low-dose radiation CAT scan of the chest to screen for lung cancer to be arranged by your primary care doctor or lung doctor. That is to make sure that we detect lung cancer at the early stage. Discharging you from [facility] does not mean that your medical care ends here and now. You may still need additional monitoring, work up, investigation, and treatment plan to be handled from this point on by out patient providers including your primary care provider and specialists. For any medication question, please contact your retail pharmacist or your primary care provider. Thank you. Forms: Portal Instructions Follow Up Appointments: Dr. Omega Manjarrez. 04/16 @ 11:30am [phone] Dr. Wai Mortensen. 04/22 @ 9:00am [phone]
[2025-04-09] MEDS: BUDESONIDE 0.5 MG/2 ML AMPULE NEB IH (11:38)
[2025-04-09 11:41] VITALS: PULSE 90; O2SAT 92
--- NOTE | 2025-04-10 13:27 | CM.DCFOLLOWU ---
Person spoke with: Xuan How are you feeling? Much better How is your pain? No pain Did you understand your discharge instructions? Yes Do you have any questions about your discharge instructions? No Were you given any prescriptions at discharge? Yes Were you able to get your prescriptions filled? Yes Do you understand how to take your medications as ordered? Yes Do you have any questions about your follow up appointment and do you plan to keep your follow up appointment? No questions, pt plans on going to appointments Is there anything else that you would like to discuss? No Questions/Comments/Concerns/Other:
== END 2025-04-09 12:10 | disposition home or self-care (01) | DRG 190 ==
LOC: ER 19:10 → MS 20:38
PROVIDERS: Hospitalist; Admitting Provider Internal Medicine; Emergency Provider Emergency Medicine; PCP Family Medicine; Visit Provider Internal Medicine
DX: J44.1 Chronic obstructive pulmonary disease with (acute) exacerbation (principal); J96.01 Acute respiratory failure with hypoxia; J20.9 Acute bronchitis, unspecified; F17.200 Nicotine dependence, unspecified, uncomplicated; Z86.711 Personal history of pulmonary embolism; I10 Essential (primary) hypertension; R73.03 Prediabetes; J44.0 Chronic obstructive pulmonary disease with (acute) lower respiratory infection; Z63.4 Disappearance and death of family member; Z98.51 Tubal ligation status; Z79.899 Other long term (current) drug therapy
CPT/HCPCS: 36415; 36600; 71045; 80048; 80053; 82805; 83735; 83880; 84484; 85025; 85378; 85610; 85730; 87420; 87804; 87811; 93005; 94640; 94761; 96365; 96374; 96375; 99285; 99406; J1650; J1938; J2919; J3475